=== PATIENT | female | born 1990 | race Caucasian/White ===

== ENCOUNTER 2021-09-22 13:46 | Outpatient (CLI) | payer BC, SELFPAY ==
--- NOTE | 2021-09-22 14:00 | CRLHL7_ITS ---
For Patients: As a result of the Century Cures Act, medical imaging exams and procedure reports are released immediately into your electronic medical record. You may view this report before your referring provider. If you have questions, please contact your health care provider. INDICATION: hx of delivery at 34w COMPARISON: 07/24/2021 TECHNIQUE: Limited transvaginal real time colunga scale imaging of the cervix was performed. FINDINGS: Cervix is closed and measures 3.9 cm. No funneling. heart rate 149 beats per minute. Placenta is posterior. IMPRESSION: Closed cervix measuring 3.9 cm. Dictated by Jose Antonio Wheeler MD @ 09/22/2021 2:57:29 PM (Electronically Signed)
== END 2021-09-22 13:47 | disposition home or self-care (01) ==
LOC: US 13:47
PROVIDERS: Visit Provider Advanced Practice Midwife
DX: O09.219 Supervision of pregnancy with history of pre-term labor, unspecified trimester (principal)
CPT/HCPCS: 76817

== ENCOUNTER 2021-10-23 15:59 | Outpatient (CLI) | payer BC, SELFPAY | END 2021-10-23 16:00 | disposition home or self-care (01) | LOC: NFLDREF 16:00 | PROVIDERS: Visit Provider Advanced Practice Midwife | DX: Z34.92 Encounter for supervision of normal pregnancy, unspecified, second trimester (principal); Z3A.21 21 weeks gestation of pregnancy | CPT/HCPCS: 87086 ==

== ENCOUNTER 2021-12-18 14:29 | Outpatient (CLI) | payer BC, SELFPAY ==
[2021-12-20 20:14] LABS: Rapid Plasma Reagin (RPR) Non Reactive (Non Reactive)
== END 2021-12-18 14:30 | disposition home or self-care (01) ==
PROVIDERS: Visit Provider Advanced Practice Midwife
DX: Z34.93 Encounter for supervision of normal pregnancy, unspecified, third trimester (principal); Z67.21 Type B blood, Rh negative; Z3A.28 28 weeks gestation of pregnancy
CPT/HCPCS: 86592; 86850

== ENCOUNTER 2022-01-08 14:55 | Outpatient (CLI) | payer BC, SELFPAY ==
--- NOTE | 2022-01-08 15:00 | CRLHL7_ITS ---
For Patients: As a result of the Century Cures Act, medical imaging exams and procedure reports are released immediately into your electronic medical record. You may view this report before your referring provider. If you have questions, please contact your health care provider. INDICATION: Third trimester scan, evaluate growth. HX OF LABOR, MEASURING SMALL FOR DATES COMPARISON: 09/22/2021 TECHNIQUE: Real time colunga scale imaging of the fetus was performed. FINDINGS: Sonographic imaging demonstrates a single living intrauterine gestation. Fetus demonstrates a regular cardiac rate of 139 beats per minute. Fetus has a vertex position. The placenta lies posterior. Amniotic fluid volume appears normal and there is a single deepest vertical pocket: 4.6 cm. The estimated weight is 1727gm which lies at the 24th %. BPD 86th percentile. HC 78th percentile. AC 43rd percentile. FL less than 3rd percentile. The HC/AC ratio measures 1.12 range (0.96-1.14). Transvaginal measurement of the cervix measures 3.7 cm. No funneling. IMPRESSION: Closed cervix measuring 3.7 cm. No funneling. Sonographic gestational age 32 weeks 1 day and sonographic due date 03/04/2022. Good correlation with dates. Normal interval growth. Estimated weight 24th percentile. Abdominal circumference 43rd percentile. Femur length less than 3rd percentile. Dictated by Jose Antonio Wheeler MD @ 01/09/2022 8:08:49 AM (Electronically Signed)
== END 2022-01-08 14:56 | disposition home or self-care (01) ==
LOC: US 14:55
PROVIDERS: Visit Provider Advanced Practice Midwife
DX: O36.5930 Maternal care for other known or suspected poor fetal growth, third trimester, not applicable or unspecified (principal); Z3A.32 32 weeks gestation of pregnancy
CPT/HCPCS: 76816; 76817

== ENCOUNTER 2022-01-19 14:58 | Outpatient (CLI) | payer BC, SELFPAY ==
--- OUTSIDE RECORDS SUMMARY | 2022-01-19 15:20 | XMS_ITS | Clinical Summary ---
:1990 Author Organization [facility] Address [address] [place] [id number] Care Team Providers Name Role Phone Unavailable Primary Care Provider Unavailable Allergies No known active allergies Medications No known medications Active Problems Problem Noted Date History of pneumothorax 04/19/2017 Adjustment disorder with anxious mood 09/11/2015 Underweight 12/12/2014 MVP (mitral valve prolapse) 12/12/2010 Resolved Problems Problem Noted Date Resolved Date Chronic left-sided low back pain with left-sided sciatica 04/17/2020 Migraine headache 12/03/2014 12/03/2014 Spontaneous pneumothorax, LEFT 12/19/2010 6 CARDIOVASCULAR SCREENING; LDL GOAL LESS THAN 160 01/12/2010 12/12/2014 Lumbar radiculopathy 03/26/2008 05/23/2008 Irregular menstrual cycle 01/26/2005 02/25/2016 Overview: heavy, frequent cycles, anovulation? Immunizations Name Administration Dates Next Due Mantoux Tuberculin Skin Test 09/19/2003 TD (ADULT, 7+) 12/27/2001 TDAP Vaccine (Boostrix) 10/25/2012 Family History Medical History Relation Comments Family History Negative Father Cancer - colorectal Maternal Grandfather Diabetes Maternal Grandfather Heart Disease Maternal Grandfather Prostate Cancer Maternal Grandfather Hypertension Maternal Grandmother Hypertension Mother Prostate Cancer Paternal Grandfather Breast Cancer Paternal Grandmother Relation Status Comments Father Alive Maternal Grandfather Alive Maternal Grandmother Alive Mother Alive Paternal Grandfather Alive Paternal Grandmother Alive Social History Tobacco Use Types Packs/Day Years Used Date Smoking Tobacco: Never Smokeless Tobacco: Never Tobacco Cessation: Counseling Given: No Alcohol Use Standard Drinks/Week Comments Yes 0 (1 standard drink = 0.6 oz pure alcoho l) Sex Assigned at Date Recorded Female 05/29/2020 7:33 PM CDT Last Filed Vital Signs Vital Sign Reading Time Taken Comments Blood Pressure 108/76 06/04/2020 9:57 AM CDT Pulse 68 06/04/2020 9:57 AM CDT Temperature 36.7 ??C (98 ??F) 06/04/2020 9:57 AM CDT Respiratory Rate 16 06/04/2020 9:57 AM CDT Oxygen Saturation 100% 06/04/2020 9:57 AM CDT Inhaled Oxygen Concentration - - Weight 47.8 kg (105 lb 6.4 oz) 06/04/2020 9:57 AM CDT Height 171.5 cm (5' 7.5) 06/04/2020 9:57 AM CDT Body Mass Index 16.26 06/04/2020 9:57 AM CDT Plan of Treatment Health Maintenance Due Date Last Done Comments ADVANCE CARE PLANNING 1990 ANNUAL REVIEW OF HM ORDERS 1990 HEPATITIS B IMMUNIZATION (1 1990 of 3 - 3-dose series) COVID-19 Vaccine (#1) 06/15/1990 HEPATITIS C SCREENING 12/16/2007 PHQ-2 (once per calendar 03/15/2021 05/27/2016, 09/11/2015, year) 04/27/2015, Additional history exists YEARLY PREVENTIVE VISIT 03/18/2021 03/18/2020, 02/25/2016, 02/25/2015, Additional history exists INFLUENZA VACCINE (#1) 2021 DTAP/TDAP/TD IMMUNIZATION 10/25/2022 10/25/2012, 12/27/2001 (3 - Td or Tdap) HPV TEST 03/18/2023 03/18/2020 PAP 03/18/2023 03/18/2020, 2016, 07/17/2014 MIGRAINE ACTION PLAN Completed 12/12/2014, 10/25/2012 HIV SCREENING Completed 06/05/2019 IPV IMMUNIZATION Aged Out No longer eligi ble based on patient 's age to complete this topic MENINGITIS IMMUNIZATION Aged Out No longe r eligible based on patient 's age to complete this topic Pneumococcal Vaccine: Aged Out No longer eligible Pediatrics (0 to 5 Years) based on patient's age and At-Risk Patients (6 to to co mplete this topic 64 Years) Insurance Payer Benefit Plan / Subscriber ID Effective Dates Phone Addre ss Type Group [place] [id number] 2017-Vera [phone] [address] [address] Indemnity t 0 [place] [address]
--- OUTSIDE RECORDS SUMMARY | 2022-01-19 15:20 | XMS_ITS | Encounter Summary ---
:1990 Author Organization [facility] Address [address] [place] [id number] Care Team Providers Name Role Phone Jayson Lombardo MD Primary Care Provider Unavailable Reason for Visit Reason Comments Heart Problem irregular heart beat Encounter Details Date Type Department Care Team Description 06/04/[address] [facility] Jayson Lombardo ons (Primary Clinic [place] MD [place] Dx) [address] [place] [address] Social History Tobacco Use Types Packs/Day Years Used Date Smoking Tobacco: Never Smokeless Tobacco: Never Alcohol Use Standard Drinks/Week Comments Yes 0 (1 standard drink = 0.6 oz pure alcoho l) Sex Assigned at Date Recorded Female 05/29/2020 7:33 PM CDT COVID-19 Exposure Response Date Recorded In the last month, have you been in contact with No / Unsure 06/04/2020 9:41 AM CDT someone who was 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 documented as of this encounter Last Filed Vital Signs Vital Sign Reading [...] Mass Index 16.26 06/04/2020 9:57 AM CDT documented in this encounter Progress Notes Jayson Lombardo MD - 06/04/2020 10:00 AM CDT Assessment & Plan Palpitations Normal EKG. Symptoms consistent with premature beats. If change in symptoms consider Zio patch monitor for 1 week. Patient agrees with plan. No follow-ups on file. Jayson Lombardo MD [facility] Ingram is a 29 year old who presents for the following health issues HPI Concern - irregular hearbeat Onset: 05/24 Description: feels heart beat changing. Intensity: Progression of Symptoms: Happens occasional, was happening more often the fist week Accompanying Signs & Symptoms: Previous history of similar problem: Precipitating factors: Worsened by: Alleviating factors: Improved by: Therapies tried and outcome: Patient with intermittent feeling of palpitations. Feels like her heart skips a beat. This lasts just for seconds. Does not have any dizziness or lightheadedness. Denies chest pain. No shortness of breath. This was worse after drinking a caffeinated beverage a few weeks ago. Has improved somewhat overthe past few weeks. Does not feel any palpitations with exertion. No exertional symptoms. Review of Systems RESP:NEGATIVE for significant cough or SOB CV: as above Objective BP 108/76 Pulse 68 Temp 98 ??F (36.7 ??C) (Oral) Resp 16 Ht 1.715 m (5' 7.5) Wt 47.8 kg (105 lb 6.4 oz) SpO2 100% BMI 16.26 kg/m?? Body mass index is 16.26 kg/m??. Physical Exam GENERAL: healthy, alert and no distress NECK: Small nontender right anterior cervical lymph node without significant swelling or erythema RESP: lungs clear to auscultation - no rales, rhonchi or wheezes CV: regular rates and rhythm, normal S1 S2, no S3 or S4, no murmur, click or rub and no peripheral edema EKG: Normal Sinus Rhythm, normal axis, normal intervals, no acute ST/T changes c/w ischemia, no LVH by voltage criteria, unchanged from previous tracings documented in this encounter Plan of Treatment Not on filedocumented as of this encounter Procedures Procedure Name Priority Date/Time Associated Diagnosis Comme nts EKG 12-LEAD COMPLETE Routine 06/04/2020 Results for this W/READ - CLINICS procedure a re in the results section . documented in this encounter Results EKG 12-lead complete w/read - Clinics (06/04/2020) Specimen (Source) Anatomical Location Collection Method / Collectio n Time Received Time / Laterality Volume Narrative This result has an attachment that is no t available. Jayson Lombardo MD ECG ORDERABLES documented in this encounter Visit Diagnoses Diagnosis Palpitations - Primary documented in this encounter Additional Health Concerns Assessment Noted Time PHQ-9 Depression Total Score: 9 09/12/2015 7:13 AM CDT documented as of this encounter Care Teams Lace Sewer Relationship Specialty Start Date End Date Jayson Lombardo MD PCP - General Family Practice 03/24/13 documented as of this encounter
--- OUTSIDE RECORDS SUMMARY | 2022-01-19 15:20 | XMS_ITS | Encounter Summary ---
:1990 Author Organization [facility] Address [address] [place] [address]. [place] [address] Care Team Providers Name Role Phone Jayson Lombardo MD Primary Care Provider Unavailable Jayson Lombardo MD Unavailable Unavailable Reason for Visit Rehab Therapy Physical Therapy (Routine) - Closed Specialty Diagnoses / Procedures Referred By Contact Refer red To Contact Physical Therapist / Diagnoses L sciatica/ Self, Irina @ [facility] in [place]/ [facility] Physical Therapy Procedures SPINE FOLLOW UP Sports & Physical Therapy - [facility] [address] [place] [address] Phone: Fax: Referral ID Status Reason Start Date Expiration Date Visits Requ ested Visits Authorized [id number] Closed 04/04/2020 03/14/2021 40 40 Encounter Details Date Type Department Care Team Description 04/17/2020 Therapy Visit [facility] Gurvinder Bauman, PT Chronic left-sided Rehabilitation Services [address] low back pain with [place] [address] left-sided sciatica [address] [place] [id number] Social History Tobacco Use Types Packs/Day Years Used Date Smoking Tobacco: Never Smokeless Tobacco: Never Alcohol Use Standard Drinks/Week Comments Yes 0 (1 standard drink = 0.6 oz pure alcoho l) Sex Assigned at Date Recorded Female 05/29/2020 7:33 PM CDT COVID-19 Exposure Response Date Recorded In the last month, have you been in contact with No / Unsure 04/17/2020 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 documented as of this encounter Progress Notes Gurvinder Bauman, PT - 04/17/2020 12:50 PM CST Subjective: HPI Physical Exam Objective: System Physical Exam General ROS Assessment/Plan: DISCHARGE REPORT Progress reporting period is from 01-31-2020 to 04-17-20. SUBJECTIVE Subjective changes noted by patient: Pt still notes intermittent pain. Some days are better than others. Current pain level is 2/10 . Previous pain level was 7/10 . Changes in function: Pt still notes pain with sitting on the floor and playing with her son. Adverse reaction to treatment or activity: None OBJECTIVE Changes noted in objective findings: Pt demonstrates a posterior rotation of the left inominate which pt can correct with a self MET. Pt remains tight in the hamstrings. Lumbar extension remains limited and painfully. ASSESSMENT/PLAN Updated problem list and treatment plan: Diagnosis 1: Left lumbar pain Pain - hot/cold therapy, US, self management, education, directional preference exercise and home program Decreased ROM/flexibility - manual therapy, therapeutic exercise, therapeutic activity and home program Decreased strength - therapeutic exercise, therapeutic activities and home program STG/LTGs have been met or progress has been made towards goals: Pt has shown limited progress towards goals Assessment of Progress: The patient's condition has potential to improve. Self Management Plans: Patient has been instructed in a home treatment program. I have re-evaluated this patient and find that the nature, scope, duration and intensity of the therapy is appropriate for the medical condition of the patient. Nataly continues to require the following intervention to meet STG and LTG's: PT Recommendations: This patient would benefit from further evaluation. Please refer to the daily flowsheet for treatment today, total treatment time and time spent performing 1:1 timed codes. INSPECTOR documented in this encounter Plan of Treatment Not on filedocumented as of this encounter Procedures Procedure Name Priority Date/Time Associated Diagnosis Comme nts MD THERAPEUTIC Routine 04/17/2020 3:00 PM Chronic left-sided l ow EXERCISES. EA 15 MIN TOOL INSPECTOR back pain with left-sided sciatica MD ULTRASOUND THERAPY, Routine 04/17/2020 3:00 PM Chronic left -sided low EA 15 MIN TOOL INSPECTOR back pain with left-sided sciatica documented in this encounter Visit Diagnoses Diagnosis Chronic left-sided low back pain with le ft-sided sciatica documented in this encounter Additional Health Concerns Assessment Noted Time PHQ-9 Depression Total Score: 9 09/12/2015 7:13 AM CDT documented as of this encounter Care Teams Payroll Administrator Relationship Specialty Start Date End Date Jayson Lombardo MD PCP - General Family Practice 03/24/13 Jayson Lombardo MD Assigned PCP 08/12/14 04/20/20 documented as of this encounter
--- OUTSIDE RECORDS SUMMARY | 2022-01-19 15:20 | XMS_ITS | Clinical Summary ---
:1990 Author Organization [facility] [place] [address] Care Team Providers Name Role Phone Víctor Zapata CN Unavailable Allergies Active Allergy Reactions Severity Noted Date Comments Coffee (Coffea Arabica) GI Upset 08/22/2021 Medications Medication Sig Dispensed Refills Start Date End Date Status 25/iron Take by mouth. 0 Active fum/folic/dha (-1 ORAL) CALCIUM ORAL Take by mouth. 0 Ac tive cholecalciferol, vitamin Take by mouth. 0 Active D3, (VITAMIN D3 ORAL) Lactobac no.41/Bifidobact Take by mouth. 0 Active no.7 (PROBIOTIC-10 ORAL) Active Problems Problem Noted Date History of delivery, currently 2021 History of pneumothorax 08/22/2021 Overview: 2011 Secondary to ruptured bleb/chest tu be and surgery (cleary resection) without post surgery complications [facility] Supervision of high-risk 08/20/2021 Overview: [facility] CONSULTATION ON 08/22/21 CONSULT VISIT ALERT: Create and link episode at day of visit . Document in Dating section LAUREN based on 07/24/21 7w5d Dating (different from SRO - US was not consistent with LMP) REASON FOR CONSULT: Hx PTD TODAY'S APPOINTMENT: MD Consultation PRIMARY DIAGNOSIS: 30 y.o. . Jeannine mated Date of Delivery: 02/22/22. 2019 34w4d NVD (PTL, neg wet prep and UA ) Migraines Depression/anxiety Hx mitral valve prolapse (resolved as sh e got older) Hx blebectomy and left wedge resection d /t multiple pneomothorax LAST GROWTH: 07/24/21 7w5d Dating REFERRING PHYSICIAN/PHONE/LAST UPDATE: Ronny Zapata CNM - [place] Primary MD approves scheduling of recomm ended ultrasounds/testing: Yes SPECIALISTS/CONSULTS: Include: Specialty MD Clinic Name Phone# [place] and ADDED TO PATIENT CARE TEAM Yes CARE COORDINATION: GENETICS: Declined PROCEDURES: PERTINENT LABS: Labs reviewed? Yes Normal? Yes PERTINENT MEDS: Preferred delivery location: MD PLAN OF CARE: Estimated Date of Delivery Comments Yes 03/07/2022 Based on Ultrasound Encounters Date Type Specialty Care Team Description 10/20/2021 Hospital Encounter Fred Lugo y of delivery, currently in first trimester; MD Jeremias History of pret erm delivery, currently from Last 3 Months Social History Tobacco Use Types Packs/Day Years Used Date Never Smoker Smokeless Tobacco: Never Used Alcohol Use Standard Drinks/Week Comments Not Currently 0 (1 standard drink = 0.6 oz pure alcoho l) Estimated Date of Delivery Comments Yes 03/07/2022 Based on Ultrasound Sex Assigned at Date Recorded Not on file Obstetrics History Para Term AB IAB SAB Ectopic Multiple Living Live Births 2 1 1 1 1 Date Outcome GA Total Labor/2nd/3rd Weight Sex Delivery Anes PTL Jessica A 1 A5 Name Clin Labor 04/03 34w 2.24 kg M Vag Y Lou /2019 4d (4 lb ng 15 oz) Delivery Location: [facility] ([place]) Current OB Episode Summary Episode Dates Estimated Date of Pregravid Weight TWG (As of ) Delivery 08/22/2021 - Present 03/07/2022 (01/19/2022) Date GA Fund Present FHR Mvmt BP Weight Edema Alb Glu Ket Dil/Eff/S ta 08/22/2021 11w6d Inpatient data not d isplayed here. See encounter summary. 10/20/2021 20w2d Inpatient data not d isplayed here. See encounter summary. Progress Notes 10/20/2021 - 20w2d - Taylor Aguilar MD [facility] Ultrasound 10/20/21 Your patient had an ultrasound with [facility] on 10/20/21 The report is ready and can be found in the Results review section [facility] the [facility]. The Impression from the report is below. Thank you for the opportunity to partici eileen in the care of this marjorie patient. Taylor Aguilar MD ............. ....... 10/20/2021 2:38 PM Referred By: VÍCTOR ZAPATA [facility] Indications Code 20 weeks gestation of Z3A.20 Declined serum screening Hx PTD @ 34w4d Migraines, depression, anxiety Hx mitral valve prolapse (resolved as pt got older) Hx blebectomy and lt wedge resection d/t multiple pneumothorax L2 + TVUS IMPRESSION: Intrauterine at 20w 2d. presentation is Variable. EFW 306 grams, percentile: 20. Growth parameters and estimated we ight are appropriate for gestational age. No major structural anomalies identified . No markers for aneuploidy identified. Normal Deepest Vertical Pocket of amniot ic fluid: 5.37 cm. Placental location: Posterior, left late ral. There is no evidence of placenta previa. The transvaginal cervical length is 3.3 cm. RECOMMENDATIONS: -Return to primary provider for continue d care. -The options of serum aneuploidy screeni ng and amniocentesis were presented. -No alterations in the delivery plan are necessary. -No medication changes are indicated. Co ntinue vaginal progesterone until 36 weeks. -No BPPs or NSTs suggested. -The option of amniocentesis was present ed. -No further ultrasounds are necessary fo r the present indication. COMMENT: Present findings are reassuring. The pat ient was seen by the Perinatologist today. The previous ultrasound and the records were reviewed. The results of today's ultrasound were communicated to the patient. Further cervical length scr eening may be performed with the primary OB office until 22 weeks. Reviewed recommendation to continue vaginal progesterone due to histroy of . All questions answered. Alternatives available for detecting fet al anomalies, aneuploidy and predicting developmental outcome for this were thoroughly discussed. The risks, benefits and limitations of maternal serum screening, ultrasound, and genetic amnio centesis were thoroughly reviewed with the patient. At the conclusion of our consultation the patient declined any further testing New government regulations related to Cures act require that this note be released to the patient immediately, sometimes before the referring provider has been contacted. A portion of t he information was presented verbally to the patient. The remainder is submitted as background for the referring provider, to be discussed as needed. Medical Decision Making: Low Level 46578 Limited Diagnoses including two or more self-limited problems, and history of Limited Data including review of prior ultrasound and review of prior external notes Minimal risk of mortality to the fetus from amniocentesis which was considered and declined. Services Provided: Procedures Code DETAIL ANATOMY 55752.0 TRANSVAGINAL ULTRASOUND 91902.0 08/22/2021 - 11w6d - Rosanne Boucher, RN TELEHEALTH As the RN for this telehealth service, I attest that I introduced myself to the patient, provided my credentials, disclosed my location, and determined that, based on a review of the patients chart and/ or a discussion with members of the [facility] ent's treatment team, a virtual visit is an appropriate and effective means of providing this service. The patient and I mutually agree that this visit is appropriate. This consult was done virtually with her in her home. No vital signs or heart rates were taken for this visit [facility] Vis it Patient scheduled for consultation due t o h/o of delivery at 34w. Hx depression, anxiety Is currently @ Unknown. She was referred by SARITHA Miranda Assessment Histories reviewed today include: Past M edical History, Past Surgical History, Social History and Family History and Obstetric History. Refer to the corresponding sections of the history section of [facility] chart and the [facility] Naviga tor for details. Comments under Consult in problem list updated after review with patient. Assessment: Patient's perception of movement: Has not felt movement yet. Normal movement discussed. Education Some basic routine education done during assessment. See patient education section for details. Patient states that all her questions were answered. Scheduled to consult with Dr. Parish rodriguez. Detailed verbal report given. After Visit Summary created and discusse d with patient on discharge. Yes Is referring provider within [facility]? no Note sent to Nursing Pool for consult fo rwarding reminder: yes RN time: 20 min Rosanne Boucher RN 08/22/2021 1:06 PM Last Filed Vital Signs Vital Sign Reading Time Taken Comments Blood Pressure - - Pulse - - Temperature - - Respiratory Rate - - Oxygen Saturation - - Inhaled Oxygen Concentration - - Weight 49 kg (108 lb) 08/22/2021 1:05 PM CDT Height 170.2 cm (5' 7) 08/22/2021 1:05 PM CDT Body Mass Index 16.92 08/22/2021 1:05 PM CDT Plan of Treatment Health Maintenance Due Date Last Done Comments COVID-19 vaccine series (#1) 06/15/1990 Tdap 2000 Depression screening for age 12+ 2001 BMI (ht and wt on same day) for age 18+ 12/16/2007 Hepatitis C screening for age 18-79 12/16/2007 Tetanus booster 2009 Influenza for age 9-49 11/13/2021 Pap test for age 21-65 03/18/2023 03/18/2020, 03/18/2020 Procedures Procedure Name Priority Date/Time Associated Diagnosis Comme nts US OB DETAIL Routine 10/20/2021 1:52 PM History of prete rm Results for this ANATOMY SINGLE CDT delivery, currently proced ure are in in first the result s trimester section. from Last 3 Months Results Detailed Anatomy Single (CPT 47164) (10/20/2021 1:52 PM CDT) Anatomical Region Laterality Modality , 2or 3 TRIMESTER Ult rasound Specimen (Source) Anatomical Collection Method Collection Time Re ceived Time Location / / Volume Laterality 10/20/2021 1:52 PM CDT Narrative 10/20/2021 3:02 PM CDT Referred By: VÍCTOR ??JOSÉ MIGUEL ??SARITHA Indications Code 20 weeks gestation of Z3A.20 Declined serum screening Hx PTD @ 34w4d Migraines, depression, anxiety Hx mitral valve prolapse (resolved as pt got older) Hx blebectomy and lt wedge resection d/t multiple pneumothorax L2 + TVUS IMPRESSION: Intrauterine at 20w 2d. presentation is Variable. EFW 306 grams, percentile: 20. ?? Growth parameters and estimated we ight are appropriate for gestational age. ? No major structural anomalies identified . No markers for aneuploidy identified. Normal Deepest Vertical Pocket of amniot ic fluid: 5.37 ??cm. Placental location: Posterior, left late ral. ?? There is no evidence of placenta previa. The transvaginal cervical length is 3.3 cm. ?? RECOMMENDATIONS: -Return to primary provider for continue d care. -The options of serum aneuploidy screeni ng and amniocentesis were presented. -No alterations in the delivery plan are necessary. -No medication changes are indicated. Co ntinue vaginal progesterone until 36 weeks. -No BPPs or NSTs suggested. -The option of amniocentesis was present ed. -No further ultrasounds are necessary fo r the present indication. COMMENT: Present findings are reassuring. The precious ient was seen by the Perinatologist today. ??The previous ultrasound and the rec ords were reviewed. ??The results of today's ultrasound were communicated to the patient. Furthe r cervical length screening may be performed with the primary OB office until 22 weeks. Review ed recommendation to continue vaginal progesterone due to histroy of . All questio ns answered. Alternatives available for detecting fet al anomalies, aneuploidy and predicting developmental outcome for this were thorough ly discussed. ??The risks, benefits and limitations of maternal serum screening, ultrasound, an d genetic amniocentesis were thoroughly reviewed with the patient. ??At the conclusion of our consultation the patient declined any further testing New government regulations related to Cures act require that this note be released to the patient immediately, siobhan etimes before the referring provider has been contacted. ??A portion of the informatio n was presented verbally to the patient. ??The remainder is submitted as background for the refer ring provider, to be discussed as needed. Medical Decision Making: Low Level 94973 ?Limited Diagnoses including two or more self-limited problems, and history of ?Limited Data including review of p rior ultrasound and review of prior external notes ?Minimal risk of mortality to the f etus from amniocentesis which was considered and declined. Services Provided: Procedures Code DETAIL ANATOMY 19922.0 TRANSVAGINAL ULTRASOUND 28881.0 Procedure Note Taylor Aguilar MD - 10/20/2021 Referred By: VÍCTOR ZAPATA [facility] IndicationsCode 20 weeks gestation of kytccwpvcP8G.20 Declined serum screening Hx PTD @ 34w4d Migraines, depression, anxiety Hx mitral valve prolapse (resolved as pt got older) Hx blebectomy and lt wedge resection d/t multiple pneumothorax L2 + TVUS IMPRESSION: Intrauterine at 20w 2d. presentation is Variable. EFW 306 grams, percentile: 20. Growth parameters and estimated we ight are appropriate for gestational age. No major structural anomalies identified . No markers for aneuploidy identified. Normal Deepest Vertical Pocket of amniot ic fluid: 5.37 cm. Placental location: Posterior, left late ral. There is no evidence of placenta previa. The transvaginal cervical length is 3.3 cm. RECOMMENDATIONS: -Return to primary provider for continue d care. -The options of serum aneuploidy screeni ng and amniocentesis were presented. -No alterations in the delivery plan are necessary. -No medication changes are indicated. Co ntinue vaginal progesterone until 36 weeks. -No BPPs or NSTs suggested. -The option of amniocentesis was present ed. -No further ultrasounds are necessary fo r the present indication. COMMENT: Present findings are reassuring. The pat ient was seen by the Perinatologist today. The previous ultrasound and the rec ords were reviewed. The results of today's ultrasound were communicated to the patient. Furthe r cervical length screening may be performed with the primary OB office until 22 weeks. Review ed recommendation to continue vaginal progesterone due to histroy of . All questio ns answered. Alternatives available for detecting fet al anomalies, aneuploidy and predicting developmental outcome for this were thorough ly discussed. The risks, benefits and limitations of maternal serum screening, ultrasound, an d genetic amniocentesis were thoroughly reviewed with the patient. At the conclusion of our co nsultation the patient declined any further testing New government regulations related to Cures act require that this note be released to the patient immediately, siobhan etimes before the referring provider has been contacted. A portion of the information was presented verbally to the patient. The remainder is submitted as background for the refer ring provider, to be discussed as needed. Medical Decision Making: Low Level 82999 Limited Diagnoses including two or more self-limited problems, and history of Limited Data including review of prior ultrasound and review of prior external notes Minimal risk of mortality to the fetus from amniocentesis which was considered and declined. Services Provided: ProceduresCode DETAIL [id number] TRANSVAGINAL [id number] Fred Lugo MD from Last 3 Months Insurance Payer Benefit Plan / Subscriber ID Effective Dates Phone Addre ss Type Group [employer]UE [employer] BL[employer] OF [id number] 2017-Present [address] [place] [address] Care Teams Retirement Village Manager Relationship Specialty Start Date End Date Víctor Zapata CNM Referring Provider Certified Nurse Mission Worker 08/14/21 3 1999 [place] [address]
--- OUTSIDE RECORDS SUMMARY | 2022-01-19 15:20 | XMS_ITS | Encounter Summary ---
:1990 Author Organization [facility] Address [address] [place] [address] Care Team Providers Name Role Phone Jayson Lombardo MD Primary Care Provider Unavailable Jayson Lombardo MD Unavailable Unavailable Encounter Details Date Type Department Care Team Description 03/13/2020 Travel Social History Tobacco Use Types Packs/Day Years Used Date Smoking Tobacco: Never Smokeless Tobacco: Never Alcohol Use Standard Drinks/Week Comments Yes 0 (1 standard drink = 0.6 oz pure alcoho l) Sex Assigned at Date Recorded Female 05/29/2020 7:33 PM CDT COVID-19 Exposure Response Date Recorded In the last month, have you been in contact with No / Unsure 03/13/2020 1:39 PM PERFUSIONIST someone who was 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 documented as of this encounter Plan of Treatment Not on filedocumented as of this encounter Visit Diagnoses Not on filedocumented in this encounter Additional Health Concerns Assessment Noted Time PHQ-9 Depression Total Score: 9 09/12/2015 7:13 AM CDT documented as of this encounter Care Teams Immigration Specialist Relationship Specialty Start Date End Date Jayson Lombardo MD PCP - General Family Practice 03/24/13 Jayson Lombardo MD Assigned PCP 08/12/14 04/20/20 documented as of this encounter
--- OUTSIDE RECORDS SUMMARY | 2022-01-19 15:20 | XMS_ITS | Encounter Summary ---
:1990 Author Organization [facility] Address [address] [place] [address] Care Team Providers Name Role Phone Jayson Lombardo MD Primary Care Provider Unavailable Encounter Details Date Type Department Care Team Description 06/04/2020 Travel Social History Tobacco Use Types Packs/Day [...] documented as of this encounter Care Teams Senior Accounting Specialist Relationship Specialty Start Date End Date Jayson Lombardo MD PCP - General Family Practice 03/24/13 documented as of this encounter
--- OUTSIDE RECORDS SUMMARY | 2022-01-19 15:20 | XMS_ITS | Encounter Summary ---
:1990 Author Organization [facility] Address [address] [place] [address] Care Team Providers Name Role Phone Jayson Lombardo MD Primary Care Provider Unavailable Jayson Lombardo MD Unavailable Unavailable Encounter Details Date Type Department Care Team Description 04/04/2020 Travel Social History Tobacco Use Types Packs/Day Years Used Date Smoking Tobacco: Never Smokeless Tobacco: Never Alcohol Use Standard Drinks/Week Comments Yes 0 (1 standard drink = 0.6 oz pure alcoho l) Sex Assigned at Date Recorded Female 05/29/2020 7:33 PM CDT COVID-19 Exposure Response Date Recorded In the last month, have you been in contact with No / Unsure 04/04/2020 1:32 PM PERSONAL CAREGIVER someone who was 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 documented as of this encounter Plan of Treatment Not on filedocumented as of this encounter Visit Diagnoses Not on filedocumented in this encounter Additional Health Concerns Assessment Noted Time PHQ-9 Depression Total Score: 9 09/12/2015 7:13 AM CDT documented as of this encounter Care Teams Scallop Shucker Relationship Specialty Start Date End Date Jayson Lombardo MD PCP - General Family Practice 03/24/13 Jayson Lombardo MD Assigned PCP 08/12/14 04/20/20 documented as of this encounter
--- OUTSIDE RECORDS SUMMARY | 2022-01-19 15:20 | XMS_ITS | Encounter Summary ---
:1990 Author Organization [facility] Address [address] [place] [address] Care Team Providers Name Role Phone Jayson Lombardo MD Primary Care Provider Unavailable Jayson Lombardo MD Unavailable Unavailable Encounter Details Date Type Department Care Team Description 04/17/2020 Travel Social History Tobacco Use Types Packs/Day Years Used Date Smoking Tobacco: Never Smokeless Tobacco: Never Alcohol Use Standard Drinks/Week Comments Yes 0 (1 standard drink = 0.6 oz pure alcoho l) Sex Assigned at Date Recorded Female 05/29/2020 7:33 PM CDT COVID-19 Exposure Response Date Recorded In the last month, have you been in contact with No / Unsure 04/17/2020 12:41 PM CLOTH DRIER someone who was 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 documented as of this encounter Plan of Treatment Not on filedocumented as of this encounter Visit Diagnoses Not on filedocumented in this encounter Additional Health Concerns Assessment Noted Time PHQ-9 Depression Total Score: 9 09/12/2015 7:13 AM CDT documented as of this encounter Care Teams Rn Family Relationship Specialty Start Date End Date Jayson Lombardo MD PCP - General Family Practice 03/24/13 Jayson Lombardo MD Assigned PCP 08/12/14 04/20/20 documented as of this encounter
--- OUTSIDE RECORDS SUMMARY | 2022-01-19 15:20 | XMS_ITS | Encounter Summary ---
:1990 Author Organization [facility] Address [address] [place] [address]. [place] [address] Care Team Providers Name Role Phone Jayson Lombardo MD Primary Care Provider Unavailable Jayson Lombardo MD Unavailable Unavailable Reason for Visit Rehab Therapy Physical Therapy (Routine) - Closed Specialty Diagnoses / Procedures Referred By Contact Refer red To Contact Physical Therapist / Diagnoses L sciatica/ Self, Irina @ [facility] in [place]/ [facility] Physical Therapy Procedures SPINE FOLLOW UP Sports & Physical Therapy - [facility] [address] [place] [address] Phone: Fax: Referral ID Status Reason Start Date Expiration Date Visits Requ ested Visits Authorized [id number] Closed 04/04/2020 03/14/2021 40 40 Encounter Details Date Type Department Care Team Description 04/04/2020 Therapy Visit [facility] Gurvinder Bauman, PT Chronic left-sided Rehabilitation Services [id number] [address] low back pain with [place] [address] left-sided sciatica [address] [place] [id number] Social History Tobacco Use Types Packs/Day Years Used Date Smoking Tobacco: Never Smokeless Tobacco: Never Alcohol Use Standard Drinks/Week Comments Yes 0 (1 standard drink = 0.6 oz pure alcoho l) Sex Assigned at Date Recorded Female 05/29/2020 7:33 PM CDT COVID-19 Exposure Response Date Recorded In the last month, have you been in contact with No / Unsure 04/04/2020 1:32 PM BUTTON SAWYER someone who was 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 documented as of this encounter Progress Notes Gurvinder Bauman, PT - 04/04/2020 1:30 PM CST Subjective: HPI Physical Exam Objective: System Physical Exam General ROS Assessment/Plan: SUBJECTIVE Subjective changes as noted by pt: Pt notes decrease in intensity and frequency of pain. Pain does not radiate as far down the leg as it did before Current pain level: 03/24 Changes in function: Pt has returned to modified Pilate's class without difficulty. Pt still notes difficulty with lumbar extension and pain increased towards the evening. Adverse reaction to treatment or activity: None OBJECTIVE Changes in objective findings: Trial of positional traction which helped decrease pain. Left posterior inominate noted which was corrected with MET> ASSESSMENT Nataly continues to require intervention to meet STG and LTG's: PT Patient's symptoms are resolving. Response to therapy has shown an improvement in pain level and function Progress made towards STG/LTG? Yes, PLAN Current treatment program is being advanced to more complex exercises. STEAM TANK OPERATOR/ATC plan: N/A Please refer to the daily flowsheet for treatment today, total treatment time and time spent performing 1:1 timed codes. ON SAWYER documented in this encounter Plan of Treatment Not on filedocumented as of this encounter Procedures Procedure Name Priority Date/Time Associated Diagnosis Comme nts ID THERAPEUTIC Routine 04/04/2020 2:30 PM Chronic left-sided l ow EXERCISES. EA 15 MIN BUTTON SAWYER back pain with left-sided sciatica ID ULTRASOUND THERAPY, Routine 04/04/2020 2:30 PM Chronic left -sided low EA 15 MIN BUTTON SAWYER back pain with left-sided sciatica documented in this encounter Visit Diagnoses Diagnosis Chronic left-sided low back pain with le ft-sided sciatica documented in this encounter Additional Health Concerns Assessment Noted Time PHQ-9 Depression Total Score: 9 09/12/2015 7:13 AM CDT documented as of this encounter Care Teams Paint Mixer Machine Relationship Specialty Start Date End Date Jayson Lombardo MD PCP - General Family Practice 03/24/13 Jayson Lombardo MD Assigned PCP 08/12/14 04/20/20 documented as of this encounter
--- OUTSIDE RECORDS SUMMARY | 2022-01-19 15:21 | XMS_ITS | Encounter Summary ---
:1990 Author Organization [facility] Address [address] [place] [address] Care Team Providers Name Role Phone Jayson Lombardo MD Primary Care Provider Unavailable Jayson Lombardo MD Unavailable Unavailable Encounter Details Date Type Department Care Team Description 01/31/2020 Travel Social History Tobacco Use Types Packs/Day Years Used Date Smoking Tobacco: Never Smokeless Tobacco: Never Alcohol Use Standard Drinks/Week Comments Yes 0 (1 standard drink = 0.6 oz pure alcoho l) Sex Assigned at Date Recorded Female 05/29/2020 7:33 PM CDT COVID-19 Exposure Response Date Recorded In the last month, have you been in contact with No / Unsure 01/31/2020 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 documented as of this encounter Plan of Treatment Not on filedocumented as of this encounter Visit Diagnoses Not on filedocumented in this encounter Additional Health Concerns Assessment Noted Time PHQ-9 Depression Total Score: 9 09/12/2015 7:13 AM CDT documented as of this encounter Care Teams Boiler Engineer Relationship Specialty Start Date End Date Jayson Lombardo MD PCP - General Family Practice 03/24/13 Jayson Lombardo MD Assigned PCP 08/12/14 04/20/20 documented as of this encounter
--- OUTSIDE RECORDS SUMMARY | 2022-01-19 15:21 | XMS_ITS | Encounter Summary ---
:1990 Author Organization [facility] Address [address] [place] [address] Care Team Providers Name Role Phone Jayson Lombardo MD Primary Care Provider Unavailable Reason for Visit Reason Onset Date Comments Formulary Issue 08/11/2013 SUMAtriptan 100MG Encounter Details Date Type Department Care Team Description 08/11/2013 Telephone [facility] Jayson Lombardo, Form [facility] Issue Clinic Roque RAMOS (SUMAtriptan 100MG) [address] [place] [address] Social History Tobacco Use Types Packs/Day Years Used Date Smoking Tobacco: Never Smokeless Tobacco: Never Alcohol Use Standard Drinks/Week Comments Yes 0 (1 standard drink = 0.6 oz pure alcoho l) Sex Assigned at Date Recorded Female 05/29/2020 7:33 PM CDT documented as of this encounter Miscellaneous Notes Telephone Encounter - Memo Wang - 08/24/2013 10:01 AM CDT PA approved for 18 tablets for 30 days. Pharmacy notified. Memo Wang XRT Telephone Encounter - Memo Wang - 08/11/2013 8:55 AM CDT PA submitted thru cover my meds for SUMAtriptan 100MG [facility] Memo Wang XRT documented in this encounter Plan of Treatment Not on filedocumented as of this encounter Visit Diagnoses Not on filedocumented in this encounter Care Teams Trouble Shooting Mechanic Relationship Specialty Start Date End Date Jayson Lombardo MD PCP - General Family Practice 03/24/13 documented as of this encounter
--- OUTSIDE RECORDS SUMMARY | 2022-01-19 15:21 | XMS_ITS | Encounter Summary ---
:1990 Author Organization [facility] Address [address] [place] [address] Care Team Providers Name Role Phone Jayson Lombardo MD Primary Care Provider Unavailable Reason for Visit Reason Onset Date Comments Forms 03/09/2014 Biometric screening form Encounter Details Date Type Department Care Team Description 03/09/2014 Telephone [facility] Jayson Lombardo, Form s ([facility] [place] screening form) [address] [place] [address] Social History Tobacco Use Types Packs/Day Years Used Date Smoking Tobacco: Never Smokeless Tobacco: Never Alcohol Use Standard Drinks/Week Comments Yes 0 (1 standard drink = 0.6 oz pure alcoho l) Sex Assigned at Date Recorded Female 05/29/2020 7:33 PM CDT documented as of this encounter Miscellaneous Notes Telephone Encounter - Mel Ruggiero - 03/09/2014 4:06 PM CST Received orders from patient,Dr. Lombardo reviewed the orders and signed them. Orders were faxed to , then orders were sent to abstraction and a copy to [employer] folder at the station. Mel Ruggiero President And Cmo TURBINE MECHANIC documented in this encounter Plan of Treatment Not on filedocumented as of this encounter Visit Diagnoses Not on filedocumented in this encounter Care Teams Jewelry Technician Relationship Specialty Start Date End Date Jayson Lombardo MD PCP - General Family Practice 03/24/13 documented as of this encounter
--- OUTSIDE RECORDS SUMMARY | 2022-01-19 15:21 | XMS_ITS | Encounter Summary ---
:1990 Author Organization [facility] Address [address] [facility] [place] [address] Care Team Providers Name Role Phone Jayson Lombardo MD Primary Care Provider Unavailable Reason for Visit Reason Comments Sick bleeding all the time, david watt cold Encounter Details Date Type Department Care Team Description 06/22/2014 Office Visit [facility], Excess tong or frequent menstruation (Primary Dx); [facility] [place] Chela Contreras PA-C IRREGULAR MENSTRUATION; [id number] [place] [address] Migraine, unspecified, without mention o f intractable migraine without mention of status migrainosus; [place] [id number] [phone] Social History Tobacco Use Types Packs/Day Years Used Date Smoking Tobacco: Never Smokeless Tobacco: Never Alcohol Use Standard Drinks/Week Comments Yes 0 (1 standard drink = 0.6 oz pure alcoho l) Sex Assigned at Date Recorded Female 05/29/2020 7:33 PM CDT documented as of this encounter Last Filed Vital Signs Vital Sign Reading Time Taken Comments Blood Pressure 110/70 06/22/2014 8:37 AM CDT Pulse 62 06/22/2014 8:37 AM CDT Temperature 35.9 ??C (96.6 ??F) 06/22/2014 8:37 AM CDT Respiratory Rate - - Oxygen Saturation 99% 06/22/2014 8:37 AM CDT Inhaled Oxygen Concentration - - Weight 48.2 kg (106 lb 3.2 oz) 06/22/2014 8:37 AM CDT Height 170.2 cm (5' 7) 06/22/2014 8:37 AM CDT Body Mass Index 16.63 06/22/2014 8:37 AM CDT documented in this encounter Progress Notes Chela Servin PA-C - 06/22/2014 8:42 AM CDT SUBJECTIVE: Nataly Simon is a 23 year old female who presents to clinic today for the following health issues: Acute Illness Acute illness concerns?- May 29 Onset: head cold, watt ?? Fever: YES- for a couple of days ?? Chills/Sweats: YES ?? Headache (location?): YES ?? Sinus Pressure:YES ?? Conjunctivitis: no ?? Ear Pain: YES: in the beginning ?? Rhinorrhea: no ?? Congestion: YES ?? Sore Throat: no ?? Cough: no ?? Wheeze: no ?? Decreased Appetite: no ?? Nausea: no ?? Vomiting: no ?? Diarrhea: no ?? Dysuria/Freq.: no ?? Fatigue/Achiness: YES ?? Sick/Strep Exposure: no Therapies Tried and outcome: Has had migraines for years and was on ocp and stopped this last october 2013 and noticed that after a few months after stopping ocp her migraines decreased and had a 75 day stretch with no migraines but recently its picking up again to weekly. The imitrex shortened it length. Tried topamax and this helped but side effects of wanting to kill herself so stopped that. Last migraine was 2 days ago and lasted approximately 6 hours and took imitrex and aleve immediately and helped resolve symptoms. Doesn't want to switch med right now Today is here Because has had BTB or menses for the last 3-4 weeks. Had a few months were menses were fairly normal prior to this. Has felt fatigued and run down lately and questioning whether anemic. Is not sexually active and has not been on ocp since last october Problem list and histories reviewed & adjusted, as indicated. Additional history: as documented BP Readings from Last 3 Encounters: 06/22/14 110/70 03/09/14 104/62 08/10/13 107/70 Wt Readings from Last 3 Encounters: 06/22/14 106 lb 3.2 oz (48.172 kg) 03/09/14 107 lb 14.4 oz (48.943 kg) 08/10/13 108 lb 12.8 oz (49.351 kg) ROS: Constitutional, HEENT, cardiovascular, pulmonary, gi and gu systems are negative, except as otherwise noted. OBJECTIVE: BP 110/70 Pulse 62 Temp(Src) 96.6 ??F (35.9 ??C) (Axillary) Ht 5' 7 (1.702 m) Wt 106 lb 3.2oz (48.172 kg) BMI 16.63 kg/m2 SpO2 99% LMP 06/02/2014 Body mass index is 16.63 kg/(m^2). GENERAL APPEARANCE: healthy, alert and no distress HENT: ear canals and TM's normal and nose and mouth without ulcers or lesions NECK: no adenopathy, no asymmetry, masses, or scars and thyroid normal to palpation RESP: lungs clear to auscultation - no rales, rhonchi or wheezes CV: regular rates and rhythm, normal S1 S2, no S3 or S4 and no murmur, click or rub SKIN: no suspicious lesions or rashes NEURO: Normal strength and tone, mentation intact, speech normal and cranial nerves 2-12 intact PSYCH: mentation appears normal and affect normal/bright ASSESSMENT/PLAN: (626.2) Excessive or frequent menstruation (primary encounter diagnosis) Comment: Plan: TSH with free T4 reflex (626.4) IRREGULAR MENSTRUATION Comment: stopped ocp last summer due to migraines and had fairly normal menses until recently and now had BTB for over a month. Usually really light but has to wear protection constantly. HGB is withinnormal limits. Has appointment set up with assurance engineer in early july Plan: CBC with platelets differential (346.90) Migraine, unspecified, without mention of intractable migraine without mention of status migrainosus Comment: Plan: stable and taking imitrex with aleve. Recommended Neurology consult but would like to wait on this today. (465.9) Viral URI Comment: Plan:The patient is advised to push fluids, rest, gargle warm salt water, use vaporizer or mist needed , use acetaminophen, aleve as needed and Return office visit if symptoms persist or worsen. See Patient Instructions Chela Servin PA-C, [facility] documented in this encounter Nursing Notes Giulia Lazar CMA - 06/22/2014 8:41 AM CDT Chief Complaint Patient presents with ??? Other bleeding all the time, migraines, Initial BP 110/70 Pulse 62 Temp(Src) 96.6 ??F (35.9 ??C) (Axillary) Ht 5' 7 (1.702 m) Wt 106 lb 3.2 oz (48.172 kg) BMI 16.63 kg/m2 SpO2 99% LMP 06/02/2014 Estimated body mass index is 16.63 kg/(m^2) as calculated from the following: Height as of this encounter: 5' 7 (1.702 m). Weight as of this encounter: 106 lb 3.2 oz (48.172 kg). BP completed using cuff size: regular Giulia Lazar CMA Health maintenance Pt. Not sexually active documented in this encounter Plan of Treatment Not on filedocumented as of this encounter Procedures Procedure Name Priority Date/Time Associated Diagnosis Comme nts CBC WITH PLATELETS & Routine 06/22/2014 9:10 AM IRREGULAR R esults for this DIFFERENTIAL CDT MENSTRUATION procedure are i n the results section. TSH WITH FREE T4 Routine 06/22/2014 9:10 AM Excessive Or Resul ts for this REFLEX CDT Frequent procedure are i n Menstruation the results section. documented in this encounter Results TSH with free T4 reflex (06/22/2014 9:10 AM CDT) P athologist Signature TSH 1.42 0.40 - 4.00 [facility] mU/L [facility] Specimen Anatomical Collection Method Collection Time Receive d Time (Source) Location / / Volume Laterality Blood specimen 06/22/2014 9:10 AM 015 9:11 (specimen) CDT AM CDT Chela Servin PA-C LAB - BLOOD ORDERABLES Performing Organization Address City/State/ZIP Code Phon e Number [facility] [address] [place] [address] CBC with platelets differential (06/22/2014 9:10 AM CDT) [facility] gist Method Time Signature WBC 6.5 4.0 - [place] 11.0 [facility] 10e9/L [place] RBC Count 4.65 3.8 - 5.2 [place] 10e12/L [facility] Hemoglobin 14.2 11.7 - [place] 15.7 g/dL [facility] Hematocrit 42.3 35.0 - [place] 47.0 % [facility] MCV 91 78 - 100 [facility] MCH 30.5 26.5 - [place] 33.0 pg [facility] MCHC 33.6 31.5 - [place] 36.5 g/dL [facility] RDW 13.5 10.0 - [place] 15.0 % [facility] Platelet Count 178 150 - 450 [place] 10e9/L [facility] Diff Method Automated [facility] % Neutrophils 56.2 % [facility] % Lymphocytes 31.2 % [facility] % Monocytes 8.9 % [facility] % Eosinophils 3.2 % [facility] % Basophils 0.5 % [facility] Absolute 3.7 1.6 - 8.3 [place] Neutrophil 10e9/L [facility] Absolute 2.0 0.8 - 5.3 [place] Lymphocytes 10e9/L [facility] Absolute 0.6 0.0 - 1.3 [place] Monocytes 10e9/L [facility] Absolute 0.2 0.0 - 0.7 [place] Eosinophils 10e9/L [facility] Absolute 0.0 0.0 - 0.2 [place] Basophils 10e9/L [facility] Specimen Anatomical Collection Method Collection Time Receive d Time (Source) Location / / Volume Laterality Blood specimen 06/22/2014 9:10 AM 015 9:11 (specimen) CDT AM CDT Chela Servin PA-C LAB - BLOOD ORDERABLES Performing Organization Address City/State/ZIP Code Phon e Number [facility] [address] [place] [address] documented in this encounter Visit Diagnoses Diagnosis Excessive or frequent menstruation - Shakira na IRREGULAR MENSTRUATION Irregular menstrual cycle Migraine, unspecified, without mention o f intractable migraine without mention of status migrainosus Viral URI Acute upper respiratory infections of un specified site documented in this encounter Care Teams Creel Selector Relationship Specialty Start Date End Date Jayson Lombardo MD PCP - General Family Practice 03/24/13 documented as of this encounter
--- OUTSIDE RECORDS SUMMARY | 2022-01-19 15:21 | XMS_ITS | Encounter Summary ---
:1990 Author Organization [place] Address [address] [place] [address] Care Team Providers Name Role Phone Jayson Lombardo MD Primary Care Provider Unavailable Jayson Lombardo MD Unavailable Unavailable Encounter Details Date Type Department Care Team Description 02/14/2020 Travel Social History Tobacco Use Types Packs/Day Years Used Date Smoking Tobacco: Never Smokeless Tobacco: Never Alcohol Use Standard Drinks/Week Comments Yes 0 (1 standard drink = 0.6 oz pure alcoho l) Sex Assigned at Date Recorded Female 05/29/2020 7:33 PM CDT COVID-19 Exposure Response Date Recorded In the last month, have you been in contact with No / Unsure 02/14/2020 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 documented as of this encounter Plan of Treatment Not on filedocumented as of this encounter Visit Diagnoses Not on filedocumented in this encounter Additional Health Concerns Assessment Noted Time PHQ-9 Depression Total Score: 9 09/12/2015 7:13 AM CDT documented as of this encounter Care Teams Paper Pattern Inspector Relationship Specialty Start Date End Date Jayson Lombardo MD PCP - General Family Practice 03/24/13 Jayson Lombardo MD Assigned PCP 08/12/14 04/20/20 documented as of this encounter
--- OUTSIDE RECORDS SUMMARY | 2022-01-19 15:21 | XMS_ITS | Encounter Summary ---
:1990 Author Organization [place] Address [address] [facility] [place] [address] Care Team Providers Name Role Phone Jayson Lombardo MD Primary Care Provider Unavailable Reason for Referral Consultation - Closed Specialty Diagnoses / Procedures Referred By Contact Refer red To Contact Diagnoses Headache(784.0) Chela Servin [facility] [address] [place] [address] [place] [address] Phone: Fax: Referral ID Status Reason Start Date Expiration Date Visits Requ ested Visits Authorized [id number] Closed 08/10/2013 02/06/2014 1 1 Reason for Visit Reason Comments Recheck Medication imitrex Encounter Details Date Type Department Care Team Description 08/10/2013 Office Visit [facility] Nakul Servin (Primary Dx); [facility] [place] Chela Contreras PA-C Migraines; [address] [address] [place] [facility] [place] [id number] Social History Tobacco Use Types Packs/Day Years Used Date Smoking Tobacco: Never Smokeless Tobacco: Never Alcohol Use Standard Drinks/Week Comments Yes 0 (1 standard drink = 0.6 oz pure alcoho l) Sex Assigned at Date Recorded Female 05/29/2020 7:33 PM CDT documented as of this encounter Last Filed Vital Signs Vital Sign Reading Time Taken Comments Blood Pressure 107/70 08/10/2013 8:38 AM CDT Pulse 91 08/10/2013 8:38 AM CDT Temperature 36.4 ??C (97.5 ??F) 08/10/2013 8:38 AM CDT Respiratory Rate - - Oxygen Saturation 100% 08/10/2013 8:38 AM CDT Inhaled Oxygen Concentration - - Weight 49.4 kg (108 lb 12.8 oz) 08/10/2013 8:38 AM CDT Height 170.2 cm (5' 7) 08/10/2013 8:38 AM CDT Body Mass Index 17.04 08/10/2013 8:38 AM CDT documented in this encounter Patient Instructions Patient InstructionsAasetacos-Chela Engel PA-C - 08/10/2013 9:04 AM CDT Images from the original note were not included. (797.15) Migraines Comment: Plan: Take 1 tablet (25 mg) at bedtime for 1 week, then 1 tablet twice daily for 1 week, then 1 tablet in AM and 2 in PM for 1 week, then 2 tablets twice daily. Please follow-up in 1-2 months Patient Education ?? Topiramate Oral capsule, sprinkles ?? Topiramate Oral tablet Topiramate Oral tablet What is this medicine? TOPIRAMATE (toe PYRE a mate) is used to treat seizures in adults or children with epilepsy. It is also used for the prevention of migraine headaches. This medicine may be used for other purposes; ask your health care provider or pharmacist if you have questions. What should I tell my health care provider before I take this medicine? They need to know if you have any of these conditions: ?? cirrhosis of the liver or liver disease ?? diarrhea ?? glaucoma ?? kidney stones or kidney disease ?? lung disease like asthma, obstructive pulmonary disease, emphysema ?? metabolic acidosis ?? on a ketogenic diet ?? schedule for surgery or a procedure ?? suicidal thoughts, plans, or attempt; a previous suicide attempt by you or a family member ?? an unusual or allergic reaction to topiramate, other medicines, foods, dyes, or preservatives ?? or trying to get ?? breast-feeding How should I use this medicine? Take this medicine by mouth with a glass of water. Follow the directions on the prescription label. Do not crush or chew. You may take this medicine with meals. Take your medicine at regular intervals.Do not take it more often than directed. Talk to your tile setter supervisor regarding the use of this medicine in children. Special care may be needed. While this drug may be prescribed for children as young as 2 years of age for selected conditions, precautions do apply. Overdosage: If you think you have taken too much of this medicine contact a poison control center [facility] room at once. NOTE: This medicine is only for you. Do not share this medicine with others. What if I miss a dose? If you miss a dose, take it as soon as you can. If it is almost time for your next dose, take only that dose. Do not take double or extra doses. What may interact with this medicine? Do not take this medicine with any of the following medications: ?? probenecid This medicine may also interact with the following medications: ?? acetazolamide ?? amitriptyline ?? dichlorphenamide ?? digoxin ?? hydrochlorothiazide ?? lithium ?? medicines for pain, sleep, or muscle relaxation ?? methazolamide ?? other seizure or epilepsy medicines ?? pioglitazone ?? risperidone This list may not describe all possible interactions. Give your health care provider a list of all the medicines, herbs, non-prescription drugs, or dietary supplements you use. Also tell them if you smoke, drink alcohol, or use illegal drugs. Some items may interact with your medicine. What should I watch for while using this medicine? Visit your doctor or health skin care instructor for regular checks on your progress. Do not stop taking this medicine suddenly. This increases the risk of seizures if you are using this medicine to control epilepsy. Wear a medical identification bracelet or chain to say you have epilepsy or seizures, and carry a card that lists all your medicines. This medicine can decrease sweating and increase your body temperature. Watch for signs of sweating or fever, especially in children. Avoid extreme heat, hot baths, and saunas. Be careful about exercising, especially in hot weather. Contact your health care provider right away if you notice afever or decrease in sweating. You should drink plenty of fluids while taking this medicine. If you have had kidney stones in the past, this will help to reduce your chances of forming kidney stones. If you have stomach pain, with nausea or vomiting and yellowing of your eyes or skin, call your doctor immediately. You may get drowsy, dizzy, or have blurred vision. Do not drive, use machinery, or do anything that needs mental alertness until you know how this medicine affects you. To reduce dizziness, do not sit or stand up quickly, especially if you are an older patient. Alcohol can increase drowsiness and dizziness. Avoid alcoholic drinks. If you notice blurred vision, eye pain, or other eye problems, seek medical attention at once for aneye exam. The use of this medicine may increase the chance of suicidal thoughts or actions. Pay special attention to how you are responding while on this medicine. Any worsening of mood, or thoughts of suicide or dying should be reported to your health skin care instructor right away. This medicine may increase the chance of developing metabolic acidosis. If left untreated, this can cause kidney stones, bone disease, or slowed growth in children. Symptoms include breathing fast, fatigue, loss of appetite, irregular heartbeat, or loss of consciousness. Call your doctor immediately if you experience any of these side effects. Also, tell your doctor about any surgery you plan on having while taking this medicine since this may increase your risk for metabolic acidosis. control pills may not work properly while you are taking this medicine. Talk to your doctor about using an extra method of control. Women who become while using this medicine may enroll in the [place]pileptic Drug Registry by calling . This registry collects information about the safetyof antiepileptic drug use during . What side effects may I notice from receiving this medicine? Side effects that you should report to your doctor or health skin care instructor as soon as possible: ?? allergic reactions like skin rash, itching or hives, swelling of the face, lips, or tongue ?? decreased sweating and/or rise in body temperature ?? depression ?? difficulty breathing, fast or irregular breathing patterns ?? difficulty speaking ?? difficulty walking or controlling muscle movements ?? hearing impairment ?? redness, blistering, peeling or loosening of the skin, including inside the mouth ?? tingling, pain or numbness in the hands or feet ?? unusually weak or tired ?? worsening of mood, thoughts or actions of suicide or dying Side effects that usually do not require medical attention (report to your doctor or health skin care instructor if they continue or are bothersome): ?? altered taste ?? back pain, joint or muscle aches and pains ?? diarrhea, or constipation ?? headache ?? loss of appetite ?? nausea ?? stomach upset, indigestion ?? tremors This list may not describe all possible side effects. Call your doctor for medical advice about sideeffects. You may report side effects to FDA at 3-460-WUG-8470. Where should I keep my medicine? Keep out of the reach of children. Store at room temperature between 15 and 30 degrees C (59 and 86 degrees F) in a tightly closed container. Protect from moisture. Throw away any unused medicine after the expiration date. NOTE:This sheet is a summary. It may not cover all possible information. If you have questions aboutthis medicine, talk to your doctor, pharmacist, or health care provider. Copyright?? 2013 Gold Standard documented in this encounter Progress Notes Chela Servin PA-C - 08/10/2013 8:39 AM CDT Images from the original note were not included. SUBJECTIVE: Nataly Simon is a 22 year old female who presents to clinic today for the following health issues: Medication Followup of imitrex ?? Taking Medication as prescribed: yes ?? Side Effects: None ?? Medication Helping Symptoms: yes Has been using imitrex and seems to work well as it shortens them up. Feels pretty fragile for the first day. Is getting migraines . Problem list and histories reviewed & adjusted, as indicated. Additional history: as documented BP Readings from Last 3 Encounters: 08/10/13 107/70 03/24/13 105/68 03/24/13 104/70 Wt Readings from Last 3 Encounters: 08/10/13 108 lb 12.8 oz (49.351 kg) 03/24/13 105 lb (47.628 kg) 01/05/13 109 lb (49.442 kg) ROS: Constitutional, HEENT, cardiovascular, pulmonary, gi and gu systems are negative, except as otherwise noted. OBJECTIVE: BP 107/70 Pulse 91 Temp(Src) 97.5 ??F (36.4 ??C) (Oral) Ht 5' 7 (1.702 m) Wt 108 lb 12.8 oz(49.351 kg) BMI 17.04 kg/m2 SpO2 100% Body mass index is 17.04 kg/(m^2). GENERAL APPEARANCE: healthy, alert and no distress HENT: ear canals and TM's normal and nose and mouth without ulcers or lesions RESP: lungs clear to auscultation - no rales, rhonchi or wheezes CV: regular rates and rhythm, normal S1 S2, no S3 or S4 and no murmur, click or rub LYMPHATICS: normal ant/post cervical and supraclavicular nodes NEURO: Normal strength and tone, mentation intact, speech normal and cranial nerves 2-12 intact ASSESSMENT/PLAN: (784.0) Headache (primary encounter diagnosis) Comment: Plan: NEUROLOGY ADULT REFERRAL (346.90) Migraines Comment: Plan: SUMAtriptan (IMITREX) 100 MG tablet, topiramate (TOPAMAX) 25 MG tablet (626.4) IRREGULAR MENSTRUATION Comment: refilled x 1 year. Is not sexually active, never been Plan: levonorgestrel-ethinyl estradiol (AVIANE) 0.1-20 MG-MCG per tablet Chela Servin PA-C, [facility] [place] Patient Instructions (346.90) Migraines Comment: Plan: Take 1 tablet (25 mg) at bedtime for 1 week, then 1 tablet twice daily for 1 week, then 1 tablet in AM and 2 in PM for 1 week, then 2 tablets twice daily. Please follow-up in 1-2 months Patient Education ?? Topiramate Oral capsule, sprinkles ?? Topiramate Oral tablet Topiramate Oral tablet What is this medicine? TOPIRAMATE (toe PYRE a mate) is used to treat seizures in adults or children with epilepsy. It is also used for the prevention of migraine headaches. This medicine may be used for other purposes; ask your health care provider or pharmacist if you have questions. What should I tell my health care provider before I take this medicine? They need to know if you have any of these conditions: ?? cirrhosis of the liver or liver disease ?? diarrhea ?? glaucoma ?? kidney stones or kidney disease ?? lung disease like asthma, obstructive pulmonary disease, emphysema ?? metabolic acidosis ?? on a ketogenic diet ?? schedule for surgery or a procedure ?? suicidal thoughts, plans, or attempt; a previous suicide attempt by you or a family member ?? an unusual or allergic reaction to topiramate, other medicines, foods, dyes, or preservatives ?? or trying to get ?? breast-feeding How should I use this medicine? Take this medicine by mouth with a glass of water. Follow the directions on the prescription label. Do not crush or chew. You may take this medicine with meals. Take your medicine at regular intervals.Do not take it more often than directed. Talk to your tile setter supervisor regarding the use of this medicine in children. Special care may be needed. While this drug may be prescribed for children as young as 2 years of age for selected conditions, precautions do apply. Overdosage: If you think you have taken too much of this medicine contact a poison control center [facility] room at once. NOTE: This medicine is only for you. Do not share this medicine with others. What if I miss a dose? If you miss a dose, take it as soon as you can. If it is almost time for your next dose, take only that dose. Do not take double or extra doses. What may interact with this medicine? Do not take this medicine with any of the following medications: ?? probenecid This medicine may also interact with the following medications: ?? acetazolamide ?? amitriptyline ?? dichlorphenamide ?? digoxin ?? hydrochlorothiazide ?? lithium ?? medicines for pain, sleep, or muscle relaxation ?? methazolamide ?? other seizure or epilepsy medicines ?? pioglitazone ?? risperidone This list may not describe all possible interactions. Give your health care provider a list of all the medicines, herbs, non-prescription drugs, or dietary supplements you use. Also tell them if you smoke, drink alcohol, or use illegal drugs. Some items may interact with your medicine. What should I watch for while using this medicine? Visit your doctor or health skin care instructor for regular checks on your progress. Do not stop taking this medicine suddenly. This increases the risk of seizures if you are using this medicine to control epilepsy. Wear a medical identification bracelet or chain to say you have epilepsy or seizures, and carry a card that lists all your medicines. This medicine can decrease sweating and increase your body temperature. Watch for signs of sweating or fever, especially in children. Avoid extreme heat, hot baths, and saunas. Be careful about exercising, especially in hot weather. Contact your health care provider right away if you notice afever or decrease in sweating. You should drink plenty of fluids while taking this medicine. If you have had kidney stones in the past, this will help to reduce your chances of forming kidney stones. If you have stomach pain, with nausea or vomiting and yellowing of your eyes or skin, call your doctor immediately. You may get drowsy, dizzy, or have blurred vision. Do not drive, use machinery, or do anything that needs mental alertness until you know how this medicine affects you. To reduce dizziness, do not sit or stand up quickly, especially if you are an older patient. Alcohol can increase drowsiness and dizziness. Avoid alcoholic drinks. If you notice blurred vision, eye pain, or other eye problems, seek medical attention at once for aneye exam. The use of this medicine may increase the chance of suicidal thoughts or actions. Pay special attention to how you are responding while on this medicine. Any worsening of mood, or thoughts of suicide or dying should be reported to your health skin care instructor right away. This medicine may increase the chance of developing metabolic acidosis. If left untreated, this can cause kidney stones, bone disease, or slowed growth in children. Symptoms include breathing fast, fatigue, loss of appetite, irregular heartbeat, or loss of consciousness. Call your doctor immediately if you experience any of these side effects. Also, tell your doctor about any surgery you plan on having while taking this medicine since this may increase your risk for metabolic acidosis. control pills may not work properly while you are taking this medicine. Talk to your doctor about using an extra method of control. Women who become while using this medicine may enroll in the [place]ptic Drug Registry by calling . This registry collects information about the safetyof antiepileptic drug use during . What side effects may I notice from receiving this medicine? Side effects that you should report to your doctor or health skin care instructor as soon as possible: ?? allergic reactions like skin rash, itching or hives, swelling of the face, lips, or tongue ?? decreased sweating and/or rise in body temperature ?? depression ?? difficulty breathing, fast or irregular breathing patterns ?? difficulty speaking ?? difficulty walking or controlling muscle movements ?? hearing impairment ?? redness, blistering, peeling or loosening of the skin, including inside the mouth ?? tingling, pain or numbness in the hands or feet ?? unusually weak or tired ?? worsening of mood, thoughts or actions of suicide or dying Side effects that usually do not require medical attention (report to your doctor or health skin care instructor if they continue or are bothersome): ?? altered taste ?? back pain, joint or muscle aches and pains ?? diarrhea, or constipation ?? headache ?? loss of appetite ?? nausea ?? stomach upset, indigestion ?? tremors This list may not describe all possible side effects. Call your doctor for medical advice about sideeffects. You may report side effects to FDA at 1-282-TKV-2263. Where should I keep my medicine? Keep out of the reach of children. Store at room temperature between 15 and 30 degrees C (59 and 86 degrees F) in a tightly closed container. Protect from moisture. Throw away any unused medicine after the expiration date. NOTE:This sheet is a summary. It may not cover all possible information. If you have questions aboutthis medicine, talk to your doctor, pharmacist, or health care provider. Copyright?? 2014 Gold Standard documented in this encounter Nursing Giulia Grant CMA - 08/10/2013 8:39 AM CDT Chief Complaint Patient presents with ??? Recheck Medication imitrex Initial BP 107/70 Pulse 91 Temp(Src) 97.5 ??F (36.4 ??C) (Oral) Ht 5' 7 (1.702 m) Wt 108 lb12.8 oz (49.351 kg) BMI 17.04 kg/m2 SpO2 100% Estimated body mass index is 17.04 kg/(m^2) as calculated from the following: Height as of this encounter: 5' 7 (1.702 m). Weight as of this encounter: 108 lb 12.8 oz (49.351 kg). BP completed using cuff size: justin Lazar CMA documented in this encounter Plan of Treatment Scheduled Referrals Name Type Priority Associated Diagnoses Order S gavin NEUROLOGY ADULT REFERRAL Referral Routine Headache Ord ered: 08/10/2013 documented as of this encounter Visit Diagnoses Diagnosis Headache(784.0) - Primary Headache Migraines Migraine, unspecified, without mention o f intractable migraine without mention of status migrainosus IRREGULAR MENSTRUATION Irregular menstrual cycle documented in this encounter Care Teams Extension Service Specialist Relationship Specialty Start Date End Date Jayson Lombardo MD PCP - General Family Practice 03/24/13 documented as of this encounter
--- OUTSIDE RECORDS SUMMARY | 2022-01-19 15:21 | XMS_ITS | Encounter Summary ---
:1990 Author Organization [facility] Address [address] [place] [address]. [place] [address] Care Team Providers Name Role Phone Jayson Lombardo MD Primary Care Provider Unavailable Jayson Lombardo MD Unavailable Unavailable Jayson Lombardo MD Unavailable Unavailable Reason for Visit Reason Comments Diarrhea Encounter Details Date Type Department Care Team Description 04/27/2015 Office Visit [facility] Marilyn Luna's diarrhea [facility] [place] FREDI Blackwood (Primary Dx) [facility] [id number] [facility] [address] [place] [address] SUITE [facility] [phone] [place], [place] (Work) [phone] [phone] Social History Tobacco Use Types Packs/Day Years Used Date Smoking Tobacco: Never Smokeless Tobacco: Never Tobacco Cessation: Counseling Given: No Alcohol Use Standard Drinks/Week Comments Yes 0 (1 standard drink = 0.6 oz pure alcoho l) Sex Assigned at Date Recorded Female 05/29/2020 7:33 PM CDT documented as of this encounter Last Filed Vital Signs Vital Sign Reading Time Taken Comments Blood Pressure 92/64 04/27/2015 10:50 AM EMERGENCY ROOM CLINICIAN Pulse 56 04/27/2015 10:50 AM EMERGENCY ROOM CLINICIAN Temperature 36.5 ??C (97.7 ??F) 04/27/2015 10:50 AM EMERGENCY ROOM CLINICIAN Respiratory Rate 12 04/27/2015 10:50 AM EMERGENCY ROOM CLINICIAN Oxygen Saturation 98% 04/27/2015 10:50 AM EMERGENCY ROOM CLINICIAN Inhaled Oxygen Concentration - - Weight 49 kg (108 lb) 04/27/2015 10:50 AM EMERGENCY ROOM CLINICIAN Height 170.8 cm (5' 7.25) 04/27/2015 10:50 AM EMERGENCY ROOM CLINICIAN Body Mass Index 16.79 04/27/2015 10:50 AM EMERGENCY ROOM CLINICIAN documented in this encounter Patient Instructions Patient InstructionsMarilyn Luna PA-C - 04/27/2015 11:01 AM EMERGENCY ROOM CLINICIAN Images from the original note were not included. Traveler's Diarrhea (Adult) Traveler's diarrhea is an infection in the intestinal tract caused by a bacteria called E coli. Thisbacteria is commonly found in water supplies of less developed countries. The local people of those countries are immune to E coli and don't get sick. Tourists who drink contaminated water or eat foodsthat were washed or prepared with this water may become very ill. The illness begins 1-3 days after exposure and lasts up to five days. Symptoms include fever, vomiting, stomach cramping and watery diarrhea. There may also be blood or mucus in the stool. Mild cases will get better without treatment. Antibiotics are used for more severe cases. Home care 1. If antibiotics were prescribed, the patient should take them until they are finished. 2. You may use acetaminophen (Tylenol) or ibuprofen (Motrin, Advil) to control fever, unless anothermedicine was prescribed. [NOTE: If the patient has chronic liver or kidney disease or has ever had astomach ulcer or GI bleeding, talk with the doctor before using these medicines.] (Aspirin should never be used in anyone under 18 years of age who is ill with a fever. It may cause severe liver damage.) 3. Do not give livy-tod-fecmuvi anti-diarrheal medicines, unless advised by??the doctor. 4. Once vomiting stops, follow these guidelines: DURING THE FIRST 12-24 HOURS follow the diet below: ?? --?? FRUIT JUICES: Strained orange juice or lemonade (no pulp); apple, grape and cranberry juice;clear fruit drinks, electrolyte replacement and sports drinks. ?? --?? BEVERAGES: Sport drinks such as Gatorade, soft drinks without caffeine; mineral water (plainor flavored); decaffeinated tea and coffee. ?? --?? SOUPS: Clear broth, consomm?? and bouillon. ?? --?? DESSERTS: Plain gelatin (Jell-O), popsicles and fruit juice bars; As you feel better, you may add 6-8 oz of yogurt per day. DURING THE NEXT 24 HOURS you may add the following to the above: ?? --?? Hot cereal, plain toast, bread, rolls, crackers ?? --?? Plain noodles, rice, mashed potatoes, chicken noodle or rice soup ?? --?? Unsweetened canned fruit (avoid pineapple), bananas ?? --?? Limit fat intake to less than 15 grams per day by avoiding margarine, butter, oils, mayonnaise, sauces, gravies, fried foods, peanut butter, meat, poultry and fish. ?? --?? Limit fiber; avoid raw or cooked vegetables, fresh fruits (except bananas) and bran cereals. ?? --?? Limit caffeine and chocolate. No spices or seasonings except salt. DURING THE NEXT 24 HOURS?? The patient can gradually resume a normal diet as the symptoms lessen. Follow Up with your doctor as advised. Call if not improving within 24 hours or if diarrhea lasts more than one week on antibiotics. If a stool (diarrhea) sample was taken, you may call in 2 days (or as directed) for the results. Get Prompt Medical Attention if any of the following occur: ?? Severe constant pain in the lower part of abdomen, on the right side ?? Continued vomiting (unable to keep liquids down) ?? Frequent diarrhea (more than 5 times a day); blood (red or black color) or mucus in diarrhea ?? Reduced oral intake ?? Reduced urine output or extreme thirst ?? Weakness, dizziness, fainting ?? Drowsiness, confusion, stiff neck or seizure ?? Fever of 100.4??F (38??C) oral or higher, not better with fever medication ?? [id number] [employer]. [address] [place] [address]. All rights reserved. This information is not intended as a substitute for professional medical care. Always follow your healthcare professional's instructions. GENCY ROOM CLINICIAN documented in this encounter Progress Notes Marilyn Luna PA-C - 04/27/2015 10:52 AM CST There are no preventive care reminders to display for this patient. Health Maintenance reviewed at today's visit patient asked to schedule/complete: None, Health Maintenance up to date. Leighann Underwood CMA SUBJECTIVE: Nataly Simon is a 24 year old female who presents to clinic today for the following health issues: Diarrhea Duration of complaint: 5 days. Patient traveled to [facility] and upon return has had diarrhea. Description: Consistency of stool: watery, runny and very soft Blood in stool: no Number of loose stools past 24 hours: 4-5 daily Fever: no Nausea/vomitting: no Abdominal pain: no Weight loss: no Recent antibiotics: no Recent travel: YES- [facility] Any contacts ill: no Therapies tried and outcome: none Additional complaints: None HPI additional notes: Nataly presents today with Chief Complaint Patient presents with ??? Diarrhea ROS: C: Negative for fever, chills, recent change in weight Skin: Negative for worrisome rashes or lesions ENT: Negative for ear, mouth and throat problems Resp: Negative for significant cough or SOB CV: Negative for chest pain or peripheral edema GI:POSITIVE for diarrhea and NEGATIVE for abdominal pain, heartburn or reflux, hematochezia, melena,nausea, vomiting and weight loss MS: Negative for significant arthralgias or myalgias P: Negative for changes in mood or affect Chart Review: History Smoking status ??? Never Smoker Smokeless tobacco ??? Never Used PHQ-9 SCORE 10/20/2014 12/12/2014 01/25/2015 Total Score 2 - - Total Score - 8 4 VAUGHN-7 SCORE 10/22/2014 12/12/2014 01/25/2015 Total Score 10 - - Total Score - 8 3 Patient Active Problem List Diagnosis ??? IRREGULAR MENSTRUATION ??? MVP (mitral valve prolapse) ??? Underweight Past Surgical History Procedure Laterality Date ??? Hc tooth extraction w/forcep 2008 ??? Thoracoscopic wedge resection lung 12/20/2010 Procedure:THORACOSCOPIC WEDGE RESECTION LUNG; Left Video Assisted Thoracoscopy, Apical Blebectomy ;Surgeon:JUSTA NGUYỄN; Location: OR Problem list, Medication list, Allergies, Medical/Social/Surg hx reviewed in [facility], updated as appropriate. OBJECTIVE: BP 92/64 mmHg Pulse 56 Temp(Src) 97.7 ??F (36.5 ??C) (Tympanic) Resp 12 Ht 5' 7.25 (1.708 m) Wt 108 lb (48.988 kg) BMI 16.79 kg/m2 SpO2 98% LMP 03/30/2015 (Approximate) ? No Body mass index is 16.79 kg/(m^2). GENERAL: healthy, alert, in no acute distress HENT: Mucous mebranes moist. NECK: Non-tender, no adenopathy. RESP: lungs clear to auscultation - no rales, no rhonchi, no wheezes CV: regular rate and rhythm, normal S1 S2. No peripheral edema. ABDOMEN:scaphoid, soft, non-tender to palpation. No hepatosplenomegaly or masses. Normal bowel sounds in all four quadrants. Hutchins's negative, Rovsing's negative. No rebound. SKIN: no suspicious lesions, no rashes PSYCH: Alert and oriented times 3; Able to articulate logical thoughts. Affect is normal. Diagnostic test results: none ASSESSMENT/PLAN: ICD-10-CM 1. Traveler's diarrhea A09 ciprofloxacin (CIPRO) 500 MG tablet If no improvement in 1 week call and will do stool studies. Please see patient instructions for treatment details. Follow up in 7-10 days if not improving as anticipated. Marilyn Luna PA-C [facility] GENCY ROOM CLINICIAN documented in this encounter Nursing Notes Leighann Underwood CMA - 04/27/2015 10:52 AM CST Chief Complaint Patient presents with ??? Diarrhea Initial BP 92/64 mmHg Pulse 56 Temp(Src) 97.7 ??F (36.5 ??C) (Tympanic) Resp 12 Ht 5' 7.25 (1.708 m) Wt 108 lb (48.988 kg) BMI 16.79 kg/m2 SpO2 98% LMP 03/30/2015 (Approximate) ? No Estimated body mass index is 16.79 kg/(m^2) as calculated from the following: Height as of this encounter: 5' 7.25 (1.708 m). Weight as of this encounter: 108 lb (48.988 kg). BP completed using cuff size: regular Leighann Underwood CMA GENCY ROOM CLINICIAN documented in this encounter Plan of Treatment Not on filedocumented as of this encounter Visit Diagnoses Diagnosis Traveler's diarrhea - Primary Infectious diarrhea documented in this encounter Additional Health Concerns Assessment Noted Time PHQ-9 Depression Total Score: 4 01/26/2015 7:25 AM EMERGENCY ROOM CLINICIAN documented as of this encounter Care Teams Lot Associate Relationship Specialty Start Date End Date Jayson Lombardo MD PCP - General Family Practice 03/24/13 Jayson Lombardo MD PCP - Assigned PCP 08/12/14 05/17/18 Jayson Lombardo MD Assigned PCP 08/12/14 04/20/20 documented as of this encounter
--- OUTSIDE RECORDS SUMMARY | 2022-01-19 15:21 | XMS_ITS | Encounter Summary ---
:1990 Author Organization [facility] Address [address] [place] [address]. [place] [address] Care Team Providers Name Role Phone Jayson Lombardo MD Primary Care Provider Unavailable Jayson Lombardo MD Unavailable Unavailable Jayson Lombardo MD Unavailable Unavailable Reason for Referral Consultation - Closed Specialty Diagnoses / Procedures Referred By Contact Refer red To Contact Diagnoses Hypothalamic hypogonadism (H) Irregular menses Jayson Lombardo MD [facility] [id number] [place] [id number] Referral ID Status Reason Start Date Expiration Date Visits Requ ested Visits Authorized [id number] Closed 12/12/2014 12/12/2015 1 1 Reason for Visit Reason Comments Refill Request Encounter Details Date Type Department Care Team Description 12/12/2014 Office Visit [facility] Jayson Lombardo Adjustmen t disorder with anxious mood (Primary Dx); Clinic Roque Echeverria MD Underweight; [id number] [facility] Hypothalamic hypogonadism (H ); [place], [place] Migraine with aura and without status migrainosus, not intractable; [id number] Irregular menses; [phone] Acute reaction to stress Social History Tobacco Use Types Packs/Day Years Used Date Smoking Tobacco: Never Smokeless Tobacco: Never Alcohol Use Standard Drinks/Week Comments Yes 0 (1 standard drink = 0.6 oz pure alcoho l) Sex Assigned at Date Recorded Female 05/29/2020 7:33 PM CDT documented as of this encounter Last Filed Vital Signs Vital Sign Reading Time Taken Comments Blood Pressure 104/70 12/12/2014 8:00 AM CDT Pulse 65 12/12/2014 8:00 AM CDT Temperature 36.5 ??C (97.7 ??F) 12/12/2014 8:00 AM CDT Respiratory Rate - - Oxygen Saturation 98% 12/12/2014 8:00 AM CDT Inhaled Oxygen Concentration - - Weight 47.6 kg (105 lb) 12/12/2014 8:00 AM CDT Height 170.2 cm (5' 7) 12/12/2014 8:00 AM CDT Body Mass Index 16.45 12/12/2014 8:00 AM CDT documented in this encounter Progress Notes Jayson Lombardo MD - 12/12/2014 9:12 AM CDT SUBJECTIVE: Nataly Simon is a 23 year old female who presents to clinic today for the following health issues: Patient presents with: Refill Request Patient here to discuss multiple medical issues. Has had increase in stress at work causing her to have symptoms of anxiety as well as some depressive symptoms over the past 2 months. Denies suicidal ideation. Has had panic type anxiety attacks for which she has been prescribed clonazepam which has helped with her symptoms. She has not had counseling in the past. No previous significant anxiety or depression issues. Mother with history of anxiety and taking Lexapro. Patient with history of migraine headaches with typical migraine with aura. She has visual aura withscotoma as well as nausea, phonophobia photophobia. No weakness or numbness. Previously treated withImitrex for abortive therapy and occasionally will take Aleve with that. This will lessen the headache to only being about 2-4 hours instead of 4-8 hours in duration but does not really stop headaches.Has tried Topamax for daily preventative medication in the past but this gave her adverse effects, she states it made her want to . Has not been on other preventative strategies. When she was on combined oral contraceptive she was having 3-4 headaches per month and after changing to progesterone only pill she is only having one headache every few months. Patient significantly underweight and having atypical cycles with irregular bleeding. This appears to be secondary to hypothalamic hypogonadism and not having ovulatory cycles. Patient has significant withdrawal bleed anytime she misses her progesterone only pill which would support that she is havingenough estrogen and normal ovulatory function but unlikely having ovulatory cycles. Has seen her [employer] HV[employer] R INSTRUCTOR for this issue and they changed her OCP but has not had further workup other than TSH. Patient Active Problem List Diagnosis ??? IRREGULAR MENSTRUATION ??? MVP (mitral valve prolapse) ??? Spontaneous pneumothorax, LEFT ??? Underweight Past Surgical History Procedure Laterality Date ??? Hc tooth extraction w/forcep 2008 ??? Thoracoscopic wedge resection lung 12/20/2010 Procedure:THORACOSCOPIC WEDGE RESECTION LUNG; Left Video Assisted Thoracoscopy, Apical Blebectomy ;Surgeon:JUSTA NGUYỄN; Location:[facility] OR History Substance Use Topics ??? Smoking status: Never Smoker ??? Smokeless tobacco: Never Used ??? Alcohol Use: 0.0 - 0.5 oz/week 0-1 drink(s) per week Family History Problem Relation Age of Onset ??? Hypertension Mother ??? Family History Negative Father ??? Heart Disease Maternal Grandfather ??? Diabetes Maternal Grandfather ??? Cancer - colorectal Maternal Grandfather ??? Prostate Cancer Maternal Grandfather ??? Hypertension Maternal Grandmother ??? Breast Cancer Paternal Grandmother ??? Prostate Cancer Paternal Grandfather ROS: NEURO: NEGATIVE for weakness, dizziness or paresthesias PSYCHIATRIC: As above, denies suicidal ideation OBJECTIVE: BP 104/70 mmHg Pulse 65 Temp(Src) 97.7 ??F (36.5 ??C) (Oral) Ht 5' 7 (1.702 m) Wt 105 lb (47.628 kg) BMI 16.44 kg/m2 SpO2 98% LMP 10/27/2014Body mass index is 16.44 kg/(m^2). GENERAL APPEARANCE: alert, no distress and underweight ASSESSMENT/PLAN: 1. Adjustment disorder with anxious mood Discussed counseling or treatment with SSRI. SSRI medication class can have side effects such as weight gain, sexual dysfunction, insomnia, headache, nausea. These medications are generally effective at alleviating symptoms of anxiety and/or depression. Follow-up in 4 weeks for medication check. Can continue to use clonazepam for panic type symptoms for now but discussed this is not long- term treatment. - escitalopram (LEXAPRO) 10 MG tablet; Take 1 tablet (10 mg) by mouth daily Dispense: 30 tablet; Refill: 1 2. Underweight Discussed calorie supplement, consider pneumatic jack operator. 3. Hypothalamic hypogonadism With irregular cycles I would recommend follow up with endocrinology to look for other cause. - ENDOCRINOLOGY ADULT REFERRAL 4. Migraine with aura and without status migrainosus, not intractable Recommend trial of different abortive therapy strategy as she is not having full resolution of headaches. No preventative therapy needed at this time with change in OCP she is only having headaches once every few months. Consider preventative strategy if abortive therapy is not able to resolve headaches. Migraine action plan reviewed. - rizatriptan (MAXALT) 10 MG tablet; Take 1 tablet (10 mg) by mouth at onset of headache for migraine May repeat dose in 2 hours. Do not exceed 30 mg in 24 hours Dispense: 18 tablet; Refill: 3 - naproxen (NAPROSYN) 500 MG tablet; Take 1 tablet (500 mg) by mouth 2 times daily as needed for moderate pain Dispense: 60 tablet; Refill: 0 5. Irregular menses - ENDOCRINOLOGY ADULT REFERRAL 6. Acute reaction to stress - clonazePAM (KLONOPIN) 0.5 MG tablet; Take 0.5-1 tablets (0.25-0.5 mg) by mouth 2 times daily as needed for anxiety Dispense: 20 tablet; Refill: 0 Jayson Lombardo MD [facility] documented in this encounter Nursing Notes Eduar Jeff CMA - 12/12/2014 8:05 AM CDT Added pap as HX and did a CARINA on 12/12/2014.Eduar Jeff CMA Chief Complaint Patient presents with ??? Refill Request Initial BP 104/70 mmHg Pulse 65 Temp(Src) 97.7 ??F (36.5 ??C) (Oral) Ht 5' 7 (1.702 m) Wt 105 lb (47.628 kg) BMI 16.44 kg/m2 SpO2 98% LMP 10/27/2014 Estimated body mass index is 16.44 kg/(m^2) as calculated from the following: Height as of this encounter: 5' 7 (1.702 m). Weight as of this encounter: 105 lb (47.628 kg). BP completed using cuff size: justin Jeff CMA documented in this encounter Plan of Treatment Scheduled Referrals Name Type Priority Associated Diagnoses Order S chedule ENDOCRINOLOGY ADULT Referral Routine Hypothalamic Ordered: 12/12/2014 REFERRAL hypogonadism (H) Irregular menses documented as of this encounter Procedures Procedure Name Priority Date/Time Associated Diagnosis Comme nts PAP IMAGED THIN LAYER Routine 07/17/2014 Result s for this SCREEN procedure are i n the results section . documented in this encounter Results PAP imaged thin layer screen (07/17/2014) P athologist Signature PAP Date NL EXTERNAL LAB Comment: HX PAP EXTERNAL LAB Specimen (Source) Anatomical Location Collection Method Collection Time Received Time / Laterality / Volume Cytologic material 07/17/2014 (specimen) Narrative This result has an attachment that is no t available. Jayson Lombardo MD LAB - [facility] CLINICAL SPECIM EN Performing Organization Address City/State/ZIP Code Phon e Number EXTERNAL LAB EXTERNAL LAB External Lab documented in this encounter Visit Diagnoses Diagnosis Adjustment disorder with anxious mood - Primary Adjustment disorder with anxiety Underweight Hypothalamic hypogonadism (H) Other anterior pituitary disorders Migraine with aura and without status mi grainosus, not intractable Migraine with aura, without mention of i ntractable migraine without mention of status migrainosus Irregular menses Irregular menstrual cycle Acute reaction to stress documented in this encounter Additional Health Concerns Assessment Noted Time PHQ-9 Depression Total Score: 8 12/13/2014 7:28 AM CDT documented as of this encounter Care Teams Grain Oilseed Or Pasture Farm Worker Relationship Specialty Start Date End Date Jayson Lombardo MD PCP - General Family Practice 03/24/13 Jayson Lombardo MD PCP - Assigned PCP 08/12/14 05/17/18 Jayson Lombardo MD Assigned PCP 08/12/14 04/20/20 documented as of this encounter
--- OUTSIDE RECORDS SUMMARY | 2022-01-19 15:21 | XMS_ITS | Encounter Summary ---
:1990 Author Organization [facility] Address [address] [place] [address] Care Team Providers Name Role Phone Jayson Lombardo MD Primary Care Provider Unavailable Reason for Visit Reason Onset Date Comments Panel Management 06/09/2013 Encounter Details Date Type Department Care Team Description 06/09/2013 Telephone [facility] Jayson Lombardo Ra, MD Panel Management [place] [id number] [place] [phone] Social History Tobacco Use Types Packs/Day Years Used Date Smoking Tobacco: Never Smokeless Tobacco: Never Alcohol Use Standard Drinks/Week Comments Yes 0 (1 standard drink = 0.6 oz pure alcoho l) Sex Assigned at Date Recorded Female 05/29/2020 7:33 PM CDT documented as of this encounter Miscellaneous Notes Telephone Encounter - Mel Ruggiero - 06/16/2013 11:30 AM CDT Called patient and LVM, sent a letter to because she has not read her mychart. Mel Ruggiero Motor And Generator Brush Cutter Telephone Encounter - Kym Sanchez CMA - 06/09/2013 10:57 AM CDT Panel Management Review Date of last visit with a [place] provider: unknown on 03/24/13. Date of next visit with a [place] provider: None. Problem List Patient Active Problem List Diagnosis ??? IRREGULAR MENSTRUATION ??? CARDIOVASCULAR SCREENING; LDL GOAL LESS THAN 160 ??? MVP (mitral valve prolapse) ??? Spontaneous pneumothorax, LEFT Health Maintenance List Health Maintenance Topic Date Due ??? Influenza Vaccine (System Assigned) 12/13/2013 ??? Tetanus Immunization (System Assigned) 10/25/2022 ??? Migraine Action Plan,one Time,no Inbasket Completed For diabetic patients with hyperlipidemia, only choose diabetes. Patient has the following on her problem list: Hyperlipidemia LDL goal on problem list: <160 Last LDL: LDL Cholesterol Calculated Date Value Range Status 08/19/2010 73 0 - 129 mg/dL Final LDL Cholesterol is the primary guide to therapy: LDL-cholesterol goal in high risk patients is <100 mg/dL and in very high risk patients is <70 mg/dL. LDL tested: Passed Tobacco : Passed Composite cancer screening Chart review shows that this patient is due/due soon for the following Pap Smear No results found for this basename: pap Past Surgical History Procedure Date ??? Hc tooth extraction w/forcep 2008 ??? Thoracoscopic wedge resection lung 12/20/2010 Procedure:THORACOSCOPIC WEDGE RESECTION LUNG; Left Video Assisted Thoracoscopy, Apical Blebectomy ;Surgeon:JUSTA NGUYỄN; Location:[facility] OR Is hysterectomy listed in surgical history? No Is mastectomy listed in surgical history? No Tobacco History History Smoking status ??? Never Smoker Smokeless tobacco ??? Never Used Summary: Patient is due/failing the following: PAP Action needed: Patient needs office visit for pap. Type of outreach: Sent [employer] message. Questions for provider review: None Please indicate office visit, lab, MTM, or nurse appt if needed. Indicate fasting or not fasting. Kym Sanchez CMA Chart routed to Care Team . documented in this encounter Plan of Treatment Not on filedocumented as of this encounter Visit Diagnoses Not on filedocumented in this encounter Care Teams Filter Operator Relationship Specialty Start Date End Date Jayson Lombardo MD PCP - General Family Practice 03/24/13 documented as of this encounter
--- OUTSIDE RECORDS SUMMARY | 2022-01-19 15:21 | XMS_ITS | Encounter Summary ---
:1990 Author Organization [facility] Address [address] [place] [address] Care Team Providers Name Role Phone Jayson Lombardo MD Primary Care Provider Unavailable Jayson Lombardo MD Unavailable Unavailable Encounter Details Date Type Department Care Team Description 03/01/2020 Travel Social History Tobacco Use Types Packs/Day Years Used Date Smoking Tobacco: Never Smokeless Tobacco: Never Alcohol Use Standard Drinks/Week Comments Yes 0 (1 standard drink = 0.6 oz pure alcoho l) Sex Assigned at Date Recorded Female 05/29/2020 7:33 PM CDT COVID-19 Exposure Response Date Recorded In the last month, have you been in contact with No / Unsure 03/01/2020 11:02 AM [employer] someone who was 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 documented as of this encounter Plan of Treatment Not on filedocumented as of this encounter Visit Diagnoses Not on filedocumented in this encounter Additional Health Concerns Assessment Noted Time PHQ-9 Depression Total Score: 9 09/12/2015 7:13 AM CDT documented as of this encounter Care Teams Production Cost Estimator Relationship Specialty Start Date End Date Jayson Lombardo MD PCP - General Family Practice 03/24/13 Jayson Lombardo MD Assigned PCP 08/12/14 04/20/20 documented as of this encounter
--- OUTSIDE RECORDS SUMMARY | 2022-01-19 15:21 | XMS_ITS | Encounter Summary ---
:1990 Author Organization [facility] Address [address] [place] [address] Care Team Providers Name Role Phone Jayson Lombardo MD Primary Care Provider Unavailable Jayson Lombardo MD Unavailable Unavailable Jayson Lombardo MD Unavailable Unavailable Reason for Visit Reason Comments URI Encounter Details Date Type Department Care Team Description 04/19/[address] [facility] Jayson Lombardo Viral URI (Primary Dx); Clinic Roque Echeverria MD Traveler's diarrhea [address] [place] [address] Social History Tobacco Use Types Packs/Day Years Used Date Smoking Tobacco: Never Smokeless Tobacco: Never Alcohol Use Standard Drinks/Week Comments Yes 0 (1 standard drink = 0.6 oz pure alcoho l) Sex Assigned at Date Recorded Female 05/29/2020 7:33 PM CDT documented as of this encounter Last Filed Vital Signs Vital Sign Reading Time Taken Comments Blood Pressure 110/78 04/19/2017 9:42 AM SECONDARY SCHOOL PRINCIPAL Pulse 68 04/19/2017 9:42 AM [employer]INCIPAL Temperature 36.4 ??C (97.6 ??F) 04/19/2017 9:42 AM [employer]INCIPAL Respiratory Rate 14 04/19/2017 9:42 AM [employer]INCIPAL Oxygen Saturation 99% 04/19/2017 9:42 AM [employer]INCIPAL Inhaled Oxygen Concentration - - Weight 49.3 kg (108 lb 11.2 oz) 04/19/2017 9:42 AM [employer] PRINCIPAL Height 171.5 cm (5' 7.5) 04/19/2017 9:42 AM [employer]AL Body Mass Index 16.77 04/19/2017 9:42 AM SEC[employer] SCHOOL PRINCIPAL documented in this encounter Progress Notes Jayson Lombardo MD - 04/19/2017 9:40 AM CST SUBJECTIVE: Nataly Jerome is a 26 year old female who presents to clinic today for the following health issues: Patient reports a cough for the past eight days. Her lungs feel heavy and she has a sore throat. Shehas had a fever, fatigue, body aches and sinus congestion. Patient reports improving diarrhea. She currently has two or three loose watery stools per day. She recently traveled to [place]. Denies nausea, blood in stools. Problem list and histories reviewed & adjusted, as indicated. Additional history: as documented Patient Active Problem List Diagnosis ??? MVP (mitral valve prolapse) ??? Underweight ??? Adjustment disorder with anxious mood ??? History of pneumothorax Past Surgical History: Procedure Laterality Date ??? HC TOOTH EXTRACTION W/FORCEP 2008 ??? THORACOSCOPIC WEDGE RESECTION LUNG 12/20/2010 Procedure:THORACOSCOPIC WEDGE RESECTION LUNG; Left Video Assisted Thoracoscopy, Apical Blebectomy ;Surgeon:JUSTA NGUYỄN; Location: OR Social History Substance Use Topics ??? Smoking status: Never Smoker ??? Smokeless tobacco: Never Used ??? Alcohol use 0.0 - 0.5 oz/week 0 - 1 Standard drinks or equivalent per week Family History Problem Relation Age of Onset ??? Hypertension Mother ??? Family History Negative Father ??? HEART DISEASE Maternal Grandfather ??? DIABETES Maternal Grandfather ??? Cancer - colorectal Maternal Grandfather ??? Prostate Cancer Maternal Grandfather ??? Hypertension Maternal Grandmother ??? Breast Cancer Paternal Grandmother ??? Prostate Cancer Paternal Grandfather Reviewed and updated as needed this visit by clinical staff Tobacco Allergies Meds Problems Med Hx Surg Hx Fam Hx Soc Hx Reviewed and updated as needed this visit by Provider Allergies Meds Problems ROS: CONSTITUTIONAL: as above ENT/MOUTH: as above R: as above GI: as above This document serves as a record of the services and decisions personally performed and made by Jayson Lombardo MD. It was created on his behalf by Mer Avitia, a trained medical observer. The creation of this document is based on the provider's statements to the medical observer. Mer Avitia 9:55 AM April 19, 2017 OBJECTIVE: BP 110/78 (BP Location: Right arm, Patient Position: Chair, Cuff Size: Adult Regular) Pulse 68 Temp 97.6 ??F (36.4 ??C) (Oral) Resp 14 Ht 1.715 m (5' 7.5) Wt 49.3 kg (108 lb 11.2 oz) LMP 04/16/2017 (Exact Date) SpO2 99% ? No BMI 16.77 kg/m2 Body mass index is 16.77 kg/(m^2). GENERAL: healthy, alert and no distress EYES: Eyes grossly normal to inspection, PERRL and conjunctivae and sclerae normal HENT: clear post nasal drainage, otherwise ear canals and TM's normal, nose and mouth without ulcersor lesions RESP: lungs clear to auscultation - no rales, rhonchi or wheezes CV: regular rate and rhythm, normal S1 S2, no S3 or S4, no murmur, click or rub, no peripheral edemaand peripheral pulses strong ASSESSMENT/PLAN: 1. Viral URI Symptomatic management for viral upper respiratory illness. Acetaminophen or ibuprofen for pain or fever. Use robitussin DM for cough. Return if worsening. 2. Traveler's diarrhea - ciprofloxacin (CIPRO) 500 MG tablet; Take 1 tablet (500 mg) by mouth 2 times daily Dispense: 6 tablet; Refill: 0 The information in this document, created by the medical observer for me, accurately reflects the services I personally performed and the decisions made by me. I have reviewed and approved this document for accuracy prior to leaving the patient care area. April 19, 2017 10:09 AM Jayson Lombardo MD [facility] [employer] documented in this encounter Nursing Notes Stacey Park - 04/19/2017 9:40 AM CST Chief Complaint Patient presents with ??? URI Initial BP 110/78 (BP Location: Right arm, Patient Position: Chair, Cuff Size: Adult Regular) Pulse 68 Temp 97.6 ??F (36.4 ??C) (Oral) Resp 14 Ht 5' 7.5 (1.715 m) Wt 108 lb 11.2 oz (49.3 kg) LMP 04/16/2017 (Exact Date) SpO2 99% ? No BMI 16.77 kg/m2 Estimated body mass index is 16.77 kg/(m^2) as calculated from the following: Height as of this encounter: 5' 7.5 (1.715 m). Weight as of this encounter: 108 lb 11.2 oz (49.3 kg). Medication Reconciliation: complete Health Maintenance addressed: NONE N/a BULMARO Esteves [employer]IPAL documented in this encounter Plan of Treatment Not on filedocumented as of this encounter Visit Diagnoses Diagnosis Viral URI - Primary Acute upper respiratory infections of un specified site Traveler's diarrhea Infectious diarrhea documented in this encounter Additional Health Concerns Assessment Noted Time PHQ-9 Depression Total Score: 9 09/12/2015 7:13 AM CDT documented as of this encounter Care Teams Real Estate Developer Relationship Specialty Start Date End Date Jayson Lombardo MD PCP - General Family Practice 03/24/13 Jayson Lombardo MD PCP - Assigned PCP 08/12/14 05/17/18 Jayson Lombardo MD Assigned PCP 08/12/14 04/20/20 documented as of this encounter
--- OUTSIDE RECORDS SUMMARY | 2022-01-19 15:21 | XMS_ITS | Encounter Summary ---
:1990 Author Organization [facility] Address [address] [place] [address] Care Team Providers Name Role Phone Jayson Lombardo MD Primary Care Provider Unavailable Jayson Lombardo MD Unavailable Unavailable Jayson Lombardo MD Unavailable Unavailable Reason for Visit Reason Onset Date Comments Forms 02/26/2015 Annual Physical Veri ficiation Encounter Details Date Type Department Care Team Description 02/26/2015 Telephone [facility] Jayson Lombardo, Form s (Annual Physical Clinic [place] Verificiation) [address] [place] [address] Social History Tobacco Use Types Packs/Day Years Used Date Smoking Tobacco: Never Smokeless Tobacco: Never Alcohol Use Standard Drinks/Week Comments Yes 0 (1 standard drink = 0.6 oz pure alcoho l) Sex Assigned at Date Recorded Female 05/29/2020 7:33 PM CDT documented as of this encounter Miscellaneous Notes Telephone Encounter - Bahman Mel - 02/26/2015 1:35 PM CST Received orders from Annual Physical Verification,Dr. Lombardo reviewed the orders and signed them. Orders were placed up at the hotel desk clerk for patient to pickling machine operator LVM stating is it ready to be picked up, then orders were sent to abstraction and a copy to [facility] folder at the station. Mel Ruggiero Office Machines Sales Representative MOLDER documented in this encounter Plan of Treatment Not on filedocumented as of this encounter Visit Diagnoses Not on filedocumented in this encounter Additional Health Concerns Assessment Noted Time PHQ-9 Depression Total Score: 4 01/26/2015 7:25 AM DECK MOLDER documented as of this encounter Care Teams Roller Leveler Operator Relationship Specialty Start Date End Date Jayson Lombardo MD PCP - General Family Practice 03/24/13 Jayson Lombardo MD PCP - Assigned PCP 08/12/14 05/17/18 Jayson Lombardo MD Assigned PCP 08/12/14 04/20/20 documented as of this encounter
--- OUTSIDE RECORDS SUMMARY | 2022-01-19 15:21 | XMS_ITS | Encounter Summary ---
:1990 Author Organization [facility] Address [address] [place] [address] Care Team Providers Name Role Phone Jayson Lombardo MD Primary Care Provider Unavailable Jayson Lombardo MD Unavailable Unavailable Reason for Visit [facility] (Routine) - Closed Specialty Diagnoses / Procedures Referred By Contact Refer red To Contact Physical Therapist / Diagnoses L sciatica/ Irina Ibrahim @ [facility] in [place]/ [facility] Self, Referred, Gurvinder Cross, PT Physical Therapy Procedures [facility] [address] [place], [place] [address] Phone: Fax: Referral ID Status Reason Start Date Expiration Date Visits Requ ested Visits Authorized [id number] Closed 01/31/2020 03/14/2020 40 40 Encounter Details Date Type Department Care Team Description 03/13/2020 Therapy Visit [facility] Gurvinder Gan, PT Chronic left-sided Rehabilitation Services [address] low back pain with [place] [address] left-sided sciatica [address] [place] [phone] Social History Tobacco Use Types Packs/Day Years Used Date Smoking Tobacco: Never Smokeless Tobacco: Never Alcohol Use Standard Drinks/Week Comments Yes 0 (1 standard drink = 0.6 oz pure alcoho l) Sex Assigned at Date Recorded Female 05/29/2020 7:33 PM CDT COVID-19 Exposure Response Date Recorded In the last month, have you been in contact with No / Unsure 03/13/2020 1:39 PM PHOTO MASK INSPECTOR someone who was 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 documented as of this encounter Progress Notes Gurvinder Bauman, PT - 03/13/2020 1:40 PM CST Subjective: The history is provided by the patient. No language instructor was used. Physical Exam Objective: System Physical Exam General ROS Assessment/Plan: SUBJECTIVE Subjective changes as noted by pt: Pt notes decreased pain and paresthesia in lumbar region and leftlower extremity Current pain level: 1/10 Changes in function: Pt still notes difficulty with LENA position. Adverse reaction to treatment or activity: None OBJECTIVE Changes in objective findings: Pt demonstrates improved hamstring flexibility. Abdominal strength improved. Pelvic base even. ASSESSMENT Nataly continues to require intervention to meet STG and LTG's: PT Patient's symptoms are resolving. Response to therapy has shown an improvement in pain level and paresthesia Progress made towards STG/LTG? Yes, PLAN Current treatment program is being advanced to more complex exercises. The following modalities have been added: ultrasound LAYOUT INSPECTOR/ATC plan: N/A Please refer to the daily flowsheet for treatment today, total treatment time and time spent performing 1:1 timed codes. O MASK INSPECTOR documented in this encounter Plan of Treatment Not on filedocumented as of this encounter Procedures Procedure Name Priority Date/Time Associated Diagnosis Comme nts [place] THERAPEUTIC Routine 03/13/2020 4:44 PM Chronic left-sided l ow EXERCISES. EA 15 MIN PHOTO MASK INSPECTOR back pain with left-sided sciatica [place] ULTRASOUND THERAPY, Routine 03/13/2020 4:44 PM Chronic left -sided low EA 15 MIN PHOTO MASK INSPECTOR back pain with left-sided sciatica documented in this encounter Visit Diagnoses Diagnosis Chronic left-sided low back pain with le ft-sided sciatica documented in this encounter Additional Health Concerns Assessment Noted Time PHQ-9 Depression Total Score: 9 09/12/2015 7:13 AM CDT documented as of this encounter Care Teams Events Manager Relationship Specialty Start Date End Date Jayson Lombardo MD PCP - General Family Practice 03/24/13 Jayson Lombardo MD Assigned PCP 08/12/14 04/20/20 documented as of this encounter
--- OUTSIDE RECORDS SUMMARY | 2022-01-19 15:21 | XMS_ITS | Encounter Summary ---
:1990 Author Organization [facility] Address [address] [place] [address] Care Team Providers Name Role Phone Jayson Lombardo MD Primary Care Provider Unavailable Jayson Lombardo MD Unavailable Unavailable Jayson Lombardo MD Unavailable Unavailable Reason for Visit Reason Comments Recheck Medication Encounter Details Date Type Department Care Team Description 09/11/2015 Office Visit [facility] Jayson Lombardo t disorder Clinic Roque Echeverria MD with anxious mood [id number] [facility] (Primary Dx) [place] [address] Social History Tobacco Use Types Packs/Day Years Used Date Smoking Tobacco: Never Smokeless Tobacco: Never Alcohol Use Standard Drinks/Week Comments Yes 0 (1 standard drink = 0.6 oz pure alcoho l) Sex Assigned at Date Recorded Female 05/29/2020 7:33 PM CDT documented as of this encounter Last Filed Vital Signs Vital Sign Reading Time Taken Comments Blood Pressure 104/64 09/11/2015 7:10 AM CDT Pulse 60 09/11/2015 7:10 AM CDT Temperature 37.1 ??C (98.7 ??F) 09/11/2015 7:10 AM CDT Respiratory Rate 16 09/11/2015 7:10 AM CDT Oxygen Saturation 99% 09/11/2015 7:10 AM CDT Inhaled Oxygen Concentration - - Weight 49.6 kg (109 lb 4.8 oz) 09/11/2015 7:10 AM CDT Height 171.5 cm (5' 7.5) 09/11/2015 7:10 AM CDT Body Mass Index 16.87 09/11/2015 7:10 AM CDT documented in this encounter Progress Notes Jayson Lombardo MD - 09/11/2015 7:09 AM CDT SUBJECTIVE: Nataly Simon is a 24 year old female who presents to clinic today for the following health issues: Medication Followup of Lexapro ?? Taking Medication as prescribed: yes ?? Side Effects: None ?? Medication Helping Symptoms: NO Problem list and histories reviewed & adjusted, as indicated. Additional history: Patient with worsening anxiety over the past couple of months. Previously had improvement on [id number] mg. No significant side effects. Has stressors with upcoming wedding and work stressors. Mild change in depressive symptoms without significant depression or suicidal ideation. ROS: PSYCHIATRIC: As noted above OBJECTIVE: BP 104/64 mmHg Pulse 60 Temp(Src) 98.7 ??F (37.1 ??C) (Oral) Resp 16 Ht 5' 7.5 (1.715 m) Wt 109 lb 4.8 oz (49.578 kg) BMI 16.86 kg/m2 SpO2 99% LMP 08/16/2015 ? No Body mass index is 16.86 kg/(m^2). GENERAL APPEARANCE: healthy, alert and no distress PSYCH: mentation appears normal and affect normal/bright ASSESSMENT/PLAN: 1. Adjustment disorder with anxious mood Recommend increase Lexapro to 20 mg daily. Recommend follow up in 1 month or if doing well send docTrackrt message. Recommend continue medications for minimum 3-6 months and then consider decreased back to 10 mg if stable with decreasing stressors. - escitalopram (LEXAPRO) 20 MG tablet; Take 1 tablet (20 mg) by mouth daily Dispense: 30 tablet; Refill: 1 Jayson Lombardo MD [facility] documented in this encounter Nursing Notes Dary Bautista CMA - 09/11/2015 7:11 AM CDT Chief Complaint Patient presents with ??? Recheck Medication Initial BP 104/64 mmHg Pulse 60 Temp(Src) 98.7 ??F (37.1 ??C) (Oral) Resp 16 Ht 5' 7.5 (1.715 m) Wt 109 lb 4.8 oz (49.578 kg) BMI 16.86 kg/m2 SpO2 99% LMP 08/16/2015 ? No Estimated body mass index is 16.86 kg/(m^2) as calculated from the following: Height as of this encounter: 5' 7.5 (1.715 m). Weight as of this encounter: 109 lb 4.8 oz (49.578 kg). Dary Bautista CMA Health Maintenance- Reviewed. documented in this encounter Plan of Treatment Not on filedocumented as of this encounter Visit Diagnoses Diagnosis Adjustment disorder with anxious mood - Primary Adjustment disorder with anxiety documented in this encounter Additional Health Concerns Assessment Noted Time PHQ-9 Depression Total Score: 9 09/12/2015 7:13 AM CDT documented as of this encounter Care Teams Summer Camp Counselor Relationship Specialty Start Date End Date Jayson Lombardo MD PCP - General Family Practice 03/24/13 Jayson Lombardo MD PCP - Assigned PCP 08/12/14 05/17/18 Jayson Lombardo MD Assigned PCP 08/12/14 04/20/20 documented as of this encounter
--- OUTSIDE RECORDS SUMMARY | 2022-01-19 15:21 | XMS_ITS | Encounter Summary ---
:1990 Author Organization [facility] Address [address] [place] [address] Care Team Providers Name Role Phone Jayson Lombardo MD Primary Care Provider Unavailable Jayson Lombardo MD Unavailable Unavailable Reason for Visit [facility] (Routine) - Closed Specialty Diagnoses / Procedures Referred By Contact Refer red To Contact Physical Therapist / Diagnoses L sciatica/ Irina Ibrahim @ [facility] in [place]/ [facility] Self, Referred, Gurvinder Cross, PT Physical Therapy Procedures SPINE INITIAL [id number] [place], [place] [address] Phone: Fax: Referral ID Status Reason Start Date Expiration Date Visits Requ ested Visits Authorized [id number] Closed 01/31/2020 03/14/2020 40 40 Encounter Details Date Type Department Care Team Description 01/31/2020 Therapy Visit [facility] Gurvinder Gan, PT Chronic left-sided Rehabilitation Services [id number] low back pain with [place] [address] left-sided sciatica [address] [place] [phone] Social History Tobacco Use Types Packs/Day Years Used Date Smoking Tobacco: Never Smokeless Tobacco: Never Alcohol Use Standard Drinks/Week Comments Yes 0 (1 standard drink = 0.6 oz pure alcoho l) Sex Assigned at Date Recorded Female 05/29/2020 7:33 PM CDT COVID-19 Exposure Response Date Recorded In the last month, have you been in contact with No / Unsure 01/31/2020 10:59 AM REGISTERED PHARMACY TECHNICIAN someone who was 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 documented as of this encounter Progress Notes MitulGurvinder, PT - 01/31/2020 11:10 AM CST [facility] Initial Evaluation Subjective: Onset of left lumbar pain radiating into left lower extremity. Pt has a son who was born in March 2019 and is doing a lot of lifting and carrying which aggravates the back. Previous treatment has consisted of chiropractic adjustments and over the count anti-inflammatory medication. The history is provided by the patient. No speech language pathologist assistant was used. Therapist Generated HPI Evaluation Type of problem: Lumbar. This is a chronic condition. Condition occurred with: Bending and repetition/overuse. Where condition occurred: at home. Patient reports pain: Lumbar spine left. Pain is described as burning and sharp and is constant. Pain radiates to: Gluteals left, thigh left, knee left, lower leg left and foot left. Pain is worse in the P.M.. Since onset symptoms are gradually worsening. Associated symptoms: Tingling, loss of motion/stiffness and loss of strength. Symptoms are exacerbated by lifting, standing and carrying (changing positions in bed) and relieved by NSAID's, rest and ice. Imaging testing: none. Previous treatment includes chiropractic. There was moderate improvement following previous treatment. 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 Barriers include: None as reported by patient. Objective: Standing Alignment: Lumbar deviations alignment: increased lumbar lordosis. Pelvis deviations alignment: posterior rotation left inominate. Flexibility/Screens: Lower Extremity: Decreased left lower extremity flexibility:Hamstrings Lumbar/SI Evaluation ROM: AROM Lumbar: Flexion: Moderate loss with pain Ext: Maximum loss with pain Side Bend: Left: Minimal loss Right: Minimal loss Rotation: Left: Right: Side Shreve: Left: Right: Strength: weak lower abdominals and pelvic stabilizers Lumbar Myotomes: normal Lumbar DTR's: normal Lumbar Dermtomes: normal Neural Tension/Mobility: Left side: SLR w/DF positive. Left side:SLR negative. Right side: SLR w/DF or SLR negative. Lumbar Palpation: Palpation (lumbar): point tenderness left sacral sulcus. SI joint/Sacrum: Positive Cassie's left side General ROS Assessment/Plan: Patient is a 29 year old female with lumbar complaints. Patient has the following significant findings with corresponding treatment plan. Diagnosis 1: Left lumbar pain radiating into left lower extremity Pain - hot/cold therapy, manual therapy, self management, education and home program Decreased ROM/flexibility - manual therapy, therapeutic exercise, therapeutic activity and home program Decreased strength - therapeutic exercise, therapeutic activities and home program Therapy Evaluation Codes: 1) History comprised of: Personal factors that impact the plan of care: None. Comorbidity factors that impact the plan of care are: Migraines/headaches. Medications impacting care: Anti-inflammatory. 2) Examination of Body Systems comprised of: Body structures and functions that impact the plan of care: Lumbar spine and Sacral illiac joint. Activity limitations that impact the plan of care are: Bending, Dressing, Lifting, Standing and Walking. 3) Clinical presentation characteristics are: Stable/Uncomplicated. 4) Decision-Making Low complexity using standardized patient assessment instrument and/or measureable assessment of functional outcome. Cumulative Therapy Evaluation is: Low complexity. Previous and current functional limitations: (See Goal Flow Sheet for this information) Short term and detention goals: (See Goal Flow Sheet for this information) Communication ability: Patient appears to be able to clearly communicate and understand verbal and written communication and follow directions correctly. Treatment Explanation - The following has been discussed with the patient: RX ordered/plan of care Anticipated outcomes Possible risks and side effects This patient would benefit from PT intervention to resume normal activities. Rehab potential is good. Frequency: 1 X week, once daily Duration: for 6 weeks Discharge Plan: Achieve all LTG. Independent in home treatment program. Reach maximal therapeutic benefit. Please refer to the daily flowsheet for treatment today, total treatment time and time spent performing 1:1 timed codes. STERED PHARMACY TECHNICIAN Lavonne Mcpherson PTA - 01/31/2020 11:10 AM CST [facility] Initial Evaluation Subjective: Patient Health History Pertinent medical history includes: migraines/headaches. Surgeries include: Other (Lung wedge resection (left,zoll)). 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 Objective: System Physical Exam General ROS Assessment/Plan: STERED PHARMACY TECHNICIAN documented in this encounter Plan of Treatment Not on filedocumented as of this encounter Procedures Procedure Name Priority Date/Time Associated Diagnosis Comme nts TX THERAPEUTIC Routine 01/31/2020 12:17 PM Chronic left-sided low EXERCISES. EA 15 MIN REGISTERED PHARMACY TECHNICIAN back pain with left-sided sciatica documented in this encounter Visit Diagnoses Diagnosis Chronic left-sided low back pain with le ft-sided sciatica documented in this encounter Additional Health Concerns Assessment Noted Time PHQ-9 Depression Total Score: 9 09/12/2015 7:13 AM CDT documented as of this encounter Care Teams Button Breaker Relationship Specialty Start Date End Date Jayson Lombardo MD PCP - General Family Practice 03/24/13 Jayson Lombardo MD Assigned PCP 08/12/14 04/20/20 documented as of this encounter
--- OUTSIDE RECORDS SUMMARY | 2022-01-19 15:21 | XMS_ITS | Encounter Summary ---
:1990 Author Organization [facility] Address [address] [place] [id number] Care Team Providers Name Role Phone Jayson Lombardo MD Primary Care Provider Unavailable Jayson Lombardo MD Unavailable Unavailable Jayson Lombardo MD Unavailable Unavailable Reason for Visit Reason Comments Recheck Medication Encounter Details Date Type Department Care Team Description 05/27/2016 Office Visit [facility] Jayson Lombardo t disorder Clinic Roque Echeverria MD with anxious mood [id number] [facility] (Primary Dx) [place] [phone] Social History Tobacco Use Types Packs/Day Years Used Date Smoking Tobacco: Never Smokeless Tobacco: Never Alcohol Use Standard Drinks/Week Comments Yes 0 (1 standard drink = 0.6 oz pure alcoho l) Sex Assigned at Date Recorded Female 05/29/2020 7:33 PM CDT documented as of this encounter Last Filed Vital Signs Vital Sign Reading Time Taken Comments Blood Pressure 100/60 05/27/2016 7:07 AM CDT Pulse 61 05/27/2016 7:07 AM CDT Temperature 36.6 ??C (97.8 ??F) 05/27/2016 7:07 AM CDT Respiratory Rate 12 05/27/2016 7:07 AM CDT Oxygen Saturation 99% 05/27/2016 7:07 AM CDT Inhaled Oxygen Concentration - - Weight 53.3 kg (117 lb 8 oz) 05/27/2016 7:07 AM CDT Height 171.5 cm (5' 7.5) 05/27/2016 7:07 AM CDT Body Mass Index 18.13 05/27/2016 7:07 AM CDT documented in this encounter Progress Notes Jayson Lombardo MD - 05/27/2016 7:00 AM CDT SUBJECTIVE: Nataly Jerome is a 25 year old female who presents to clinic today for the following health issues: Medication Followup of escitalopram ?? Taking Medication as prescribed: yes ?? Side Effects: Sexual concerns and tired ?? Medication Helping Symptoms: yes Problem list and histories reviewed & adjusted, as indicated. Additional history: Improvements in mood. Patient would like to stop Lexapro especially with sexual side effects. Reviewed and updated as needed this visit by clinical staff Allergies ROS: PSYCHIATRIC: NEGATIVE for changes in mood or affect OBJECTIVE: BP 100/60 (BP Location: Right arm, Patient Position: Chair, Cuff Size: Adult Regular) Pulse 61 Temp 97.8 ??F (36.6 ??C) (Oral) Resp 12 Ht 5' 7.5 (1.715 m) Wt 117 lb 8 oz (53.3 kg) LMP 05/25/2016 (Exact Date) SpO2 99% ? No BMI 18.13 kg/m2 Body mass index is 18.13 kg/(m^2). GENERAL APPEARANCE: healthy, alert and no distress PSYCH: mentation appears normal and affect normal/bright ASSESSMENT/PLAN: 1. Adjustment disorder with anxious mood - escitalopram (LEXAPRO) 10 MG tablet; Take 1 tab daily for 2 weeks, then take 1/2 tablet for 2 weeks then stop Dispense: 30 tablet; Refill: 0 Jayson Lombardo MD [facility] documented in this encounter Nursing Notes Stacey Park - 05/27/2016 7:00 AM CDT Chief Complaint Patient presents with ??? Recheck Medication Initial BP 100/60 (BP Location: Right arm, Patient Position: Chair, Cuff Size: Adult Regular) Pulse 61 Temp 97.8 ??F (36.6 ??C) (Oral) Resp 12 Ht 5' 7.5 (1.715 m) Wt 117 lb 8 oz (53.3 kg) LMP 05/25/2016 (Exact Date) SpO2 99% ? No BMI 18.13 kg/m2 Estimated body mass index is 18.13 kg/(m^2) as calculated from the following: Height as of this encounter: 5' 7.5 (1.715 m). Weight as of this encounter: 117 lb 8 oz (53.3 kg). Medication Reconciliation: BULMARO Benavidez documented in this encounter Plan of Treatment Not on filedocumented as of this encounter Visit Diagnoses Diagnosis Adjustment disorder with anxious mood - Primary Adjustment disorder with anxiety documented in this encounter Additional Health Concerns Assessment Noted Time PHQ-9 Depression Total Score: 9 09/12/2015 7:13 AM CDT documented as of this encounter Care Teams Nitro Man Relationship Specialty Start Date End Date Jayson Lombardo MD PCP - General Family Practice 03/24/13 Jayson Lombardo MD PCP - Assigned PCP 08/12/14 05/17/18 Jayson Lombardo MD Assigned PCP 08/12/14 04/20/20 documented as of this encounter
--- OUTSIDE RECORDS SUMMARY | 2022-01-19 15:21 | XMS_ITS | Encounter Summary ---
:1990 Author Organization [facility] Address [address] [place] [address] Care Team Providers Name Role Phone Jayson Lombardo MD Primary Care Provider Unavailable Jayson Lombardo MD Unavailable Unavailable Jayson Lombardo MD Unavailable Unavailable Reason for Visit Reason Comments Physical Encounter Details Date Type Department Care Team Description 02/25/2016 Office Visit [facility] Jayson Lombardo Encounter for routine adult health examination without abnormal findings (Primary Dx); Clinic Roque Echeverria MD Adjustment disorder with anx ious mood [address] [place] [phone] Social History Tobacco Use Types Packs/Day Years Used Date Smoking Tobacco: Never Smokeless Tobacco: Never Alcohol Use Standard Drinks/Week Comments Yes 0 (1 standard drink = 0.6 oz pure alcoho l) Sex Assigned at Date Recorded Female 05/29/2020 7:33 PM CDT documented as of this encounter Last Filed Vital Signs Vital Sign Reading Time Taken Comments Blood Pressure 110/64 02/25/2016 7:09 AM CRYSTAL INSPECTOR Pulse 74 02/25/2016 7:09 AM CRYSTAL INSPECTOR Temperature 36.9 ??C (98.4 ??F) 02/25/2016 7:09 AM CRYSTAL INSPECTOR Respiratory Rate - - Oxygen Saturation - - Inhaled Oxygen Concentration - - Weight 53 kg (116 lb 14.4 oz) 02/25/2016 7:09 AM CRYSTAL INSPECTOR Height 171.5 cm (5' 7.5) 02/25/2016 7:09 AM CRYSTAL INSPECTOR Body Mass Index 18.04 02/25/2016 7:09 AM CRYSTAL INSPECTOR documented in this encounter Patient Instructions Patient InstructionsDary Bautista CMA - 02/25/2016 7:09 AM CST Preventive Health Recommendations Female Ages 26 - 39 Yearly exam: See your health care provider every year in order to ??? Review health changes. ??? Discuss preventive care. ??? Review your medicines if you your doctor has prescribed any. Until age 30: Get a Pap test every three years (more often if you have had an abnormal result). After age 30: Talk to your doctor about whether you should have a Pap test every 3 years or have a Pap test with HPV screening every 5 years. You do not need a Pap test if your uterus was removed (hysterectomy) and you have not had cancer. You should be tested each year for STDs (sexually transmitted diseases), if you're at risk. Talk to your provider about how often to have your cholesterol checked. If you are at risk for diabetes, you should have a diabetes test (fasting glucose). Shots: Get a flu shot each year. Get a tetanus shot every 10 years. Nutrition: ??? Eat at least 5 servings of fruits and vegetables each day. ??? Eat whole-grain bread, whole-wheat pasta and brown rice instead of white grains and rice. ??? Talk to your provider about Calcium and Vitamin D. Lifestyle ??? Exercise at least 150 minutes a week (30 minutes a day, 5 days of the week). This will help you control your weight and prevent disease. ??? Limit alcohol to one drink per day. ??? No smoking. ?? Wear sunscreen to prevent skin cancer. ?? See your dentist every six months for an exam and cleaning. ?? TAL INSPECTOR documented in this encounter Progress Notes Jayson Lombardo MD - 02/25/2016 7:09 AM CST SUBJECTIVE: CC: Nataly Jerome is an 25 year old woman who presents for preventive health visit. Healthy Habits: ?? Do you get at least three servings of calcium containing foods daily (dairy, green leafy vegetables, etc.)? yes ?? Amount of exercise or daily activities, outside of work: 2 day(s) per week ?? Problems taking medications regularly No ?? Medication side effects: No ?? Have you had an eye exam in the past two years? yes ?? Do you see a dentist twice per year? yes Do you have sleep apnea, excessive snoring or daytime drowsiness?no Today's PHQ-2 Score: PHQ-2 (??1999 Pfizer) 04/27/2015 12/12/2014 Q1: Little interest or pleasure in doing things 0 2 Q2: Feeling down, depressed or hopeless 0 2 PHQ-2 Score 0 4 Abuse: Current or Past(Physical, Sexual or Emotional)- No Do you feel safe in your environment - Yes Social History Substance Use Topics ??? Smoking status: Never Smoker ??? Smokeless tobacco: Never Used ??? Alcohol Use: 0.0 - 0.5 oz/week 0-1 Standard drinks or equivalent per week The patient does not drink >3 drinks per day nor >7 drinks per week. Recent Labs Lab Test 02/25/15 0736 03/09/14 0916 08/19/10 0849 CHOL 151 161 148 HDL 69 73 61 LDL 70 74 73 TRIG 58 69 73 CHOLHDLRATIO -- 2.2 2.4 CODL 82 -- -- Reviewed orders with patient. Reviewed health maintenance and updated orders accordingly - Yes History of abnormal Pap smear: NO - age 21-29 PAP every 3 years recommended All Histories reviewed and updated in [facility]. Past Medical History Diagnosis Date ??? Mitral valve prolapse ??? Pneumothorax on left Past Surgical History Procedure Laterality Date ??? Hc tooth extraction w/forcep 2008 ??? Thoracoscopic wedge resection lung 12/20/2010 Procedure:THORACOSCOPIC WEDGE RESECTION LUNG; Left Video Assisted Thoracoscopy, Apical Blebectomy ;Surgeon:JUSTA NGUYỄN; Location:[facility] OR ROS: C: NEGATIVE for fever, chills, change in weight I: NEGATIVE for worrisome rashes, moles or lesions E: NEGATIVE for vision changes or irritation ENT: NEGATIVE for ear, mouth and throat problems R: NEGATIVE for significant cough or SOB B: NEGATIVE for masses, tenderness or discharge CV: NEGATIVE for chest pain, palpitations or peripheral edema GI: NEGATIVE for nausea, abdominal pain, heartburn, or change in bowel habits : NEGATIVE for unusual urinary or vaginal symptoms. Periods are irregular with nexplanon. M: NEGATIVE for significant arthralgias or myalgia N: NEGATIVE for weakness, dizziness or paresthesias P: NEGATIVE for changes in mood or affect Problem list, Medication list, Allergies, and Medical/Social/Surgical histories reviewed in [facility] andupdated as appropriate. OBJECTIVE: BP 110/64 mmHg Pulse 74 Temp(Src) 98.4 ??F (36.9 ??C) (Oral) Ht 5' 7.5 (1.715 m) Wt 116 lb 14.4 oz (53.025 kg) BMI 18.03 kg/m2 LMP 02/02/2016 ? No EXAM: GENERAL: healthy, alert and no distress EYES: Eyes grossly normal to inspection, PERRL and conjunctivae and sclerae normal HENT: ear canals and TM's normal, nose and mouth without ulcers or lesions NECK: no adenopathy, no asymmetry, masses, or scars and thyroid normal to palpation RESP: lungs clear to auscultation - no rales, rhonchi or wheezes CV: regular rate and rhythm, normal S1 S2, no S3 or S4, no murmur, click or rub, no peripheral edemaand peripheral pulses strong ABDOMEN: soft, nontender, no hepatosplenomegaly, no masses and bowel sounds normal MS: no gross musculoskeletal defects noted, no edema SKIN: no suspicious lesions or rashes NEURO: Normal strength and tone, mentation intact and speech normal PSYCH: mentation appears normal, affect normal/bright ASSESSMENT/PLAN: 1. Encounter for routine adult health examination without abnormal findings 2. Adjustment disorder with anxious mood - escitalopram (LEXAPRO) 20 MG tablet; Take 1 tablet (20 mg) by mouth daily Dispense: 30 tablet; Refill: 5 COUNSELING: Reviewed preventive health counseling, as reflected in patient instructions Special attention given to: Regular exercise Healthy diet/nutrition reports that she has never smoked. She has never used smokeless tobacco. Estimated body mass index is 18.03 kg/(m^2) as calculated from the following: Height as of this encounter: 5' 7.5 (1.715 m). Weight as of this encounter: 116 lb 14.4 oz (53.025 kg). Weight management plan noted, stable and monitoring Counseling Resources: ATP IV Guidelines Pooled Cohorts Equation Calculator Breast Cancer Risk Calculator FRAX Risk Assessment ICSI Preventive Guidelines Dietary Guidelines for Americans, 2009 USDA's MyPlate ASA Prophylaxis Lung CA Screening Jayson Lombardo MD [facility] TAL INSPECTOR documented in this encounter Nursing Notes Dary Bautista CMA - 02/25/2016 7:11 AM CST Chief Complaint Patient presents with ??? Physical Initial BP 110/64 mmHg Pulse 74 Temp(Src) 98.4 ??F (36.9 ??C) (Oral) Ht 5' 7.5 (1.715 m) Wt116 lb 14.4 oz (53.025 kg) BMI 18.03 kg/m2 LMP 02/02/2016 ? No Estimated body mass index is 18.03 kg/(m^2) as calculated from the following: Height as of this encounter: 5' 7.5 (1.715 m). Weight as of this encounter: 116 lb 14.4 oz (53.025 kg). Dary Bautista CMA Health Maintenance- Reviewed. TAL INSPECTOR documented in this encounter Plan of Treatment Not on filedocumented as of this encounter Visit Diagnoses Diagnosis Encounter for routine adult health exami nation without abnormal findings - Primary Adjustment disorder with anxious mood Adjustment disorder with anxiety documented in this encounter Additional Health Concerns Assessment Noted Time PHQ-9 Depression Total Score: 9 09/12/2015 7:13 AM CDT documented as of this encounter Care Teams Forwarder Operator Relationship Specialty Start Date End Date Jayson Lmobardo MD PCP - General Family Practice 03/24/13 Jayson Lombardo MD PCP - Assigned PCP 08/12/14 05/17/18 Jayson Lombardo MD Assigned PCP 08/12/14 04/20/20 documented as of this encounter
--- OUTSIDE RECORDS SUMMARY | 2022-01-19 15:21 | XMS_ITS | Encounter Summary ---
:1990 Author Organization [place] Address [address] [facility] [place] [address] Care Team Providers Name Role Phone Jayson Lombardo MD Primary Care Provider Unavailable Jayson Lombardo MD Unavailable Unavailable Jayson Lombardo MD Unavailable Unavailable Reason for Visit Reason Comments Recheck Medication Encounter Details Date Type Department Care Team Description 01/25/2015 Office Visit [facility] Caridad Nunez Adjust ment disorder Clinic Roque Duque MD with anxious mood [address] [facility] [address] [address]DA [address] (Primary Dx) [place], [place] [phone] [phone] Social History Tobacco Use Types Packs/Day Years Used Date Smoking Tobacco: Never Smokeless Tobacco: Never Alcohol Use Standard Drinks/Week Comments Yes 0 (1 standard drink = 0.6 oz pure alcoho l) Sex Assigned at Date Recorded Female 05/29/2020 7:33 PM CDT documented as of this encounter Last Filed Vital Signs Vital Sign Reading Time Taken Comments Blood Pressure 92/60 01/25/2015 7:50 AM SUPERVISOR [employer] Pulse 59 01/25/2015 7:50 AM [employer] Temperature 36.4 ??C (97.6 ??F) 01/25/2015 7:50 AM [employer] Respiratory Rate - - Oxygen Saturation 99% 01/25/2015 7:50 AM [employer] Inhaled Oxygen Concentration - - Weight 48.1 kg (106 lb) 01/25/2015 7:50 AM [employer] Height 170.2 cm (5' 7) 01/25/2015 7:50 AM [employer] Body Mass Index 16.6 01/25/2015 7:50 AM [employer] documented in this encounter Progress Notes Caridad Nunez MD - 01/25/2015 7:51 AM CST SUBJECTIVE: Nataly Simon is a 24 year old female who presents to clinic today for the following health issues: Depression and Anxiety Follow-Up ?? Status since last visit: Improved on 10 mg Lexapro ?? Other associated symptoms: dry mouth, feels it is minor ?? Complicating factors: ?? Significant life event: No ?? Current substance abuse: None Very happy with Lexapro as current dose. Feels outlook on life has improved. Has not needed clonazepam. PHQ9 - 4 GAD7 - 3 PHQ-9 SCORE 10/20/2014 12/12/2014 Total Score 2 - Total Score - 8 VAGUHN-7 SCORE 10/22/2014 12/12/2014 Total Score 10 - Total Score - 8 PHQ-9 Monegasque PHQ-9 Any Language GAD7 ?? Amount of exercise or physical activity: 4-5 days/week for an average of 15- 30 minutes ?? Problems taking medications regularly: No ?? Medication side effects: maybe dry mouth Problem list and histories reviewed & adjusted, as indicated. Additional history: none Patient Active Problem List Diagnosis ??? IRREGULAR MENSTRUATION ??? MVP (mitral valve prolapse) ??? Spontaneous pneumothorax, LEFT ??? Underweight Past Surgical History Procedure Laterality Date ??? Hc tooth extraction w/forcep 2008 ??? Thoracoscopic wedge resection lung 12/20/2010 Procedure:THORACOSCOPIC WEDGE RESECTION LUNG; Left Video Assisted Thoracoscopy, Apical Blebectomy ;Surgeon:JUSTA NGUYỄN; Location: OR History Substance Use Topics ??? Smoking [...] Paternal Grandmother ??? Prostate Cancer Paternal Grandfather Current Outpatient Prescriptions Medication Sig Dispense Refill ??? escitalopram (LEXAPRO) 10 MG tablet Take 1 tablet (10 mg) by mouth daily 90 tablet 3 ??? rizatriptan (MAXALT) 10 MG tablet Take 1 tablet (10 mg) by mouth at onset of headache for migraine May repeat dose in 2 hours. Do not exceed 30 mg in 24 hours 18 tablet 3 ??? naproxen (NAPROSYN) 500 MG tablet Take 1 tablet (500 mg) by mouth 2 times daily as needed for moderate pain 60 tablet 0 ??? clonazePAM (KLONOPIN) 0.5 MG tablet Take 0.5-1 tablets (0.25-0.5 mg) by mouth 2 times daily as needed for anxiety 20 tablet 0 ??? Norethindrone (JOHN PO) OBJECTIVE: BP 92/60 mmHg Pulse 59 Temp(Src) 97.6 ??F (36.4 ??C) (Oral) Ht 5' 7 (1.702 m) Wt 106 lb (48.081 kg) BMI 16.60 kg/m2 SpO2 99% Body mass index is 16.6 kg/(m^2). GENERAL: healthy, alert and no distress PSYCH: mentation appears normal, affect normal/bright Diagnostic Test Results: none ASSESSMENT/PLAN: 1. Adjustment disorder with anxious mood - escitalopram (LEXAPRO) 10 MG tablet; Take 1 tablet (10 mg) by mouth daily Dispense: 90 tablet; Refill: 3 Follow up around 6 months for re-eval Caridad Nunez MD [facility] [employer] documented in this encounter Nursing Notes Giulia Lazar, INBOUND SALES REPRESENTATIVE - 01/25/2015 7:50 AM CST Chief Complaint Patient presents with ??? Recheck Medication Initial BP 92/60 mmHg Pulse 59 Temp(Src) 97.6 ??F (36.4 ??C) (Oral) Ht 5' 7 (1.702 m) Wt 106 lb (48.081 kg) BMI 16.60 kg/m2 SpO2 99% Estimated body mass index is 16.6 kg/(m^2) as calculated from the following: Height as of this encounter: 5' 7 (1.702 m). Weight as of this encounter: 106 lb (48.081 kg). BP completed using cuff size: justin Lzaar CMA [employer] documented in this encounter Plan of Treatment Not on filedocumented as of this encounter Visit Diagnoses Diagnosis Adjustment disorder with anxious mood - Primary Adjustment disorder with anxiety documented in this encounter Additional Health Concerns Assessment Noted Time PHQ-9 Depression Total Score: 4 01/26/2015 7:25 AM [employer] documented as of this encounter Care Teams Condominium Property Manager Relationship Specialty Start Date End Date Jayson Lombardo MD PCP - General Family Practice 03/24/13 Jayson Lombardo MD PCP - Assigned PCP 08/12/14 05/17/18 Jayson Lombardo MD Assigned PCP 08/12/14 04/20/20 documented as of this encounter
--- OUTSIDE RECORDS SUMMARY | 2022-01-19 15:21 | XMS_ITS | Encounter Summary ---
:1990 Author Organization [place] Address [address] [place] [address] Care Team Providers Name Role Phone Jayson Lombardo MD Primary Care Provider Unavailable Jasyon Lombardo MD Unavailable Unavailable Jayson Lombardo MD Unavailable Unavailable Reason for Visit Reason Onset Date Comments Refill Request 02/17/2016 Encounter Details Date Type Department Care Team Description 02/17/2016 Telephone [facility] Jayson Lombardo Ra, MD Refill Request [facility] [address] [place] [phone] Social History Tobacco Use Types Packs/Day Years Used Date Smoking Tobacco: Never Smokeless Tobacco: Never Alcohol Use Standard Drinks/Week Comments Yes 0 (1 standard drink = 0.6 oz pure alcoho l) Sex Assigned at Date Recorded Female 05/29/2020 7:33 PM CDT documented as of this encounter Miscellaneous Notes Telephone Encounter - Kaylynn Spencer RN - 02/17/2016 8:17 AM CST Call to pt as she did not f/u as advised- Pt was given rX for lexapro in August for only # 30 with 1 refill but states she has been getting refills since that time. Upon review [facility] only [facility] of 10 mg. Pt states she has been going back and forth with the 10-20 mg dosing. SometimesI would take 2 of the 10 mg and sometimes take 1.5 mg of the 10 Pt did schedule yearly PX with PCP for 02/24- she will discuss dosing PCP with provider at [facility]. Fact Checker spoke with Pharm and reported error in refilling RX at 10 mg dose. Per PCP ok for refill of 20 mg until pt seen next week. Pt has had name and address change she will bring ID and new insurance info to [facility]. Kaylynn Spencer RN Escitalpram Last Written Prescription Date: 09/11/15 Last Fill Quantity: 30 # refills: 1 Last Office Visit with [facility], P or [facility] prescribing provider: 09/11/15 Next 5 appointments (look out 90 days) Feb 25, 2016 7:00 AM PHYSICAL with Jayson Lombardo MD [facility] [id number] [place] [id number] Last PHQ-9 score on record= PHQ-9 SCORE 09/11/2015 Total Score - Total Score 9 AST 26 03/24/2013 ALT 50 03/24/2013 R BANDER documented in this encounter Plan of Treatment Not on filedocumented as of this encounter Visit Diagnoses Diagnosis Adjustment disorder with anxious mood - Primary Adjustment disorder with anxiety documented in this encounter Additional Health Concerns Assessment Noted Time PHQ-9 Depression Total Score: 9 09/12/2015 7:13 AM CDT documented as of this encounter Care Teams Railroad Brake Operator Relationship Specialty Start Date End Date Jayson Lombardo MD PCP - General Family Practice 03/24/13 Jayson Lombardo MD PCP - Assigned PCP 08/12/14 05/17/18 Jayson Lombardo MD Assigned PCP 08/12/14 04/20/20 documented as of this encounter
--- OUTSIDE RECORDS SUMMARY | 2022-01-19 15:21 | XMS_ITS | Encounter Summary ---
:1990 Author Organization [place] Address [address] [place] [id number] Care Team Providers Name Role Phone Jayson Lombardo MD Primary Care Provider Unavailable Reason for Visit Reason Comments Physical Encounter Details Date Type Department Care Team Description 03/09/2014 Office Visit [facility] Jayson Lombardo Routine g eneral medical examination at a health care facility (Primary Dx); Clinic Roque Echeverria MD Abnormal uterine bleeding; [address] [facility] CARDIOVASCULAR SCREENING; LD L GOAL LESS THAN [address] [place] [phone] Social History Tobacco Use Types Packs/Day Years Used Date Smoking Tobacco: Never Smokeless Tobacco: Never Alcohol Use Standard Drinks/Week Comments Yes 0 (1 standard drink = 0.6 oz pure alcoho l) Sex Assigned at Date Recorded Female 05/29/2020 7:33 PM CDT documented as of this encounter Last Filed Vital Signs Vital Sign Reading Time Taken Comments Blood Pressure 104/62 03/09/2014 8:55 AM ANGLE BENDER Pulse 71 03/09/2014 8:55 AM ANGLE BENDER Temperature 36.6 ??C (97.9 ??F) 03/09/2014 8:55 AM ANGLE BENDER Respiratory Rate - - Oxygen Saturation - - Inhaled Oxygen Concentration - - Weight 48.9 kg (107 lb 14.4 oz) 03/09/2014 8:55 AM ANGLE BENDER Height 170.2 cm (5' 7) 03/09/2014 8:55 AM ANGLE BENDER Body Mass Index 16.9 03/09/2014 8:55 AM ANGLE BENDER documented in this encounter Patient Instructions Patient InstructionsDary Stokes CMA - 03/09/2014 8:56 AM CST Preventive Health Recommendations Female Ages 18 to 25 Yearly exam: ??? See your health care provider every year in order to o Review health changes. o Discuss preventive care. o Review your medicines if your doctor has prescribed any. ??? You should be tested each year for STDs (sexually transmitted diseases). ??? After age 20, talk to your provider about how often you should have cholesterol testing. ??? Starting at age 21, get a Pap test every three years. If you have an abnormal result, your doctor may have you test more often. ??? If you are at risk for diabetes, you should have a diabetes test (fasting glucose). Shots: ??? Get a flu shot each year. ??? Get a tetanus shot every 10 years. ??? Consider getting the shot (vaccine) that prevents cervical cancer (Gardasil). Nutrition: ??? Eat at least 5 servings of fruits and vegetables each day. ??? Eat whole-grain bread, whole-wheat pasta and brown rice instead of white grains and rice. ??? For bone health: Eat calcium-rich foods or take calcium pills (500 to 600 mg) twice a day with food. Also take vitamin D (1000 IUs) each day. Lifestyle ??? Exercise at least 150 minutes a week each week (30 minutes a day, 5 days a week). This will helpyou control your weight and prevent disease. ??? Limit alcohol to one drink per day. ??? No smoking. ??? Wear sunscreen to prevent skin cancer. ??? See your dentist every six months for an exam and cleaning. E BENDER documented in this encounter Progress Notes Jayson Lombardo MD - 03/09/2014 8:56 AM CST SUBJECTIVE: CC: Nataly Simon is an 23 year old woman who presents for preventive health visit. Healthy Habits: ?? Do you get at least three servings of calcium containing foods daily (dairy, green leafy vegetables, etc.)? yes ?? Amount of exercise or daily activities, outside of work: 1 day(s) per week ?? Problems taking medications regularly No ?? Medication side effects: No ?? Have you had an eye exam in the past two years? yes ?? Do you see a dentist twice per year? yes ?? Do you have sleep apnea, excessive snoring or daytime drowsiness?no Other concerns to address: Patient having issues with irregular menses. This has been an issue for her for quite some time in the past and was started on oral contraceptives. Was on control pills for many years. 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 Today's PHQ-2 Score: 0 Abuse: Current or Past(Physical, Sexual or Emotional)- No Do you feel safe in your environment - Yes History Substance Use Topics ??? Smoking status: Never Smoker ??? Smokeless tobacco: Never Used ??? Alcohol Use: 0 - .5 oz/week 0-1 drink(s) per week The patient does not drink >3 drinks per day nor >7 drinks per week. Recent Labs Lab Test 08/19/10 0849 CHOL 148 HDL 61 LDL 73 TRIG 73 CHOLHDLRATIO 2.4 Reviewed orders with patient. Reviewed health maintenance and updated orders accordingly - Yes History of abnormal Pap smear: NO - age 21-29 PAP every 3 years recommended - patient has not been sexual active and declines cervical cancer screening today All Histories reviewed and updated in [facility]. Past Medical History Diagnosis Date ??? Mitral [...] pain, heartburn, or change in bowel habits female: irregular menses with light bleeding and spotting for over 3 weeks in January M: NEGATIVE for significant arthralgias or myalgia N: NEGATIVE for weakness, dizziness or paresthesias P: NEGATIVE for changes in mood or affect Problem list, Medication list, Allergies, and Medical/Social/Surgical histories reviewed in [facility] andupdated as appropriate. OBJECTIVE: BP 104/62 Pulse 71 Temp(Src) 97.9 ??F (36.6 ??C) (Oral) Ht 5' 7 (1.702 m) Wt 107 lb 14.4 oz(48.943 kg) BMI 16.90 kg/m2 ? No GENERAL APPEARANCE: healthy, alert and no distress EYES: Eyes grossly normal to inspection, PERRL and conjunctivae and sclerae normal HENT: ear canals and TM's normal, nose and mouth without ulcers or lesions, oropharynx clear and oral mucous membranes moist NECK: no adenopathy, no asymmetry, masses, or scars and thyroid normal to palpation RESP: lungs clear to auscultation - no rales, rhonchi or wheezes BREAST: declined CV: regular rates and rhythm, normal S1 S2, no S3 or S4, no murmur, click or rub, no peripheral edema and peripheral pulses strong ABDOMEN: soft, nontender, no hepatosplenomegaly, no masses and bowel sounds normal (female): declined per patient MS: no musculoskeletal defects are noted and gait is age appropriate without ataxia SKIN: no suspicious lesions or rashes NEURO: Normal strength and tone, sensory exam grossly normal, mentation intact and speech normal PSYCH: mentation appears normal and affect normal/bright ASSESSMENT/PLAN: 1. Routine general medical examination at a health care facility - Lipid panel reflex to direct LDL - Glucose 2. Abnormal uterine bleeding Discussed consider laboratory workup as well as pelvic exam but patient declines today and would like to do this with NEUROSCIENCE SPECIALIST provider as she prefers female provider for this issue. 3. CARDIOVASCULAR SCREENING; LDL GOAL LESS THAN 160 - Lipid panel reflex to direct LDL regular exercise healthy diet/nutrition reports that she has never smoked. She has never used smokeless tobacco. Estimated body mass index is 16.9 kg/(m^2) as calculated from the following: Height as of this encounter: 5' 7 (1.702 m). Weight as of this encounter: 107 lb 14.4 oz (48.943 kg). Weight management plan noted, stable and monitoring Counseling Resources: ATP IV Guidelines Pooled Cohorts Equation Calculator Breast Cancer Risk Calculator FRAX Risk Assessment ICSI Preventive Guidelines Dietary Guidelines for Americans, 2010 [employer] My[employer] Jayson Lombardo MD [facility] E BENDER documented in this encounter Nursing Notes Dary Stokes CMA - 03/09/2014 8:56 AM CST Chief Complaint Patient presents with ??? Physical Initial Temp(Src) 97.9 ??F (36.6 ??C) (Oral) Ht 5' 7 (1.702 m) Wt 107 lb 14.4 oz (48.943 kg) BMI 16.90 kg/m2 ? No Estimated body mass index is 16.9 kg/(m^2) as calculated from thefollowing: Height as of this encounter: 5' 7 (1.702 m). Weight as of this encounter: 107 lb 14.4 oz (48.943 kg). BP completed using cuff size: regular right arm. Dary Stokes CMA E BENDER documented in this encounter Plan of Treatment Not on filedocumented as of this encounter Procedures Procedure Name Priority Date/Time Associated Diagnosis Comme nts LIPID REFLEX TO Routine 03/09/2014 9:16 AM Routine General Res ults for this DIRECT LDL PANEL ANGLE BENDER Medical Examination proc edure are in [facility] the results Facility section. CARDIOVASCULAR SCREENING; LDL GOAL LESS THAN 160 GLUCOSE Routine 03/09/2014 9:16 AM Routine General Result s for this ANGLE BENDER Medical Examination procedur e are in [facility] the results Facility section. documented in this encounter Results Glucose (03/09/2014 9:16 AM ANGLE BENDER) athologist Signature Glucose 84 70 - 99 [facility] mg/dL LAB Comment: Effective 10/11/2013, the reference range for this assay has changed to reflect new instrumentation/methodology. Specimen Anatomical Collection Method Collection Time Receive d Time (Source) Location / / Volume Laterality Blood specimen 03/09/2014 9:16 AM 014 9:21 (specimen) ANGLE BENDER AM ANGLE BENDER Jayson Lombardo MD LAB - BLOOD ORDERABLES Performing Organization Address [facility] Code Phon e Number [address] [address] [facility] Lipid panel reflex to direct LDL (03/09/2014 9:16 AM ANGLE BENDER) athologist Signature Cholesterol 161 <200 mg/dL [facility] LAB Comment: LDL Cholesterol is the primary guide to therapy. The NCEP recommends further evaluation of: patients with cholesterol greater than 200 mg/dL if additional risk facto rs are present, cholesterol greater than 240 mg/dL, triglycerides greater than 1 50 mg/dL, or HDL less than 40 mg/dL. Triglycerides 69 0 - 150 mg/dL [facility] HDL Cholesterol 73 >50 mg/dL [facility] LDL Cholesterol Calculated 74 0 - 129 mg/dL [facility] Comment: LDL Cholesterol is the primary guide to therapy: LDL-cholesterol goal in high risk patients is <100 mg/dL and in very high risk patients is <70 mg/dL. VLDL-Cholesterol 14 0 - 30 mg/dL [facility] Cholesterol/HDL Ratio 2.2 0.0 - 5.0 [facility] Specimen Anatomical Collection Method Collection Time Receive d Time (Source) Location / / Volume Laterality Blood specimen 03/09/2014 9:16 AM 014 9:21 (specimen) ANGLE BENDER AM ANGLE BENDER Jayson Lombardo MD LAB - BLOOD ORDERABLES Performing Organization Address City/[facility]/ZIP Code Phon e Number [address] [address] [facility] documented in this encounter Visit Diagnoses Diagnosis Routine general medical examination at a health care facility - Primary Abnormal uterine bleeding Unspecified disorder of menstruation and other abnormal bleeding from female genital tract CARDIOVASCULAR SCREENING; LDL GOAL LESS THAN 160 documented in this encounter Care Teams Barn Boss Relationship Specialty Start Date End Date Jayson Lombardo MD PCP - General Family Practice 03/24/13 documented as of this encounter
--- OUTSIDE RECORDS SUMMARY | 2022-01-19 15:21 | XMS_ITS | Encounter Summary ---
:1990 Author Organization [place] [facility] Address [address] [place] [address] Care Team Providers Name Role Phone Jayson Lombardo MD Primary Care Provider Unavailable Jayson Lombardo MD Unavailable Unavailable Jayson Lombardo MD Unavailable Unavailable Reason for Visit Reason Onset Date Comments Forms 06/08/2016 [facility] rega ing Physical Examination Report Encounter Details Date Type Department Care Team Description 06/08/2016 Telephone [facility] Jayson Lombardo, Form s ([facility] [place] [facility] regarding [facility] [address] [facility] [place] [address] Social History Tobacco Use Types Packs/Day Years Used Date Smoking Tobacco: Never Smokeless Tobacco: Never Alcohol Use Standard Drinks/Week Comments Yes 0 (1 standard drink = 0.6 oz pure alcoho l) Sex Assigned at Date Recorded Female 05/29/2020 7:33 PM CDT documented as of this encounter Miscellaneous Notes Telephone Encounter - Mel Ruggiero - 06/08/2016 10:01 AM CDT Received form from patient regarding [employer]- Physical Examination Report. Form completed byDr. Lombardo and signed. Mailed the form to [employer], sent a copy to cece and Aretha stone. Mel Ruggiero Landing Scaler documented in this encounter Plan of Treatment Not on filedocumented as of this encounter Visit Diagnoses Not on filedocumented in this encounter Additional Health Concerns Assessment Noted Time PHQ-9 Depression Total Score: 9 09/12/2015 7:13 AM CDT documented as of this encounter Care Teams Supervisor Drying And Softening Relationship Specialty Start Date End Date Jayson Lombardo MD PCP - General Family Practice 03/24/13 Jayson Lombardo MD PCP - Assigned PCP 08/12/14 05/17/18 Jayson Lombardo MD Assigned PCP 08/12/14 04/20/20 documented as of this encounter
--- OUTSIDE RECORDS SUMMARY | 2022-01-19 15:21 | XMS_ITS | Encounter Summary ---
:1990 Author Organization [place] Address [address] [place] [address] Care Team Providers Name Role Phone Jayson Lombardo MD Primary Care Provider Unavailable Jayson Lombardo MD Unavailable Unavailable Jayson Lombardo MD Unavailable Unavailable Reason for Visit Reason Comments Physical Blood Draw IS fasting Encounter Details Date Type Department Care Team Description 02/25/2015 Office Visit [facility] Jayson Lombardo Encounter for routine adult health examination without abnormal findings (Primary Dx); Clinic Perdue Hill MD [facility], left [address] [place] [address] Social History Tobacco Use Types Packs/Day Years Used Date Smoking Tobacco: Never Smokeless Tobacco: Never Alcohol Use Standard Drinks/Week Comments Yes 0 (1 standard drink = 0.6 oz pure alcoho l) Sex Assigned at Date Recorded Female 05/29/2020 7:33 PM CDT documented as of this encounter Last Filed Vital Signs Vital Sign Reading Time Taken Comments Blood Pressure 94/64 02/25/2015 7:08 AM RIVER TRANSPORTATION WORKER Pulse 68 02/25/2015 7:08 AM RIVER TRANSPORTATION WORKER Temperature 36.9 ??C (98.4 ??F) 02/25/2015 7:08 AM RIVER TRANSPORTATION WORKER Respiratory Rate - - Oxygen Saturation 99% 02/25/2015 7:08 AM RIVER TRANSPORTATION WORKER Inhaled Oxygen Concentration - - Weight 47.2 kg (104 lb) 02/25/2015 7:08 AM RIVER TRANSPORTATION WORKER Height 171.5 cm (5' 7.5) 02/25/2015 7:08 AM RIVER TRANSPORTATION WORKER Body Mass Index 16.05 02/25/2015 7:08 AM RIVER TRANSPORTATION WORKER documented in this encounter Patient Instructions Patient InstructionsEduar Jeff, SHOULDER BONER - 02/25/2015 7:09 AM CST Images from the original note were not included. Preventive Health Recommendations Female Ages 18 to [...] every six months for an exam and cleaning.. Stye What is a stye? A stye is a tiny bump that looks like a pimple at the edge of the eyelid. It is a nuisance and can be painful, but it is rarely a serious problem. How does it occur? A stye happens when bacteria infect one of the tiny glands at the base of the eyelid hairs. The gland then becomes inflamed. What are the symptoms? The symptoms are swelling and redness in the area of the stye. Often a tiny pimple is present. The infection usually is painful only if it is touched. Sometimes the infection drains and the eyelid returns to normal without treatment. Styes do not affect vision unless the swelling blocks vision. How is it diagnosed? Your healthcare provider will examine your eyelid. How is it treated? Put a warm, moist washcloth on your eyes for 5 minutes 3 to 4 times a day for several days and use agentle massage. This helps your body fight the infection and may speed up drainage of the stye. The cloths you use should be clean. Your healthcare provider may also prescribe antibiotic drops or ointment. Sometimes a stye needs to be opened and drained by your healthcare provider for quick healing. Neverattempt to open the stye yourself. Serious infection could spread into areas behind and around your eye. If you have several styes, or if styes come back, your provider may want you to clean your eyelids regularly, following these steps: Moisten a washcloth with warm water and hold it over both eyes for several minutes with a gentle massage. This helps to soften any deposits on the eyelids. Add a few drops of baby shampoo to a cup of water. Moisten a cotton swab with this mixture. Using the swab, clean all the deposits from the edges of your eyelids and eyelashes. Use a new swab for each eye. Do not let the swab touch your eyeball. How long will the symptoms last? Usually a stye clears up within a week. If you have a stye that lasts longer than this, see your healthcare provider. How can I help prevent styes? Keeping your eyelids and eyelashes clean can help. Some people have eyelid glands that are prone to become blocked and infected. If this is the case, it may be a good idea to regularly use warm washcloths on them. Reviewed for medical accuracy by faculty at the [facility]. Web site: [email or web address] R TRANSPORTATION WORKER documented in this encounter Progress Notes Jayson Lombardo MD - 02/25/2015 7:09 AM CST SUBJECTIVE: CC: Nataly Simon is an 24 year old woman who presents for preventive health visit. Healthy Habits: ?? Do you get at least three servings of calcium containing foods daily (dairy, green leafy vegetables, etc.)? yes ?? Amount of exercise or daily activities, outside of work: 4 day(s) per week ?? Problems taking medications regularly No ?? Medication side effects: No ?? Have you had an eye exam in the past two years? yes ?? Do you see a dentist twice per year? yes ?? Do you have sleep apnea, excessive snoring or daytime drowsiness?no Other concerns to address: Left eye issue x 2 weeks, bump Today's PHQ-2 Score: PHQ-2 (??1998 Developed by Drs. Memo Rodriguez, Day Gutierrez, Silas Reyna and colleagues,with an educational srikanth from [employer].) 12/12/2014 03/09/2014 Q1: Little interest or pleasure in doing things 2 0 Q2: Feeling down, depressed or hopeless 2 0 PHQ-2 Total Score Interpretation - Positive if 3 or more points; Administer PHQ- 9 if positive 4 0 Abuse: Current or Past(Physical, Sexual or Emotional)- No Do you feel safe in your environment - Yes History Substance Use Topics ??? Smoking status: Never Smoker ??? Smokeless tobacco: Never Used ??? Alcohol Use: 0.0 - 0.5 oz/week 0-1 Not specified per week The patient does not drink >3 drinks per day nor >7 drinks per week. Recent Labs Lab Test 03/09/14 0916 08/19/10 0849 CHOL 161 148 HDL 73 61 LDL 74 73 TRIG 69 73 CHOLHDLRATIO 2.2 2.4 Reviewed orders with patient. Reviewed health maintenance and updated orders accordingly - Yes Mammo Decision Support: Mammogram not appropriate for this patient based on age. Last Mammo:No results found. History of abnormal Pap smear: NO - age 21-29 PAP every 3 years recommended All Histories reviewed and updated in [facility]. Past Medical History Diagnosis Date [...] lesions E: NEGATIVE for vision changes or irritation, red bump on left lower eyelid ENT: NEGATIVE for ear, mouth and throat problems R: NEGATIVE for significant cough or SOB B: NEGATIVE for masses, tenderness or discharge CV: NEGATIVE for chest pain, palpitations or peripheral edema GI: NEGATIVE for nausea, abdominal pain, heartburn, or change in bowel habits female: No urinary symptoms, periods are regular M: NEGATIVE for significant arthralgias or myalgia N: NEGATIVE for weakness, dizziness or paresthesias P: NEGATIVE for changes in mood or affect Problem list, Medication list, Allergies, and Medical/Social/Surgical histories reviewed in [facility] andupdated as appropriate. OBJECTIVE: Pulse 68 Temp(Src) 98.4 ??F (36.9 ??C) (Oral) Ht 5' 7.5 (1.715 m) Wt 104 lb (47.174 kg) BMI16.04 kg/m2 SpO2 99% EXAM: GENERAL: healthy, alert and no distress EYES: Conjunctiva clear, left eye with lower lid stye HENT: ear canals and TM's normal, nose [...] routine adult health examination without abnormal findings - Lipid panel reflex to direct LDL - Glucose 2. Stye, left regular exercise healthy diet/nutrition reports that she has never smoked. She has never used smokeless tobacco. Estimated body mass index is 16.04 kg/(m^2) as calculated from the following: Height as of this encounter: 5' 7.5 (1.715 m). Weight as of this encounter: 104 lb (47.174 kg). Weight management plan noted, stable and monitoring and continue caloric supplements Counseling Resources: ATP IV Guidelines Pooled Cohorts Equation Calculator Breast Cancer Risk Calculator FRAX Risk Assessment ICSI Preventive Guidelines Dietary Guidelines for Americans, 2010 [email or web address]'s MyPlate Jayson Lombardo MD [facility] R TRANSPORTATION WORKER documented in this encounter Nursing Notes Eduar Jeff CMA - 02/25/2015 7:11 AM CST Chief Complaint Patient presents with ??? Physical ??? Blood Draw IS fasting Initial BP 94/64 mmHg Pulse 68 Temp(Src) 98.4 ??F (36.9 ??C) (Oral) Ht 5' 7.5 (1.715 m) Wt 104 lb (47.174 kg) BMI 16.04 kg/m2 SpO2 99% Estimated body mass index is 16.04 kg/(m^2) as calculated from the following: Height as of this encounter: 5' 7.5 (1.715 m). Weight as of this encounter: 104 lb (47.174 kg). BP completed using cuff size: justin Jeff CMA R TRANSPORTATION WORKER documented in this encounter Plan of Treatment Not on filedocumented as of this encounter Procedures Procedure Name Priority Date/Time Associated Diagnosis Comme nts LIPID REFLEX TO Routine 02/25/2015 7:36 AM Encounter for Resul ts for this DIRECT LDL PANEL RIVER TRANSPORTATION WORKER routine adult health pro cedure are in examination without the resu lts abnormal findings section. GLUCOSE Routine 02/25/2015 7:36 AM Encounter for Results for this RIVER TRANSPORTATION WORKER routine adult health procedu re are in examination without the resu lts abnormal findings section. documented in this encounter Results Glucose (02/25/2015 7:36 AM RIVER TRANSPORTATION WORKER) P athologist Signature Glucose 78 70 - 99 [facility] mg/dL [facility] Specimen Anatomical Collection Method Collection Time Receive d Time (Source) Location / / Volume Laterality Blood specimen 02/25/2015 7:36 AM 015 7:41 (specimen) RIVER TRANSPORTATION WORKER AM RIVER TRANSPORTATION WORKER Jayson Lombardo MD LAB - BLOOD ORDERABLES Performing Organization Address City/[facility] Code Phon e Number [facility] [address] [place] [address] Lipid panel reflex to direct LDL (02/25/2015 7:36 AM RIVER TRANSPORTATION WORKER) [facility] Method Time Signature Cholesterol 151 <200 [place] mg/dL [facility] Triglycerides 58 <150 [place] mg/dL [facility] HDL Cholesterol 69 >49 mg/dL [facility] LDL Cholesterol 70 <100 [place] Calculated mg/dL [facility] Comment: Desirable: <100 mg/dl Non HDL Cholesterol 82 <130 mg/dL [facility] Specimen Anatomical Collection Method Collection Time Receive d Time (Source) Location / / Volume Laterality Blood specimen 02/25/2015 7:36 AM 015 7:41 (specimen) RIVER TRANSPORTATION WORKER AM RIVER TRANSPORTATION WORKER Jayson Lombardo MD LAB - BLOOD ORDERABLES Performing Organization Address City/[facility] Code Phon e Number [facility] [address] [place] [address] documented in this encounter Visit Diagnoses Diagnosis Encounter for routine adult health exami nation without abnormal findings - Primary Stye, left documented in this encounter Additional Health Concerns Assessment Noted Time PHQ-9 Depression Total Score: 4 01/26/2015 7:25 AM RIVER TRANSPORTATION WORKER documented as of this encounter Care Teams Signals Officer Relationship Specialty Start Date End Date Jayson Lombardo MD PCP - General Family Practice 03/24/13 Jayson Lombardo MD PCP - Assigned PCP 08/12/14 05/17/18 Jayson Lombardo MD Assigned PCP 08/12/14 04/20/20 documented as of this encounter
--- OUTSIDE RECORDS SUMMARY | 2022-01-19 15:21 | XMS_ITS | Encounter Summary ---
:1990 Author Organization [place] Address [address] [place] [address] Care Team Providers Name Role Phone Jayson Lombardo MD Primary Care Provider Unavailable Reason for Visit Reason Onset Date Comments Medication Problem 09/07/2013 Topamax Encounter Details Date Type Department Care Team Description 09/07/2013 Telephone [facility] Jayson Lombardo, [facility] Problem Clinic Araceli RAMOS (Topamax) [facility], [address] [place] [address] Social History Tobacco Use Types Packs/Day Years Used Date Smoking Tobacco: Never Smokeless Tobacco: Never Alcohol Use Standard Drinks/Week Comments Yes 0 (1 standard drink = 0.6 oz pure alcoho l) Sex Assigned at Date Recorded Female 05/29/2020 7:33 PM CDT documented as of this encounter Miscellaneous Notes Telephone Encounter - Annabelle Hwang RN - 09/07/2013 2:57 PM CDT Called pt left detailed message on VM advising the following. Annabelle Hwang RN [facility] Work [facility] Telephone Encounter - Chela Servin PA-C - 09/07/2013 1:18 PM CDT Please have her wean off topamax Currently takes 2 tabs bid: Drop down to 1 tab bid x 1 week, then 1tab daily x 1 week then off. Follow-up for migraine management if worsening Telephone Encounter - Annabelle Hwang RN - 09/07/2013 11:29 AM CDT Nataly Simon is a 22 year old female who calls with medication problem. NURSING ASSESSMENT Description: Pt states she's been taking Topamax since 08/19 and since starting medication she's felt the following symptoms; intermittent tingling and warmth in hands and feet. She felt tingling for 11/2 weeks, this has subsided. Pt reports severe depression and stress that has worsened. I'm just over the edge depressed/stressed out. Taking medication(s) as prescribed? Yes Taking over the counter medication(s?) Aleve Medication(s) improving/managing symptoms? Yes, it helped with migraine Last exam/Treatment: 08/10/13 NURSING PLAN: Routed to provider Yes If further questions/concerns or if symptoms do not improve, worsen or new symptoms develop, call your PCP or [facility] as soon as possible. Pt would like to know if she can DC medication. Does she have to taper off or can she just DC? Stateshe doesn't want to be on it anymore. Please advise. Chart needs to be updated. PT: [phone] (Ok to ) Thank you! Annabelle Hwang RN documented in this encounter Plan of Treatment Not on filedocumented as of this encounter Visit Diagnoses Diagnosis Migraines Migraine, unspecified, without mention o f intractable migraine without mention of status migrainosus documented in this encounter Care Teams Scoop Driver Relationship Specialty Start Date End Date Jayson Lombardo MD PCP - General Family Practice 03/24/13 documented as of this encounter
--- OUTSIDE RECORDS SUMMARY | 2022-01-19 15:21 | XMS_ITS | Encounter Summary ---
:1990 Author Organization [place] Address [address] [place] [address] Care Team Providers Name Role Phone Jayson Lombardo MD Primary Care Provider Unavailable Reason for Visit Reason Onset Date Comments Panel Management 01/10/2014 Encounter Details Date Type Department Care Team Description 01/10/2014 Telephone [facility] Jayson Lombardo Ra, MD Panel Management [place] [id number] [place] [phone] Social History Tobacco Use Types Packs/Day Years Used Date Smoking Tobacco: Never Smokeless Tobacco: Never Alcohol Use Standard Drinks/Week Comments Yes 0 (1 standard drink = 0.6 oz pure alcoho l) Sex Assigned at Date Recorded Female 05/29/2020 7:33 PM CDT documented as of this encounter Miscellaneous Notes Telephone Encounter - WeissJed her, FOUNDRY FINISHER - 01/10/2014 2:44 PM CDT Panel Management Review Date of last visit with a [place] provider: Chela Engel on 08-10-13. Date of next visit with a [place] provider: None. Problem List Patient Active Problem List Diagnosis ??? IRREGULAR MENSTRUATION ??? CARDIOVASCULAR SCREENING; LDL GOAL LESS THAN 160 ??? MVP (mitral valve prolapse) ??? Spontaneous pneumothorax, LEFT Health Maintenance List Health Maintenance Topic Date Due ??? INFLUENZA VACCINE (SYSTEM ASSIGNED) 12/13/2013 ??? TETANUS IMMUNIZATION (SYSTEM ASSIGNED) 10/25/2022 ??? MIGRAINE ACTION PLAN,ONE TIME,NO INBASKET Completed For diabetic patients with hyperlipidemia, only [...] this basename: pap Past Surgical History Procedure Laterality Date ??? [...] is due/failing the following: PAP Action needed: Routed to provider for review. Type of outreach: None, routed to provider for review. Questions for provider review: Pap light is off. Should this be Please indicate office visit, lab, MTM, or nurse appt if needed. Indicate fasting or not fasting. Jed Weiss CMA Chart routed to Provider . documented in this encounter Plan of Treatment Not on filedocumented as of this encounter Visit Diagnoses Not on filedocumented in this encounter Care Teams Production Line Technician Relationship Specialty Start Date End Date Jayson Lombardo MD PCP - General Family Practice 03/24/13 documented as of this encounter
--- OUTSIDE RECORDS SUMMARY | 2022-01-19 15:21 | XMS_ITS | Encounter Summary ---
:1990 Author Organization [place] Address [address] [place] [address] Care Team Providers Name Role Phone Jayson Lombardo MD Primary Care Provider Unavailable Jayson Lombardo MD Unavailable Unavailable Reason for Visit [facility] Physical Therapy (Routine) - Closed Specialty Diagnoses / Procedures Referred By Contact Refer red To Contact Physical Therapist / Diagnoses L sciatica/ Irina Ibrahim @ [facility] in [place]/ [facility] Self, Referred, Gurvinder Cross, PT Physical Therapy Procedures [facility] [address] [place], [place] [address] Phone: Fax: Referral ID Status Reason Start Date Expiration Date Visits Requ ested Visits Authorized [id number] Closed 01/31/2020 03/14/2020 40 40 Encounter Details Date Type Department Care Team Description 03/01/2020 Therapy Visit [facility] Gurvinder Gan, PT Chronic left-sided Rehabilitation Services [address] low back pain with [place] [address] left-sided sciatica [address] [place] [phone] Social History Tobacco Use Types Packs/Day Years Used Date Smoking Tobacco: Never Smokeless Tobacco: Never Alcohol Use Standard Drinks/Week Comments Yes 0 (1 standard drink = 0.6 oz pure alcoho l) Sex Assigned at Date Recorded Female 05/29/2020 7:33 PM CDT COVID-19 Exposure Response Date Recorded In the last month, have you been in contact with No / Unsure 03/01/2020 11:02 AM SETTER JUICE PACKAGING MACHINES someone who was 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 documented as of this encounter Progress Notes Gurvinder Bauman, PT - 03/01/2020 11:10 AM CST Subjective: HPI Physical Exam Objective: System Physical Exam General ROS Assessment/Plan: SUBJECTIVE Subjective changes as noted by pt: Pt reports pain is intermittent. Pt had 2 good days last week with minimal pain Current pain level: 2/10 Changes in function: Pt reports difficulty having time to do standing exercises. Pt can do floor exercises while watching her daughter Adverse reaction to treatment or activity: None, OBJECTIVE Changes in objective findings: Pt notes tightness piriformis L>R ASSESSMENT Nataly continues to require intervention to meet STG and LTG's: PT Patient's symptoms are resolving. Response to therapy has shown an improvement in frequency of pain Progress made towards STG/LTG? Yes, PLAN Current treatment program is being advanced to more complex exercises. EMPLOYEE SERVICES MANAGER/ATC plan: N/A Please refer to the daily flowsheet for treatment today, total treatment time and time spent performing 1:1 timed codes. ER JUICE PACKAGING MACHINES documented in this encounter Plan of Treatment Not on filedocumented as of this encounter Procedures Procedure Name Priority Date/Time Associated Diagnosis Comme nts MD NEUROMUSCULAR Routine 03/01/2020 4:15 PM Chronic left-sided REEDUCATION,1+ AREAS, EA SETTER JUICE PACKAGING MACHINES low back pain wi th 15 MIN left-sided sciatica MD THERAPEUTIC EXERCISES. Routine 03/01/2020 4:15 PM Chronic l eft-sided EA 15 MIN SETTER JUICE PACKAGING MACHINES low back pain with left-sided sciatica documented in this encounter Visit Diagnoses Diagnosis Chronic left-sided low back pain with le ft-sided sciatica documented in this encounter Additional Health Concerns Assessment Noted Time PHQ-9 Depression Total Score: 9 09/12/2015 7:13 AM CDT documented as of this encounter Care Teams Call Center Dispatcher Relationship Specialty Start Date End Date Jayson Lombardo MD PCP - General Family Practice 03/24/13 Jayson Lombardo MD Assigned PCP 08/12/14 04/20/20 documented as of this encounter
--- OUTSIDE RECORDS SUMMARY | 2022-01-19 15:21 | XMS_ITS | Encounter Summary ---
:1990 Author Organization [place] Address [address] [place] [address] Care Team Providers Name Role Phone Jayson Lombardo MD Primary Care Provider Unavailable Jayson Lombardo MD Unavailable Unavailable Reason for Visit NELL Physical Therapy (Routine) - Closed Specialty Diagnoses / Procedures Referred By Contact Refer red To Contact Physical Therapist / Diagnoses L sciatica/ Irina Ibrahim @ [facility] in [place]/ [facility] Self, Referred, Gurvinder Cross, PT Physical Therapy Procedures [facility] [address] [place], [place] [address] Phone: Fax: Referral ID Status Reason Start Date Expiration Date Visits Requ ested Visits Authorized [id number] Closed 01/31/2020 03/14/2020 40 40 Encounter Details Date Type Department Care Team Description 02/14/2020 Therapy Visit [facility] Gurvinder Gan, PT Chronic left-sided Rehabilitation Services [address] low back pain with [place] [address] left-sided sciatica [address] [place] [phone] Social History Tobacco Use Types Packs/Day Years Used Date Smoking Tobacco: Never Smokeless Tobacco: Never Alcohol Use Standard Drinks/Week Comments Yes 0 (1 standard drink = 0.6 oz pure alcoho l) Sex Assigned at Date Recorded Female 05/29/2020 7:33 PM CDT COVID-19 Exposure Response Date Recorded In the last month, have you been in contact with No / Unsure 02/14/2020 11:06 AM ENGAGEMENT DIRECTOR someone who was 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 documented as of this encounter Progress Notes Gurvinder Bauman, PT - 02/14/2020 11:10 AM CST Subjective: HPI Physical Exam Objective: System Physical Exam General ROS Assessment/Plan: SUBJECTIVE Subjective changes as noted by pt: Pt notes overall improvement in pain. Current pain level: 0/10 To 4/10 Changes in function: Pt still notes some pain with lifting her son. Pt notes increased ease with rising from a chair and turning in bed. Adverse reaction to treatment or activity: None OBJECTIVE Changes in objective findings: Pt continues to notes pain and limitation with lumbar extension more than flexion. Pt noted relief of symptoms with manual traction ASSESSMENT Nataly continues to require intervention to meet STG and LTG's: PT Patient's symptoms are resolving. Response to therapy has shown an improvement in function Progress made towards STG/LTG? Yes, PLAN Current treatment program is being advanced to more complex exercises. BENCH LAY OUT TECHNICIAN/ATC plan: N/A Please refer to the daily flowsheet for treatment today, total treatment time and time spent performing 1:1 timed codes. GEMENT DIRECTOR documented in this encounter Plan of Treatment Not on filedocumented as of this encounter Procedures Procedure Name Priority Date/Time Associated Diagnosis Comme nts ME NEUROMUSCULAR Routine 02/14/2020 2:01 PM Chronic left-sided REEDUCATION,1+ AREAS, EA ENGAGEMENT DIRECTOR low back pain wi th 15 MIN left-sided sciatica ME THERAPEUTIC EXERCISES. Routine 02/14/2020 2:01 PM Chronic l eft-sided EA 15 MIN ENGAGEMENT DIRECTOR low back pain with left-sided sciatica documented in this encounter Visit Diagnoses Diagnosis Chronic left-sided low back pain with le ft-sided sciatica documented in this encounter Additional Health Concerns Assessment Noted Time PHQ-9 Depression Total Score: 9 09/12/2015 7:13 AM CDT documented as of this encounter Care Teams Bookkeeping Teacher Relationship Specialty Start Date End Date Jayson Lombardo MD PCP - General Family Practice 03/24/13 Jayson Lombardo MD Assigned PCP 08/12/14 04/20/20 documented as of this encounter
--- OUTSIDE RECORDS SUMMARY | 2022-01-19 15:21 | XMS_ITS | Encounter Summary ---
:1990 Author Organization [facility] Address [address] [place] [id number] Care Team Providers Name Role Phone Jayson Lombardo MD Primary Care Provider Unavailable Jayson Lombardo MD Unavailable Unavailable Jayson Lombardo MD Unavailable Unavailable Reason for Visit Reason Onset Date Comments Panel Management 11/30/2014 pap reminder Encounter Details Date Type Department Care Team Description [facility] [place] reminder[facility] [address] [place] [address] Social History Tobacco Use Types Packs/Day Years Used Date Smoking Tobacco: Never Smokeless Tobacco: Never Alcohol Use Standard Drinks/Week Comments Yes 0 (1 standard drink = 0.6 oz pure alcoho l) Sex Assigned at Date Recorded Female 05/29/2020 7:33 PM CDT documented as of this encounter Miscellaneous Notes Telephone Encounter - Eduar Jeff, [facility] - 11/30/2014 1:14 PM CDT Panel Management Review Date of last visit with a [facility] provider: Grupo on 02/17/2015. Date of next visit with a [facility] provider: None. Problem List Patient Active Problem List Diagnosis ??? IRREGULAR MENSTRUATION ??? CARDIOVASCULAR SCREENING; LDL GOAL LESS THAN 160 ??? MVP (mitral valve prolapse) ??? Spontaneous pneumothorax, LEFT Health Maintenance List Health Maintenance Topic Date Due ??? PAP SCREENING Q3 YR (SYSTEM ASSIGNED) 2010 ??? INFLUENZA VACCINE (SYSTEM ASSIGNED) 11/13/2014 ??? TETANUS IMMUNIZATION (SYSTEM ASSIGNED) 10/25/2022 ??? MIGRAINE ACTION PLAN,ONE TIME,NO INBASKET Completed For diabetic patients with hyperlipidemia, only choose diabetes. Patient has the following on her problem list: Composite cancer screening Chart review shows that [...] Action needed: Patient needs office visit for pap is needed. Type of outreach: Sent [facility] message. Questions for provider review: None Please indicate office visit, lab, MTM, or nurse appt if needed. Indicate fasting or not fasting. Eduar Jeff CMA Chart routed to pap needed . documented in this encounter Plan of Treatment Not on filedocumented as of this encounter Visit Diagnoses Not on filedocumented in this encounter Care Teams Brake Repairer Bus Relationship Specialty Start Date End Date Jayson Lombardo MD PCP - General Family Practice 03/24/13 Jayson Lombardo MD PCP - Assigned PCP 08/12/14 05/17/18 Jayson Lombardo MD Assigned PCP 08/12/14 04/20/20 documented as of this encounter
--- OUTSIDE RECORDS SUMMARY | 2022-01-19 15:21 | XMS_ITS | Encounter Summary ---
:1990 Author Organization [place] [facility] Address [address] [place] [address] Care Team Providers Name Role Phone Jayson Lombardo MD Primary Care Provider Unavailable Jayson Lombardo MD Unavailable Unavailable Reason for Visit [facility] Physical Therapy (Routine) - Closed Specialty Diagnoses / Procedures Referred By Contact Refer red To Contact Physical Therapist / Diagnoses L sciatica/ Irina Ibrahim @ [facility] in [place]/ [facility] Self, Referred, Gurvinder Cross, PT Physical Therapy Procedures SPINE INITIAL [address] [place], [place] [address] Phone: Fax: Referral ID Status Reason Start Date Expiration Date Visits Requ ested Visits Authorized [id number] Closed 01/31/2020 03/14/2020 40 40 Encounter Details Date Type Department Care Team Description 02/07/2020 Therapy Visit [facility] Gurvinder Gan, PT Chronic left-sided Rehabilitation Services [address] low back pain with [place] [address] left-sided sciatica [address] [place] [phone] Social History Tobacco Use Types Packs/Day Years Used Date Smoking Tobacco: Never Smokeless Tobacco: Never Alcohol Use Standard Drinks/Week Comments Yes 0 (1 standard drink = 0.6 oz pure alcoho l) Sex Assigned at Date Recorded Female 05/29/2020 7:33 PM CDT COVID-19 Exposure Response Date Recorded In the last month, have you been in contact with No / Unsure 02/07/2020 11:08 AM CATTLE STICKER someone who was 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 documented as of this encounter Plan of Treatment Not on filedocumented as of this encounter Procedures Procedure Name Priority Date/Time Associated Diagnosis Comme nts NV NEUROMUSCULAR Routine 02/07/2020 11:48 AM Chronic left-side d REEDUCATION,1+ AREAS, EA CATTLE STICKER low back pain wi th 15 MIN left-sided sciatica NV THERAPEUTIC EXERCISES. Routine 02/07/2020 11:48 AM Chronic left-sided EA 15 MIN CATTLE STICKER low back pain with left-sided sciatica documented in this encounter Visit Diagnoses Diagnosis Chronic left-sided low back pain with le ft-sided sciatica documented in this encounter Additional Health Concerns Assessment Noted Time PHQ-9 Depression Total Score: 9 09/12/2015 7:13 AM CDT documented as of this encounter Care Teams Hyperbaric Technologist Relationship Specialty Start Date End Date Jayson Lombardo MD PCP - General Family Practice 03/24/13 Jayson Lombardo MD Assigned PCP 08/12/14 04/20/20 documented as of this encounter
--- OUTSIDE RECORDS SUMMARY | 2022-01-19 15:21 | XMS_ITS | Encounter Summary ---
:1990 Author Organization [facility] Address [address] [place] [address]. [place] [address] Care Team Providers Name Role Phone Jayson Lombardo MD Primary Care Provider Unavailable Jayson Lombardo MD Unavailable Unavailable Jayson Lombardo MD Unavailable Unavailable Reason for Visit Reason Comments Anxiety Encounter Details Date Type Department Care Team Description 10/20/2014 Office Visit [facility] Liu Ureña Acute reaction to Clinic [facility] RENÉ Basilio stress (Primary Dx) [address] [phone] Social History Tobacco Use Types Packs/Day Years Used Date Smoking Tobacco: Never Smokeless Tobacco: Never Alcohol Use Standard Drinks/Week Comments Yes 0 (1 standard drink = 0.6 oz pure alcoho l) Sex Assigned at Date Recorded Female 05/29/2020 7:33 PM CDT documented as of this encounter Last Filed Vital Signs Vital Sign Reading Time Taken Comments Blood Pressure 96/72 10/20/2014 9:04 AM CDT Pulse 68 10/20/2014 9:04 AM CDT Temperature 36.5 ??C (97.7 ??F) 10/20/2014 9:04 AM CDT Respiratory Rate 20 10/20/2014 9:04 AM CDT Oxygen Saturation - - Inhaled Oxygen Concentration - - Weight 47.6 kg (105 lb) 10/20/2014 9:04 AM CDT Height 172.1 cm (5' 7.75) 10/20/2014 9:04 AM CDT Body Mass Index 16.08 10/20/2014 9:04 AM CDT documented in this encounter Progress Notes Liu Ureña PA-C - 10/19/2014 3:42 PM CDT HPI SUBJECTIVE: Nataly Simon is a 23 year old female who presents to clinic today for the following health issues: Abnormal Mood Symptoms ?? Onset: 2 weeks ?? Description: Depression: no Anxiety: YES ?? Accompanying Signs & Symptoms: Still participating in activities that you used to enjoy: YES Fatigue: no Irritability: no Difficulty concentrating: YES- sometimes Changes in appetite: no Problems with sleep: no Heart racing/beating fast : YES Thoughts of hurting yourself or others: none ?? History: Recent stress: YES Prior depression hospitalization: None Family history of depression: YES Family history of anxiety: YES ?? Precipitating factors: Alcohol/drug use: no ?? Alleviating factors: Relaxing activities, eating a balanced diet, taking care of self, have a social life ?? Therapies Tried and outcome: None Nataly is experiencing excessive stress with her current job. There have been some changes in the past two weeks that are expected to last for the next 2-3 weeks. She starts to feel anxiety about this upon awakening in the morning. Physical sx- chest tightness, cannot relax. This lasts all day, when she gets home she tries to calm down but it takes a long time. She is sleeping OK however. But then itall starts over again the next day. She is feeling frustrated and like she cannot tolerate this any more. She is wondering if anything can be done about this. She has no past hx of trouble with anxiety, panic or depression. Mom with anxiety and problems with depression. Problem list and histories reviewed & adjusted, as indicated. Additional history: as documented Problem list, Medication list, Allergies, and Medical/Social/Surgical histories reviewed in [facility] andupdated as appropriate. ROS: Constitutional, HEENT, cardiovascular, pulmonary, gi and gu systems are negative, except as otherwise noted. OBJECTIVE: BP 96/72 mmHg Pulse 68 Temp(Src) 97.7 ??F (36.5 ??C) (Oral) Resp 20 Ht 5' 7.75 (1.721 m) Wt 105 lb (47.628 kg) BMI 16.08 kg/m2 ? No Body mass index is 16.08 kg/(m^2). GENERAL: healthy, alert and no distress NECK: no adenopathy, no asymmetry, masses, or scars and thyroid normal to palpation CV: regular rate and rhythm, normal S1 S2, no S3 or S4, no murmur, click or rub, no peripheral edemaand peripheral pulses strong PSYCH: mentation appears normal, affect normal/bright Diagnostic Test Results: none ASSESSMENT/PLAN: Problem List Items Addressed This Visit None Visit Diagnoses Acute reaction to stress - Primary Relevant Medications clonazePAM (klonoPIN) tablet MEDICATIONS: Orders Placed This Encounter Medications ??? Norethindrone (JOHN PO) Sig: ??? clonazePAM (KLONOPIN) 0.5 MG tablet Sig: Take 0.5-1 tablets (0.25-0.5 mg) by mouth 2 times daily as needed for anxiety Dispense: 20 tablet Refill: 0 Refills OK but if sx are lasting past one month I have asked her to follow up and we will consider longer term plan. Liu Ureña PA-C [facility] Physical Exam documented in this encounter Nursing Notes Juliana Suggs MA - 10/20/2014 9:11 AM CDT Chief Complaint Patient presents with ??? Anxiety Initial BP 96/72 mmHg Pulse 68 Temp(Src) 97.7 ??F (36.5 ??C) (Oral) Resp 20 Ht 5' 7.75 (1.721 m) Wt 105 lb (47.628 kg) BMI 16.08 kg/m2 ? No Estimated body mass index is 16.08 kg/(m^2) as calculated from the following: Height as of this encounter: 5' 7.75 (1.721 m). Weight as of this encounter: 105 lb (47.628 kg). BP completed using cuff size: regular Juliana Suggs MA documented in this encounter Miscellaneous Notes Addendum Note - Ratna Richards - 10/22/2014 9:44 AM CDT Addended by: RATNA RICHARDS on: 10/22/2014 09:44 AM Modules accepted: Orders, SmartSet documented in this encounter Plan of Treatment Not on filedocumented as of this encounter Visit Diagnoses Diagnosis Acute reaction to stress - Primary documented in this encounter Care Teams Die Designer Relationship Specialty Start Date End Date Jayson Lombardo MD PCP - General Family Practice 03/24/13 Jayson Lombardo MD PCP - Assigned PCP 08/12/14 05/17/18 Jayson Lombardo MD Assigned PCP 08/12/14 04/20/20 documented as of this encounter
--- OUTSIDE RECORDS SUMMARY | 2022-01-19 15:21 | XMS_ITS | Encounter Summary ---
:1990 Author Organization [facility] Address [facility]ly [facility] [place] [address] Care Team Providers Name Role Phone Jayson Lombardo MD Primary Care Provider Unavailable Reason for Visit Reason Onset Date Comments Refill Request 07/25/2013 SUMAtriptan (IMITREX ) 100 MG tablet Encounter Details Date Type Department Care Team Description 07/25/2013 Shawanda Luu [facility] Malathi, Refill Request Clinic [place] Chela Contreras PA-C (SUMAtriptan (IMITREX) [address] [facility] [id number] [place] [address] [address] ... [place] [address] [phone] Social History Tobacco Use Types Packs/Day Years Used Date Smoking Tobacco: Never Smokeless Tobacco: Never Alcohol Use Standard Drinks/Week Comments Yes 0 (1 standard drink = 0.6 oz pure alcoho l) Sex Assigned at Date Recorded Female 05/29/2020 7:33 PM CDT documented as of this encounter Miscellaneous Notes Telephone Encounter - Kaylynn Cooper RN - 08/01/2013 3:47 PM CDT PT is aware she needs to be seen for this. See mychart Kaylynn Cooper RN Telephone Encounter - Annabelle Hwang RN - 07/27/2013 2:15 PM CDT RF request for Imitrex Maximum dosage/24 hours is 200mg LAURA: 01/05/13 Dx: cough, fatigue Last Refill: 10/25/12 #18 x1 RF BP Readings from Last 1 Encounters: 03/24/13 105/68 Creatinine Date Value Range Status 03/24/2013 0.84 0.52 - 1.04 mg/dL Final OV note from 10/25/12: 346.90 Migraines Comment: gave a migraine folder. Please track how often migraines happened and follow-up in 1-2 months Plan: SUMAtriptan (IMITREX) 100 MG tablet, MIGRAINE ACTION PLAN Annabelle Hwang RN [facility] [employer] Telephone Encounter - Mel Ruggiero - 07/26/2013 8:23 AM CDT Message from Elastra: Original authorizing provider: Chela Servin PA-C, RENÉ Simon would like a refill of the following medications: SUMAtriptan (IMITREX) 100 MG tablet [Chela Servin PA-C, RENÉ] Preferred pharmacy: [id number] [address] [facility] Comment: documented in this encounter Plan of Treatment Not on filedocumented as of this encounter Visit Diagnoses Diagnosis Migraines Migraine, unspecified, without mention o f intractable migraine without mention of status migrainosus documented in this encounter Care Teams Cotton Ginner Relationship Specialty Start Date End Date Jayson Lombardo MD PCP - General Family Practice 03/24/13 documented as of this encounter
--- OUTSIDE RECORDS SUMMARY | 2022-01-19 15:21 | XMS_ITS | Encounter Summary ---
:1990 Author Organization [facility] Address [address] [place] [address] Care Team Providers Name Role Phone Jayson Lombardo MD Primary Care Provider Unavailable Jayson Lombardo MD Unavailable Unavailable Encounter Details Date Type Department Care Team Description 02/07/2020 Travel Social History Tobacco Use Types Packs/Day Years Used Date Smoking Tobacco: Never Smokeless Tobacco: Never Alcohol Use Standard Drinks/Week Comments Yes 0 (1 standard drink = 0.6 oz pure alcoho l) Sex Assigned at Date Recorded Female 05/29/2020 7:33 PM CDT COVID-19 Exposure Response Date Recorded In the last month, have you been in contact with No / Unsure 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 documented as of this encounter Plan of Treatment Not on filedocumented as of this encounter Visit Diagnoses Not on filedocumented in this encounter Additional Health Concerns Assessment Noted Time PHQ-9 Depression Total Score: 9 09/12/2015 7:13 AM CDT documented as of this encounter Care Teams Choir Director Relationship Specialty Start Date End Date Jayson Lombardo MD PCP - General Family Practice 03/24/13 Jayson Lombardo MD Assigned PCP 08/12/14 04/20/20 documented as of this encounter
--- OUTSIDE RECORDS SUMMARY | 2022-01-19 15:22 | XMS_ITS | Encounter Summary ---
:1990 Author Organization [facility] Address [address] [place] [address]. [place] [address] Care Team Providers Name Role Phone Chela Servin PA-C Primary Care Provider Reason for Visit Reason Onset Date Comments Refill Request 08/10/2012 Encounter Details Date Type Department Care Team Description 08/10/2012 Refill [facility] Chela Servin Refill Request [place] RENÉ Contreras [address] [facility] [address] [place] [phone] [place] [address] (Wo rk) Social History Tobacco Use Types Packs/Day Years Used Date Smoking Tobacco: Never Smokeless Tobacco: Never Alcohol Use Standard Drinks/Week Comments No 0 (1 standard drink = 0.6 oz pure alcoho l) Sex Assigned at Date Recorded Female 05/29/2020 7:33 PM CDT documented as of this encounter Miscellaneous Notes Telephone Encounter - Kaylynn Cooper - 08/10/2012 3:24 PM CDT LM for pt to call and sched. Yearly exam RF request for oral contraception Ok per RN protocol x 3 mos. LAURA 09/10/11 related to request Kaylynn Cooper RN BP Readings from Last 1 Encounters: 11/05/11 124/84 Date of last routine physical exam: 09/10/11 -Encounter/OV: every 12 months -Max RF's until annual pap and physical exam: 12 months -May refill 1 month extra if annual exam is scheduled Category: Female Medications/Oral-Patch Contraceptives documented in this encounter Plan of Treatment Not on filedocumented as of this encounter Visit Diagnoses Diagnosis IRREGULAR MENSTRUATION - Primary Irregular menstrual cycle documented in this encounter Care Teams Special Procedures Nurse Relationship Specialty Start Date End Date Chela Servin PA-C PCP - General Family Practice 08/05/10 03/23/13 [id number] [place] [address] documented as of this encounter
--- OUTSIDE RECORDS SUMMARY | 2022-01-19 15:22 | XMS_ITS | Encounter Summary ---
:1990 Author Organization [facility] Address [address] [place] [address]. [place] [address] Care Team Providers Name Role Phone Jayson Lombardo MD Primary Care Provider Unavailable Reason for Visit Reason Comments Abdominal Pain Encounter Details Date Type Department Care Team Description 03/24/[address] [facility] Emerita Bhatti Ab dominal pain [facility] Emergency Dep t (Primary Dx) [address] [place], [place] [address] [address] [facility] [phone] [address] [place] [address] (Wo rk) Social History Tobacco Use Types Packs/Day Years Used Date Smoking Tobacco: Never Smokeless Tobacco: Never Alcohol Use Standard Drinks/Week Comments Yes 0 (1 standard drink = 0.6 oz pure alcoho l) Sex Assigned at Date Recorded Female 05/29/2020 7:33 PM CDT documented as of this encounter Last Filed Vital Signs Vital Sign Reading Time Taken Comments Blood Pressure 105/68 03/24/2013 10:00 PM [facility] Pulse 104 03/24/2013 7:43 PM [facility] Temperature 36.7 ??C (98.1 ??F) 03/24/2013 7:43 PM [facility] Respiratory Rate 16 03/24/2013 7:43 PM [facility] Oxygen Saturation 100% 03/24/2013 10:00 PM [facility] Inhaled Oxygen Concentration - - Weight - - Height - - Body Mass Index - - documented in this encounter Discharge Instructions Discharge InstructionsEmerita Bhatti MD - 03/24/2013 9:47 PM CST Discharge Instructions Abdominal Pain Abdominal pain can be caused by many things. Your evaluation today does not show the exact cause foryour pain. Your doctor today has decided that it is unlikely your pain is due to a life threatening problem, or a problem requiring surgery or hospital admission. Sometimes those problems cannot be found right away, so it is very important that you follow up as directed. Sometimes only the changes which occur over time allow the cause of your pain to be found. Return to the Emergency Department for a recheck in 8-12 hours if your pain continues. If your pain gets worse, changes in location, or feels different, return to the Emergency Department right away. ADULTS: Return to the Emergency Department right away if: You get an oral temperature above 102oF or as directed by your doctor. You have blood in your stools (bright red or black, tarry stools). You keep throwing up or can???t drink liquids. You see blood when you throw up. You can???t have a bowel movement or you can???t pass gas. Your stomach gets bloated or bigger. Your skin or the whites of your eyes look yellow. You faint. You have bloody, frequent or painful urination. You have new symptoms or anything that worries you. CHILDREN: Return to the Emergency Department right away if your child has any of the above-listed symptoms or the following: Pushes your hand away or screams/cries when his/her belly is touched. You notice your child is very fussy or weak. Your child is very tired and is too tired to eat or drink. Your child is dehydrated. Signs of dehydration can be: o Your infant has had no wet diapers in 4-5 hours. o Your older child has not passed urine in 6-8 hours. o Your infant or child starts to have dry mouth and lips, or no saliva or tears. WOMEN: Return to the Emergency Department right away if you have any of the above-listed symptoms or the following: You have bleeding, leaking fluid or passing tissue from the vagina You have worse pain or cramping, or pain in your shoulder or back. You have vomiting that will not stop. You have painful or bloody urination. You have a temperature of 100oF or more. Your baby is not moving as much as usual. You faint. You get a bad headache with or without eye problems and abdominal pain. You have a convulsion or seizure. You have unusual discharge from your vagina and abdominal pain. Abdominal pain is pretty common during . Your pain may or may not be related to your . You should follow-up closely with your OB doctor so they can evaluate you and your baby. Until you follow-up with your regular doctor, do the following: Avoid sex and do not put anything in your vagina. Drink clear fluids. Only take medications approved by your doctor. MORE INFORMATION: Appendicitis: A possible cause of abdominal pain in any person who still has their appendix is acuteappendicitis. Appendicitis is often hard to diagnose. Testing does not always rule out early appendicitis or other causes of abdominal pain. Close follow-up with your doctor and re-evaluations may be needed to figure out the reason for your abdominal pain. Follow-up: It is very important that you make an appointment with your clinic and go to the appointment. If you do not follow-up with your primary doctor, it may result in missing an important development which could result in permanent injury or disability and/or lasting pain. If there is any problemkeeping your appointment, call your doctor or return to the Emergency Department. Medications: Take your medications as directed by your doctor today. Before using [id number] medications, ask your doctor and make sure to take the medications as directed. If you have any questions about medications, ask your doctor. Diet: Resume your normal diet as much as possible, but do not eat fried, fatty or spicy foods while you have pain. Do not drink alcohol or have caffeine. Do not smoke tobacco. Remember that you can always come back to the Emergency Department if you are not able to see your normal doctor in the amount of time listed above, if you get any new symptoms, or if there is anythingthat worries you. Discharge Instructions Gastroenteritis You have been seen today for vomiting and diarrhea, called gastroenteritis or the stomach flu. This is usually caused by a virus, but some bacteria, parasites, medicines or other medical conditions cancause similar symptoms. At this time your doctor does not find that your vomiting and diarrhea is a sign of anything dangerous or life-threatening. However, sometimes the signs of serious illness do not show up right away. If you have new or worse symptoms, you may need to be seen again in the emergency department or by your primary doctor. Remember that serious problems like appendicitis can look like gastroenteritis at first. Return to the Emergency Department if: You keep throwing up and you are not able to keep liquids down. You feel you are getting dehydrated, such as being very thirsty, not urinating at least every 8-12 hours, or feeling faint or lightheaded. You develop a new fever, or your fever continues for more than 2 days. You have belly pain that seems worse than cramps, is in one spot, or is getting worse over time. You have blood in your vomit or in your diarrhea. You feel very weak You are not starting to improve within 24 hours of your visit here What can I do to help myself? The most important thing to do is to drink clear liquids. If you have been vomiting a lot, it is best to have only small, frequent sips of liquids. Drinking too much at once may cause more vomiting. If you are vomiting often, you must replace minerals, sodium and potassium lost with your illness. Pedi alyte?? and sports drinks can help you replace these minerals. You can also drink clear liquids suchas water, weak tea, apple juice, and 7-up. Avoid acid liquids (orange), caffeine (coffee) or alcohol. Do not drink milk until you no longer have diarrhea. After liquids are staying down, you may start eating mild foods. Soda crackers, toast, plain noodles, gelatin, applesauce and bananas are good first choices. Avoid foods that have acid, are spicy, fatty or fibrous (such as meats, coarse grains, vegetables). You may start eating these foods again in about 3 days when you are better. Sometimes treatment includes prescription medicine to prevent nausea and vomiting and to prevent diarrhea. If your doctor prescribes these for you, take them as directed. Nonprescription medicine is available for the treatment of diarrhea and can be very effective. If you use it, make sure you use the dose recommended on the package. Avoid Lomotil. Check with your healthcare provider before you use any medicine for diarrhea. Don???t take ibuprofen, or other nonsteroidal anti-inflammatory medicines without checking with your healthcare provider. Remember that you can always come back to the Emergency Department if you are not able to see your regular doctor in the amount of time listed above, if you get any new symptoms, or if there is anything that worries you. [facility] documented in this encounter Medications at Time of Discharge Medication Sig Dispensed Refills Start Date End Date levonorgestrel-ethinyl Take 1 tablet by 84 tablet 3 013 08/10/2013 estradiol (AVIANE) mouth daily 0.1-20 MG-MCG per tabletIndications: Irregular menstrual cycle SUMAtriptan (IMITREX) Take 1 tablet (100 18 tablet 1 201208/10/2013 100 MG mg) by mouth at onset tabletIndications: of headache for Migraines migraine May repeat in 2 hours if needed: max 2/day; documented as of this encounter ED Notes Maricel Broussard - 03/24/2013 9:00 PM CST Transported pt. To CT via stretcher. [facility] Emerita Bhatti MD - 03/24/2013 7:56 PM CST History Chief Complaint: Abdominal Pain HPI Nataly Simon is a 22 year old female who presents with her mother for evaluation of abdominal pain. The patient states that approximately one week ago she had a 24 hour bug with vomiting. She states that for the last 6 days she has had some mild stomach pain intermittently. She reports that tonight she experienced an hour long episode of more severe cramping, prompting her visit, but her pain is down to 1/10 now. She does also note upper back pain. She notes a few episodes of loose stools but no significant diarrhea. Her last period was 2-3 weeks ago and was normal. She denies fever/chills, nausea/vomiting, urinary symptoms, or any other complications or concerns. Allergies: No known drug allergies Medications: Levonorgestrel-ethinyl estradiol Sumatriptan Past Medical History: Mitral valve prolapse Pneumothorax on left Irregular menstruation Past Surgical History: Tooth extraction Thoracoscopic wedge resection lung Family History: Hypertension-Mother, Maternal grandmother Heart-Maternal grandfather Diabetes-Maternal grandfather Colon CA-Maternal grandfather Breast CA-Paternal grandmother Prostatic CA-Paternal grandfather Family history of ulcerative colitis Social History: The patient was accompanied to the ED by mother. Smoking Status: Never smoker Smokeless Tobacco: Never used Alcohol Use: Yes Review of Systems Constitutional: Negative for fever and chills. Gastrointestinal: Positive for abdominal pain (diffuse abdominal cramping). Negative for nausea, vomiting and diarrhea. + a few episodes of loose stools. Genitourinary: Negative for dysuria, urgency, frequency, hematuria and difficulty urinating. Musculoskeletal: Positive for back pain (upper). All other systems reviewed and are negative. Physical Exam First Vitals: BP: 117/79 mmHg Pulse: 104 Temp: 98.1 ??F (36.7 ??C) Resp: 16 SpO2: 98 % Physical Exam Physical Exam Constitutional: The patient is oriented to person, place, and time. Alert and cooperative. HENT: Right Ear: External ear normal. Left Ear: External ear normal. Nose: Nose normal. Mouth/Throat: Uvula is midline, oropharynx is clear and moist and mucous membranes are normal. No posterior oropharyngeal edema or erythema. Eyes: Conjunctivae, EOM and lids are normal. Pupils are equal, round, and reactive to light. Neck: Trachea normal. Normal range of motion. Neck supple. Cardiovascular: Tachycardia, regular rhythm, normal heart sounds, and intact distal pulses. Pulmonary/Chest: Effort normal and breath sounds equal bilaterally. No crackles or wheezing. Abdominal: Soft. Bowel sounds are normal. Epigastric and suprapubic abdominal pain. No rebound and no guarding. Musculoskeletal: Normal range of motion. No extremity tenderness or edema. No CVA tenderness. Lymphadenopathy: No cervical adenopathy. Neurological: Alert and oriented. Normal strength. No cranial nerve deficit or sensory deficit. Skin: Skin is dry. No rash noted. Psychiatric: Normal mood and affect. Emergency Department Course Imaging: Radiographic findings were communicated with the patient who voiced understanding of the findings. CT abdomen pelvis with contrast: 1. Unremarkable CT abdomen and pelvis with contrast. No evidence of diverticulitis. Appendix not visualized but no inflammation is noted about the cecum to suggest acute appendicitis. No free pelvic fluid or adnexal mass. 2. Fluid-filled loops of distal small bowel without distention could indicate gastroenteritis in thecorrect clinical setting. Per Radiology Laboratory: CBC: WBC 15.8 high, otherwise WNL (HGB 15.0, PLT 206) CMP: All WNL (Creatinine 0.84) HCG qualitative urine: Negative Lipase: 174 Interventions: 2013 Iohexol 25 ml PO 2014 sodium chloride 1,000 ml IV 2014 Zofran 4 mg IV 2014 Toradol 30 mg IV 2106 iopamidol 52 ml IV 2108 Sodium chloride 53 ml IV Emergency Department Course: 8:00 PM: I reviewed patient's past medical records and examined the patient. IV inserted, blood drawn. The patient was sent for a CT abdomen pelvis without contrast while in the emergency department, results above. 9:46 PM: Patient reports feeling better after the above interventions. Findings and plan explained to the Patient. Patient discharged home, status improved, with instructions regarding supportive care, medications, and reasons to return as well as the importance of close follow-up was reviewed. Impression & Plan Medical Decision Making: This is a 22 year old female who had vomiting earlier in the week that was due to stomach flu per the patient. She has had some intermittent abdominal pain for 5 days and then an episode lasting for an hour of more severe cramping. She still has some mild mid abdominal pain on exam. The patient is no longer having any vomiting. Initial evaluation shows bloodwork to be normal other than an elevated white count. Urinalysis is negative. CT shows no evidence of diverticulitis, appendicitis, bowel obstruction, but does have some fluid-filled loops in the distal small bowel without distension that could indicate gastroenteritis. At this point her symptoms have improved. She has a nonsurgical abdomen. This may be related to a viral cause. The patient has had a couple loose stools today. If she continues to have loose stools I recommend stool culture. At this point she should be treated symptomatically and follow up with her clinic on Wednesday. She should return for increasing pain, vomiting or fever. Diagnosis: 1. Abdominal pain Rain, Jose Antonio Aldrich, am serving as a scribe on 03/24/13 at 8:00 PM to personally document services performed by Dr. Bhatti based on my observations and the provider's statements to me. Emerita Bhatti MD 03/24/13 [id number] [facility] Stacey Arellano, RN - 03/24/2013 7:44 PM CST Mid abdominal pain since having the stomach flu last week. Tonight pain sharply increased. States My intestines hurt and that her stool has been wierd today but not diarrhea. ABCs intact. Alert and oriented x 3. [facility]IST documented in this encounter Miscellaneous Notes Initial Assessments - Scan, Non-Provider - 03/28/2013 11:40 AM CST [facility] documented in this encounter Plan of Treatment Not on filedocumented as of this encounter Procedures Procedure Name Priority Date/Time Associated Comments Diagnosis CT ABDOMEN PELVIS W STAT 03/24/2013 9:12 PM Re sults for this CONTRAST [facility] procedure are i n the results section. HCG QUALITATIVE URINE STAT 03/24/2013 8:10 PM Results for this [facility] procedure are i n the results section. ROUTINE UA WITH STAT 03/24/2013 8:10 PM Result s for this MICROSCOPIC [facility] procedure are i n the results section. URINE CULTURE Routine 03/24/2013 8:10 PM Results for this [facility] procedure are i n the results section. CBC WITH PLATELETS & STAT 03/24/2013 8:00 PM R esults for this DIFFERENTIAL [facility] procedure are i n the results section. LIPASE STAT 03/24/2013 8:00 PM Results f or this [facility] procedure are i n the results section. COMPREHENSIVE STAT 03/24/2013 8:00 PM Results for this METABOLIC PANEL [facility] procedure ar e in the results section. documented in this encounter Results CT Abdomen Pelvis w Contrast (03/24/2013 9:12 PM [facility]) Anatomical Region Laterality Modality Abdomen/Pelvis, SUBRAD CT BODY, UMP CT ABDOMEN PELVIS Computed Tomography Specimen (Source) Anatomical Location Collection Method / Collectio n Time Received Time / Laterality Volume Impressions 03/24/2013 10:02 PM [facility] IMPRESSION: 1. ??Unremarkable CT abdomen and pelvis with contrast. ??No evidence of diverticulitis. ??Appendix not visualize d but no inflammation is noted about the cecum to suggest acute appendi citis. ??No free pelvic fluid or adnexal mass. 2. ??Fluid-filled loops of distal small bowel without distention could indicate gastroenteritis in the correct clinical setting. NANY CORDERO MD Narrative 03/24/2013 10:02 [address] [facility] CT ABDOMEN AND PELVIS WITH CONTRAST 03/24/2013 9:12 PM HISTORY: ??Mid abdominal pain. TECHNIQUE: ??Axial images from the lung bases to the symphysis are performed with additional coronal reform atted images. ??52 mL of Isovue 370 are given intravenously. ??Oral cont rast is also given. FINDINGS: ??The lung bases are clear. Abdomen: ??The upper abdominal organs ar e within normal limits. ??No hydronephrosis. ??No enlarged lymph node s. ??The bowel is normal in caliber without obstruction. ??Fecal mattie ris is scattered throughout the colon possibly indicating constipation. ??Several fluid-filled loops of distal small bowel are present, but do n ot appear significantly distended to suggest obstruction. ??Claude roenteritis could appear similar. ??Appendix is not visualized. ? ?No inflammation is noted in the right lower quadrant to suggest appendic itis. Pelvis: ??The bladder, uterus, adnexal r egions and rectum are unremarkable. ??No enlarged pelvic lymph nodes or free fluid. ??Bone window examination is within normal limi ts. Procedure Note Nany Cordero MD - 03/24/2013Form atting of this note might be different from the original. CT ABDOMEN AND PELVIS WITH CONTRAST 03/24 9:12 PM HISTORY: Mid abdominal pain. TECHNIQUE: Axial images from the lung ba ses to the symphysis are performed with additional coronal reform atted images. 52 mL of Isovue 370 are given intravenously. Oral contra st is also given. FINDINGS: The lung bases are clear. Abdomen: The upper abdominal organs are within normal limits. No hydronephrosis. No enlarged lymph nodes. The bowel is normal in caliber without obstruction. Fecal debri s is scattered throughout the colon possibly indicating constipation. Several fluid-filled loops of distal small bowel are present, but do n ot appear significantly distended to suggest obstruction. Gastro enteritis could appear similar. Appendix is not visualized. No inflammation is noted in the right lower quadrant to suggest appendic itis. Pelvis: The bladder, uterus, adnexal reg ions and rectum are unremarkable. No enlarged pelvic lymph n odes or free fluid. Bone window examination is within normal limi ts. IMPRESSION IMPRESSION: 1. Unremarkable CT abdomen and pelvis wi th contrast. No evidence of diverticulitis. Appendix not visualized but no inflammation is noted about the cecum to suggest acute appendi citis. No free pelvic fluid or adnexal mass. 2. Fluid-filled loops of distal small ritu wel without distention could indicate gastroenteritis in the correct clinical setting. NANY CORDERO MD Emerita Bhatti MD IMG CT ORDERABLES Urine culture (03/24/2013 8:10 PM [facility]) Component Value Ref Test Analysis Performed At [facility] Range Method Time Signature Specimen Midstream Urine [facility] LAB Special Specimen [facility] Requests received in MICROBIOLOGY preservative Culture Micro No growth [facility] MICROBIOLOGY Micro Report FINAL [facility] Status 03/26/2013 MICROBIOLOGY Specimen Anatomical Collection Method Collection Time Receive d Time (Source) Location / / Volume Laterality 03/24/2013 8:10 PM 4 [facility] 10:20 PM [facility] Emerita Bhatti MD LAB - MICRO GENERAL ORDERABL ES Performing Organization Address City/State/ZIP Code Phon e Number [phone] [place] [address] LAB [facility] MICROBIOLOGY (ABNORMAL) UA with Microscopic (03/24/2013 8:10 PM [facility] SPECIALIST) [facility] [employer] Method Time Signature Color Urine Yellow [facility] Appearance Urine Cloudy [facility] Glucose Urine Negative NEG mg/dL [facility] Bilirubin Urine Negative NEG [facility] Ketones Urine 40 (A) NEG mg/dL [facility] Specific [place] 1.029 1.003 - [place] Urine 1.035 [facility] Blood Urine Negative NEG [facility] pH Urine 6.0 5.0 - 7.0 [place] pH [facility] Protein Albumin 10 (A) NEG mg/dL [facility] LAB Urobilinogen 2.0 0.0 - 2.0 [place] mg/dL mg/dL [facility] Nitrite Urine Negative NEG [facility] Leukocyte Negative NEG [place] Esterase Urine [facility] Source Midstream [place] Urine [facility] WBC Urine 0 0 - 2 [facility] RBC Urine 0 0 - 2 [facility] Bacteria Urine Many (A) NEG /HPF [facility] Squamous 2 (H) 0 - 1 [place] Epithelial /HPF /HPF [facility] Mucous Urine Present (A) NEG /LPF [facility] Amorphous Many (A) NEG /HPF [place] Crystals [facility] Specimen Anatomical Collection Method Collection Time Receive d Time (Source) Location / / Volume Laterality Urine specimen URINE SPECIMEN 03/24/2013 8:10 PM 03/24 9:51 (specimen) OBTAINED BY CLEAN [facility] PM [facility] CATCH PROCEDURE / Unknown Emerita Bhatti MD LAB - URINE ORDERABLES Performing Organization Address City/[facility] Phon e Number M [facility] [address] [place], [place] [address] [phone] [place] [address] LAB HCG qualitative urine (03/24/2013 8:10 PM [facility] SPECIALIST) P athologist Signature HCG Qual Urine Negative NEG [facility] Specimen Anatomical Collection Method Collection Time Receive d Time (Source) Location / / Volume Laterality Urine specimen URINE SPECIMEN 03/24/2013 8:10 PM 03/24 8:26 (specimen) OBTAINED BY CLEAN [facility]ION SPECIALIST PM [facility]ION SPECIALIST CATCH PROCEDURE / Unknown Emerita Bhatti MD LAB - URINE ORDERABLES Performing Organization Address City/[facility]/ZIP [facility] Phon e Number M [facility] [address] [place], [place] [address] [facility] LAB Lipase (03/24/2013 8:00 PM [facility] SPECIALIST) P athologist Signature Lipase 174 20 - 250 [facility] Specimen Anatomical Collection Method Collection Time Receive d Time (Source) Location / / Volume Laterality Blood specimen 03/24/2013 8:00 PM 014 8:08 (specimen) [facility]IST PM [facility] SPECIALIST Emerita Bhatti MD LAB - BLOOD ORDERABLES Performing Organization Address City/[facility] Phon e Number M [facility] [address] [place], [place] [address] [facility] Comprehensive metabolic panel (03/24/2013 8:00 PM [facility] EXTENSION SPECIALIST) P athologist Signature Sodium 141 133 - 144 [place] mmol/L [facility] Potassium 3.6 3.4 - 5.3 [place] mmol/L [facility] Chloride 101 94 - 109 [place] mmol/L [facility] Carbon Dioxide 29 20 - 32 [place] mmol/L [facility] Anion Gap 12 6 - 17 [place] mmol/L [facility] Glucose 83 60 - 99 [place] mg/dL [facility] Urea Nitrogen 13 5 - 24 [place] mg/dL [facility] Creatinine 0.84 0.52 [facility]04 mg/dL [facility] GFR Estimate 84 >60 [place] mL/min/1.[address] [place] [address] LAB GFR Estimate If >90 >60 [place] Black mL/min/1.[address] [place] [address] LAB Calcium 9.4 8.5 - 10.4 [place] mg/dL [facility] Bilirubin Total 0.6 0.2 - 1.3 [place] mg/dL [facility] Albumin 4.3 3.9 - 5.1 [place] g/dL [facility] Protein Total 8.0 6.8 - 8.8 [place] g/dL [facility] Alkaline 52 40 - 150 [place] Phosphatase U/L [facility] ALT 50 0 - 50 U/L [facility] AST 26 0 - 45 U/L [facility] Specimen Anatomical Collection Method Collection Time Receive d Time (Source) Location / / Volume Laterality Blood specimen 03/24/2013 8:00 PM 014 8:08 (specimen) [facility] EXTENSION SPECIALIST PM [facility] EXTENSION SPECIALIST Emerita Bhatti MD LAB - BLOOD ORDERABLES Performing Organization Address City/State/ZIP Code Phon arnold Cruz [facility] [address], [place] [address] [facility] (ABNORMAL) CBC with platelets differential (03/24/2013 8:00 PM [facility]ERS[facility] EXTENSION SPECIALIST) Patholo gist Method Time Signature WBC 15.8 (H) 4.0 - [place] 11.0 [facility] RBC Count 4.99 3.8 - 5.2 [place] 10e12/L [facility] Hemoglobin 15.0 11.7 - [place] 15.7 g/dL [facility] Hematocrit 42.8 35.0 - [place] 47.0 % [facility] MCV 86 78 - 100 [place] fl [facility] MCH 30.1 26.5 - [place] 33.0 pg [facility] MCHC 35.0 31.5 - [place] 36.5 g/dL [facility] RDW 12.6 10.0 - [place] 15.0 % [facility] Platelet Count 206 150 - [address] LAB Diff Method Automated [facility] LAB % Neutrophils 77.2 % [facility] % Lymphocytes 16.1 % [facility] % Monocytes 6.3 % [facility] % Eosinophils 0.2 % [facility] % Basophils 0.1 % [facility] % Immature 0.1 % [place] Granulocytes [facility] Absolute 12.2 (H) 1.6 - 8.3 [place] Neutrophil [facility] Absolute 2.6 0.8 - 5.3 [place] Lymphocytes [address] [place] [address] LAB Absolute 1.0 0.0 - 1.3 [place] Monocytes [address] [place] [address] LAB Absolute 0.0 0.0 - 0.7 [place] Eosinophils [address] LAB Absolute 0.0 0.0 - 0.2 [place] Basophils [address] [place] [address] LAB Abs Immature 0.0 0 - 0.4 [place] Granulocytes [address] [place] [address] LAB Specimen Anatomical Collection Method Collection Time Receive d Time (Source) Location / / Volume Laterality Blood specimen 03/24/2013 8:00 PM 014 8:08 (specimen) UNIVERSITY EXTENSION SPECIALIST PM [facility]IVERS[facility] EXTENSION SPECIALIST Emerita Bhatti MD LAB - BLOOD ORDERABLES Performing Organization Address City/State/ZIP Code Phon e Number M [facility] [address], [place] [address] [phone] [place] [address] LAB documented in this encounter Visit Diagnoses Diagnosis Abdominal pain - Primary Abdominal pain, unspecified site documented in this encounter Administered Medications Inactive Administered Medications - up to 3 most recent administrations Medication Order MAR Action Action Date Dose Rate Site iohexol (OMNIPAQUE) 140 mg/mL Given 03/24/2013 8:14 PM UNIVERSITY EXTENSION SPECIALIST 25 mL s solution 25 mL 25 mL, Oral, EVERY 30 MIN, First dose on Wed03/24/13 at 2015, For 2 doses, Dilute 50 mL contrast into 600mL of water/juice/soda to make a total of 650mL. Give age appropriate amount, half the total volume now and half in 30 minutes so all fluid is in by CT in 60 minutes. 0-6 mo: 100mL total fluid 6 mo-1 yr: 150 mL total fluid 1-3 yrs: 200 mL total fluid 3-6 yrs: 250 mL total fluid 6-8 yrs: 300 mL total fluid 8-10 yrs: 400 mL total fluid 10-16 yrs: 500 mL total fluid 16 yrs- adult: 650 mL total fluid iopamidol (ISOVUE-370) 76% solution 500 mL Given 03/24/2013 9:07 PM UNIVERSITY EXTENSION SPECIALIST 52 mLs 500 mL, Intravenous, ONCE, On Wed03/24/13 at 2100, For 1 dose ketorolac (TORADOL) injection 30 mg Given 03/24/2013 8:15 PM UNIVERSITY EXTENSION SPECIALIST 30 mg 30 mg, Intravenous, ONCE, On Wed03/24/13 at 2015, For 1 dose, Do not give within 6 hours of Ibuprofen. ondansetron (ZOFRAN) injection 4 mg Given 03/24/2013 8:15 PM UNIVERSITY EXTENSION SPECIALIST 4 mg 4 mg, Intravenous, EVERY 30 MIN PRN, nausea, vomiting, Administer over 2-5 Minutes, Starting on Wed03/24/13 at 2001, For 3 doses, May repeat in 30 minutes as needed, up to 3 doses. sodium chloride 0.9 % BOLUS New Bag 03/24/2013 8:15 PM UNIVERSITY EXTENSION SPECIALIST 1,000 m Ls 1000 mL/hr 1,000 mL Intravenous, 1,000 mL, ONCE, at 1,000 mL/hr, Administer over 1 Hours, On Wed03/24/13 at 2015, For 1 dose sodium chloride 0.9 % BOLUS 1,000 mL New Bag 03/24/2013 9:09 PM UNIVERSITY EXTENSION SPECIALIST 53 mLs Intravenous, 1,000 mL, ONCE, On Wed03/24/13 at 2100, For 1 dose documented in this encounter Active and Recently Administered Medications Times are shown in UNIVERSITY EXTENSION SPECIALIST. Scheduled Medication Order 03/22/2013 03/23/2013 03/24/2013 iohexol (OMNIPAQUE) 140 mg/mL solution 25 mL () 2013 (Given - Provider: Jill Taylor RN)2044 (Due) 25 mL, Oral, EVERY 30 MIN, First dose on Wed03/24/13 at 2014, For 2 doses, Dilute 50 mL contrast into 600mL of water/juice/soda to make a total of 650mL. Give age appropriate amount, half the total volu me now and half in 30 minutes so all flu id is in by CT in 60 minutes. 0-6 mo: 100mL total fluid 6 mo-1 yr: 150 mL total fluid 1-3 yrs: 200 mL total fluid 3-6 yrs: 250 mL total fluid 6-8 yrs: 300 mL tota l fluid 8-10 yrs: 400 mL total fluid 10- 16 yrs: 500 mL total fluid 16 yrs- adult: 650 mL total fluid iopamidol (ISOVUE-370) 76% solution 500 mL (COMPLETED) 2106 (Given - Provider: Teresa Faustin - Comment: bulk) 500 mL, Intravenous, ONCE, On Wed03/24/13 at 2100, For 1 dose ketorolac (TORADOL) injection 30 mg (COMPLETED) 2014 (Given - Provider: Jill Taylor RN) 30 mg, Intravenous, ONCE, On Wed03/24/13 at 2014, For 1 dose, Do not give within 6 hours of Ibuprofen. sodium chloride 0.9 % BOLUS 1,000 mL (COMPLETED) 2014 (New Bag - Provider: Jill Taylor RN)2150 (Stopped - Provider: Jill Taylor RN) Intravenous, 1,000 mL, ONCE, at 1,000 mL /hr, Administer over 1 Hours, On Wed03/24/13 at 2014, For 1 dose sodium chloride 0.9 % BOLUS 1,000 mL (COMPLETED) 2108 (New Bag - Provider: Teresa Faustin - Comment: bulk)2110 (Stopped - Provider: Teresa Faustin) Intravenous, 1,000 mL, ONCE, On Wed03/24/13 at 2100, For 1 dose PRN Medication Order 03/22/2013 03/23/2013 03/24/2013 ondansetron (ZOFRAN) injection 4 mg (CANCELED) 2014 (Given - Provider: Jill Taylor RN) 4 mg, Intravenous, EVERY 30 MIN PRN, mohamud sea, vomiting, for 2 Minutes, Starting 03/24/13 at 2002, For 3 doses, May repeat in 30 minutes as needed, up to 3 doses. documented in this encounter Care Teams Chief Investment Officer Relationship Specialty Start Date End Date Jayson Lombardo MD PCP - General Family Practice 03/24/13 documented as of this encounter
--- OUTSIDE RECORDS SUMMARY | 2022-01-19 15:22 | XMS_ITS | Encounter Summary ---
:1990 Author Organization [facility] Address [address] [place] [address] Care Team Providers Name Role Phone Chela Servin PA-C Primary Care Provider [phone] Reason for Visit (Routine) - Closed Specialty Diagnoses / Procedures Referred By Contact Refer red To Contact Radiology / Radiology. Diagnoses R#N/A,Epic,no creat,sb pt. Rh Ct Scan Procedures CT CHEST W [address] [place] [address] Phone: Fax: Referral ID Status Reason Start Date Expiration Date Visits Requ ested Visits Authorized [id number] Closed 02/07/2013 02/07/2014 1 1 Encounter Details Date Type Department Care Team Description 02/08/2013 Hospital Encounter [facility] Jayson Lombardo Dys pnea; Arleen Echeverria MD Pleuritic chest pain [address] [place] [address] Social History Tobacco Use Types Packs/Day Years Used Date Smoking Tobacco: Never Smokeless Tobacco: Never Alcohol Use Standard Drinks/Week Comments Yes 0 (1 standard drink = 0.6 oz pure alcoho l) Sex Assigned at Date Recorded Female 05/29/2020 7:33 PM CDT documented as of this encounter Medications at Time of Discharge [...] max 2/day; documented as of this encounter Miscellaneous Notes Initial Assessments - Scan, Non-Provider - 02/13/2013 6:52 AM CST [employer] documented in this encounter Plan of Treatment Not on filedocumented as of this encounter Procedures Procedure Name Priority Date/Time Associated Diagnosis Comme nts CT CHEST W CONTRAST Routine 02/08/2013 5:04 PM Dyspnea Results for this [facility] [employer] Pleuritic chest pain procedu re are in the results section. documented in this encounter Results CT Chest w Contrast (02/08/2013 5:04 PM [employer] [employer]OP[employer]) Anatomical Region Laterality Modality Chest, SUBRAD CT BODY, UMP CT CHEST Comp uted Tomography Specimen (Source) Anatomical Location Collection Method / Collectio n Time Received Time / Laterality Volume Impressions 02/08/2013 7:58 PM [employer]OP[employer] IMPRESSION: 1. ??No evidence of pulmonary embolism. ??Thoracic aorta is unremarkable. 2. ??Lungs are clear. ??No enlarged lymp h nodes. NANY CORDERO MD Narrative 02/08/2013 7:58 PM [facility] [employer] CT CHEST WITH CONTRAST 02/08/2013 5:04 PM HISTORY: Chest pain and shortness of noreen ath with history of pneumothorax and prior wedge resection. TECHNIQUE: Thin section axial images are performed from the thoracic inlet to the lung bases utilizing 67 mL of Isovue 370 IV contrast without adverse event. Coronal reformatt ed images are also generated. FINDINGS: Chest: Postsurgical changes are noted in the posterior left upper lung. ??Lungs are otherwise clear. ??No evidence of pneumothorax. ??No infiltrate or lung consolidation. ??No p leural or pericardial fluid. Heart is normal in size. ??The esophagus is unremarkable. ??There are no enlarged lymph nodes. ??There is no evid ence of pulmonary embolism. Thoracic aorta is unremarkable. ??Limite d images upper abdomen are within normal limits. ??Bone window exam ination is unremarkable. Procedure Note Nany Cordero MD - 02/08/2013Form atting of this note might be different from the original. CT CHEST WITH CONTRAST 02/08/2013 5:04 P M HISTORY: Chest pain and shortness of noreen ath with history of pneumothorax and prior wedge resection. TECHNIQUE: Thin section axial images are performed from the thoracic inlet to the lung bases utilizing 67 mL of Isovue 370 IV contrast without adverse event. Coronal reformatt ed images are also generated. FINDINGS: Chest: Postsurgical changes are noted in the posterior left upper lung. Lungs are otherwise clear. No evid ence of pneumothorax. No infiltrate or lung consolidation. No ple ural or pericardial fluid. Heart is normal in size. The esophagus i s unremarkable. There are no enlarged lymph nodes. There is no eviden ce of pulmonary embolism. Thoracic aorta is unremarkable. Limited images upper abdomen are within normal limits. Bone window examin ation is unremarkable. IMPRESSION IMPRESSION: 1. No evidence of pulmonary embolism. Th oracic aorta is unremarkable. 2. Lungs are clear. No enlarged lymph no aj. NANY CORDERO MD Jayson Lombardo MD IMG CT ORDERABLES documented in this encounter Visit Diagnoses Diagnosis Dyspnea Other dyspnea and respiratory abnormalit y Pleuritic chest pain Painful respiration documented in this encounter Administered Medications Inactive Administered Medications - up to 3 most recent administrations Medication Order MAR Action Action Date Dose Rate Site iopamidol (ISOVUE-370) 76% Given 02/08/2013 5:02 PM [facility] [employer] 67 mLs solution 500 mL 500 mL, Intravenous, ONCE, On Wed02/08/13 at 1700, For 1 dose sodium chloride 0.9 % BOLUS 1,000 mL New Bag 02/08/2013 5:02 PM [facility] [employer] 75 mLs Intravenous, 1,000 mL, ONCE, On Wed02/08/13 at 1700, For 1 dose documented in this encounter Care Teams Geospatial Technician Relationship Specialty Start Date End Date Aasebjose-Chela Engel PA-C PCP - General Family Practice 08/05/10 03/23/13 [address] [place] [address] documented as of this encounter
--- OUTSIDE RECORDS SUMMARY | 2022-01-19 15:22 | XMS_ITS | Encounter Summary ---
:1990 Author Organization [facility] Address [address] [place] [address] Care Team Providers Name Role Phone Jayson Lombardo MD Primary Care Provider Unavailable Reason for Visit Reason Comments Triage Extreme lower ABD pain onset today after 1 week of slight ABD discomfort, sent to [facility] per Dr. Colon . Encounter Details Date Type Department Care Team Description 03/24/2013 Office Visit [facility] SIS NOT YET DEFINED Care (Primary Dx) [address] [place] [address] Social History Tobacco Use Types Packs/Day Years Used Date Smoking Tobacco: Never Smokeless Tobacco: Never Alcohol Use Standard Drinks/Week Comments Yes 0 (1 standard drink = 0.6 oz pure alcoho l) Sex Assigned at Date Recorded Female 05/29/2020 7:33 PM CDT documented as of this encounter Last Filed Vital Signs Vital Sign Reading Time Taken Comments Blood Pressure 104/70 03/24/2013 7:16 PM INSIDE ACCOUNT EXECUTIVE Pulse 90 03/24/2013 7:16 PM INSIDE ACCOUNT EXECUTIVE Temperature 36.9 ??C (98.5 ??F) 03/24/2013 7:16 PM INSIDE ACCOUNT EXECUTIVE Respiratory Rate - - Oxygen Saturation 97% 03/24/2013 7:16 PM INSIDE ACCOUNT EXECUTIVE Inhaled Oxygen Concentration - - Weight 47.6 kg (105 lb) 03/24/2013 7:16 PM INSIDE ACCOUNT EXECUTIVE Height - - Body Mass Index 16.45 01/05/2013 8:06 AM CDT documented in this encounter Progress Notes Nidia Diaz MD - 04/28/2013 3:47 PM CST See nurse note DE ACCOUNT EXECUTIVE documented in this encounter Nursing Notes 03/24/2013 7:00 PM CST >> ASTER JEROME WedMar 24, 2013 7:21 PM Last Wednesday night ( 1 week ) ago had emesis at night, since then slight lower ABD pain with the exception of today with sudden extreme lower ABD cramping. Pt rated the pain at an 8 today, while cramping was going on. Pt is not experiencing extreme ABD pain at the moment but is having discomfort,pain rate at a 2. No changes in urine, bowel has been irregular. Per pt needs to go to ER for US, told pt she has the option of the UR for convience purposes. Aster Jerome MA >> SATER JEROME WedMar 24, 2013 7:17 PM Patient presents with: Triage - Extreme lower ABD pain onset today after 1 week of slight ABD discomfort, sent to [facility] per Dr. Colon. Last Wednesday night emeis Initial BP 104/70 Pulse 90 Temp 98.5 ??F (36.9 ??C) (Oral) Wt 105 lb (47.628 kg) SpO2 97% Estimated Body mass index is 16.44 kg/(m^2) as calculated from the following: Height as of 13: 5' 7(1.702 m). Weight as of this encounter: 105 lb(47.628 kg). BP completed using cuff size: regular Aster Jerome MA documented in this encounter Plan of Treatment Not on filedocumented as of this encounter Visit Diagnoses Diagnosis DIAGNOSIS NOT YET DEFINED - Primary documented in this encounter Care Teams Quality Systems Technician Relationship Specialty Start Date End Date Jayson Lombardo MD PCP - General Family Practice 03/24/13 documented as of this encounter
--- OUTSIDE RECORDS SUMMARY | 2022-01-19 15:22 | XMS_ITS | Encounter Summary ---
:1990 Author Organization [facility] Address [address] [place] [address] Care Team Providers Name Role Phone Chela Servin PA-C Primary Care Provider Jayson Lombardo MD Primary Care Provider Unavailable Jayson Lombardo MD Unavailable Unavailable Jayson Lombardo MD Unavailable Unavailable Encounter Details Date Type Department Care Team Description 08/23/2012 Historic Results [facility] Heart Unknown, [address] [address] Social History Tobacco Use Types Packs/Day Years Used Date Smoking Tobacco: Never Smokeless Tobacco: Never Alcohol Use Standard Drinks/Week Comments No 0 (1 standard drink = 0.6 oz pure alcoho l) Sex Assigned at Date Recorded Female 05/29/2020 7:33 PM CDT documented as of this encounter Plan of Treatment Not on filedocumented as of this encounter Procedures Procedure Name Priority Date/Time Associated Diagnosis Comme nts ECHO CARDIAC - HIM SCAN 08/23/2012 12:00 AM CDT - ARCHIVE documented in this encounter Results ECHO CARDIAC - HIM SCAN - ARCHIVE (08/23/2012 12:00 AM CDT) Anatomical Region Laterality Modality Echocardiography Specimen (Source) Anatomical Location Collection Method / Collectio n Time Received Time / Laterality Volume 08/23/2012 Narrative This result has an attachment that is no t available. Provider Scan CV ECHO ORDERABLES documented in this encounter Visit Diagnoses Not on filedocumented in this encounter Care Teams Transport Engineer Relationship Specialty Start Date End Date Chela Servin, PCP - General Family Practice 08/05/10 03/23/13 [address] [place] [address] Jayson Lombardo MD PCP - General Family Practice 03/24/13 Jayson Lombardo MD PCP - Assigned PCP 08/12/14 05/17/18 Jayson Lombardo MD Assigned PCP 08/12/14 04/20/20 documented as of this encounter
--- OUTSIDE RECORDS SUMMARY | 2022-01-19 15:22 | XMS_ITS | Encounter Summary ---
:1990 Author Organization [facility] Address [address] [place] [address]. [place] [address] Care Team Providers Name Role Phone Chela Servin PA-C Primary Care Provider [phone] Reason for Visit Auth/Cert - Closed Specialty Diagnoses / Procedures Referred By Contact Refer red To Contact Surgery Diagnoses Left Pneumothorax Sh Periop Services Procedures THORACOSCOPIC WEDGE RESECTION LUNG [address] [place] [phone] Phone: Referral ID Status Reason Start Date Expiration Date Visits Requ ested Visits Authorized [id number] Closed 12/19/2010 06/17/2011 1 1 Encounter Details Date Type Department Care Team Description 12/20/2010 Surgery [facility] Demetris Raymond Left Vid eo Assisted [place] [facility] MD [place] Thoracoscopy, Apical Services [place] [facility] Blebectomy [address], [address] [place] [phone] [place] [id number] (Wo rk) Surgery Details Date/Time Status Location OR Service Patient Case Class Case Tr auma Class Type Case? 12/20/10 9:00 Posted SH OR OR M 40 General Surgery AM Admit Panel 1 Procedure LRB Anes Op Region Wound Class Commen ts Left Video Assisted Left General Chest I-Clean Left Video Assisted Thoracoscopy, Apical Thor acoscopy, Apical Blebectomy Blebectomy Surgeon Surgeon Role Service Panel Demetris Raymond MD Primary General 1 documented in this encounter Social History Tobacco Use Types Packs/Day Years Used Date Smoking Tobacco: Never Smokeless Tobacco: Never Alcohol Use Standard Drinks/Week Comments No 0 (1 standard drink = 0.6 oz pure alcoho l) Sex Assigned at Date Recorded Female 05/29/2020 7:33 PM CDT documented as of this encounter Last Filed Vital Signs Vital Sign Reading Time Taken Comments Blood Pressure 117/69 12/23/2010 11:54 AM CDT Pulse 62 12/21/2010 12:00 AM CDT Temperature 36.8 ??C (98.2 ??F) 12/23/2010 11:54 AM CDT Respiratory Rate 16 12/23/2010 11:54 AM CDT Oxygen Saturation 98% 12/23/2010 11:54 AM CDT Inhaled Oxygen Concentration - - Weight 49 kg (108 lb 0.4 oz) 12/20/2010 7:56 AM CDT Height - - Body Mass Index 16.67 12/12/2010 3:06 PM CDT documented in this encounter Discharge Summaries Constance Duval PA-C - 12/23/2010 2:25 PM CDT FINAL DIAGNOSIS: Left spontaneous pneumothorax. OPERATIVE PROCEDURE PERFORMED: On 12/20/2010, Dr. Demetris Raymond performed a left video-assisted thoracoscopy with apical blebectomy at [facility]. HOSPITAL COURSE: John George is a 20-year-old woman who was diagnosed with a left spontaneous pneumothorax. A chest tube was placed. Despite adequate reexpansion of her left lung, there was an ongoing air leak. Her chest CT scan showed a bleb in the apex of the left upper lobe lung. Based on these findings, a video-assisted thoracoscopy was indicated for definitive treatment. John underwent the above-named procedures without complication on 12/20/2010. She had a benign postoperative course and was kept in the hospital 3 days with her chest tube to constant wall suction. Her lung remained expanded on her daily chest x-rays. She had no evidence of postoperative bleeding elissa air leak to her chest tube. She had good pain control and remained afebrile with stable vital signs throughout her stay. She was able to have her chest tube discontinued at the bedside on postoperative day #3. She was given full instructions regarding discharge medications, pain control, activity level and followup. She will be seen by Constance Duval PA-C, with a chest x-ray in 1 week's time but was encouraged to call with any concerns or questions in the meanwhile. DEMETRIS RAYMOND MD As dictated by FREDI GUERRIER MT: as Name: JOHN GEORGE Account: [id number] : 1990 Admit Date: [id number] Discharge Date: 12/23/2010 Document: [id number] documented in this encounter Discharge Instructions Discharge InstructionsGlory Arreola RN - 12/23/2010 12:15 PM CDT Refer to discharge written order video assisted thoracoscopy documented in this encounter Medications at Time of Discharge Medication Sig Dispensed Refills Start Date End Date cephALEXin (KEFLEX) 500 Take 1 capsule by 28 capsule 0 12/1812/25/2010 MG capsule mouth 4 times daily for 7 days. hydrocodone-acetaminophe Take 1-2 tablets by 30 tablet 0 09/10/2011 n 5-325 MG per mouth every 6 hours tabletIndications: as needed. Irregular menstrual cycle ibuprofen (ADVIL,MOTRIN) Take 1 tablet by 30 tablet 0 12/2309/10/2011 600 MG mouth every 6 hours tabletIndications: as needed Irregular menstrual (inflammatory pain). cycle levonorgestrel-ethinyl Take 1 tablet by 3 Package 3 2 011 07/18/2011 estradiol (AVIANE) mouth daily. 0.1-20 MG-MCG per tabletIndications: Irregular menstrual cycle documented as of this encounter Progress Notes Demetris Raymond MD - 02/06/2011 2:23 PM BUSINESS BANKING REPRESENTATIVE NESS BANKING REPRESENTATIVE Constance Duval PA-C - 12/23/2010 8:59 AM CDT Thoracic Surgery: BP 110/65 Pulse 62 Temp(Src) 98.1 ??F (36.7 ??C) (Oral) Resp 16 Wt 49 kg (108 lb 0.4 oz) SpO2 99% LMP 12/10/2010 CXR: No PTX S: Pt. Doing well. Full instructed. O: CT: No air leak, CT DCed P: DC home. Constance Duval PA-C Pager Constance Duval PA-C - 12/22/2010 8:15 AM CDT Thoracic Surgery: BP 112/70 Pulse 62 Temp(Src) 98 ??F (36.7 ??C) (Oral) Resp 16 Wt 49 kg (108 lb 0.4 oz) SpO2 98% LMP 12/10/2010 Intake/Output Summary (Last 24 hours) at 12/22/10 0815 Last data filed at 12/22/10 0600 Gross per 24 hour Intake 0 ml Output 400 ml Net -400 ml S: Patient had nausea yesterday-- better now. No SOB or severe pain. No BM. Passing flatus. Discussed CT mgmt. O: CT: No air leak, no bleeding P: Clamp CT tonight. Anticipate DC tomorrow. Constance Duval PA-C Pager CXR: Small L apical PTX-- improving Demetris Raymond MD - 12/21/2010 8:10 AM CDT THORACIC SURGERY Doing well. AVSS no air leak, no bleeding CXR: Small apical ptx Satisfactory DEMETRIS RAYMOND MD [facility] THORACIC SURGERY CELL: OFFICE: documented in this encounter H&P Notes Linda Moreira - 12/19/2010 12:29 PM CDT tHIS NOTE IS FOR THE PURPOSE OF MAKING THE h & p PERFORMED IN CLINIC WITHIN THE LAST 30 DAYS AVAILABLE IN THE HOSPITAL SURGICAL ENCOUNTER Source Note - Demetris Raymond MD - 12/19/2010 12:27 PM CDT Demetris Raymond MD - 12/19/2010 12:27 PM CDT documented in this encounter Nursing Notes Nadira Leigh RN - 12/20/2010 11:42 AM CDT Report to RN and transferred to 329 per cart and NA. Nadira Leigh RN - 12/20/2010 11:30 AM CDT Clothing bag with pt on cart. Bianca Blackburn RN - 12/20/2010 8:12 AM CDT Ancef 1 gram sent to or documented in this encounter OR Notes OR Anesthesia - Demetris Raymond MD - 02/06/2011 2:19 PM BUSINESS BANKING REPRESENTATIVE NESS BANKING REPRESENTATIVE documented in this encounter Miscellaneous Notes Plan of Care - Glory Arreola RN - 12/23/2010 3:36 PM CDT Problem: IP GENERAL POC-ADULT,OB,BEHAVIORAL FVCPM Goal: Individualization/Patient-Specific Goal (Adult,OB,Behavioral RN: 12/20/10 Left video assisted thorascopy with apical blebectomy Outcome: Improving 12/23/[address] dressing dry and intact. Discharge instructions given to pt and mother. Rxs filled . Denies questions . Discharged per w/c Plan of Care - Rosario Klein RN - 12/23/2010 6:47 AM CDT Problem: IP GENERAL POC-ADULT,OB,BEHAVIORAL FVCPM Goal: Individualization/Patient-Specific Goal (Adult,OB,Behavioral RN: 12/20/10 Left video assisted thorascopy with apical blebectomy Outcome: Improving Chest tube clamped at midnight, patient tolerated well. Plan of Care - Glory Arreola RN - 12/22/2010 3:53 PM CDT Problem: IP GENERAL POC-ADULT,OB,BEHAVIORAL FVCPM Goal: Individualization/Patient-Specific Goal (Adult,OB,Behavioral The patient and/or their new accounts representative will achieve their patient-specific goals related to the plan of care. The patient-specific goals include: RN: 12/20/10 Left video assisted thorascopy with apical blebectomy Outcome: Improving Chest tube remains patent, will clamp tonight. Possible CT removal tomorrow and discharge Plan of Care - Marine Burris RN - 12/22/2010 7:58 AM CDT Problem: IP GENERAL POC-ADULT,OB,BEHAVIORAL FVCPM Goal: Individualization/Patient-Specific Goal (Adult,OB,Behavioral The patient and/or their new accounts representative will achieve their patient-specific goals related to the plan of care. The patient-specific goals include: RN: 12/20/10 Left video assisted thorascopy with apical blebectomy Outcome: No Change Pt A&O. VSS. Afebrile. CT dressing clean, dry, and intact. CT set to 20 suction 20cc serosanguinous output. Crepitus audible. CT leak with cough. Pain controlled. No Nausea. Plan of Care - Lizbet Marinelli RN - 12/21/2010 4:15 PM CDT Problem: Lung Surgery (via Thoracotomy) (Adult) Goal: Prevent/Manage Potential Problems Signs and symptoms of listed problems will be absent or manageable. Outcome: No Change Pt reports was started on oxycodone prn for pain and makes her nauseated this medication she states made her sick at home also when on this med Dr. Kuhn called and new order for vicodin prn obtained Plan of Care - Aspen Tom RN - 12/21/2010 6:14 AM CDT Problem: IP GENERAL POC-ADULT,OB,BEHAVIORAL FVCPM Goal: Individualization/Patient-Specific Goal (Adult,OB,Behavioral The patient and/or their new accounts representative will achieve their patient-specific goals related to the plan of care. The patient-specific goals include: RN: 12/20/10 Left video assisted thorascopy with apical blebectomy Outcome: Improving VSS, sats 98-100% on RA. Taking oxycodone for pain. UP with SBA in room. Chest tube with air leak; treatment team aware. Tolerating diet. Passing flatus, no BM. Plan of Care - Sangeetha Martinez RN - 12/20/2010 9:28 PM CDT Problem: IP GENERAL POC-ADULT,OB,BEHAVIORAL FVCPM Goal: Individualization/Patient-Specific Goal (Adult,OB,Behavioral The patient and/or their new accounts representative will achieve their patient-specific goals related to the plan of care. The patient-specific goals include: RN: 12/20/10 Left video assisted thorascopy with apical blebectomy Outcome: Improving Patient tolerated diet, ambulates to bathroom well and sat in chair x2 with S.B.A. Provider Notification - Sangeetha Martinez RN - 12/20/2010 6:[address] Jones notified of new air leak in patient's chest tube. No new orders. Op Note - Demetris Raymond MD - 12/20/2010 9:51 AM CDT PREOPERATIVE DIAGNOSIS: Left spontaneous pneumothorax. POSTOPERATIVE DIAGNOSIS: Left spontaneous pneumothorax. PROCEDURE: Left video-assisted thoracoscopy with apical blebectomy. ANESTHESIA: General with double-lumen endotracheal tube. INDICATIONS: John is a 20-year-old woman who was diagnosed with left spontaneous pneumothorax. A chest tube was placed. Despite adequate re-expansion of the left lung, there was an ongoing air leak. The CT scan shows a bleb the apex of the left upper lobe lung. Based on the findings, a video-assisted thoracoscopy is indicated for definitive treatment. DESCRIPTION OF PROCEDURE: The patient was brought to the operating room and placed in a supine position. Under general anesthesia with double-lumen endotracheal tube, the patient was placed in the right lateral decubitus position. The ventilation of left lung was discontinued. The chest tube was removed. The left chest was prepared and draped in the usual fashion using DuraPrep. Three thoracoscopic incisions were made in the usual fashion. On examination, there is a very small amount of serous fluid. Careful examination of the lung was completely done. At the apex, there was a bleb which was easily identified. This was a partially collapsed and was surrounded by some inflammatory changes. Otherwise, examination was normal. Using multiple applications of [place] 45 mm stapling device, a blebectomywas performed. The staple line was hemostatic. Specimen was sent for permanent section. There was already some inflammatory changes from the chest tube. Thirty cc of Marcaine 0.5% without epinephrine was injected as intercostal blocks. Through a separate stab wound, a 28 straight chest tube was placed with the tip directed toward apex posteriorly and sutured to the skin with #2 silk suture. Three thoracoscopic incisions were closed in the usual fashion. Estimated blood loss minimal. Needle and sponge counts correct. DEMETRIS RAYMOND MD MT: [id number] Name: JOHN GEORGE MRN: [id number] Account: [id number] : 1990 Procedure Date: 12/20/2010 Document: [id number] Brief Op Note - Demetris Raymond MD - 12/20/2010 9:45 AM CDT [facility] Thoracic Surgery Brief Operative Note Pre-operative diagnosis: Left Pneumothorax Post-operative diagnosis SAME Procedure: Procedure(s): LEFT VATS APICAL BLEBECTOMY Surgeon: DEMETRIS RAYMOND MD Assistants(s): NONE Anesthesia: General Estimated blood loss: MINIMAL Drains: Chest tube 28 FR X 1 Specimens: LEFT APICAL BLEBS Implants: NONE Findings: BLEB APEX ANJANA LUNG Complications: None Condition: Stable Comments: See dictated operative report for full details documented in this encounter Plan of Treatment Not on filedocumented as of this encounter Procedures Procedure Name Priority Date/Time Associated Diagnosis Comme nts XR CHEST PORT 1 VIEW Routine 12/23/2010 4:35 Resu lts for this AM CDT procedure are i n the results section. XR CHEST PORT 1 VIEW Routine 12/22/2010 5:15 Resu lts for this AM CDT procedure are i n the results section. XR CHEST PORT 1 VIEW Routine 12/21/2010 5:15 Resu lts for this AM CDT procedure are i n the results section. XR CHEST PORT 1 VIEW STAT 12/20/2010 10:30 Res ults for this AM CDT procedure are i n the results section. SURGICAL PATHOLOGY Routine 12/20/2010 9:27 Result s for this EXAM AM CDT procedure are i n the results section. WEDGE RESECTION, LUNG, 12/20/2010 8:33 Left Pneumothor ax THORACOSCOPIC AM CDT HEMOGLOBIN STAT 12/20/2010 8:12 Results for this AM CDT procedure are i n the results section. documented in this encounter Results X-ray Chest 1 vw port (12/23/2010 4:35 AM CDT) Anatomical Region Laterality Modality Chest Other Specimen (Source) Anatomical Collection Method Collection Time Re ceived Time Location / / Volume Laterality 12/23/2010 4:35 AM CDT Impressions 12/23/2010 8:03 AM CDT CHEST, PORTABLE SITTING ?? Dec 23, 2010 4:35:00 AM ?? HISTORY: ??Left pneumothorax COMPARISON: 12/22/2010 FINDINGS: Left thoracostomy tube unchang ed. Small left apical pneumothorax, unchanged. Heart size is n ormal. Lungs otherwise clear. IMPRESSION: Small left apical pneumothor ax unchanged. Demetris Raymond MD [facility] X-ray Chest 1 vw port (12/22/2010 5:15 AM CDT) Anatomical Region Laterality Modality Chest Other Specimen (Source) Anatomical Collection Method Collection Time Re ceived Time Location / / Volume Laterality 12/22/2010 5:15 AM CDT Impressions 12/22/2010 8:14 AM CDT CHEST 1VIEW PORTABLE Dec 22, 2010 5:15:0 0 AM COMPARISON: Single view chest x-ray 12/21 HISTORY: Post Op, Left Pneumothorax. FINDINGS: Large bore left chest tube aga in noted. There is a tiny left apical pneumothorax ; this represents a decrease in size in the pneumothorax since the co mparison study. Both lungs are clear. The cardiac silhou ette and pulmonary vasculature remain within normal limits. IMPRESSION: 1. Interval decrease in size of the left apical pneumothorax that is now tiny. 2. Clear lungs. Demetris Raymond MD [facility] X-ray Chest 1 vw port (12/21/2010 5:15 AM CDT) Anatomical Region Laterality Modality Chest Other Specimen (Source) Anatomical Collection Method Collection Time Re ceived Time Location / / Volume Laterality 12/21/2010 5:15 AM CDT Impressions 12/21/2010 4:01 PM CDT CHEST 1 VIEW PORTABLE ?? Dec 21, 2010 5:1 5:00 AM HISTORY: Left pneumothorax, postop. COMPARISON: 12/20/2010 at 1035. FINDINGS: No change in position of left- sided chest tube. Moderate subcutaneous emphysema over the left upp er chest wall without change. There is a row of surgical sutures in th e left lung apex. There is a visceral pleural line in the left lung a pex which would usually indicate pneumothorax but there appears to be lung markings beyond this line. This appearance is unchanged since the most recent prior exam but is new since 12/18/2010. A small left pneumothorax is not excluded. If clinically indicated, CT ex am would be more definitive. Remainder of the lungs are clear and the heart size is normal. IMPRESSION: 1. No significant changes since prior ex am. 2. Cannot exclude left apical pneumothor ax. Demetris Raymond MD [facility] BITA X-ray Chest 1 vw port (12/20/2010 10:30 AM CDT) Anatomical Region Laterality Modality Chest Other Specimen (Source) Anatomical Collection Method Collection Time Re ceived Time Location / / Volume Laterality 12/20/2010 10:30 AM CDT Impressions 12/20/2010 3:02 PM CDT CHEST 1 VIEW PORTABLE ??Dec 20, 2010 10:3 0:00 AM HISTORY: ??Postop. COMPARISON: 12/18/2010. FINDINGS: Left chest tube remains in dorothea ce. No pneumothorax. Small amount of gas in the subcutaneous tissue s left axillary region and left chest wall, increased from 12/19/19 11. Right lung expanded and clear. IMPRESSION: Left chest tube in place wit h no pneumothorax but there is some subcutaneous emphysema on the left. Demetris Raymond MD [facility] BITA Surgical pathology exam (12/20/2010 9:27 AM CDT) Component Value Ref Test Analysis Performed At [facility] Range Method Time Signature Copath Report Patient Name: JOHN GEORGE MR#: [id number] Specimen #: [id number] Collected: 12/20/2010 Received: 12/20/2010 Reported: 12/23/2010 14:50 Ordering Phy(s): DEMETRIS RAYMOND SPECIMEN(S): Bleb, Left Apical FINAL DIAGNOSIS: Resected left lung apical bleb, no evidence of malignancy. Electronically signed out by: Buzz Mike M.D. CLINICAL HISTORY: Left pneumothorax. GROSS: The specimen is labeled left apical bleb. ??The specimen c onsists of a 12.3 g pink-purple, lung wedge resection (8.3 x 2.8 x 2.4 cm ) with a stapled surgical resection margin measuring 8.7 cm in length . ??Along the periphery there is a deflated bleb (0.8 x 0.8 x 0.5 cm). ??O n section the remaining lung parenchyma is pink and spongy throughout. ??N o lesions are identified grossly. ??Electric Meter Repairer sections are submitted. ??SI ??TRS/tw Cassettes 1-2. ??Bisected bleb. 3-4. ??Uninvolved lung parenchyma. MICROSCOPIC: A formal microscopic examination is performed. BCT/ls 12/23/2010 TESTING LAB LOCATION: [address] ??[id number] COLLECTION SITE: Client: [facility] Location: [facility] (S) Specimen Anatomical Collection Method Collection Time Receive d Time (Source) Location / / Volume Laterality 12/20/2010 9:27 AM 1 CDT 12:13 PM CDT Demetris Raymond MD LAB - BEAKER AP Performing Organization Address City/[facility] Phon e Number COPATH Hemoglobin (12/20/2010 8:12 AM CDT) P athologist Signature Hemoglobin 12.3 11.7 - 15.7 [place] g/dL [facility] Specimen Anatomical Collection Method Collection Time Receive d Time (Source) Location / / Volume Laterality Blood specimen 12/20/2010 8:12 AM 011 8:15 (specimen) CDT AM CDT Demetris Raymond MD LAB - BLOOD ORDERABLES Performing Organization Address City/[facility]/ZIP Code Phon e Number [place] [address] [place] [address] [facility] documented in this encounter Visit Diagnoses Not on filedocumented in this encounter Administered Medications Inactive Administered Medications - up to 3 most recent administrations Medication Order MAR Action Action Date Dose Rate Site BUPivacaine 0.5% Given 12/20/2010 9:32 AM 30 mLs Operative injection CDT Site/Surgical S ite PRN, Starting on 12/20/10 at 0932, Intra-procedure sodium chloride 0.9% Given 12/20/2010 8:52 AM 1,000 mLs Operative (bottle) irrigation CDT Site/Surgical S ite PRN, Starting on 12/20/10 at 0852, Area to irrigate and instructions: ., Intra-procedure documented in this encounter Active and Recently Administered Medications Times are shown in CDT. Scheduled Medication Order 12/21/2010 12/22/2010 12/23/2010 bacitracin ointment (CANCELED) 0900 (Given - Provider: Lizbet Marinelli RN - Comment: would not scan)1600 (Not Given - Provider: Malu Casillas - Reason: Other - Comment: dressing change not done) 1129 (Given - Provider: Glory Arreola RN - Comment: waited for Ibuprofen to take effect)1600 (Not Given - Provider: Vira Pappas - Reason: Other - Comment: dressing already changed today) 0900 (Not Given - Provider: Glory rodríguez RN - Reason: Other - Comment: ct removed, occlusive dressing in place) Topical, 3 TIMES DAILY, First dose on Sa t 12/20/10 at 1600, At bedside for TID PRN dressing change by , Post-procedure 2199 (Not Given - Provider: Sangeetha Martinez RN - Reason: Other - Comment: dressing change already done for day) 2199 (Not Given - Provider: Sangeetha Martinez RN - Reason: Other - Comment: dressing already chaged) ceFAZolin (ANCEF) 1 g vial to attach to IVPB (COMPLETE D) 0344 (New Bag - Provider: Aspen Tom, RN) 1 g, Intravenous, for 30 Minutes, EVERY 8 HOURS, First dose on 12/20/10 at 1800, For 2 doses ketorolac (TORADOL) injection 30 mg (COMPLETED) 0344 ( Given - Provider: Aspen Tom RN)0912 (Given - Provider: Lizbet Marinelli RN)1707 (Given - Provider: Malu Casillas) 30 mg, Intravenous, EVERY 6 HOURS, First dose on 12/20/10 at 1045, For 6 doses, For patients less than 65 years of age and Crcl Greater than 50 mL/minute. May continue use for up to 5 days MAX if order renewed., Post-procedure levonorgestrel-ethinyl estradiol (AVIANE ,ALESSE,LESSINA) 0.1-20 MG-MCG per tablet 1 tablet (CANCELED) 0900 (Given by Patient/Family - Provider : Lizbet Marinelli RN - Comment: pt takes her own med) 0900 (Given - Provider: Glory Arerola RN - Comment: pt has own supply) 0900 (Given - Provider: Glory Arreola RN - Comment: pt takes own) 1 tablet, Oral, DAILY, First dose on 12/21/10 at 0900, Dispose as HW, Post-procedure senna-docusate (SENOKOT-S;PERICOLACE) 8. 6-50 MG per tablet 1-2 tablet (CANCELED) 0900 (Not Given - Provider: Lizbet glover RN - Reason: Patient/family refused)1842 (Given - Provider: Malu Casillas)2100 (Not Given - Provider: Sangeetha Martinez RN - Reason: Patient/family refused) 0935 (Given - Provider: Glory Arreola RN)2117 (Given - Provider: Sangeetha Martinez RN) 0950 (Given - Provider: Glory Arreola RN) 1-2 tablet, Oral, 2 TIMES DAILY, First d ose on 12/20/10 at 2100, If no bowel movement in 24 hours, increase to 2 tablets PO BID. Hold for loose stools. This is the first step of a three step constipation treatment protocol., Post-procedure sodium chloride 0.9 % flush 3 mL (CANCELED) 0515 (Not Given - Provider: Aspen Tom RN - Reason: IV Infusing)1344 (Given - Provider: Lizbet Marinelli RN)2200 (Given - Provider: Oscar Grimes) 0515 (Canceled Entry)1315 (Given - Provider: Glory Arreola, MALLORY)2115 (Not Given - Provider: Sangeetha Martinez RN - Reason: Loss of IV access) 0515 (Not Given - Provider: Rosario Klien RN - Reason: Loss of IV access) 3 mL, Intravenous, EVERY 8 HOURS, First dose on 12/20/10 at 2115, to lock peripheral IV dormant line. Also Ordered Q1H PRN, Post-procedure Continuous Medication Order 12/21/2010 12/22/2010 12/23/2010 dextrose 5 % in lactated ringers infusion (CANCELED) 0 058 (New Bag - Provider: Aspen Tom, MALLORY)0600 (Rate/Dose Verify - Provider: Aspen Tom RN) 1,000 mL, Intravenous, at 75 mL/hr, CONT INUOUS, Starting 12/20/10 at 1230, Discontinue IV Fluids when PO tolerated., Post-procedure PRN Medication Order 12/21/2010 12/22/2010 12/23/2010 bisacodyl (DULCOLAX) suppository 10 mg (CANCELED) 2116 (Given - Provider: Sangeetha Martinez RN) 0951 (Given - Provider: Glory Arreola RN) 10 mg, Rectal, DAILY PRN, constipation, Starting 12/20/10 at 1221, Hold for loose stools. This is the third step of a three step constipation treatment protocol., Post-procedure hydrocodone-acetaminophen 5-325 MG per tablet 1-2 tabl et 1554 (Given - Provider: Malu Casillas)2159 (Given - Provider: Oscar Grimes) 0655 (Given - Provider: Marine Burris, MALLORY)1333 (Given - Provider: Glory Arreola, MALLORY)2006 (Given - Provider: Vira Pappas) 0207 (Given - Provider: Rosario martines RN)0815 (Given - Provider: Glory Arreola RN) 1-2 tablet, Oral, EVERY 6 HOURS PRN, mod erate to severe pain, Starting 12/21/10 at 1324, autosub for vicodin HYDROmorphone (DILAUDID) injection 0.2-0.4 mg (CANCELE D) 1309 (Given - Provider: Lizbet Marinelli, MALLOYR) 0.2-0.4 mg, Intravenous, EVERY 30 MIN VA N, Starting 12/20/10 at 1221, Until Tu12/23/10 at 1526, severe pain, or if patient unable to take PO, Post- procedure, Hold while on STAFFING RN. ibuprofen (ADVIL,MOTRIN) tablet 600 mg 1842 (Given - Provide r: Malu Casillas) 0125 (Given - Provider: Anna Lane RN)1028 (Given - Provider: Glory Arreola RN)1645 (Given - Provider: Sangeetha Martinez, MALLORY)2253 (Given - Provider: Sangeetha Martinez RN) 0459 (Given - Provider: Rosario martines, MALOLRY) 600 mg, Oral, EVERY 6 HOURS PRN, other, inflammatory pain, Starting 12/20/10 at 1221, Start when Ketorolac is discontinued., Post-procedure ondansetron (ZOFRAN) injection 4 mg (CANCELED) 0835 (G iven - Provider: Lizbet Marinelli RN)1440 (Given - Provider: Lizbet Marinelli RN) 4 mg, Intravenous, EVERY 6 HOURS PRN, na usea, vomiting, for 5 Minutes, Starting 12/20/10 at 1221, This is Step 1 of nausea and vomiting protocol. If nausea not resolved in 15 minutes, go to Step 2 (Prochlorperazine)., Post-procedure oxycodone (ROXICODONE) immediate release tablet 5-10 m g (CANCELED) 0057 (Given - Provider: Aspen Tom, MALLORY)0400 (Given - Provider: Aspen Tom, MALLORY - Comment: Pain increased after pt ambulated to BR)0804 (Given - Provider: Lizbet Marinelli RN) 5-10 mg, Oral, EVERY 3 HOURS PRN, modera te to severe pain, Starting 12/20/10 at 1221, Hold while on STAFFING RN., Post-procedure documented in this encounter Care Teams Creative Services Director Relationship Specialty Start Date End Date Chela Servin PA-C PCP - General Family Practice 08/05/10 03/23/13 [id number] [place] [address] documented as of this encounter
--- OUTSIDE RECORDS SUMMARY | 2022-01-19 15:22 | XMS_ITS | Encounter Summary ---
:1990 Author Organization [facility] Address [address] [place] [id number] Care Team Providers Name Role Phone Chela Servin PA-C Primary Care Provider Reason for Visit Reason Comments Cough Chest Pain Encounter Details Date Type Department Care Team Description 01/05/2013 Office Visit [facility] Jayson Lombardo Coug h (Primary Dx); Clinic [facility] [address] [place] [address] Social History Tobacco Use Types Packs/Day Years Used Date Smoking Tobacco: Never Smokeless Tobacco: Never Alcohol Use Standard Drinks/Week Comments Yes 0 (1 standard drink = 0.6 oz pure alcoho l) Sex Assigned at Date Recorded Female 05/29/2020 7:33 PM CDT documented as of this encounter Last Filed Vital Signs Vital Sign Reading Time Taken Comments Blood Pressure 114/72 01/05/2013 8:06 AM CDT Pulse 88 01/05/2013 8:06 AM CDT Temperature 36.6 ??C (97.8 ??F) 01/05/2013 8:06 AM CDT Respiratory Rate - - Oxygen Saturation 98% 01/05/2013 8:06 AM CDT Inhaled Oxygen Concentration - - Weight 49.4 kg (109 lb) 01/05/2013 8:06 AM CDT Height 170.2 cm (5' 7) 01/05/2013 8:06 AM CDT Body Mass Index 17.07 01/05/2013 8:06 AM CDT documented in this encounter Progress Notes Jayson Lombrado MD - 01/05/2013 8:04 AM CDT SUBJECTIVE: Nataly Simon is a 22 year old female who presents to clinic today for the following health issues: Chest Pain ?? Onset: 2 wks ?? Description (location/character/radiation/duration): chest discomfort across chest but some on left side, occasional SOB, cough ?? Intensity: moderate ?? Accompanying signs and symptoms: Shortness of breath: difficulty taking deep breath Sweating: no Nausea/vomitting: no Palpitations: no Other (fevers/chills/cough/heartburn/lightheadedness): no ?? History (similar episodes/previous evaluation): previously seen but noticed that this is a littledifferent than last time ?? Precipitating or alleviating factors: Worse with exertion: no Worse with breathing: no Related to eating: no Better with burping: no ?? Therapies tried and outcome: None Problem list and histories reviewed & adjusted, as indicated. Additional history: as documented Patient feels like she has a hard time taking a deep breath at times but not short of breath with activity. Feels that her chest feels different but does not describe it as pain. Has had multiple chestx-rays that are normal since the previous pneumothorax in 2010. Denies any fever. No productive cough. No rhinorrhea. ROS: CONSTITUTIONAL: Denies fever RESP: Has some cough more during the day, improved at night OBJECTIVE: BP 114/72 Pulse 88 Temp 97.8 ??F (36.6 ??C) (Oral) Ht 5' 7 (1.702 m) Wt 109 lb (49.442 kg) BMI 17.07 kg/m2 SpO2 98% Body mass index is 17.07 kg/(m^2). GENERAL APPEARANCE: healthy, alert and no distress EYES: Eyes grossly normal to inspection and conjunctivae and sclerae normal HENT: ear canals and TM's normal and nose and mouth without ulcers or lesions NECK: no adenopathy RESP: lungs clear to auscultation - no rales, rhonchi or wheezes CV: regular rates and rhythm and no murmur, click or rub ABDOMEN: soft, nontender, without hepatosplenomegaly or masses MS: no edema ASSESSMENT/PLAN: 786.2 Cough (primary encounter diagnosis) Comment: Plan: Unclear cause of mild cough but no hypoxia, normal exam. Does have history of pneumothorax butclinically does not have pleuritic pain, hypoxia, decreased sounds. Offered x-ray of chest but patient did not want to do that today. Return for x-ray if worsening pain occurs or if cough not resolved in 2 weeks. 780.79 Fatigue Comment: Plan: CBC with platelets, TSH with free T4 reflex, Basic metabolic panel Check above labs with fatigue and symptoms above. Jayson Lombardo MD [facility] documented in this encounter Nursing Notes 01/05/2013 8:00 AM CDT >> HILTON AWAN Yissel Jan 05, 2013 8:08 AM Patient presents with: Cough Chest Pain Initial BP 114/72 Pulse 88 Temp 97.8 ??F (36.6 ??C) (Oral) Ht 5' 7 (1.702 m) Wt 109 lb (49.442 kg) BMI 17.07 kg/m2 SpO2 98% Estimated Body mass index is 17.07 kg/(m^2) as calculated from the following: Height as of this encounter: 5' 7(1.702 m). Weight as of this encounter: 109 lb(49.442 kg). BP completed using cuff size: regular Hilton Awan [employer] documented in this encounter Plan of Treatment Not on filedocumented as of this encounter Procedures Procedure Name Priority Date/Time Associated Diagnosis Comme nts TSH WITH FREE T4 Routine 01/05/2013 8:37 AM Fatigue Resul ts for this REFLEX CDT procedure are i n the results section. BASIC METABOLIC Routine 01/05/2013 8:37 AM Fatigue Result s for this PANEL CDT procedure are i n the results section. CBC WITH PLATELETS Routine 01/05/2013 8:37 AM Fatigue Res ults for this CDT procedure are i n the results section. documented in this encounter Results Basic metabolic panel (01/05/2013 8:37 AM CDT) P athologist Signature Sodium 140 133 - 144 [facility] mmol/L [facility] Potassium 4.1 3.4 - 5.3 [facility] mmol/L [facility] Chloride 104 94 - 109 [facility] mmol/L [facility] Carbon Dioxide 26 20 - 32 [facility] mmol/L [facility] Anion Gap 10 6 - 17 [facility] mmol/L [facility] Glucose 67 60 - 99 [facility] mg/dL [facility] Urea Nitrogen 12 5 - 24 [facility] mg/dL [facility] Creatinine 0.87 0.52 - [facility] 1.04 mg/dL [facility] GFR Estimate 81 >60 [facility] mL/min/1.7 [facility] m2 GFR Estimate If >90 >60 [place] [facility] mL/min/1.7 [facility] m2 Calcium 9.3 8.5 - 10.4 [facility] mg/dL [facility] Specimen Anatomical Collection Method Collection Time Receive d Time (Source) Location / / Volume Laterality Blood specimen 01/05/2013 8:37 AM 013 8:39 (specimen) CDT AM CDT Jayson Lombardo MD LAB - BLOOD ORDERABLES Performing Organization Address City/State/ZIP Code Phon e Number [facility] [address] [place] [address] TSH with free T4 reflex (01/05/2013 8:37 AM CDT) athologist Signature TSH 1.89 0.4 - 5.0 [facility] mU/L [place] Specimen Anatomical Collection Method Collection Time Receive d Time (Source) Location / / Volume Laterality Blood specimen 01/05/2013 8:37 AM 013 8:39 (specimen) CDT AM CDT Jayson Lombardo MD LAB - BLOOD ORDERABLES Performing Organization Address City/State/ZIP Code Phon e Number [facility] [address] [place] [address] [facility] [address] [place], [place] [address] CBC with platelets (01/05/2013 8:37 AM CDT) athologist Signature WBC 5.3 4.0 - 11.0 [place] 10e9/L [facility] RBC Count 4.49 3.8 - 5.2 [place] 10e12/L [facility] Hemoglobin 13.4 11.7 - [place] 15.7 g/dL [facility] Hematocrit 39.4 35.0 - [place] 47.0 % [facility] MCV 88 78 - 100 [place] fl [facility] MCH 29.8 26.5 - [place] 33.0 pg [facility] MCHC 34.0 31.5 - [place] 36.5 g/dL [facility] RDW 12.2 10.0 - [place] 15.0 % [facility] Platelet Count 153 150 - 450 [place] 10e9/L [facility] Specimen Anatomical Collection Method Collection Time Receive d Time (Source) Location / / Volume Laterality Blood specimen 01/05/2013 8:37 AM 013 8:39 (specimen) CDT AM CDT Jayson Lombardo MD LAB - BLOOD ORDERABLES Performing Organization Address City/State/ZIP Code Phon e Number [facility] [address] [place] [address] documented in this encounter Visit Diagnoses Diagnosis Cough - Primary Fatigue Other malaise and fatigue documented in this encounter Care Teams Beader Relationship Specialty Start Date End Date Fidel-Chela Enegl PA-C PCP - General Family Practice 08/05/10 03/23/13 [id number] [place] [address] documented as of this encounter
--- OUTSIDE RECORDS SUMMARY | 2022-01-19 15:22 | XMS_ITS | Encounter Summary ---
:1990 Author Organization [facility] Address [address] [place] [address] Care Team Providers Name Role Phone Chela Servin PA-C Primary Care Provider [phone] Reason for Visit Reason Comments Shortness of Breath pneumothorax x2mos increased SOB cough Encounter Details Date Type Department Care Team Description 12/18/2010 [facility] letty Gardner MD Pneumothorax Emergency Dept [facility] [address] [place] [phone] [place] [address] (Wo rk) Social History Tobacco Use Types Packs/Day Years Used Date Smoking Tobacco: Never Smokeless Tobacco: Never Alcohol Use Standard Drinks/Week Comments No 0 (1 standard drink = 0.6 oz pure alcoho l) Sex Assigned at Date Recorded Female 05/29/2020 7:33 PM CDT documented as of this encounter Last Filed Vital Signs Vital Sign Reading Time Taken Comments Blood Pressure 127/82 12/18/2010 5:36 PM CDT Pulse 82 12/18/2010 5:36 PM CDT Temperature 36.8 ??C (98.2 ??F) 12/18/2010 5:36 PM CDT Respiratory Rate 18 12/18/2010 5:36 PM CDT Oxygen Saturation 100% 12/18/2010 5:36 PM CDT Inhaled Oxygen Concentration - - Weight - - Height - - Body Mass Index - - documented in this encounter Discharge Instructions Discharge InstructionsLeandro Bernard MD - 12/18/2010 5:20 PM CDT Images from the original note were not included. Home Back SP RU CH PNEUMOTHORAX,spontaneous PNEUMOTHORAX means an injury which causes a partial collapse of one lung. This occurs when a bleb or weakened spot on the lung surface ruptures. It may occur in persons with asthma, emphysema or evenin those with no prior lung disease. The air that leaks out of the lung is trapped in the space between the lung and the chest wall (pleural space). This trapped air may compress the lung and prevent it from re-inflating. Your pneumothorax is small and should get better without treatment with a catheter. This can be observed at home. If the amount of trapped air grows larger, it must be removed with a tube placed into the pleural space. HOME CARE: 1) Rest at home. No strenuous activity for one week. 2) You may use acetaminophen (Tylenol) or ibuprofen (Motrin, Advil) to control pain, unless another medicine was prescribed. [ NOTE : If you have chronic liver or kidney disease or ever had a stomach ulcer or GI bleeding, talk with your doctor before using these medicines.] 3) Although your chest might hurt to breathe, during the next three days, it is important to take four slow deep breaths every one to two hours while awake. This sends extra oxygen and blood to the lung and is important to help keep the lung expanded. If an incentive spirometer (breathing exercise device) was given, use it as directed. FOLLOW UP with your doctor or this facility in 24 hours or as advised for a repeat chest X-ray to besure the pneumothorax is not getting larger. [NOTE: Any X-rays taken will be reviewed by a radiologist. You will be notified of any new findings that may affect your care.] GET PROMPT MEDICAL ATTENTION if any of the following occur: -- Breathing becomes more painful or difficult -- Increasing shortness of breath -- Weakness, dizziness or fainting ?? [id number] [facility], [address] [place] [address]. All rights reserved. This information is not intended as a substitute for professional medical care. Always follow your healthcare professional's instructions. documented in this encounter Medications at Time of Discharge Medication Sig Dispensed Refills Start Date End Date cephALEXin (KEFLEX) 500 Take 1 capsule by 28 capsule 0 12/1812/25/2010 MG capsule mouth 4 times daily for 7 days. levonorgestrel-ethinyl Take 1 tablet by 3 Package 3 011 07/18/2011 estradiol (AVIANE) mouth daily. 0.1-20 MG-MCG per tabletIndications: Irregular menstrual cycle oxycodone-acetaminophen Take 1-2 tablets by 30 tablet 0 08/201012/23/2010 (PERCOCET) 5-325 MG per mouth every 4 hours tablet as needed for pain. documented as of this encounter ED Notes Victorino Tay RN - 12/18/2010 6:10 PM CDT Pt D/C with mother at side. Chest tube in place with flutter valve secure to left lateral side. Painand nausea at a tolerable level. Pain education done and pt understands instructions. Victorino Tay RN - 12/18/2010 4:54 PM CDT Pt tolerated procedure well. Insertion site secure,clean and dry at this time. Pt. A&O, answering all questions approp. Moderate amount of pain to insertion site at this time. Will continue to evaluate. Victorino Tay RN - 12/18/2010 4:51 PM CDT Pt to xray for post chest tube insertion xray. Carmen Mccoy - 12/18/2010 2:11 PM CDT Pt taken to radiology via stretcher per tech Victorino Tay RN - 12/18/2010 1:45 PM CDT at bedside assessing PT. Leandro Bernard MD - 12/18/2010 1:44 PM CDT History Chief Complaint: Shortness of Breath HPI Nataly Simon is a 20 year old female who presents to the ED with her mother for shortness of breath. The patient states that six days ago, on December 12, she was diagnosed with moderate left pneumothorax based on Xray and CT scan. It was also found that she has a bleb on the left side. She states that this is her first pneumothorax. She feels worse today with increased shortness of breath andsome chest wall pain with movement, so she reported to the ED. The patient states that her originally felt chest wall pain on October 15. She states she noticed this pain for three weeks after which it mostly subsided. She came to see the doctor at [facility] six days ago for a cold and coughing when her pneumothorax was diagnosed. The patient states that the last food she ate was a piece of pizza at 11:30 today. She states she has not had interventions for her pneumothorax yet but has an appointment to see Dr. Montano in pulmonary medicine tomorrow. Allergies: NKDA Medications: Levonorgestrel-ethinyl estradiol Past Medical History: Mitral valve prolapse, irregular menstruation Past Surgical History: Hc tooth extraction w/forcep Family History: The patient's maternal grandfather had heart disease, colon cancer, and prostatic cancer. The patient's maternal grandmother had hypertension and breast cancer. The patient's paternal grandfather had prostatic cancer. The patient's mother has hypertension. Marital Status: Single Social History: The patient does not smoke or use alcohol. Review of Systems Constitutional: Negative for fever and chills. Respiratory: Positive for chest tightness and shortness of breath. Gastrointestinal: Negative for nausea and vomiting. Skin: Negative for rash. Neurological: Negative for seizures, syncope and weakness. All other systems reviewed and are negative. Physical Exam First Vitals: BP: 128/80 mmHg Heart Rate: 82 Temp: 98.2 ??F (36.8 ??C) Resp: 22 SpO2: 100 % Physical Exam Nursing note and vitals reviewed. Constitutional: No distress. Resting comfortably on the gurney HENT: Right Ear: Tympanic membrane, external ear and ear canal normal. Left Ear: Tympanic membrane, external ear and ear canal normal. Nose: Nose normal. Eyes: Conjunctivae, EOM and lids are normal. Pupils are equal, round, and reactive to light. Right eye exhibits no nystagmus. Left eye exhibits no nystagmus. Neck: Normal range of motion. Neck supple. Cardiovascular: Normal rate, regular rhythm, S1 normal, S2 normal and normal heart sounds. Exam reveals no S3, no S4 and no friction rub. No murmur heard. Pulmonary/Chest: Effort normal. No respiratory distress. She has no wheezes. She has no rales. Decreased aeration on the left. Abdominal: Soft. She exhibits no distension and no mass. There is no hepatosplenomegaly. No tenderness. She has no rebound and no guarding. Musculoskeletal: Normal range of motion. She exhibits no edema and no tenderness. Skin: Skin is warm and dry. No rash noted. She is not diaphoretic. Psychiatric: She has a normal mood and affect. Her behavior is normal. Judgment normal. Emergency Department Course Imaging: Chest PA/Lat X-ray: Moderate to large left pneumothorax, significantly increased since the prior comparison exam. Suspicion for hydropneumothorax. Dr. Rock jordan. Report per radiology. Chest PA/Lat X-ray (Repeat): Lungs reinflated. Tube in proper location. Per my read. Procedures: Narrative: Procedure: Tube Thoracostomy Indication: It is medically necessary to place a chest tube for pneumothorax. Consent: Risks, benefits and alternatives were discussed with patient and consent for procedure wasobtained. Timeout: [place] protocol was followed. TIME OUT conducted just prior to starting procedure confirmed patient identity, site/side, procedure, patient position, and availability of correct equipment and implants.? Yes Medication: BUPivacaine 0.5% - EPInephrine 1:200,000 0.5% injection 15 ccs Procedure Note: Patient was placed in a semirecumbent position with the head of the bed at 30 degrees. The left side was prepped with Betadine. Patient was medicated as above. Incision was made laterally in the midaxilary line. Blunt dissection up and over the rib was preformed until access was obtained to the pleural cavity. A 16 bahraini chest tube was placed and connected to Heimlich valve and wallsuction at 20 cm and air aspirated. Tube was sutured in place with 2-0 silk, and all connections banded. Results: There was minimal drainage, with post procedure X-ray showing complete reexpansion of the lung. Patient Status: Patient tolerated the procedure well. There were no complications. Procedure: Sedation Expected Level: Moderate Sedation Indication: Sedation is required to allow for Chest Tube Consent: Risks, benefits and alternatives were discussed with Patient. Timeout: [place] protocol was followed. TIME OUT conducted prior to Starting procedure confirmed patient identity, site/side, procedure, patient Position, and availability of correct equipment and implants? Yes PO Intake: Full Liquids > 4 hours ASA Class: Class 1 - HEALTHY PATIENT Mallampati: Grade 1: Soft palate, uvula, tonsillar pillars, and posterior pharyngeal wall visible Medication: 150mcg Fentanyl and 120mg Propofol Monitoring: Monitoring consisted of: continuous pulse oximetry and continuous capnometry Patient tolerance: Patient tolerated the procedure well with no immediate complications. Patient Status: Post procedure patient was alert Interventions: 1.0 L Normal Saline IV injection x2 Fentanyl 50mcg IV injection x2 Propofol 120 mg IV injection x2 Dilaudid 0.5 mg IV BUPivacaine 0.5% - EPInephrine 1:200,000 IV injection SQ Emergency Department Course: I performed a thorough exam of the patient. Plan of care discussed. IV inserted and blood drawn. Chest x-ray obtained. Findings discussed with patient. 14:33 Recheck. 14:[address] Demetris Raymond in thoracic surgery regarding the patient's plan of care and follow-up for tomorrow. Tube thoracostomy and sedation performed as per procedure notes above. Second chest x-ray obtained. Findings discussed with patient. Rechecked the patient. Findings and plan explained to the patient. Patient discharged home, status improved, with instructions regarding supportive care, medications, and reasons to return as well as the importance of close follow-up. Impression & Plan Medical Decision Making: This is a [age] year old female who has had a spontaneous pneumothorax on the left secondary eris apical bleb. This has been managed conservatively without chest tube for the last week. She has likely had this pneumothorax for many weeks, possibly on the order of six to eight weeks. The patient's pneumothorax is more severe today. She had a chest tube placed with full expansion of the lung. I placed a Heimlich valve, and the patient will follow-up with Dr. Raymond from thoracic surgery at 9:30tomorrow morning for repeat radiography and consultation. She is to return to the hospital if she has any complications in the interim, such as shortness of breath or worsening chest pain. Diagnosis: 1. Spontaneous pneumothorax in the left, status post chest tube placement Disposition: Follow-up with Dr. Raymond at 9:30 tomorrow morning in the [place] office. Percocet and Keflex as directed. Lino Rodrigez, am serving as a scribe on 12/18/2010 at 2:22 PM to personally document services performed by Dr. Bernard based on my observations and the provider's statements to me. Leandro Bernard MD 12/19/10 0741 documented in this encounter Plan of Treatment Not on filedocumented as of this encounter Procedures Procedure Name Priority Date/Time Associated Diagnosis Comme nts XR CHEST 2 VIEWS STAT 12/18/2010 5:05 PM Resul ts for this CDT procedure are i n the results section. XR CHEST 2 VIEWS STAT 12/18/2010 2:30 PM Resul ts for this CDT procedure are i n the results section. documented in this encounter Results Chest XR, PA & LAT (12/18/2010 5:05 PM CDT) Anatomical Region Laterality Modality Chest Other Specimen (Source) Anatomical Collection Method Collection Time Re ceived Time Location / / Volume Laterality 12/18/2010 5:05 PM CDT Impressions 12/21/2010 4:36 AM CDT CHEST TWO VIEWS Dec 18, 2010 5:05 PM HISTORY: Chest tube placement. COMPARISON: 12/18/2010 at 1424 hours. FINDINGS: Interval placement of a left p leural drain with tip of catheter projecting over the left lung a pex. Interval complete reexpansion of the left lung. No visuali zed residual pneumothorax. Probable small amount of left pleural fl uid. The right lung is clear. Normal size cardiac silhouette. IMPRESSION: 1. Interval placement of a left pleural drain with associated reexpansion of the left lung. 2. No visualized pneumothorax. 3. Probable small left pleural effusion. Leandro Bernard MD [facility] Chest XR, PA & LAT (12/18/2010 2:30 PM CDT) Anatomical Region Laterality Modality Chest Other Specimen (Source) Anatomical Collection Method Collection Time Re ceived Time Location / / Volume Laterality 12/18/2010 2:30 PM CDT Impressions 12/18/2010 3:40 PM CDT CHEST TWO VIEW* ??Dec 18, 2010 2:30:00 PM HISTORY: ??Followup pneumothorax. COMPARISON: ??12/12/2010. FINDINGS: ??Moderate to large left pneum othorax, significantly increased since the prior comparison exa m. Suspicion for hydropneumothorax. Dr. Bernard aware. Leandro Bernard MD [facility] documented in this encounter Visit Diagnoses Diagnosis Pneumothorax Other pneumothorax documented in this encounter Administered Medications Inactive Administered Medications - up to 3 most recent administrations Medication Order MAR Action Action Date Dose Rate Site 0.9 % sodium chloride IV New Bag 12/18/2010 4:20 PM CDT 1,000 mLs 125 mL/hr solution at 125 mL/hr, Intravenous, CONTINUOUS, Administer after the bolus(es)., Starting on Yissel 12/18/10 at 1530, Until Yissel 12/18/10 at 2013 BUPivacaine 0.5 % - Given by Other 12/18/2010 4:15 PM 0 mLs Left Upper Outer EPInephrine 1:200,000 0.5 % CDT Quadrant injection Starting on Yissel 12/18/10 at 1607, For 1 dose, CATHERINE MURPHY: Cabinet Override fentanyl (SUBLIMAZE) injection 50 mcg Given 12/18/2010 4:32 PM CDT 50 mcg 50 mcg, Intravenous, EVERY 10 MIN PRN, moderate to severe pain, Starting on Yissel 12/18/10 at 1514, For 4 doses, May repeat once WITH PHYSICIAN SUPERVISION. Given 12/18/2010 3:58 PM CDT 50 mcg Given 12/18/2010 3:40 PM CDT 50 mcg HYDROmorphone (DILAUDID) 1 MG/ML injecti on Starting on Yissel 12/18/10 at 1719, For 1 dose, MATY TAY S: Cabinet Override HYDROmorphone (DILAUDID) injection 0.5 m g Given 12/18/2010 5:40 PM CDT 0.5 mg 0.5 mg, Intravenous, ONCE, On Yissel 12/18/10 at 1730, For 1 dose ondansetron (ZOFRAN) 2 MG/ML injection Starting on Yissel 12/18/10 at 1750, For 1 dose, MATY TAY S: Cabinet Override ondansetron (ZOFRAN) injection 4 mg Given 12/18/2010 5:58 PM CDT 4 mg 4 mg, Intravenous, ONCE, Administer over 5 Minutes, On Yissel 12/18/10 at 1800, For 1 dose propofol (DIPRIVAN) injection 100 mg New Bag 12/18/2010 4:34 PM CDT 120 mg mL/hr 100 mg, Intravenous, ONCE, On Yissel 12/18/10 at 1530, For 1 dose, GIVE ONLY WITH MD PRESENT. IV push administration rate 10 mg/min. MUST BE INTUBATED. sodium chloride 0.9 % BOLUS New Bag 12/18/2010 3:41 PM CDT 1,000 m Ls 1000 mL/hr 1,000 mL Intravenous, 1,000 mL, ONCE, at 1,000 mL/hr, Administer over 1 Hours, On Yissel 11 at 1530, For 1 dose documented in this encounter Active and Recently Administered Medications Times are shown in CDT. Scheduled Medication Order 12/16/2010 12/17/2010 12/18/2010 HYDROmorphone (DILAUDID) injection 0.5 mg (COMPLETED) 1740 (Given - Provider: Victorino Tay RN) 0.5 mg, Intravenous, ONCE, 1 dose, Yissel 12/18/10 at 1730 ondansetron (ZOFRAN) injection 4 mg (COMPLETED) 1758 (Given - Provider: Victorino Tay RN) 4 mg, Intravenous, ONCE, Administer over 5 Minutes, On Yissel 12/18/10 at 1800, For 1 dose propofol (DIPRIVAN) injection 100 mg (CANCELED) 1634 (New Bag - Provider: Victorino Tay RN - Comment: med given during conscious sedation. see flow sheet for apropriate med dose documentation.med given in 6 20mg doses.) 100 mg, Intravenous, ONCE, Yissel 12/18/10 a t 1530, For 1 dose, GIVE ONLY WITH MD PRESENT. IV push administration rate 10 mg/min. MUST BE INTUBATED. sodium chloride 0.9 % BOLUS 1,000 mL (CANCELED) 1541 (New Bag - Provider: Victorino Tay, RN) Intravenous, 1,000 mL, ONCE, at 1,000 mL /hr, for 1 Hours, Yissel 12/18/10 at 1530, For 1 dose Continuous Medication Order 12/16/2010 12/17/2010 12/18/2010 0.9 % sodium chloride IV solution (CANCELED) 1620 (New Bag - Provider: Victorino Tay, RN - Comment: MD order) 1,000 mL, Intravenous, at 125 mL/hr, CON TINUOUS, Starting Yissel 12/18/10 at 1530, Administer after the bolus(es). PRN Medication Order 12/16/2010 12/17/2010 12/18/2010 fentanyl (SUBLIMAZE) injection 50 mcg (CANCELED) 1540 (Given - Provider: Victorino Tay, RN - Comment: dose given pre procedure.)1558 (Given - Provider: Victorino Tay, RN)1632 (Given - Provider: Victorino Tay, MALLORY - Comment: 2nd dose) 50 mcg, Intravenous, EVERY 10 MIN PRN, m oderate to severe pain, Starting Yissel 12/18/10 at 1514, For 4 doses, May repeat once WITH PHYSICIAN SUPERVISION. No Frequency Medication Order 12/16/2010 12/17/2010 12/18/2010 BUPivacaine 0.5 % - EPInephrine 1:200,000 0.5 % injection (COMPL ETED) 1615 (Given by Other - Provider: Victorino Tay, RN - Comment: used in chest tube procedure) Starting Yissel 12/18/10 at 1607, For 1 dose, CATHERINE MURPHY: Raman et Guille documented in this encounter Care Teams Core Man Relationship Specialty Start Date End Date Fidel-Chela Engel PA-C PCP - General Family Practice 08/05/10 03/23/13 [address] [place] [address] documented as of this encounter
--- OUTSIDE RECORDS SUMMARY | 2022-01-19 15:22 | XMS_ITS | Encounter Summary ---
:1990 Author Organization [facility] Address [address] [place] [address]. [place] [address] Care Team Providers Name Role Phone Chela Servin PA-C Primary Care Provider [phone] Encounter Details Date Type Department Care Team Description 07/18/2011 Telephone [facility] Chela Servin PA-C [id number] [place] [phone] [place] [address] (Wo rk) Social History Tobacco Use Types Packs/Day Years Used Date Smoking Tobacco: Never Smokeless Tobacco: Never Alcohol Use Standard Drinks/Week Comments No 0 (1 standard drink = 0.6 oz pure alcoho l) Sex Assigned at Date Recorded Female 05/29/2020 7:33 PM CDT documented as of this encounter Miscellaneous Notes Telephone Encounter - Dagmar Godfrey - 07/20/2011 9:28 AM CDT Informed of prescription approval. Dagmar Godfrey Network Director Telephone Encounter - Chela Servin PA-C - 07/18/2011 12:04 PM CDT Approved for 2 months and will need to follow-up for pap in August documented in this encounter Plan of Treatment Not on filedocumented as of this encounter Visit Diagnoses Diagnosis IRREGULAR MENSTRUATION - Primary Irregular menstrual cycle documented in this encounter Care Teams Huc Relationship Specialty Start Date End Date Chlea Servin PA-C PCP - General Family Practice 08/05/10 03/23/13 [address] [place] [address] documented as of this encounter
--- OUTSIDE RECORDS SUMMARY | 2022-01-19 15:22 | XMS_ITS | Encounter Summary ---
:1990 Author Organization [facility] Address [address] [place] [address] Care Team Providers Name Role Phone Jayson Lombardo MD Primary Care Provider Unavailable Reason for Visit Reason Onset Date Comments ER F/U 03/27/2013 [facility] Encounter Details Date Type Department Care Team Description 03/27/2013 [facility] Jayson Lombardo Ra, MD ER F/U ([facility]) [place] [address] [place] [phone] Social History Tobacco Use Types Packs/Day Years Used Date Smoking Tobacco: Never Smokeless Tobacco: Never Alcohol Use Standard Drinks/Week Comments Yes 0 (1 standard drink = 0.6 oz pure alcoho l) Sex Assigned at Date Recorded Female 05/29/2020 7:33 PM CDT documented as of this encounter Miscellaneous Notes Telephone Encounter - Kaylynn Cooper RN - 03/29/2013 3:27 PM CST ED/Discharge Protocol Hi, my name is Kaylynn Cooper, a registered nurse, and I am calling on behalf of Dr. Lombardo's office at [facility]. I am calling to follow up and see how things are going for you after your recent visit. I see that you were in the (ER/UC/IP) on 1/14/14 How are you doing now that you are home? Much improved no symptoms since I have been home Is patient experiencing symptoms that may require a hospital visit? No Discharge Instructions Let's review your discharge instructions. What is/are the follow-up recommendations? Pt. Response: F/U with PCP Were you instructed to make a follow-up appointment? Pt. Response: Yes. Has appointment been made? No. Can I help you schedule that appointment? Pt declines appointment, RN suggested f/u do to abnormal labs pt again declines. Advised to f/u in clinic with any return of symptoms. When you see the provider, I would recommend that you bring your discharge instructions with you. Medications How many new medications are you on since your hospitalization/ED visit? 0-1 How many of your current medicines changed (dose, timing, name, etc.) while you were in the hospital/ED visit? 0-1 Do you have questions about your medications? No Were you newly diagnosed with heart failure, COPD, diabetes or did you have a heart attack? No For patients on insulin: Did you start on insulin in the hospital or did you have your insulin dosechanged? No Medication reconciliation completed? Yes Was MTM referral placed (*Make sure to put transitions as reason for referral)? No Call Summary Do you have any questions or concerns about your condition or care plan at the moment? No Triage nurse advice given: Pt advised to be seen this week with PCP, she has declined. Should be seen with any return of symptoms. F/U for HCM. Patient was in ER 1 in the past year (assess appropriateness of ER visits.) If you have questions or things don't continue to improve, we encourage you contact us through the main clinic number, [phone] in if the clinic is not open, triage nurses are available 05/10 to help you. We would like you to know that our clinic has extended hours (provide information). We also have urgent care (provide details on closest location and hours/contact info) Thank you for your time and take care! Kaylynn Cooper, RN HOUSE COUNSEL Telephone Encounter - Kaylynn Cooper RN - 03/29/2013 9:33 AM CST ED / Discharge Outreach Protocol Patient Contact Attempt # 1 Was call answered? No. Left message on voicemail with information to call me back. Kaylynn Cooper, RN HOUSE COUNSEL Telephone Encounter - Dagmar Godfrey - 03/27/2013 12:10 PM CST 03/24/2013 abdominal pain No future appt Dagmar Godfrey Security Assurance Analyst HOUSE COUNSEL documented in this encounter Plan of Treatment Not on filedocumented as of this encounter Visit Diagnoses Not on filedocumented in this encounter Care Teams [employer] Captain Relationship Specialty Start Date End Date Jayson Lombardo MD PCP - General Family Practice 03/24/13 documented as of this encounter
--- OUTSIDE RECORDS SUMMARY | 2022-01-19 15:22 | XMS_ITS | Encounter Summary ---
:1990 Author Organization [facility] Address [address] [place] [id number] Care Team Providers Name Role Phone Chela Servin PA-C Primary Care Provider [phone] Reason for Visit Reason Comments Shortness of Breath and left side discomfort x2 wks Encounter Details Date Type Department Care Team Description 11/05/[address] [facility] Jayson Lombardo SOB ([facility] MD Juwan breath) (Primary Dx) [address] [place] [address] Social History Tobacco Use Types Packs/Day Years Used Date Smoking Tobacco: Never Smokeless Tobacco: Never Alcohol Use Standard Drinks/Week Comments No 0 (1 standard drink = 0.6 oz pure alcoho l) Sex Assigned at Date Recorded Female 05/29/2020 7:33 PM CDT documented as of this encounter Last Filed Vital Signs Vital Sign Reading Time Taken Comments Blood Pressure 124/84 11/05/2011 11:38 AM CDT Pulse 72 11/05/2011 11:38 AM CDT Temperature 36.7 ??C (98.1 ??F) 11/05/2011 11:38 AM CDT Respiratory Rate 16 11/05/2011 11:38 AM CDT Oxygen Saturation 100% 11/05/2011 11:38 AM CDT Inhaled Oxygen Concentration - - Weight 50.8 kg (112 lb) 11/05/2011 11:38 AM CDT Height 171.7 cm (5' 7.6) 11/05/2011 11:38 AM CDT Body Mass Index 17.23 11/05/2011 11:38 AM CDT documented in this encounter Progress Notes Jayson Lombardo MD - 11/05/2011 1:50 PM CDT SUBJECTIVE: Nataly Simon is a 20 year old female presenting for Shortness of Breath Patient with previous left lung bleb and previous spontaneous pneumothorax this past year status post left lung apical wedge resection here with left upper chest pain intermittently over the past few days to week. Denies any dyspnea with exertion, cough, fever. Pain is not severe but she is concerned with her previous history. Denies any lightheadedness, syncope. Some difficulty taking a deep breath. Patient reports that she has never smoked. She has never used smokeless tobacco. Past medical and surgical history reviewed. Patient Active Problem List Diagnoses ??? IRREGULAR MENSTRUATION ??? CARDIOVASCULAR SCREENING; LDL GOAL LESS THAN 160 ??? MVP (mitral valve prolapse) ??? Spontaneous pneumothorax, LEFT Allergies Allergen Reactions ??? No Known Drug Allergies Review of systems: CONSTITUTIONAL:NEGATIVE for fever, chills, change in weight RESP:NEGATIVE for cough, dyspnea on exertion OBJECTIVE: BP 124/84 Pulse 72 Temp(Src) 98.1 ??F (36.7 ??C) (Oral) Resp 16 Ht 5' 7.6 (1.717 m) Wt 112 lb (50.803 kg) BMI 17.23 kg/m2 SpO2 100% GENERAL APPEARANCE: healthy, alert, no distress EYES: Eyes grossly normal to inspection, PERRL HENT: oral mucous membranes moist NECK: no adenopathy RESP: lungs clear to auscultation - no rales, rhonchi or wheezes CV: regular rates and rhythm, no murmur, click or rub X-ray chest ordered and interpreted in the office today. X-ray shows: left apical lung field with linear scarring post-surgical, no PTX noted. Discussed the x-ray with Dr. Maurer in radiology who agrees with reading. ASSESSMENT/PLAN: SOB (shortness of breath) (primary encounter diagnosis) Comment: Plan: X-ray Chest 2 vws* Patient with mild chest symptoms, she was primarily concerned about recurrence of pneumothorax. Sheis relieved with normal x-ray. Discussed pulse negative possibility on x-ray, especially with scarring causing difficulty to read the x- ray. Recommend CT chest if having worsening or continued symptoms. documented in this encounter Nursing Notes 11/05/2011 11:30 AM CDT >> [facility] Nov 05, 2011 11:40 AM Patient presents with: Shortness of Breath - and left side discomfort x2 wks InitialBP 124/84 Pulse 72 Temp(Src) 98.1 ??F (36.7 ??C) (Oral) Resp 16 Ht 5' 7.6 (1.717 m) Wt 112 lb (50.803 kg) BMI 17.23 kg/m2 SpO2 100% Estimated Body mass index is 17.23 kg/(m^2) as calculated from the following: Height as of this encounter: 5' 7.6(1.717 m). Weight as of this encounter: 112 lb(50.803 kg).. BP completed using cuff size (507) Mason Zamora MA documented in this encounter Plan of Treatment Not on filedocumented as of this encounter Procedures Procedure Name Priority Date/Time Associated Diagnosis Comme nts XR CHEST 2 VIEWS Routine 11/05/2011 11:51 AM SOB (shortness of Results for this CDT breath) procedure are i n the results section. documented in this encounter Results X-ray Chest 2 vws* (11/05/2011 11:51 AM CDT) Anatomical Region Laterality Modality Chest Other Specimen (Source) Anatomical Collection Method Collection Time Re ceived Time Location / / Volume Laterality 11/05/2011 11:51 AM CDT Impressions 11/05/2011 12:07 PM CDT CHEST TWO VIEW ?Nov 05, 2011 11:51:0 0 AM HISTORY: Shortness of breath. History of pneumothorax. COMPARISON: 12/23/2010. IMPRESSION: Postoperative changes are no beatriz at the left lung apex. No definite pneumothorax is identified. Pre viously noted left apical chest tube has been removed. The lungs a ppear somewhat hyperinflated bilaterally. No pleural effusions are se en. Heart size and pulmonary vascularity are within normal limits. Jayson Lombardo MD IMG DIAGNOSTIC IMAGING ORDER BITA documented in this encounter Visit Diagnoses Diagnosis SOB (shortness of breath) - Primary Shortness of breath documented in this encounter Care Teams Chief Analytics Officer Relationship Specialty Start Date End Date Aaseby-Chela Engel PA-C PCP - General Family Practice 08/05/10 03/23/13 [address] [place] [address] documented as of this encounter
--- OUTSIDE RECORDS SUMMARY | 2022-01-19 15:22 | XMS_ITS | Encounter Summary ---
:1990 Author Organization [facility] Address [address] [place] [address]. [place] [address] Care Team Providers Name Role Phone Chela Servin PA-C Primary Care Provider Reason for Visit Reason Onset Date Comments Refill Request 07/21/2011 [facility] Encounter Details Date Type Department Care Team Description 07/21/2011 [facility] Refill Request [place] Chela Contreras PA-C ([id number]) [id number] [phone] [place] [address] (Wo rk) Social History Tobacco Use Types Packs/Day Years Used Date Smoking Tobacco: Never Smokeless Tobacco: Never Alcohol Use Standard Drinks/Week Comments No 0 (1 standard drink = 0.6 oz pure alcoho l) Sex Assigned at Date Recorded Female 05/29/2020 7:33 PM CDT documented as of this encounter Miscellaneous Notes Telephone Encounter - Kaylynn Cooper - 07/23/2011 12:23 PM CDT Was refilled on 07/18/11 with 2 refills, pt due for follow up if needing refills. Kaylynn Cooper, RN documented in this encounter Plan of Treatment Not on filedocumented as of this encounter Visit Diagnoses Diagnosis IRREGULAR MENSTRUATION Irregular menstrual cycle documented in this encounter Care Teams Hose Cementer Relationship Specialty Start Date End Date Chela Servin PA-C PCP - General Family Practice 08/05/10 03/23/13 [id number] [place] [address] documented as of this encounter
--- OUTSIDE RECORDS SUMMARY | 2022-01-19 15:22 | XMS_ITS | Encounter Summary ---
:1990 Author Organization [facility] Address [address] [place] [address]. [place] [address] Care Team Providers Name Role Phone Chela Servin PA-C Primary Care Provider [phone] Reason for Visit Reason Comments Recheck Medication Headache Encounter Details Date Type Department Care Team Description 10/25/2012 Office Visit [facility] SELINA Servin MENSTRUATION (Primary Dx); [facility] Chela Contreras PA-C Need for Tdap vaccination; [address] [facility] [address] [facility] [place] [address] [id number] Social History Tobacco Use Types Packs/Day Years Used Date Smoking Tobacco: Never Smokeless Tobacco: Never Alcohol Use Standard Drinks/Week Comments Yes 0 (1 standard drink = 0.6 oz pure alcoho l) Sex Assigned at Date Recorded Female 05/29/2020 7:33 PM CDT documented as of this encounter Last Filed Vital Signs Vital Sign Reading Time Taken Comments Blood Pressure 104/64 10/25/2012 8:01 AM CDT Pulse 90 10/25/2012 8:01 AM CDT Temperature 37.1 ??C (98.7 ??F) 10/25/2012 8:01 AM CDT Respiratory Rate - - Oxygen Saturation 98% 10/25/2012 8:01 AM CDT Inhaled Oxygen Concentration - - Weight 49 kg (108 lb) 10/25/2012 8:01 AM CDT Height 170.2 cm (5' 7) 10/25/2012 8:01 AM CDT Body Mass Index 16.92 10/25/2012 8:01 AM CDT documented in this encounter Patient Instructions Patient InstructionsChela Servin PA-C - 10/25/2012 8:20 AM CDT Images from the original note were not included. 626.4 IRREGULAR MENSTRUATION (primary encounter diagnosis) Comment: refilled x 1 year Plan: levonorgestrel-ethinyl estradiol (AVIANE) 0.1-20 MG-MCG per tablet V06.1 Need for Tdap vaccination Comment: Plan: TDAP ( BOOSTRIX AGES 10-64), VACCINE ADMINISTRATION, INITIAL 346.90 Migraines Comment: gave a migraine folder. Please track how often migraines happened and follow-up in 1-2 months Plan: SUMAtriptan (IMITREX) 100 MG tablet, MIGRAINE ACTION PLAN Home Back SP Patient Education ?? Sumatriptan Nasal spray, solution ?? Sumatriptan Succinate Oral tablet ?? Sumatriptan Succinate Solution for injection Sumatriptan Succinate Oral tablet What is this medicine? SUMATRIPTAN (pito ma TRIP malone) is used to treat migraines with or without aura. An aura is a strange feeling or visual disturbance that warns you of an attack. It is not used to prevent migraines. This medicine may be used for other purposes; ask your health care provider or pharmacist if you have questions. What should I tell my health care provider before I take this medicine? They need to know if you have any of these conditions: ?? bowel disease or colitis ?? diabetes ?? family history of heart disease ?? fast or irregular heart beat ?? heart or blood vessel disease, angina (chest pain), or previous heart attack ?? high blood pressure ?? high cholesterol ?? history of stroke, transient ischemic attacks (TIAs or mini-strokes), or intracranial bleeding ?? kidney or liver disease ?? overweight ?? poor circulation ?? postmenopausal or surgical removal of uterus and ovaries ?? Raynaud's disease ?? seizure disorder ?? an unusual or allergic reaction to sumatriptan, other medicines, foods, dyes, or preservatives ?? or trying to get ?? breast-feeding How should I use this medicine? Take this medicine by mouth with a glass of water. Follow the directions on the prescription label. This medicine is taken at the first symptoms of a migraine. It is not for everyday use. If your migraine headache returns after one dose, you can take another dose as directed. You must leave at least 2hours between doses, and do not take more than 100 mg as a single dose. Do not take more than 200 mgtotal in any 24 hour period. If there is no improvement at all after the first dose, do not take a second dose without talking to your doctor or health daycare provider. Do not take your medicine moreoften than directed. Talk to your honey blender regarding the use of this medicine in children. Special care may be needed. Overdosage: If you think you have taken too much of this medicine contact a poison control center [facility] room at once. NOTE: This medicine is only for you. Do not share this medicine with others. What if I miss a dose? This does not apply; this medicine is not for regular use. What may interact with this medicine? Do not take this medicine with any of the following medicines: ?? amphetamine or cocaine ?? dihydroergotamine, ergotamine, ergoloid mesylates, methysergide, or ergot- type medication - do not take within 24 hours of taking sumatriptan ?? feverfew ?? MAOIs like Carbex, Eldepryl, Marplan, Nardil, and Parnate - do not take sumatriptan within 2 weeks of stopping MAOI therapy ?? other migraine medicines like almotriptan, eletriptan, naratriptan, rizatriptan, zolmitriptan - do not take within 24 hours of taking sumatriptan ?? tryptophan This medicine may also interact with the following medications: ?? lithium ?? medicines for mental depression, anxiety or mood problems ?? medicines for weight loss such as dexfenfluramine, dextroamphetamine, fenfluramine, or sibutramine ?? [place]'s wort This list may not describe all possible interactions. Give your health care provider a list of all the medicines, herbs, non-prescription drugs, or dietary supplements you use. Also tell them if you smoke, drink alcohol, or use illegal drugs. Some items may interact with your medicine. What should I watch for while using this medicine? Only take this medicine for a migraine headache. Take it if you get warning symptoms or at the startof a migraine attack. It is not for regular use to prevent migraine attacks. You may get drowsy or dizzy. Do not drive, use machinery, or do anything that needs mental alertnessuntil you know how this medicine affects you. To reduce dizzy or fainting spells, do not sit or stand up quickly, especially if you are an older patient. Alcohol can increase drowsiness, dizziness and flushing. Avoid alcoholic drinks. Smoking cigarettes may increase the risk of heart-related side effects from using this medicine. What side effects may I notice from receiving this medicine? Side effects that you should report to your doctor or health daycare provider as soon as possible: ?? allergic reactions like skin rash, itching or hives, swelling of the face, lips, or tongue ?? breathing problems ?? changes in vision ?? chest or throat pain, tightness ?? fast, slow, or irregular heart beat ?? hallucinations ?? increased or decreased blood pressure ?? problems with balance, talking, walking ?? seizures ?? severe stomach pain and cramping, bloody diarrhea ?? tingling, pain, or numbness in the face, hands or feet Side effects that usually do not require medical attention (report to your doctor or health daycare provider if they continue or are bothersome): ?? drowsiness ?? feeling warm, flushing, or redness of the face ?? muscle pain or cramps ?? nausea, vomiting, diarrhea or stomach upset ?? weak or tired This list may not describe all possible side effects. Call your doctor for medical advice about sideeffects. You may report side effects to FDA at 3-023-YTP-2877. Where should I keep my medicine? Keep out of the reach of children. Store at room temperature between 2 and 30 degrees C (36 and 86 degrees F). Throw away any unused medicine after the expiration date. NOTE:This sheet is a summary. It may not cover all possible information. If you have questions aboutthis medicine, talk to your doctor, pharmacist, or health care provider. Copyright?? 2011 Gold Standard documented in this encounter Progress Notes Chela Servin PA-C - 10/25/2012 8:02 AM CDT SUBJECTIVE: Nataly Simon is a 21 year old female who presents to clinic today for the following health issues: Headaches ?? Duration: worse in past 2 months ?? Description Location: unilateral in the left temporal area Character: squeezing and pounding Frequency: q4-10 days Duration: 2-3 hours ?? Intensity: severe ?? Accompanying signs and symptoms: ?? Precipitating or Alleviating factors: Nausea/vomiting: always Dizziness: no Weakness or numbness: no Visual changes: flashing lights and blind spots (scotoma) Fever: no Sinus or URI symptoms no ?? History Head trauma: no Family history of migraines: no Previous tests for headaches: no Neurologist evaluations: no Able to do daily activities when headache present: YES Wake with headaches: YES Daily pain medication use: no Any changes in: none known ?? Precipitating or Alleviating factors (light/sound/sleep/caffeine): light? ?? Therapies tried and outcome: Naproxyn (Aleve) and Tylenol Outcome - not effective Frequent/daily pain medication use: no Also needs refill on her control. Works well. Has never been sexually active Does not smoke Problem list and histories reviewed & adjusted, as indicated. Additional history: as documented Patient Active Problem List Diagnosis ??? IRREGULAR MENSTRUATION ??? CARDIOVASCULAR SCREENING; LDL GOAL LESS THAN 160 ??? MVP (mitral valve prolapse) ??? Spontaneous pneumothorax, LEFT Past Surgical History Procedure Date ??? Hc tooth extraction w/forcep 2008 ??? Thoracoscopic wedge resection lung 12/20/2010 Procedure:THORACOSCOPIC WEDGE RESECTION LUNG; Left Video Assisted Thoracoscopy, Apical Blebectomy ;Surgeon:JUSTA NGUYỄN; Location:[facility] OR History Substance Use Topics ??? Smoking status: Never Smoker ??? Smokeless tobacco: Never Used ??? Alcohol Use: Yes Family History Problem Relation Age of Onset ??? Family History Negative No family hx of ??? Hypertension Mother ??? Family History Negative Father ??? Heart Maternal Grandfather ??? Diabetes Maternal Grandfather ??? Colon CA Maternal Grandfather ??? Prostatic CA Maternal Grandfather ??? Hypertension Maternal Grandmother ??? Breast CA Paternal Grandmother ??? Prostatic CA Paternal Grandfather Current Outpatient Prescriptions Medication Sig ??? levonorgestrel-ethinyl estradiol (AVIANE) 0.1-20 MG-MCG per tablet Take 1 tablet by mouth daily ??? SUMAtriptan (IMITREX) 100 MG tablet Take 1 tablet (100 mg) by mouth at onset of headache for migraine May repeat in 2 hours if needed: max 2/day; ROS: Constitutional, HEENT, cardiovascular, pulmonary, gi and gu systems are negative, except as otherwise noted. OBJECTIVE: BP 104/64 Pulse 90 Temp 98.7 ??F (37.1 ??C) (Oral) Ht 5' 7 (1.702 m) Wt 108 lb (48.988 kg) BMI 16.92 kg/m2 SpO2 98% Body mass index is 16.92 kg/(m^2). GENERAL APPEARANCE: healthy, alert and no distress EYES: Eyes grossly normal to inspection, PERRL and conjunctivae and sclerae normal HENT: ear canals and TM's normal and nose and mouth without ulcers or lesions RESP: lungs clear to auscultation - no rales, rhonchi or wheezes CV: regular rates and rhythm, normal S1 S2, no S3 or S4 and no murmur, click or rub NEURO: Normal strength and tone, mentation intact, speech normal and cranial nerves 2-12 intact ASSESSMENT/PLAN: 626.4 IRREGULAR MENSTRUATION (primary encounter diagnosis) Comment: not sexually active Plan: levonorgestrel-ethinyl estradiol (AVIANE) 0.1-20 MG-MCG per tablet V06.1 Need for Tdap vaccination Comment: Plan: TDAP ( BOOSTRIX AGES 10-64), VACCINE ADMINISTRATION, INITIAL 346.90 Migraines Comment: Plan: SUMAtriptan (IMITREX) 100 MG tablet, MIGRAINE ACTION PLAN, MIGRAINE QUESTIONNAIRE See Patient Instructions NATHANIEL MerchantC, [facility] documented in this encounter Nursing Notes 10/25/2012 8:00 AM CDT >> HILTON Vogel Oct 25, 2012 8:06 AM Patient presents with: Recheck Medication Headache Initial BP 104/64 Pulse 90 Temp 98.7 ??F (37.1 ??C) (Oral) Ht 5' 7 (1.702 m) Wt 108 lb (48.988 kg) BMI 16.92 kg/m2 SpO2 98% Estimated Body mass index is 16.92 kg/(m^2) as calculated from the following: Height as of this encounter: 5' 7(1.702 m). Weight as of this encounter: 108 lb(48.988 kg). BP completed using cuff size: regular Hilton Sanchez DISTILLERY MANAGER documented in this encounter Plan of Treatment Not on filedocumented as of this encounter Procedures Procedure Name Priority Date/Time Associated Diagnosis Comme nts MIGRAINE QUESTIONNAIRE Routine 10/25/2012 8:26 AM CDT Migraine s documented in this encounter Visit Diagnoses Diagnosis IRREGULAR MENSTRUATION - Primary Irregular menstrual cycle Need for Tdap vaccination Need for prophylactic vaccination with c ombined cadxoolfdz-cvhqfax-jqxffydrw (DTP) vaccine Migraines Migraine, unspecified, without mention o f intractable migraine without mention of status migrainosus documented in this encounter Care Teams Outdoor Power Equipment Mechanic Relationship Specialty Start Date End Date Chela Servin PA-C PCP - General Family Practice 08/05/10 03/23/13 [id number] [place] [address] documented as of this encounter
--- OUTSIDE RECORDS SUMMARY | 2022-01-19 15:22 | XMS_ITS | Encounter Summary ---
:1990 Author Organization [facility] Address [address] [place] [address] Care Team Providers Name Role Phone Chela Servin PA-C Primary Care Provider [phone] Encounter Details Date Type Department Care Team Description 12/20/2010 Anesthesia Event [facility] Felipe Steve [place] PeriOP Ser vices MD [address] [facility], [address] [place] [id number] [phone] Anesthesia Record Procedure Summary Procedure Name Responsible Anesthesia Start Anesthesia Stop Anesthesiologist Time Time Left Video Assisted 12/20/10 0853 12/20/10 100 5 Thoracoscopy, Apical Blebectomy (Left: Chest) Events Date Time Event Comment 12/20/2010 0839 0853 An Start 1005 An Stop Name Total ceFAZolin (ANCEF) IVPB 1 g 1 g Agents No agents on file. Blood No blood administrations on file. Lines, Drains, and Airways Type Details Placement Removal Chest Tube 12/18/10; 1603; Left 12/18/10 1603 by Lacey, 12/20 0900 by (flutter valve placed on MALLORY Gleason Mary S, RN end of the insertion tube); Midaxillary Peripheral IV 12/20/10; 0805; 18 G; 12/20/10 0805 by 12/22/10 1307 by Left; Lower forearm; Bianca Blackburn Johns on, Diane D, Tolerated well RN RN Chest Tube 12/20/10; 0933; Left; 12/20/10 0933 by 12/23/10 0900 by Other (Comment) (apex); Lynne Claros Diane D, 28 Ash Somers RN RN Incision/Surgical Site 12/20/10; 0934; Left; 12/20/10 0934 by 1145 by Chest; 12/23/10; 1145 Lynne Claros Diane D, Kathleen, RN RN RETIRED ETT Airway Size: 37; Cuffed; 12/20/10 0955 by 1145 by Dual lumen endotracheal Glory Arreola, tube; Blade Type: RN José Miguel; Blade Size: 3; Place by: Ramy Berg; Insertion Attempts: 1; Secured at (cm)to lip: 29 cm; Breath Sounds: Equal, clear and bilateral; End Tidal CO2: Present; Dentition: Intact; Grade View of Cords: 1; Airway Adjuncts: Fiber optic RETIRED ETT 12/20/10 0957 by 12/20/10 0957 Whit Mason APRN CRNA documented in this encounter Social History Tobacco Use Types Packs/Day Years Used Date Smoking Tobacco: Never Smokeless Tobacco: Never Alcohol Use Standard Drinks/Week Comments No 0 (1 standard drink = 0.6 oz pure alcoho l) Sex Assigned at Date Recorded Female 05/29/2020 7:33 PM CDT documented as of this encounter OR Notes Anesthesia Postprocedure Evaluation - Felipe Steve MD - 12/20/2010 11:08 AM CDT Anesthesia Post-Evaluation Note Patient: Nataly Simon Patient location: PACU Procedure(s) Performed: THORACOSCOPIC WEDGE RESECTION LUNG - Left Video Assisted Thoracoscopy, Apical Blebectomy Anesthesia type: General Patient Condition Respiratory Function (RR / SpO2 / Airway Patency): Satisfactory Cardiac Function (HR / Rhythm / BP): Satisfactory Mental Status: Satisfactory Temperature: Satisfactory Pain Control: Satisfactory PONV: None Beta-Esther Therapy: None indicated Last Vitals: Filed Vitals: 12/20/10 1030 12/20/10 1045 12/20/10 1100 BP: 133/80 124/82 119/82 Temp: 98 ??F (36.7 ??C) Resp: 20 14 19 SpO2: 100% 100% 100% Additional Comments: Anesthesia Preprocedure Evaluation - Felipe Steve MD - 12/20/2010 8:37 AM CDT Anesthesia Evaluation history and physical reviewed . Pt has had prior anesthetic. ROS/MED HX Pulmonary: Neurologic: Cardiovascular: (+) . . valvular problems/murmurs type: MVP METS/Exercise Tolerance: Hematologic: Musculoskeletal: GI/Hepatic: Renal: Endo: Psychiatric: Infectious Disease: Other: Physical Exam Normal systems: cardiovascular, pulmonary and dental Airway Mallampati: I TM distance: >3 FB Neck ROM: full Dental Cardiovascular Pulmonary Anesthesia Plan ASA Score 2 . Plan for General and ETT with Intravenous and Propofol induction. Routine analgesia and antiemetics to be used for post-operative care. Anesthetic plan, risks, benefits and alternatives discussed with: patient or telesales representative. . documented in this encounter Miscellaneous Notes Anesthesia Care Transfer Note - Whit Berg APRN CRNA - 12/20/2010 10:05 AM CDT Anesthesia Care Transfer Note Patient: Nataly Simon Transferred to: PACU Patient vital signs: stable Airway: none documented in this encounter Plan of Treatment Not on filedocumented as of this encounter Visit Diagnoses Not on filedocumented in this encounter Administered Medications Inactive Administered Medications - up to 3 most recent administrations Medication Order MAR Action Action Date Dose Rate Site ceFAZolin (ANCEF) IVPB 1 g Given 12/20/2010 8:53 AM CDT 1 g Routine, 1 g, Intravenous, PRE-OP/PRE-PROCEDURE, Starting on 12/20/10 at 0800, For 1 dose, Give first dose within 1 hour PRIOR to incision., Pre-procedure documented in this encounter Care Teams Production Operations Manager Relationship Specialty Start Date End Date Chela Servin PA-C PCP - General Family Practice 08/05/10 03/23/13 [address] [place] [address] documented as of this encounter
--- OUTSIDE RECORDS SUMMARY | 2022-01-19 15:22 | XMS_ITS | Encounter Summary ---
:1990 Author Organization [facility] Address [address] [place] [address]. [place] [address] Care Team Providers Name Role Phone Chela Servin PA-C Primary Care Provider Jayson Lombardo MD Primary Care Provider Unavailable Jayson Lombardo MD Unavailable Unavailable Jayson Lombardo MD Unavailable Unavailable Jayson Lombardo MD Unavailable Unavailable Reason for Visit Reason Onset Date Comments Outreach 02/01/2013 [facility] Encounter Details Date Type Department Care Team Description 02/01/2013 Telephone [facility] Danica Servin ([facility]) [place] Chela Contreras PA-C [address] [facility] [address] [place] [address] [place] [address] (Wo rk) Social History Tobacco Use Types Packs/Day Years Used Date Smoking Tobacco: Never Smokeless Tobacco: Never Alcohol Use Standard Drinks/Week Comments Yes 0 (1 standard drink = 0.6 oz pure alcoho l) Sex Assigned at Date Recorded Female 05/29/2020 7:33 PM CDT documented as of this encounter Miscellaneous Notes Telephone Encounter - Lee Rolon - 02/01/2013 1:52 PM CST 02/01/2013 Call Regarding Preventive Health Screening Cervical/PAP Attempt 1 Message on voicemail Comments: Outreach Welding Equipment Sales Representative MRL CAL BILLING SPECIALIST documented in this encounter Plan of Treatment Not on filedocumented as of this encounter Visit Diagnoses Not on filedocumented in this encounter Care Teams Lead Miner Relationship Specialty Start Date End Date Chela Servin, PCP - General Family Practice 08/05/10 03/23/13 [address] [place] [address] Jayson Lombardo MD PCP - General Family Practice 03/24/13 Jayson Lombardo MD PCP - Assigned PCP 08/12/14 05/17/18 Jayson Lombardo MD Assigned PCP 08/12/14 04/20/20 Jayson Lombardo MD Assigned PCP 06/16/20 2 documented as of this encounter
--- OUTSIDE RECORDS SUMMARY | 2022-01-19 15:22 | XMS_ITS | Encounter Summary ---
:1990 Author Organization [place] Address [address] [place] [address]. [place] [address] Care Team Providers Name Role Phone Chela Servin PA-C Primary Care Provider Reason for Visit Reason Onset Date Comments ER F/U 12/19/2010 [facility] ED on 12/18/10 Encounter Details Date Type Department Care Team Description 12/19/2010 Telephone [facility] DOMONIQUE Servin F/U ([facility] on [facility] [place] Chela Contreras PA-C 12/18/10) [address] [facility] [id number] [place] [id number] Social History Tobacco Use Types Packs/Day Years Used Date Smoking Tobacco: Never Smokeless Tobacco: Never Alcohol Use Standard Drinks/Week Comments No 0 (1 standard drink = 0.6 oz pure alcoho l) Sex Assigned at Date Recorded Female 05/29/2020 7:33 PM CDT documented as of this encounter Miscellaneous Notes Telephone Encounter - Kym Sanchez - 02/13/2011 9:41 AM CST Pt had surgery Kym Sanchez CMA DRIER OPERATOR Telephone Encounter - Alvina Moreira - 12/19/2010 2:05 PM CDT Called home phone, mother states pt went to ER 12-18 with Pneumothorax and is being admitted 12-20-10 to hospital for Blebectomy surgery, schedule to be discharged 12-23-2010. Alvina Moreira RN Telephone Encounter - Kym Sanchez - 12/19/2010 1:51 PM CDT [facility] ED on 12/18/10 for shortness of breath No future appt Kym Sanchez CMA documented in this encounter Plan of Treatment Not on filedocumented as of this encounter Visit Diagnoses Not on filedocumented in this encounter Care Teams Coal Sample Tester Relationship Specialty Start Date End Date Chela Servin PA-C PCP - General Family Practice 08/05/10 03/23/13 [address] [place] [address] documented as of this encounter
--- OUTSIDE RECORDS SUMMARY | 2022-01-19 15:22 | XMS_ITS | Encounter Summary ---
:1990 Author Organization [facility] Address [address] [place] [address]. [place] [address] Care Team Providers Name Role Phone Chela Servin PA-C Primary Care Provider Reason for Visit Auth/Cert - Closed Specialty Diagnoses / Procedures Referred By Contact Refer red To Contact Surgery Diagnoses Left Pneumothorax Sh Periop Services Procedures THORACOSCOPIC WEDGE RESECTION LUNG [address] [place] [phone] Phone: Referral ID Status Reason Start Date Expiration Date Visits Requ ested Visits Authorized [id number] Closed 12/19/2010 06/17/2011 1 1 Encounter Details Date Type Department Care Team Description 12/20/2010 - [facility] Demetris Raymond 12/23/2010 Encounter Chino Rayo MD [facility] [place] [facility] [address] [place] [phone] [address] [place] [address] Social History Tobacco Use Types Packs/Day Years [...] left video-assisted thoracoscopy with apical blebectomy at [facility]. HOSPITAL COURSE: John George is [...] and followup. She will be seen by Constanec Duval PA-C, with a chest x-ray in 1 week's time but was encouraged to call with any concerns or questions in the meanwhile. DEMETRIS RAYMOND MD As dictated by FREDI GUERRIER MT: as Name: JOHN GEORGE MRN: [id number] Account: [id number] : 1990 Admit Date: [id number] Discharge Date: 12/23/2010 Document: [id number] documented in this encounter Discharge Instructions Discharge [...] Demetris Raymond MD - 02/06/2011 2:23 PM MECHANICAL TECH ANICAL TECH Constance Duval PA-C - 12/23/2010 8:59 AM [...] Small apical ptx Satisfactory DEMETRIS RAYMOND MD [facility] ONCOLOGY THORACIC SURGERY CELL: OFFICE: documented [...] Demetris Raymond MD - 02/06/2011 2:19 PM MECHANICAL TECH ANICAL TECH documented in this encounter Miscellaneous Notes Plan [...] Individualization/Patient-Specific Goal (Adult,OB,Behavioral The patient and/or their automotive leasing sales representative will achieve their patient-specific goals related [...] Individualization/Patient-Specific Goal (Adult,OB,Behavioral The patient and/or their automotive leasing sales representative will achieve their patient-specific goals related [...] Individualization/Patient-Specific Goal (Adult,OB,Behavioral The patient and/or their automotive leasing sales representative will achieve their patient-specific goals related [...] Individualization/Patient-Specific Goal (Adult,OB,Behavioral The patient and/or their automotive leasing sales representative will achieve their patient-specific goals related [...] examination was normal. Using multiple applications of [place] 45 mm stapling device, a blebectomywas performed. [...] EM#[id number] Name: JOHN GEORGE MRN: [id number] Account: [id number] : 1990 Procedure Date: 12/20/2010 Document: [id number] Brief Op Note - Demetris Raymond MD - 12/20/2010 9:45 AM CDT [facility] Thoracic Surgery Brief Operative Note [...] apical pneumothor ax unchanged. Demetris Raymond MD [facility]AG[facility] ORDER BITA X-ray Chest 1 [...] tiny. 2. Clear lungs. Demetris Raymond MD [facility] ORDER BITA X-ray Chest 1 [...] left apical pneumothor ax. Demetris Raymond MD [facility] ORDER BITA X-ray Chest 1 [...] emphysema on the left. Demetris Raymond MD [facility] ORDER BITA Surgical pathology exam (12/20/2010 9:27 AM CDT) Component Value Ref Test Analysis Performed At [facility] Range Method Time Signature Copath Report Patient Name: JOHN GEORGE MR#: [id number] Specimen #: [id number] Collected: 12/20/2010 Received: 12/20/2010 Reported: 12/23/2010 14:50 [...] throughout. ??N o lesions are identified grossly. ??Prescription Eyeglass Maker sections are submitted. ??SI ??TRS/tw Cassettes 1-2. ??Bisected bleb. 3-4. ??Uninvolved lung parenchyma. MICROSCOPIC: A formal microscopic examination is performed. BCT/ls 12/23/2010 TESTING LAB LOCATION: [facility] [address] [facility] [place] ??[id number] COLLECTION SITE: Client: [facility] Location: SH33 (S) Specimen Anatomical Collection Method Collection Time Receive d Time (Source) Location / / Volume Laterality 12/20/2010 9:27 AM 1 CDT 12:13 PM CDT Demetris Raymond MD LAB - BEAKER AP Performing Organization Address City/State/ZIP Code Phon e Number [facility] Hemoglobin (12/20/2010 8:12 AM CDT) P athologist Signature Hemoglobin 12.3 11.7 - 15.7 [place] g/dL [facility] LAB Specimen Anatomical Collection Method Collection Time Receive d Time (Source) Location / / Volume Laterality Blood specimen 12/20/2010 8:12 AM 011 8:15 (specimen) CDT AM CDT Demetris Raymond MD LAB - BLOOD ORDERABLES Performing Organization Address City/State/ZIP Code Phon e Number [facility] [address] [place] [address] [facility] documented in this encounter Visit Diagnoses Diagnosis Spontaneous pneumothorax, LEFT - Primary Other pneumothorax IRREGULAR MENSTRUATION Irregular menstrual cycle documented in this encounter Administered Medications Inactive Administered Medications - up to 3 most recent administrations Medication Order MAR Action Action Date Dose Rate Site bacitracin ointment Given 12/22/2010 11:29 AM CDT Topical, 3 TIMES DAILY, First dose on 12/20/10 at 1600, At bedside for TID PRN dressing change by ., Post-procedure Given 12/21/2010 9:00 AM CDT bisacodyl (DULCOLAX) suppository 10 mg Given 12/23/2010 9:51 AM CDT 10 mg 10 mg, Rectal, DAILY PRN, constipation, Starting on 12/20/10 at 1221, Hold for loose stools. This is the third step of a three step constipation treatment protocol., Post-procedure Given 12/22/2010 9:17 PM CDT 10 mg ceFAZolin (ANCEF) 1 g vial to attach to New Bag 12/21/2010 3:4 4 AM CDT 1 g mL/hr IVPB Routine, 1 g, Intravenous, EVERY 8 HOURS, First dose on 12/20/10 at 1800, For 2 doses New Bag 12/20/2010 5:25 PM CDT 1 g mL/hr dextrose 5 % in lactated Rate/Dose Verify 12/21/2010 6:00 AM 1,000 mL s 75 mL/hr ringers infusion CDT at 75 mL/hr, Intravenous, CONTINUOUS, Discontinue IV Fluids when PO tolerated., Post-procedure, Starting on 12/20/10 at 1230, Until 12/21/10 at 0817 New Bag 12/21/2010 12:58 AM CDT 1,000 mLs 75 mL/hr Rate/Dose Verify 12/20/2010 3:47 PM CDT 1,000 mLs 75 mL/hr hydrocodone-acetaminophen 5-325 MG per Given 12/23/2010 8:15 AM CDT 2 tablets tablet 1-2 tablet 1-2 tablet, Oral, EVERY 6 HOURS PRN, moderate to severe pain, Starting on 12/21/10 at 1324, autosub for vicodin Given 12/23/2010 2:07 AM CDT 2 tablets Given 12/22/2010 8:07 PM CDT 2 tablets HYDROmorphone (DILAUDID) 0.4 MG/0.4 ML i njection 1 dose, Starting on 12/20/10 at 1226, Until 12/20/10 at 1228, Sangeetha Martinez: Cabinet Override HYDROmorphone (DILAUDID) injection 0.2-0 .4 mg Given 12/21/2010 1:09 PM CDT 0.4 mg 0.2-0.4 mg, Intravenous, EVERY 30 MIN PRN, severe pain, or if patient unable to take PO, Starting on 12/20/10 at 1221, Hold while on CORPORATE STRATEGY ANALYST., Post-procedure Given 12/20/2010 9:35 PM CDT 0.4 mg Given 12/20/2010 8:50 PM CDT 0.4 mg HYDROmorphone (DILAUDID) injection 0.2-0.4 Given 12/20/2010 10:55 AM CDT 0.2 mg mg 0.2-0.4 mg, Intravenous, EVERY 5 MIN PRN, moderate to severe pain, acute pain. May administer if RR is > 10 , Starting on 12/20/10 at 1002, If fentanyl is also ordered, use HYDROmorphone if pain control insufficient with fentanyl or a longer acting agent is needed. Max cumulative dose = 2 mg , PACU Given 12/20/2010 10:41 AM CDT 0.4 mg ibuprofen (ADVIL,MOTRIN) tablet 600 mg Given 12/23/2010 4:59 AM CDT 600 mg 600 mg, Oral, EVERY 6 HOURS PRN, other, inflammatory pain, Starting on 12/20/10 at 1221, Start when Ketorolac is discontinued., Post-procedure Given 12/22/2010 10:53 PM CDT 600 mg Given 12/22/2010 4:45 PM CDT 600 mg ketorolac (TORADOL) injection 30 mg Given 12/21/2010 5:07 PM CDT 30 mg 30 mg, Intravenous, EVERY 6 HOURS, First dose on 12/20/10 at 1045, For 6 doses, For patients less than 65 years of age and Crcl Greater than 50 mL/minute. May continue use for up to 5 days MAX if order renewed., Post-procedure Given 12/21/2010 9:12 AM CDT 30 mg Given 12/21/2010 3:44 AM CDT 30 mg levonorgestrel-ethinyl estradiol Given 12/23/2010 9:00 AM CDT 1 tablet (AVIANE,ALESSE,LESSINA) 0.1-20 MG-MCG per tablet 1 tablet 1 tablet, Oral, DAILY, First dose on 12/21/10 at 0900, Dispose as HW, Post-procedure Given 12/22/2010 9:00 AM CDT 1 tablet Given by Patient/Family 12/21/2010 9:00 AM CDT 1 tablet ondansetron (ZOFRAN) injection 4 mg Given 12/21/2010 2:40 PM CDT 4 mg 4 mg, Intravenous, EVERY 6 HOURS PRN, nausea, vomiting, Administer over 5 Minutes, Starting on 12/20/10 at 1221, This is Step 1 of nausea and vomiting protocol. If nausea not resolved in 15 minutes, go to Step 2 (Prochlorperazine)., Post-procedure Given 12/21/2010 8:35 AM CDT 4 mg oxycodone (ROXICODONE) immediate release Given 12/21/2010 8:04 A M CDT 10 mg tablet 5-10 mg 5-10 mg, Oral, EVERY 3 HOURS PRN, moderate to severe pain, Starting on 12/20/10 at 1221, Hold while on CORPORATE STRATEGY ANALYST., Post-procedure Given 12/21/2010 4:00 AM CDT 10 mg Given 12/21/2010 12:57 AM CDT 10 mg senna-docusate (SENOKOT-S;PERICOLACE) Given 12/23/2010 9:50 AM C DT 2 tablets 8.6-50 MG per tablet 1-2 tablet 1-2 tablet, Oral, 2 TIMES DAILY, First dose on 12/20/10 at 2100, If no bowel movement in 24 hours, increase to 2 tablets PO BID. Hold for loose stools. This is the first step of a three step constipation treatment protocol., Post-procedure Given 12/22/2010 9:17 PM CDT 2 tablets Given 12/22/2010 9:35 AM CDT 2 tablets sodium chloride 0.9 % flush 3 mL Given 12/22/2010 1:15 PM CDT 3 mLs 3 mL, Intravenous, EVERY 8 HOURS, First dose on 12/20/10 at 2115, to lock peripheral IV dormant line. Also Ordered Q1H PRN, Post-procedure Given 12/21/2010 10:00 PM CDT 3 mLs Given 12/21/2010 1:44 PM CDT 3 mLs documented in this encounter Active and Recently [...] bedside for TID PRN dressing change by MD., Post-procedure 2200 (Not Given - Provider: Sangeetha Martinez RN - Reason: Other - Comment: dressing change already done for day) 2200 (Not Given - Provider: Sangeetha Martinez RN - Reason: Other - Comment: dressing already chaged) ceFAZolin (ANCEF) 1 g vial to attach to IVPB (COMPLETE D) 0344 (New Bag - Provider: Aspen Tom, MALLORY) 1 g, Intravenous, for 30 Minutes, EVERY 8 HOURS, First dose on 12/20/10 at 1800, For 2 doses ketorolac (TORADOL) injection 30 mg (COMPLETED) 0344 ( Given - Provider: Aspen Tom, MALLORY)0912 (Given - Provider: iLzbet Marinelli, MALLORY)1707 (Given - Provider: Malu Casillas) 30 mg, [...] own med) 0900 (Given - Provider: Glory Arreola RN - Comment: pt has own supply) [...] Patient/family refused) 0935 (Given - Provider: Glory Arreloa RN)2117 (Given - Provider: Sangeetha Martinez RN) [...] 0515 (Canceled Entry)1315 (Given - Provider: Glory Arreola RN)2115 (Not Given - Provider: Sangeetha Martinez RN - Reason: Loss of IV access) 0515 (Not Given - Provider: Rosario Klein RN - Reason: Loss of IV access) 3 mL, Intravenous, EVERY 8 HOURS, First dose on 12/20/10 at 2115, to lock peripheral IV dormant line. Also Ordered Q1H PRN, Post-procedure Continuous Medication Order 12/21/2010 12/22/2010 12/23/2010 dextrose 5 % in lactated ringers infusion (CANCELED) 0 058 (New Bag - Provider: Aspen Tom RN)0600 (Rate/Dose Verify - Provider: Aspen Tom RN) 1,000 mL, Intravenous, at 75 mL/hr, CONT INUOUS, Starting 12/20/10 at 1230, Discontinue IV Fluids when PO tolerated., Post-procedure PRN Medication Order 12/21/2010 12/22/2010 12/23/2010 bisacodyl (DULCOLAX) suppository 10 mg (CANCELED) 2116 (Given - Provider: Sangeetha Martinez, MALLORY) 0951 (Given - Provider: Glory Arreola, MALLORY) 10 mg, Rectal, DAILY PRN, constipation, Starting 12/20/10 at 1221, Hold for loose stools. This is the third step of a three step constipation treatment protocol., Post-procedure hydrocodone-acetaminophen 5-325 MG per tablet 1-2 tabl et 1554 (Given - Provider: Malu Casillas)2159 (Given - Provider: Oscar Grimes) 0655 (Given - Provider: Marine Burris, MALLORY)1333 (Given - Provider: Glory Arreola RN)2006 (Given - Provider: Vira Pappas) 0207 (Given - Provider: Rosario martines, MALLORY)0815 (Given - Provider: Glory Arreola RN) 1-2 tablet, Oral, EVERY 6 HOURS PRN, mod erate to severe pain, Starting 12/21/10 at 1324, autosub for vicodin HYDROmorphone (DILAUDID) injection 0.2-0.4 mg (CANCELE D) 1309 (Given - Provider: Lizbet Marinelli RN) 0.2-0.4 mg, Intravenous, EVERY 30 MIN CA N, Starting 12/20/10 at 1221, Until Tu12/23/10 at 1526, severe pain, or if patient unable to take PO, Post- procedure, Hold while on CORPORATE STRATEGY ANALYST. ibuprofen (ADVIL,MOTRIN) tablet 600 mg 1842 (Given - Provide r: Malu Casillas) 0125 (Given - Provider: Anna Lane RN)1028 (Given - Provider: Glory Arreola RN)1645 (Given - Provider: Sangeetha Martinez, MALLORY)2253 (Given - Provider: Sangeetha Martinez, MALLORY) 0459 (Given - Provider: Rosario martines, MALLORY) 600 mg, Oral, EVERY 6 HOURS PRN, other, inflammatory pain, Starting 12/20/10 at 1221, Start when Ketorolac is discontinued., Post-procedure ondansetron (ZOFRAN) injection 4 mg (CANCELED) 0835 (G iven - Provider: Lizbet Marinelli, MALLORY)1440 (Given - Provider: Lizbet Marinelli, MALLORY) 4 mg, Intravenous, EVERY 6 HOURS PRN, na usea, vomiting, for 5 Minutes, Starting 12/20/10 at 1221, This is Step 1 of nausea and vomiting protocol. If nausea not resolved in 15 minutes, go to Step 2 (Prochlorperazine)., Post-procedure oxycodone (ROXICODONE) immediate release tablet 5-10 m g (CANCELED) 0057 (Given - Provider: Aspen Tom, MALLORY)0400 (Given - Provider: Aspen Tom RN - Comment: Pain increased after pt ambulated to BR)0804 (Given - Provider: Lizbet Marinelli RN) 5-10 mg, Oral, EVERY 3 HOURS PRN, modera te to severe pain, Starting 12/20/10 at 1221, Hold while on CORPORATE STRATEGY ANALYST., Post-procedure documented in this encounter Care Teams Spanish Lecturer Relationship Specialty Start Date End Date Chela Servin PA-C PCP - General Family Practice 08/05/10 03/23/13 [address] [place] [address] documented as of this encounter
--- OUTSIDE RECORDS SUMMARY | 2022-01-19 15:22 | XMS_ITS | Encounter Summary ---
:1990 Author Organization [place] [facility] Address [address] [place] [address] Care Team Providers Name Role Phone Chela Servin PA-C Primary Care Provider [phone] Reason for Visit (Routine) - Closed Specialty Diagnoses / Procedures Referred By Contact Refer red To Contact Cardiology Diagnoses ECHO COMPLETE ADULT W/O CONTRAST Procedure Notes: HEART PALPITATIONS/MITRAL VALVE PROLAPSE Zz Rh Echocar diography Procedures RADIOLOGY [address], [place] [address] Phone: Referral ID Status Reason Start Date Expiration Date Visits Requ ested Visits Authorized [id number] Closed 08/22/2012 08/22/2013 1 1 Encounter Details Date Type Department Care Team Description 08/23/2012 Hospital Encounter [place] [facility] Jayson Correa, Cardiopulmonary [address] [place] [address] Social History Tobacco Use Types [...] levonorgestrel-ethinyl Take 1 tablet by 84 tablet 0 013 10/25/2012 estradiol (AVIANE) 0.1-20 mouth daily. MG-MCG per tabletIndications: Irregular menstrual cycle documented as of this encounter Plan of Treatment Not on filedocumented as of this encounter Procedures Procedure Name Priority Date/Time Associated Diagnosis Comme nts ECHO COMPLETE Routine 08/23/2012 10:00 AM Results for this CDT procedure are i n the results section . documented in this encounter Results Echocardiogram (08/23/2012 10:00 AM CDT) [facility] Method Time Signature [facility] RADIOLOGY Interpretation Summary RESULTS Left ventricular systolic function is normal. Th e visual ejection fraction is estimated at 60-65%. The left ventricle is normal in size. T he right ventricle is normal in structure, function and size. ? ?This is a normal TTE. PatientHeight: 68 in PatientWeight: 110 lbs SystolicPressure: 121 mmHg DiastolicPressure: 79 mmHg BSA 1.6 m^2 Left Ventricle The left ventricle is normal in size. There is normal left ventricular wall thickness. Left ventricular systolic function is normal. The visual ejection fraction is estimated at 60-65%. No regional wall motion abnormalities noted. There is no thrombus seen in the left ventricle. Right Ventricle The right ventricle is normal in structure, function and siz e. There is no mass or thrombus in the right ventricle. Atria Normal left atrial size. Right atrial size is normal. There is no atrial shunt seen. Mitral Valve The mitral valve leaflets appear normal. There is no evidenc e of stenosis, fluttering, or prolapse. There is no mitral regurgitation noted. There is no mitral valve stenosis. Tricuspid Valve Normal tricuspid valve. The right ventricular systolic pressure is approximated at 20 mmHg plus the right atrial pressure. There is mild (1+) tricuspid regurgitation. Right ventricle systolic pressure estimate normal. There is no tricuspid stenosis. Aortic Valve The aortic valve is trileaflet. No aortic regurgitation is present. No aortic stenosis is present. Pulmonic Valve Normal pulmonic valve. There is trace pulmonic valvular regurgitation. There is no pulmonic valvular stenosis. Vessels The aortic root is normal size. Normal ascending aorta. The IVC is normal in size and reactivity with respirat ion, suggesting normal central venous pressure. The pulmonary artery is normal size. Pericardium The pericardium appears normal. There is no pleural effusion. Rhythm The rhythm was normal sinus. Procedure Complete Echo Adult. MMode 2D Measurements & Calculations IVSd: 0.92 cm LVIDd: 4.3 cm LVIDs: 2.7 cm LVPWd: 0.97 cm FS: 39 % LV mass(C)d: 132 grams Ao root diam: 2.8 cm LA dimension: 3.0 cm asc Aorta: 2.6 cm LA/Ao: 1.1 Doppler Measurements & Calculations MV E point: 101 cm/sec MV A point: 52 cm/sec MV E/A: 1.9 MV dec time: 0.22 sec TR Max joel: 226 cm/sec TR Max P mmHg Interpreting Physician: ??Leandro Anne, ??electronically signed on 08-23-2012 12:07:07 Anatomical Region Laterality Modality Echocardiography Specimen (Source) Anatomical Collection Method Collection Time Re ceived Time Location / / Volume Laterality 08/23/2012 10:00 AM CDT Jayson Lombardo MD CV ECHO ORDERABLES documented in this encounter Visit Diagnoses Not on filedocumented in this encounter Care Teams Rn Practitioner Relationship Specialty Start Date End Date Fidel-Chela Engel PA-C PCP - General Family Practice 08/05/10 03/23/13 [address] [place] [address] documented as of this encounter
--- OUTSIDE RECORDS SUMMARY | 2022-01-19 15:22 | XMS_ITS | Encounter Summary ---
:1990 Author Organization [place] Address [address] [place] [address]. [place] [address] Care Team Providers Name Role Phone Chela Servin PA-C Primary Care Provider Reason for Visit Reason Comments Refill Request BC Encounter Details Date Type Department Care Team Description 09/10/2011 Office Visit [facility] SELINA Servin [facility] [place] Chela Contreras PA-C (Primary Dx) [address] [facility] [id number] [place] [phone] Social History Tobacco Use Types Packs/Day Years Used Date Smoking Tobacco: Never Smokeless Tobacco: Never Alcohol Use Standard Drinks/Week Comments No 0 (1 standard drink = 0.6 oz pure alcoho l) Sex Assigned at Date Recorded Female 05/29/2020 7:33 PM CDT documented as of this encounter Last Filed Vital Signs Vital Sign Reading Time Taken Comments Blood Pressure 110/78 09/10/2011 9:51 AM CDT Pulse 81 09/10/2011 9:51 AM CDT Temperature 36.8 ??C (98.2 ??F) 09/10/2011 9:51 AM CDT Respiratory Rate - - Oxygen Saturation 99% 09/10/2011 9:51 AM CDT Inhaled Oxygen Concentration - - Weight 51 kg (112 lb 6.4 oz) 09/10/2011 9:51 AM CDT Height 171.7 cm (5' 7.6) 09/10/2011 9:51 AM CDT Body Mass Index 17.29 09/10/2011 9:51 AM CDT documented in this encounter Patient Instructions Patient InstructionsChela Servin PA-C - 09/10/2011 10:10 AM CDT Refilled Aviane oral contraceptive pills. documented in this encounter Progress Notes Chela Servin PA-C - 09/10/2011 10:07 AM CDT Chief Complaint Patient presents with ??? Refill Request BC SUBJECTIVE: Nataly Simon is a 20 year old female who present to clinic today with a chief complaint of: Here for refill on Aviane ocp that she has been on due to irregular menses. Works well with no side effects per patient. Has never been sexually active. Is not a smoker Medications updated and reviewed. Past, family and surgical history is updated and reviewed in the record. Past Medical History Diagnosis Date ??? Mitral valve prolapse ??? Pneumothorax on left Past Surgical History Procedure Date ??? Hc tooth extraction w/forcep 2008 ??? Thoracoscopic wedge resection lung 12/20/2010 Procedure:THORACOSCOPIC WEDGE RESECTION LUNG; Left Video Assisted Thoracoscopy, Apical Blebectomy ;Surgeon:JUSTA NGUYỄN; Location:[facility] OR Current Outpatient Prescriptions Medication Sig ??? levonorgestrel-ethinyl estradiol (AVIANE) 0.1-20 MG-MCG per tablet Take 1 tablet by mouth daily. ROS: Review of systems is negative for constitutional, skin, ENT, cardiorespiratory, GI, , and neuro except as stated above. Exam: GENERAL APPEARANCE: healthy, alert and no distress RESP: lungs clear to auscultation - no rales, rhonchi or wheezes CV: regular rates and rhythm, normal S1 S2, no S3 or S4 and no murmur, click or rub - ABDOMEN: soft, nontender, no HSM or masses and bowel sounds normal GU_female: deferred SKIN: no suspicious lesions or rashes ASSESSMENT: IRREGULAR MENSTRUATION (primary encounter diagnosis) Comment: Plan: levonorgestrel-ethinyl estradiol (AVIANE) 0.1-20 MG-MCG per tablet Chela Engel PA-C Patient Instructions Refilled Aviane oral contraceptive pills x 1 year. documented in this encounter Nursing Notes 09/10/2011 9:45 AM CDT >> SANDRA BONILLA [facility] Sep 10, 2011 9:57 AM Patient presents with: Refill Request - BC Initial BP 110/78 Pulse 81 Temp(Src) 98.2 ??F (36.8 ??C) (Oral) Ht 5' 7.6 (1.717 m) Wt 112 lb 6.4 oz (50.984 kg) BMI 17.29 kg/m2 SpO2 99% Estimated Body mass index is 17.29 kg/(m^2) as calculated from the following: Height as of this encounter: 5' 7.6(1.717 m). Weight as of this encounter: 112 lb 6.4 oz(50.984 kg).. BP completed using cuff size: regular Sandra CURIEL documented in this encounter Plan of Treatment Not on filedocumented as of this encounter Visit Diagnoses Diagnosis IRREGULAR MENSTRUATION - Primary Irregular menstrual cycle documented in this encounter Care Teams Bisque Brusher Relationship Specialty Start Date End Date Chela Servin PA-C PCP - General Family Practice 08/05/10 03/23/13 [address] [place] [address] documented as of this encounter
--- OUTSIDE RECORDS SUMMARY | 2022-01-19 15:22 | XMS_ITS | Encounter Summary ---
:1990 Author Organization [place] Address [address] [place] [address] Care Team Providers Name Role Phone Chela Servin PA-C Primary Care Provider Reason for Visit Reason Comments Chest Pain Encounter Details Date Type Department Care Team Description 08/22/2012 Office Visit [facility] Jayson Lombardo Chest tahmina n (Primary Dx); Clinic [place] MD Juwan Heart palpitations; [address] [facility] MVP (mitral valve prolapse) [place] [address] Social History Tobacco Use Types Packs/Day Years Used Date Smoking Tobacco: Never Smokeless Tobacco: Never Alcohol Use Standard Drinks/Week Comments No 0 (1 standard drink = 0.6 oz pure alcoho l) Sex Assigned at Date Recorded Female 05/29/2020 7:33 PM CDT documented as of this encounter Last Filed Vital Signs Vital Sign Reading Time Taken Comments Blood Pressure 121/79 08/22/2012 10:36 AM CDT Pulse 86 08/22/2012 10:36 AM CDT Temperature 36.7 ??C (98 ??F) 08/22/2012 10:36 AM CDT Respiratory Rate - - Oxygen Saturation 97% 08/22/2012 10:36 AM CDT Inhaled Oxygen Concentration - - Weight 49.8 kg (109 lb 11.2 oz) 08/22/2012 10:36 AM CDT Height 170.2 cm (5' 7) 08/22/2012 10:36 AM CDT Body Mass Index 17.18 08/22/2012 10:36 AM CDT documented in this encounter Progress Notes Jayson Lombardo MD - 08/22/2012 10:39 AM CDT SUBJECTIVE: Nataly Simon is a 21 year old female who presents to clinic today for the following health issues: Chest Pain ?? Onset: Started 4 weeks ago ?? Description (location/character/radiation/duration): All on the left of chest, abdomen, and back heart feels likes it is vibrating ?? Intensity: moderate ?? Accompanying signs and symptoms: Shortness of breath: YES Sweating: no Nausea/vomitting: no Palpitations: YES- in the past Other (fevers/chills/cough/heartburn/lightheadedness): no ?? History (similar episodes/previous evaluation): None ?? Precipitating or alleviating factors: Worse with exertion: no Worse with breathing: no Related to eating: no Better with burping: no ?? Therapies tried and outcome: None Patient with a history of previous left normal thorax status post thorascopic wedge resection with spontaneous rupture of blebs. Denies having shortness of breath or dyspnea to that level. States history of mitral valve prolapse diagnosed on echo many years ago. No family history of Chandana-Danlos or Ma rfan's, family members tall and thin as well. Problem list and histories reviewed & adjusted, as indicated. Additional history: as documented ROS: CONSTITUTIONAL:NEGATIVE for fever, chills, change in weight RESP: As above CV: As above OBJECTIVE: BP 121/79 Pulse 86 Temp 98 ??F (36.7 ??C) (Oral) Ht 5' 7 (1.702 m) Wt 109 lb 11.2 oz (49.76kg) BMI 17.18 kg/m2 SpO2 97% Body mass index is 17.18 kg/(m^2). GENERAL APPEARANCE: healthy, thin, alert and no distress HENT: mouth without ulcers or lesions NECK: no adenopathy RESP: lungs clear to auscultation - no rales, rhonchi or wheezes CV: regular rates and rhythm and no murmur, click or rub X-ray chest ordered and interpreted in the office today. X-ray shows: clear chest. Radiology read pending. EKG: Normal Sinus Rhythm, normal axis, normal intervals, no acute ST/T changes c/w ischemia, no LVH by voltage criteria ASSESSMENT/PLAN: 786.50 Chest pain (primary encounter diagnosis) Comment: Plan: XR Chest 2 Views, EKG 12-lead complete w/read - Clinics Atypical chest pain with normal chest x-ray and EKG. May be having pleurisy at times especially with previous surgery vs chest wall pain vs other. Does not appear to be cardiac. Follow-up if not improving. Recommend echocardiogram with symptoms and history of mitral valve issue historically without follow-up imaging done. 785.1 Heart palpitations Comment: Plan: Echocardiogram 424.0 MVP (mitral valve prolapse) Comment: Plan: Echocardiogram documented in this encounter Nursing Notes 08/22/2012 10:30 AM CDT >> LATOYA MARTINEZ Mon Aug 22, 2012 10:43 AM Patient presents with: Chest Pain Initial BP 121/79 Pulse 86 Temp 98 ??F (36.7 ??C) (Oral) Ht 5' 7 (1.702 m) Wt 109 lb 11.2 oz (49.76 kg) BMI 17.18 kg/m2 SpO2 97% Estimated Body mass index is 17.18 kg/(m^2) as calculated from the following: Height as of this encounter: 5' 7(1.702 m). Weight as of this encounter: 109 lb 11.2 oz(49.76 kg). BP completed using cuff size: regular Latoya Martinez SMA documented in this encounter Plan of Treatment Not on filedocumented as of this encounter Procedures Procedure Name Priority Date/Time Associated Diagnosis Comme nts XR CHEST 2 VIEWS Routine 08/22/2012 11:06 AM Chest Pain Resu lts for this CDT procedure are i n the results section. EKG 12-LEAD Routine 08/22/2012 Chest Pain Results for thi s COMPLETE W/READ - procedure are in CLINICS the results section. documented in this encounter Results XR Chest 2 Views (08/22/2012 11:06 AM CDT) Anatomical Region Laterality Modality Chest Other Specimen (Source) Anatomical Collection Method Collection Time Re ceived Time Location / / Volume Laterality 08/22/2012 11:06 AM CDT Impressions 08/22/2012 11:15 AM CDT IMPRESSION: Negative. ARNEL SANCHES MD Narrative 08/22/2012 11:15 AM CDT CHEST 2 VIEW* 08/22/2012 11:06 AM HISTORY: ??Chest pain, unspecified, Procedure Note Arnel Sanches MD - 08/22/2012Formatt ing of this note might be different from the original. CHEST 2 VIEW* 08/22/2012 11:06 AM HISTORY: Chest pain, unspecified, IMPRESSION IMPRESSION: Negative. ARNEL SANCHES MD Jayson Lombardo MD IMG DIAGNOSTIC IMAGING ORDER BITA EKG 12-lead complete w/read - Clinics (08/22/2012) Narrative This result has an attachment that is no t available. Jayson Lombardo MD ECG ORDERABLES documented in this encounter Visit Diagnoses Diagnosis Chest pain - Primary Chest pain, unspecified Heart palpitations Palpitations MVP (mitral valve prolapse) Mitral valve disorders documented in this encounter Care Teams Firmware Architect Relationship Specialty Start Date End Date Fidel-Chela Engel PA-C PCP - General Family Practice 08/05/10 03/23/13 [address] [place] [address] documented as of this encounter
--- OUTSIDE RECORDS SUMMARY | 2022-01-19 15:23 | XMS_ITS | Encounter Summary ---
:1990 Author Organization [facility] Address [address] [place] [address]. [place] [address] Care Team Providers Name Role Phone Chela Servin PA-C Primary Care Provider Reason for Referral Office Workup No CT/MRI - Closed Specialty Diagnoses / Procedures Referred By Contact Refer red To Contact Diagnoses Spontaneous pneumothorax Jayson Lombardo MD [facility] [address] [phone] [place] [address] Phone: Fax: Referral ID Status Reason Start Date Expiration Date Visits Requ ested Visits Authorized [id number] Closed 12/12/2010 06/10/2011 1 1 Reason for Visit Reason Comments RECHECK finished antibiotic about 10 days ago and still coughing Encounter Details Date Type Department Care Team Description [facility] Sp[facility]o us [facility] (Primary Dx); Clinic [facility] Echeverria MD Cough [address] [place] [address] Social History Tobacco Use Types Packs/Day Years Used Date Smoking Tobacco: Never Smokeless Tobacco: Never Alcohol Use Standard Drinks/Week Comments No 0 (1 standard drink = 0.6 oz pure alcoho l) Sex Assigned at Date Recorded Female 05/29/2020 7:33 PM CDT documented as of this encounter Last Filed Vital Signs Vital Sign Reading Time Taken Comments Blood Pressure 110/78 12/12/2010 3:06 PM CDT Pulse 81 12/12/2010 3:06 PM CDT Temperature 36.9 ??C (98.4 ??F) 12/12/2010 3:06 PM CDT Respiratory Rate - - Oxygen Saturation 97% 12/12/2010 3:06 PM CDT Inhaled Oxygen Concentration - - Weight 50.8 kg (112 lb) 12/12/2010 3:06 PM CDT Height 171.5 cm (5' 7.5) 12/12/2010 3:06 PM CDT Body Mass Index 17.28 12/12/2010 3:06 PM CDT documented in this encounter Progress Notes Jayson Lombardo MD - 12/12/2010 3:25 PM CDT SUBJECTIVE: Nataly Simon is a 19 year old female presenting for cough. Starting on October 15 started to have chest pains after lying on couch oddly - would have sharp pains with movement and deep breath. Then started having squeezing feeling that it felt like it was hard to take deep breath. Had odd sensations on left chest with bending over. Started to have cold on 11/25 with rhinorrhea then had cough. Was seen at [facility] - did not have x-ray and trial of Z-oj on 11/27. Now continues to cough when lying on left side and felt like she couldn't take a deep breath when lying down. No fever. No productive cough. Has history of mitral valve prolapse. No pleuritic pain now. No sick contacts. Feels like a bubble on the left chest that moves up and down when she moves positions. Patient reports that she has never smoked. She has never used smokeless tobacco. Problem list and past medical and surgical history reviewed. Review of systems: As above otherwise negative OBJECTIVE: BP 110/78 Pulse 81 Temp(Src) 98.4 ??F (36.9 ??C) (Oral) Ht 5' 7.5 (1.715 m) Wt 112 lb (50.803 kg) BMI 17.28 kg/m2 SpO2 97% LMP 12/10/2010 GENERAL APPEARANCE: healthy, alert, no distress RESP: decreased breath sounds left upper chest CV: regular rates and rhythm, normal S1 S2, no S3 or S4, no murmur, click or rub, no irregular beats X-ray chest ordered and interpreted in the office today. X-ray shows: left side moderate 20-25% pneumothorax. Discussed with radiology. ASSESSMENT/PLAN: 512.89D Spontaneous pneumothorax (primary encounter diagnosis) Comment: Plan: CT Chest w/o contrast, PULMONARY MEDICINE REFERRAL, CT Chest w contrast* Will set up for CT chest to further evaluate for blebs with spontaneous pneumothorax. Discussed with pulmonology and they duy that with patient with pneumothorax that is stable since starting to havesymptoms several weeks ago can be followed outpatient in pulmonology clinic. She will go to ER if worsening SOB or chest pain. Can take NSAIDs for pain. 786.2 Cough Comment: Plan: X-ray Chest 2 vws* documented in this encounter Nursing Notes 12/12/2010 3:00 PM CDT >> HILTON AWAN WedDec 12, 2010 3:08 PM Patient presents with: RECHECK - finished antibiotic about 10days ago and still coughing Initial BP 110/78 Pulse 81 Temp(Src) 98.4 ??F (36.9 ??C) (Oral) Ht 5' 7.5 (1.715 m) Wt 112 lb (50.803 kg) BMI 17.28 kg/m2 SpO2 97% LMP 12/10/2010 Estimated Body mass index is 17.28 kg/(m^2) as calculated from the following: Height as of this encounter: 5' 7.5(1.715 m). Weight as of this encounter: 112 lb(50.803 kg).. BP completed using cuff size: regular Hilton Awan FABRIC WORKER FOREMAN documented in this encounter Plan of Treatment Scheduled Referrals Name Type Priority Associated Diagnoses Order S chedule PULMONARY MEDICINE Referral Routine Spontaneous pneumothor ax Ordered: 12/12/2010 REFERRAL documented as of this encounter Procedures Procedure Name Priority Date/Time Associated Diagnosis Comme nts CT CHEST W CONTRAST Routine 12/12/2010 5:34 PM Spontaneous Re sults for this CDT pneumothorax procedure are i n the results section. XR CHEST 2 VIEWS Routine 12/12/2010 3:36 PM Cough Resul ts for this CDT procedure are i n the results section. documented in this encounter Results CT Chest w contrast* (12/12/2010 5:34 PM CDT) Anatomical Region Laterality Modality Chest, SUBRAD CT BODY, UMP CT CHEST Comp uted Tomography Specimen (Source) Anatomical Collection Method Collection Time Re ceived Time Location / / Volume Laterality 12/12/2010 5:34 PM CDT Impressions 12/12/2010 7:[address] CHEST WITH CONTRAST ?? Dec 12, 2010 5 :34:00 PM ?? HISTORY: Spontaneous left pneumothorax. Cough. Dyspnea. Rule out blebs. TECHNIQUE: CT chest with ??intravenous c ontrast. 80 mL Optiray 350. COMPARISON: None. FINDINGS: There is a moderate size left pneumothorax. There is a single bleb in the left lung apex measur ing approximately 1.3 cm. The lungs are clear. There is no mediastinal , hilar or axillary lymph node enlargement. There is a small left pleur al effusion. The heart size is normal. Images through the upper abdomen show no acute abnormality. IMPRESSION: 1. Moderate size left pneumothorax. 2. Small left pleural effusion. 3. Solitary small bleb at the left lung apex. Jayson JACKSON CT ORDERABLES X-ray Chest 2 vws* (12/12/2010 3:36 PM CDT) Anatomical Region Laterality Modality Chest Other Specimen (Source) Anatomical Collection Method Collection Time Re ceived Time Location / / Volume Laterality 12/12/2010 3:36 PM CDT Impressions 12/12/2010 4:00 PM CDT CHEST TWO VIEW* ??Dec 12, 2010 3:36:00 P M HISTORY: ??Cough. FINDINGS: Moderate to large left apical pneumothorax. Chest otherwise negative. Jayson JACKSON DIAGNOSTIC IMAGING ORDER BITA documented in this encounter Visit Diagnoses Diagnosis Spontaneous pneumothorax - Primary Other pneumothorax Cough documented in this encounter Care Teams Grain Oilseed Or Pasture Grower Relationship Specialty Start Date End Date Fidel-Chela Engel PA-C PCP - General Family Practice 08/05/10 03/23/13 [address] [place] [address] documented as of this encounter
--- OUTSIDE RECORDS SUMMARY | 2022-01-19 15:23 | XMS_ITS | Encounter Summary ---
:1990 Author Organization [facility] Address [address] [place] [address] Care Team Providers Name Role Phone Olivia Moreno MD Primary Care Provider Encounter Details Date Type Department Care Team Description 03/26/2008 Therapy Visit [facility] Andrew Modi Lumbar Radiculopathy [id number] [address] PT (Primary Dx) [place] [address] [place] [phone] [place] [address] Social History Tobacco Use Types Packs/Day Years Used Date Smoking Tobacco: Never Alcohol Use Standard Drinks/Week Comments No 0 (1 standard drink = 0.6 oz pure alcoho l) Sex Assigned at Date Recorded Female 05/29/2020 7:33 PM CDT documented as of this encounter Progress Notes Andrew Modi - 03/26/2008 4:44 PM CST Initial evaluation was completed. Please refer to the daily flowsheet for treatment today and total treatment time. Does this patient have Medicare or Medicaid as primary or secondary insurance? NO OL PHOTOGRAPH EDITOR documented in this encounter Plan of Treatment Not on filedocumented as of this encounter Procedures Procedure Name Priority Date/Time Associated Diagnosis Comme nts [facility] MANUAL THER Routine 03/26/2008 4:44 PM SCHOOL PHOTOGRAPH EDITOR Lumbar Radiculo mercedes TECH,1+REGIONS,EA 15 MIN ZZC THERAPEUTIC Routine 03/26/2008 4:44 PM SCHOOL PHOTOGRAPH EDITOR Lumbar Radiculo mercedes EXERCISES documented in this encounter Visit Diagnoses Diagnosis Lumbar radiculopathy - Primary Thoracic or lumbosacral neuritis or radi culitis, unspecified documented in this encounter Care Teams Excellence Leader Relationship Specialty Start Date End Date Olivia Moreno MD PCP - General 09/19/03 08/04/[address] [address] documented as of this encounter
--- OUTSIDE RECORDS SUMMARY | 2022-01-19 15:23 | XMS_ITS | Encounter Summary ---
:1990 Author Organization [facility] Address [address] [place] [address]. [place] [address] Care Team Providers Name Role Phone Chela Servin PA-C Primary Care Provider Reason for Visit Reason Comments Refill Request control medication Encounter Details Date Type Department Care Team Description 08/19/2010 Office Visit [facility], Screen ing for unspecified disorder of blood and blood-forming organs; [facility] Chela Contreras PA-C Lipid screening; [address] Screening for diabetes mellitus; [place], [place] IRREGULAR MEN STRUATION; [id number] Routine general medical examination at a health care facility; [phone] Screening for t hyroid disorder; (Work) Vaginitis Social History Tobacco Use Types Packs/Day Years Used Date Smoking Tobacco: Never Smokeless Tobacco: Never Alcohol Use Standard Drinks/Week Comments No 0 (1 standard drink = 0.6 oz pure alcoho l) Sex Assigned at Date Recorded Female 05/29/2020 7:33 PM CDT documented as of this encounter Last Filed Vital Signs Vital Sign Reading Time Taken Comments Blood Pressure 108/80 08/19/2010 8:12 AM CDT Pulse 79 08/19/2010 8:12 AM CDT Temperature 37 ??C (98.6 ??F) 08/19/2010 8:12 AM CDT Respiratory Rate - - Oxygen Saturation 100% 08/19/2010 8:12 AM CDT Inhaled Oxygen Concentration - - Weight 48.5 kg (107 lb) 08/19/2010 8:12 AM CDT Height 172.1 cm (5' 7.75) 08/19/2010 8:12 AM CDT shoes off Body Mass Index 16.39 08/19/2010 8:12 AM CDT documented in this encounter Patient Instructions Patient InstructionsAaChela Lennon - 08/19/2010 1:28 PM CDT Routine [facility] Routine checkups can find treatable problems early. For many medical problems, early treatment can help prevent more serious complications. The value of checkups and how often you have them depend mainly on your age. Your personal and family medical histories are also important. What needs to be checked and how often? The tests listed below are recommended for routine healthcare by the US Preventive Services Task Force (USPSTF) or the [place] [employer] (AAFP). They are the minimum checkup recommendations. Be sure to discuss with your healthcare provider how often you should have physical exams andhow often you need these or other tests. ?? Blood pressure measurement: every 2 years. ?? BMI: Body mass index to screen for overweight and obesity every year. ?? Cholesterol test: if you are age 45 or older. You may start having this test at an earlier age ifyou have a family history of high cholesterol. ?? Fasting blood sugar for type 2 diabetes: every 3 years if you are 45 years old or if your blood pressure, cholesterol, or weight are high or you have a family history of type 2 diabetes. ?? Pap test: Yearly if you have ever had sex and have not had your uterus removed until 3 consecutive normal pap tests, then at least every 3 years. Your provider may recommend more frequent screening if you have had any abnormal test results in the past or if you have an increased risk for cervical cancer. ?? Chlamydia test: if you are sexually active and 25 years old or younger or if you have a high riskof sexually transmitted disease (STD). ?? Mammogram: When you should start having these exams and how often depends on your risk for breastcancer. All women age 50 to 74 years old, who are in good health, should be screened for breast cancer with mammography every 1 to 2 years after counseling by their healthcare provider about the possible risks and benefits of the procedure. It is unclear if mammogram is advisable between 40 and 50 years old and should be discussed with your provider. If you are 75 or older, ask your provider how often you should have a mammogram. ?? Colorectal cancer test: if you are 50 or older. Recommended tests include: ?? sigmoidoscopy every 5 years with a test for blood in the stool, called the fecal occult blood test (FOBT) or fecal immunochemical test (FIT) every three years. ?? Annual fecal occult blood test (FOBT) or fecal immunochemical test (FIT). ?? Colonoscopy every 10 years. You may need to start colorectal cancer screening earlier if someone in your immediate family has had colon cancer, especially if their cancer occurred before they were 50 years old. ?? Bone density test (DEXA): for osteoporosis (thinning of bones): at age 65 years or earlier if youhave increased risk (smoking, lack of exercise, steroid use, previous fractures, family history, etc.). ?? Hearing test: if you are 65 or older. ?? Vision test: if you are 65 or older. Remember, these are the minimum recommendations for routine tests. You and your healthcare provider must discuss what is right for you based on your symptoms and your personal and family medical history. Many other tests are often done at routine checkups, but there is no current evidence that they are helpful as routine screening tests for healthy women. Examples of such tests are a CBC (complete blood count), thyroid tests, and urine tests. When you have no symptoms of illness, you should discuss the pros and cons of these and other tests with your healthcare provider. Each test involves some expense. What shots do I need? ?? Tetanus (Td) booster shot at least every 10 years. If you are under age 65, you should get the new Tdap booster to protect you better against whooping cough (pertussis) as well as tetanus. If you are 65 or older, this new vaccine has not yet been approved for your age. Because babies are most susceptible to complications from whooping cough, Tdap is especially recommended for adults caring for children, even if it has been less than 10 years since your last booster shot. ?? Flu shot every fall if you are 50 or older, you have a high risk for complications from the flu, you might spread the flu to others who are at high risk, or you just want to decrease your risk of getting the flu. Women who will be during flu season should have a flu shot. ?? Measles, mumps, and rubella shot (MMR) if you were born after 1957 unless you have already had the shot or the diseases. Depending on when you received your measles shot, you may need a second one. Ask your healthcare provider. ?? Hepatitis A shot if you are at risk, for example, through travel or your job (including service) or if you have liver disease, use illegal drugs, or have HIV. ?? Hepatitis B shot for all teens and young adults, age 12 to 24 years, who have not had hepatitis or a hepatitis shot and for all adults who are at risk of infection. This includes, for example, womenwho have liver disease, women who have more than 1 sex partner or whose partner has more than 1 partner, or who have a sexually transmitted infection, abuse IV drugs, or plan to travel where hepatitis B is common. ?? Pneumococcal pneumonia shot if you are age 65 or older. You may need the shot at a younger age ifyou have a high-risk medical condition, such as diabetes or lung, kidney, heart disease, or if you are a smoker. You may need a second pneumonia shot if you got your first shot when you were younger than 65 and it was more than 5 years ago. ?? Varicella (chickenpox) if you have never had chickenpox. ?? Zoster (shingles) vaccine: if you are 60 or older, even if you have already had shingles. The vaccine does not always prevent shingles, but, if you have had the shot and then get shingles, it can reduce the pain caused by the infection. What other things I can do to stay healthy? ?? Breast self-exams: Check your breasts every month. ?? Substance use: Don't use tobacco or illegal drugs. Keep alcohol use to 2 drinks daily or less. ?? Diet and exercise: Try to keep your weight at a comfortable, healthy level. Limit the fat and cholesterol in your diet. Eat a lot of whole grains, fruits, and vegetables. Get regular physical activity or exercise. Diet/supplements with at least 0.8mg folic acid for women of reproductive age to prevent neural tube defects in children ?? Injury prevention: Use seatbelts when in a car. Use a helmet when you ride a motorcycle, ATV, or bicycle. Use life jackets when boating. Handle firearms safely and lock in cabinet when not in use. Install smoke detectors in your home and change batteries annually. ?? Dental health: Visit your dentist regularly. [place] your teeth with fluoride toothpaste daily. Also floss your teeth daily. ?? Sexual behavior: Prevent sexually transmitted infections by avoiding high- risk sexual behavior. Use latex or polyurethane condoms every time you have sexual contact if you are not in a long-term relationship with just one partner who has no other partners. ? documented in this encounter Progress Notes Jed Weiss - 08/19/2010 8:35 AM CDT CC: Nataly Simon is an 19 year old woman who presents for preventive health visit. Besides routine health maintenance, she would like to discuss vaginal itching. Is not sexuall;y active. Occasionally has vaginal itching but no discharge. Goes away . Healthy Habits: Do you get at least three servings of calcium containing foods daily (dairy, green leafy vegetables,etc.)? yes Outside of work or daily activities, how many days per week do you exercise for 30 minutes or longer? none Estimated Body mass index is 16.39 kg/(m^2) as calculated from the following: Height as of this encounter: 5' 7.75[shoes off[(1.721 m). Weight as of this encounter: 107 lb(48.535 kg). Have you had an eye exam in the past two years? no Do you see a dentist twice per year? yes Staff Signature raa PHQ-2 Over the last two weeks- Have you been bothered by little interest or pleasure in doing things? No Over the last two weeks- Have you been feeling down, depressed, or hopeless? No Abuse: Current or Past(Physical, Sexual or Emotional)- no Do you feel safe in your environment - Yes History Substance Use Topics ??? Smoking status: Never Smoker ??? Smokeless tobacco: Never Used ??? Alcohol Use: No The patient does not drink >3 drinks per day nor >7 drinks per week. Reviewed orders with patient. Reviewed health maintenance and updated orders accordingly - Yes Staff Signature raa History of abnormal Pap smear: No All Histories reviewed and updated in [facility]. ROS: C: NEGATIVE for fever, chills, change [...] unusual urinary or vaginal symptoms. Periods are regular. M: NEGATIVE for significant arthralgias or myalgia N: NEGATIVE for weakness, dizziness or paresthesias P: NEGATIVE for changes in mood or affect OBJECTIVE: BP 108/80 Pulse 79 Temp(Src) 98.6 ??F (37 ??C) (Oral) Ht 5' 7.75 (1.721 m) Wt 107 lb (48.535 kg) BMI 16.39 kg/m2 SpO2 100% LMP 07/19/2010 GENERAL APPEARANCE: healthy, alert and no distress [...] - no rales, rhonchi or wheezes BREAST: normal without masses, tenderness or nipple discharge and no palpable axillary masses or adenopathy CV: regular rates and rhythm, normal S1 S2, no S3 or S4, no murmur, click or rub, no peripheral edema and peripheral pulses strong ABDOMEN: soft, nontender, no hepatosplenomegaly, no masses and bowel sounds normal (female):deferred MS: no musculoskeletal defects are noted and gait is age appropriate without ataxia SKIN: no suspicious lesions or rashes NEURO: Normal strength and tone, sensory exam grossly normal, mentation intact and speech normal PSYCH: mentation appears normal and affect normal/bright COUNSELING: regular exercise weight management healthy diet/nutrition vision screening hearing screening contraception family planning safe sex practices/STD prevention self breast exam ATP III Guidelines ICSI Preventive Guidelines ASSESSMENT/PLAN: V78.9 Screening for unspecified disorder of blood and blood-forming organs Comment: Plan: CBC with platelets V77.91D Lipid screening Comment: Plan: Lipid panel reflex to direct LDL V77.1 Screening for diabetes mellitus Comment: Plan: Glucose 626.4 IRREGULAR MENSTRUATION Comment: Plan: levonorgestrel-ethinyl estradiol (AVIANE) 0.1-20 MG-MCG per tablet V70.0 Routine general medical examination at a health care facility Comment: Plan: V77.0 Screening for thyroid disorder Comment: Plan: TSH, T4 FREE 616.10Y Vaginitis Comment: Plan: Wet prep D/c any products with perfume or dye. Use mild soap such as ivory or dove sensitive skin. documented in this encounter Nursing Notes 08/19/2010 8:00 AM CDT >> JED Vogel Aug 19, 2010 8:15 AM Patient presents with: Refill Request - control medication Initial BP 108/80 Pulse 79 Temp(Src) 98.6 ??F (37 ??C) (Oral) Ht 5' 7.75 (1.721 m) Wt 107 lb (48.535 kg) BMI 16.39 kg/m2 SpO2 100% LMP 07/19/2010 Estimated Body mass index is 16.39 kg/(m^2) as calculated from the following: Height as of this encounter: 5' 7.75[shoes off[(1.721 m). Weight as of this encounter: 107 lb(48.535 kg).. BP completed using cuff size: regular Health maintenance- up to date Jed Weiss CMA documented in this encounter Plan of Treatment Not on filedocumented as of this encounter Procedures Procedure Name Priority Date/Time Associated Diagnosis Comme nts TSH Routine 08/19/2010 8:49 AM Screening for Results for this CDT thyroid disorder procedure a re in the results section. T4 FREE Routine 08/19/2010 8:49 AM Screening for Results for this CDT thyroid disorder procedure a re in the results section. LIPID REFLEX TO Routine 08/19/2010 8:49 AM Lipid screening Res ults for this DIRECT LDL PANEL CDT procedure a re in the results section. GLUCOSE Routine 08/19/2010 8:49 AM Screening for Results for this CDT diabetes mellitus procedure are in the results section. CBC WITH PLATELETS Routine 08/19/2010 8:49 AM Screening for Re sults for this CDT unspecified disorder procedu re are in of blood and the results blood-forming organs section . WET PREPARATION Routine 08/19/2010 8:43 AM Vaginitis Result s for this CDT procedure are i n the results section. documented in this encounter Results T4 FREE (08/19/2010 8:49 AM CDT) athologist Signature T4 Free 1.00 0.70 - 1.85 [place] [facility] ng/dL CLINIC LAB Specimen Anatomical Collection Method Collection Time Receive d Time (Source) Location / / Volume Laterality Blood specimen 08/19/2010 8:49 AM 011 8:50 (specimen) CDT AM CDT Chela Servin PA-C LAB - BLOOD ORDERABLES Performing Organization Address City/[facility]/ZIP Code Phon e Number [facility] [address] [place] [phone] [facility] LAB TSH (08/19/2010 8:49 AM CDT) athologist Signature TSH 1.40 0.4 - 5.0 [place] [facility] LAB Specimen Anatomical Collection Method Collection Time Receive d Time (Source) Location / / Volume Laterality Blood specimen 08/19/2010 8:49 AM 011 8:50 (specimen) CDT AM CDT Chela Servin PA-C LAB - BLOOD ORDERABLES Performing Organization Address City/[facility]/ZIP Code Phon e Number [facility] [address] [place] [id number] [facility] LAB Glucose (08/19/2010 8:49 AM CDT) athologist Signature Glucose 83 60 - 99 [facility] mg/dL CLINIC LAB Specimen Anatomical Collection Method Collection Time Receive d Time (Source) Location / / Volume Laterality Blood specimen 08/19/2010 8:49 AM 011 8:50 (specimen) CDT AM CDT Chela Servin PA-C LAB - BLOOD ORDERABLES Performing Organization Address City/[facility]/ZIP Code Phon e Number [address] [address] [phone] [facility] Lipid panel reflex to direct LDL (08/19/2010 8:49 AM CDT) athologist Signature Cholesterol 148 0 - 200 [facility] mg/dL CLINIC LAB Comment: LDL Cholesterol is the primary guide to therapy. The NCEP recommends further evaluation of: patients with cholesterol greater than 200 mg/dL if additional risk facto rs are present, cholesterol greater than 240 mg/dL, triglycerides greater than 1 50 mg/dL, or HDL less than 40 mg/dL. Triglycerides 73 0 - 150 mg/dL [facility] HDL Cholesterol 61 50 - 110 mg/dL [facility] LDL Cholesterol Calculated 73 0 - 129 mg/dL [facility] Comment: LDL Cholesterol is the primary guide to therapy: LDL-cholesterol goal in high risk patients is <100 mg/dL and in very high risk patients is <70 mg/dL. VLDL-Cholesterol 15 0 - 30 mg/dL [facility] Cholesterol/HDL Ratio 2.4 0.0 - 5.0 [facility] Specimen Anatomical Collection Method Collection Time Receive d Time (Source) Location / / Volume Laterality Blood specimen 08/19/2010 8:49 AM 011 8:50 (specimen) CDT AM CDT Chela Servin PA-C LAB - BLOOD ORDERABLES Performing Organization Address City/[facility]/ZIP Code Phon e Number [facility] [address] [place] [phone] [facility] CBC with platelets (08/19/2010 8:49 AM CDT) P athologist Signature WBC 4.9 4.0 - 11.0 [place] 10e9/L [facility] RBC Count 4.70 3.8 - 5.2 [place] 10e12/L [facility] Hemoglobin 14.0 11.7 - [place] 15.7 g/dL [facility] Hematocrit 41.1 35.0 - [place] 47.0 % [facility] MCV 87 78 - 100 [place] fl [facility] MCH 29.8 26.5 - [place] 33.0 pg [facility] MCHC 34.1 31.5 - [place] 36.5 g/dL [facility] RDW 13.2 10.0 - [place] 15.0 % [facility] Platelet Count 150 150 - 450 [place] 10e9/L [facility] Specimen Anatomical Collection Method Collection Time Receive d Time (Source) Location / / Volume Laterality Blood specimen 08/19/2010 8:49 AM 011 8:50 (specimen) CDT AM CDT Chela Servin PA-C LAB - BLOOD ORDERABLES Performing Organization Address City/[facility]/ZIP Code Phon e Number [address] [phone] [facility] LAB Wet prep (08/19/2010 8:43 AM CDT) Patholo gist Method Time Signature Specimen Vagina [facility] Description [facility] Wet Prep No Trichomonas seen CORRECTE D ON 08/19 AT 0910: PREVIOUSLY REPORTED Clue cells [facility] seen [place] No clue cells seen CORRECTED ON 08/19 AT 0910: PREVIOUSLY REPORTED Yeast seen CLINIC LAB No yeast seen Micro Report [facility]AL [place] Status 08/19/2010 [facility] Specimen Anatomical Collection Method Collection Time Receive d Time (Source) Location / / Volume Laterality 08/19/2010 8:43 AM 1 8:44 CDT AM CDT Chela Servin PA-C LAB - MICRO GENERAL OR DERABLES Performing Organization Address City/State/ZIP Code Phon e Number [facility] [address] [place] [address] [facility] documented in this encounter Visit Diagnoses Diagnosis Screening for unspecified disorder of bl ood and blood-forming organs Lipid screening Screening for lipoid disorders Screening for diabetes mellitus IRREGULAR MENSTRUATION Irregular menstrual cycle Routine general medical examination at a health care facility Screening for thyroid disorder Vaginitis Vaginitis and vulvovaginitis, unspecifie d documented in this encounter Care Teams Diabetes Educator Relationship Specialty Start Date End Date Chela Servin PA-C PCP - General Family Practice 08/05/10 03/23/13 [id number] [place] [address] documented as of this encounter
--- OUTSIDE RECORDS SUMMARY | 2022-01-19 15:23 | XMS_ITS | Encounter Summary ---
:1990 Author Organization [facility] Address [address] [place] [id number] Care Team Providers Name Role Phone Olivia Moreno MD Primary Care Provider Reason for Visit Reason Onset Date Comments Medication Request 08/31/2008 Tamiflu Encounter Details Date Type Department Care Team Description 08/31/2008 [facility] Olivia Moreno MD Medication Request Clinic [facility] (Tamiflu) [address] [id number] [place] [address] (Wo rk) Social History Tobacco Use Types Packs/Day Years Used Date Smoking Tobacco: Never Alcohol Use Standard Drinks/Week Comments No 0 (1 standard drink = 0.6 oz pure alcoho l) Sex Assigned at Date Recorded Female 05/29/2020 7:33 PM CDT documented as of this encounter Miscellaneous Notes Telephone Encounter - Lily Hernandez - 08/31/2008 4:54 PM CDT Mom notified. Lily Hernandez RN Telephone Encounter - Olivia Moreno - 08/31/2008 3:51 PM CDT Please let pt know, not needed treatment for asymptomatic pt according to MD- unless pt is symptomatic Olivia Moreno MD Telephone Encounter - Lily Hernandez - 08/31/2008 12:15 PM CDT Mom states that patient was at a sleep over with a friend who tested positive for (flu)swine. Patient is leaving for a mission trip and will be gone for two weeks. Doctor that is going on mission trip recommended that the kids bring along the Tamiflu. Can she have an Rx? Lily Hernandez RN documented in this encounter Plan of Treatment Not on filedocumented as of this encounter Visit Diagnoses Not on filedocumented in this encounter Care Teams Diesel Engine Inspector Relationship Specialty Start Date End Date Olivia Moreno MD PCP - General 09/19/03 08/04/[address] [address] documented as of this encounter
--- OUTSIDE RECORDS SUMMARY | 2022-01-19 15:23 | XMS_ITS | Encounter Summary ---
:1990 Author Organization [facility] Address [address] 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 Exam last pap was 02/19, last pap was normal Blood Draw pt IS fasting Encounter Details Date Type Department Care Team Description 03/11/2009 Office Visit [facility] Micheal Servin Physical Examination (Primary Dx); [facility] [place] Chela Contreras PA-C Irregular Menstrual Cycle; [address] Screening for Unspecified Disorder of Bl ood and Blood-Forming Organs; [place], [place] Screening for Thyroid Disorder; [id number] Screening for Diabetes Mellitus; [phone] Routine General Medical Examination at a Health Care Facility; (Work) Chronic Low Back Pain Social History Tobacco Use Types Packs/Day Years Used Date Smoking Tobacco: Never Alcohol Use Standard Drinks/Week Comments No 0 (1 standard drink = 0.6 oz pure alcoho l) Sex Assigned at Date Recorded Female 05/29/2020 7:33 PM CDT documented as of this encounter Last Filed Vital Signs Vital Sign Reading Time Taken Comments Blood Pressure 106/66 03/11/2009 9:05 AM REAMING MACHINE OPERATOR Pulse 62 03/11/2009 9:05 AM REAMING MACHINE OPERATOR Temperature 36.4 ??C (97.6 ??F) 03/11/2009 9:05 AM REAMING MACHINE OPERATOR Respiratory Rate - - Oxygen Saturation 98% 03/11/2009 9:05 AM REAMING MACHINE OPERATOR Inhaled Oxygen Concentration - - Weight 47.6 kg (105 lb) 03/11/2009 9:05 AM REAMING MACHINE OPERATOR Height 171.5 cm (5' 7.5) 03/11/2009 9:05 AM REAMING MACHINE OPERATOR Body Mass Index 16.2 03/11/2009 9:05 AM REAMING MACHINE OPERATOR documented in this encounter Progress Notes Chela Servin - 03/11/2009 9:36 AM CST SUBJECTIVE: CC: Nataly Simon is a 18 year old female who presents for routine health maintenance Patient is not sexually active, never been. Does not want pap if she doesn't have to have it. HPI: 1) Hurt her back on Dec 2006, moving weights. [place] like she pulled herself in left lower back. [place] back spasm. This has been a recurring problem. Last year did some PT and helped but stilla problem. Has felt a lump in back since she originally got this. Pain radiates down left leg and has some toes numbness especially little toe and pad of foot. HISTORIES: Patient Active Problem List Diagnoses Code ??? IRREGULAR MENSTRUATION 626.4 Past Medical History Diagnosis Date ??? Mitral Valve Prolapse Past Surgical History Procedure Date ??? Dental surgery procedure 2008 Current outpatient prescriptions Medication Sig ??? ORTHO TRI-CYCLEN LO 0.025 MG OR TABS 1 TABLET DAILY Allergies Allergen Reactions ??? No Known Drug Allergies History Social History ??? Marital Status: Single Spouse Name: N/A Number of Children: N/A ??? Years of Education: N/A Occupational History ??? Not on file. Social History Main Topics ??? Tobacco Use: Never ??? Alcohol Use: No ??? Drug Use: Not on file ??? Sexually Active: No Other Topics Concern ??? 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 Lives with parents Family History Problem Relation ??? Family History Negative No family hx of ??? Hypertension Mother ??? Family History Negative Father ??? Heart Maternal Grandfather ??? Diabetes Maternal Grandfather ??? Colon CA Maternal Grandfather ??? Prostatic CA Maternal Grandfather ??? Hypertension Maternal Grandmother ??? Breast CA Paternal Grandmother ??? Prostatic CA Paternal Grandfather HEALTH MAINTENANCE: Health Maintenance Topic Date Due ??? Pap q 1 yr diagnostic [employer] message 2002 ??? Tetanus immunization ( [facility] assigned) 12/28/2011 REVIEW OF OUTSIDE RECORDS: NO ROS: CONSTITUTIONAL:NEGATIVE for fever, chills, change in weight INTEGUMENTARY/SKIN: NEGATIVE for worrisome rashes, moles or lesions EYES: NEGATIVE for vision changes or irritation ENT/MOUTH: NEGATIVE for ear, mouth and throat problems RESP:NEGATIVE for significant cough or SOB BREAST: NEGATIVE for masses, tenderness or discharge CV: NEGATIVE for chest pain, palpitations or peripheral edema GI: NEGATIVE for nausea, abdominal pain, heartburn, or change in bowel habits : normal menstrual cycles MUSCULOSKELETAL: POSITIVE for back pain worse on left NEURO: NEGATIVE for weakness, dizziness or paresthesias ENDOCRINE: NEGATIVE for temperature intolerance, skin/hair changes HEME/ALLERGY/IMMUNE: NEGATIVE for bleeding problems PSYCHIATRIC: NEGATIVE for changes in mood or affect BP 106/66 Pulse 62 Temp (Src) 97.6 ??F (36.4 ??C) (Oral) Ht 5' 7.5 (1.715 m) Wt 105 lb (47.628 kg) SpO2 98% LMP 02/25/2009 EXAM: GENERAL APPEARANCE: healthy, alert and no distress [...] LYMPHATICS: normal ant/post cervical and supraclavicular nodes ABDOMEN: soft, nontender, without hepatosplenomegaly or masses and bowel sounds normal (female): normal cervix, adnexae, and uterus without masses or discharge and rectal exam normal without masses-guaiac negative stool MS: extremities normal- no gross deformities noted and Back exam antalgic and limited rom flexion due to pain. SKIN: no suspicious lesions or rashes NEURO: Normal strength and tone, mentation intact and speech normal PSYCH: mentation appears normal and affect normal/bright ASSESSMENT/PLAN V70.0F Routine Physical Examination (primary encounter diagnosis) 626.4 Irregular Menstrual Cycle Comment: heavy, frequent cycles, anovulation? Plan: ORTHO TRI-CYCLEN LO 0.025 MG OR TABS V78.9 Screening for Unspecified Disorder of Blood and Blood-Forming Organs Comment: Plan: CBC WITH PLATELETS V77.0 Screening for Thyroid Disorder Comment: Plan: TSH W/FREE T4 REFLEX V77.1 Screening for Diabetes Mellitus Comment: Plan: GLUCOSE PLAN: Recommend yearly physical with no paps needed until sexually active. Contraception methods discussed Discussed calcium intake Exercise encouraged minimum 30 minutes daily Fasting lipid profile obtained Annual flu shot recommended Monitor size and characteristics of moles, f/u with any changes Refills given for all meds for 1 year Routine breast self-exam encouraged monthly Seat belt use encouraged STI/STD prevention discussed Sunscreen recommended TSH obtained I have discussed with patient the risks, benefits, medications, treatment options and modalities. I have instructed the patient to call or schedule a follow-up appointment if any problems or failureto improve. 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 BP completed using cuff size: regular Eduar Jeff INSURANCE COORDINATOR documented in this encounter Plan of Treatment Pending Results Name Type Priority Associated Diagnoses Date/Ti me CONSULT [facility] MUSTANGER Referral Routine Chronic Low Ba ck Pain 03/14/2009 documented as of this encounter Procedures Procedure Name Priority Date/Time Associated Diagnosis Comme nts ORTHOPEDIC MUSTANGER Routine 03/14/2009 Chronic Low Back REFERRAL Pain CL AFF CBC WITH Routine 03/11/2009 9:53 AM Screening for Resul ts for this PLATELETS REAMING MACHINE OPERATOR Unspecified Disorder procedu re are in of Blood and the results Blood-Forming Organs section . HCL TSH W/FREE T4 Routine 03/11/2009 9:53 AM Screening for Res ults for this REFLEX REAMING MACHINE OPERATOR Thyroid Disorder procedure a re in the results section. HCL GLUCOSE Routine 03/11/2009 9:53 AM Screening for Results for this REAMING MACHINE OPERATOR Diabetes Mellitus procedure are in the results section. documented in this encounter Results GLUCOSE (03/11/2009 9:53 AM REAMING MACHINE OPERATOR) athologist Signature Glucose 86 60 - 99 [facility] mg/dL CLINIC LAB Specimen Anatomical Collection Method Collection Time Receive d Time (Source) Location / / Volume Laterality 03/11/2009 9:53 AM 9 9:54 REAMING MACHINE OPERATOR AM REAMING MACHINE OPERATOR Chela Servin PA-C LABORATORY Performing Organization Address City/State/ZIP Code Phon e Number [facility] [address] [place] [address] [facility] LAB TSH W/FREE T4 REFLEX (03/11/2009 9:53 AM REAMING MACHINE OPERATOR) athologist Signature TSH 2.48 0.4 - 5.0 [place] mU/L CLINIC LAB Specimen Anatomical Collection Method Collection Time Receive d Time (Source) Location / / Volume Laterality 03/11/2009 9:53 AM 9 9:54 REAMING MACHINE OPERATOR AM REAMING MACHINE OPERATOR Chela Servin PA-C LABORATORY Performing Organization Address City/State/ZIP Code Phon e Number [facility] [address] [place] [address] [facility] LAB CBC WITH PLATELETS (03/11/2009 9:53 AM REAMING MACHINE OPERATOR) P athologist Signature WBC 5.5 4.0 - 11.0 [place] 10e9/L [facility] LAB RBC Count 4.97 3.8 - 5.2 [place] 10e12/L [facility] Hemoglobin 14.9 11.7 - [facility] 15.7 g/dL [facility] Hematocrit 42.5 35.0 - [facility] 47.0 % [facility] MCV 86 78 - 100 [facility] LAB MCH 30.0 26.5 - [facility] 33.0 pg [facility] LAB MCHC 35.1 31.5 - [facility] 36.5 g/dL [facility] LAB RDW 14.3 10.0 - [facility] 15.0 % [facility] Platelet Count 183 150 - 450 [place] 10e9/L [facility] LAB Specimen Anatomical Collection Method Collection Time Receive d Time (Source) Location / / Volume Laterality 03/11/2009 9:53 AM 9 9:54 REAMING MACHINE OPERATOR AM REAMING MACHINE OPERATOR Chela Servin PA-C LABORATORY Performing Organization Address City/State/ZIP Code Phon e Number [facility] [address] [place] [address] [facility] documented in this encounter Visit Diagnoses Diagnosis Routine physical examination - Primary Routine general medical examination at a health care facility Irregular menstrual cycle Screening for unspecified disorder of bl ood and blood-forming organs Screening for thyroid disorder Screening for diabetes mellitus Routine general medical examination at a health care facility Chronic low back pain Lumbago documented in this encounter Care Teams Buyer Tobacco Head Relationship Specialty Start Date End Date Olivia Moreno MD PCP - General 09/19/03 08/04/[address] [address] documented as of this encounter
--- OUTSIDE RECORDS SUMMARY | 2022-01-19 15:23 | XMS_ITS | Encounter Summary ---
:1990 Author Organization [facility] Address [address] [place] [address] Care Team Providers Name Role Phone Olivia Moreno MD Primary Care Provider Encounter Details Date Type Department Care Team Description 04/16/2008 Therapy Visit NE[facility] WAUCONDALavonne Hodges, LEROY Lumbar Radiculopathy [address] [address] (Primary Dx) [place] [address] [address] [phone] [place] [address] Social History Tobacco Use Types Packs/Day Years Used Date Smoking Tobacco: Never Alcohol Use Standard Drinks/Week Comments No 0 (1 standard drink = 0.6 oz pure alcoho l) Sex Assigned at Date Recorded Female 05/29/2020 7:33 PM CDT documented as of this encounter Progress Notes Nikolay Lagos - 05/23/2008 2:00 PM CDT Discharge due to patient not returning for PT appointments. Lavonne Mcpherson - 04/16/2008 1:09 PM CST Please refer to the daily flowsheet for treatment today and total treatment time. Does this patient have Medicare or Medicaid as primary or secondary insurance? NO PUNCHER documented in this encounter Plan of Treatment Not on filedocumented as of this encounter Procedures Procedure Name Priority Date/Time Associated Diagnosis Comme nts ZZC MANUAL THER Routine 04/16/2008 1:10 PM TIP PUNCHER Lumbar Radiculo mercedes TECH,1+REGIONS,EA 15 MIN documented in this encounter Visit Diagnoses Diagnosis Lumbar radiculopathy - Primary Thoracic or lumbosacral neuritis or radi culitis, unspecified documented in this encounter Care Teams Bioinformatics Programmer Relationship Specialty Start Date End Date Olivia Moreno MD PCP - General 09/19/03 08/04/10 [place] [address] documented as of this encounter
--- OUTSIDE RECORDS SUMMARY | 2022-01-19 15:23 | XMS_ITS | Encounter Summary ---
:1990 Author Organization [facility] Address [address] [place] [address] Care Team Providers Name Role Phone Olivia Moreno MD Primary Care Provider Reason for Referral NE[facility] Physical Therapy - Closed Specialty Diagnoses / Procedures Referred By Contact Refer red To Contact Diagnoses Back pain Sciatica Chon Tinoco [facility] MD Froilan [address] [place], [place] [address] Referral ID Status Reason Start Date Expiration Date Visits Requ ested Visits Authorized [id number] Closed 03/14/2008 03/14/2011 12 12 SKINNER Reason for Visit Reason Comments Back Pain lower left back pain x ongoi ng since Dec 2006, pt is taking Alleve for the pain Encounter Details Date Type Department Care Team Description 03/14/[address] [facility] Chon Tinoco Back Pain; Roque Mcgovern MD Sciatica [address] [place] [address] [address] [place] [address] [facility] [place] N [address] (Wo rk) Social History Tobacco Use Types Packs/Day Years Used Date Smoking Tobacco: Never Alcohol Use Standard Drinks/Week Comments No 0 (1 standard drink = 0.6 oz pure alcoho l) Sex Assigned at Date Recorded Female 05/29/2020 7:33 PM CDT documented as of this encounter Last Filed Vital Signs Vital Sign Reading Time Taken Comments Blood Pressure 108/64 03/14/2008 11:30 AM CALF SKINNER Pulse 76 03/14/2008 11:30 AM CALF SKINNER Temperature 36.7 ??C (98.1 ??F) 03/14/2008 11:30 AM CALF SKINNER Respiratory Rate - - Oxygen Saturation 100% 03/14/2008 11:30 AM CALF SKINNER Inhaled Oxygen Concentration - - Weight 47.2 kg (104 lb) 03/14/2008 11:30 AM CALF SKINNER Height 171.5 cm (5' 7.5) 03/14/2008 11:30 AM CALF SKINNER Body Mass Index 16.05 03/14/2008 11:30 AM CALF SKINNER Body Mass Index Percentile 0.31 % 03/14/2008 11:[address] Growth Chart: CDC (Girls, 2-20 Years) documented in this encounter Progress Notes Chon Tinoco - 03/14/2008 11:53 AM CST Nataly Simon is a 17 year old female who presents for evaluation of: 1. low back pain x 14 months. originally hurt with improper lift. Hurt for 1 month, then improved. Now will occasional pain with bending or lifting. Does get radiating pain down thigh, past knee, not foot or toes. No weakness or tingling. occasionally has felt numbness in the thigh. family history of disc herniation in father and grandfather. Problems list, allergies, social and family history, and past medical history, are all reviewed and updated in [facility]. Current outpatient prescriptions prior to encounter: ORTHO TRI-CYCLEN LO 0.025 MG OR TABS 1 TABLET DAILY OBJECTIVE: BP 108/64 Pulse 76 Temp (Src) 98.1 ??F (36.7 ??C) (Oral) Ht 5' 7.5 (1.715 m) Wt 104 lb (47.174 kg) SpO2 100% Lumbosacral spine area reveals mild local tenderness in the left paraspinal musculature. No mass. Painful and reduced LS ROM noted. Straight leg raise is positive at 60 degrees on left. DTR's, motor strength and sensation normal, including heel and toe gait. Peripheral pulses are palpable. Hips and knees have full range of motion without pain. No abdominal tenderness, mass or organomegaly. Assessment/Plan: 724.5E Back Pain Comment: Plan: CONSULT NELL (PT & CHIRO) 724.3 Sciatica Comment: Plan: CONSULT NELL (PT & CHIRO) likely both a musculoskeletal and disc herniation related back pain. Explained natural history of disc herniation. Recommended conservative therapy initially, consisting of NSAIDs and/or acetaminophenfor pain relief, and enrollment in formal Physical Therapy program. If there is no improvement after4-6 weeks of Physical Therapy, or if she develops any alarm symptoms or progressive neurologic deficit, will proceed with MRI and referral to surgery. SKINNER documented in this encounter Nursing Notes 03/14/2008 11:30 AM CST >> SLY JEFF Wed Mar 14, 2008 11:39 AM Patient presents with: Back Pain - lower left back pain x ongoing since Dec 2006, pt is taking Alleve for the pain Nataly Simon presents for as above. Initial BP 108/64 Pulse 76 Temp (Src) 98.1 ??F (36.7 ??C) (Oral) Ht 5' 7.5 (1.715 m) Wt 104lb (47.174 kg) SpO2 100% Body mass index is 16.05 kg/(m^2).. BP completed using cuff size: regular Sly Jeff FOOD INSPECTOR documented in this encounter Plan of Treatment Not on filedocumented as of this encounter Visit Diagnoses Diagnosis Back pain Backache, unspecified Sciatica documented in this encounter Care Teams Head Waiter Relationship Specialty Start Date End Date Olivia Moreno MD PCP - General 09/19/03 08/04/[address] [address] documented as of this encounter
--- OUTSIDE RECORDS SUMMARY | 2022-01-19 15:23 | XMS_ITS | Encounter Summary ---
:1990 Author Organization [facility] Address [address] [place] [address]. [place] [address] Care Team Providers Name Role Phone Chela Servin PA-C Primary Care Provider Reason for Visit Reason Onset Date Comments Other 12/10/2010 sick/ dx with pneumo waqar at school Encounter Details Date Type Department Care Team Description 12/10/2010 Telephone [facility] Any Servin (sick/ dx with [facility] Chela Contreras PA-C pneumonia at school) [address] [facility] [id number] [place] [id number] Social History Tobacco Use Types Packs/Day Years Used Date Smoking Tobacco: Never Smokeless Tobacco: Never Alcohol Use Standard Drinks/Week Comments No 0 (1 standard drink = 0.6 oz pure alcoho l) Sex Assigned at Date Recorded Female 05/29/2020 7:33 PM CDT documented as of this encounter Miscellaneous Notes Telephone Encounter - Kaylynn Cooper - 12/10/2010 4:13 PM CDT Call from mom pt was DX with pneumonia at school on 11/20/10, she has had chest symptoms for over 1 month. Pt feels like she has barky cough denies SOB and wheezing. Did get treated with Zpak finished on 11/26/10 symptoms of cold are better but cough continues worse when lays down. Pt never received X-ray. Does have some slight chest pain ? If from cough. Pt goes have mitral valve prolapse as well. [place] in [place] at will be home Wednesday, appt made for Wednesday with Dr. Lombardo. Advised to see ED if develops fever, sob or chest pain. Mom states sister also at college there and has car to take here if needed. Kaylynn Cooper RN documented in this encounter Plan of Treatment Not on filedocumented as of this encounter Visit Diagnoses Not on filedocumented in this encounter Care Teams Front Desk Representative Relationship Specialty Start Date End Date Chela Servin PA-C PCP - General Family Practice 08/05/10 03/23/13 [address] [place] [address] documented as of this encounter
--- OUTSIDE RECORDS SUMMARY | 2022-01-19 15:23 | XMS_ITS | Encounter Summary ---
:1990 Author Organization [facility] Address [address] [place] [address] Care Team Providers Name Role Phone Olivia Moreno MD Primary Care Provider Reason for Visit Reason Onset Date Comments Medication Request 09/09/2009 Encounter Details Date Type Department Care Team Description 09/09/2009 Telephone [facility] Noah Moreno MD Medication Request [address] [phone] [place] [address] [phone] (Wo rk) Social History Tobacco Use Types Packs/Day Years Used Date Smoking Tobacco: Never Alcohol Use Standard Drinks/Week Comments No 0 (1 standard drink = 0.6 oz pure alcoho l) Sex Assigned at Date Recorded Female 05/29/2020 7:33 PM CDT documented as of this encounter Miscellaneous Notes Telephone Encounter - Chela Servin - 09/09/2009 9:21 AM CDT prescription approved, please let patient know this medication has been refilled. Telephone Encounter - Flavio Masters - 09/09/2009 8:58 AM CDT Patient requesting a change in BCP. Request a change to Av[facility]. Last Px was 03/11/09. Can you change? Flavio Masters RN Telephone Encounter - Flavio Masters - 09/09/2009 8:56 AM CDT Message copied by FLAVIO MASTERS on WedSep 09, 2009 8:56 AM ------ Message from: LEATHA MARK Created: [facility] Sep 07, 2009 9:45 AM Regarding: Rx change/Chela Contact: Nataly crawley her control changed to Nate. She was on ortho tri-cyclen years ago. Please sendto [employer] in [place]. Nataly can be reached at [phone]. DL 6-26@9:48am documented in this encounter Plan of Treatment Not on filedocumented as of this encounter Visit Diagnoses Diagnosis OCP (oral contraceptive pills) initiatio n - Primary General counseling for prescription of o ral contraceptives documented in this encounter Care Teams Hydropulper Relationship Specialty Start Date End Date Olivia Moreno MD PCP - General 09/19/03 08/04/[address] [address] documented as of this encounter
--- OUTSIDE RECORDS SUMMARY | 2022-01-19 15:23 | XMS_ITS | Encounter Summary ---
:1990 Author Organization [facility] Address [address] [place] [address] Care Team Providers Name Role Phone Olivia Moreno MD Primary Care Provider Reason for Referral - Closed Specialty Diagnoses / Procedures Referred By Contact Refer red To Contact Diagnoses Temporomandibular joint disorders, unspecified Mira Steel MD XXX NO INFO FOUND XX X XXX [facility] [place] [address] Referral ID Status Reason Start Date Expiration Date Visits Requ ested Visits Authorized [id number] Closed 12/10/2003 03/14/2011 1 1 Reason for Visit Reason Comments Pain left side jaw pain Encounter Details Date Type Department Care Team Description 12/10/2003 Office Visit [facility] Mira Steel M D TM JOINT DISORDER, [facility] [place] XXX NO INFO FOUND UNSPEC (Primary Dx) [address] [facility] [place] [address] [place] [address] Social History Tobacco Use Types Packs/Day Years Used Date Smoking Tobacco: Never Assessed Sex Assigned at Date Recorded Female 05/29/2020 7:33 PM CDT documented as of this encounter Last Filed Vital Signs Vital Sign Reading Time Taken Comments Blood Pressure 112/64 12/10/2003 1:40 PM CDT Pulse - - Temperature 35.9 ??C (96.7 ??F) 12/10/2003 1:40 PM CDT Respiratory Rate - - Oxygen Saturation - - Inhaled Oxygen Concentration - - Weight 40.8 kg (90 lb) 12/10/2003 1:40 PM CDT Height - - Body Mass Index - - documented in this encounter Progress Notes 12/10/2003 1:30 PM CDT SUBJECTIVE: mixer pigment gave her info on TMJ syndrome OBJECTIVE: L jaw pops ASSESSMENT/PLAN: Per encounter diagnoses and orders. see TMJ info documented in this encounter Nursing Notes 12/10/2003 1:30 PM CDT >> MARIAH VEE 12/10/03 1:41 pm Nataly Simon presents for left side jaw pain.Has had this pain for approx. 1 month, worse today. Hurts to open jaw wide. Initial BP 112/64 Temp (Src) 96.7 (Oral) Wt 90 lbs (40.8kg). BP completed using cuff size: regular. Mariah Vee RN documented in this encounter Plan of Treatment Not on filedocumented as of this encounter Visit Diagnoses Diagnosis Temporomandibular joint disorders, unspe cified - Primary documented in this encounter Care Teams Log Sawyer Relationship Specialty Start Date End Date Olivia Moreno MD PCP - General 09/19/03 08/04/[address] [address] documented as of this encounter
--- OUTSIDE RECORDS SUMMARY | 2022-01-19 15:23 | XMS_ITS | Encounter Summary ---
:1990 Author Organization [facility] Address [address] [place] [address] Care Team Providers Name Role Phone Chela Servin PA-C Primary Care Provider Reason for Visit Reason Onset Date Comments Refill Request 08/05/2010 mattie Encounter Details Date Type Department Care Team Description 08/05/2010 Refill M [facility] Olivia Moreno MD Refill Request (mattie) [address] [address] [place] [address] [phone] (Wo rk) Social History Tobacco Use Types Packs/Day Years Used Date Smoking Tobacco: Never Alcohol Use Standard Drinks/Week Comments No 0 (1 standard drink = 0.6 oz pure alcoho l) Sex Assigned at Date Recorded Female 05/29/2020 7:33 PM CDT documented as of this encounter Miscellaneous Notes Telephone Encounter - Kaylynn Herron - 08/05/2010 11:32 AM CDT Left message with pt to call back, pt needs appt prior to further refills, she was asked to schedulean appt 04-22-11. Kaylynn Herron RN documented in this encounter Plan of Treatment Not on filedocumented as of this encounter Visit Diagnoses Not on filedocumented in this encounter Care Teams Branch Administrator Relationship Specialty Start Date End Date Chela Servin PA-C PCP - General Family Practice 08/05/10 03/23/13 [address] [place] [address] documented as of this encounter
--- OUTSIDE RECORDS SUMMARY | 2022-01-19 15:23 | XMS_ITS | Encounter Summary ---
:1990 Author Organization [facility] Address [address] [place] [address] Care Team Providers Name Role Phone Olivia Moreno MD Primary Care Provider Reason for Visit Reason Comments Abnormal Bleeding Problem irregular periods Encounter Details Date Type Department Care Team Description [facility] [place] XXX NO INFO (Primary Dx) [address] [facility] [place], [place] [address] [place] [address] Social History Tobacco Use Types Packs/Day Years Used Date Smoking Tobacco: Never Alcohol Use Standard Drinks/Week Comments No 0 (1 standard drink = 0.6 oz pure alcoho l) Sex Assigned at Date Recorded Female 05/29/2020 7:33 PM CDT documented as of this encounter Last Filed Vital Signs Vital Sign Reading Time Taken Comments Blood Pressure 96/60 01/26/2005 2:15 PM END FINDER TWISTING DEPARTMENT Pulse - - Temperature 35.7 ??C (96.2 ??F) 01/26/2005 2:15 PM END FINDER TWISTING DEPARTMENT Respiratory Rate - - Oxygen Saturation - - Inhaled Oxygen Concentration - - Weight 44.7 kg (98 lb 8 oz) 01/26/2005 2:15 PM END FINDER TWISTING DEPARTMENT Height - - Body Mass Index - - documented in this encounter Progress Notes Mira Steel - 01/26/2005 2:39 PM CST SUBJECTIVE: Nataly's mom saw Dr. Cordova recently and discussed Nataly's cycles with her. Usual cause is anovulation. May be starting today. Not sexually active. Does use tampons. Will be seeing a Derm tomorrow, [facility], for her skin. OBJECTIVE: BP 96/60 Temp (Src) 96.2 (Tympanic) Wt 98 lbs 8.0 oz (44.7kg) LMP 01/14/2005 acne no pelvis exam today no distress ASSESSMENT/PLAN: 626.4 IRREGULAR MENSTRUATION (primary encounter diagnosis) Note: heavy, frequent cycles, anovulation? Plan: ORTHO TRI-CYCLEN LO 0.025 MG OR TABS consider 6 month trial of OCPs and then discontinue, see if your own cycles will regulate FINDER TWISTING DEPARTMENT documented in this encounter Nursing Notes 01/26/2005 2:15 PM CST >> SHIREEN AKINS 01/26/2005 2:20 pm Nataly Simon presents for irregular periods. LMP was 1.5 weeks ago and now spotting. had long period last month. Initial BP 96/60 Temp (Src) 96.2 (Tympanic) Wt 98 lbs 8.0 oz (44.7kg) LMP 01/14/2005 There is no height information to calculate BMI.. BP completed using cuff size: regular Shireen Akins MA documented in this encounter Plan of Treatment Not on filedocumented as of this encounter Visit Diagnoses Diagnosis Irregular menstrual cycle - Primary documented in this encounter Care Teams Drywall Stripper Helper Relationship Specialty Start Date End Date Olivia Moreno MD PCP - General 09/19/03 08/04/[address] [address] documented as of this encounter
--- OUTSIDE RECORDS SUMMARY | 2022-01-19 15:23 | XMS_ITS | Encounter Summary ---
:1990 Author Organization [facility] Address [address] [place] [address] Care Team Providers Name Role Phone Olivia Moreno MD Primary Care Provider Reason for Visit Reason Onset Date Comments Medication Request 07/04/2010 AVIANE 0.1-20 MG-MCG PO TABS Encounter Details Date Type Department Care Team Description 07/04/2010 Telephone [facility] Olivia Moreno MD Medication Request Clinic [facility] (AVIANE 0.1-20 MG-MCG [address] [facility] PO TABS) [address] [address] [place] [address] (Wo rk) Social History Tobacco Use Types Packs/Day Years Used Date Smoking Tobacco: Never Alcohol Use Standard Drinks/Week Comments No 0 (1 standard drink = 0.6 oz pure alcoho l) Sex Assigned at Date Recorded Female 05/29/2020 7:33 PM CDT documented as of this encounter Miscellaneous Notes Telephone Encounter - Kyara Rod - 07/04/2010 1:53 PM CDT Pt notified script filled for one month supply. Pt was notified that she will need to make an appt for future medication refills. Pt verbalized understanding. Kyara Rod RN. Telephone Encounter - Olivia Moreno MD - 07/04/2010 1:01 PM CDT Refill done for pt As requested Thanks Olivia Moreno MD Telephone Encounter - Kyara Rod - 07/04/2010 11:49 AM CDT Does not meet standard requirement for RN refill protocol. Last OV:03/11/2009 Last refill: AVIANE 0.1-20 MG-MCG PO TABS 3 Package prn 09/09/2009 Sig: ONE TABLET DAILY Class: Fax Pt states she will make an appt when she returns home in July. Ok to refill 1 month? [facility] in [place]. Please route back to me if script was approved so I can notify pt and schedule an appt for her. Thanks! Kyara Rod RN. Telephone Encounter - Dagmar Godfrey - 07/04/2010 11:30 AM CDT Patient requesting refill of: AVIANE 0.1-20 MG-MCG PO TABS but said she is using the generic form bythe name of Raul. Patient will schedule a appointment when she returns home from [facility] in july. She uses the [facility] pharmacy. Patient can be reached at [phone]. Last office visit:03/11/2009 Last refill:09/09/2009. Dagmar Godfrey Oil And Gas Drafter documented in this encounter Plan of Treatment Not on filedocumented as of this encounter Visit Diagnoses Diagnosis IRREGULAR MENSTRUATION - Primary Irregular menstrual cycle documented in this encounter Care Teams Asbestos Abatement Worker Relationship Specialty Start Date End Date Olivia Moreno MD PCP - General 09/19/03 08/04/[address] [address] documented as of this encounter
--- OUTSIDE RECORDS SUMMARY | 2022-01-19 15:23 | XMS_ITS | Encounter Summary ---
:1990 Author Organization [facility] Address [address] [place] [address] Care Team Providers Name Role Phone Olivia Moreno MD Primary Care Provider Reason for Visit Reason Comments Mantoux Results Reading mantoux negative Encounter Details Date Type Department Care Team Description 09/21/2003 Allied Health/Nurse [place] [facility] Man toux Results Reading Visit Clinic [place] (mantoux negative) [id number] [place] [address] Social History Tobacco Use Types Packs/Day Years Used Date Smoking Tobacco: Never Assessed Sex Assigned at Date Recorded Female 05/29/2020 7:33 PM CDT documented as of this encounter Plan of Treatment Not on filedocumented as of this encounter Visit Diagnoses Diagnosis Screening examination for pulmonary tube rculosis - Primary documented in this encounter Care Teams County Judge Relationship Specialty Start Date End Date Olivia Moreno MD PCP - General 09/19/03 08/04/[address] [address] documented as of this encounter
--- OUTSIDE RECORDS SUMMARY | 2022-01-19 15:23 | XMS_ITS | Encounter Summary ---
:1990 Author Organization [facility] Address [address] [place] [address]. [place] [address] Care Team Providers Name Role Phone Olivia Moreno MD Primary Care Provider Encounter Details Date Type Department Care Team Description 03/30/2008 Therapy Visit [facility] CARMEL Sapna, Lumbar Radiculopathy [address] [address], PT (Primary Dx) [place] [address] [address] [facility] [phone] [place] [address] Social History Tobacco Use Types Packs/Day Years Used Date Smoking Tobacco: Never Alcohol Use Standard Drinks/Week Comments No 0 (1 standard drink = 0.6 oz pure alcoho l) Sex Assigned at Date Recorded Female 05/29/2020 7:33 PM CDT documented as of this encounter Progress Notes Gerard Alejo - 03/30/2008 5:40 PM CST Please refer to the daily flowsheet for treatment today and total treatment time. Does this patient have Medicare or Medicaid as primary or secondary insurance? NO WARE CONTROLS ENGINEER documented in this encounter Plan of Treatment Not on filedocumented as of this encounter Procedures Procedure Name Priority Date/Time Associated Diagnosis Comme nts [facility] MANUAL THER Routine 03/30/2008 5:40 PM SOFTWARE CONTROLS ENGINEER Lumbar Radiculo mercedes TECH,1+REGIONS,EA 15 MIN ZZC THERAPEUTIC Routine 03/30/2008 5:40 PM SOFTWARE CONTROLS ENGINEER Lumbar Radiculo mercedes EXERCISES documented in this encounter Visit Diagnoses Diagnosis Lumbar radiculopathy - Primary Thoracic or lumbosacral neuritis or radi culitis, unspecified documented in this encounter Care Teams Greeting Card Maker Relationship Specialty Start Date End Date Olivia Moreno MD PCP - General 09/19/03 08/04/[address] [address] documented as of this encounter
--- OUTSIDE RECORDS SUMMARY | 2022-01-19 15:23 | XMS_ITS | Encounter Summary ---
:1990 Author Organization [facility] Address [address] [place] [address]. [place] [address] Care Team Providers Name Role Phone Olivia Moreno MD Primary Care Provider Encounter Details Date Type Department Care Team Description 04/20/2008 Therapy Visit [facility] for Lavonne Mcpherson PTA Lumbar Radiculopathy Athletic Medicine - [address] (Prima ry Dx) [facility] [place] [address] [facility] [phone], [place] (Work) [address] Social History Tobacco Use Types Packs/Day Years Used Date Smoking Tobacco: Never Alcohol Use Standard Drinks/Week Comments No 0 (1 standard drink = 0.6 oz pure alcoho l) Sex Assigned at Date Recorded Female 05/29/2020 7:33 PM CDT documented as of this encounter Progress Notes Lavonne Mcpherson - 04/20/2008 11:51 AM CST Please refer to the daily flowsheet for treatment today and total treatment time. Does this patient have Medicare or Medicaid as primary or secondary insurance? NO RETE PRODUCTS DISPATCHER documented in this encounter Plan of Treatment Not on filedocumented as of this encounter Procedures Procedure Name Priority Date/Time Associated Diagnosis Comme nts ZZC MANUAL THER Routine 04/20/2008 11:51 AM CONCRETE PRODUCTS DISPATCHER Lumbar Radicul opathy TECH,1+REGIONS,EA 15 MIN documented in this encounter Visit Diagnoses Diagnosis Lumbar radiculopathy - Primary Thoracic or lumbosacral neuritis or radi culitis, unspecified documented in this encounter Care Teams Electric Meter Tester Relationship Specialty Start Date End Date Olivia Moreno MD PCP - General 09/19/03 08/04/[address] [address] documented as of this encounter
--- OUTSIDE RECORDS SUMMARY | 2022-01-19 15:23 | XMS_ITS | Encounter Summary ---
:1990 Author Organization [facility] Address [address] [place] [address] Care Team Providers Name Role Phone Olivia Moreno MD Primary Care Provider Reason for Visit Reason Comments Imm/Inj mantoux Encounter Details Date Type Department Care Team Description 09/19/2003 Allied Health/Nurse [facility] Imm/Inj (mantoux) Visit [address] [address] Social History Tobacco Use Types Packs/Day Years Used Date Smoking Tobacco: Never Assessed Sex Assigned at Date Recorded Female 05/29/2020 7:33 PM CDT documented as of this encounter Nursing Notes 09/19/2003 4:00 PM CDT >> KAYLA GODFREY 09/19/2003 4:28 pm see imm flow sheet. Savita Godfrey LPN documented in this encounter Plan of Treatment Not on filedocumented as of this encounter Visit Diagnoses Diagnosis Screening examination for pulmonary tube rculosis - Primary documented in this encounter Care Teams Painter Supervisor Relationship Specialty Start Date End Date Olivia Moreno MD PCP - General 09/19/03 08/04/[address] [address] documented as of this encounter
--- OUTSIDE RECORDS SUMMARY | 2022-01-19 15:23 | XMS_ITS | Encounter Summary ---
:1990 Author Organization [facility] Address [address] [place] [address] Care Team Providers Name Role Phone Olivia Moreno MD Primary Care Provider Encounter Details Date Type Department Care Team Description 04/11/2008 Therapy Visit [facility] Lavonne Cochran, LEROY Lumbar Radiculopathy [address] [address] (Primary Dx) [place] [address] [address] [phone] [place] [address] Social History Tobacco Use Types Packs/Day Years Used Date Smoking Tobacco: Never Alcohol Use Standard Drinks/Week Comments No 0 (1 standard drink = 0.6 oz pure alcoho l) Sex Assigned at Date Recorded Female 05/29/2020 7:33 PM CDT documented as of this encounter Progress Notes Alex Stokes - 04/16/2008 1:16 PM CLOTH BLEACHING RANGE BACK TENDER Addended by: ALEX STOKES on: 04/16/2008 1:16:43 PM Modules accepted: Orders H BLEACHING RANGE BACK TENDER Lavonne Mcpherson - 04/11/2008 6:07 PM CST Please refer to the daily flowsheet for treatment today and total treatment time. Does this patient have Medicare or Medicaid as primary or secondary insurance? NO H BLEACHING RANGE BACK TENDER documented in this encounter Plan of Treatment Not on filedocumented as of this encounter Procedures Procedure Name Priority Date/Time Associated Diagnosis Comme nts ZC THERAPEUTIC Routine 04/16/2008 1:16 PM CLOTH BLEACHING RANGE BACK TENDER Lumbar Radiculo mercedes EXERCISES [facility] MANUAL THER Routine 04/11/2008 6:08 PM CLOTH BLEACHING RANGE BACK TENDER Lumbar Radiculo mercedes TECH,1+REGIONS,EA 15 MIN documented in this encounter Visit Diagnoses Diagnosis Lumbar radiculopathy - Primary Thoracic or lumbosacral neuritis or radi culitis, unspecified documented in this encounter Care Teams Senior Project Architect Relationship Specialty Start Date End Date Olivia Moreno MD PCP - General 09/19/03 08/04/[address] [address] documented as of this encounter
--- OUTSIDE RECORDS SUMMARY | 2022-01-19 15:23 | XMS_ITS | Encounter Summary ---
:1990 Author Organization [facility] Address [address] [place] [address]. [place] [address] Care Team Providers Name Role Phone Olivia Moreno MD Primary Care Provider Encounter Details Date Type Department Care Team Description 04/13/2008 Therapy Visit [place] for Lavonne Mcpherson PTA Lumbar Radiculopathy Athletic Medicine - [address] (Prima ry Dx) [facility] [place] [address] [facility] [phone] [place], [place] (Work) [address] Social History Tobacco Use Types Packs/Day Years Used Date Smoking Tobacco: Never Alcohol Use Standard Drinks/Week Comments No 0 (1 standard drink = 0.6 oz pure alcoho l) Sex Assigned at Date Recorded Female 05/29/2020 7:33 PM CDT documented as of this encounter Progress Notes Lavonne Mcpherson - 04/13/2008 11:53 AM CST Please refer to the daily flowsheet for treatment today and total treatment time. Does this patient have Medicare or Medicaid as primary or secondary insurance? NO TH SERVICE COORDINATOR documented in this encounter Plan of Treatment Not on filedocumented as of this encounter Procedures Procedure Name Priority Date/Time Associated Diagnosis Comme nts [facility] MANUAL THER Routine 04/13/2008 11:53 AM Lumbar Radiculopat hy TECH,1+REGIONS,EA 15 MIN HEALTH SERVICE COORDINATOR ZZC THERAPEUTIC Routine 04/13/2008 11:53 AM Lumbar Radiculopat hy EXERCISES HEALTH SERVICE COORDINATOR documented in this encounter Visit Diagnoses Diagnosis Lumbar radiculopathy - Primary Thoracic or lumbosacral neuritis or radi culitis, unspecified documented in this encounter Care Teams Farmworkers Relationship Specialty Start Date End Date Olivia Moreno MD PCP - General 09/19/03 08/04/[address] [address] documented as of this encounter
[2022-01-20 14:23] LABS: Strep B DNA Probe NEGATIVE (Negative)
[2022-01-20 15:37] LABS: Strep B Pen/Amox Allergy No
== END 2022-01-19 14:59 | disposition home or self-care (01) ==
PROVIDERS: Visit Provider Advanced Practice Midwife
DX: Z34.93 Encounter for supervision of normal pregnancy, unspecified, third trimester (principal); Z87.51 Personal history of pre-term labor; Z3A.33 33 weeks gestation of pregnancy
CPT/HCPCS: 87081; 87653

== ENCOUNTER 2022-02-16 12:59 | Outpatient (CLI) | payer BC, SELFPAY ==
--- NOTE | 2022-02-16 13:00 | CRLHL7_ITS ---
For Patients: As a result of the Century Cures Act, medical imaging exams and procedure reports are released immediately into your electronic medical record. You may view this report before your referring provider. If you have questions, please contact your health care provider. INDICATION: Growth follow up, measuring small for dates COMPARISON: 01/08/2022 TECHNIQUE: Real time colunga scale imaging of the fetus was performed. FINDINGS: Sonographic imaging demonstrates a single living intrauterine gestation. Fetus demonstrates a regular cardiac rate of 126 beats per minute. Fetus has a vertex position. The placenta lies posterior. Amniotic fluid volume appears normal and there is a single deepest vertical pocket: 6.6 cm. The estimated weight is 2678gm which lies at the 15th %. On the prior OB ultrasound exam dated 01/08/2022 the estimated weight was at the 24th%. BPD 64th percentile. HC 28th percentile. AC 13th percentile. FL 4th percentile. The HC/AC ratio measures 1.05 range (0.92-1.08). IMPRESSION: Sonographic gestational age 36 weeks 1 day and sonographic due date of 03/15/2022. Sonographic age 8 days behind the clinical age. Estimated weight 15th percentile. Abdominal circumference 13th percentile. Dictated by Jose Antonio Wheeler MD @ 02/17/2022 10:29:27 AM (Electronically Signed)
--- OUTSIDE RECORDS SUMMARY | 2022-02-16 13:01 | XMS_ITS | Clinical Summary ---
:1989 Author Organization [facility] [place] [address] Care Team Providers Name Role Phone Víctor [...] surgery (cleary resection) without post surgery complications [facility] Supervision of high-risk 08/20/2021 Overview: [facility] CONSULTATION ON 08/22/21 CONSULT VISIT ALERT: [...] REFERRING PHYSICIAN/PHONE/LAST UPDATE: Ronny Zapata CNM - [place] Primary MD approves scheduling of recomm ended ultrasounds/testing: Yes SPECIALISTS/CONSULTS: Include: Specialty MD Clinic Name Phone# [facility] [place] and ADDED TO PATIENT CARE TEAM Yes CARE COORDINATION: GENETICS: Declined PROCEDURES: PERTINENT LABS: Labs reviewed? Yes Normal? Yes PERTINENT MEDS: Preferred delivery location: MD PLAN OF CARE: Estimated Date of Delivery Comments Yes 03/07/2022 Based on Ultrasound Social History Tobacco Use Types Packs/Day Years [...] (4 lb ng 15 oz) Delivery Location: Hospital ([place]) Current OB Episode Summary Episode Dates Estimated Date of Pregravid Weight TWG (As of ) Delivery 08/22/2021 - Present 03/07/2022 (02/16/2022) Date GA Fund Present FHR Mvmt BP [...] in the Results review [facility] the [facility]. The Impression from the report is below. Thank you for the opportunity to partici eileen in the care of this marjorie patient. Taylor Aguilar MD ............. ....... 10/20/2021 2:38 PM Referred By: VÍCTOR ZAPATA [facility] Indications Code 20 weeks gestation of [...] as needed. Medical Decision Making: Low Level [address] Limited Diagnoses including two or more self-limited problems, and history of Limited Data including review of prior ultrasound and review of prior external notes Minimal risk of mortality to the fetus from amniocentesis which was considered and declined. Services Provided: Procedures Code DETAIL ANATOMY 79991.0 TRANSVAGINAL ULTRASOUND 94868.0 08/22/2021 - 11w6d - Rosanne Boucher, RN TELEHEALTH As the RN for this telehealth service, I attest that I introduced myself to the patient, provided my credentials, disclosed my location, and determined that, based on a review of the patients chart and/ or a discussion with members of the [facility] ent's treatment team, a virtual visit is [...] section of Exce ian chart and the [facility] Naviga tor for details. Comments under Consult [...] 2000 Depression screening for age 12+ 2001 HIV for age 15-65 2004 BMI (ht and wt on same day) for age 18+ 12/16/2007 Hepatitis C screening for age 18-79 12/16/2007 Tetanus booster 2009 Influenza for age 9-49 11/13/2021 Pap test for age 21-65 03/18/2023 03/18/2020, 03/18/2020 Results Not on filefrom Last 3 Months Insurance Payer Benefit Plan / Subscriber ID Effective Dates Phone Addre ss Type Group BLUE CROSS BLUE [employer]OSS OF [id number] 2017-Present [address] [place] [address] Care Teams Senior Care Manager Relationship Specialty Start Date End Date Víctor Zapata CNM Referring Provider Certified Nurse Centrifugal Chiller Technician 08/14/21 3 1999 [place] [address]
--- OUTSIDE RECORDS SUMMARY | 2022-02-16 13:02 | XMS_ITS | Encounter Summary ---
:1990 Author Organization [facility] Address [address] [place] [address] Care Team Providers Name Role Phone Jayson Lombardo MD Primary Care Provider Unavailable Reason for Visit Reason Comments Heart Problem irregular heart beat Encounter Details Date Type Department Care Team Description 06/04/2020 Office Visit [facility] Jayson Lombardo ons (Primary Clinic [place] MD Juwan Dx) [address] [place] [address] Social History Tobacco Use Types [...] No follow-ups on file. Jayson Lombardo MD [facility] [place] is a 29 year old who [...] as of this encounter Care Teams Rn Clinical Coordinator Relationship Specialty Start Date End Date Jayson Lombardo MD PCP - General Family Practice 03/24/13 documented as of this encounter
--- OUTSIDE RECORDS SUMMARY | 2022-02-16 13:02 | XMS_ITS | Encounter Summary ---
:1990 Author Organization [facility] Address [address] [place] [address] Care Team Providers Name Role Phone Jayson [...] with No / Unsure 04/04/2020 1:32 PM SLAB PULLER someone who was 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 documented as of this encounter Plan of Treatment Not on filedocumented as of this encounter Visit Diagnoses Not on filedocumented in this encounter Additional Health Concerns Assessment Noted Time PHQ-9 Depression Total Score: 9 09/12/2015 7:13 AM CDT documented as of this encounter Care Teams Appliance Fixer Relationship Specialty Start Date End Date Jayson Lombardo MD PCP - General Family Practice 03/24/13 Jayson Lombardo MD Assigned PCP 08/12/14 04/20/20 documented as of this encounter
--- OUTSIDE RECORDS SUMMARY | 2022-02-16 13:02 | XMS_ITS | Encounter Summary ---
:1990 Author Organization [place] Address [address] [facility] [place] [address] Care Team Providers Name Role Phone Jayson Lombardo MD Primary Care Provider Unavailable Jayson Lombardo MD Unavailable Unavailable Jayson Lombardo MD Unavailable Unavailable Reason for Visit Reason Comments Recheck Medication Encounter Details Date Type Department Care Team Description 01/25/2015 Office Visit [facility] Caridad Nunez Adjust ment disorder Clinic Roque Duque MD with anxious mood [address] [facility] [address] [address] (Primary Dx) [place], [place] [address] [phone] Social History Tobacco Use Types Packs/Day Years Used Date Smoking Tobacco: Never Smokeless Tobacco: Never Alcohol Use Standard Drinks/Week Comments Yes 0 (1 standard drink = 0.6 oz pure alcoho l) Sex Assigned at Date Recorded Female 05/29/2020 7:33 PM CDT documented as of this encounter Last Filed Vital Signs Vital Sign Reading Time Taken Comments Blood Pressure 92/60 01/25/2015 7:50 AM PROPOSAL REP Pulse 59 01/25/2015 7:50 AM PROPOSAL REP Temperature 36.4 ??C (97.6 ??F) 01/25/2015 7:50 AM PROPOSAL REP Respiratory Rate - - Oxygen Saturation 99% 01/25/2015 7:50 AM PROPOSAL REP Inhaled Oxygen Concentration - - Weight 48.1 kg (106 lb) 01/25/2015 7:50 AM PROPOSAL REP Height 170.2 cm (5' 7) 01/25/2015 7:50 AM PROPOSAL REP Body Mass Index 16.6 01/25/2015 7:50 AM PROPOSAL REP documented in this encounter Progress Notes Caridad [...] Score 2 - Total Score - 8 VAUGHN-7 SCORE 10/22/2014 12/12/2014 Total Score 10 - Total Score - 8 PHQ-9 Eritrean PHQ-9 Any Language GAD7 ?? Amount of [...] 6 months for re-eval Caridad Nunez MD [facility] OSAL REP documented in this encounter Nursing Notes Giulia Lazar, IDENTIFICATION CLERK - 01/25/2015 7:50 AM CST Chief Complaint [...] completed using cuff size: justin Lazar CMA OSAL REP documented in this encounter Plan of Treatment Not on filedocumented as of this encounter Visit Diagnoses Diagnosis Adjustment disorder with anxious mood - Primary Adjustment disorder with anxiety documented in this encounter Additional Health Concerns Assessment Noted Time PHQ-9 Depression Total Score: 4 01/26/2015 7:25 AM PROPOSAL REP documented as of this encounter Care Teams Spd Manager Relationship Specialty Start Date End Date Jayson Lombardo MD PCP - General Family Practice 03/24/13 Jayson Lombardo MD PCP - Assigned PCP 08/12/14 05/17/18 Jayson Lombardo MD Assigned PCP 08/12/14 04/20/20 documented as of this encounter
--- OUTSIDE RECORDS SUMMARY | 2022-02-16 13:02 | XMS_ITS | Encounter Summary ---
:1990 Author Organization [place] Address [address] [place] [address] Care Team Providers Name Role Phone Jayson Lombardo MD Primary Care Provider Unavailable Jayson Lombardo MD Unavailable Unavailable Jayson Lombardo MD Unavailable Unavailable Reason for Visit Reason Comments Recheck Medication Encounter Details Date Type Department Care Team Description 05/27/2016 Office Visit [facility] Jayson Lombardo t disorder Clinic Roque Echeverria MD with anxious mood [address] [facility] (Primary Dx) [place] [address] Social History Tobacco Use Types [...] 30 tablet; Refill: 0 Jayson Lombardo MD [facility] documented in this encounter Nursing Notes [...] documented as of this encounter Care Teams Truck Trailer Mechanic Relationship Specialty Start Date End Date Jayson Lombardo MD PCP - General Family Practice 03/24/13 Jayson Lombardo MD PCP - Assigned PCP 08/12/14 05/17/18 Jayson Lombardo MD Assigned PCP 08/12/14 04/20/20 documented as of this encounter
--- OUTSIDE RECORDS SUMMARY | 2022-02-16 13:02 | XMS_ITS | Encounter Summary ---
:1990 Author Organization [place] Address [address] [place] [address] Care Team Providers Name Role Phone Jayson Lombardo MD Primary Care Provider Unavailable Jayson Lombardo MD Unavailable Unavailable Jayson Lombardo MD Unavailable Unavailable Reason for Visit Reason Onset Date Comments Refill Request 02/17/2016 Encounter Details Date Type Department Care Team Description 02/17/2016 Telephone [facility] Jayson Lombardo Ra, MD Refill Request [place] [address] [place] [address] Social History Tobacco Use [...] discuss dosing PCP with provider at [facility]. Air Traffic Systems Technician spoke with Pharm and reported error in [...] Last Office Visit with [facility], P or [facility] prescribing provider: 09/11/15 Next 5 appointments (look out 90 days) Feb 25, 2016 7:00 AM PHYSICAL with Jayson Lombardo MD [facility] ([facility] [id number] [place] [phone] Last PHQ-9 score on record= PHQ-9 SCORE 09/11/2015 Total Score - Total Score 9 AST 26 03/24/2013 ALT 50 03/24/2013 CTOR TESTER documented in this encounter Plan of Treatment Not on filedocumented as of this encounter Visit Diagnoses Diagnosis Adjustment disorder with anxious mood - Primary Adjustment disorder with anxiety documented in this encounter Additional Health Concerns Assessment Noted Time PHQ-9 Depression Total Score: 9 09/12/2015 7:13 AM CDT documented as of this encounter Care Teams Helix Coil Winder Relationship Specialty Start Date End Date Jayson Lombardo MD PCP - General Family Practice 03/24/13 Jayson Lombardo MD PCP - Assigned PCP 08/12/14 05/17/18 Jayson Lombardo MD Assigned PCP 08/12/14 04/20/20 documented as of this encounter
--- OUTSIDE RECORDS SUMMARY | 2022-02-16 13:02 | XMS_ITS | Clinical Summary ---
:1990 Author Organization [place] Address [address] [place] [address] Care Team Providers Name Role Phone Unavailable [...] Addre ss Type Group BCBS [place] [id number] 2017-Vera [phone] [address] [address] Indemnity t 0 [place] [address]
--- OUTSIDE RECORDS SUMMARY | 2022-02-16 13:02 | XMS_ITS | Encounter Summary ---
:1990 Author Organization [place] Address [address] [place] [address] Care Team Providers Name Role Phone Jayson [...] with No / Unsure 02/14/2020 11:06 AM SUPERVISOR CRACK OFF someone who was 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 documented as of this encounter Plan of Treatment Not on filedocumented as of this encounter Visit Diagnoses Not on filedocumented in this encounter Additional Health Concerns Assessment Noted Time PHQ-9 Depression Total Score: 9 09/12/2015 7:13 AM CDT documented as of this encounter Care Teams Psychological Anthropologist Relationship Specialty Start Date End Date Jayson Lombardo MD PCP - General Family Practice 03/24/13 Jayson Lombardo MD Assigned PCP 08/12/14 04/20/20 documented as of this encounter
--- OUTSIDE RECORDS SUMMARY | 2022-02-16 13:02 | XMS_ITS | Encounter Summary ---
:1990 Author Organization [place] Address [address] [place] [address] Care Team Providers Name Role Phone Jayson Lombardo MD Primary Care Provider Unavailable Jayson Lombardo MD Unavailable Unavailable Jayson Lombardo MD Unavailable Unavailable Reason for Visit Reason Onset Date Comments Forms 02/26/2015 Annual Physical Veri ficiation Encounter Details Date Type Department Care Team Description 02/26/2015 Telephone [facility] Jayson Lombardo, Form s (Annual Physical Clinic [place] Verificiation) [address] [place] [address] Social History Tobacco Use Types [...] them. Orders were placed up at the front office representative for patient to bead picker LVM stating is it ready to be picked up, then orders were sent to abstraction and a copy to [facility] folder at the station. Mel Ruggiero Automatic Outsole Cutter FACTURING CONTROLS ENGINEER documented in this encounter Plan of Treatment Not on filedocumented as of this encounter Visit Diagnoses Not on filedocumented in this encounter Additional Health Concerns Assessment Noted Time PHQ-9 Depression Total Score: 4 01/26/2015 7:25 AM MANUFACTURING CONTROLS ENGINEER documented as of this encounter Care Teams Railroad Worker Relationship Specialty Start Date End Date Jayson Lombardo MD PCP - General Family Practice 03/24/13 Jayson Lombardo MD PCP - Assigned PCP 08/12/14 05/17/18 Jayson Lombardo MD Assigned PCP 08/12/14 04/20/20 documented as of this encounter
--- OUTSIDE RECORDS SUMMARY | 2022-02-16 13:02 | XMS_ITS | Encounter Summary ---
:1990 Author Organization [place] Address [address] [place] [address] Care Team Providers Name Role Phone Jayson Lombardo MD Primary Care Provider Unavailable Jayson Lombardo MD Unavailable Unavailable Reason for Visit [facility] Physical Therapy (Routine) - Closed Specialty Diagnoses / Procedures Referred By Contact Refer red To Contact Physical Therapist / Diagnoses L sciatica/ Irina Ibrahim @ [facility] in [place]/ [facility] Self, Referred, Gurvinder Cross, PT Physical Therapy Procedures SPINE INITIAL [address] [place], [place] [address] Phone: Fax: Referral ID Status Reason Start Date Expiration Date Visits Requ ested Visits Authorized [id number] Closed 01/31/2020 03/14/2020 40 40 Encounter Details Date Type Department Care Team Description 02/07/2020 Therapy Visit [facility] Gurvinder Gan, PT Chronic left-sided Rehabilitation Services [address] low back pain with [place] [address] left-sided sciatica [address] [place] [phone] Social History Tobacco Use Types Packs/Day Years Used Date Smoking Tobacco: Never Smokeless Tobacco: Never Alcohol Use Standard Drinks/Week Comments Yes 0 (1 standard drink = 0.6 oz pure alcoho l) Sex Assigned at Date Recorded Female 05/29/2020 7:33 PM CDT COVID-19 Exposure Response Date Recorded In the last month, have you been in contact with No / Unsure 02/07/2020 11:08 AM TUBE SKIVER someone who was 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 documented as of this encounter Plan of Treatment Not on filedocumented as of this encounter Procedures Procedure Name Priority Date/Time Associated Diagnosis Comme nts [place] NEUROMUSCULAR Routine 02/07/2020 11:48 AM Chronic left-side d REEDUCATION,1+ AREAS, EA TUBE SKIVER low back pain wi th 15 MIN left-sided sciatica WI THERAPEUTIC EXERCISES. Routine 02/07/2020 11:48 AM Chronic left-sided EA 15 MIN TUBE SKIVER low back pain with left-sided sciatica documented in this encounter Visit Diagnoses Diagnosis Chronic left-sided low back pain with le ft-sided sciatica documented in this encounter Additional Health Concerns Assessment Noted Time PHQ-9 Depression Total Score: 9 09/12/2015 7:13 AM CDT documented as of this encounter Care Teams Reception Agent Relationship Specialty Start Date End Date Jayson Lombardo MD PCP - General Family Practice 03/24/13 Jayson Lombardo MD Assigned PCP 08/12/14 04/20/20 documented as of this encounter
--- OUTSIDE RECORDS SUMMARY | 2022-02-16 13:02 | XMS_ITS | Encounter Summary ---
:1990 Author Organization [place] Address [address] [place] [address]. [place] [address] Care Team Providers Name Role Phone Jayson Lombardo MD Primary Care Provider Unavailable Jayson Lombardo MD Unavailable Unavailable Jayson Lombardo MD Unavailable Unavailable Reason for Visit Reason Comments Anxiety Encounter Details Date Type Department Care Team Description 10/20/2014 Office Visit [facility] Liu Ureña Acute reaction to Clinic [place] RENÉ Basilio stress (Primary Dx) [address] [phone] Social History Tobacco Use Types Packs/Day Years [...] list, Allergies, and Medical/Social/Surgical histories reviewed in [facility] andupdated as appropriate. ROS: Constitutional, HEENT, cardiovascular, [...] consider longer term plan. Liu Ureña PA-C [facility] Physical Exam documented in this encounter Nursing [...] Primary documented in this encounter Care Teams Chinese Language Professor Relationship Specialty Start Date End Date Jayson Lombardo MD PCP - General Family Practice 03/24/13 Jayson Lombardo MD PCP - Assigned PCP 08/12/14 05/17/18 Jayson Lombardo MD Assigned PCP 08/12/14 04/20/20 documented as of this encounter
--- OUTSIDE RECORDS SUMMARY | 2022-02-16 13:02 | XMS_ITS | Encounter Summary ---
:1990 Author Organization [place] Address [address] [place] [address] Care Team Providers Name Role Phone Jayson [...] with No / Unsure 02/07/2020 11:08 AM SALESPERSON FLOWERS someone who was 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 documented as of this encounter Plan of Treatment Not on filedocumented as of this encounter Visit Diagnoses Not on filedocumented in this encounter Additional Health Concerns Assessment Noted Time PHQ-9 Depression Total Score: 9 09/12/2015 7:13 AM CDT documented as of this encounter Care Teams Principal Ios Developer Relationship Specialty Start Date End Date Jayson Lombardo MD PCP - General Family Practice 03/24/13 Jayson Lombardo MD Assigned PCP 08/12/14 04/20/20 documented as of this encounter
--- OUTSIDE RECORDS SUMMARY | 2022-02-16 13:02 | XMS_ITS | Encounter Summary ---
:1990 Author Organization [place] Address [address] [place] [address] Care Team Providers Name Role Phone Jayson Lombardo MD Primary Care Provider Unavailable Jayson Lombardo MD Unavailable Unavailable Jayson Lombardo MD Unavailable Unavailable Reason for Visit Reason Onset Date Comments Forms 06/08/2016 [facility] rega ing Physical Examination Report Encounter Details Date Type Department Care Team Description 06/08/2016 Telephone [facility] Jayson Lombardo, Form s ([facility] Clinic Jaffrey [facility] [address] [facility] [place] [address] Social History Tobacco Use Types [...] Lombardo and signed. Mailed the form to wripl, sent a copy to cece and Aretha stone. Mel Ruggiero Lever Miller documented in this encounter Plan of Treatment Not on filedocumented as of this encounter Visit Diagnoses Not on filedocumented in this encounter Additional Health Concerns Assessment Noted Time PHQ-9 Depression Total Score: 9 09/12/2015 7:13 AM CDT documented as of this encounter Care Teams Watch Repair Person Relationship Specialty Start Date End Date Jayson Lombardo MD PCP - General Family Practice 03/24/13 Jayson Lombardo MD PCP - Assigned PCP 08/12/14 05/17/18 Jayson Lombardo MD Assigned PCP 08/12/14 04/20/20 documented as of this encounter
--- OUTSIDE RECORDS SUMMARY | 2022-02-16 13:02 | XMS_ITS | Encounter Summary ---
:1990 Author Organization [place] Address [address] [place] [address] Care Team Providers Name Role Phone Jayson Lombardo MD Primary Care Provider Unavailable Jayson Lombardo MD Unavailable Unavailable Jayson Lombardo MD Unavailable Unavailable Reason for Visit Reason Onset Date Comments Panel Management 11/30/2014 pap reminder Encounter Details Date Type Department Care Team Description [facility] [place] [facility] [address] [place] [address] Social History Tobacco Use Types Packs/Day Years Used Date Smoking Tobacco: Never Smokeless Tobacco: Never Alcohol Use Standard Drinks/Week Comments Yes 0 (1 standard drink = 0.6 oz pure alcoho l) Sex Assigned at Date Recorded Female 05/29/2020 7:33 PM CDT documented as of this encounter Miscellaneous Notes Telephone Encounter - Eduar Jeff, [facility] - 11/30/2014 1:14 PM CDT Panel Management Review Date of last visit with a [facility] provider: Grupo on 02/17/2015. Date of next visit with a [place] provider: None. Problem List Patient Active Problem [...] pap is needed. Type of outreach: Sent Pivotshare message. Questions for provider review: None Please indicate office visit, lab, MTM, or nurse appt if needed. Indicate fasting or not fasting. Eduar Jeff CMA Chart routed to pap needed . documented in this encounter Plan of Treatment Not on filedocumented as of this encounter Visit Diagnoses Not on filedocumented in this encounter Care Teams Heel Washer Stringing Machine Operator Relationship Specialty Start Date End Date Jayson Lombardo MD PCP - General Family Practice 03/24/13 Jayson Lombardo MD PCP - Assigned PCP 08/12/14 05/17/18 Jayson Lombardo MD Assigned PCP 08/12/14 04/20/20 documented as of this encounter
--- OUTSIDE RECORDS SUMMARY | 2022-02-16 13:02 | XMS_ITS | Encounter Summary ---
:1990 Author Organization [place] Address [address] [place] [address] Care Team Providers Name Role Phone Jayson Lombardo MD Primary Care Provider Unavailable Jayson Lombardo MD Unavailable Unavailable Jayson Lombardo MD Unavailable Unavailable Reason for Visit Reason Comments Physical Encounter Details Date Type Department Care Team Description 02/25/2016 Office Visit [facility] Jayson Lombardo Encounter for routine adult health examination without abnormal findings (Primary Dx); Clinic Roque Echeverria MD Adjustment disorder with anx ious mood [address] [place] [address] Social History Tobacco Use Types [...] Comments Blood Pressure 110/64 02/25/2016 7:09 AM RELATIONS SPECIALIST Pulse 74 02/25/2016 7:09 AM RELATIONS SPECIALIST Temperature 36.9 ??C (98.4 ??F) 02/25/2016 7:09 AM RELATIONS SPECIALIST Respiratory Rate - - Oxygen Saturation - - Inhaled Oxygen Concentration - - Weight 53 kg (116 lb 14.4 oz) 02/25/2016 7:09 AM RELATIONS SPECIALIST Height 171.5 cm (5' 7.5) 02/25/2016 7:09 AM RELATIONS SPECIALIST Body Mass Index 18.04 02/25/2016 7:09 AM RELATIONS SPECIALIST documented in this encounter Patient Instructions Patient [...] months for an exam and cleaning. ?? TIONS SPECIALIST documented in this encounter Progress Notes Jayson [...] 58 [phone] 73 CHOLHDLRATIO -- 2.2 2.4 MADL 82 -- -- Reviewed orders with patient. Reviewed health maintenance and updated orders accordingly - Yes History of abnormal Pap smear: NO - age 21-29 PAP every 3 years recommended All Histories reviewed and updated in [facility]. Past Medical History Diagnosis Date [...] list, Allergies, and Medical/Social/Surgical histories reviewed in [facility] andupdated as appropriate. OBJECTIVE: BP 110/64 [...] Prophylaxis Lung CA Screening Jayson Lombardo MD [facility] TIONS SPECIALIST documented in this encounter Nursing Notes Dary [...] kg). Dary Bautista CMA Health Maintenance- Reviewed. TIONS SPECIALIST documented in this encounter Plan of [...] documented as of this encounter Care Teams Green Building Architect Relationship Specialty Start Date End Date Jayson Lombardo MD PCP - General Family Practice 03/24/13 Jayson Lombardo MD PCP - Assigned PCP 08/12/14 05/17/18 Jayson Lombardo MD Assigned PCP 08/12/14 04/20/20 documented as of this encounter
--- OUTSIDE RECORDS SUMMARY | 2022-02-16 13:02 | XMS_ITS | Encounter Summary ---
:1990 Author Organization [place] Address [address] [place] [address] Care Team Providers Name Role Phone Jayson Lombardo MD Primary Care Provider Unavailable Jayson Lombardo MD Unavailable Unavailable Reason for Visit [facility] Physical Therapy (Routine) - Closed Specialty Diagnoses / Procedures Referred By Contact Refer red To Contact Physical Therapist / Diagnoses L sciatica/ Irina Ibrahim @ [facility] in [place]/ [facility] Self, Referred, Gurvinder Cross, PT Physical Therapy Procedures SPINE INITIAL [address] [address] [place], [place] [address] Phone: Fax: Referral ID Status Reason Start Date Expiration Date Visits Requ ested Visits Authorized [id number] Closed 01/31/2020 03/14/2020 40 40 Encounter Details Date Type Department Care Team Description 03/01/2020 Therapy Visit [facility] Gurvinder Gan, PT Chronic left-sided Rehabilitation Services [address] low back pain with [place] [address] left-sided sciatica [address] [place] [phone] Social History Tobacco Use Types Packs/Day Years Used Date Smoking Tobacco: Never Smokeless Tobacco: Never Alcohol Use Standard Drinks/Week Comments Yes 0 (1 standard drink = 0.6 oz pure alcoho l) Sex Assigned at Date Recorded Female 05/29/2020 7:33 PM CDT COVID-19 Exposure Response Date Recorded In the last month, have you been in contact with No / Unsure 03/01/2020 11:02 AM MERCHANDISE PLANNING MANAGER someone who was confirmed or suspected to [...] is being advanced to more complex exercises. SUPERVISOR MAPLE PRODUCTS/ATC plan: N/A Please refer to the daily flowsheet for treatment today, total treatment time and time spent performing 1:1 timed codes. HANDISE PLANNING MANAGER documented in this encounter Plan of Treatment Not on filedocumented as of this encounter Procedures Procedure Name Priority Date/Time Associated Diagnosis Comme nts [place] NEUROMUSCULAR Routine 03/01/2020 4:15 PM Chronic left-sided REEDUCATION,1+ AREAS, EA MERCHANDISE PLANNING MANAGER low back pain wi th 15 MIN left-sided sciatica [place] THERAPEUTIC EXERCISES. Routine 03/01/2020 4:15 PM Chronic l eft-sided EA 15 MIN MERCHANDISE PLANNING MANAGER low back pain with left-sided sciatica documented in this encounter Visit Diagnoses Diagnosis Chronic left-sided low back pain with le ft-sided sciatica documented in this encounter Additional Health Concerns Assessment Noted Time PHQ-9 Depression Total Score: 9 09/12/2015 7:13 AM CDT documented as of this encounter Care Teams Agricultural Research Technician Relationship Specialty Start Date End Date Jayson Lombardo MD PCP - General Family Practice 03/24/13 Jayson Lombardo MD Assigned PCP 08/12/14 04/20/20 documented as of this encounter
--- OUTSIDE RECORDS SUMMARY | 2022-02-16 13:02 | XMS_ITS | Encounter Summary ---
:1990 Author Organization [place] Address [address] [place] [address] Care Team Providers Name Role Phone Jayson Lombardo MD Primary Care Provider Unavailable Jayson Lombardo MD Unavailable Unavailable Reason for Visit [facility] Physical Therapy (Routine) - Closed Specialty Diagnoses / Procedures Referred By Contact Refer red To Contact Physical Therapist / Diagnoses L sciatica/ Irina Ibrahim @ [facility] in [place]/ [facility] Self, Referred, Gurvinder Cross, PT Physical Therapy Procedures SPINE INITIAL [address] [place], [place] [address] Phone: Fax: Referral ID Status Reason Start Date Expiration Date Visits Requ ested Visits Authorized [id number] Closed 01/31/2020 03/14/2020 40 40 Encounter Details Date Type Department Care Team Description 03/13/2020 Therapy Visit [facility] Gurvinder Gan, PT Chronic left-sided Rehabilitation Services [address] low back pain with [place] [address] left-sided sciatica [address] [place] [phone] Social History Tobacco Use Types Packs/Day Years Used Date Smoking Tobacco: Never Smokeless Tobacco: Never Alcohol Use Standard Drinks/Week Comments Yes 0 (1 standard drink = 0.6 oz pure alcoho l) Sex Assigned at Date Recorded Female 05/29/2020 7:33 PM CDT COVID-19 Exposure Response Date Recorded In the last month, have you been in contact with No / Unsure 03/13/2020 1:39 PM MARGIN TRIMMER someone who was 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 documented as of this encounter Progress Notes Gurvinder Bauman, PT - 03/13/2020 1:40 PM CST Subjective: The history is provided by the patient. No auditing clerk was used. Physical Exam Objective: System Physical [...] The following modalities have been added: ultrasound MIXER AND SCALER/ATC plan: N/A Please refer to the daily flowsheet for treatment today, total treatment time and time spent performing 1:1 timed codes. IN TRIMMER documented in this encounter Plan of Treatment Not on filedocumented as of this encounter Procedures Procedure Name Priority Date/Time Associated Diagnosis Comme nts [place] THERAPEUTIC Routine 03/13/2020 4:44 PM Chronic left-sided l ow EXERCISES. EA 15 MIN MARGIN TRIMMER back pain with left-sided sciatica AR ULTRASOUND THERAPY, Routine 03/13/2020 4:44 PM Chronic left -sided low EA 15 MIN MARGIN TRIMMER back pain with left-sided sciatica documented in this encounter Visit Diagnoses Diagnosis Chronic left-sided low back pain with le ft-sided sciatica documented in this encounter Additional Health Concerns Assessment Noted Time PHQ-9 Depression Total Score: 9 09/12/2015 7:13 AM CDT documented as of this encounter Care Teams Window And Door Installer Relationship Specialty Start Date End Date Jayson Lombardo MD PCP - General Family Practice 03/24/13 Jayson Lombardo MD Assigned PCP 08/12/14 04/20/20 documented as of this encounter
--- OUTSIDE RECORDS SUMMARY | 2022-02-16 13:02 | XMS_ITS | Encounter Summary ---
:1990 Author Organization [place] Address [address] [place] [address] Care Team Providers Name Role Phone Jayson Lombardo MD Primary Care Provider Unavailable Jayson Lombardo MD Unavailable Unavailable Jayson Lombardo MD Unavailable Unavailable Reason for Visit Reason Comments URI Encounter Details Date Type Department Care Team Description 04/19/2017 Office Visit [facility] Jayson Lombardo Viral URI (Primary Dx); Clinic Roque Echeverria MD Traveler's diarrhea [address] [place] [address] Social History Tobacco Use Types [...] Comments Blood Pressure 110/78 04/19/2017 9:42 AM TREE PULLER Pulse 68 04/19/2017 9:42 AM TREE PULLER Temperature 36.4 ??C (97.6 ??F) 04/19/2017 9:42 AM TREE PULLER Respiratory Rate 14 04/19/2017 9:42 AM TREE PULLER Oxygen Saturation 99% 04/19/2017 9:42 AM TREE PULLER Inhaled Oxygen Concentration - - Weight 49.3 kg (108 lb 11.2 oz) 04/19/2017 9:42 AM TREE PULLER Height 171.5 cm (5' 7.5) 04/19/2017 9:42 AM TREE PULLER Body Mass Index 16.77 04/19/2017 9:42 AM TREE PULLER documented in this encounter Progress Notes Jayson [...] stools per day. She recently traveled to [place]. Denies nausea, blood in stools. Problem list [...] behalf by Mer Avitia, a trained medical staff services coordinator. The creation of this document is based on the provider's statements to the medical staff services coordinator. Mer Avitia 9:55 AM April 19, 2017 [...] in this document, created by the medical staff services coordinator for me, accurately reflects the services I personally performed and the decisions made by me. I have reviewed and approved this document for accuracy prior to leaving the patient care area. April 19, 2017 10:09 AM Jayson Lombardo MD [facility] PULLER documented in this encounter Nursing Notes Stacey [...] Health Maintenance addressed: NONE N/a BULMARO Esteves PULLER documented in this encounter Plan of Treatment Not on filedocumented as of this encounter Visit Diagnoses Diagnosis Viral URI - Primary Acute upper respiratory infections of un specified site Traveler's diarrhea Infectious diarrhea documented in this encounter Additional Health Concerns Assessment Noted Time PHQ-9 Depression Total Score: 9 09/12/2015 7:13 AM CDT documented as of this encounter Care Teams Multi Site Leasing Consultant Relationship Specialty Start Date End Date Jayson Lombardo MD PCP - General Family Practice 03/24/13 Jayson Lombardo MD PCP - Assigned PCP 08/12/14 05/17/18 Jayson Lombardo MD Assigned PCP 08/12/14 04/20/20 documented as of this encounter
--- OUTSIDE RECORDS SUMMARY | 2022-02-16 13:02 | XMS_ITS | Encounter Summary ---
:1990 Author Organization [place] Address [address] [place] [address] Care Team Providers Name Role Phone Jayson Lombardo MD Primary Care Provider Unavailable Jaysno Lombardo MD Unavailable Unavailable Jayson Lombardo MD Unavailable Unavailable Reason for Visit Reason Comments Physical Blood Draw IS fasting Encounter Details Date Type Department Care Team Description 02/25/2015 Office Visit [facility] Jayson Lombardo Encounter for routine adult health examination without abnormal findings (Primary Dx); Clinic [place] MD [facility], left [address] [place] [address] Social History Tobacco Use Types [...] Comments Blood Pressure 94/64 02/25/2015 7:08 AM STORE TEAM MEMBER Pulse 68 02/25/2015 7:08 AM STORE TEAM MEMBER Temperature 36.9 ??C (98.4 ??F) 02/25/2015 7:08 AM STORE TEAM MEMBER Respiratory Rate - - Oxygen Saturation 99% 02/25/2015 7:08 AM STORE TEAM MEMBER Inhaled Oxygen Concentration - - Weight 47.2 kg (104 lb) 02/25/2015 7:08 AM STORE TEAM MEMBER Height 171.5 cm (5' 7.5) 02/25/2015 7:08 AM STORE TEAM MEMBER Body Mass Index 16.05 02/25/2015 7:08 AM STORE TEAM MEMBER documented in this encounter Patient Instructions Patient InstructionsEduar Jeff, APPLICATION INTEGRATOR - 02/25/2015 7:09 AM CST Images from [...] accuracy by faculty at the [facility]. Web site: [email or web address] E TEAM MEMBER documented in this encounter Progress Notes Jayson [...] Reyna and colleagues,with an educational srikanth from [employer].) 12/12/2014 03/09/2014 Q1: Little interest or pleasure [...] recommended All Histories reviewed and updated in [facility]. Past Medical History Diagnosis Date ??? [...] list, Allergies, and Medical/Social/Surgical histories reviewed in [facility] andupdated as appropriate. OBJECTIVE: Pulse 68 Temp(Src) [...] Preventive Guidelines Dietary Guidelines for Americans, 2010 [employer] Jayson Lombardo MD [facility] E TEAM MEMBER documented in this encounter Nursing Notes Eduar [...] completed using cuff size: justin Jeff CMA E TEAM MEMBER documented in this encounter Plan of Treatment Not on filedocumented as of this encounter Procedures Procedure Name Priority Date/Time Associated Diagnosis Comme nts LIPID REFLEX TO Routine 02/25/2015 7:36 AM Encounter for Resul ts for this DIRECT LDL PANEL STORE TEAM MEMBER routine adult health pro cedure are in examination without the resu lts abnormal findings section. GLUCOSE Routine 02/25/2015 7:36 AM Encounter for Results for this STORE TEAM MEMBER routine adult health procedu re are in examination without the resu lts abnormal findings section. documented in this encounter Results Glucose (02/25/2015 7:36 AM STORE TEAM MEMBER) P athologist Signature Glucose 78 70 - 99 [facility] mg/dL [facility] Specimen Anatomical Collection Method Collection Time Receive d Time (Source) Location / / Volume Laterality Blood specimen 02/25/2015 7:36 AM 015 7:41 (specimen) STORE TEAM MEMBER AM STORE TEAM MEMBER Jayson Lombardo MD LAB - BLOOD ORDERABLES Performing Organization Address City/[facility] Code Phon e Number [facility] [address] [place] [address] Lipid panel reflex to direct LDL (02/25/2015 7:36 AM STORE TEAM MEMBER) [facility] Method Time Signature Cholesterol 151 <200 [place] mg/dL [facility] Triglycerides 58 <150 [place] mg/dL [facility] HDL Cholesterol 69 >49 mg/dL [facility] LDL Cholesterol 70 <100 [place] Calculated mg/dL [facility] Comment: Desirable: <100 mg/dl Non HDL Cholesterol 82 <130 mg/dL [facility] Specimen Anatomical Collection Method Collection Time Receive d Time (Source) Location / / Volume Laterality Blood specimen 02/25/2015 7:36 AM 015 7:41 (specimen) STORE TEAM MEMBER AM STORE TEAM MEMBER Jayson Lombardo MD LAB - BLOOD ORDERABLES Performing Organization Address City/[facility] Code Phon e Number [facility] [address] [place] [address] documented in this encounter Visit Diagnoses Diagnosis Encounter for routine adult health exami nation without abnormal findings - Primary Stye, left documented in this encounter Additional Health Concerns Assessment Noted Time PHQ-9 Depression Total Score: 4 01/26/2015 7:25 AM STORE TEAM MEMBER documented as of this encounter Care Teams Waste Management Specialist Relationship Specialty Start Date End Date Jayson Lombardo MD PCP - General Family Practice 03/24/13 Jayson Lombardo MD PCP - Assigned PCP 08/12/14 05/17/18 Jayson Lombardo MD Assigned PCP 08/12/14 04/20/20 documented as of this encounter
--- OUTSIDE RECORDS SUMMARY | 2022-02-16 13:02 | XMS_ITS | Encounter Summary ---
:1990 Author Organization [place] Address [address] [place] [address] Care Team Providers Name Role Phone Jayson [...] with No / Unsure 03/13/2020 1:39 PM FIRE CHIEF DEPUTY someone who was 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 documented as of this encounter Plan of Treatment Not on filedocumented as of this encounter Visit Diagnoses Not on filedocumented in this encounter Additional Health Concerns Assessment Noted Time PHQ-9 Depression Total Score: 9 09/12/2015 7:13 AM CDT documented as of this encounter Care Teams Radiology Rn Relationship Specialty Start Date End Date Jayson Lombardo MD PCP - General Family Practice 03/24/13 Jayson Lombardo MD Assigned PCP 08/12/14 04/20/20 documented as of this encounter
--- OUTSIDE RECORDS SUMMARY | 2022-02-16 13:02 | XMS_ITS | Encounter Summary ---
:1990 Author Organization [place] Address [address] [place] [address] Care Team Providers Name Role Phone Jayson [...] with No / Unsure 03/01/2020 11:02 AM RAILWAY ENGINEER someone who was 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 documented as of this encounter Plan of Treatment Not on filedocumented as of this encounter Visit Diagnoses Not on filedocumented in this encounter Additional Health Concerns Assessment Noted Time PHQ-9 Depression Total Score: 9 09/12/2015 7:13 AM CDT documented as of this encounter Care Teams Commercial Sales Representative Relationship Specialty Start Date End Date Jayson Lombardo MD PCP - General Family Practice 03/24/13 Jayson Lombardo MD Assigned PCP 08/12/14 04/20/20 documented as of this encounter
--- OUTSIDE RECORDS SUMMARY | 2022-02-16 13:02 | XMS_ITS | Encounter Summary ---
:1990 Author Organization [place] Address [address] [facility] [place] [address] Care Team Providers Name Role Phone Jayson Lombardo MD Primary Care Provider Unavailable Reason for Visit Reason Comments Sick bleeding all the time, david watt cold Encounter Details Date Type Department Care Team Description 06/22/2014 Office Visit [facility] [place], Excess tong or frequent menstruation (Primary Dx); Clinic [place] Chela Contreras PA-C IRREGULAR MENSTRUATION; [id number] [place] [address] Migraine, unspecified, without mention o f intractable migraine without mention of status migrainosus; [place] [id number] [phone] Social History Tobacco Use Types Packs/Day Years [...] withinnormal limits. Has appointment set up with ticket sales supervisor in early july Plan: CBC with platelets [...] See Patient Instructions Chela Servin PA-C, [facility] documented in this encounter Nursing Notes [...] athologist Signature TSH 1.42 0.40 - 4.00 [facility] mU/L [facility] Specimen Anatomical Collection Method Collection Time Receive d Time (Source) Location / / Volume Laterality Blood specimen 06/22/2014 9:10 AM 015 9:11 (specimen) CDT AM CDT Chela Servin PA-C LAB - BLOOD ORDERABLES Performing Organization Address City/State/ZIP Code Phon e Number [facility] [address] [place] [address] CBC with platelets differential (06/22/2014 9:10 AM CDT) [facility] gist Method Time Signature WBC 6.5 4.0 - [place] 11.0 [facility] 10e9/L [facility] RBC Count 4.65 3.8 - 5.2 [place] 10e12/L [facility] Hemoglobin 14.2 11.7 - [place] 15.7 g/dL [facility] Hematocrit 42.3 35.0 - [place] 47.0 % [facility] MCV 91 78 - 100 [facility] MCH 30.5 26.5 - [place] 33.0 pg [facility] MCHC 33.6 31.5 - [place] 36.5 g/dL [facility] RDW 13.5 10.0 - [place] 15.0 % [facility] Platelet Count 178 150 - 450 [place] 10e9/L [facility] Diff Method Automated [facility] % Neutrophils 56.2 % [facility] % Lymphocytes 31.2 % [facility] % Monocytes 8.9 % [facility] % Eosinophils 3.2 % [facility] % Basophils 0.5 % [facility] Absolute 3.7 1.6 - 8.3 [place] Neutrophil 10e9/L [facility] Absolute 2.0 0.8 - 5.3 [place] Lymphocytes 10e9/L [facility] Absolute 0.6 0.0 - 1.3 [place] Monocytes 10e9/L [facility] Absolute 0.2 0.0 - 0.7 [place] Eosinophils 10e9/L [facility] Absolute 0.0 0.0 - 0.2 [place] Basophils 10e9/L [facility] Specimen Anatomical Collection Method Collection Time Receive d Time (Source) Location / / Volume Laterality Blood specimen 06/22/2014 9:10 AM 015 9:11 (specimen) CDT AM CDT Chela Servin PA-C LAB - BLOOD ORDERABLES Performing Organization Address City/State/ZIP Code Phon e Number [facility] [address] [place] [address] documented in this encounter Visit Diagnoses Diagnosis Excessive or frequent menstruation - Shakira na IRREGULAR MENSTRUATION Irregular menstrual cycle Migraine, unspecified, without mention o f intractable migraine without mention of status migrainosus Viral URI Acute upper respiratory infections of un specified site documented in this encounter Care Teams General Scrap Worker Relationship Specialty Start Date End Date Jayson Lombardo MD PCP - General Family Practice 03/24/13 documented as of this encounter
--- OUTSIDE RECORDS SUMMARY | 2022-02-16 13:02 | XMS_ITS | Encounter Summary ---
:1990 Author Organization [place] Address [address] [place] [address]. [place] [address] Care Team Providers Name Role Phone Jayson Lombardo MD Primary Care Provider Unavailable Jayson Lombardo MD Unavailable Unavailable Reason for Visit Rehab Therapy Physical Therapy (Routine) - Closed Specialty Diagnoses / Procedures Referred By Contact Refer red To Contact Physical Therapist / Diagnoses L sciatica/ Self, Irina @ [facility] in [place]/ [facility] Physical Therapy Procedures SPINE FOLLOW UP Sports & Physical Therapy - [facility] [address] [place] [address] Phone: Fax: Referral ID Status Reason Start Date Expiration Date Visits Requ ested Visits Authorized [id number] Closed 04/04/2020 03/14/2021 40 40 Encounter Details Date Type Department Care Team Description 04/17/[address] [facility] Gurvinder Bauman, PT Chronic left-sided Rehabilitation Services [address] low back pain with [place] [address] left-sided sciatica [address] [place] [address] Social History Tobacco Use Types Packs/Day Years Used Date Smoking Tobacco: Never Smokeless Tobacco: Never Alcohol Use Standard Drinks/Week Comments Yes 0 (1 standard drink = 0.6 oz pure alcoho l) Sex Assigned at Date Recorded Female 05/29/2020 7:33 PM CDT COVID-19 Exposure Response Date Recorded In the last month, have you been in contact with No / Unsure 04/17/2020 12:41 PM VOCATIONAL ED INSTRUCTOR someone who was confirmed or suspected to [...] and time spent performing 1:1 timed codes. TIONAL ED INSTRUCTOR documented in this encounter Plan of Treatment Not on filedocumented as of this encounter Procedures Procedure Name Priority Date/Time Associated Diagnosis Comme nts [place] THERAPEUTIC Routine 04/17/2020 3:00 PM Chronic left-sided l ow EXERCISES. EA 15 MIN VOCATIONAL ED INSTRUCTOR back pain with left-sided sciatica [place] ULTRASOUND THERAPY, Routine 04/17/2020 3:00 PM Chronic left -sided low EA 15 MIN VOCATIONAL ED INSTRUCTOR back pain with left-sided sciatica documented in this encounter Visit Diagnoses Diagnosis Chronic left-sided low back pain with le ft-sided sciatica documented in this encounter Additional Health Concerns Assessment Noted Time PHQ-9 Depression Total Score: 9 09/12/2015 7:13 AM CDT documented as of this encounter Care Teams Lab Aid Relationship Specialty Start Date End Date Jayson Lombardo MD PCP - General Family Practice 03/24/13 Jayson Lombardo MD Assigned PCP 08/12/14 04/20/20 documented as of this encounter
--- OUTSIDE RECORDS SUMMARY | 2022-02-16 13:02 | XMS_ITS | Encounter Summary ---
:1990 Author Organization [place] Address [address] [place] [address] Care Team Providers Name Role Phone Jayson [...] with No / Unsure 01/31/2020 10:59 AM POST FRAMER someone who was 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 documented as of this encounter Plan of Treatment Not on filedocumented as of this encounter Visit Diagnoses Not on filedocumented in this encounter Additional Health Concerns Assessment Noted Time PHQ-9 Depression Total Score: 9 09/12/2015 7:13 AM CDT documented as of this encounter Care Teams Recruiting Coordinator Relationship Specialty Start Date End Date Jayson Lombardo MD PCP - General Family Practice 03/24/13 Jayson Lombardo MD Assigned PCP 08/12/14 04/20/20 documented as of this encounter
--- OUTSIDE RECORDS SUMMARY | 2022-02-16 13:02 | XMS_ITS | Encounter Summary ---
:1990 Author Organization [place] Address [address] [place] [address] Care Team Providers Name Role Phone Jayson [...] with No / Unsure 04/17/2020 12:41 PM DOUBLE ENDING MACHINE OPERATOR someone who was 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 documented as of this encounter Plan of Treatment Not on filedocumented as of this encounter Visit Diagnoses Not on filedocumented in this encounter Additional Health Concerns Assessment Noted Time PHQ-9 Depression Total Score: 9 09/12/2015 7:13 AM CDT documented as of this encounter Care Teams Intern Architect Relationship Specialty Start Date End Date Jayson Lombardo MD PCP - General Family Practice 03/24/13 Jayson Lombardo MD Assigned PCP 08/12/14 04/20/20 documented as of this encounter
--- OUTSIDE RECORDS SUMMARY | 2022-02-16 13:02 | XMS_ITS | Encounter Summary ---
:1990 Author Organization [place] Address [address] [place] [address] Care Team Providers Name Role Phone Jayson Lombardo MD Primary Care Provider Unavailable Jayson Lombardo MD Unavailable Unavailable Jayson Lombardo MD Unavailable Unavailable Reason for Visit Reason Comments Recheck Medication Encounter Details Date Type Department Care Team Description 09/11/2015 Office Visit [facility] Jayson Lombardo t disorder Clinic Roque Echeverria MD with anxious mood [address] [facility] (Primary Dx) [place] [address] Social History Tobacco Use Types [...] couple of months. Previously had improvement on Caotxzb23 mg. No significant side effects. Has stressors [...] 1 month or if doing well send [employer] message. Recommend continue medications for minimum 3-6 months and then consider decreased back to 10 mg if stable with decreasing stressors. - escitalopram (LEXAPRO) 20 MG tablet; Take 1 tablet (20 mg) by mouth daily Dispense: 30 tablet; Refill: 1 Jayson Lombardo MD [facility] documented in this encounter Nursing Notes Dary [...] documented as of this encounter Care Teams Bus Driver Supervisor Relationship Specialty Start Date End Date Jayson Lombardo MD PCP - General Family Practice 03/24/13 Jayson Lombardo MD PCP - Assigned PCP 08/12/14 05/17/18 Jayson Lombardo MD Assigned PCP 08/12/14 04/20/20 documented as of this encounter
--- OUTSIDE RECORDS SUMMARY | 2022-02-16 13:02 | XMS_ITS | Encounter Summary ---
:1990 Author Organization [place] Address [address] [place] [id number] Care Team Providers Name Role Phone Jayson Lombardo MD Primary Care Provider Unavailable Jayson Lombardo MD Unavailable Unavailable Reason for Visit NELL Physical Therapy (Routine) - Closed Specialty Diagnoses / Procedures Referred By Contact Refer red To Contact Physical Therapist / Diagnoses L sciatica/ Irina Ibrahim @ [facility] in [place]/ [facility] Self, Referred, Gurvinder Cross, PT Physical Therapy Procedures SPINE INITIAL [address] [place], [place] [address] Phone: Fax: Referral ID Status Reason Start Date Expiration Date Visits Requ ested Visits Authorized [id number] Closed 01/31/2020 03/14/2020 40 40 Encounter Details Date Type Department Care Team Description 02/14/2020 Therapy [address] [facility] Gurvinder Gan, PT Chronic left-sided Rehabilitation Services [address] low back pain with [place] [address] left-sided sciatica [address] [place] [phone] Social History Tobacco Use Types Packs/Day Years Used Date Smoking Tobacco: Never Smokeless Tobacco: Never Alcohol Use Standard Drinks/Week Comments Yes 0 (1 standard drink = 0.6 oz pure alcoho l) Sex Assigned at Date Recorded Female 05/29/2020 7:33 PM CDT COVID-19 Exposure Response Date Recorded In the last month, have you been in contact with No / Unsure 02/14/2020 11:06 AM EDUCATIONAL AIDE someone who was confirmed or suspected to [...] is being advanced to more complex exercises. PRINCIPAL EMBEDDED SOFTWARE ENGINEER/ATC plan: N/A Please refer to the daily flowsheet for treatment today, total treatment time and time spent performing 1:1 timed codes. ATIONAL AIDE documented in this encounter Plan of Treatment Not on filedocumented as of this encounter Procedures Procedure Name Priority Date/Time Associated Diagnosis Comme nts NE NEUROMUSCULAR Routine 02/14/2020 2:01 PM Chronic left-sided REEDUCATION,1+ AREAS, EA EDUCATIONAL AIDE low back pain wi th 15 MIN left-sided sciatica NE THERAPEUTIC EXERCISES. Routine 02/14/2020 2:01 PM Chronic l eft-sided EA 15 MIN EDUCATIONAL AIDE low back pain with left-sided sciatica documented in this encounter Visit Diagnoses Diagnosis Chronic left-sided low back pain with le ft-sided sciatica documented in this encounter Additional Health Concerns Assessment Noted Time PHQ-9 Depression Total Score: 9 09/12/2015 7:13 AM CDT documented as of this encounter Care Teams Sales Stock Associate Relationship Specialty Start Date End Date Jayson Lombardo MD PCP - General Family Practice 03/24/13 Jayson Lombardo MD Assigned PCP 08/12/14 04/20/20 documented as of this encounter
--- OUTSIDE RECORDS SUMMARY | 2022-02-16 13:02 | XMS_ITS | Encounter Summary ---
:1990 Author Organization [place] Address [address] [place] [address]. [place] [address] Care Team Providers Name Role Phone Jayson Lombardo MD Primary Care Provider Unavailable Jayson Lombardo MD Unavailable Unavailable Jayson Lombardo MD Unavailable Unavailable Reason for Referral Consultation - Closed Specialty Diagnoses / Procedures Referred By Contact Refer red To Contact Diagnoses Hypothalamic hypogonadism (H) Irregular menses Jayson Lombardo MD [facility] [id number] [place] [id number] Referral ID Status Reason Start Date Expiration Date Visits Requ ested Visits Authorized [id number] Closed 12/12/2014 12/12/2015 1 1 Reason for Visit Reason Comments Refill Request Encounter Details Date Type Department Care Team Description 12/12/2014 Office Visit [facility] Jayson Lombardo Adjustmen t disorder with anxious mood (Primary Dx); Clinic Roque Echeverria MD Underweight; [address] [facility] Hypothalamic hypogonadism (H ); [place], [place] Migraine with aura and without status migrainosus, not intractable; [address] Irregular menses; [phone] Acute reaction to stress Social History Tobacco [...] unlikely having ovulatory cycles. Has seen her [facility]AT[employer] PICKER for this issue and they changed her [...] 1 2. Underweight Discussed calorie supplement, consider laundry or dry cleaners counter clerk. 3. Hypothalamic hypogonadism With irregular cycles I [...] 20 tablet; Refill: 0 Jayson Lombardo MD [employer] documented in this encounter Nursing Notes Eduar [...] documented as of this encounter Care Teams Tour Consultant Relationship Specialty Start Date End Date Jayson Lombardo MD PCP - General Family Practice 03/24/13 Jayson Lombardo MD PCP - Assigned PCP 08/12/14 05/17/18 Jayson Lombardo MD Assigned PCP 08/12/14 04/20/20 documented as of this encounter
--- OUTSIDE RECORDS SUMMARY | 2022-02-16 13:02 | XMS_ITS | Encounter Summary ---
:1990 Author Organization [place] Address [address] [place] [address]. [place] [address] Care Team Providers Name Role Phone Jayson Lombardo MD Primary Care Provider Unavailable Jayson Lombardo MD Unavailable Unavailable Jayson Lombardo MD Unavailable Unavailable Reason for Visit Reason Comments Diarrhea Encounter Details Date Type Department Care Team Description 04/27/2015 Office Visit [facility] Mariyln Luna's diarrhea Clinic [place] FREDI [place] (Primary Dx) [facility] [address] [facility] [address] [place] [address] SUITE [facility] [phone] [place], [place] (Work) [address] [phone] Social History Tobacco Use Types Packs/Day Years [...] Comments Blood Pressure 92/64 04/27/2015 10:50 AM FASHION STYLING INTERN Pulse 56 04/27/2015 10:50 AM FASHION STYLING INTERN Temperature 36.5 ??C (97.7 ??F) 04/27/2015 10:50 AM FASHION STYLING INTERN Respiratory Rate 12 04/27/2015 10:50 AM FASHION STYLING INTERN Oxygen Saturation 98% 04/27/2015 10:50 AM FASHION STYLING INTERN Inhaled Oxygen Concentration - - Weight 49 kg (108 lb) 04/27/2015 10:50 AM FASHION STYLING INTERN Height 170.8 cm (5' 7.25) 04/27/2015 10:50 AM FASHION STYLING INTERN Body Mass Index 16.79 04/27/2015 10:50 AM FASHION STYLING INTERN documented in this encounter Patient Instructions Patient InstructionsMarilyn Luna PA-C - 04/27/2015 11:01 AM FASHION STYLING INTERN Images from the original note were not [...] severe liver damage.) 3. Do not give [id number] anti-diarrheal medicines, unless advised by??the doctor. 4. [...] higher, not better with fever medication ?? [id number] [employer]. [address] [place] [address]. All rights reserved. This information is not intended as a substitute for professional medical care. Always follow your healthcare professional's instructions. ION STYLING INTERN documented in this encounter Progress Notes Marilyn [...] of complaint: 5 days. Patient traveled to [facility] and upon return has had diarrhea. Description: Consistency of stool: watery, runny and very soft Blood in stool: no Number of loose stools past 24 hours: 4-5 daily Fever: no Nausea/vomitting: no Abdominal pain: no Weight loss: no Recent antibiotics: no Recent travel: YES- [facility] Any contacts ill: no Therapies tried [...] Medication list, Allergies, Medical/Social/Surg hx reviewed in [facility], updated as appropriate. OBJECTIVE: BP 92/64 mmHg [...] not improving as anticipated. Marilyn Luna PA-C [facility] ION STYLING INTERN documented in this encounter Nursing Notes Leighann [...] using cuff size: regular Leighann Underwood CMA ION STYLING INTERN documented in this encounter Plan of Treatment Not on filedocumented as of this encounter Visit Diagnoses Diagnosis Traveler's diarrhea - Primary Infectious diarrhea documented in this encounter Additional Health Concerns Assessment Noted Time PHQ-9 Depression Total Score: 4 01/26/2015 7:25 AM FASHION STYLING INTERN documented as of this encounter Care Teams Solar Sales Manager Relationship Specialty Start Date End Date Jayson Lombardo MD PCP - General Family Practice 03/24/13 Jayson Lombardo MD PCP - Assigned PCP 08/12/14 05/17/18 Jayson Lombardo MD Assigned PCP 08/12/14 04/20/20 documented as of this encounter
--- OUTSIDE RECORDS SUMMARY | 2022-02-16 13:02 | XMS_ITS | Encounter Summary ---
:1990 Author Organization [place] Address [address] [place] [address] Care Team Providers Name Role Phone Jayson [...] documented as of this encounter Care Teams Shared Services Representative Relationship Specialty Start Date End Date Jayson Lombardo MD PCP - General Family Practice 03/24/13 documented as of this encounter
--- OUTSIDE RECORDS SUMMARY | 2022-02-16 13:02 | XMS_ITS | Encounter Summary ---
:1990 Author Organization [facility] Address [address] [place] [address]. [place] [address] Care Team Providers Name Role Phone Jayson Lombardo MD Primary Care Provider Unavailable Jayson Lombardo MD Unavailable Unavailable Reason for Visit Rehab Therapy Physical Therapy (Routine) - Closed Specialty Diagnoses / Procedures Referred By Contact Refer red To Contact Physical Therapist / Diagnoses L sciatica/ Self, Irina @ [facility] in [place]/ [facility] Physical Therapy Procedures SPINE FOLLOW UP Sports & Physical Therapy - [facility] [address] [place] [phone] Phone: Fax: Referral ID Status Reason Start Date Expiration Date Visits Requ ested Visits Authorized [id number] Closed 04/04/2020 03/14/2021 40 40 Encounter Details Date Type Department Care Team Description 04/04/2020 Therapy Visit [facility] Gurvinder Bauman, PT Chronic left-sided Rehabilitation Services [address] low back pain with [place] [address] left-sided sciatica [address] [place] [phone] Social History Tobacco Use Types Packs/Day Years Used Date Smoking Tobacco: Never Smokeless Tobacco: Never Alcohol Use Standard Drinks/Week Comments Yes 0 (1 standard drink = 0.6 oz pure alcoho l) Sex Assigned at Date Recorded Female 05/29/2020 7:33 PM CDT COVID-19 Exposure Response Date Recorded In the last month, have you been in contact with No / Unsure 04/04/2020 1:32 PM MAIL MESSENGER someone who was confirmed or suspected to [...] is being advanced to more complex exercises. RESPIRATORY EQUIPMENT ASSISTANT/ATC plan: N/A Please refer to the daily flowsheet for treatment today, total treatment time and time spent performing 1:1 timed codes. MESSENGER documented in this encounter Plan of Treatment Not on filedocumented as of this encounter Procedures Procedure Name Priority Date/Time Associated Diagnosis Comme nts MT THERAPEUTIC Routine 04/04/2020 2:30 PM Chronic left-sided l ow EXERCISES. EA 15 MIN MAIL MESSENGER back pain with left-sided sciatica MT ULTRASOUND THERAPY, Routine 04/04/2020 2:30 PM Chronic left -sided low EA 15 MIN MAIL MESSENGER back pain with left-sided sciatica documented in this encounter Visit Diagnoses Diagnosis Chronic left-sided low back pain with le ft-sided sciatica documented in this encounter Additional Health Concerns Assessment Noted Time PHQ-9 Depression Total Score: 9 09/12/2015 7:13 AM CDT documented as of this encounter Care Teams Manager Club Relationship Specialty Start Date End Date Jayson Lombardo MD PCP - General Family Practice 03/24/13 Jayson Lombardo MD Assigned PCP 08/12/14 04/20/20 documented as of this encounter
--- OUTSIDE RECORDS SUMMARY | 2022-02-16 13:02 | XMS_ITS | Encounter Summary ---
:1990 Author Organization [place] Address [address] [place] [address] Care Team Providers Name Role Phone Jayson Lombardo MD Primary Care Provider Unavailable Jayson Lombardo MD Unavailable Unavailable Reason for Visit NELL Physical Therapy (Routine) - Closed Specialty Diagnoses / Procedures Referred By Contact Refer red To Contact Physical Therapist / Diagnoses L sciatica/ Irina Ibrahim @ [facility] in [place]/ [facility] Self, Referred, Gurvinder Cross, PT Physical Therapy Procedures SPINE INITIAL [address] [place], [place] [address] Phone: Fax: Referral ID Status Reason Start Date Expiration Date Visits Requ ested Visits Authorized [id number] Closed 01/31/2020 03/14/2020 40 40 Encounter Details Date Type Department Care Team Description 01/31/2020 Therapy Visit [facility] Gurvinder Gan, PT Chronic left-sided Rehabilitation Services [address] low back pain with [place] [address] left-sided sciatica [address] [place] [phone] Social History Tobacco Use Types Packs/Day Years Used Date Smoking Tobacco: Never Smokeless Tobacco: Never Alcohol Use Standard Drinks/Week Comments Yes 0 (1 standard drink = 0.6 oz pure alcoho l) Sex Assigned at Date Recorded Female 05/29/2020 7:33 PM CDT COVID-19 Exposure Response Date Recorded In the last month, have you been in contact with No / Unsure 01/31/2020 10:59 AM MORTGAGE CLOSING CLERK someone who was 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 documented as of this encounter Progress Notes MitulGurvinder, PT - 01/31/2020 11:10 AM CST [facility] Initial Evaluation Subjective: Onset of left lumbar pain radiating into left lower extremity. Pt has a son who was born in March 2019 and is doing a lot of lifting and carrying which aggravates the back. Previous treatment has consisted of chiropractic adjustments and over the count anti-inflammatory medication. The history is provided by the patient. No sign language instructor was used. Therapist Generated HPI Evaluation Type [...] Right: Minimal loss Rotation: Left: Right: Side Chemult: Left: Right: Strength: weak lower abdominals and [...] Sheet for this information) Short term and penitentiary goals: (See Goal Flow Sheet for this [...] and time spent performing 1:1 timed codes. GAGE CLOSING CLERK Lavonne Mcpherson PTA - 01/31/2020 11:10 AM CST [facility] Initial Evaluation Subjective: Patient Health History Pertinent medical history includes: migraines/headaches. Surgeries include: Other (Lung wedge resection (left,zoll)). 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 Objective: System Physical Exam General ROS Assessment/Plan: GAGE CLOSING CLERK documented in this encounter Plan of Treatment Not on filedocumented as of this encounter Procedures Procedure Name Priority Date/Time Associated Diagnosis Comme nts AK THERAPEUTIC Routine 01/31/2020 12:17 PM Chronic left-sided low EXERCISES. EA 15 MIN MORTGAGE CLOSING CLERK back pain with left-sided sciatica documented in this encounter Visit Diagnoses Diagnosis Chronic left-sided low back pain with le ft-sided sciatica documented in this encounter Additional Health Concerns Assessment Noted Time PHQ-9 Depression Total Score: 9 09/12/2015 7:13 AM CDT documented as of this encounter Care Teams Market Development Analyst Relationship Specialty Start Date End Date Jayson Lombardo MD PCP - General Family Practice 03/24/13 Jayson Lombardo MD Assigned PCP 08/12/14 04/20/20 documented as of this encounter
--- OUTSIDE RECORDS SUMMARY | 2022-02-16 13:03 | XMS_ITS | Encounter Summary ---
:1990 Author Organization [place] Address [address] [place] [address] Care Team Providers Name Role Phone Jayson Lombardo MD Primary Care Provider Unavailable Reason for Visit Reason Comments Physical Encounter Details Date Type Department Care Team Description 03/09/2014 Office Visit [facility] Jayson Lombardo Routine g eneral medical examination at a health care facility (Primary Dx); Clinic Roque Echeverria MD Abnormal uterine bleeding; [address] [facility] CARDIOVASCULAR SCREENING; LD L GOAL LESS THAN 160 [place] [phone] Social History Tobacco Use Types [...] Comments Blood Pressure 104/62 03/09/2014 8:55 AM SEXUAL ASSAULT COUNSELLOR Pulse 71 03/09/2014 8:55 AM SEXUAL ASSAULT COUNSELLOR Temperature 36.6 ??C (97.9 ??F) 03/09/2014 8:55 AM SEXUAL ASSAULT COUNSELLOR Respiratory Rate - - Oxygen Saturation - - Inhaled Oxygen Concentration - - Weight 48.9 kg (107 lb 14.4 oz) 03/09/2014 8:55 AM SEXUAL ASSAULT COUNSELLOR Height 170.2 cm (5' 7) 03/09/2014 8:55 AM SEXUAL ASSAULT COUNSELLOR Body Mass Index 16.9 03/09/2014 8:55 AM SEXUAL ASSAULT COUNSELLOR documented in this encounter Patient Instructions Patient [...] six months for an exam and cleaning. [place] ASSAULT COUNSELLOR documented in this encounter Progress Notes Jayson [...] today All Histories reviewed and updated in [facility]. Past Medical History Diagnosis Date ??? [...] list, Allergies, and Medical/Social/Surgical histories reviewed in [facility] andupdated as appropriate. OBJECTIVE: BP 104/62 [...] and would like to do this with GROWTH MEDIA MIXER MUSHROOM provider as she prefers female provider for [...] Preventive Guidelines Dietary Guidelines for Americans, 2010 [employer] Jayson Lombardo MD [facility] [place] ASSAULT COUNSELLOR documented in this encounter Nursing Notes Dary [...] size: regular right arm. Dary Stokes CMA [place] ASSAULT COUNSELLOR documented in this encounter Plan of Treatment Not on filedocumented as of this encounter Procedures Procedure Name Priority Date/Time Associated Diagnosis Comme nts LIPID REFLEX TO Routine 03/09/2014 9:16 AM Routine General Res ults for this DIRECT LDL PANEL SEXUAL ASSAULT COUNSELLOR Medical Examination proc edure are in [facility] the results Facility section. CARDIOVASCULAR SCREENING; LDL GOAL LESS THAN 160 GLUCOSE Routine 03/09/2014 9:16 AM Routine General Result s for this SEXUAL ASSAULT COUNSELLOR Medical Examination procedur e are in [facility] the results Facility section. documented in this encounter Results Glucose (03/09/2014 9:16 AM SEXUAL ASSAULT COUNSELLOR) athologist Signature Glucose 84 70 - 99 [facility] mg/dL LAB Comment: Effective 10/11/2013, the reference range for this assay has changed to reflect new instrumentation/methodology. Specimen Anatomical Collection Method Collection Time Receive d Time (Source) Location / / Volume Laterality Blood specimen 03/09/2014 9:16 AM 014 9:21 (specimen) SEXUAL ASSAULT COUNSELLOR AM SEXUAL ASSAULT COUNSELLOR Jayson Lombardo MD LAB - BLOOD ORDERABLES Performing Organization Address [facility] Code Phon e Number [address] [address] [facility] LAB Lipid panel reflex to direct LDL (03/09/2014 9:16 AM SEXUAL ASSAULT COUNSELLOR) athologist Signature Cholesterol 161 <200 mg/dL [facility] LAB Comment: LDL Cholesterol is the primary guide to therapy. The NCEP recommends further evaluation of: patients with cholesterol greater than 200 mg/dL if additional risk facto rs are present, cholesterol greater than 240 mg/dL, triglycerides greater than 1 50 mg/dL, or HDL less than 40 mg/dL. Triglycerides 69 0 - 150 mg/dL [facility] HDL Cholesterol 73 >50 mg/dL [facility] LAB LDL Cholesterol Calculated 74 0 - 129 mg/dL [facility] LAB Comment: LDL Cholesterol is the primary guide to therapy: LDL-cholesterol goal in high risk patients is <100 mg/dL and in very high risk patients is <70 mg/dL. VLDL-Cholesterol 14 0 - 30 mg/dL [facility] LAB Cholesterol/HDL Ratio 2.2 0.0 - 5.0 [facility] LAB Specimen Anatomical Collection Method Collection Time Receive d Time (Source) Location / / Volume Laterality Blood specimen 03/09/2014 9:16 AM 014 9:21 (specimen) SEXUAL ASSAULT COUNSELLOR AM SEXUAL ASSAULT COUNSELLOR Jayson Lombardo MD LAB - BLOOD ORDERABLES Performing Organization Address City/[facility]/ZIP Code Phon e Number [address] [address] [facility] documented in this encounter Visit Diagnoses Diagnosis Routine general medical examination at a health care facility - Primary Abnormal uterine bleeding Unspecified disorder of menstruation and other abnormal bleeding from female genital tract CARDIOVASCULAR SCREENING; LDL GOAL LESS THAN 160 documented in this encounter Care Teams Fresh Foods Technician Relationship Specialty Start Date End Date Jayson Lombardo MD PCP - General Family Practice 03/24/13 documented as of this encounter
--- OUTSIDE RECORDS SUMMARY | 2022-02-16 13:03 | XMS_ITS | Encounter Summary ---
:1990 Author Organization [place] Address [address] [place] [address] Care Team Providers Name Role Phone Chela Servin PA-C Primary Care Provider Reason for Visit Reason Comments Cough Chest Pain Encounter Details Date Type Department Care Team Description 01/05/2013 Office Visit [facility] Jayson Lombardo Coug h (Primary Dx); Clinic [facility] [address] [place] [address] Social History Tobacco Use Types [...] encounter Progress Notes Jayson Lombardo MD - 01/05/2013 8:04 AM CDT SUBJECTIVE: [...] fatigue and symptoms above. Jayson Lombardo MD [facility] documented in this encounter Nursing Notes 01/05/2013 [...] completed using cuff size: regular Hilton Awan THERAPEUTIC STRATEGY LEAD documented in this encounter Plan of Treatment [...] Sodium 140 133 - 144 [facility] mmol/L [facility] Potassium 4.1 3.4 - 5.3 [facility] mmol/L [facility] Chloride 104 94 - 109 [facility] mmol/L [facility] Carbon Dioxide 26 20 - 32 [facility] mmol/L [facility] Anion Gap 10 6 - 17 [facility] mmol/L [facility] Glucose 67 60 - 99 [facility] mg/dL [facility] Urea Nitrogen 12 5 - 24 [facility] mg/dL [facility] Creatinine 0.87 0.52 - [facility] 1.04 mg/dL [facility] GFR Estimate 81 >60 [facility] mL/min/1.7 [facility] m2 GFR Estimate If >90 >60 [place] Black mL/min/1.7 [facility] m2 Calcium 9.3 8.5 - 10.4 [facility] mg/dL [facility] Specimen Anatomical Collection Method Collection Time Receive d Time (Source) Location / / Volume Laterality Blood specimen 01/05/2013 8:37 AM 013 8:39 (specimen) CDT AM CDT Jayson Lombardo MD LAB - BLOOD ORDERABLES Performing Organization Address City/State/ZIP Code Phon e Number [facility] [address] [place] [address] TSH with free T4 reflex (01/05/2013 8:37 AM CDT) athologist Signature TSH 1.89 0.4 - 5.0 [facility] mU/L [place] Specimen Anatomical Collection Method Collection Time Receive d Time (Source) Location / / Volume Laterality Blood specimen 01/05/2013 8:37 AM 013 8:39 (specimen) CDT AM CDT Jayson Lombardo MD LAB - BLOOD ORDERABLES Performing Organization Address City/State/ZIP Code Phon e Number [facility] [address] [place] [address] [facility] [address] [place], [place] [address] CBC with platelets (01/05/2013 8:37 AM CDT) athologist Signature WBC 5.3 4.0 - 11.0 [place] 10e9/L [facility] RBC Count 4.49 3.8 - 5.2 [place] 10e12/L [facility] Hemoglobin 13.4 11.7 - [place] 15.7 g/dL [facility] Hematocrit 39.4 35.0 - [place] 47.0 % [facility] MCV 88 78 - 100 [place] fl [facility] MCH 29.8 26.5 - [place] 33.0 pg [facility] MCHC 34.0 31.5 - [place] 36.5 g/dL [facility] RDW 12.2 10.0 - [place] 15.0 % [facility] Platelet Count 153 150 - 450 [place] 10e9/L [facility] Specimen Anatomical Collection Method Collection Time Receive d Time (Source) Location / / Volume Laterality Blood specimen 01/05/2013 8:37 AM 013 8:39 (specimen) CDT AM CDT Jayson Lombardo MD LAB - BLOOD ORDERABLES Performing Organization Address City/State/ZIP Code Phon e Number [facility] [address] [place] [address] documented in this encounter Visit Diagnoses Diagnosis Cough - Primary Fatigue Other malaise and fatigue documented in this encounter Care Teams Warehouse Checker Relationship Specialty Start Date End Date Fidel-Chela Engel PA-C PCP - General Family Practice 08/05/10 03/23/13 [address] [place] [address] documented as of this encounter
--- OUTSIDE RECORDS SUMMARY | 2022-02-16 13:03 | XMS_ITS | Encounter Summary ---
:1990 Author Organization [place] Address [address] [place] [address] Care Team Providers Name Role Phone Jayson Lombardo MD Primary Care Provider Unavailable Reason for Visit Reason Onset Date Comments Medication Problem 09/07/2013 Topamax Encounter Details Date Type Department Care Team Description 09/07/2013 Telephone [facility] Jayson Lombardo, [facility] Problem Clinic Araceli RAMOS (Topamax) [facility] [address] [place] [address] Social History Tobacco Use Types [...] VM advising the following. Annabelle Hwang RN [facility] Work Force Telephone Encounter - Chela [...] new symptoms develop, call your PCP or [facility] as soon as possible. Pt would like to know if she can DC medication. Does she have to taper off or can she just DC? Stateshe doesn't want to be on it anymore. Please advise. Chart needs to be updated. PT: [phone] (Ok to ) Thank you! Annabelle Hwang RN documented in this encounter Plan of Treatment Not on filedocumented as of this encounter Visit Diagnoses Diagnosis Migraines Migraine, unspecified, without mention o f intractable migraine without mention of status migrainosus documented in this encounter Care Teams Dehydrogenation Operator Head Relationship Specialty Start Date End Date Jayson Lombardo MD PCP - General Family Practice 03/24/13 documented as of this encounter
--- OUTSIDE RECORDS SUMMARY | 2022-02-16 13:03 | XMS_ITS | Encounter Summary ---
:1990 Author Organization [place] Address [address] [facility] [place] [address] Care Team Providers Name Role Phone Jayson Lombardo MD Primary Care Provider Unavailable Reason for Referral Consultation - Closed Specialty Diagnoses / Procedures Referred By Contact Refer red To Contact Diagnoses Headache(784.0) Chela Servin [facility] [address] [place] [address] [place] [address] Phone: Fax: Referral ID Status Reason Start Date Expiration Date Visits Requ ested Visits Authorized [id number] Closed 08/10/2013 02/06/2014 1 1 Reason for Visit Reason Comments Recheck Medication imitrex Encounter Details Date Type Department Care Team Description 08/10/[address] [facility] Nakul Servin (Primary Dx); Clinic [place] Chela Contreras PA-C Migraines; [address] [address] [place] [facility] [employer] [place] [id number] [phone] Social History Tobacco Use Types Packs/Day Years [...] from the original note were not included. (371.56) Migraines Comment: Plan: Take 1 tablet (25 [...] more often than directed. Talk to your commissioner public works regarding the use of this medicine in children. Special care may be needed. While this drug may be prescribed for children as young as 2 years of age for selected conditions, precautions do apply. Overdosage: If you think you have taken too much of this medicine contact a poison control center [facility] at once. NOTE: This medicine [...] Visit your doctor or health skin care specialist for regular checks on your progress. Do [...] be reported to your health skin care specialist right away. This medicine may increase the [...] this medicine may enroll in the [place] Antiepileptic Drug Registry by calling . This registry collects information about the safetyof antiepileptic drug use during . What side effects may I notice from receiving this medicine? Side effects that you should report to your doctor or health skin care specialist as soon as possible: ?? allergic reactions [...] to your doctor or health skin care specialist if they continue or are bothersome): ?? altered taste ?? back pain, joint or muscle aches and pains ?? diarrhea, or constipation ?? headache ?? loss of appetite ?? nausea ?? stomach upset, indigestion ?? tremors This list may not describe all possible side effects. Call your doctor for medical advice about sideeffects. You may report side effects to FDA at 0-201-LQP-6301. Where should I keep my medicine? Keep [...] MG-MCG per tablet Chela Servin PA-C, [facility] Patient Instructions (346.90) Migraines Comment: Plan: Take [...] more often than directed. Talk to your commissioner public works regarding the use of this medicine in children. Special care may be needed. While this drug may be prescribed for children as young as 2 years of age for selected conditions, precautions do apply. Overdosage: If you think you have taken too much of this medicine contact a poison control center [facility] at once. NOTE: This medicine [...] Visit your doctor or health skin care specialist for regular checks on your progress. Do [...] be reported to your health skin care specialist right away. This medicine may increase the [...] this medicine may enroll in the [place] Antiepileptic Drug Registry by calling . This registry collects information about the safetyof antiepileptic drug use during . What side effects may I notice from receiving this medicine? Side effects that you should report to your doctor or health skin care specialist as soon as possible: ?? allergic reactions [...] to your doctor or health skin care specialist if they continue or are bothersome): ?? altered taste ?? back pain, joint or muscle aches and pains ?? diarrhea, or constipation ?? headache ?? loss of appetite ?? nausea ?? stomach upset, indigestion ?? tremors This list may not describe all possible side effects. Call your doctor for medical advice about sideeffects. You may report side effects to FDA at 6-006-GVK-7739. Where should I keep my medicine? Keep [...] cycle documented in this encounter Care Teams Inhalation Therapy Teacher Relationship Specialty Start Date End Date Jayson Lombardo MD PCP - General Family Practice 03/24/13 documented as of this encounter
--- OUTSIDE RECORDS SUMMARY | 2022-02-16 13:03 | XMS_ITS | Encounter Summary ---
:1990 Author Organization [place] Address [facility] [place] [address] Care Team Providers Name Role Phone Jayson Lombardo MD Primary Care Provider Unavailable Reason for Visit Reason Onset Date Comments Refill Request 07/25/2013 SUMAtriptan (IMITREX ) 100 MG tablet Encounter Details Date Type Department Care Team Description 07/25/2013 Shawanda Luu [facility] Mal[place], Refill Request Clinic [place] Chela Contreras PA-C (SUMAtriptan (IMITREX) [address] [facility] [id number] [place] [address] [address] ... [place] [address] [phone] Social History Tobacco Use Types Packs/Day Years [...] tablet, MIGRAINE ACTION PLAN Annabelle Hwang RN [place] [employer] [employer] Telephone Encounter - Mel Ruggiero - 07/26/2013 8:23 AM CDT Message from [employer]: Original authorizing provider: Chela Servin PA-C, [facility] Simon would like a refill of the following medications: SUMAtriptan (IMITREX) 100 MG tablet [Chela Servin PA-C, R[facility]] Preferred pharmacy: [id number] [address] [facility] Comment: documented in this encounter Plan of Treatment Not on filedocumented as of this encounter Visit Diagnoses Diagnosis Migraines Migraine, unspecified, without mention o f intractable migraine without mention of status migrainosus documented in this encounter Care Teams Paediatric Thoracic Physician Relationship Specialty Start Date End Date Jayson Lombardo MD PCP - General Family Practice 03/24/13 documented as of this encounter
--- OUTSIDE RECORDS SUMMARY | 2022-02-16 13:03 | XMS_ITS | Encounter Summary ---
:1990 Author Organization [place] Address [address] [place] [address] Care Team Providers Name Role Phone Chela Servin PA-C Primary Care Provider Reason for Visit Reason Comments Chest Pain Encounter Details Date Type Department Care Team Description 08/22/2012 Office Visit [facility] Jayson Lombardo Chest tahmina n (Primary Dx); Clinic [place] MD Juwan Heart palpitations; [address] [facility] MVP (mitral valve prolapse) [place] [address] Social History Tobacco Use Types [...] disorders documented in this encounter Care Teams Needle Control Cheniller Relationship Specialty Start Date End Date Fidel-Chela Engel PA-C PCP - General Family Practice 08/05/10 03/23/13 [address] [place] [address] documented as of this encounter
--- OUTSIDE RECORDS SUMMARY | 2022-02-16 13:03 | XMS_ITS | Encounter Summary ---
:1990 Author Organization [place] Address [address] [place] [address] Care Team Providers Name Role Phone Jayson Lombardo MD Primary Care Provider Unavailable Reason for Visit Reason Comments Triage Extreme lower ABD pain onset today after 1 week of slight ABD discomfort, sent to Urgency Room per Dr. Colon . Encounter Details Date Type Department Care Team Description 03/24/2013 Office Visit [facility] Urgent DIAGNO SIS NOT YET DEFINED Care (Primary Dx) [address] [place] [address] Social History Tobacco Use Types [...] Comments Blood Pressure 104/70 03/24/2013 7:16 PM INSURANCE INVESTIGATOR Pulse 90 03/24/2013 7:16 PM INSURANCE INVESTIGATOR Temperature 36.9 ??C (98.5 ??F) 03/24/2013 7:16 PM INSURANCE INVESTIGATOR Respiratory Rate - - Oxygen Saturation 97% 03/24/2013 7:16 PM INSURANCE INVESTIGATOR Inhaled Oxygen Concentration - - Weight 47.6 kg (105 lb) 03/24/2013 7:16 PM INSURANCE INVESTIGATOR Height - - Body Mass Index 16.45 01/05/2013 8:06 AM CDT documented in this encounter Progress Notes Nidia Diaz MD - 04/28/2013 3:47 PM CST See nurse note RANCE INVESTIGATOR documented in this encounter Nursing Notes 03/24/2013 [...] for convience purposes. Aster Jerome MA >> ASTER JEROME WedMar 24, 2013 7:17 PM Patient [...] Primary documented in this encounter Care Teams Client Renewal Specialist Relationship Specialty Start Date End Date Jayson Lombardo MD PCP - General Family Practice 03/24/13 documented as of this encounter
--- OUTSIDE RECORDS SUMMARY | 2022-02-16 13:03 | XMS_ITS | Encounter Summary ---
:1990 Author Organization [place] Address [address] [place] [address] Care Team Providers Name Role Phone Jayson Lombardo MD Primary Care Provider Unavailable Reason for Visit Reason Onset Date Comments ER F/U 03/27/2013 [facility] Encounter Details Date Type Department Care Team Description 03/27/2013 [facility] Jayson Lombardo Ra, MD ER F/U ([facility]) [place] [address] [place] [address] Social History Tobacco Use [...] on behalf of Dr. Lombardo's office at [place]. I am calling to follow up and [...] contact us through the main clinic number, [phone] in if the clinic is not open, triage nurses are available 05/10 to help you. We would like you to know that our clinic has extended hours (provide information). We also have urgent care (provide details on closest location and hours/contact info) Thank you for your time and take care! Kaylynn Cooper, RN [facility] HEALTH NURSE Telephone Encounter - Kaylynn Cooper RN - 03/29/2013 9:33 AM CST ED / Discharge Outreach Protocol Patient Contact Attempt # 1 Was call answered? No. Left message on voicemail with information to call me back. Kaylynn Cooper, RN IC HEALTH NURSE Telephone Encounter - Dagmar Godfrey - 03/27/2013 12:10 PM CST 03/24/2013 abdominal pain No future appt Dagmar Godfrey Environmental Remediation Engineer IC HEALTH NURSE documented in this encounter Plan of Treatment Not on filedocumented as of this encounter Visit Diagnoses Not on filedocumented in this encounter Care Teams Improvement Auditor Relationship Specialty Start Date End Date Jayson Lombardo MD PCP - General Family Practice 03/24/13 documented as of this encounter
--- OUTSIDE RECORDS SUMMARY | 2022-02-16 13:03 | XMS_ITS | Encounter Summary ---
:1990 Author Organization [place] Address [address] [place] [address]. [place] [address] Care Team Providers Name Role Phone Chela Servin PA-C Primary Care Provider [phone] Jayson Lombardo MD Primary Care Provider Unavailable Jayson Lombardo MD Unavailable Unavailable Jayson Lombardo MD Unavailable Unavailable Jayson Lombardo MD Unavailable Unavailable Reason for Visit Reason Onset Date Comments Outreach 02/01/2013 [facility] Encounter Details Date Type Department Care Team Description 02/01/2013 Telephone [facility] Danica Servin ([facility]) [place] Chela Contreras PA-C [address] [facility] [address] [place] [address] [place] [address] (Wo rk) Social History Tobacco [...] Attempt 1 Message on voicemail Comments: Outreach [employer] documented in this encounter Plan of Treatment Not on filedocumented as of this encounter Visit Diagnoses Not on filedocumented in this encounter Care Teams Wind Science And Planning Relationship Specialty Start Date End Date Chela Servin, PCP - General Family Practice 08/05/10 03/23/13 [place] [address] [place] [address] Jayson Lombardo MD PCP - General Family Practice 03/24/13 Jayson Lombadro MD PCP - Assigned PCP 08/12/14 05/17/18 Jayson Lombardo MD Assigned PCP 08/12/14 04/20/20 Jayson Lombardo MD Assigned PCP 06/16/20 2 documented as of this encounter
--- OUTSIDE RECORDS SUMMARY | 2022-02-16 13:03 | XMS_ITS | Encounter Summary ---
:1990 Author Organization [place] Address [address] [place] [address] Care Team Providers Name Role Phone Chela Servin PA-C Primary Care Provider Jayson Lombardo MD Primary Care Provider Unavailable Jayson Lombardo MD Unavailable Unavailable Jayson Lombardo MD Unavailable Unavailable Encounter Details Date Type Department Care Team Description 08/23/2012 Historic Results [facility] Heart Unknown, [address] [address] Social History Tobacco Use Types [...] on filedocumented in this encounter Care Teams Compensation And Benefits Advisor Relationship Specialty Start Date End Date Chela Servin, PCP - General Family Practice 08/05/10 03/23/13 [place] [address] [place] [address] Jayson Lombardo MD PCP - General Family Practice 03/24/13 Jayson Lombardo MD PCP - Assigned PCP 08/12/14 05/17/18 Jayson Lombardo MD Assigned PCP 08/12/14 04/20/20 documented as of this encounter
--- OUTSIDE RECORDS SUMMARY | 2022-02-16 13:03 | XMS_ITS | Encounter Summary ---
:1990 Author Organization [place] Address [address] [place] [address] Care Team Providers Name Role Phone Jayson Lombardo MD Primary Care Provider Unavailable Reason for Visit Reason Onset Date Comments Formulary Issue 08/11/2013 SUMAtriptan 100MG Encounter Details Date Type Department Care Team Description 08/11/2013 Telephone [facility] Jayson Lombardo, Form [facility] Issue Clinic Roque RAMOS (SUMAtriptan 100MG) [address] [place] [address] Social History Tobacco Use Types [...] on filedocumented in this encounter Care Teams Transition Lead Relationship Specialty Start Date End Date Jayson Lombardo MD PCP - General Family Practice 03/24/13 documented as of this encounter
--- OUTSIDE RECORDS SUMMARY | 2022-02-16 13:03 | XMS_ITS | Encounter Summary ---
:1990 Author Organization [place] Address [address] [place] [address] Care Team Providers Name Role Phone Chela Servin PA-C Primary Care Provider [phone] Reason for Visit (Routine) - Closed Specialty Diagnoses / Procedures Referred By Contact Refer red To Contact Radiology / Radiology. Diagnoses R#N/A,Epic,no creat,sb pt. Rh Ct Scan Procedures CT CHEST [address] [place] [address] Phone: Fax: Referral ID Status Reason Start Date Expiration Date Visits Requ ested Visits Authorized [id number] Closed 02/07/2013 02/07/2014 1 1 Encounter Details Date Type Department Care Team Description 02/08/2013 Hospital Encounter [facility] Jayson Lombardo Dys pnea; Arleen Echeverria MD Pleuritic chest pain [address] [place] [address] Social History Tobacco Use Types [...] Scan, Non-Provider - 02/13/2013 6:52 AM CST NCIAL ADVISER documented in this encounter Plan of Treatment Not on filedocumented as of this encounter Procedures Procedure Name Priority Date/Time Associated Diagnosis Comme nts CT CHEST W CONTRAST Routine 02/08/2013 5:04 PM Dyspnea Results for this FINANCIAL ADVISER Pleuritic chest pain procedu re are in the results section. documented in this encounter Results CT Chest w Contrast (02/08/2013 5:04 PM FINANCIAL ADVISER) Anatomical Region Laterality Modality Chest, SUBRAD CT BODY, UMP CT CHEST Comp uted Tomography Specimen (Source) Anatomical Location Collection Method / Collectio n Time Received Time / Laterality Volume Impressions 02/08/2013 7:58 PM FINANCIAL ADVISER IMPRESSION: 1. ??No evidence of pulmonary embolism. ??Thoracic aorta is unremarkable. 2. ??Lungs are clear. ??No enlarged lymp h nodes. NANY CORDERO MD Narrative 02/08/2013 7:[address] CHEST WITH CONTRAST 02/08/2013 5:04 PM [...] iopamidol (ISOVUE-370) 76% Given 02/08/2013 5:02 PM FINANCIAL ADVISER 67 mLs solution 500 mL 500 mL, Intravenous, ONCE, On Wed02/08/13 at 1700, For 1 dose sodium chloride 0.9 % BOLUS 1,000 mL New Bag 02/08/2013 5:02 PM FINANCIAL ADVISER 75 mLs Intravenous, 1,000 mL, ONCE, On Wed02/08/13 at 1700, For 1 dose documented in this encounter Care Teams Bookkeeper Assistant Relationship Specialty Start Date End Date Aasebjose-Chela Engel PA-C PCP - General Family Practice 08/05/10 03/23/13 [address] [place] [address] documented as of this encounter
--- OUTSIDE RECORDS SUMMARY | 2022-02-16 13:03 | XMS_ITS | Encounter Summary ---
:1990 Author Organization [place] Address [address] [place] [address] Care Team Providers Name Role Phone Jayson Lombardo MD Primary Care Provider Unavailable Reason for Visit Reason Onset Date Comments Panel Management 06/09/2013 Encounter Details Date Type Department Care Team Description 06/09/2013 Telephone [facility] Jayson Lombardo Ra, MD Panel Management [place] [id number] [place] [address] Social History Tobacco Use Types [...] has not read her mychart. Mel Ruggiero Cement Sprayer Helper Telephone Encounter - Kym Sanchez CMA - 06/09/2013 10:57 AM CDT Panel Management Review Date of last visit with a [place] provider: unknown on 03/24/13. Date of next visit with a [place] provider: None. Problem List Patient Active Problem [...] visit for pap. Type of outreach: Sent [facility] message. Questions for provider review: None Please indicate office visit, lab, MTM, or nurse appt if needed. Indicate fasting or not fasting. Kym Sanchez CMA Chart routed to Care Team . documented in this encounter Plan of Treatment Not on filedocumented as of this encounter Visit Diagnoses Not on filedocumented in this encounter Care Teams Music Manager Relationship Specialty Start Date End Date Jayson Lombardo MD PCP - General Family Practice 03/24/13 documented as of this encounter
--- OUTSIDE RECORDS SUMMARY | 2022-02-16 13:03 | XMS_ITS | Encounter Summary ---
:1990 Author Organization [place] Address [address] [place] [address]. [place] [address] Care Team Providers Name Role Phone Chela Servin PA-C Primary Care Provider Reason for Visit Reason Comments Recheck Medication Headache Encounter Details Date Type Department Care Team Description 10/25/2012 Office Visit [facility] SELINA Servin MENSTRUATION (Primary Dx); [facility] [place] Chela Contreras PA-C Need for Tdap vaccination; [address] [facility] [address] [facility] [place] [address] [id number] Social History Tobacco Use Types Packs/Day Years [...] without talking to your doctor or health critical care specialist. Do not take your medicine moreoften than directed. Talk to your laser set up operator regarding the use of this medicine in children. Special care may be needed. Overdosage: If you think you have taken too much of this medicine contact a poison control center [facility] room at once. NOTE: This medicine is [...] as dexfenfluramine, dextroamphetamine, fenfluramine, or sibutramine ?? Tsaile's wort This list may not describe all [...] should report to your doctor or health critical care specialist as soon as possible: ?? [...] attention (report to your doctor or health critical care specialist if they continue or are bothersome): ?? drowsiness ?? feeling warm, flushing, or redness of the face ?? muscle pain or cramps ?? nausea, vomiting, diarrhea or stomach upset ?? weak or tired This list may not describe all possible side effects. Call your doctor for medical advice about sideeffects. You may report side effects to FDA at 1-053-NVT-8705. Where should I keep my medicine? Keep [...] QUESTIONNAIRE See Patient Instructions NATHANIEL MerchantC, [facility] documented in this encounter Nursing Notes 10/25/2012 [...] completed using cuff size: regular Hilton Sanchez SAP MOBILITY ARCHITECT documented in this encounter Plan of Treatment Not on filedocumented as of this encounter Procedures Procedure Name Priority Date/Time Associated Diagnosis Comme nts MIGRAINE QUESTIONNAIRE Routine 10/25/2012 8:26 AM CDT Migraine s documented in this encounter Visit Diagnoses Diagnosis IRREGULAR MENSTRUATION - Primary Irregular menstrual cycle Need for Tdap vaccination Need for prophylactic vaccination with c ombined ekiqyqasty-nkqawlq-cxxngvnxz (DTP) vaccine Migraines Migraine, unspecified, without mention o f intractable migraine without mention of status migrainosus documented in this encounter Care Teams Ornamental Painter Relationship Specialty Start Date End Date Chela Servin PA-C PCP - General Family Practice 08/05/10 03/23/13 [address] [place] [address] documented as of this encounter
--- OUTSIDE RECORDS SUMMARY | 2022-02-16 13:03 | XMS_ITS | Encounter Summary ---
:1990 Author Organization [place] Address [address] [place] [address]. [place] [address] Care Team Providers Name Role Phone Jayson Lombardo MD Primary Care Provider Unavailable Reason for Visit Reason Comments Abdominal Pain Encounter Details Date Type Department Care Team Description 03/24/2013 Emergency [facility] Emerita Bhatti Ab dominal pain [facility] Emergency Dep t (Primary Dx) [address] [employer] [place], [place] [address] [address] [facility] [phone] [address] [place] [address] (Wo rk) Social History Tobacco Use Types [...] Comments Blood Pressure 105/68 03/24/2013 10:00 PM HANDS PARTER Pulse 104 03/24/2013 7:43 PM HANDS PARTER Temperature 36.7 ??C (98.1 ??F) 03/24/2013 7:43 PM HANDS PARTER Respiratory Rate 16 03/24/2013 7:43 PM HANDS PARTER Oxygen Saturation 100% 03/24/2013 10:00 PM HANDS PARTER Inhaled Oxygen Concentration - - Weight - [...] directed by your doctor today. Before using vaff-sqc-jerpysm medications, ask your doctor and make sure [...] if there is anything that worries you. S PARTER documented in this encounter Medications at Time [...] CST Transported pt. To CT via stretcher. S PARTER Emerita Bhatti MD - 03/24/2013 7:56 PM [...] statements to me. Emerita Bhatti MD 03/24/13 0934 S PARTER Stacey Arellano, RN - 03/24/2013 7:44 PM CST Mid abdominal pain since having the stomach flu last week. Tonight pain sharply increased. States My intestines hurt and that her stool has been wierd today but not diarrhea. ABCs intact. Alert and oriented x 3. S PARTER documented in this encounter Miscellaneous Notes Initial Assessments - Scan, Non-Provider - 03/28/2013 11:40 AM CST S PARTER documented in this encounter Plan of Treatment Not on filedocumented as of this encounter Procedures Procedure Name Priority Date/Time Associated Comments Diagnosis CT ABDOMEN PELVIS W STAT 03/24/2013 9:12 PM Re sults for this CONTRAST HANDS PARTER procedure are i n the results section. HCG QUALITATIVE URINE STAT 03/24/2013 8:10 PM Results for this HANDS PARTER procedure are i n the results section. ROUTINE UA WITH STAT 03/24/2013 8:10 PM Result s for this MICROSCOPIC HANDS PARTER procedure are i n the results section. URINE CULTURE Routine 03/24/2013 8:10 PM Results for this HANDS PARTER procedure are i n the results section. CBC WITH PLATELETS & STAT 03/24/2013 8:00 PM R esults for this DIFFERENTIAL HANDS PARTER procedure are i n the results section. LIPASE STAT 03/24/2013 8:00 PM Results f or this HANDS PARTER procedure are i n the results section. COMPREHENSIVE STAT 03/24/2013 8:00 PM Results for this METABOLIC PANEL HANDS PARTER procedure ar e in the results section. documented in this encounter Results CT Abdomen Pelvis w Contrast (03/24/2013 9:12 PM HANDS PARTER) Anatomical Region Laterality Modality Abdomen/Pelvis, SUBRAD CT BODY, UMP CT ABDOMEN PELVIS Computed Tomography Specimen (Source) Anatomical Location Collection Method / Collectio n Time Received Time / Laterality Volume Impressions 03/24/2013 10:02 PM HANDS PARTER IMPRESSION: 1. ??Unremarkable CT abdomen and pelvis with contrast. ??No evidence of diverticulitis. ??Appendix not visualize d but no inflammation is noted about the cecum to suggest acute appendi citis. ??No free pelvic fluid or adnexal mass. 2. ??Fluid-filled loops of distal small bowel without distention could indicate gastroenteritis in the correct clinical setting. NANY CORDERO MD Narrative 03/24/2013 10:[address] ABDOMEN AND PELVIS WITH CONTRAST 03/24/2013 [...] CT ORDERABLES Urine culture (03/24/2013 8:10 PM HANDS PARTER) Component Value Ref Test Analysis Performed At [facility] Range Method Time Signature Specimen Midstream Urine [facility] LAB Special Specimen [facility] Requests received in MICROBIOLOGY preservative Culture Micro No growth [facility] MICROBIOLOGY Micro Report FINAL [facility] Status 03/26/2013 MICROBIOLOGY Specimen Anatomical Collection Method Collection Time Receive d Time (Source) Location / / Volume Laterality 03/24/2013 8:10 PM 4 HANDS PARTER 10:20 PM HANDS PARTER Emerita Bhatti MD LAB - MICRO GENERAL ORDERABL ES Performing Organization Address City/State/ZIP Code Phon e Number [phone] [place] [address] LAB [facility] MICROBIOLOGY (ABNORMAL) UA with Microscopic (03/24/2013 8:10 PM HANDS PARTER) [facility] [place] Method Time Signature Color Urine Yellow [facility] LAB Appearance Urine Cloudy [facility] Glucose Urine Negative NEG mg/dL [facility] Bilirubin Urine Negative NEG [facility] LAB Ketones Urine 40 (A) NEG mg/dL [facility] Specific [place] 1.029 1.003 - [place] Urine 1.035 [facility] Blood Urine Negative NEG [facility] LAB pH Urine 6.0 5.0 - 7.0 [place] pH [facility] Protein Albumin 10 (A) NEG mg/dL [facility] LAB Urobilinogen 2.0 0.0 - 2.0 [place] mg/dL mg/dL [facility] Nitrite Urine Negative NEG [facility] Leukocyte Negative NEG [place] Esterase Urine [facility] Source Midstream [place] Urine [facility] WBC Urine 0 0 - 2 [facility] RBC Urine 0 0 - [address] [facility] Bacteria Urine Many (A) NEG /HPF [facility] Squamous 2 (H) 0 - 1 [place] Epithelial /HPF /HPF [facility] LAB Mucous Urine Present (A) NEG /LPF [facility] Amorphous Many (A) NEG /HPF [place] Crystals [facility] Specimen Anatomical Collection Method Collection Time Receive d Time (Source) Location / / Volume Laterality Urine specimen URINE SPECIMEN 03/24/2013 8:10 PM 03/24 9:51 (specimen) OBTAINED BY CLEAN HANDS PARTER PM HANDS PARTER CATCH PROCEDURE / Unknown Emerita Bhatti MD LAB - URINE ORDERABLES Performing Organization Address City/[facility] Phon e Number M [facility] [address], [place] [address] [phone] [place] [address] LAB HCG qualitative urine (03/24/2013 8:10 PM HANDS PARTER) P athologist Signature HCG Qual Urine Negative NEG [facility] LAB Specimen Anatomical Collection Method Collection Time Receive d Time (Source) Location / / Volume Laterality Urine specimen URINE SPECIMEN 03/24/2013 8:10 PM 03/24 8:26 (specimen) OBTAINED BY CLEAN HANDS PARTER PM [facility]S [facility] CATCH PROCEDURE / Unknown Emerita Bhatti MD LAB - URINE ORDERABLES Performing Organization Address City/[facility]/ZIP [facility] Phon e Number M [facility] [address], [place] [address] [facility] LAB Lipase (03/24/2013 8:00 PM HANDS PARTER) P athologist Signature Lipase 174 20 - 250 [facility] U/L [facility] LAB Specimen Anatomical Collection Method Collection Time Receive d Time (Source) Location / / Volume Laterality Blood specimen 03/24/2013 8:00 PM 014 8:08 (specimen) HANDS PARTER PM [facility]S PARTER Emerita Bhatti MD LAB - BLOOD ORDERABLES Performing Organization Address City/[facility] Phon e Number M [facility] [address], [place] [address] [facility] LAB Comprehensive metabolic panel (03/24/2013 8:00 PM HANDS PARTER) P athologist Signature Sodium 141 133 - 144 [place] mmol/L [facility] Potassium 3.6 3.4 - 5.3 [place] mmol/L [facility] Chloride 101 94 - 109 [place] mmol/L [facility] Carbon Dioxide 29 20 - 32 [place] mmol/L [facility] Anion Gap 12 6 - 17 [place] mmol/L [facility] Glucose 83 60 - 99 [place] mg/dL [facility] Urea Nitrogen 13 5 - 24 [place] mg/dL [facility] Creatinine 0.84 0.52 - [facility] 1.[facility] mg/dL [facility] LAB GFR Estimate 84 >60 [place] mL/min/[address] [place] [address] LAB GFR Estimate If >90 >60 [place] Black mL/min/1.[address] [place] [address] LAB Calcium 9.4 8.5 - 10.4 [place] mg/dL [facility] LAB Bilirubin Total 0.6 0.2 - 1.3 [place] mg/dL [facility] Albumin 4.3 3.9 - 5.1 [place] g/dL [facility] Protein Total 8.0 6.8 - 8.8 [place] g/dL [facility] LAB Alkaline 52 40 - 150 [place] Phosphatase U/L [facility] LAB ALT 50 0 - 50 U/L [facility] AST 26 0 - 45 U/L [facility] LAB Specimen Anatomical Collection Method Collection Time Receive d Time (Source) Location / / Volume Laterality Blood specimen 03/24/2013 8:00 PM 014 8:08 (specimen) HANDS PARTER PM [facility]S PARTER Emerita Bhatti MD LAB - BLOOD ORDERABLES Performing Organization Address City/State/ZIP Code Phon arnold Cruz [facility] [address], [place] [address] [facility] LAB (ABNORMAL) CBC with platelets differential (03/24/2013 8:00 PM HANDS PARTER) Patholo gist Method Time Signature WBC 15.8 (H) 4.0 - [place] 11.0 [facility] LAB RBC Count 4.99 3.8 - 5.2 [place] 10e12/L [facility] Hemoglobin 15.0 11.7 - [place] 15.7 g/dL [facility] LAB Hematocrit 42.8 35.0 - [place] 47.0 % [facility] MCV 86 78 - 100 [place] fl [facility] LAB MCH 30.1 26.5 - [place] 33.0 pg [facility] MCHC 35.0 31.5 - [place] 36.5 g/dL [facility] LAB RDW 12.6 10.0 - [place] 15.0 % [facility] LAB Platelet Count 206 150 - [address] LAB Diff Method Automated [facility] LAB % Neutrophils 77.2 % [facility] LAB % Lymphocytes 16.1 % [facility] % Monocytes 6.3 % [facility] % Eosinophils 0.2 % [facility] % Basophils 0.1 % [facility] LAB % Immature 0.1 % [place] Granulocytes [facility] LAB Absolute 12.2 (H) 1.6 - 8.3 [place] Neutrophil [facility] LAB Absolute 2.6 0.8 - 5.3 [place] Lymphocytes [address] [place] [address] LAB Absolute 1.0 0.0 - 1.3 [place] Monocytes [address] [place] [address] LAB Absolute 0.0 0.0 - 0.7 [place] Eosinophils [address] LAB Absolute 0.0 0.0 - 0.2 [place] Basophils [address] [place] [address] LAB Abs Immature 0.0 0 - 0.4 [place] Granulocytes [address] [place] [address] LAB Specimen Anatomical Collection Method Collection Time Receive d Time (Source) Location / / Volume Laterality Blood specimen 03/24/2013 8:00 PM 014 8:08 (specimen) HANDS PARTER PM HANDS PARTER Emerita Bhatti MD LAB - BLOOD ORDERABLES Performing Organization Address City/State/ZIP Code Phon e Number M [facility] [address], [place] [address] [phone] [place] [address] LAB documented in this encounter Visit Diagnoses Diagnosis Abdominal pain - Primary Abdominal pain, unspecified site documented in this encounter Administered Medications Inactive Administered Medications - up to 3 most recent administrations Medication Order MAR Action Action Date Dose Rate Site iohexol (OMNIPAQUE) 140 mg/mL Given 03/24/2013 8:14 PM HANDS PARTER 25 mL s solution 25 mL 25 [...] solution 500 mL Given 03/24/2013 9:07 PM HANDS PARTER 52 mLs 500 mL, Intravenous, ONCE, On Wed03/24/13 at 2100, For 1 dose ketorolac (TORADOL) injection 30 mg Given 03/24/2013 8:15 PM HANDS PARTER 30 mg 30 mg, Intravenous, ONCE, On Wed03/24/13 at 2015, For 1 dose, Do not give within 6 hours of Ibuprofen. ondansetron (ZOFRAN) injection 4 mg Given 03/24/2013 8:15 PM HANDS PARTER 4 mg 4 mg, Intravenous, EVERY 30 MIN PRN, nausea, vomiting, Administer over 2-5 Minutes, Starting on Wed03/24/13 at 2001, For 3 doses, May repeat in 30 minutes as needed, up to 3 doses. sodium chloride 0.9 % BOLUS New Bag 03/24/2013 8:15 PM HANDS PARTER 1,000 m Ls 1000 mL/hr 1,000 mL Intravenous, 1,000 mL, ONCE, at 1,000 mL/hr, Administer over 1 Hours, On Wed03/24/13 at 2015, For 1 dose sodium chloride 0.9 % BOLUS 1,000 mL New Bag 03/24/2013 9:09 PM HANDS PARTER 53 mLs Intravenous, 1,000 mL, ONCE, On Wed03/24/13 at 2100, For 1 dose documented in this encounter Active and Recently Administered Medications Times are shown in HANDS PARTER. Scheduled Medication Order 03/22/2013 03/23/2013 03/24/2013 iohexol [...] doses. documented in this encounter Care Teams Commission Clerk Relationship Specialty Start Date End Date Jayson Lombardo MD PCP - General Family Practice 03/24/13 documented as of this encounter
--- OUTSIDE RECORDS SUMMARY | 2022-02-16 13:03 | XMS_ITS | Encounter Summary ---
:1990 Author Organization [place] Address [address] [place] [address] Care Team Providers Name Role Phone Jayson Lombardo MD Primary Care Provider Unavailable Reason for Visit Reason Onset Date Comments Panel Management 01/10/2014 Encounter Details Date Type Department Care Team Description 01/10/2014 Telephone [facility] Jayson Lombardo Ra, MD Panel Management [id number] [place] [phone] Social History Tobacco Use Types Packs/Day Years Used Date Smoking Tobacco: Never Smokeless Tobacco: Never Alcohol Use Standard Drinks/Week Comments Yes 0 (1 standard drink = 0.6 oz pure alcoho l) Sex Assigned at Date Recorded Female 05/29/2020 7:33 PM CDT documented as of this encounter Miscellaneous Notes Telephone Encounter - WeissJed her, YARD PILOT - 01/10/2014 2:44 PM CDT Panel Management Review Date of last visit with a [facility] provider: Chela Engel on 08-10-13. Date of next visit with a [facility] provider: None. Problem List Patient Active Problem [...] on filedocumented in this encounter Care Teams Facility Maintenance Mechanic Relationship Specialty Start Date End Date Jayson Lombardo MD PCP - General Family Practice 03/24/13 documented as of this encounter
--- OUTSIDE RECORDS SUMMARY | 2022-02-16 13:03 | XMS_ITS | Encounter Summary ---
:1990 Author Organization [place] Address [address] [place] [address] Care Team Providers Name Role Phone Jayson Lombardo MD Primary Care Provider Unavailable Reason for Visit Reason Onset Date Comments Forms 03/09/2014 Biometric screening form Encounter Details Date Type Department Care Team Description 03/09/2014 Telephone [facility] Jayson Lombardo, Form s ([facility] [place] screening form) [address] [place] [address] Social History Tobacco Use Types [...] sent to abstraction and a copy to [employer] folder at the station. Mel Ruggiero Linotype Machinist Apprentice LOP BINDER documented in this encounter Plan of Treatment Not on filedocumented as of this encounter Visit Diagnoses Not on filedocumented in this encounter Care Teams Functional Skills Tutor Relationship Specialty Start Date End Date Jayson Lombardo MD PCP - General Family Practice 03/24/13 documented as of this encounter
--- OUTSIDE RECORDS SUMMARY | 2022-02-16 13:03 | XMS_ITS | Encounter Summary ---
:1990 Author Organization [place] Address [address] [place] [address] Care Team Providers Name Role Phone Chela Servin PA-C Primary Care Provider [phone] Reason for Visit (Routine) - Closed Specialty Diagnoses / Procedures Referred By Contact Refer red To Contact Cardiology Diagnoses ECHO COMPLETE ADULT W/O CONTRAST Procedure Notes: HEART PALPITATIONS/MITRAL VALVE PROLAPSE Zz Rh Echocar diography Procedures RADIOLOGY [address] [place], [place] [address] Phone: Referral ID Status Reason Start Date Expiration Date Visits Requ ested Visits Authorized [id number] Closed 08/22/2012 08/22/2013 1 1 Encounter Details Date Type Department Care Team Description 08/23/2012 Hospital Encounter [place] Jayson Correa, Cardiopulmonary [address] [place] [address] Social History Tobacco Use Types [...] encounter Results Echocardiogram (08/23/2012 10:00 AM CDT) [facility] Method Time Signature [facility] RADI[facility] Interpretation Summary [...] on filedocumented in this encounter Care Teams Disc Inspector Relationship Specialty Start Date End Date Fidel-Chela Engel PA-C PCP - General Family Practice 08/05/10 03/23/13 [address] [place] [address] documented as of this encounter
--- OUTSIDE RECORDS SUMMARY | 2022-02-16 13:04 | XMS_ITS | Encounter Summary ---
:1990 Author Organization [place] Address [address] [place] [address]. [place] [address] Care Team Providers Name Role Phone Chela Servin PA-C Primary Care Provider [phone] Reason for Visit Auth/Cert - Closed Specialty Diagnoses / Procedures Referred By Contact Refer red To Contact Surgery Diagnoses Left Pneumothorax Sh Periop Services Procedures THORACOSCOPIC WEDGE RESECTION LUNG [address] [place] [address] Phone: Referral ID Status Reason Start Date Expiration Date Visits Requ ested Visits Authorized [id number] Closed 12/19/2010 06/17/2011 1 1 Encounter Details Date Type Department Care Team Description 12/20/2010 - [facility] Demetris Raymond 12/23/2010 Encounter Chino Rayo MD [facility] [place] [facility] [address] [place] [address] [address] [place] [address] Social [...] left video-assisted thoracoscopy with apical blebectomy at [facility]. HOSPITAL COURSE: John George is a 20-year-old [...] as Name: JOHN GEORGE MRN: [id number] Account: [id number] : 1990 Admit Date: [id number] Discharge Date: 12/23/2010 Document: [id number] documented in this encounter Discharge Instructions Discharge [...] Demetris Raymond MD - 02/06/2011 2:23 PM CUSTOMER SERVICE AGENT OMER SERVICE AGENT Constance Duval PA-C - 12/23/2010 8:59 AM [...] Small apical ptx Satisfactory DEMETRIS RAYMOND MD [facility] ONCOLOGY THORACIC SURGERY CELL: OFFICE: documented in [...] Demetris Raymond MD - 02/06/2011 2:19 PM CUSTOMER SERVICE AGENT OMER SERVICE AGENT documented in this encounter Miscellaneous Notes Plan [...] Individualization/Patient-Specific Goal (Adult,OB,Behavioral The patient and/or their transportation services representative will achieve their patient-specific goals related [...] Individualization/Patient-Specific Goal (Adult,OB,Behavioral The patient and/or their transportation services representative will achieve their patient-specific goals related [...] Individualization/Patient-Specific Goal (Adult,OB,Behavioral The patient and/or their transportation services representative will achieve their patient-specific goals related [...] Individualization/Patient-Specific Goal (Adult,OB,Behavioral The patient and/or their transportation services representative will achieve their patient-specific goals related [...] examination was normal. Using multiple applications of [place] 45 mm stapling device, a blebectomywas performed. [...] EM#[id number] Name: JOHN GEORGE MRN: [id number] Account: [id number] : 1990 Procedure Date: 12/20/2010 Document: [id number] Brief Op Note - Demetris Raymond MD - 12/20/2010 9:45 AM CDT [facility] Thoracic Surgery Brief Operative Note Pre-operative diagnosis: [...] apical pneumothor ax unchanged. Demetris Raymond MD [facility] IMAGING ORDER BITA X-ray Chest 1 [...] tiny. 2. Clear lungs. Demetris Raymond MD [facility] ORDER BITA X-ray Chest 1 [...] left apical pneumothor ax. Demetris Raymond MD [facility] ORDER BITA X-ray Chest 1 [...] emphysema on the left. Demetris Raymond MD [facility]AG[facility] ORDER BITA Surgical pathology exam (12/20/2010 9:27 AM CDT) Component Value Ref Test Analysis Performed At [facility] Range Method Time Signature Copath Report Patient Name: JOHN GEORGE MR#: [id number] Specimen #: [id number] Collected: 12/20/2010 Received: 12/20/2010 Reported: 12/23/2010 14:50 [...] throughout. ??N o lesions are identified grossly. ??Special Procedure Technologist sections are submitted. ??SI ??TRS/tw Cassettes 1-2. ??Bisected bleb. 3-4. ??Uninvolved lung parenchyma. MICROSCOPIC: A formal microscopic examination is performed. BCT/ls 12/23/2010 TESTING LAB LOCATION: [facility] [address] [facility] [place] ??[id number] COLLECTION SITE: Client: [facility] Location: SH33 (S) Specimen Anatomical Collection Method Collection Time Receive d Time (Source) Location / / Volume Laterality 12/20/2010 9:27 AM 1 CDT 12:13 PM CDT Demetris Raymond MD LAB - BEAKER AP Performing Organization Address City/State/ZIP Code Phon e Number [place] Hemoglobin (12/20/2010 8:12 AM CDT) P athologist Signature Hemoglobin 12.3 11.7 - 15.7 [place] g/dL [facility] LAB Specimen Anatomical Collection Method Collection Time Receive d Time (Source) Location / / Volume Laterality Blood specimen 12/20/2010 8:12 AM 011 8:15 (specimen) CDT AM CDT Demetris Raymond MD LAB - BLOOD ORDERABLES Performing Organization Address City/State/ZIP Code Phon e Number [facility] [address] [place] [address] [phone] [facility] documented in this encounter Visit [...] mg, Intravenous, EVERY 30 MIN PRN, severe pain (7-10), or if patient unable to take PO, Starting on 12/20/10 at 1221, Hold while on INSURANCE CLAIMS ANALYST., Post-procedure Given 12/20/2010 9:35 PM CDT [...] on 12/20/10 at 1221, Hold while on INSURANCE CLAIMS ANALYST., Post-procedure Given 12/21/2010 4:00 AM CDT [...] TID PRN dressing change by MD., Post-procedure 220 (Not Given - Provider: Sangeetha Martinez RN [...] 0344 ( Given - Provider: Aspen Tom, RN)0912 (Given - Provider: Lizbet Marinelli, MALLORY)1707 (Given - Provider: Malu Casillas) [...] Intravenous, at 75 mL/hr, CONT INUOUS, Starting 10/8/11 at 1230, Discontinue IV Fluids when PO tolerated., Post-procedure PRN Medication Order 12/21/2010 12/22/2010 12/23/2010 bisacodyl (DULCOLAX) suppository 10 mg (CANCELED) 2116 (Given - Provider: Sangeetha Martinez, MALLORY) 0951 (Given - Provider: Glory Arreola RN) [...] Rosario martines, MALLORY)0815 (Given - Provider: Glory Arreola, MALLORY) 1-2 tablet, Oral, EVERY 6 HOURS PRN, mod erate to severe pain, Starting 12/21/10 at 1324, autosub for vicodin HYDROmorphone (DILAUDID) injection 0.2-0.4 mg (CANCELE D) 1309 (Given - Provider: Lizbet Marinelli RN) 0.2-0.4 mg, Intravenous, EVERY 30 MIN TX N, Starting 12/20/10 at 1221, Until Tu12/23/10 at 1526, severe pain, or if patient unable to take PO, Post- procedure, Hold while on INSURANCE CLAIMS ANALYST. ibuprofen (ADVIL,MOTRIN) tablet 600 mg 1842 (Given - Provide r: Malu Casillas) 0125 (Given - Provider: Anna Lane RN)1028 (Given - Provider: Glory Arreola, MALLORY)1645 (Given - Provider: Sangeetha Martinez, MALLORY)2253 (Given - Provider: Sangeetha Martinez RN) 0459 (Given - Provider: Rosario martinesMALLORY) 600 mg, Oral, EVERY 6 HOURS PRN, [...] g (CANCELED) 0057 (Given - Provider: Aspen Tom RN)0400 (Given - Provider: Aspen Tom RN - Comment: Pain increased after pt ambulated to BR)0804 (Given - Provider: Lizbet Marinelli RN) 5-10 mg, Oral, EVERY 3 HOURS PRN, modera te to severe pain, Starting 12/20/10 at 1221, Hold while on INSURANCE CLAIMS ANALYST., Post-procedure documented in this encounter Care Teams Continuous Improvement Engineer Relationship Specialty Start Date End Date Chela Servin PA-C PCP - General Family Practice 08/05/10 03/23/13 [address] [place] [address] documented as of this encounter
--- OUTSIDE RECORDS SUMMARY | 2022-02-16 13:04 | XMS_ITS | Encounter Summary ---
:1990 Author Organization [place] Address [address] [place] [address] Care Team Providers Name Role Phone Olivia Moreno MD Primary Care Provider Reason for Visit Reason Onset Date Comments Medication Request 07/04/2010 AVIANE 0.1-20 MG-MCG PO TABS Encounter Details Date Type Department Care Team Description 07/04/2010 Telephone [facility] Olivia Moreno MD Medication Request Clinic [facility] (AVIANE 0.1-20 MG-MCG [address] [facility] PO TABS) [address] [address] [place] [address] (Wo rk) Social History Tobacco [...] Thanks Olivia Moreno MD Telephone Encounter - yKara Rod - 07/04/2010 11:49 AM CDT Does not meet standard requirement for RN refill protocol. Last OV:03/11/2009 Last refill: AVIANE 0.1-20 MG-MCG PO TABS 3 Package prn 09/09/2009 Sig: ONE TABLET DAILY Class: Fax Pt states she will make an appt when she returns home in July. Ok to refill 1 month? [facility] in [place]. Please route back to me if script [...] a appointment when she returns home from [facility] in july. She uses the [facility] pharmacy. Patient can be reached at [phone]. Last office visit:03/11/2009 Last refill:09/09/2009. Dagmar Godfrey Farmworker Field Crop documented in this encounter Plan of Treatment Not on filedocumented as of this encounter Visit Diagnoses Diagnosis IRREGULAR MENSTRUATION - Primary Irregular menstrual cycle documented in this encounter Care Teams Wine Sales Representative Relationship Specialty Start Date End Date Olivia Moreno MD PCP - General 09/19/03 08/04/[address] [address] documented as of this encounter
--- OUTSIDE RECORDS SUMMARY | 2022-02-16 13:04 | XMS_ITS | Encounter Summary ---
:1990 Author Organization [place] Address [address] [place] [address]. [place] [address] Care Team Providers Name Role Phone Chela Servin PA-C Primary Care Provider Encounter Details Date Type Department Care Team Description 07/18/2011 Telephone [facility] Chela Servin PA-C [address] [place] [phone] [place] [address] (Wo rk) Social History Tobacco [...] CDT Informed of prescription approval. Dagmar Godfrey Risk Control Director Telephone Encounter - Chela Servin PA-C - 07/18/2011 12:04 PM CDT Approved for 2 months and will need to follow-up for pap in August documented in this encounter Plan of Treatment Not on filedocumented as of this encounter Visit Diagnoses Diagnosis IRREGULAR MENSTRUATION - Primary Irregular menstrual cycle documented in this encounter Care Teams Auto Rental Clerk Relationship Specialty Start Date End Date Chela Servin PA-C PCP - General Family Practice 08/05/10 03/23/13 [address] [place] [place] [address] documented as of this encounter
--- OUTSIDE RECORDS SUMMARY | 2022-02-16 13:04 | XMS_ITS | Encounter Summary ---
:1990 Author Organization [place] Address [address] [place] [address] Care Team Providers Name Role Phone Chela Servin PA-C Primary Care Provider Reason for Visit Reason Comments Shortness of Breath pneumothorax x2mos increased SOB cough Encounter Details Date Type Department Care Team Description 12/18/2010 [facility] letty Gardner MD Pneumothorax Emergency Dept [facility] [address] [place] [address] [place] [address] (Wo rk) Social History Tobacco Use Types [...] breath -- Weakness, dizziness or fainting ?? [phone] [facility], [address] [place] [address]. All rights reserved. This information is not [...] History Chief Complaint: Shortness of Breath HPI Natayl Simon is a 20 year old female [...] She came to see the doctor at [facility] six days ago for a cold and [...] patient and consent for procedure wasobtained. Timeout: [facility] protocol was followed. TIME OUT conducted just [...] obtained to the pleural cavity. A 16 zambian chest tube was placed and connected to [...] and alternatives were discussed with Patient. Timeout: [facility] protocol was followed. TIME OUT conducted prior [...] small left pleural effusion. Leandro Bernard MD [facility] DIAGNOSTIC IMAGING ORDER BITA Chest XR, PA [...] hydropneumothorax. Dr. Bernard aware. Leandro Bernard MD [facility] DIAGNOSTIC IMAGING ORDER BITA documented in this [...] 12/18/10 at 1607, For 1 dose, CATHERINE UMRPHY: Raman et Guille documented in this encounter Care Teams Sheet Turner Relationship Specialty Start Date End Date Fidel-Chela Engel PA-C PCP - General Family Practice 08/05/10 03/23/13 [address] [place] [address] documented as of this encounter
--- OUTSIDE RECORDS SUMMARY | 2022-02-16 13:04 | XMS_ITS | Encounter Summary ---
:1990 Author Organization [place] Address [address] [place] [address] Care Team Providers Name Role Phone Olivia Moreno MD Primary Care Provider Reason for Visit Reason Onset Date Comments Medication Request 08/31/2008 Tamiflu Encounter Details Date Type Department Care Team Description 08/31/2008 [facility] Olivia Moreno MD Medication Request Clinic [facility] (Tamiflu) [address] [address] [place] [address] (Wo rk) Social History Tobacco [...] on filedocumented in this encounter Care Teams Lab Rep Relationship Specialty Start Date End Date Olivia Moreno MD PCP - General 09/19/03 08/04/[address] [address] documented as of this encounter
--- OUTSIDE RECORDS SUMMARY | 2022-02-16 13:04 | XMS_ITS | Encounter Summary ---
:1990 Author Organization [place] Address [address] [place] [address] Care Team Providers Name Role Phone Olivia Moreno MD Primary Care Provider Reason for Visit Reason Onset Date Comments Medication Request 09/09/2009 Encounter Details Date Type Department Care Team Description 09/09/[address] [facility] Noah Moreno MD Medication Request [address] [address] [place] [address] [phone] (Wo rk) Social History Tobacco Use Types [...] AM ------ Message from: LEATHA MARK Created: [facility] Sep 07, 2009 9:45 AM Regarding: Rx change/Chela Contact: Nataly crawley her control changed to Nate. She was on ortho tri-cyclen years ago. Please sendto [employer] in [place]. Nataly can be reached at [phone]. DL 6-26@9:48am documented in this encounter Plan of Treatment Not on filedocumented as of this encounter Visit Diagnoses Diagnosis OCP (oral contraceptive pills) initiatio n - Primary General counseling for prescription of o ral contraceptives documented in this encounter Care Teams Therapeutic Case Manager Relationship Specialty Start Date End Date Olivia Moreno MD PCP - General 09/19/03 08/04/[address] [address] documented as of this encounter
--- OUTSIDE RECORDS SUMMARY | 2022-02-16 13:04 | XMS_ITS | Encounter Summary ---
:1990 Author Organization [place] Address [address] [place] [address]. [place] [address] Care Team Providers Name Role Phone Chela Servin PA-C Primary Care Provider Reason for Visit Reason Comments Refill Request control medication Encounter Details Date Type Department Care Team Description 08/19/2010 Office Visit [facility] Malathi, Screen ing for unspecified disorder of blood and blood-forming organs; Clinic [place] Chela Contreras PA-C Lipid screening; [address] Screening for diabetes mellitus; [place], [place] IRREGULAR MEN STRUATION; [phone] Routine general medical examination at a health care facility; [phone] Screening for t hyroid disorder; (Work) Vaginitis [...] Preventive Services Task Force (USPSTF) or the [place] [employer] (AAFP). They are [...] ?? Dental health: Visit your dentist regularly. [place] your teeth with fluoride toothpaste daily. Also [...] No All Histories reviewed and updated in [facility]. ROS: C: NEGATIVE for fever, chills, change [...] Signature T4 Free 1.00 0.70 - 1.85 [facility] CL[facility] LAB Specimen Anatomical Collection Method Collection Time Receive d Time (Source) Location / / Volume Laterality Blood specimen 08/19/2010 8:49 AM 011 8:50 (specimen) CDT AM CDT Chela Servin PA-C LAB - BLOOD ORDERABLES Performing Organization Address City/[facility]/ZIP Code Phon e Number [facility] [address] [place] [address] [facility] CL[facility] LAB TSH (08/19/2010 8:49 AM CDT) athologist Signature TSH 1.40 0.4 - 5.0 [place] [facility] m[facility]/L CLIN[facility] LAB Specimen Anatomical Collection Method Collection Time Receive d Time (Source) Location / / Volume Laterality Blood specimen 08/19/2010 8:49 AM 011 8:50 (specimen) CDT AM CDT Chela Servin PA-C LAB - BLOOD ORDERABLES Performing Organization Address City/[facility]/ZIP Code Phon e Number [facility] [address] [place] [address] [facility] LAB Glucose (08/19/2010 8:49 AM CDT) athologist Signature Glucose 83 60 - 99 [facility] mg/dL CLINIC LAB Specimen Anatomical Collection Method Collection Time Receive d Time (Source) Location / / Volume Laterality Blood specimen 08/19/2010 8:49 AM 011 8:50 (specimen) CDT AM CDT Chela Servin PA-C LAB - BLOOD ORDERABLES Performing Organization Address City/[facility]/ZIP Code Phon e Number [address] [address] [phone] [facility] LAB Lipid panel reflex to direct LDL (08/19/2010 8:49 AM CDT) athologist Signature Cholesterol 148 0 - 200 [facility] mg/dL CLINIC LAB Comment: LDL Cholesterol is the primary guide to therapy. The NCEP recommends further evaluation of: patients with cholesterol greater than 200 mg/dL if additional risk facto rs are present, cholesterol greater than 240 mg/dL, triglycerides greater than 1 50 mg/dL, or HDL less than 40 mg/dL. Triglycerides 73 0 - 150 mg/dL [facility] LAB HDL Cholesterol 61 50 - 110 mg/dL [facility] LAB LDL Cholesterol Calculated 73 0 - 129 mg/dL [facility] LAB Comment: LDL Cholesterol is the primary guide to therapy: LDL-cholesterol goal in high risk patients is <100 mg/dL and in very high risk patients is <70 mg/dL. VLDL-Cholesterol 15 0 - 30 mg/dL [facility] LAB Cholesterol/HDL Ratio 2.4 0.0 - 5.0 [facility] LAB Specimen Anatomical Collection Method Collection Time Receive d Time (Source) Location / / Volume Laterality Blood specimen 08/19/2010 8:49 AM 011 8:50 (specimen) CDT AM CDT Chela Servin PA-C LAB - BLOOD ORDERABLES Performing Organization Address City/[facility]/ZIP Code Phon e Number [facility] [address] [place] [phone] [facility] LAB CBC with platelets (08/19/2010 8:49 AM CDT) P athologist Signature WBC 4.9 4.0 - 11.0 [place] 10e9/L [facility] LAB RBC Count 4.70 3.8 - 5.2 [place] 10e12/L [facility] LAB Hemoglobin 14.0 11.7 - [place] 15.7 g/dL [facility] LAB Hematocrit 41.1 35.0 - [place] 47.0 % [facility] LAB MCV 87 78 - 100 [place] fl [facility] LAB MCH 29.8 26.5 - [place] 33.0 pg [facility] LAB MCHC 34.1 31.5 - [place] 36.5 g/dL [facility] RDW 13.2 10.0 - [place] 15.0 % [facility] LAB Platelet Count 150 150 - 450 [place] 10e9/L [facility] LAB Specimen Anatomical Collection Method Collection Time Receive d Time (Source) Location / / Volume Laterality Blood specimen 08/19/2010 8:49 AM 011 8:50 (specimen) CDT AM CDT Chela Servin PA-C LAB - BLOOD ORDERABLES Performing Organization Address City/[facility]/ZIP Code Phon e Number [address] [address] [facility] LAB Wet prep (08/19/2010 8:43 AM CDT) Patholo gist Method Time Signature Specimen Vagina [facility] Description [facility] LAB Wet Prep No Trichomonas seen CORRECTE D ON 08/19 AT 0910: PREVIOUSLY REPORTED Clue cells [facility] seen [place] No clue cells seen CORRECTED ON 08/19 AT 0910: PREVIOUSLY REPORTED Yeast seen CLINIC LAB No yeast seen Micro Report FINAL [place] Status 08/19/2010 [facility] LAB Specimen Anatomical Collection Method Collection Time Receive d Time (Source) Location / / Volume Laterality 08/19/2010 8:43 AM 1 8:44 CDT AM CDT Chela Servin PA-C LAB - MICRO GENERAL OR DERABLES Performing Organization Address City/State/ZIP Code Phon e Number [facility] [address] [place] [address] [facility] CL[facility] LAB documented in this encounter Visit Diagnoses Diagnosis Screening for unspecified disorder of bl ood and blood-forming organs Lipid screening Screening for lipoid disorders Screening for diabetes mellitus IRREGULAR MENSTRUATION Irregular menstrual cycle Routine general medical examination at a health care facility Screening for thyroid disorder Vaginitis Vaginitis and vulvovaginitis, unspecifie d documented in this encounter Care Teams [place] Hand Relationship Specialty Start Date End Date Chela Servin PA-C PCP - General Family Practice 08/05/10 03/23/13 [address] [place] [address] documented as of this encounter
--- OUTSIDE RECORDS SUMMARY | 2022-02-16 13:04 | XMS_ITS | Encounter Summary ---
:1990 Author Organization [place] Address [address] [place] [address] Care Team Providers Name Role Phone Chela Servin PA-C Primary Care Provider Reason for Visit Reason Onset Date Comments Refill Request 08/05/2010 mattie Encounter Details Date Type Department Care Team Description 08/05/2010 Refill [facility] Olivia Moreno MD Refill Request (mattie) [address] [address] [place] [address] [phone] (Wo rk) Social History Tobacco Use Types [...] on filedocumented in this encounter Care Teams Shake Feeder Relationship Specialty Start Date End Date Chela Servin PA-C PCP - General Family Practice 08/05/10 03/23/13 [address] [place] [address] documented as of this encounter
--- OUTSIDE RECORDS SUMMARY | 2022-02-16 13:04 | XMS_ITS | Encounter Summary ---
:1990 Author Organization [place] Address [address] [place] [address]. [place] [address] Care Team Providers Name Role Phone Chela Servin PA-C Primary Care Provider [phone] Reason for Visit Reason Onset Date Comments Refill Request 07/21/2011 [facility] Encounter Details Date Type Department Care Team Description 07/21/2011 Refjohn [facility] Malathi Refill Request [place] Chela Contreras PA-C (LESSINA-28) [address] [phone] [place] [address] (Wo rk) Social History Tobacco [...] cycle documented in this encounter Care Teams Plastic Tile Setter Relationship Specialty Start Date End Date Chela Servin PA-C PCP - General Family Practice 08/05/10 03/23/13 [address] [place] [address] documented as of this encounter
--- OUTSIDE RECORDS SUMMARY | 2022-02-16 13:04 | XMS_ITS | Encounter Summary ---
:1990 Author Organization [place] Address [address] [place] [address]. [place] [address] Care Team Providers Name Role Phone Chela Servin PA-C Primary Care Provider Reason for Visit Reason Onset Date Comments ER F/U 12/19/2010 [facility] ED on 12/18/10 Encounter Details Date Type Department Care Team Description 12/19/2010 Telephone [facility] DOMONIQUE Servin F/U ([facility] ED on Clinic [place] Chela Contreras PA-C 12/18/10) [address] [facility] [address] [place] [address] Social History Tobacco Use Types [...] CST Pt had surgery Kym Sanchez CMA OR MARKETING ENGINEER Telephone Encounter - Alvina Moreira - 12/19/2010 [...] on filedocumented in this encounter Care Teams Neon Light Installer Relationship Specialty Start Date End Date Chela Servin PA-C PCP - General Family Practice 08/05/10 03/23/13 [address] [place] [address] documented as of this encounter
--- OUTSIDE RECORDS SUMMARY | 2022-02-16 13:04 | XMS_ITS | Encounter Summary ---
:1990 Author Organization [place] Address [address] [place] [address] Care Team Providers Name Role Phone Chela Servin PA-C Primary Care Provider [phone] Encounter Details Date Type Department Care Team Description 12/20/2010 Anesthesia Event [facility] Steve [place] PeriOP Ser vices MD [address] [facility], [address] [place] [address] [phone] Anesthesia Record Procedure Summary Procedure Name Responsible [...] benefits and alternatives discussed with: patient or medical detail representative. . documented in this encounter Miscellaneous [...] Pre-procedure documented in this encounter Care Teams Data Security Consultant Relationship Specialty Start Date End Date Chela Servin PA-C PCP - General Family Practice 08/05/10 03/23/13 [address] [place] [address] documented as of this encounter
--- OUTSIDE RECORDS SUMMARY | 2022-02-16 13:04 | XMS_ITS | Encounter Summary ---
:1990 Author Organization [place] Address [address] [place] [address]. [place] [address] Care Team Providers Name Role Phone Chela Servin PA-C Primary Care Provider Reason for Visit Auth/Cert - Closed Specialty Diagnoses / Procedures Referred By Contact Refer red To Contact Surgery Diagnoses Left Pneumothorax Sh Periop Services Procedures THORACOSCOPIC WEDGE RESECTION LUNG [address] [place] [phone] Phone: Referral ID Status Reason Start Date Expiration Date Visits Requ ested Visits Authorized [id number] Closed 12/19/2010 06/17/2011 1 1 Encounter Details Date Type Department Care Team Description 12/20/2010 Surgery [facility] Demetris Raymond Left Vid eo Assisted [place] PeriOP MD [place] Thoracoscopy, Apical Services [place] [facility] Blebectomy [address], [address] [place] [address] [place] [id number] (Wo rk) Surgery Details Date/Time Status Location [...] Blebectomy Surgeon Surgeon Role Service Panel Demetris Ryamond MD Primary General 1 documented in this [...] left video-assisted thoracoscopy with apical blebectomy at [facility]. HOSPITAL COURSE: John George is a [...] GUERRIER MT: as Name: JOHN GEORGE Account: [id number] : 1990 Admit Date: [id number] Discharge Date: 12/23/2010 Document: [id number] documented in this encounter Discharge Instructions Discharge [...] Demetris Raymond MD - 02/06/2011 2:23 PM ACCOUNT SERVICES MANAGER UNT SERVICES MANAGER Constance Duval PA-C - 12/23/2010 8:59 AM [...] Small apical ptx Satisfactory DEMETRIS RAYMOND MD [facility] ONCOLOGY THORACIC SURGERY CELL: OFFICE: documented [...] Demetris Raymond MD - 02/06/2011 2:19 PM ACCOUNT SERVICES MANAGER UNT SERVICES MANAGER documented in this encounter Miscellaneous Notes Plan [...] Individualization/Patient-Specific Goal (Adult,OB,Behavioral The patient and/or their retail wireless sales representative will achieve their patient-specific goals [...] Individualization/Patient-Specific Goal (Adult,OB,Behavioral The patient and/or their retail wireless sales representative will achieve their patient-specific goals [...] Individualization/Patient-Specific Goal (Adult,OB,Behavioral The patient and/or their retail wireless sales representative will achieve their patient-specific goals [...] Individualization/Patient-Specific Goal (Adult,OB,Behavioral The patient and/or their retail wireless sales representative will achieve their patient-specific goals related to the plan of care. The patient-specific goals include: RN: 12/20/10 Left video assisted thorascopy with apical blebectomy Outcome: Improving Patient tolerated diet, ambulates to bathroom well and sat in chair x2 with S.B.A. Provider Notification - aSngeetha Martinez RN - 12/20/2010 6:12 PM CDT [...] examination was normal. Using multiple applications of Sligo 45 mm stapling device, a blebectomywas performed. [...] EM#[id number] Name: JOHN GEORGE MRN: [id number] Account: [id number] : 1990 Procedure Date: 12/20/2010 Document: [id number] Brief Op Note - Demetris Raymond MD - 12/20/2010 9:45 AM CDT [facility] Thoracic Surgery Brief Operative Note Pre-operative [...] apical pneumothor ax unchanged. Demetris Raymond MD [facility] DIAGNOSTIC IMAGING ORDER BITA X-ray Chest 1 [...] tiny. 2. Clear lungs. Demetris Raymond MD [facility] DIAGNOSTIC IMAGING ORDER BITA X-ray Chest 1 [...] left apical pneumothor ax. Demetris Raymond MD [facility] DIAGNOSTIC IMAGING ORDER BITA X-ray Chest 1 [...] emphysema on the left. Demetris Raymond MD [facility] DIAGNOSTIC IMAGING ORDER BITA Surgical pathology exam (12/20/2010 9:27 AM CDT) Component Value Ref Test Analysis Performed At [facility] Range Method Time Signature Copath Report Patient Name: JOHN GEORGE MR#: [id number] Specimen #: [id number] Collected: 12/20/2010 Received: 12/20/2010 Reported: 12/23/2010 14:50 [...] throughout. ??N o lesions are identified grossly. ??Cartridge Loader sections are submitted. ??SI ??TRS/tw Cassettes 1-2. ??Bisected bleb. 3-4. ??Uninvolved lung parenchyma. MICROSCOPIC: A formal microscopic examination is performed. BCT/ls 12/23/2010 TESTING LAB LOCATION: [address] ??[address] COLLECTION SITE: Client: [facility] Location: [facility]3 (S) Specimen Anatomical Collection Method Collection Time Receive d Time (Source) Location / / Volume Laterality 12/20/2010 9:27 AM 1 CDT 12:13 PM CDT Demetris Raymond MD LAB - BEAKER AP Performing Organization Address City/[facility] Phon e Number COPATH Hemoglobin (12/20/2010 8:12 AM CDT) P athologist Signature Hemoglobin 12.3 11.7 - 15.7 [place] g/dL [facility] Specimen Anatomical Collection Method Collection Time Receive d Time (Source) Location / / Volume Laterality Blood specimen 12/20/2010 8:12 AM 011 8:15 (specimen) CDT AM CDT Demetris Raymond MD LAB - BLOOD ORDERABLES Performing Organization Address City/[facility]/ZIP Code Phon e Number [place] [address] [place] [address] [facility] documented in this encounter Visit Diagnoses [...] - Reason: Patient/family refused)1842 (Given - Provider: Mlau Casillas)2100 (Not Given - Provider: Sangeetha Martinez [...] Glory Arreola, MALLORY)2115 (Not Given - Provider: aSngeetha Martinez RN - Reason: Loss of IV [...] D) 1309 (Given - Provider: Lizbet Marinelli, MALLORY) 0.2-0.4 mg, Intravenous, EVERY 30 MIN WY N, Starting 12/20/10 at 1221, Until Tu12/23/10 at 1526, severe pain, or if patient unable to take PO, Post- procedure, Hold while on REMITTANCE CLERK. ibuprofen (ADVIL,MOTRIN) tablet 600 mg 1842 (Given - Provide r: Malu Casillas) 0125 (Given - Provider: Anna Lane RN)1028 (Given - Provider: Glory Arreola RN)1645 (Given - Provider: Sangeetha Martinez, MALLORY)2253 (Given - Provider: Sangeetha Martinez RN) 0459 (Given - Provider: Rosario martines, MALLORY) [...] Starting 12/20/10 at 1221, Hold while on REMITTANCE CLERK., Post-procedure documented in this encounter Care Teams Instructor Creeler Relationship Specialty Start Date End Date Chela Servin PA-C PCP - General Family Practice 08/05/10 03/23/13 [address] [place] [address] documented as of this encounter
--- OUTSIDE RECORDS SUMMARY | 2022-02-16 13:04 | XMS_ITS | Encounter Summary ---
:1990 Author Organization [place] Address [address] [place] [address]. [place] [address] Care Team Providers Name Role Phone Olivia Moreno MD Primary Care Provider Encounter Details Date Type Department Care Team Description 04/20/2008 Therapy Visit [place] for Lavonne Mcpherson PTA Lumbar Radiculopathy Athletic Medicine - [address] (Prima ry Dx) [facility] [place] [address] [facility] [phone] [place], [place] (Work) [address] Social History Tobacco Use [...] Medicaid as primary or secondary insurance? NO URE WAXER documented in this encounter Plan of Treatment Not on filedocumented as of this encounter Procedures Procedure Name Priority Date/Time Associated Diagnosis Comme nts ZZC MANUAL THER Routine 04/20/2008 11:51 AM DENTURE WAXER Lumbar Radicul opathy TECH,1+REGIONS,EA 15 MIN documented in this encounter Visit Diagnoses Diagnosis Lumbar radiculopathy - Primary Thoracic or lumbosacral neuritis or radi culitis, unspecified documented in this encounter Care Teams Plastics Seasoner Operator Relationship Specialty Start Date End Date Olivia Moreno MD PCP - General 09/19/03 08/04/[address] [address] documented as of this encounter
--- OUTSIDE RECORDS SUMMARY | 2022-02-16 13:04 | XMS_ITS | Encounter Summary ---
:1990 Author Organization [place] Address [address] [place] [address] Care Team Providers Name Role Phone Chela Servin PA-C Primary Care Provider Reason for Visit Reason Comments Shortness of Breath and left side discomfort x2 wks Encounter Details Date Type Department Care Team Description 11/05/2011 Office Visit [facility] Jayson Lombardo SOB ([facility] MD Juwan breath) (Primary Dx) [address] [place] [address] Social History Tobacco Use Types [...] 11/05/2011 11:30 AM CDT >> MASON CHANCE [facility] Nov 05, 2011 11:40 AM Patient presents [...] breath documented in this encounter Care Teams Equity Analyst Relationship Specialty Start Date End Date Aaseby-Chela Engel PA-C PCP - General Family Practice 08/05/10 03/23/13 [address] [place] [address] documented as of this encounter
--- OUTSIDE RECORDS SUMMARY | 2022-02-16 13:04 | XMS_ITS | Encounter Summary ---
:1990 Author Organization [place] Address [address] [place] [address]. [place] [address] Care Team Providers Name Role Phone Chela Servin PA-C Primary Care Provider [phone] Reason for Visit Reason Comments Refill Request BC Encounter Details Date Type Department Care Team Description 09/10/2011 Office Visit [facility] SELINA Servin [facility] [place] Chela Contreras PA-C (Primary Dx) [address] [facility] [address] [place] [address] [phone] Social History Tobacco Use Types Packs/Day Years [...] 09/10/2011 9:45 AM CDT >> SANDRA BONILLA [facility] Sep 10, 2011 9:57 AM Patient presents [...] cycle documented in this encounter Care Teams Transmission Worker Relationship Specialty Start Date End Date Chela Servin PA-C PCP - General Family Practice 08/05/10 03/23/13 [address] [place] [address] documented as of this encounter
--- OUTSIDE RECORDS SUMMARY | 2022-02-16 13:04 | XMS_ITS | Encounter Summary ---
:1990 Author Organization [place] Address [address] [place] [address]. [place] [address] Care Team Providers Name Role Phone Chela Servin PA-C Primary Care Provider Reason for Referral Office Workup No CT/MRI - Closed Specialty Diagnoses / Procedures Referred By Contact Refer red To Contact Diagnoses Spontaneous pneumothorax Jayson Lombardo MD [facility] [address] [address] [address] [place] [address] Phone: Fax: Referral ID Status Reason Start Date Expiration Date Visits Requ ested Visits Authorized [id number] Closed 12/12/2010 06/10/2011 1 1 Reason for Visit Reason Comments RECHECK finished antibiotic about 10 days ago and still coughing Encounter Details Date Type Department Care Team Description [facility]o [facility] (Primary Dx); Clinic Roque Echeverria MD Cough [address] [place] [address] Social History Tobacco Use Types [...] rhinorrhea then had cough. Was seen at [facility] - did not have [...] completed using cuff size: regular Hilton Awan CERTIFIED RESPIRATORY THERAPIST documented in this encounter Plan of Treatment [...] Cough documented in this encounter Care Teams Bushing Press Operator Relationship Specialty Start Date End Date Fidel-Chela Engel PA-C PCP - General Family Practice 08/05/10 03/23/13 [address] [place] [address] documented as of this encounter
--- OUTSIDE RECORDS SUMMARY | 2022-02-16 13:04 | XMS_ITS | Encounter Summary ---
:1990 Author Organization [place] Address [address] [place] [address]. [place] [address] Care Team Providers Name Role Phone Chela Servin PA-C Primary Care Provider [phone] Reason for Visit Reason Onset Date Comments Refill Request 08/10/2012 Encounter Details Date Type Department Care Team Description 08/10/2012 Refill [facility] Chela Servin Refill Request [place] RENÉ Contreras [address] [facility] [address] [place] [phone] [place] [address] (Wo rk) Social History Tobacco [...] cycle documented in this encounter Care Teams Foreign Student Adviser Teacher Relationship Specialty Start Date End Date Chela Servin PA-C PCP - General Family Practice 08/05/10 03/23/13 [address] [place] [address] documented as of this encounter
--- OUTSIDE RECORDS SUMMARY | 2022-02-16 13:04 | XMS_ITS | Encounter Summary ---
:1990 Author Organization [place] Address [address] [facility] 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 Exam last pap was 02/19, last pap was normal Blood Draw pt IS fasting Encounter Details Date Type Department Care Team Description 03/11/2009 Office Visit [facility] Micheal Servin Physical Examination (Primary Dx); [facility] [place] Chela Contreras PA-C Irregular Menstrual Cycle; [address] Screening for Unspecified Disorder of Bl ood and Blood-Forming Organs; [place], [place] Screening for Thyroid Disorder; [phone] Screening for Diabetes Mellitus; [phone] Routine General Medical Examination at a Health [...] Comments Blood Pressure 106/66 03/11/2009 9:05 AM BUTTING SAW OPERATOR Pulse 62 03/11/2009 9:05 AM BUTTING SAW OPERATOR Temperature 36.4 ??C (97.6 ??F) 03/11/2009 9:05 AM BUTTING SAW OPERATOR Respiratory Rate - - Oxygen Saturation 98% 03/11/2009 9:05 AM BUTTING SAW OPERATOR Inhaled Oxygen Concentration - - Weight 47.6 kg (105 lb) 03/11/2009 9:05 AM BUTTING SAW OPERATOR Height 171.5 cm (5' 7.5) 03/11/2009 9:05 AM BUTTING SAW OPERATOR Body Mass Index 16.2 03/11/2009 9:05 AM BUTTING SAW OPERATOR documented in this encounter Progress Notes Chela Servin - 03/11/2009 9:36 AM CST SUBJECTIVE: CC: Nataly Simon is a 18 year old female who presents for routine health maintenance Patient is not sexually active, never been. Does not want pap if she doesn't have to have it. HPI: 1) Hurt her back on Dec 2006, moving weights. Vado like she pulled herself in left lower back. Vado back spasm. This has been a recurring [...] ??? 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 Lives with parents Family History Problem [...] Due ??? Pap q 1 yr diagnostic [place] [employer] message 2002 ??? Tetanus immunization ( [facility] [...] if any problems or failureto improve. 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 BP completed using cuff size: regular Eduar Jeff COMMERCIAL CRABBER documented in this encounter Plan of Treatment Pending Results Name Type Priority Associated Diagnoses Date/Ti me CONSULT [facility] ORTHO SCREEN PRINTING PRESS OPERATOR Referral Routine Chronic Low Ba ck Pain 03/14/2009 documented as of this encounter Procedures Procedure Name Priority Date/Time Associated Diagnosis Comme nts ORTHOPEDIC SCREEN PRINTING PRESS OPERATOR Routine 03/14/2009 Chronic Low Back REFERRAL Pain CL AFF CBC WITH Routine 03/11/2009 9:53 AM Screening for Resul ts for this PLATELETS BUTTING SAW OPERATOR Unspecified Disorder procedu re are in of Blood and the results Blood-Forming Organs section . HCL TSH W/FREE T4 Routine 03/11/2009 9:53 AM Screening for Res ults for this REFLEX BUTTING SAW OPERATOR Thyroid Disorder procedure a re in the results section. HCL GLUCOSE Routine 03/11/2009 9:53 AM Screening for Results for this BUTTING SAW OPERATOR Diabetes Mellitus procedure are in the results section. documented in this encounter Results GLUCOSE (03/11/2009 9:53 AM BUTTING SAW OPERATOR) athologist Signature Glucose 86 60 - 99 [facility] mg/dL CLINIC LAB Specimen Anatomical Collection Method Collection Time Receive d Time (Source) Location / / Volume Laterality 03/11/2009 9:53 AM 9 9:54 BUTTING SAW OPERATOR AM BUTTING SAW OPERATOR Chela Servin PA-C LABORATORY Performing Organization Address City/State/ZIP Code Phon e Number [facility] [address] [place] [address] [facility] TSH W/FREE T4 REFLEX (03/11/2009 9:53 AM BUTTING SAW OPERATOR) athologist Signature TSH 2.48 0.4 - 5.0 [place] mU/L CLINIC LAB Specimen Anatomical Collection Method Collection Time Receive d Time (Source) Location / / Volume Laterality 03/11/2009 9:53 AM 9 9:54 BUTTING SAW OPERATOR AM BUTTING SAW OPERATOR Chela Servin PA-C LABORATORY Performing Organization Address City/State/ZIP Code Phon e Number [facility] [address] [place] [address] [facility] LAB CBC WITH PLATELETS (03/11/2009 9:53 AM BUTTING SAW OPERATOR) P athologist Signature WBC 5.5 4.0 - 11.0 [place] 10e9/L [facility] RBC Count 4.97 3.8 - 5.2 [place] 10e12/L [facility] Hemoglobin 14.9 11.7 - [facility] 15.7 g/dL [facility] Hematocrit 42.5 35.0 - [facility] 47.0 % [facility] MCV 86 78 - 100 [facility] MCH 30.0 26.5 - [place] 33.0 pg [facility] MCHC 35.1 31.5 - [facility] 36.5 g/dL [facility] RDW 14.3 10.0 - [facility] 15.0 % [facility] Platelet Count 183 150 - 450 [place] 10e9/L [facility] LAB Specimen Anatomical Collection Method Collection Time Receive d Time (Source) Location / / Volume Laterality 03/11/2009 9:53 AM 9 9:54 BUTTING SAW OPERATOR AM BUTTING SAW OPERATOR Chela Servin PA-C LABORATORY Performing Organization Address City/State/ZIP Code Phon e Number [facility] [address] [place] [address] [facility] documented in this encounter Visit Diagnoses Diagnosis Routine physical examination - Primary Routine general medical examination at a health care facility Irregular menstrual cycle Screening for unspecified disorder of bl ood and blood-forming organs Screening for thyroid disorder Screening for diabetes mellitus Routine general medical examination at a health care facility Chronic low back pain Lumbago documented in this encounter Care Teams Insulation Engineman Relationship Specialty Start Date End Date Olivia Moreno MD PCP - General 09/19/03 08/04/[address] [address] documented as of this encounter
--- OUTSIDE RECORDS SUMMARY | 2022-02-16 13:04 | XMS_ITS | Encounter Summary ---
:1990 Author Organization [place] Address [address] [place] [address]. [place] [address] Care Team Providers Name Role Phone Chela Servin PA-C Primary Care Provider [phone] Reason for Visit Reason Onset Date Comments Other 12/10/2010 sick/ dx with pneumo waqar at school Encounter Details Date Type Department Care Team Description 12/10/2010 Telephone [facility] Any Servin (sick/ dx with [facility] [place] Chela Contreras PA-C pneumonia at school) [address] [facility] [address] [place] [address] Social History Tobacco Use Types [...] on filedocumented in this encounter Care Teams Security Services Manager Relationship Specialty Start Date End Date Chela Servin PA-C PCP - General Family Practice 08/05/10 03/23/13 [address] [place] [address] documented as of this encounter
--- OUTSIDE RECORDS SUMMARY | 2022-02-16 13:05 | XMS_ITS | Encounter Summary ---
:1990 Author Organization [place] Address [address] [place] [address] Care Team Providers Name Role Phone Olivia Moreno MD Primary Care Provider Encounter Details Date Type Department Care Team Description 03/26/2008 Therapy Visit [facility] Andrew Modi Lumbar Radiculopathy [address] [address] PT (Primary Dx) [place] [address] [place] [phone] [place] [address] Social History Tobacco Use Types [...] Medicaid as primary or secondary insurance? NO NMAN documented in this encounter Plan of Treatment Not on filedocumented as of this encounter Procedures Procedure Name Priority Date/Time Associated Diagnosis Comme nts [facility] MANUAL THER Routine 03/26/2008 4:44 PM CHAINMAN Lumbar Radiculo mercedes TECH,1+REGIONS,EA 15 MIN ZZC THERAPEUTIC Routine 03/26/2008 4:44 PM CHAINMAN Lumbar Radiculo mercedes EXERCISES documented in this encounter Visit Diagnoses Diagnosis Lumbar radiculopathy - Primary Thoracic or lumbosacral neuritis or radi culitis, unspecified documented in this encounter Care Teams Software Integration Developer Relationship Specialty Start Date End Date Olivia Moreno MD PCP - General 09/19/03 08/04/[address] [address] documented as of this encounter
--- OUTSIDE RECORDS SUMMARY | 2022-02-16 13:05 | XMS_ITS | Encounter Summary ---
:1990 Author Organization [place] Address [address] [place] [address]. [place] [address] Care Team Providers Name Role Phone Olivia Moreno MD Primary Care Provider Encounter Details Date Type Department Care Team Description 04/13/2008 Therapy Visit [place] for Lavonne Mcpherson PTA Lumbar Radiculopathy Athletic Medicine - [address] (Prima ry Dx) [facility] [place] [address] [facility] [phone] [place], [place] (Work) [address] Social History Tobacco Use [...] Medicaid as primary or secondary insurance? NO D ARTILLERY OFFICER documented in this encounter Plan of Treatment Not on filedocumented as of this encounter Procedures Procedure Name Priority Date/Time Associated Diagnosis Comme nts [facility] MANUAL THER Routine 04/13/2008 11:53 AM Lumbar Radiculopat hy TECH,1+REGIONS,EA 15 MIN FIELD ARTILLERY OFFICER ZZC THERAPEUTIC Routine 04/13/2008 11:53 AM Lumbar Radiculopat hy EXERCISES FIELD ARTILLERY OFFICER documented in this encounter Visit Diagnoses Diagnosis Lumbar radiculopathy - Primary Thoracic or lumbosacral neuritis or radi culitis, unspecified documented in this encounter Care Teams Primary Mill Roller Relationship Specialty Start Date End Date Olivia Moreno MD PCP - General 09/19/03 08/04/[address] [address] documented as of this encounter
--- OUTSIDE RECORDS SUMMARY | 2022-02-16 13:05 | XMS_ITS | Encounter Summary ---
:1990 Author Organization [place] Address [address] [place] [address] Care Team Providers Name Role Phone Olivia Moreno MD Primary Care Provider Reason for Visit Reason Comments Mantoux Results Reading mantoux negative Encounter Details Date Type Department Care Team Description 09/21/2003 Allied Health/Nurse [facility] Man toux Results Reading Visit Clinic [place] (mantoux negative) [id number] [place] [phone] Social History Tobacco Use Types Packs/Day Years Used Date Smoking Tobacco: Never Assessed Sex Assigned at Date Recorded Female 05/29/2020 7:33 PM CDT documented as of this encounter Plan of Treatment Not on filedocumented as of this encounter Visit Diagnoses Diagnosis Screening examination for pulmonary tube rculosis - Primary documented in this encounter Care Teams Hand Violin Maker Relationship Specialty Start Date End Date Olivia Moreno MD PCP - General 09/19/03 08/04/[address] [address] documented as of this encounter
--- OUTSIDE RECORDS SUMMARY | 2022-02-16 13:05 | XMS_ITS | Encounter Summary ---
:1989 Author Organization [place] Address [address] [place] [address] Care Team Providers Name Role Phone Olivia Moreno MD Primary Care Provider Encounter Details Date Type Department Care Team Description 04/04/2008 Therapy Visit [facility] Lavonne Mcpherson, LEROY Lumbar Radiculopathy [address] DAYSIP[address]IS DIEGO (Primary Dx) [place] [address] [address] [phone] [place] [address] Social History Tobacco Use Types Packs/Day Years Used Date Smoking Tobacco: Never Alcohol Use Standard Drinks/Week Comments No 0 (1 standard drink = 0.6 oz pure alcoho l) Sex Assigned at Date Recorded Female 05/29/2020 7:33 PM CDT documented as of this encounter Progress Notes Lavonne Mcpherson - 04/04/2008 5:23 PM CST Please refer to the daily flowsheet for treatment today and total treatment time. Does this patient have Medicare or Medicaid as primary or secondary insurance? NO KER OILER documented in this encounter Plan of Treatment Not on filedocumented as of this encounter Procedures Procedure Name Priority Date/Time Associated Diagnosis Comme nts [facility] MANUAL THER Routine 04/04/2008 5:23 PM BREAKER OILER Lumbar Radiculo mercedes TECH,1+REGIONS,EA 15 MIN ZZC THERAPEUTIC Routine 04/04/2008 5:23 PM BREAKER OILER Lumbar Radiculo mercedes EXERCISES documented in this encounter Visit Diagnoses Diagnosis Lumbar radiculopathy - Primary Thoracic or lumbosacral neuritis or radi culitis, unspecified documented in this encounter Care Teams Esthetician Spa Relationship Specialty Start Date End Date Olivia Moreno MD PCP - General 09/19/03 08/04/[address] [address] documented as of this encounter
--- OUTSIDE RECORDS SUMMARY | 2022-02-16 13:05 | XMS_ITS | Encounter Summary ---
:1989 Author Organization [place] Address [address] [place] [address] Care Team Providers Name Role Phone Olivia Moreno MD Primary Care Provider Reason for Visit Reason Comments Abnormal Bleeding Problem irregular periods Encounter Details Date Type Department Care Team Description [facility] [place] XXX NO INFO (Primary Dx) [address] [facility] [place], [place] [phone] [place] [address] Social History Tobacco Use Types Packs/Day Years Used Date Smoking Tobacco: Never Alcohol Use Standard Drinks/Week Comments No 0 (1 standard drink = 0.6 oz pure alcoho l) Sex Assigned at Date Recorded Female 05/29/2020 7:33 PM CDT documented as of this encounter Last Filed Vital Signs Vital Sign Reading Time Taken Comments Blood Pressure 96/60 01/26/2005 2:15 PM CHIEF OF VITAL STATISTICS Pulse - - Temperature 35.7 ??C (96.2 ??F) 01/26/2005 2:15 PM CHIEF OF VITAL STATISTICS Respiratory Rate - - Oxygen Saturation - - Inhaled Oxygen Concentration - - Weight 44.7 kg (98 lb 8 oz) 01/26/2005 2:15 PM CHIEF OF VITAL STATISTICS Height - - Body Mass Index - [...] see if your own cycles will regulate F OF VITAL STATISTICS documented in this encounter Nursing Notes 01/26/2005 [...] BP completed using cuff size: regular Shireen kAins MA documented in this encounter Plan of Treatment Not on filedocumented as of this encounter Visit Diagnoses Diagnosis Irregular menstrual cycle - Primary documented in this encounter Care Teams Matrix Supervisor Relationship Specialty Start Date End Date Olivia Moreno MD PCP - General 09/19/03 08/04/[address] [address] documented as of this encounter
--- OUTSIDE RECORDS SUMMARY | 2022-02-16 13:05 | XMS_ITS | Encounter Summary ---
:1989 Author Organization [place] Address [address] [place] [address] Care Team Providers Name Role Phone Olivia Moreno MD Primary Care Provider Reason for Visit Reason Comments Imm/Inj mantoux Encounter Details Date Type Department Care Team Description 09/19/2003 Allied Health/Nurse [facility] Imm/Inj (mantoux) Visit [address] [address] Social History Tobacco Use Types [...] Primary documented in this encounter Care Teams Centerless Grinder Set Up Operator Relationship Specialty Start Date End Date Olivia Moreno MD PCP - General 09/19/03 08/04/[address] [address] documented as of this encounter
--- OUTSIDE RECORDS SUMMARY | 2022-02-16 13:05 | XMS_ITS | Encounter Summary ---
:1990 Author Organization [place] Address [address] [place] [address] Care Team Providers Name Role Phone Olivia Moreno MD Primary Care Provider Reason for Referral - Closed Specialty Diagnoses / Procedures Referred By Contact Refer red To Contact Diagnoses Temporomandibular joint disorders, unspecified Mira Steel MD XXX NO INFO FOUND XX [place] [address] Referral ID Status Reason Start Date Expiration Date Visits Requ ested Visits Authorized [id number] Closed 12/10/2003 03/14/2011 1 1 Reason for Visit Reason Comments Pain left side jaw pain Encounter Details Date Type Department Care Team Description 12/10/2003 Office Visit [facility] Mira Steel M D TM JOINT DISORDER, Clinic [place] XXX NO INFO FOUND UNSPEC (Primary Dx) [address] [facility] [place] [address] [place] [address] Social History Tobacco Use Types Packs/Day Years [...] Progress Notes 12/10/2003 1:30 PM CDT SUBJECTIVE: transit manager gave her info on TMJ syndrome OBJECTIVE: [...] Primary documented in this encounter Care Teams Insurance Agency Owner Relationship Specialty Start Date End Date Olivia Moreno MD PCP - General 09/19/03 08/04/[address] [address] documented as of this encounter
--- OUTSIDE RECORDS SUMMARY | 2022-02-16 13:05 | XMS_ITS | Encounter Summary ---
:1990 Author Organization [place] Address [address] [place] [address] Care Team Providers Name Role Phone Olivia Moreno MD Primary Care Provider Encounter Details Date Type Department Care Team Description 04/16/2008 Therapy Visit NE[facility] CRUGERLavonne Hodges, LEROY Lumbar Radiculopathy [address] DAYSIPLDENNIS DIEGO (Primary Dx) [place] [address] [address] [phone] [place] [address] Social History Tobacco Use Types [...] Medicaid as primary or secondary insurance? NO INGOT MOLDER documented in this encounter Plan of Treatment Not on filedocumented as of this encounter Procedures Procedure Name Priority Date/Time Associated Diagnosis Comme nts ZZC MANUAL THER Routine 04/16/2008 1:10 PM LEAD INGOT MOLDER Lumbar Radiculo mercedes TECH,1+REGIONS,EA 15 MIN documented in this encounter Visit Diagnoses Diagnosis Lumbar radiculopathy - Primary Thoracic or lumbosacral neuritis or radi culitis, unspecified documented in this encounter Care Teams Ladder Operator Relationship Specialty Start Date End Date Olivia Moreno MD PCP - General 09/19/03 08/04/10 [place] [address] documented as of this encounter
--- OUTSIDE RECORDS SUMMARY | 2022-02-16 13:05 | XMS_ITS | Encounter Summary ---
:1989 Author Organization [place] Address [address] [place] [address] Care Team Providers Name Role Phone Olivia Moreno MD Primary Care Provider Encounter Details Date Type Department Care Team Description 04/11/2008 Therapy Visit [facility] Lavonne Cochran, LEROY Lumbar Radiculopathy [address] JOPLD[address] DIEGO (Primary Dx) [place] [address] [address] [phone] [place] [address] Social History Tobacco Use Types Packs/Day Years Used Date Smoking Tobacco: Never Alcohol Use Standard Drinks/Week Comments No 0 (1 standard drink = 0.6 oz pure alcoho l) Sex Assigned at Date Recorded Female 05/29/2020 7:33 PM CDT documented as of this encounter Progress Notes Alex Stokes - 04/16/2008 1:16 PM IN FLIGHT TECHNICIAN Addended by: ALEX STOEKS on: 04/16/2008 1:16:43 PM Modules accepted: Orders FLIGHT TECHNICIAN Lavonne Mcpherson - 04/11/2008 6:07 PM CST Please refer to the daily flowsheet for treatment today and total treatment time. Does this patient have Medicare or Medicaid as primary or secondary insurance? NO FLIGHT TECHNICIAN documented in this encounter Plan of Treatment Not on filedocumented as of this encounter Procedures Procedure Name Priority Date/Time Associated Diagnosis Comme nts ZC THERAPEUTIC Routine 04/16/2008 1:16 PM IN FLIGHT TECHNICIAN Lumbar Radiculo mercedes [facility] MANUAL THER Routine 04/11/2008 6:08 PM IN FLIGHT TECHNICIAN Lumbar Radiculo mercedes TECH,1+REGIONS,EA 15 MIN documented in this encounter Visit Diagnoses Diagnosis Lumbar radiculopathy - Primary Thoracic or lumbosacral neuritis or radi culitis, unspecified documented in this encounter Care Teams Health Safety Instructor Relationship Specialty Start Date End Date Olivia Moreno MD PCP - General 09/19/03 08/04/[address] [address] documented as of this encounter
--- OUTSIDE RECORDS SUMMARY | 2022-02-16 13:05 | XMS_ITS | Encounter Summary ---
:1989 Author Organization [place] Address [address] [place] [address] Care Team Providers Name Role Phone Olivia Moreno MD Primary Care Provider Reason for Referral NELL Physical Therapy - Closed Specialty Diagnoses / Procedures Referred By Contact Refer red To Contact Diagnoses Back pain Sciatica Chon Tinoco [facility] MD Froilan [address] [place], [place] [address] Referral ID Status Reason Start Date Expiration Date Visits Requ ested Visits Authorized [id number] Closed 03/14/2008 03/14/2011 12 12 R BOILER Reason for Visit Reason Comments Back Pain lower left back pain x ongoi ng since Dec 2006, pt is taking Alleve for the pain Encounter Details Date Type Department Care Team Description 03/14/2008 Office Visit [facility] Cohn Tinoco Back Pain; Roque Mcgovern MD Sciatica [address] [place] [phone] [place] [address] [facility] Nancy [place] N [address] (Wo rk) Social History Tobacco Use Types Packs/Day Years Used Date Smoking Tobacco: Never Alcohol Use Standard Drinks/Week Comments No 0 (1 standard drink = 0.6 oz pure alcoho l) Sex Assigned at Date Recorded Female 05/29/2020 7:33 PM CDT documented as of this encounter Last Filed Vital Signs Vital Sign Reading Time Taken Comments Blood Pressure 108/64 03/14/2008 11:30 AM SUGAR BOILER Pulse 76 03/14/2008 11:30 AM SUGAR BOILER Temperature 36.7 ??C (98.1 ??F) 03/14/2008 11:30 AM SUGAR BOILER Respiratory Rate - - Oxygen Saturation 100% 03/14/2008 11:30 AM SUGAR BOILER Inhaled Oxygen Concentration - - Weight 47.2 kg (104 lb) 03/14/2008 11:30 AM SUGAR BOILER Height 171.5 cm (5' 7.5) 03/14/2008 11:30 AM SUGAR BOILER Body Mass Index 16.05 03/14/2008 11:30 AM SUGAR BOILER Body Mass Index Percentile 0.31 % 03/14/2008 [...] history, are all reviewed and updated in [facility]. Current outpatient prescriptions prior to encounter: ORTHO [...] proceed with MRI and referral to surgery. R BOILER documented in this encounter Nursing Notes 03/14/2008 [...] completed using cuff size: regular Sly Jeff OTR REFRIGERATED CDL TRUCK DRIVER documented in this encounter Plan of Treatment Not on filedocumented as of this encounter Visit Diagnoses Diagnosis Back pain Backache, unspecified Sciatica documented in this encounter Care Teams Dress Operator Relationship Specialty Start Date End Date Olivia Moreno MD PCP - General 09/19/03 08/04/[address] [address] documented as of this encounter
--- OUTSIDE RECORDS SUMMARY | 2022-02-16 13:05 | XMS_ITS | Encounter Summary ---
:1989 Author Organization [facility] Address [address] [place] [address]. [place] [address] Care Team Providers Name Role Phone Olivia Moreno MD Primary Care Provider Encounter Details Date Type Department Care Team Description 03/30/2008 Therapy Visit [facility] RILEY Sapna, Lumbar Radiculopathy [address] CINDA Gee, PT (Primary Dx) [place] [address] [address] [facility] [address] [phone] [place] [address] Social History Tobacco Use Types [...] Medicaid as primary or secondary insurance? NO ATTENDANT documented in this encounter Plan of Treatment Not on filedocumented as of this encounter Procedures Procedure Name Priority Date/Time Associated Diagnosis Comme nts [facility] MANUAL THER Routine 03/30/2008 5:40 PM OVEN ATTENDANT Lumbar Radiculo mercedes TECH,1+REGIONS,EA 15 MIN ZZC THERAPEUTIC Routine 03/30/2008 5:40 PM OVEN ATTENDANT Lumbar Radiculo mercedes EXERCISES documented in this encounter Visit Diagnoses Diagnosis Lumbar radiculopathy - Primary Thoracic or lumbosacral neuritis or radi culitis, unspecified documented in this encounter Care Teams Handle Finisher Relationship Specialty Start Date End Date Olivia Moreno MD PCP - General 09/19/03 08/04/[address] [address] documented as of this encounter
== END 2022-02-16 13:00 | disposition home or self-care (01) ==
LOC: US 13:00
PROVIDERS: Visit Provider Advanced Practice Midwife
DX: O36.5930 Maternal care for other known or suspected poor fetal growth, third trimester, not applicable or unspecified (principal); Z3A.36 36 weeks gestation of pregnancy
CPT/HCPCS: 76816

== ENCOUNTER 2022-02-17 17:38 | Inpatient (IN) | payer BC, SELFPAY ==
[2022-02-17] VITALS (14 sets, daily range): BP systolic 109–130; BP diastolic 60–72; PULSE 65–92; TEMP 36.5–37.1; O2SAT 97; BMI 22.7
--- OUTSIDE RECORDS SUMMARY | 2022-02-17 17:42 | XMS_ITS | Clinical Summary ---
:1989 Author Organization [place] Address [address] [place] [address] Care Team Providers Name Role Phone Unavailable [...] Addre ss Type Group BCBS [place] [id number] 2017-Vera [phone] [address] [address] Indemnity t 0 [place] [address]
--- OUTSIDE RECORDS SUMMARY | 2022-02-17 17:42 | XMS_ITS | Encounter Summary ---
:1989 Author Organization [place] Address [address] [place] [address] Care Team Providers Name Role Phone Jayson [...] with No / Unsure 04/17/2020 12:41 PM PHOTOENGRAVING ETCHER someone who was 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 documented as of this encounter Plan of Treatment Not on filedocumented as of this encounter Visit Diagnoses Not on filedocumented in this encounter Additional Health Concerns Assessment Noted Time PHQ-9 Depression Total Score: 9 09/12/2015 7:13 AM CDT documented as of this encounter Care Teams Clinical Pharmacy Specialist Relationship Specialty Start Date End Date Jayson Lombardo MD PCP - General Family Practice 03/24/13 Jayson Lombardo MD Assigned PCP 08/12/14 04/20/20 documented as of this encounter
--- OUTSIDE RECORDS SUMMARY | 2022-02-17 17:42 | XMS_ITS | Clinical Summary ---
:1989 Author Organization [facility] [place] [address] Care Team Providers Name Role Phone Víctor [...] surgery (cleary resection) without post surgery complications [facility] Supervision of high-risk 08/20/2021 Overview: [facility] CONSULTATION ON 08/22/21 CONSULT VISIT ALERT: Create [...] REFERRING PHYSICIAN/PHONE/LAST UPDATE: Ronny Zapata CNM - [facility] Primary MD approves scheduling of recomm ended [...] lb ng 15 oz) Delivery Location: Hospital ([facility]) Current OB Episode Summary Episode Dates Estimated Date of Pregravid Weight TWG (As of ) Delivery 08/22/2021 - Present 03/07/2022 (02/17/2022) Date GA Fund Present FHR Mvmt BP [...] [facility] the [facility]. The Impression from the report is below. Thank you for the opportunity to partici eileen in the care of this marjorie patient. Taylor Aguilar MD ............. ....... 10/20/2021 2:38 PM Referred By: VÍCTOR ZAPATA [facility] Indications Code 20 weeks gestation of [...] as needed. Medical Decision Making: Low Level [address] Limited Diagnoses including two or more self-limited problems, and history of Limited Data including review of prior ultrasound and review of prior external notes Minimal risk of mortality to the fetus from amniocentesis which was considered and declined. Services Provided: Procedures Code DETAIL ANATOMY 33600.0 TRANSVAGINAL ULTRASOUND 32157.0 08/22/2021 - 11w6d - Rosanne Boucher, RN TELEHEALTH As the RN for this telehealth service, I attest that I introduced myself to the patient, provided my credentials, disclosed my location, and determined that, based on a review of the patients chart and/ or a discussion with members of the [facility] ent's treatment team, a virtual visit [...] ian chart and the [facility] Naviga tor for details. Comments under Consult [...] Type Group BLUE CROSS BLUE CROSS OF [id number] 2017-Present [address] [place] [address] Care Teams Geriatric Aide Relationship Specialty Start Date End Date Víctor Zapata CNM Referring Provider Certified Nurse Wellness Guide 08/14/21 3 [address] [place] [address]
--- OUTSIDE RECORDS SUMMARY | 2022-02-17 17:42 | XMS_ITS | Encounter Summary ---
:1989 Author Organization [place] Address [address] [place] [address]. [place] [address] Care Team Providers Name Role Phone Jayson Lombardo MD Primary Care Provider Unavailable Jayson Lombardo MD Unavailable Unavailable Reason for Visit Rehab Therapy Physical Therapy (Routine) - Closed Specialty Diagnoses / Procedures Referred By Contact Refer red To Contact Physical Therapist / Diagnoses L sciatica/ Self, Irina @ [facility] Chiropractic in [place]/ [facility] Physical Therapy Procedures SPINE FOLLOW UP Sports & Physical Therapy - [facility] [address] [place] [address] Phone: Fax: Referral ID Status Reason Start Date Expiration Date Visits Requ ested Visits Authorized [id number] Closed 04/04/2020 03/14/2021 40 40 Encounter Details Date Type Department Care Team Description 04/17/2020 Therapy Visit [facility] Gurvinder Bauman, PT Chronic left-sided Rehabilitation Services [address] [address] low back pain with [place] [address] left-sided sciatica [address] [place] [address] Social History Tobacco Use Types Packs/Day Years Used Date Smoking Tobacco: Never Smokeless Tobacco: Never Alcohol Use Standard Drinks/Week Comments Yes 0 (1 standard drink = 0.6 oz pure alcoho l) Sex Assigned at Date Recorded Female 05/29/2020 7:33 PM CDT COVID-19 Exposure Response Date Recorded In the last month, have you been in contact with No / Unsure 04/17/2020 12:41 PM INSPECTION AND TESTING SUPERVISOR someone who was confirmed or suspected to [...] and time spent performing 1:1 timed codes. ECTION AND TESTING SUPERVISOR documented in this encounter Plan of Treatment Not on filedocumented as of this encounter Procedures Procedure Name Priority Date/Time Associated Diagnosis Comme nts [place] THERAPEUTIC Routine 04/17/2020 3:00 PM Chronic left-sided l ow EXERCISES. EA 15 MIN INSPECTION AND TESTING SUPERVISOR back pain with left-sided sciatica [place] ULTRASOUND THERAPY, Routine 04/17/2020 3:00 PM Chronic left -sided low EA 15 MIN INSPECTION AND TESTING SUPERVISOR back pain with left-sided sciatica documented in this encounter Visit Diagnoses Diagnosis Chronic left-sided low back pain with le ft-sided sciatica documented in this encounter Additional Health Concerns Assessment Noted Time PHQ-9 Depression Total Score: 9 09/12/2015 7:13 AM CDT documented as of this encounter Care Teams Sports Psychologist Relationship Specialty Start Date End Date Jayson Lombardo MD PCP - General Family Practice 03/24/13 Jayson Lombardo MD Assigned PCP 08/12/14 04/20/20 documented as of this encounter
--- OUTSIDE RECORDS SUMMARY | 2022-02-17 17:42 | XMS_ITS | Encounter Summary ---
:1990 Author Organization [place] Address [address] [place] [address] Care Team Providers Name Role Phone Jayson [...] documented as of this encounter Care Teams Health Insurance Adjuster Relationship Specialty Start Date End Date Jayson Lombardo MD PCP - General Family Practice 03/24/13 documented as of this encounter
--- OUTSIDE RECORDS SUMMARY | 2022-02-17 17:42 | XMS_ITS | Encounter Summary ---
:1989 Author Organization [place] Address [address] [place] [address] Care Team Providers Name Role Phone Jayson Lombardo MD Primary Care Provider Unavailable Reason for Visit Reason Comments Heart Problem irregular heart beat Encounter Details Date Type Department Care Team Description 06/04/2020 Office Visit [facility] Jayson Lombardo ons (Primary Clinic [place] MD Juwan Dx) [address] [place] [address] Social History Tobacco Use Types [...] No follow-ups on file. Jayson Lombardo MD [facility] Ingram is a 29 year old who [...] documented as of this encounter Care Teams Generation Technician Relationship Specialty Start Date End Date Jayson Lombardo MD PCP - General Family Practice 03/24/13 documented as of this encounter
--- OUTSIDE RECORDS SUMMARY | 2022-02-17 17:42 | XMS_ITS | Encounter Summary ---
:1989 Author Organization [place] Address [address] [place] [address]. [place] [address] Care Team Providers Name Role Phone Jayson Lombardo MD Primary Care Provider Unavailable Jayson Lombardo MD Unavailable Unavailable Reason for Visit Rehab Therapy Physical Therapy (Routine) - Closed Specialty Diagnoses / Procedures Referred By Contact Refer red To Contact Physical Therapist / Diagnoses L sciatica/ Self, Irina @ [facility] Chiropractic in [place]/ [facility] Physical Therapy Procedures SPINE FOLLOW UP Sports & Physical Therapy - [facility] [address] [place] [address] Phone: Fax: Referral ID Status Reason Start Date Expiration Date Visits Requ ested Visits Authorized [id number] Closed 04/04/2020 03/14/2021 40 40 Encounter Details Date Type Department Care Team Description 04/04/2020 Therapy Visit [facility] Gurvinder Bauman, PT Chronic left-sided Rehabilitation Services [address] [address] low back pain with [place] [address] left-sided sciatica [address] [place] [address] Social History Tobacco Use Types Packs/Day Years Used Date Smoking Tobacco: Never Smokeless Tobacco: Never Alcohol Use Standard Drinks/Week Comments Yes 0 (1 standard drink = 0.6 oz pure alcoho l) Sex Assigned at Date Recorded Female 05/29/2020 7:33 PM CDT COVID-19 Exposure Response Date Recorded In the last month, have you been in contact with No / Unsure 04/04/2020 1:32 PM PERFORATOR someone who was confirmed or suspected to [...] is being advanced to more complex exercises. TITLE LAWYER/ATC plan: N/A Please refer to the daily flowsheet for treatment today, total treatment time and time spent performing 1:1 timed codes. ORATOR documented in this encounter Plan of Treatment Not on filedocumented as of this encounter Procedures Procedure Name Priority Date/Time Associated Diagnosis Comme nts [place] THERAPEUTIC Routine 04/04/2020 2:30 PM Chronic left-sided l ow EXERCISES. EA 15 MIN PERFORATOR back pain with left-sided sciatica [place] ULTRASOUND THERAPY, Routine 04/04/2020 2:30 PM Chronic left -sided low EA 15 MIN PERFORATOR back pain with left-sided sciatica documented in this encounter Visit Diagnoses Diagnosis Chronic left-sided low back pain with le ft-sided sciatica documented in this encounter Additional Health Concerns Assessment Noted Time PHQ-9 Depression Total Score: 9 09/12/2015 7:13 AM CDT documented as of this encounter Care Teams Encyclopedia Research Worker Relationship Specialty Start Date End Date Jayson Lombardo MD PCP - General Family Practice 03/24/13 Jayson Lombardo MD Assigned PCP 08/12/14 04/20/20 documented as of this encounter
--- OUTSIDE RECORDS SUMMARY | 2022-02-17 17:42 | XMS_ITS | Encounter Summary ---
:1990 Author Organization [facility] Address [address] [place] [address] Care Team Providers Name Role Phone Jayson [...] with No / Unsure 04/04/2020 1:32 PM EVENT SECURITY OFFICER someone who was 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 documented as of this encounter Plan of Treatment Not on filedocumented as of this encounter Visit Diagnoses Not on filedocumented in this encounter Additional Health Concerns Assessment Noted Time PHQ-9 Depression Total Score: 9 09/12/2015 7:13 AM CDT documented as of this encounter Care Teams Cad Design Engineer Relationship Specialty Start Date End Date Jayson Lombardo MD PCP - General Family Practice 03/24/13 Jayson Lombardo MD Assigned PCP 08/12/14 04/20/20 documented as of this encounter
--- OUTSIDE RECORDS SUMMARY | 2022-02-17 17:43 | XMS_ITS | Encounter Summary ---
:1990 Author Organization [facility] Address [address] [place] [address] Care Team Providers Name Role Phone Jayson [...] with No / Unsure 02/14/2020 11:06 AM IBM WEBSPHERE COMMERCE DEVELOPER someone who was 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 documented as of this encounter Plan of Treatment Not on filedocumented as of this encounter Visit Diagnoses Not on filedocumented in this encounter Additional Health Concerns Assessment Noted Time PHQ-9 Depression Total Score: 9 09/12/2015 7:13 AM CDT documented as of this encounter Care Teams Sample Book Maker Relationship Specialty Start Date End Date Jayson Lombardo MD PCP - General Family Practice 03/24/13 Jayson Lombardo MD Assigned PCP 08/12/14 04/20/20 documented as of this encounter
--- OUTSIDE RECORDS SUMMARY | 2022-02-17 17:43 | XMS_ITS | Encounter Summary ---
:1990 Author Organization [facility] Address [address] [place] [address]. [place] [address] Care Team Providers Name Role Phone Jayson Lombardo MD Primary Care Provider Unavailable Jayson Lombardo MD Unavailable Unavailable Jayson Lombardo MD Unavailable Unavailable Reason for Referral Consultation - Closed Specialty Diagnoses / Procedures Referred By Contact Refer red To Contact Diagnoses Hypothalamic hypogonadism (H) Irregular menses Jayson Lombardo MD [facility] [id number] [place] [address] Referral ID Status Reason Start Date Expiration Date Visits Requ ested Visits Authorized [id number] Closed 12/12/2014 12/12/2015 1 1 Reason for Visit Reason Comments Refill Request Encounter Details Date Type Department Care Team Description 12/12/2014 Office Visit [facility] Jayson Lombardo Adjustmen t disorder with anxious mood (Primary Dx); Clinic Roque Echeverria MD Underweight; [address] [facility] Hypothalamic hypogonadism (H ); [place], [place] Migraine with aura and without status migrainosus, not intractable; [id number] Irregular menses; [phone] Acute reaction to stress Social History Tobacco [...] unlikely having ovulatory cycles. Has seen her SPECIAL DELIVERY CARRIER for this issue and they changed her [...] 1 2. Underweight Discussed calorie supplement, consider control systems engineer. 3. Hypothalamic hypogonadism With irregular cycles I [...] 20 tablet; Refill: 0 Jayson Lombardo MD [facility] documented in this encounter Nursing Notes Eduar [...] as of this encounter Care Teams Market Developer Relationship Specialty Start Date End Date Jayson Lombardo MD PCP - General Family Practice 03/24/13 Jayson Lombardo MD PCP - Assigned PCP 08/12/14 05/17/18 Jayson Lombardo MD Assigned PCP 08/12/14 04/20/20 documented as of this encounter
--- OUTSIDE RECORDS SUMMARY | 2022-02-17 17:43 | XMS_ITS | Encounter Summary ---
:1990 Author Organization [facility] Address [address] [place] [address] Care Team Providers Name Role Phone Jayson Lombardo MD Primary Care Provider Unavailable Reason for Visit Reason Onset Date Comments Formulary Issue 08/11/2013 SUMAtriptan 100MG Encounter Details Date Type Department Care Team Description 08/11/2013 Telephone [facility] Jayson Lombardo, [facility] Issue Clinic Roque RAMOS (SUMAtriptan 100MG) [address] [place] [address] Social History Tobacco Use Types [...] on filedocumented in this encounter Care Teams Collection Support Specialist Relationship Specialty Start Date End Date Jayson Lombardo MD PCP - General Family Practice 03/24/13 documented as of this encounter
--- OUTSIDE RECORDS SUMMARY | 2022-02-17 17:43 | XMS_ITS | Encounter Summary ---
:1990 Author Organization [facility] Address [address] [place] [address] Care Team Providers Name Role Phone Jayson Lombardo MD Primary Care Provider Unavailable Reason for Visit Reason Onset Date Comments Medication Problem 09/07/2013 Topamax Encounter Details Date Type Department Care Team Description 09/07/2013 Telephone [facility] Jayson Lombardo, [facility] Problem Clinic Araceli RAMOS (Topamax) [facility], [address] [place] [address] Social History Tobacco Use Types [...] VM advising the following. Annabelle Hwang RN [facility] Work Force Telephone Encounter - Chela [...] new symptoms develop, call your PCP or [facility] as soon as possible. Pt would like to know if she can DC medication. Does she have to taper off or can she just DC? Stateshe doesn't want to be on it anymore. Please advise. Chart needs to be updated. PT: [phone] (Ok to ) Thank you! Annabelle Hwang RN documented in this encounter Plan of Treatment Not on filedocumented as of this encounter Visit Diagnoses Diagnosis Migraines Migraine, unspecified, without mention o f intractable migraine without mention of status migrainosus documented in this encounter Care Teams Weatherization Field Technician Relationship Specialty Start Date End Date Jayson Lombardo MD PCP - General Family Practice 03/24/13 documented as of this encounter
--- OUTSIDE RECORDS SUMMARY | 2022-02-17 17:43 | XMS_ITS | Encounter Summary ---
:1990 Author Organization [facility] Address [address] [place] [address] Care Team Providers Name Role Phone Jayson Lombardo MD Primary Care Provider Unavailable Jayson Lombardo MD Unavailable Unavailable Reason for Visit [facility] Physical Therapy (Routine) - Closed Specialty Diagnoses / Procedures Referred By Contact Refer red To Contact Physical Therapist / Diagnoses L sciatica/ Irina Ibrahim @ [facility] in [place]/ [facility] Self, Referred, Gurvinder Cross, PT Physical Therapy Procedures SPINE INITIAL [address] [place], [place] [address] Phone: Fax: Referral ID Status Reason Start Date Expiration Date Visits Requ ested Visits Authorized [id number] Closed 01/31/2020 03/14/2020 40 40 Encounter Details Date Type Department Care Team Description 03/13/2020 Therapy Visit [facility] Gurvinder Gan, PT Chronic left-sided Rehabilitation Services [address] low back pain with [address] left-sided sciatica [address] [place] [phone] Social History Tobacco Use Types Packs/Day Years Used Date Smoking Tobacco: Never Smokeless Tobacco: Never Alcohol Use Standard Drinks/Week Comments Yes 0 (1 standard drink = 0.6 oz pure alcoho l) Sex Assigned at Date Recorded Female 05/29/2020 7:33 PM CDT COVID-19 Exposure Response Date Recorded In the last month, have you been in contact with No / Unsure 03/13/2020 1:39 PM YARN WINDER someone who was 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 documented as of this encounter Progress Notes Gurvinder Bauman, PT - 03/13/2020 1:40 PM CST Subjective: The history is provided by the patient. No tanyard worker was used. Physical Exam Objective: System Physical [...] The following modalities have been added: ultrasound SENIOR INTERACTION DESIGNER/ATC plan: N/A Please refer to the daily flowsheet for treatment today, total treatment time and time spent performing 1:1 timed codes. WINDER documented in this encounter Plan of Treatment Not on filedocumented as of this encounter Procedures Procedure Name Priority Date/Time Associated Diagnosis Comme nts [facility] THERAPEUTIC Routine 03/13/2020 4:44 PM Chronic left-sided l ow EXERCISES. EA 15 MIN YARN WINDER back pain with left-sided sciatica [facility] ULTRASOUND THERAPY, Routine 03/13/2020 4:44 PM Chronic left -sided low EA 15 MIN YARN WINDER back pain with left-sided sciatica documented in this encounter Visit Diagnoses Diagnosis Chronic left-sided low back pain with le ft-sided sciatica documented in this encounter Additional Health Concerns Assessment Noted Time PHQ-9 Depression Total Score: 9 09/12/2015 7:13 AM CDT documented as of this encounter Care Teams Director Intelligence Analysis Programs Relationship Specialty Start Date End Date Jayson Lombardo MD PCP - General Family Practice 03/24/13 Jayson Lombardo MD Assigned PCP 08/12/14 04/20/20 documented as of this encounter
--- OUTSIDE RECORDS SUMMARY | 2022-02-17 17:43 | XMS_ITS | Encounter Summary ---
:1990 Author Organization [facility] Address [address] [place] [address] Care Team Providers Name Role Phone Jayson Lombardo MD Primary Care Provider Unavailable Jayson Lombardo MD Unavailable Unavailable Jayson Lombardo MD Unavailable Unavailable Reason for Visit Reason Comments Recheck Medication Encounter Details Date Type Department Care Team Description 05/27/2016 Office Visit [facility] Jayson Lombardo t disorder Clinic Roque Echeverria MD with anxious mood [address] [facility] (Primary Dx) [place] [address] Social History Tobacco Use [...] 30 tablet; Refill: 0 Jayson Lombardo MD [facility] documented in this encounter Nursing Notes Stacey [...] documented as of this encounter Care Teams Construction Plumber Relationship Specialty Start Date End Date Jayson Lombardo MD PCP - General Family Practice 03/24/13 Jayson Lombardo MD PCP - Assigned PCP 08/12/14 05/17/18 Jayson Lombardo MD Assigned PCP 08/12/14 04/20/20 documented as of this encounter
--- OUTSIDE RECORDS SUMMARY | 2022-02-17 17:43 | XMS_ITS | Encounter Summary ---
:1990 Author Organization [facility] Address [address] [place] [address] Care Team Providers Name Role Phone Jayson [...] with No / Unsure 02/07/2020 11:08 AM CONTRACT ADMINISTRATIVE ASSISTANT someone who was 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 documented as of this encounter Plan of Treatment Not on filedocumented as of this encounter Visit Diagnoses Not on filedocumented in this encounter Additional Health Concerns Assessment Noted Time PHQ-9 Depression Total Score: 9 09/12/2015 7:13 AM CDT documented as of this encounter Care Teams Vice President Consulting Services Relationship Specialty Start Date End Date Jayson Lombardo MD PCP - General Family Practice 03/24/13 Jayson Lombardo MD Assigned PCP 08/12/14 04/20/20 documented as of this encounter
--- OUTSIDE RECORDS SUMMARY | 2022-02-17 17:43 | XMS_ITS | Encounter Summary ---
:1990 Author Organization [facility] Address [address] [facility] [place] [address] Care Team Providers Name Role Phone Jayson Lombardo MD Primary Care Provider Unavailable Jayson Lombardo MD Unavailable Unavailable Jayson Lombardo MD Unavailable Unavailable Reason for Visit Reason Comments Recheck Medication Encounter Details Date Type Department Care Team Description 01/25/2015 Office Visit [facility] Caridad Nunez Adjust ment disorder Clinic Roque Duque MD with anxious mood [address] [facility] [address] [address] (Primary Dx) [place], [place] [address] [phone] Social History Tobacco Use Types Packs/Day Years Used Date Smoking Tobacco: Never Smokeless Tobacco: Never Alcohol Use Standard Drinks/Week Comments Yes 0 (1 standard drink = 0.6 oz pure alcoho l) Sex Assigned at Date Recorded Female 05/29/2020 7:33 PM CDT documented as of this encounter Last Filed Vital Signs Vital Sign Reading Time Taken Comments Blood Pressure 92/60 01/25/2015 7:50 AM CRYPTOLOGIC SUPPORT SPECIALIST Pulse 59 01/25/2015 7:50 AM CRYPTOLOGIC SUPPORT SPECIALIST Temperature 36.4 ??C (97.6 ??F) 01/25/2015 7:50 AM CRYPTOLOGIC SUPPORT SPECIALIST Respiratory Rate - - Oxygen Saturation 99% 01/25/2015 7:50 AM CRYPTOLOGIC SUPPORT SPECIALIST Inhaled Oxygen Concentration - - Weight 48.1 kg (106 lb) 01/25/2015 7:50 AM CRYPTOLOGIC SUPPORT SPECIALIST Height 170.2 cm (5' 7) 01/25/2015 7:50 AM CRYPTOLOGIC SUPPORT SPECIALIST Body Mass Index 16.6 01/25/2015 7:50 AM CRYPTOLOGIC SUPPORT SPECIALIST documented in this encounter Progress Notes Cairdad Nunez MD - 01/25/2015 7:51 AM CST [...] 10 - Total Score - 8 PHQ-9 Marshallese PHQ-9 Any Language GAD7 ?? Amount of [...] 6 months for re-eval Caridad Nunez MD [facility] TOLOGIC SUPPORT SPECIALIST documented in this encounter Nursing Notes Giulia Lazar, RELIGION INSTRUCTOR - 01/25/2015 7:50 AM CST Chief Complaint [...] completed using cuff size: justin Lazar CMA TOLOGIC SUPPORT SPECIALIST documented in this encounter Plan of Treatment Not on filedocumented as of this encounter Visit Diagnoses Diagnosis Adjustment disorder with anxious mood - Primary Adjustment disorder with anxiety documented in this encounter Additional Health Concerns Assessment Noted Time PHQ-9 Depression Total Score: 4 01/26/2015 7:25 AM CRYPTOLOGIC SUPPORT SPECIALIST documented as of this encounter Care Teams Culinary Chef Relationship Specialty Start Date End Date Jayson Lombardo MD PCP - General Family Practice 03/24/13 Jayson Lombardo MD PCP - Assigned PCP 08/12/14 05/17/18 Jayson Lombardo MD Assigned PCP 08/12/14 04/20/20 documented as of this encounter
--- OUTSIDE RECORDS SUMMARY | 2022-02-17 17:43 | XMS_ITS | Encounter Summary ---
:1990 Author Organization [facility] Address [address] [place] [address] Care Team Providers Name Role Phone aJyson Lombardo MD Primary Care Provider Unavailable Jayson [...] with No / Unsure 03/13/2020 1:39 PM TEACHING MUSIC LESSONS someone who was 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 documented as of this encounter Plan of Treatment Not on filedocumented as of this encounter Visit Diagnoses Not on filedocumented in this encounter Additional Health Concerns Assessment Noted Time PHQ-9 Depression Total Score: 9 09/12/2015 7:13 AM CDT documented as of this encounter Care Teams Digital Forensic Examiner Relationship Specialty Start Date End Date Jayson Lombardo MD PCP - General Family Practice 03/24/13 Jayson Lombardo MD Assigned PCP 08/12/14 04/20/20 documented as of this encounter
--- OUTSIDE RECORDS SUMMARY | 2022-02-17 17:43 | XMS_ITS | Encounter Summary ---
:1990 Author Organization [facility] Address [address] [place] [address] Care Team Providers Name Role Phone Jayson Lombardo MD Primary Care Provider Unavailable Reason for Visit Reason Onset Date Comments Panel Management 01/10/2014 Encounter Details Date Type Department Care Team Description 01/10/2014 Telephone [facility] Jayson Lombardo Ra, MD Panel Management [facility] [id number] [place] [phone] Social History Tobacco Use Types Packs/Day Years Used Date Smoking Tobacco: Never Smokeless Tobacco: Never Alcohol Use Standard Drinks/Week Comments Yes 0 (1 standard drink = 0.6 oz pure alcoho l) Sex Assigned at Date Recorded Female 05/29/2020 7:33 PM CDT documented as of this encounter Miscellaneous Notes Telephone Encounter - WeissJed her, CRANIOLOGIST - 01/10/2014 2:44 PM CDT Panel Management Review Date of last visit with a [facility] provider: Chela Engel on 08-10-13. Date of next visit with a [facility] provider: None. Problem List Patient Active Problem [...] on filedocumented in this encounter Care Teams Telecommunications Clerk Relationship Specialty Start Date End Date Jayson Lombardo MD PCP - General Family Practice 03/24/13 documented as of this encounter
--- OUTSIDE RECORDS SUMMARY | 2022-02-17 17:43 | XMS_ITS | Encounter Summary ---
:1990 Author Organization [facility] Address [address] [facility] [place] [address] Care Team Providers Name Role Phone Jayson Lombardo MD Primary Care Provider Unavailable Reason for Referral Consultation - Closed Specialty Diagnoses / Procedures Referred By Contact Refer red To Contact Diagnoses Headache(784.0) Chela Servin [facility] [address] [address] [place] [address] [place] [address] Phone: Fax: Referral ID Status Reason Start Date Expiration Date Visits Requ ested Visits Authorized [id number] Closed 08/10/2013 02/06/2014 1 1 Reason for Visit Reason Comments Recheck Medication imitrex Encounter Details Date Type Department Care Team Description 08/10/2013 Office Visit [facility] Nakul Servin (Primary Dx); Clinic [place] Chela Contreras PA-C Migraines; [address] [address] [place] [facility] [employer] [place] [id number] [phone] Social History Tobacco Use Types Packs/Day Years [...] from the original note were not included. (847.58) Migraines Comment: Plan: Take 1 tablet (25 [...] more often than directed. Talk to your seat joiner chainstitch regarding the use of this medicine in children. Special care may be needed. While this drug may be prescribed for children as young as 2 years of age for selected conditions, precautions do apply. Overdosage: If you think you have taken too much of this medicine contact a poison control center [facility] room at once. NOTE: This medicine [...] this medicine? Visit your doctor or health healthcare sales representative for regular checks on your progress. Do [...] dying should be reported to your health healthcare sales representative right away. This medicine may increase the [...] this medicine may enroll in the [place]iepile[place] Drug Registry by calling . This registry collects information about the safetyof antiepileptic drug use during . What side effects may I notice from receiving this medicine? Side effects that you should report to your doctor or health healthcare sales representative as soon as possible: ?? allergic reactions [...] attention (report to your doctor or health healthcare sales representative if they continue or are bothersome): ?? altered taste ?? back pain, joint or muscle aches and pains ?? diarrhea, or constipation ?? headache ?? loss of appetite ?? nausea ?? stomach upset, indigestion ?? tremors This list may not describe all possible side effects. Call your doctor for medical advice about sideeffects. You may report side effects to FDA at 3-553-TUY-7586. Where should I keep my medicine? Keep [...] MG-MCG per tablet Chela Servin PA-C, [facility] Patient Instructions (346.90) Migraines Comment: Plan: Take [...] more often than directed. Talk to your seat joiner chainstitch regarding the use of this medicine in children. Special care may be needed. While this drug may be prescribed for children as young as 2 years of age for selected conditions, precautions do apply. Overdosage: If you think you have taken too much of this medicine contact a poison control center [facility] room at once. NOTE: This medicine [...] this medicine? Visit your doctor or health healthcare sales representative for regular checks on your progress. Do [...] dying should be reported to your health healthcare sales representative right away. This medicine may increase the [...] this medicine may enroll in the [place]iepile[place] Drug Registry by calling . This registry collects information about the safetyof antiepileptic drug use during . What side effects may I notice from receiving this medicine? Side effects that you should report to your doctor or health healthcare sales representative as soon as possible: ?? allergic reactions [...] attention (report to your doctor or health healthcare sales representative if they continue or are bothersome): ?? altered taste ?? back pain, joint or muscle aches and pains ?? diarrhea, or constipation ?? headache ?? loss of appetite ?? nausea ?? stomach upset, indigestion ?? tremors This list may not describe all possible side effects. Call your doctor for medical advice about sideeffects. You may report side effects to FDA at 0-644-SDC-2151. Where should I keep my medicine? Keep [...] cycle documented in this encounter Care Teams Computational Linguist Relationship Specialty Start Date End Date Jayson Lombardo MD PCP - General Family Practice 03/24/13 documented as of this encounter
--- OUTSIDE RECORDS SUMMARY | 2022-02-17 17:43 | XMS_ITS | Encounter Summary ---
:1990 Author Organization [facility] Address [facility] [facility] [place] [address] Care Team Providers Name Role Phone Jayson Lombardo MD Primary Care Provider Unavailable Reason for Visit Reason Onset Date Comments Refill Request 07/25/2013 SUMAtriptan (IMITREX ) 100 MG tablet Encounter Details Date Type Department Care Team Description 07/25/2013 Shawanda Luu [facility] Malathi, Refill Request Clinic [place] Chela Contreras PA-C (SUMAtriptan (IMITREX) [address] [facility] [id number] [place] [address] [address] ... [place] [address] [phone] Social History Tobacco Use Types Packs/Day Years [...] tablet, MIGRAINE ACTION PLAN Annabelle Hwang RN [facility] [employer] Telephone Encounter - Mel Ruggiero - 07/26/2013 8:23 AM CDT Message from [employer]: Original authorizing provider: Chela Servin PA-C, [facility] would like a refill of the following medications: SUMAtriptan (IMITREX) 100 MG tablet [Chela Servin PA-C, [facility]] Preferred pharmacy: [id number] [address] [facility] Comment: documented in this encounter Plan of Treatment Not on filedocumented as of this encounter Visit Diagnoses Diagnosis Migraines Migraine, unspecified, without mention o f intractable migraine without mention of status migrainosus documented in this encounter Care Teams Electrical Mechanic Relationship Specialty Start Date End Date Jayson Lombardo MD PCP - General Family Practice 03/24/13 documented as of this encounter
--- OUTSIDE RECORDS SUMMARY | 2022-02-17 17:43 | XMS_ITS | Encounter Summary ---
:1990 Author Organization [facility] Address [address] [place] [address]. [place] [address] Care Team Providers Name Role Phone Jayson Lombardo MD Primary Care Provider Unavailable Jayson Lombardo MD Unavailable Unavailable Jayson Lombardo MD Unavailable Unavailable Reason for Visit Reason Comments Anxiety Encounter Details Date Type Department Care Team Description 10/20/2014 Office Visit [facility] Liu Ureña Acute reaction to [facility] [place] [facility] Basilio stress (Primary Dx) [address] [address] [phone] Social History Tobacco Use Types Packs/Day Years [...] list, Allergies, and Medical/Social/Surgical histories reviewed in [facility] andupdated as appropriate. ROS: Constitutional, HEENT, [...] consider longer term plan. Liu Ureña PA-C [facility] Physical Exam documented in this [...] Primary documented in this encounter Care Teams Campground Caretaker Relationship Specialty Start Date End Date Jayson Lombardo MD PCP - General Family Practice 03/24/13 Jayson Lombardo MD PCP - Assigned PCP 08/12/14 05/17/18 Jayson Lombardo MD Assigned PCP 08/12/14 04/20/20 documented as of this encounter
--- OUTSIDE RECORDS SUMMARY | 2022-02-17 17:43 | XMS_ITS | Encounter Summary ---
:1990 Author Organization [place] Address [address] [place] [address] Care Team Providers Name Role Phone Jayson Lombardo MD Primary Care Provider Unavailable Reason for Visit Reason Onset Date Comments Forms 03/09/2014 Biometric screening form Encounter Details Date Type Department Care Team Description 03/09/2014 Telephone [facility] Jayson Lombardo, Form s ([facility] [place] screening form) [address] [place] [address] Social History Tobacco Use Types [...] sent to abstraction and a copy to [employer] folder at the station. Mel Ruggiero Network Engineer MANAGER documented in this encounter Plan of Treatment Not on filedocumented as of this encounter Visit Diagnoses Not on filedocumented in this encounter Care Teams Equipment Superintendent Relationship Specialty Start Date End Date Jayson Lombardo MD PCP - General Family Practice 03/24/13 documented as of this encounter
--- OUTSIDE RECORDS SUMMARY | 2022-02-17 17:43 | XMS_ITS | Encounter Summary ---
:1990 Author Organization [facility] Address [address] [place] [address] Care Team Providers Name Role Phone Jayson Lombardo MD Primary Care Provider Unavailable Reason for Visit Reason Onset Date Comments ER F/U 03/27/2013 [facility] Encounter Details Date Type Department Care Team Description 03/27/2013 [facility] Jayson Lombardo Ra, MD ER F/U ([facility]VRER) [place] [address] [place] [address] Social History Tobacco Use [...] on behalf of Dr. Lombardo's office at [facility]. I am calling to follow up and [...] contact us through the main clinic number, [phone] in if the clinic is not open, triage nurses are available 05/10 to help you. We would like you to know that our clinic has extended hours (provide information). We also have urgent care (provide details on closest location and hours/contact info) Thank you for your time and take care! Kaylynn Cooper, RN ERCIAL LINES ACCOUNT EXECUTIVE Telephone Encounter - Kaylynn Cooper RN - 03/29/2013 9:33 AM CST ED / Discharge Outreach Protocol Patient Contact Attempt # 1 Was call answered? No. Left message on voicemail with information to call me back. Kaylynn Cooper, RN ERCIAL LINES ACCOUNT EXECUTIVE Telephone Encounter - Dagmar Godfrey - 03/27/2013 12:10 PM CST 03/24/2013 abdominal pain No future appt Dagmar Godfrey Set And Exhibit Designer ERCIAL LINES ACCOUNT EXECUTIVE documented in this encounter Plan of Treatment Not on filedocumented as of this encounter Visit Diagnoses Not on filedocumented in this encounter Care Teams Pediatric Care Coordinator Relationship Specialty Start Date End Date Jayson Lombardo MD PCP - General Family Practice 03/24/13 documented as of this encounter
--- OUTSIDE RECORDS SUMMARY | 2022-02-17 17:43 | XMS_ITS | Encounter Summary ---
:1990 Author Organization [place] Address [address] [place] [address] Care Team Providers Name Role Phone Jayson Lombardo MD Primary Care Provider Unavailable Jayson Lombardo MD Unavailable Unavailable Reason for Visit NELL Physical Therapy (Routine) - Closed Specialty Diagnoses / Procedures Referred By Contact Refer red To Contact Physical Therapist / Diagnoses L sciatica/ Irina Ibrahim @ [facility] in [place]/ [facility] Self, Referred, Gurvinder Cross, PT Physical Therapy Procedures SPINE INITIAL [address] [place], [place] [address] Phone: Fax: Referral ID Status Reason Start Date Expiration Date Visits Requ ested Visits Authorized [id number] Closed 01/31/2020 03/14/2020 40 40 Encounter Details Date Type Department Care Team Description 02/14/2020 Therapy Visit [facility] Gurvinder Gan, PT Chronic left-sided Rehabilitation Services [address] low back pain with [place] [address] left-sided sciatica [address] [place] [phone] Social History Tobacco Use Types Packs/Day Years Used Date Smoking Tobacco: Never Smokeless Tobacco: Never Alcohol Use Standard Drinks/Week Comments Yes 0 (1 standard drink = 0.6 oz pure alcoho l) Sex Assigned at Date Recorded Female 05/29/2020 7:33 PM CDT COVID-19 Exposure Response Date Recorded In the last month, have you been in contact with No / Unsure 02/14/2020 11:06 AM TRAINING AND DEVELOPMENT REP someone who was confirmed or suspected to [...] is being advanced to more complex exercises. INTEGRATED CIRCUIT IC LAYOUT DESIGNER/ATC plan: N/A Please refer to the daily flowsheet for treatment today, total treatment time and time spent performing 1:1 timed codes. NING AND DEVELOPMENT REP documented in this encounter Plan of Treatment Not on filedocumented as of this encounter Procedures Procedure Name Priority Date/Time Associated Diagnosis Comme nts PA NEUROMUSCULAR Routine 02/14/2020 2:01 PM Chronic left-sided REEDUCATION,1+ AREAS, EA TRAINING AND DEVELOPMENT REP low back pain wi th 15 MIN left-sided sciatica PA THERAPEUTIC EXERCISES. 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
--- OUTSIDE RECORDS SUMMARY | 2022-02-17 17:43 | XMS_ITS | Encounter Summary ---
:1990 Author Organization [place] Address [address] [place] [address]. [place] [address] Care Team Providers Name Role Phone Jayson Lombardo MD Primary Care Provider Unavailable Jayson Lombardo MD Unavailable Unavailable Jayson Lombardo MD Unavailable Unavailable Reason for Visit Reason Comments Diarrhea Encounter Details Date Type Department Care Team Description 04/27/2015 Office Visit [facility] Marilyn Luna's diarrhea [facility] FREDI [place] (Primary Dx) [facility] [address] [facility] [address] [place] [address] SUITE [facility] [phone] [place], [place] (Work) [address] [phone] Social History Tobacco Use Types Packs/Day Years [...] Comments Blood Pressure 92/64 04/27/2015 10:50 AM BARIATRIC PROGRAM COORDINATOR Pulse 56 04/27/2015 10:50 AM BARIATRIC PROGRAM COORDINATOR Temperature 36.5 ??C (97.7 ??F) 04/27/2015 10:50 AM BARIATRIC PROGRAM COORDINATOR Respiratory Rate 12 04/27/2015 10:50 AM BARIATRIC PROGRAM COORDINATOR Oxygen Saturation 98% 04/27/2015 10:50 AM BARIATRIC PROGRAM COORDINATOR Inhaled Oxygen Concentration - - Weight 49 kg (108 lb) 04/27/2015 10:50 AM BARIATRIC PROGRAM COORDINATOR Height 170.8 cm (5' 7.25) 04/27/2015 10:50 AM BARIATRIC PROGRAM COORDINATOR Body Mass Index 16.79 04/27/2015 10:50 AM BARIATRIC PROGRAM COORDINATOR documented in this encounter Patient Instructions Patient InstructionsMarilyn Luna PA-C - 04/27/2015 11:01 AM BARIATRIC PROGRAM COORDINATOR Images from the original note were not [...] severe liver damage.) 3. Do not give [id number]-ibldlda anti-diarrheal medicines, unless advised by??the doctor. 4. [...] higher, not better with fever medication ?? [id number] [employer]. [address] [place] [address]. All rights reserved. This information is not intended as a substitute for professional medical care. Always follow your healthcare professional's instructions. ATRIC PROGRAM COORDINATOR documented in this encounter Progress Notes Marilyn Luna PA-C - 04/27/2015 10:52 AM CST There are no preventive care reminders to display for this patient. Health Maintenance reviewed at today's visit patient asked to schedule/complete: None, Health Maintenance up to date. Leighann Underwood CMA SUBJECTIVE: Naatly Simon is a 24 year old female who presents to clinic today for the following health issues: Diarrhea Duration of complaint: 5 days. Patient traveled to [facility] and upon return has had diarrhea. Description: Consistency of stool: watery, runny and very soft Blood in stool: no Number of loose stools past 24 hours: 4-5 daily Fever: no Nausea/vomitting: no Abdominal pain: no Weight loss: no Recent antibiotics: no Recent travel: YES- [facility] Any contacts ill: no Therapies tried and [...] Medication list, Allergies, Medical/Social/Surg hx reviewed in [facility], updated as appropriate. OBJECTIVE: BP [...] not improving as anticipated. Marilyn Luna PA-C [facility] ATRIC PROGRAM COORDINATOR documented in this encounter Nursing Notes Leighann [...] using cuff size: regular Leighann Underwood CMA ATRIC PROGRAM COORDINATOR documented in this encounter Plan of Treatment Not on filedocumented as of this encounter Visit Diagnoses Diagnosis Traveler's diarrhea - Primary Infectious diarrhea documented in this encounter Additional Health Concerns Assessment Noted Time PHQ-9 Depression Total Score: 4 01/26/2015 7:25 AM BARIATRIC PROGRAM COORDINATOR documented as of this encounter Care Teams Cashier Wrapper Relationship Specialty Start Date End Date Jayson Lombardo MD PCP - General Family Practice 03/24/13 Jayson Lombardo MD PCP - Assigned PCP 08/12/14 05/17/18 Jayson Lombardo MD Assigned PCP 08/12/14 04/20/20 documented as of this encounter
--- OUTSIDE RECORDS SUMMARY | 2022-02-17 17:43 | XMS_ITS | Encounter Summary ---
:1989 Author Organization [place] Address [address] [facility] [place] [address] Care Team Providers Name Role Phone Jayson Lombardo MD Primary Care Provider Unavailable Reason for Visit Reason Comments Sick bleeding all the time, david watt cold Encounter Details Date Type Department Care Team Description 06/22/2014 Office Visit [facility] [place], Excess tong or frequent menstruation (Primary Dx); [facility] [place] Chela Contreras PA-C IRREGULAR MENSTRUATION; [phone] [place] [address] Migraine, unspecified, without mention o f intractable migraine without mention of status migrainosus; [place] [phone] [phone] Social History Tobacco Use Types Packs/Day Years [...] withinnormal limits. Has appointment set up with [employer] administrator in early july Plan: CBC with platelets [...] See Patient Instructions Chela Servin PA-C, [facility] documented in this encounter Nursing [...] athologist Signature TSH 1.42 0.40 - 4.00 [facility] mU/L [facility] Specimen Anatomical Collection Method Collection Time Receive d Time (Source) Location / / Volume Laterality Blood specimen 06/22/2014 9:10 AM 015 9:11 (specimen) CDT AM CDT Chela Servin PA-C LAB - BLOOD ORDERABLES Performing Organization Address City/State/ZIP Code Phon e Number [facility] [address] [place] [address] CBC with platelets differential (06/22/2014 9:10 AM CDT) [facility] g[facility] Method Time Signature WBC 6.5 4.0 - [place] 11.0 [facility] 10e9/L [place] RBC Count 4.65 3.8 - 5.2 [place] 10e12/L [facility] Hemoglobin 14.2 11.7 - [place] 15.7 g/dL [facility] Hematocrit 42.3 35.0 - [place] 47.0 % [facility] MCV 91 78 - 100 [employer] MCH 30.5 26.5 - [place] 33.0 pg [facility] MCHC 33.6 31.5 - [place] 36.5 g/dL [facility] RDW 13.5 10.0 - [place] 15.0 % [facility] Platelet Count 178 150 - 450 [place] 10e9/L [facility] Diff Method Automated [facility] % Neutrophils 56.2 % [facility] % Lymphocytes 31.2 % [facility] % Monocytes 8.9 % [facility] % Eosinophils 3.2 % [facility] % Basophils 0.5 % [facility] Absolute 3.7 1.6 - 8.3 [place] Neutrophil 10e9/L [facility] Absolute 2.0 0.8 - 5.3 [place] Lymphocytes 10e9/L [facility] Absolute 0.6 0.0 - 1.3 [place] Monocytes 10e9/L [facility] Absolute 0.2 0.0 - 0.7 [place] Eosinophils 10e9/L [facility] Absolute 0.0 0.0 - 0.2 [place] Basophils 10e9/L [facility] Specimen Anatomical Collection Method Collection Time Receive d Time (Source) Location / / Volume Laterality Blood specimen 06/22/2014 9:10 AM 015 9:11 (specimen) CDT AM CDT Chela Servin PA-C LAB - BLOOD ORDERABLES Performing Organization Address City/State/ZIP Code Phon e Number [facility] [address] [place] [address] documented in this encounter Visit Diagnoses Diagnosis Excessive or frequent menstruation - Shakira na IRREGULAR MENSTRUATION Irregular menstrual cycle Migraine, unspecified, without mention o f intractable migraine without mention of status migrainosus Viral URI Acute upper respiratory infections of un specified site documented in this encounter Care Teams Nuclear Waste Process Operator Relationship Specialty Start Date End Date Jayson Lombardo MD PCP - General Family Practice 03/24/13 documented as of this encounter
--- OUTSIDE RECORDS SUMMARY | 2022-02-17 17:43 | XMS_ITS | Encounter Summary ---
:1990 Author Organization [place] Address [address] [place] [address] Care Team Providers Name Role Phone Jayson Lombardo MD Primary Care Provider Unavailable Jayson Lombardo MD Unavailable Unavailable Reason for Visit NELL Physical Therapy (Routine) - Closed Specialty Diagnoses / Procedures Referred By Contact Refer red To Contact Physical Therapist / Diagnoses L sciatica/ Irina Ibrahim @ [facility] in [place]/ [facility] Self, Referred, Gurvinder Cross, PT Physical Therapy Procedures SPINE INITIAL [address] [place], [place] [address] Phone: Fax: Referral ID Status Reason Start Date Expiration Date Visits Requ ested Visits Authorized [id number] Closed 01/31/2020 03/14/2020 40 40 Encounter Details Date Type Department Care Team Description 03/01/2020 Therapy Visit [facility] Gurvinder Gan, PT Chronic left-sided Rehabilitation Services [address] low back pain with [place] [address] left-sided sciatica [address] [place] [phone] Social History Tobacco Use Types Packs/Day Years Used Date Smoking Tobacco: Never Smokeless Tobacco: Never Alcohol Use Standard Drinks/Week Comments Yes 0 (1 standard drink = 0.6 oz pure alcoho l) Sex Assigned at Date Recorded Female 05/29/2020 7:33 PM CDT COVID-19 Exposure Response Date Recorded In the last month, have you been in contact with No / Unsure 03/01/2020 11:02 AM FOUNDRY WORKER APPRENTICE someone who was confirmed or suspected [...] is being advanced to more complex exercises. WEB MERCHANDISER/ATC plan: N/A Please refer to the daily flowsheet for treatment today, total treatment time and time spent performing 1:1 timed codes. DRY WORKER APPRENTICE documented in this encounter Plan of Treatment Not on filedocumented as of this encounter Procedures Procedure Name Priority Date/Time Associated Diagnosis Comme nts UT NEUROMUSCULAR Routine 03/01/2020 4:15 PM Chronic left-sided REEDUCATION,1+ AREAS, EA FOUNDRY WORKER APPRENTICE low back pain wi th 15 MIN left-sided sciatica UT THERAPEUTIC EXERCISES. Routine 03/01/2020 4:15 PM Chronic l eft-sided EA 15 MIN FOUNDRY WORKER APPRENTICE low back pain with left-sided sciatica documented in this encounter Visit Diagnoses Diagnosis Chronic left-sided low back pain with le ft-sided sciatica documented in this encounter Additional Health Concerns Assessment Noted Time PHQ-9 Depression Total Score: 9 09/12/2015 7:13 AM CDT documented as of this encounter Care Teams Teamcenter Consultant Relationship Specialty Start Date End Date Jayson Lombardo MD PCP - General Family Practice 03/24/13 Jayson Lombardo MD Assigned PCP 08/12/14 04/20/20 documented as of this encounter
--- OUTSIDE RECORDS SUMMARY | 2022-02-17 17:43 | XMS_ITS | Encounter Summary ---
:1990 Author Organization [place] Address [address] [place] [address] Care Team Providers Name Role Phone Jayson Lombardo MD Primary Care Provider Unavailable Jayson Lombardo MD Unavailable Unavailable Jayson Lombardo MD Unavailable Unavailable Reason for Visit Reason Comments Physical Blood Draw IS fasting Encounter Details Date Type Department Care Team Description 02/25/2015 Office Visit [facility] Jayson Lombardo Encounter for routine adult health examination without abnormal findings (Primary Dx); [facility] [place] [facility], left [address] [place] [phone] Social History Tobacco Use Types [...] Comments Blood Pressure 94/64 02/25/2015 7:08 AM KITCHEN BATH DESIGNER Pulse 68 02/25/2015 7:08 AM KITCHEN BATH DESIGNER Temperature 36.9 ??C (98.4 ??F) 02/25/2015 7:08 AM KITCHEN BATH DESIGNER Respiratory Rate - - Oxygen Saturation 99% 02/25/2015 7:08 AM KITCHEN BATH DESIGNER Inhaled Oxygen Concentration - - Weight 47.2 kg (104 lb) 02/25/2015 7:08 AM KITCHEN BATH DESIGNER Height 171.5 cm (5' 7.5) 02/25/2015 7:08 AM KITCHEN BATH DESIGNER Body Mass Index 16.05 02/25/2015 7:08 AM KITCHEN BATH DESIGNER documented in this encounter Patient Instructions Patient InstructionsEduar Jeff, BELT LACER - 02/25/2015 7:09 AM CST Images from [...] accuracy by faculty at the [facility] at [facility]. Web site: [email or web address] HEN BATH DESIGNER documented in this encounter Progress Notes Jayson [...] Reyna and colleagues,with an educational srikanth from [employer].) 12/12/2014 03/09/2014 Q1: Little interest or pleasure [...] recommended All Histories reviewed and updated in [facility]. Past Medical History Diagnosis Date ??? [...] list, Allergies, and Medical/Social/Surgical histories reviewed in [facility] andupdated as appropriate. OBJECTIVE: Pulse 68 [...] Preventive Guidelines Dietary Guidelines for Americans, 2010 [employer] Jayson Lombardo MD [facility] HEN BATH DESIGNER documented in this encounter Nursing Notes Eduar [...] completed using cuff size: justin Jeff CMA HEN BATH DESIGNER documented in this encounter Plan of Treatment Not on filedocumented as of this encounter Procedures Procedure Name Priority Date/Time Associated Diagnosis Comme nts LIPID REFLEX TO Routine 02/25/2015 7:36 AM Encounter for Resul ts for this DIRECT LDL PANEL KITCHEN BATH DESIGNER routine adult health pro cedure are in examination without the resu lts abnormal findings section. GLUCOSE Routine 02/25/2015 7:36 AM Encounter for Results for this KITCHEN BATH DESIGNER routine adult health procedu re are in examination without the resu lts abnormal findings section. documented in this encounter Results Glucose (02/25/2015 7:36 AM KITCHEN BATH DESIGNER) P athologist Signature Glucose 78 70 - 99 [facility] mg/dL [facility] Specimen Anatomical Collection Method Collection Time Receive d Time (Source) Location / / Volume Laterality Blood specimen 02/25/2015 7:36 AM 015 7:41 (specimen) KITCHEN BATH DESIGNER AM KITCHEN BATH DESIGNER Jayson Lombardo MD LAB - BLOOD ORDERABLES Performing Organization Address City/[facility] Code Phon e Number [facility] [address] [place] [address] Lipid panel reflex to direct LDL (02/25/2015 7:36 AM KITCHEN BATH DESIGNER) [facility] Method Time Signature Cholesterol 151 <200 [place] mg/dL [facility] Triglycerides 58 <150 [place] mg/dL [facility] HDL Cholesterol 69 >49 mg/dL [facility] LDL Cholesterol 70 <100 [place] Calculated mg/dL [facility] Comment: Desirable: <100 mg/dl Non HDL Cholesterol 82 <130 mg/dL [facility] Specimen Anatomical Collection Method Collection Time Receive d Time (Source) Location / / Volume Laterality Blood specimen 02/25/2015 7:36 AM 015 7:41 (specimen) KITCHEN BATH DESIGNER AM KITCHEN BATH DESIGNER Jayson Lombardo MD LAB - BLOOD ORDERABLES Performing Organization Address City/[facility] Code Phon e Number [facility] [address] [place] [address] documented in this encounter Visit Diagnoses Diagnosis Encounter for routine adult health exami nation without abnormal findings - Primary Stye, left documented in this encounter Additional Health Concerns Assessment Noted Time PHQ-9 Depression Total Score: 4 01/26/2015 7:25 AM KITCHEN BATH DESIGNER documented as of this encounter Care Teams Recep Relationship Specialty Start Date End Date Jayson Lombardo MD PCP - General Family Practice 03/24/13 Jayson Lombardo MD PCP - Assigned PCP 08/12/14 05/17/18 Jayson Lombardo MD Assigned PCP 08/12/14 04/20/20 documented as of this encounter
--- OUTSIDE RECORDS SUMMARY | 2022-02-17 17:43 | XMS_ITS | Encounter Summary ---
:1990 Author Organization [facility] Address [address] [place] [address] Care Team Providers Name Role Phone Jayson Lombardo MD Primary Care Provider Unavailable Jayson Lombardo MD Unavailable Unavailable Jayson Lombardo MD Unavailable Unavailable Reason for Visit Reason Onset Date Comments Forms 02/26/2015 Annual Physical Veri ficiation Encounter Details Date Type Department Care Team Description 02/26/2015 Telephone [facility] Jayson Lombardo, Form s (Annual Physical Clinic [place] Verificiation) [address] [place] [phone] Social History Tobacco Use Types [...] them. Orders were placed up at the desk lieutenant for patient to machine pecan picker LVM stating is it ready to be picked up, then orders were sent to abstraction and a copy to [employer] folder at the station. Mel Ruggiero Purchasing Associate NING COORDINATOR documented in this encounter Plan of Treatment Not on filedocumented as of this encounter Visit Diagnoses Not on filedocumented in this encounter Additional Health Concerns Assessment Noted Time PHQ-9 Depression Total Score: 4 01/26/2015 7:25 AM PLANNING COORDINATOR documented as of this encounter Care Teams Antique Finisher Relationship Specialty Start Date End Date Jayson Lombardo MD PCP - General Family Practice 03/24/13 Jayson Lombardo MD PCP - Assigned PCP 08/12/14 05/17/18 Jayson Lombardo MD Assigned PCP 08/12/14 04/20/20 documented as of this encounter
--- OUTSIDE RECORDS SUMMARY | 2022-02-17 17:43 | XMS_ITS | Encounter Summary ---
:1990 Author Organization [facility] Address [address] [place] [address] Care Team Providers Name Role Phone Jayson Lombardo MD Primary Care Provider Unavailable Jayson Lombardo MD Unavailable Unavailable Jayosn Lombardo MD Unavailable Unavailable Reason for Visit Reason Onset Date Comments Forms 06/08/2016 [facility] rega ing Physical Examination Report Encounter Details Date Type Department Care Team Description 06/08/2016 Telephone [facility] Jayson Lombardo, Form s ([facility] [place] MD regarding [facility] [id number] [facility] [place] [address] Social History Tobacco Use Types [...] Lombardo and signed. Mailed the form to [employer], sent a copy to cece and Aretha stone. Mel Ruggiero Underground Repairer documented in this encounter Plan of Treatment Not on filedocumented as of this encounter Visit Diagnoses Not on filedocumented in this encounter Additional Health Concerns Assessment Noted Time PHQ-9 Depression Total Score: 9 09/12/2015 7:13 AM CDT documented as of this encounter Care Teams Government Services Professional Relationship Specialty Start Date End Date Jayson Lombardo MD PCP - General Family Practice 03/24/13 Jayson Lombardo MD PCP - Assigned PCP 08/12/14 05/17/18 Jayson Lombardo MD Assigned PCP 08/12/14 04/20/20 documented as of this encounter
--- OUTSIDE RECORDS SUMMARY | 2022-02-17 17:43 | XMS_ITS | Encounter Summary ---
:1990 Author Organization [facility] Address [address] [place] [address] Care Team Providers Name Role Phone Jayson Lombardo MD Primary Care Provider Unavailable Reason for Visit Reason Comments Physical Encounter Details Date Type Department Care Team Description 03/09/2014 Office Visit [facility] Jayson Lombardo Routine g eneral medical examination at a health care facility (Primary Dx); Clinic Roque Echeverria MD Abnormal uterine bleeding; [id number] [employer] CARDIOVASCULAR SCREENING; LD L GOAL LESS THAN [address] [place] [address] Social History Tobacco Use Types [...] Comments Blood Pressure 104/62 03/09/2014 8:55 AM FRAME WIRER Pulse 71 03/09/2014 8:55 AM FRAME WIRER Temperature 36.6 ??C (97.9 ??F) 03/09/2014 8:55 AM FRAME WIRER Respiratory Rate - - Oxygen Saturation - - Inhaled Oxygen Concentration - - Weight 48.9 kg (107 lb 14.4 oz) 03/09/2014 8:55 AM FRAME WIRER Height 170.2 cm (5' 7) 03/09/2014 8:55 AM FRAME WIRER Body Mass Index 16.9 03/09/2014 8:55 AM FRAME WIRER documented in this encounter Patient Instructions Patient [...] months for an exam and cleaning. E WIRER documented in this encounter Progress Notes Jayson [...] today All Histories reviewed and updated in [facility]. Past Medical History Diagnosis Date ??? [...] list, Allergies, and Medical/Social/Surgical histories reviewed in [facility] andupdated as appropriate. OBJECTIVE: BP 104/62 [...] and would like to do this with BOWLING ALLEY OPERATOR provider as she prefers female provider for [...] Preventive Guidelines Dietary Guidelines for Americans, 2010 [employer] Jayson Lombardo MD [facility] E WIRER documented in this encounter Nursing Notes Dary [...] regular right arm. Dary Stokes CMA E WIRER documented in this encounter Plan of Treatment Not on filedocumented as of this encounter Procedures Procedure Name Priority Date/Time Associated Diagnosis Comme nts LIPID REFLEX TO Routine 03/09/2014 9:16 AM Routine General Res ults for this DIRECT LDL PANEL FRAME WIRER Medical Examination proc edure are in [facility] the results Facility section. CARDIOVASCULAR SCREENING; LDL GOAL LESS THAN 160 GLUCOSE Routine 03/09/2014 9:16 AM Routine General Result s for this FRAME WIRER Medical Examination procedur e are in [facility] the results Facility section. documented in this encounter Results Glucose (03/09/2014 9:16 AM FRAME WIRER) athologist Signature Glucose 84 70 - 99 [facility] mg/dL LAB Comment: Effective 10/11/2013, the reference range for this assay has changed to reflect new instrumentation/methodology. Specimen Anatomical Collection Method Collection Time Receive d Time (Source) Location / / Volume Laterality Blood specimen 03/09/2014 9:16 AM 014 9:21 (specimen) FRAME WIRER AM FRAME WIRER Jayson Lombardo MD LAB - BLOOD ORDERABLES Performing Organization Address [facility] Code Phon e Number [address] [id number] [facility] Lipid panel reflex to direct LDL (03/09/2014 9:16 AM FRAME WIRER) athologist Signature Cholesterol 161 <200 mg/dL [facility] LAB Comment: LDL Cholesterol is the primary guide to therapy. The NCEP recommends further evaluation of: patients with cholesterol greater than 200 mg/dL if additional risk facto rs are present, cholesterol greater than 240 mg/dL, triglycerides greater than 1 50 mg/dL, or HDL less than 40 mg/dL. Triglycerides 69 0 - 150 mg/dL [facility] HDL Cholesterol 73 >50 mg/dL [facility] LDL Cholesterol Calculated 74 0 - 129 mg/dL [facility] LAB Comment: LDL Cholesterol is the primary guide to therapy: LDL-cholesterol goal in high risk patients is <100 mg/dL and in very high risk patients is <70 mg/dL. VLDL-Cholesterol 14 0 - 30 mg/dL [facility] Cholesterol/HDL Ratio 2.2 0.0 - 5.0 [facility] Specimen Anatomical Collection Method Collection Time Receive d Time (Source) Location / / Volume Laterality Blood specimen 03/09/2014 9:16 AM 014 9:21 (specimen) FRAME WIRER AM FRAME WIRER Jayson Lombardo MD LAB - BLOOD ORDERABLES Performing Organization Address City/[facility]/ZIP Code Phon e Number [address] [id number] [facility] documented in this encounter Visit Diagnoses Diagnosis Routine general medical examination at a health care facility - Primary Abnormal uterine bleeding Unspecified disorder of menstruation and other abnormal bleeding from female genital tract CARDIOVASCULAR SCREENING; LDL GOAL LESS THAN 160 documented in this encounter Care Teams Charter Representative Relationship Specialty Start Date End Date Jayson Lombardo MD PCP - General Family Practice 03/24/13 documented as of this encounter
--- OUTSIDE RECORDS SUMMARY | 2022-02-17 17:43 | XMS_ITS | Encounter Summary ---
:1990 Author Organization [facility] Address [address] [place] [address] Care Team Providers Name Role Phone Jayson Lombardo MD Primary Care Provider Unavailable Jayson Lombardo MD Unavailable Unavailable Reason for Visit NE[facility] Physical Therapy (Routine) - Closed Specialty Diagnoses / Procedures Referred By Contact Refer red To Contact Physical Therapist / Diagnoses L sciatica/ Irina Ibrahim @ [facility] in [place]/ [facility] Self, Referred, Gurvinder Cross, PT Physical Therapy Procedures SPINE INITIAL [address] [place], [place] [address] Phone: Fax: Referral ID Status Reason Start Date Expiration Date Visits Requ ested Visits Authorized [id number] Closed 01/31/2020 03/14/2020 40 40 Encounter Details Date Type Department Care Team Description 02/07/2020 Therapy Visit [facility] Gurvinder Gan, PT Chronic left-sided Rehabilitation Services [address] low back pain with [place] [address] left-sided sciatica [address] [place] [phone] Social History Tobacco Use Types Packs/Day Years Used Date Smoking Tobacco: Never Smokeless Tobacco: Never Alcohol Use Standard Drinks/Week Comments Yes 0 (1 standard drink = 0.6 oz pure alcoho l) Sex Assigned at Date Recorded Female 05/29/2020 7:33 PM CDT COVID-19 Exposure Response Date Recorded In the last month, have you been in contact with No / Unsure 02/07/2020 11:08 AM CHILD DEVELOPMENT SPECIALIST someone who was 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 documented as of this encounter Plan of Treatment Not on filedocumented as of this encounter Procedures Procedure Name Priority Date/Time Associated Diagnosis Comme nts RI NEUROMUSCULAR Routine 02/07/2020 11:48 AM Chronic left-side d REEDUCATION,1+ AREAS, EA CHILD DEVELOPMENT SPECIALIST low back pain wi th 15 MIN left-sided sciatica RI THERAPEUTIC EXERCISES. Routine 02/07/2020 11:48 AM Chronic left-sided EA 15 MIN CHILD DEVELOPMENT SPECIALIST low back pain with left-sided sciatica documented in this encounter Visit Diagnoses Diagnosis Chronic left-sided low back pain with le ft-sided sciatica documented in this encounter Additional Health Concerns Assessment Noted Time PHQ-9 Depression Total Score: 9 09/12/2015 7:13 AM CDT documented as of this encounter Care Teams Roof Bolting Coal Miner Relationship Specialty Start Date End Date Jayson Lombardo MD PCP - General Family Practice 03/24/13 Jayson Lombardo MD Assigned PCP 08/12/14 04/20/20 documented as of this encounter
--- OUTSIDE RECORDS SUMMARY | 2022-02-17 17:43 | XMS_ITS | Encounter Summary ---
:1990 Author Organization [facility] Address [address] [place] [address] Care Team Providers Name Role Phone Jayson Lombardo MD Primary Care Provider Unavailable Jayson Lombardo MD Unavailable Unavailable Jayson Lombardo MD Unavailable Unavailable Reason for Visit Reason Comments URI Encounter Details Date Type Department Care Team Description 04/19/2017 Office Visit [facility] Jayson Lombardo Viral URI (Primary Dx); Clinic Roque Echeverria MD Traveler's diarrhea [address] [place] [address] Social History Tobacco Use Types [...] Comments Blood Pressure 110/78 04/19/2017 9:42 AM LABORATORY EQUIPMENT INSTALLER Pulse 68 04/19/2017 9:42 AM LABORATORY EQUIPMENT INSTALLER Temperature 36.4 ??C (97.6 ??F) 04/19/2017 9:42 AM LABORATORY EQUIPMENT INSTALLER Respiratory Rate 14 04/19/2017 9:42 AM LABORATORY EQUIPMENT INSTALLER Oxygen Saturation 99% 04/19/2017 9:42 AM LABORATORY EQUIPMENT INSTALLER Inhaled Oxygen Concentration - - Weight 49.3 kg (108 lb 11.2 oz) 04/19/2017 9:42 AM LABORATORY EQUIPMENT INSTALLER Height 171.5 cm (5' 7.5) 04/19/2017 9:42 AM LABORATORY EQUIPMENT INSTALLER Body Mass Index 16.77 04/19/2017 9:42 AM LABORATORY EQUIPMENT INSTALLER documented in this encounter Progress Notes Jayson [...] stools per day. She recently traveled to [place]. Denies nausea, blood in stools. Problem list [...] behalf by Mer Avitia, a trained medical reception specialist. The creation of this document is based on the provider's statements to the medical reception specialist. Mer Avitia 9:55 AM April 19, 2017 [...] in this document, created by the medical reception specialist for me, accurately reflects the services I personally performed and the decisions made by me. I have reviewed and approved this document for accuracy prior to leaving the patient care area. April 19, 2017 10:09 AM Jayson Lombardo MD [facility] RATORY EQUIPMENT INSTALLER documented in this encounter Nursing Notes Stacey [...] Health Maintenance addressed: NONE N/a BULMARO Esteves RATORY EQUIPMENT INSTALLER documented in this encounter Plan of Treatment Not on filedocumented as of this encounter Visit Diagnoses Diagnosis Viral URI - Primary Acute upper respiratory infections of un specified site Traveler's diarrhea Infectious diarrhea documented in this encounter Additional Health Concerns Assessment Noted Time PHQ-9 Depression Total Score: 9 09/12/2015 7:13 AM CDT documented as of this encounter Care Teams Billet Header Relationship Specialty Start Date End Date Jayson Lombardo MD PCP - General Family Practice 03/24/13 Jayson Lombardo MD PCP - Assigned PCP 08/12/14 05/17/18 Jayson Lombardo MD Assigned PCP 08/12/14 04/20/20 documented as of this encounter
--- OUTSIDE RECORDS SUMMARY | 2022-02-17 17:43 | XMS_ITS | Encounter Summary ---
:1990 Author Organization [facility] Address [address] [place] [address] Care Team Providers Name Role Phone Jayson [...] with No / Unsure 01/31/2020 10:59 AM JET AIRCRAFT SERVICER someone who was 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 documented as of this encounter Plan of Treatment Not on filedocumented as of this encounter Visit Diagnoses Not on filedocumented in this encounter Additional Health Concerns Assessment Noted Time PHQ-9 Depression Total Score: 9 09/12/2015 7:13 AM CDT documented as of this encounter Care Teams Atm Servicer Relationship Specialty Start Date End Date Jayson Lombardo MD PCP - General Family Practice 03/24/13 Jayson Lombardo MD Assigned PCP 08/12/14 04/20/20 documented as of this encounter
--- OUTSIDE RECORDS SUMMARY | 2022-02-17 17:43 | XMS_ITS | Encounter Summary ---
:1990 Author Organization [facility] Address [address] [place] [address] Care Team Providers Name Role Phone Jayson Lombardo MD Primary Care Provider Unavailable Jayson Lombardo MD Unavailable Unavailable Jayson Lombardo MD Unavailable Unavailable Reason for Visit Reason Onset Date Comments Refill Request 02/17/2016 Encounter Details Date Type Department Care Team Description 02/17/2016 Telephone [facility] Jayson Lombardo Ra, MD Refill Request [place] [address] [place] [address] Social History Tobacco Use [...] discuss dosing PCP with provider at [facility]. Youth Pastor spoke with Pharm and reported error in [...] Last Office Visit with [facility], P or [facility] prescribing provider: 09/11/15 Next 5 appointments (look out 90 days) Feb 25, 2016 7:00 AM PHYSICAL with Jayson Lombardo MD [facility] [id number] [place] [phone] Last PHQ-9 score on record= PHQ-9 SCORE 09/11/2015 Total Score - Total Score 9 AST 26 03/24/2013 ALT 50 03/24/2013 ING WHEEL INSPECTOR documented in this encounter Plan of Treatment Not on filedocumented as of this encounter Visit Diagnoses Diagnosis Adjustment disorder with anxious mood - Primary Adjustment disorder with anxiety documented in this encounter Additional Health Concerns Assessment Noted Time PHQ-9 Depression Total Score: 9 09/12/2015 7:13 AM CDT documented as of this encounter Care Teams Tester/Lift Trucker Relationship Specialty Start Date End Date Jayson Lombardo MD PCP - General Family Practice 03/24/13 Jayson Lombardo MD PCP - Assigned PCP 08/12/14 05/17/18 Jayson Lombardo MD Assigned PCP 08/12/14 04/20/20 documented as of this encounter
--- OUTSIDE RECORDS SUMMARY | 2022-02-17 17:43 | XMS_ITS | Encounter Summary ---
:1990 Author Organization [facility] Address [address] [place] [address] Care Team Providers Name Role Phone Jayson Lombardo MD Primary Care Provider Unavailable Reason for Visit Reason Onset Date Comments Panel Management 06/09/2013 Encounter Details Date Type Department Care Team Description 06/09/2013 Telephone [facility] Jayson Lombardo Ra, MD Panel Management [place] [id number] [place] [phone] Social History Tobacco Use Types [...] has not read her mychart. Mel Ruggiero Svp Research & Ebusiness Operations Telephone Encounter - Kym Sanchez CMA - 06/09/2013 10:57 AM CDT Panel Management Review Date of last visit with a [facility] provider: unknown on 03/24/13. Date of next visit with a [facility] provider: None. Problem List Patient Active Problem [...] visit for pap. Type of outreach: Sent [employer] message. Questions for provider review: None Please indicate office visit, lab, MTM, or nurse appt if needed. Indicate fasting or not fasting. Kym Sanchez CMA Chart routed to Care Team . documented in this encounter Plan of Treatment Not on filedocumented as of this encounter Visit Diagnoses Not on filedocumented in this encounter Care Teams Arts And Crafts Instructor Relationship Specialty Start Date End Date Jayson Lombardo MD PCP - General Family Practice 03/24/13 documented as of this encounter
--- OUTSIDE RECORDS SUMMARY | 2022-02-17 17:43 | XMS_ITS | Encounter Summary ---
:1990 Author Organization [facility] Address [address] [place] [address] Care Team Providers Name Role Phone Jayson Lombardo MD Primary Care Provider Unavailable Jayson Lombardo MD Unavailable Unavailable Jayson Lombardo MD Unavailable Unavailable Reason for Visit Reason Onset Date Comments Panel Management 11/30/2014 pap reminder Encounter Details Date Type Department Care Team Description [facility] [place] reminder) [address] [place] [address] Social History Tobacco Use Types Packs/Day Years Used Date Smoking Tobacco: Never Smokeless Tobacco: Never Alcohol Use Standard Drinks/Week Comments Yes 0 (1 standard drink = 0.6 oz pure alcoho l) Sex Assigned at Date Recorded Female 05/29/2020 7:33 PM CDT documented as of this encounter Miscellaneous Notes Telephone Encounter - Eduar Jeff, [facility] - 11/30/2014 1:14 PM CDT Panel Management Review Date of last visit with a [facility] provider: Grupo on 02/17/2015. Date of next visit with a [facility] provider: None. Problem List Patient Active Problem [...] pap is needed. Type of outreach: Sent [employer] message. Questions for provider review: None Please indicate office visit, lab, MTM, or nurse appt if needed. Indicate fasting or not fasting. Eduar Jeff CMA Chart routed to pap needed . documented in this encounter Plan of Treatment Not on filedocumented as of this encounter Visit Diagnoses Not on filedocumented in this encounter Care Teams Aquatic Habitat Biologist Relationship Specialty Start Date End Date Jayson Lombardo MD PCP - General Family Practice 03/24/13 Jayson Lombardo MD PCP - Assigned PCP 08/12/14 05/17/18 Jayson Lombardo MD Assigned PCP 08/12/14 04/20/20 documented as of this encounter
--- OUTSIDE RECORDS SUMMARY | 2022-02-17 17:43 | XMS_ITS | Encounter Summary ---
:1990 Author Organization [facility] Address [address] [place] [address] Care Team Providers Name Role Phone Jayson [...] with No / Unsure 03/01/2020 11:02 AM CROSSBAR FRAME WIRER someone who was 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 documented as of this encounter Plan of Treatment Not on filedocumented as of this encounter Visit Diagnoses Not on filedocumented in this encounter Additional Health Concerns Assessment Noted Time PHQ-9 Depression Total Score: 9 09/12/2015 7:13 AM CDT documented as of this encounter Care Teams Reheater Relationship Specialty Start Date End Date Jayson Lombardo MD PCP - General Family Practice 03/24/13 Jayson Lombardo MD Assigned PCP 08/12/14 04/20/20 documented as of this encounter
--- OUTSIDE RECORDS SUMMARY | 2022-02-17 17:43 | XMS_ITS | Encounter Summary ---
:1990 Author Organization [facility] Address [address] [place] [address] Care Team Providers Name Role Phone Jayson Lombardo MD Primary Care Provider Unavailable Jayson Lombardo MD Unavailable Unavailable Reason for Visit NE[facility] Physical Therapy (Routine) - Closed Specialty Diagnoses / Procedures Referred By Contact Refer red To Contact Physical Therapist / Diagnoses L sciatica/ Irina Ibrahim @ [facility] in [place]/ [facility] Self, Referred, Gurvinder Cross, PT Physical Therapy Procedures SPINE INITIAL [address] [place], [place] [address] Phone: Fax: Referral ID Status Reason Start Date Expiration Date Visits Requ ested Visits Authorized [id number] Closed 01/31/2020 03/14/2020 40 40 Encounter Details Date Type Department Care Team Description 01/31/[address] Therapy [address] [facility] Gurvinder Gan, PT Chronic left-sided Rehabilitation Services [address] low back pain with [place] [address] left-sided sciatica [address] [place] [phone] Social History Tobacco Use Types Packs/Day Years Used Date Smoking Tobacco: Never Smokeless Tobacco: Never Alcohol Use Standard Drinks/Week Comments Yes 0 (1 standard drink = 0.6 oz pure alcoho l) Sex Assigned at Date Recorded Female 05/29/2020 7:33 PM CDT COVID-19 Exposure Response Date Recorded In the last month, have you been in contact with No / Unsure 01/31/2020 10:59 AM BRANCH OPERATIONS COORDINATOR someone who was 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 documented as of this encounter Progress Notes MitulGurvinder, PT - 01/31/2020 11:10 AM CST [facility] Initial Evaluation Subjective: Onset of left lumbar pain radiating into left lower extremity. Pt has a son who was born in March 2019 and is doing a lot of lifting and carrying which aggravates the back. Previous treatment has consisted of chiropractic adjustments and over the count anti-inflammatory medication. The history is provided by the patient. No coding and reimbursement specialist was used. Therapist Generated HPI Evaluation Type [...] Right: Minimal loss Rotation: Left: Right: Side [place]: Left: Right: Strength: weak lower abdominals and [...] Sheet for this information) Short term and USP goals: (See Goal Flow Sheet for this [...] and time spent performing 1:1 timed codes. CH OPERATIONS COORDINATOR Lavonne Mcpherson PTA - 01/31/2020 11:10 AM CST [facility] Initial Evaluation Subjective: Patient Health History Pertinent medical history includes: migraines/headaches. Surgeries include: Other (Lung wedge resection (left,zoll)). 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 Objective: System Physical Exam General ROS Assessment/Plan: CH OPERATIONS COORDINATOR documented in this encounter Plan of Treatment Not on filedocumented as of this encounter Procedures Procedure Name Priority Date/Time Associated Diagnosis Comme nts [place] THERAPEUTIC Routine 01/31/2020 12:17 PM Chronic left-sided low EXERCISES. 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
--- OUTSIDE RECORDS SUMMARY | 2022-02-17 17:43 | XMS_ITS | Encounter Summary ---
:1990 Author Organization [place] Address [address] [place] [address] Care Team Providers Name Role Phone Jayson Lombardo MD Primary Care Provider Unavailable Jayson Lombardo MD Unavailable Unavailable Jayson Lombardo MD Unavailable Unavailable Reason for Visit Reason Comments Physical Encounter Details Date Type Department Care Team Description 02/25/2016 Office Visit [facility] Jayson Lombardo Encounter for routine adult health examination without abnormal findings (Primary Dx); Clinic Roque Echeverria MD Adjustment disorder with anx ious mood [address] [place] [address] Social History Tobacco Use Types [...] Comments Blood Pressure 110/64 02/25/2016 7:09 AM FEED GRINDER Pulse 74 02/25/2016 7:09 AM FEED GRINDER Temperature 36.9 ??C (98.4 ??F) 02/25/2016 7:09 AM FEED GRINDER Respiratory Rate - - Oxygen Saturation - - Inhaled Oxygen Concentration - - Weight 53 kg (116 lb 14.4 oz) 02/25/2016 7:09 AM FEED GRINDER Height 171.5 cm (5' 7.5) 02/25/2016 7:09 AM FEED GRINDER Body Mass Index 18.04 02/25/2016 7:09 AM FEED GRINDER documented in this encounter Patient Instructions Patient [...] months for an exam and cleaning. ?? GRINDER documented in this encounter Progress Notes Jayson [...] 58 [phone] 73 CHOLHDLRATIO -- 2.2 2.4 INDL 82 -- -- Reviewed orders with patient. Reviewed health maintenance and updated orders accordingly - Yes History of abnormal Pap smear: NO - age 21-29 PAP every 3 years recommended All Histories reviewed and updated in Psychiatric. Past Medical History Diagnosis Date ??? Mitral [...] list, Allergies, and Medical/Social/Surgical histories reviewed in [facility] andupdated as appropriate. OBJECTIVE: BP 110/64 [...] Prophylaxis Lung CA Screening Jayson Lombardo MD [facility] GRINDER documented in this encounter Nursing Notes Dary [...] kg). Dary Bautista CMA Health Maintenance- Reviewed. GRINDER documented in this encounter Plan of Treatment [...] documented as of this encounter Care Teams Complex Director Relationship Specialty Start Date End Date Jayson Lombardo MD PCP - General Family Practice 03/24/13 Jayson Lombardo MD PCP - Assigned PCP 08/12/14 05/17/18 Jayson Lombardo MD Assigned PCP 08/12/14 04/20/20 documented as of this encounter
--- OUTSIDE RECORDS SUMMARY | 2022-02-17 17:43 | XMS_ITS | Encounter Summary ---
:1990 Author Organization [place] Address [address] [place] [address] Care Team Providers Name Role Phone Jayson Lombardo MD Primary Care Provider Unavailable Jayson Lombardo MD Unavailable Unavailable Jayson Lombardo MD Unavailable Unavailable Reason for Visit Reason Comments Recheck Medication Encounter Details Date Type Department Care Team Description 09/11/2015 Office Visit [facility] Jayson Lombardo t disorder Clinic Roque Echeverria MD with anxious mood [address] [facility] (Primary Dx) [place] [address] Social History Tobacco Use Types [...] couple of months. Previously had improvement on Unbosdw05 mg. No significant side effects. Has stressors [...] 1 month or if doing well send [email or web address] message. Recommend continue medications for minimum 3-6 months and then consider decreased back to 10 mg if stable with decreasing stressors. - escitalopram (LEXAPRO) 20 MG tablet; Take 1 tablet (20 mg) by mouth daily Dispense: 30 tablet; Refill: 1 Jayson Lombardo MD [facility] documented in this encounter Nursing Notes Dary [...] documented as of this encounter Care Teams Tube Machine Operator Helper Relationship Specialty Start Date End Date Jayson Lombardo MD PCP - General Family Practice 03/24/13 Jayson Lombardo MD PCP - Assigned PCP 08/12/14 05/17/18 Jayson Lombardo MD Assigned PCP 08/12/14 04/20/20 documented as of this encounter
--- OUTSIDE RECORDS SUMMARY | 2022-02-17 17:44 | XMS_ITS | Encounter Summary ---
:1990 Author Organization [place] Address [address] [place] [address] Care Team Providers Name Role Phone Jayson Lombardo MD Primary Care Provider Unavailable Reason for Visit Reason Comments Triage Extreme lower ABD pain onset today after 1 week of slight ABD discomfort, sent to Urgency Room per Dr. Colon . Encounter Details Date Type Department Care Team Description 03/24/2013 Office Visit [facility] Urgent DIAGNO SIS NOT YET DEFINED Care (Primary Dx) [address] [place] [address] Social History Tobacco Use Types [...] Comments Blood Pressure 104/70 03/24/2013 7:16 PM PE ELECTRICAL ENGINEER Pulse 90 03/24/2013 7:16 PM PE ELECTRICAL ENGINEER Temperature 36.9 ??C (98.5 ??F) 03/24/2013 7:16 PM PE ELECTRICAL ENGINEER Respiratory Rate - - Oxygen Saturation 97% 03/24/2013 7:16 PM PE ELECTRICAL ENGINEER Inhaled Oxygen Concentration - - Weight 47.6 kg (105 lb) 03/24/2013 7:16 PM PE ELECTRICAL ENGINEER Height - - Body Mass Index 16.45 01/05/2013 8:06 AM CDT documented in this encounter Progress Notes Nidia Diaz MD - 04/28/2013 3:47 PM CST See nurse note ELECTRICAL ENGINEER documented in this encounter Nursing Notes 03/24/2013 [...] Primary documented in this encounter Care Teams Commodity Buyer Relationship Specialty Start Date End Date Jayson Lmobardo MD PCP - General Family Practice 03/24/13 documented as of this encounter
--- OUTSIDE RECORDS SUMMARY | 2022-02-17 17:44 | XMS_ITS | Encounter Summary ---
:1990 Author Organization [place] Address [address] [place] [address] Care Team Providers Name Role Phone Chela Servin PA-C Primary Care Provider Reason for Visit Reason Comments Shortness of Breath and left side discomfort x2 wks Encounter Details Date Type Department Care Team Description 11/05/[address] [facility] Jayson Lombardo SOB ([facility] MD Juwan breath) (Primary Dx) [address] [place] [address] Social History Tobacco Use Types [...] 11/05/2011 11:30 AM CDT >> [facility] Nov 05, 2011 11:40 AM Patient [...] breath documented in this encounter Care Teams Toll Service Observer Relationship Specialty Start Date End Date Aaseby-Chela Engel PA-C PCP - General Family Practice 08/05/10 03/23/13 [address] [place] [address] documented as of this encounter
--- OUTSIDE RECORDS SUMMARY | 2022-02-17 17:44 | XMS_ITS | Encounter Summary ---
:1990 Author Organization [place] Address [address] [place] [address] Care Team Providers Name Role Phone Chela Servin PA-C Primary Care Provider Reason for Visit Reason Comments Chest Pain Encounter Details Date Type Department Care Team Description 08/22/2012 Office Visit [facility] Jayson Lombardo Chest tahmina n (Primary Dx); Clinic [place] MD Juwan Heart palpitations; [address] [facility] MVP (mitral valve prolapse) [place] [address] Social History Tobacco Use Types [...] disorders documented in this encounter Care Teams Accountant Helper Relationship Specialty Start Date End Date Fidel-Chela Engel PA-C PCP - General Family Practice 08/05/10 03/23/13 [address] [place] [address] documented as of this encounter
--- OUTSIDE RECORDS SUMMARY | 2022-02-17 17:44 | XMS_ITS | Encounter Summary ---
:1989 Author Organization [place] Address [address] [place] [address]. [place] [address] Care Team Providers Name Role Phone Chela Servin PA-C Primary Care Provider Reason for Visit Reason Onset Date Comments ER F/U 12/19/2010 [facility] ED on 12/18/10 Encounter Details Date Type Department Care Team Description 12/19/2010 Telephone [facility] DOMONIQUE Servin F/U ([facility] ED on Clinic [place] Chela Contreras PA-C 12/18/10) [address] [facility] [address] [place] [address] Social History Tobacco Use Types [...] CST Pt had surgery Kym Sanchez CMA CLEANER STRE[address] LIGHT Telephone Encounter - Alvina Moreira - 12/19/2010 [...] on filedocumented in this encounter Care Teams Flexboard Operator Relationship Specialty Start Date End Date Chela Servin PA-C PCP - General Family Practice 08/05/10 03/23/13 [address] [place] [address] documented as of this encounter
--- OUTSIDE RECORDS SUMMARY | 2022-02-17 17:44 | XMS_ITS | Encounter Summary ---
:1990 Author Organization [place] Address [address] [place] [address]. [place] [address] Care Team Providers Name Role Phone Chela Servin PA-C Primary Care Provider [phone] Encounter Details Date Type Department Care Team Description 07/18/[address] [facility] Chela Servin PA-C [id number] [place] [phone] [place] [address] (Wo rk) Social History Tobacco [...] CDT Informed of prescription approval. Dagmar Godfrey Slasher Tender Telephone Encounter - Chela Servin PA-C - 07/18/2011 12:04 PM CDT Approved for 2 months and will need to follow-up for pap in August documented in this encounter Plan of Treatment Not on filedocumented as of this encounter Visit Diagnoses Diagnosis IRREGULAR MENSTRUATION - Primary Irregular menstrual cycle documented in this encounter Care Teams Cattle Killer Relationship Specialty Start Date End Date Chela Servin PA-C PCP - General Family Practice 08/05/10 03/23/13 [address] [place] [address] documented as of this encounter
--- OUTSIDE RECORDS SUMMARY | 2022-02-17 17:44 | XMS_ITS | Encounter Summary ---
:1990 Author Organization [place] Address [address] [place] [address]. [place] [address] Care Team Providers Name Role Phone Chela Servin PA-C Primary Care Provider Reason for Referral Office Workup No CT/MRI - Closed Specialty Diagnoses / Procedures Referred By Contact Refer red To Contact Diagnoses Spontaneous pneumothorax Jayson Lombardo MD [facility] [address] [address] [address] [place] [address] Phone: Fax: Referral ID Status Reason Start Date Expiration Date Visits Requ ested Visits Authorized [id number] Closed 12/12/2010 06/10/2011 1 1 Reason for Visit Reason Comments RECHECK finished antibiotic about 10 days ago and still coughing Encounter Details Date Type Department Care Team Description [facility]aneo [facility]orax (Primary Dx); Clinic Roque Echeverria MD Cough [address] [place] [address] Social History Tobacco Use Types [...] rhinorrhea then had cough. Was seen at [facility] - did not have x-ray and trial [...] completed using cuff size: regular Hilton Awan AZURE PRINCIPAL SOLUTION SPECIALIST documented in this encounter Plan of [...] Cough documented in this encounter Care Teams Coin Rolling Machine Operator Relationship Specialty Start Date End Date Fidel-Chela Engel PA-C PCP - General Family Practice 08/05/10 03/23/13 [address] [place] [address] documented as of this encounter
--- OUTSIDE RECORDS SUMMARY | 2022-02-17 17:44 | XMS_ITS | Encounter Summary ---
:1990 Author Organization [place] Address [address] [place] [address]. [place] [address] Care Team Providers Name Role Phone Chela Servin PA-C Primary Care Provider Reason for Visit Reason Comments Recheck Medication Headache Encounter Details Date Type Department Care Team Description 10/25/[address] [facility] SELINA Servin MENSTRUATION (Primary Dx); [facility] [place] Chela Contreras PA-C Need for Tdap vaccination; [address] [facility] [address] [facility] [place] [address] [id number] Social History Tobacco Use Types Packs/Day Years [...] without talking to your doctor or health home care associate. Do not take your medicine moreoften than directed. Talk to your manager lighting regarding the use of this medicine in children. Special care may be needed. Overdosage: If you think you have taken too much of this medicine contact a poison control center [facility] room at once. NOTE: This medicine [...] as dexfenfluramine, dextroamphetamine, fenfluramine, or sibutramine ?? [place]'s wort This list may not describe all [...] should report to your doctor or health home care associate as soon as possible: ?? allergic reactions [...] attention (report to your doctor or health home care associate if they continue or are bothersome): ?? drowsiness ?? feeling warm, flushing, or redness of the face ?? muscle pain or cramps ?? nausea, vomiting, diarrhea or stomach upset ?? weak or tired This list may not describe all possible side effects. Call your doctor for medical advice about sideeffects. You may report side effects to FDA at 2-868-QXA-8715. Where should I keep my medicine? Keep [...] QUESTIONNAIRE See Patient Instructions NATHANIEL MerchantC, [facility] documented in this encounter Nursing Notes [...] completed using cuff size: regular Hilton Sanchez PHOTOGRAPH PRINTER documented in this encounter Plan of Treatment Not on filedocumented as of this encounter Procedures Procedure Name Priority Date/Time Associated Diagnosis Comme nts MIGRAINE QUESTIONNAIRE Routine 10/25/2012 8:26 AM CDT Migraine s documented in this encounter Visit Diagnoses Diagnosis IRREGULAR MENSTRUATION - Primary Irregular menstrual cycle Need for Tdap vaccination Need for prophylactic vaccination with c ombined hoplrprbmk-dbecglj-ldwjxcivt (DTP) vaccine Migraines Migraine, unspecified, without mention o f intractable migraine without mention of status migrainosus documented in this encounter Care Teams Heart Doctor Relationship Specialty Start Date End Date Chela Servin PA-C PCP - General Family Practice 08/05/10 03/23/13 [address] [place] [address] documented as of this encounter
--- OUTSIDE RECORDS SUMMARY | 2022-02-17 17:44 | XMS_ITS | Encounter Summary ---
:1990 Author Organization [place] Address [address] [place] [address]. [place] [address] Care Team Providers Name Role Phone Chela Servin PA-C Primary Care Provider Reason for Visit Reason Onset Date Comments Refill Request 08/10/2012 Encounter Details Date Type Department Care Team Description 08/10/2012 Refill [facility] Chela Servin Refill Request [place] RENÉ Contreras [address] [facility] [address] [place] [phone] [place] [address] (Wo rk) Social History Tobacco [...] cycle documented in this encounter Care Teams Looping Machine Operator Relationship Specialty Start Date End Date Chela Servin PA-C PCP - General Family Practice 08/05/10 03/23/13 [address] [place] [address] documented as of this encounter
--- OUTSIDE RECORDS SUMMARY | 2022-02-17 17:44 | XMS_ITS | Encounter Summary ---
:1989 Author Organization [place] Address [address] [place] [address] Care Team Providers Name Role Phone Olivia Moreno MD Primary Care Provider Reason for Visit Reason Onset Date Comments Medication Request 07/04/2010 AVIANE 0.1-20 MG-MCG PO TABS Encounter Details Date Type Department Care Team Description 07/04/2010 Telephone [facility] Olivia Moreno MD Medication Request Clinic On license of [facility] (AVIANE 0.1-20 MG-MCG [address] [facility] PO TABS) [address] [phone] [place] [address] (Wo rk) Social History Tobacco [...] in July. Ok to refill 1 month? [facility] in [place]. Please route back to me if script [...] a appointment when she returns home from [facility] in july. She uses the [facility] pharmacy. Patient can be reached at [phone]. Last office visit:03/11/2009 Last refill:09/09/2009. Dagmar Godfrey Broach Trouble Shooter documented in this encounter Plan of Treatment Not on filedocumented as of this encounter Visit Diagnoses Diagnosis IRREGULAR MENSTRUATION - Primary Irregular menstrual cycle documented in this encounter Care Teams Assisted Living Coordinator Relationship Specialty Start Date End Date Olivia Moreno MD PCP - General 09/19/03 08/04/[address] [address] documented as of this encounter
--- OUTSIDE RECORDS SUMMARY | 2022-02-17 17:44 | XMS_ITS | Encounter Summary ---
:1990 Author Organization [place] Address [address] [place] [address] Care Team Providers Name Role Phone Chela Servin PA-C Primary Care Provider Jayson Lombardo MD Primary Care Provider Unavailable Jayson Lombardo MD Unavailable Unavailable Jayson Lombardo MD Unavailable Unavailable Encounter Details Date Type Department Care Team Description 08/23/2012 Historic Results [facility] Heart Unknown, [address] [address] Social History Tobacco Use Types [...] on filedocumented in this encounter Care Teams Dental Coordinator Relationship Specialty Start Date End Date Chela Servin, PCP - General Family Practice 08/05/10 03/23/13 REN[address] [place] [address] Jayson Lombardo MD PCP - General Family Practice 03/24/13 Jayson Lombardo MD PCP - Assigned PCP 08/12/14 05/17/18 Jayson Lombardo MD Assigned PCP 08/12/14 04/20/20 documented as of this encounter
--- OUTSIDE RECORDS SUMMARY | 2022-02-17 17:44 | XMS_ITS | Encounter Summary ---
:1990 Author Organization [place] Address [address] [place] [address] Care Team Providers Name Role Phone Chela Servin PA-C Primary Care Provider [phone] Reason for Visit (Routine) - Closed Specialty Diagnoses / Procedures Referred By Contact Refer red To Contact Radiology / Radiology. Diagnoses R#N/A,Epic,no creat,sb pt. Rh Ct Scan Procedures CT CHEST W [address] [place] [address] Phone: Fax: Referral ID Status Reason Start Date Expiration Date Visits Requ ested Visits Authorized [id number] Closed 02/07/2013 02/07/2014 1 1 Encounter Details Date Type Department Care Team Description 02/08/2013 Hospital Encounter [facility] Jayson Lombardo Dys pnea; Arleen Echeverria MD Pleuritic chest pain [address] [place] [address] Social History Tobacco Use Types [...] Scan, Non-Provider - 02/13/2013 6:52 AM CST MOTIVE ENGINEERING TECHNICIAN documented in this encounter Plan of Treatment Not on filedocumented as of this encounter Procedures Procedure Name Priority Date/Time Associated Diagnosis Comme nts CT CHEST W CONTRAST Routine 02/08/2013 5:04 PM Dyspnea Results for this AUTOMOTIVE ENGINEERING TECHNICIAN Pleuritic chest pain procedu re are in the results section. documented in this encounter Results CT Chest w Contrast (02/08/2013 5:04 PM AUTOMOTIVE ENGINEERING TECHNICIAN) Anatomical Region Laterality Modality Chest, SUBRAD CT BODY, UMP CT CHEST Comp uted Tomography Specimen (Source) Anatomical Location Collection Method / Collectio n Time Received Time / Laterality Volume Impressions 02/08/2013 7:58 PM AUTOMOTIVE ENGINEERING TECHNICIAN IMPRESSION: 1. ??No evidence of pulmonary embolism. ??Thoracic aorta is unremarkable. 2. ??Lungs are clear. ??No enlarged lymp h nodes. NANY CORDERO MD Narrative 02/08/2013 7:58 PM AUTOMOTIVE ENGINEERING TECHNICIAN CT CHEST WITH CONTRAST 02/08/2013 5:04 PM [...] iopamidol (ISOVUE-370) 76% Given 02/08/2013 5:02 PM AUTOMOTIVE ENGINEERING TECHNICIAN 67 mLs solution 500 mL 500 mL, Intravenous, ONCE, On Wed02/08/13 at 1700, For 1 dose sodium chloride 0.9 % BOLUS 1,000 mL New Bag 02/08/2013 5:02 PM AUTOMOTIVE ENGINEERING TECHNICIAN 75 mLs Intravenous, 1,000 mL, ONCE, On Wed02/08/13 at 1700, For 1 dose documented in this encounter Care Teams Ball Warper Tender Relationship Specialty Start Date End Date Aasebjose-Chela Engel PA-C PCP - General Family Practice 08/05/10 03/23/13 [address] [place] [address] documented as of this encounter
--- OUTSIDE RECORDS SUMMARY | 2022-02-17 17:44 | XMS_ITS | Encounter Summary ---
:1990 Author Organization [place] Address [address] [place] [address]. [place] [address] Care Team Providers Name Role Phone Chela Servin PA-C Primary Care Provider [phone] Reason for Visit Auth/Cert - Closed Specialty Diagnoses / Procedures Referred By Contact Refer red To Contact Surgery Diagnoses Left Pneumothorax Sh Periop Services Procedures THORACOSCOPIC WEDGE RESECTION LUNG [address] [place] [address] Phone: Referral ID Status Reason Start Date Expiration Date Visits Requ ested Visits Authorized [id number] Closed 12/19/2010 06/17/2011 1 1 Encounter Details Date Type Department Care Team Description 12/20/2010 - [facility] Demetris Raymond 12/23/2010 Encounter Chino Rayo MD [facility] [place] [facility] [address] [place] [address] [address] [place] [address] Social [...] left video-assisted thoracoscopy with apical blebectomy at [facility]. HOSPITAL COURSE: John George is a [...] as Name: JOHN GEORGE MRN: [id number] Account: [id number] : 1990 Admit Date: [id number] Discharge Date: 12/23/2010 Document: [id number] documented in this encounter Discharge Instructions Discharge [...] Demetris Raymond MD - 02/06/2011 2:23 PM DIE TESTER TESTER Constance Duval PA-C - 12/23/2010 8:59 AM [...] Small apical ptx Satisfactory DEMETRIS RAYMOND MD [facility] ONCOLOGY THORACIC SURGERY CELL: OFFICE: documented [...] Demetris Raymond MD - 02/06/2011 2:19 PM DIE TESTER TESTER documented in this encounter Miscellaneous Notes Plan [...] Individualization/Patient-Specific Goal (Adult,OB,Behavioral The patient and/or their apprenticeship representative will achieve their patient-specific goals related [...] Individualization/Patient-Specific Goal (Adult,OB,Behavioral The patient and/or their apprenticeship representative will achieve their patient-specific goals related [...] Individualization/Patient-Specific Goal (Adult,OB,Behavioral The patient and/or their apprenticeship representative will achieve their patient-specific goals related [...] Individualization/Patient-Specific Goal (Adult,OB,Behavioral The patient and/or their apprenticeship representative will achieve their patient-specific goals related to the plan of care. The patient-specific goals include: RN: 12/20/10 Left video assisted thorascopy with apical blebectomy Outcome: Improving Patient tolerated diet, ambulates to bathroom well and sat in chair x2 with S.B.A. Provider Notification - Sangeetha Maritnez RN - 12/20/2010 6:[address] [...] examination was normal. Using multiple applications of [place] 45 mm stapling device, a blebectomywas performed. [...] EM#[id number] Name: JOHN GEORGE MRN: [id number] Account: [id number] : 1990 Procedure Date: 12/20/2010 Document: [id number] Brief Op Note - Demetris Raymond MD - 12/20/2010 9:45 AM CDT [facility] Thoracic Surgery Brief Operative Note Pre-operative [...] apical pneumothor ax unchanged. Demetris Raymond MD [facility] X-ray Chest 1 [...] tiny. 2. Clear lungs. Demetris Raymond MD [facility] X-ray Chest 1 [...] left apical pneumothor ax. Demetris Raymond MD [facility] X-ray Chest 1 [...] emphysema on the left. Demetris Raymond MD [facility] Surgical pathology exam (12/20/2010 9:27 AM CDT) Component Value Ref Test Analysis Performed At [facility] Range Method Time Signature Copath Report Patient Name: JOHN GEORGE MR#: [id number] Specimen #: [id number] Collected: 12/20/2010 Received: 12/20/2010 Reported: 12/23/2010 14:50 [...] throughout. ??N o lesions are identified grossly. ??Private Branch Exchange Operator sections are submitted. ??SI ??TRS/tw Cassettes 1-2. ??Bisected bleb. 3-4. ??Uninvolved lung parenchyma. MICROSCOPIC: A formal microscopic examination is performed. BCT/ls 12/23/2010 TESTING LAB LOCATION: [facility] [address] [facility] [place] ??[id number] COLLECTION SITE: Client: [facility] Location: SH33 (S) Specimen Anatomical Collection Method Collection Time Receive d Time (Source) Location / / Volume Laterality 12/20/2010 9:27 AM 1 CDT 12:13 PM CDT Demetris Raymond MD LAB - BEAKER AP Performing Organization Address City/State/ZIP Code Phon e Number [facility] Hemoglobin (12/20/2010 8:12 AM CDT) P athologist Signature Hemoglobin 12.3 11.7 - 15.7 [place] g/dL [facility] Specimen Anatomical Collection Method Collection Time Receive d Time (Source) Location / / Volume Laterality Blood specimen 12/20/2010 8:12 AM 011 8:15 (specimen) CDT AM CDT Demetris Raymond MD LAB - BLOOD ORDERABLES Performing Organization Address City/State/ZIP Code Phon e Number [facility] [address] [place] [address] [phone] [facility] documented in this encounter Visit [...] on 12/20/10 at 1221, Hold while on MANAGER SECURITY., Post-procedure Given 12/20/2010 9:35 PM CDT 0.4 [...] on 12/20/10 at 1221, Hold while on MANAGER SECURITY., Post-procedure Given 12/21/2010 4:00 AM CDT 10 [...] Marinelli RN - Comment: would not scan)1600 (z Missed (do not use) - Provider: Malu Casillas - Reason: Other - Comment: dressing change not done) 1129 (Given - Provider: Glory Arreola RN - Comment: waited for Ibuprofen to take effect)1600 (z Missed (do not use) - Provider: Vira Pappas - Reason: Other - Comment: dressing already changed today) 0900 (z Missed (do not use) - Provider: Glory Arreola RN - Reason: Other - Comment: ct removed, occlusive dressing in place) Topical, 3 TIMES DAILY, First dose on Sa t 12/20/10 at 1600, At bedside for TID PRN dressing change by MD., Post-procedure 2200 (z Missed (do not use) - Provider: Sangeetha Martinez RN - Reason: Other - Comment: dressing change already done for day) 2200 (z Missed (do not use) - Provider: Sangeetha Martinez RN - Reason: Other - Comment: dressing already chaged) ceFAZolin (ANCEF) 1 g vial to attach to IVPB (COMPLETE D) 0344 (New Bag - Provider: Aspen Tom, MALLORY) 1 g, Intravenous, for 30 Minutes, EVERY 8 HOURS, First dose on 12/20/10 at 1800, For 2 doses ketorolac (TORADOL) injection 30 mg (COMPLETED) 0344 ( Given - Provider: Aspen oTm, RN)0912 (Given - Provider: Lizbet Marinelli RN)1707 [...] MG per tablet 1-2 tablet (CANCELED) 0900 (z Missed (do not use) - Provider: Lizbet Marinelli RN - Reason: Patient/family refused)1842 (Given - Provider: Malu Casillas)2100 (z Missed (do not use) - Provider: Sangeetha Martinez RN - Reason: [...] 0.9 % flush 3 mL (CANCELED) 0515 (z Mi ssed (do not use) - Provider: Aspen Tom RN - Reason: IV Infusing)1344 (Given - Provider: Lizbet Marinelli RN)2200 (Given - Provider: Oscar Grimes) 0515 (Canceled Entry)1315 (Given - Provider: Glory Arreola RN)2115 (z Missed (do not use) - Provider: Sangeetha Martinez RN - Reason: Loss of IV access) 0515 (z Missed (do not use) - Provider: Rosario Klein RN - Reason: [...] MALLORY) 0951 (Given - Provider: Glory Arreola, RN) 10 mg, Rectal, DAILY PRN, constipation, Starting 12/20/10 at 1221, Hold for loose stools. This is the third step of a three step constipation treatment protocol., Post-procedure hydrocodone-acetaminophen 5-325 MG per tablet 1-2 tabl et 1554 (Given - Provider: Malu Casillas)2159 (Given - Provider: Oscar Grimes) 0655 (Given - Provider: Marine Burris, MALLORY)1333 (Given - Provider: Glory Arreola, MALLORY)2007 (Given - Provider: Vira Pappas) 0207 (Given - Provider: Rosario martines, MALLORY)0815 (Given - Provider: Glory Arreola, MALLORY) 1-2 tablet, Oral, EVERY 6 HOURS PRN, mod erate to severe pain, Starting 12/21/10 at 1324, autosub for vicodin HYDROmorphone (DILAUDID) injection 0.2-0.4 mg (CANCELE D) 1309 (Given - Provider: Lizbet Marinelli, MALLORY) 0.2-0.4 mg, Intravenous, EVERY 30 MIN WI N, Starting 12/20/10 at 1221, Until Tu12/23/10 at 1526, severe pain, or if patient unable to take PO, Post- procedure, Hold while on MANAGER SECURITY. ibuprofen (ADVIL,MOTRIN) tablet 600 mg 1842 (Given - Provide r: Malu Casillas) 0125 (Given - Provider: Anna Lane RN)1028 (Given - Provider: Glory Arreola RN)1645 (Given - Provider: Sangeetha Martinez, MALLORY)2253 (Given - Provider: Sangeetha Martinez, MALLORY) 0459 (Given - Provider: Rosario martines RN) 600 mg, Oral, EVERY 6 HOURS PRN, [...] Starting 12/20/10 at 1221, Hold while on MANAGER SECURITY., Post-procedure documented in this encounter Care Teams Mainframe Systems Programmer Relationship Specialty Start Date End Date Chela Servin PA-C PCP - General Family Practice 08/05/10 03/23/13 [address] [place] [address] documented as of this encounter
--- OUTSIDE RECORDS SUMMARY | 2022-02-17 17:44 | XMS_ITS | Encounter Summary ---
:1990 Author Organization [place] Address [address] [place] [address] Care Team Providers Name Role Phone Chela Servin PA-C Primary Care Provider [phone] Encounter Details Date Type Department Care Team Description 12/20/2010 Anesthesia Event [facility] Felipe Steve [place] PeriOP Ser vices MD [address] [facility], [address] [place] [phone] [phone] Anesthesia Record Procedure Summary Procedure Name Responsible [...] (Comment) (apex); Lynne Claros Diane D, 28 sAh Somers RN RN Incision/Surgical Site 12/20/10; 0934; [...] benefits and alternatives discussed with: patient or small business sales representative. . documented in this encounter Miscellaneous [...] Pre-procedure documented in this encounter Care Teams Computer Help Desk Specialist Relationship Specialty Start Date End Date Chela Servin PA-C PCP - General Family Practice 08/05/10 03/23/13 [address] [place] [address] documented as of this encounter
--- OUTSIDE RECORDS SUMMARY | 2022-02-17 17:44 | XMS_ITS | Encounter Summary ---
:1990 Author Organization [place] Address [address] [place] [address] Care Team Providers Name Role Phone Chela Servin PA-C Primary Care Provider [phone] Reason for Visit Reason Comments Cough Chest Pain Encounter Details Date Type Department Care Team Description 01/05/2013 Office Visit [facility] Jayson Lombardo Coug h (Primary Dx); Clinic [facility] [address] [place] [address] Social History Tobacco Use Types [...] fatigue and symptoms above. Jayson Lombardo MD [facility] documented in this encounter Nursing Notes [...] completed using cuff size: regular Hilton Awan LABOR ECONOMICS PROFESSOR documented in this encounter Plan of Treatment [...] Sodium 140 133 - 144 [facility] mmol/L [facility] Potassium 4.1 3.4 - 5.3 [facility] mmol/L [facility] Chloride 104 94 - 109 [facility] mmol/L [facility] Carbon Dioxide 26 20 - 32 [facility] mmol/L [facility] Anion Gap 10 6 - 17 [facility] mmol/L [facility] Glucose 67 60 - 99 [facility] mg/dL [facility] Urea Nitrogen 12 5 - 24 [facility] mg/dL [facility] Creatinine 0.87 0.52 - [facility] 1.04 mg/dL [facility] GFR Estimate 81 >60 [facility] mL/min/1.7 [facility] m2 GFR Estimate If >90 >60 [facility] Black mL/min/1.7 [facility] m2 Calcium 9.3 8.5 - 10.4 [facility] mg/dL [facility] Specimen Anatomical Collection Method Collection Time Receive d Time (Source) Location / / Volume Laterality Blood specimen 01/05/2013 8:37 AM 013 8:39 (specimen) CDT AM CDT Jayson Lombardo MD LAB - BLOOD ORDERABLES Performing Organization Address City/State/ZIP Code Phon e Number [facility] [address] [place] [address] TSH with free T4 reflex (01/05/2013 8:37 AM CDT) athologist Signature TSH 1.89 0.4 - 5.0 [facility] mU/L [place] Specimen Anatomical Collection Method Collection Time Receive d Time (Source) Location / / Volume Laterality Blood specimen 01/05/2013 8:37 AM 013 8:39 (specimen) CDT AM CDT Jayson Lombardo MD LAB - BLOOD ORDERABLES Performing Organization Address City/State/ZIP Code Phon e Number [facility] [address] [place] [address] [facility] [address] [place], [place] [address] CBC with platelets (01/05/2013 8:37 AM CDT) athologist Signature WBC 5.3 4.0 - 11.0 [facility] 10e9/L [facility] RBC Count 4.49 3.8 - 5.2 [facility] 10e12/L [facility] Hemoglobin 13.4 11.7 - [facility] 15.7 g/dL [facility] Hematocrit 39.4 35.0 - [facility] 47.0 % [facility] MCV 88 78 - 100 [facility] fl [facility] MCH 29.8 26.5 - [facility] 33.0 pg [facility] MCHC 34.0 31.5 - [facility] 36.5 g/dL [facility] RDW 12.2 10.0 - [facility] 15.0 % [facility] Platelet Count 153 150 - 450 [facility] 10e9/L [facility] Specimen Anatomical Collection Method Collection Time Receive d Time (Source) Location / / Volume Laterality Blood specimen 01/05/2013 8:37 AM 013 8:39 (specimen) CDT AM CDT Jayson Lombardo MD LAB - BLOOD ORDERABLES Performing Organization Address City/State/ZIP Code Phon e Number [facility] [address] [place] [address] documented in this encounter Visit Diagnoses Diagnosis Cough - Primary Fatigue Other malaise and fatigue documented in this encounter Care Teams Foundation Engineer Relationship Specialty Start Date End Date Fidel-Chela Engel PA-C PCP - General Family Practice 08/05/10 03/23/13 [address] [place] [address] documented as of this encounter
--- OUTSIDE RECORDS SUMMARY | 2022-02-17 17:44 | XMS_ITS | Encounter Summary ---
:1990 Author Organization [place] Address [address] [place] [address]. [place] [address] Care Team Providers Name Role Phone Chela Servin PA-C Primary Care Provider [phone] Reason for Visit Reason Onset Date Comments Other 12/10/2010 sick/ dx with pneumo waqar at school Encounter Details Date Type Department Care Team Description 12/10/[address] [facility] Any Servin (sick/ dx with Clinic [place] Chela Contreras PA-C pneumonia at school) [address] [facility] [address] [place] [address] Social History Tobacco Use Types [...] on filedocumented in this encounter Care Teams Home Weatherizing Worker Relationship Specialty Start Date End Date Chela Servin PA-C PCP - General Family Practice 08/05/10 03/23/13 [address] [place] [address] documented as of this encounter
--- OUTSIDE RECORDS SUMMARY | 2022-02-17 17:44 | XMS_ITS | Encounter Summary ---
:1990 Author Organization [place] Address [address] [place] [address]. [place] [address] Care Team Providers Name Role Phone Chela Servin PA-C Primary Care Provider Jayson Lombardo MD Primary Care Provider Unavailable Jayson Lombardo MD Unavailable Unavailable Jayson Lombardo MD Unavailable Unavailable Jayson Lombardo MD Unavailable Unavailable Reason for Visit Reason Onset Date Comments Outreach 02/01/2013 [facility] Encounter Details Date Type Department Care Team Description 02/01/2013 Telephone [facility] Danica Servin ([facility]) [place] Chela Contreras PA-C [address] [facility] [address] [place] [address] [place] [address] (Wo rk) Social History Tobacco [...] Attempt 1 Message on voicemail Comments: Outreach Manager Supply Chain MRL OHISTORIAN documented in this encounter Plan of Treatment Not on filedocumented as of this encounter Visit Diagnoses Not on filedocumented in this encounter Care Teams Smasher Hand Relationship Specialty Start Date End Date Chela Servin, PCP - General Family Practice 08/05/10 03/23/13 [place] [address] [place] [address] Jayson Lombardo MD PCP - General Family Practice 03/24/13 Jayson Lombardo MD PCP - Assigned PCP 08/12/14 05/17/18 Jayson Lombardo MD Assigned PCP 08/12/14 04/20/20 Jayson Lombardo MD Assigned PCP 06/16/20 2 documented as of this encounter
--- OUTSIDE RECORDS SUMMARY | 2022-02-17 17:44 | XMS_ITS | Encounter Summary ---
:1990 Author Organization [place] Address [address] [place] [address]. [place] [address] Care Team Providers Name Role Phone Chela Servin PA-C Primary Care Provider Reason for Visit Reason Comments Refill Request BC Encounter Details Date Type Department Care Team Description 09/10/[address] [facility] SELINA Servin MENSTRUATION [facility] [place] Chela Contreras PA-C (Primary Dx) [address] [facility] [id number] [place] [phone] [phone] Social History Tobacco Use Types Packs/Day Years [...] 09/10/2011 9:45 AM CDT >> SANDRA BONILLA [facility] Sep 10, 2011 9:57 AM Patient [...] cycle documented in this encounter Care Teams Cross Country Coach Relationship Specialty Start Date End Date Chela Servin PA-C PCP - General Family Practice 08/05/10 03/23/13 [address] [place] [address] documented as of this encounter
--- OUTSIDE RECORDS SUMMARY | 2022-02-17 17:44 | XMS_ITS | Encounter Summary ---
:1990 Author Organization [place] Address [address] [place] [address] Care Team Providers Name Role Phone Chela Servin PA-C Primary Care Provider Reason for Visit Reason Onset Date Comments Refill Request 08/05/2010 mattie Encounter Details Date Type Department Care Team Description 08/05/2010 Refill [facility] Olivia Moreno MD Refill Request (mattie) [address] [address] [place] [address] [phone] (Wo rk) Social History Tobacco Use Types Packs/Day Years Used Date Smoking Tobacco: Never Alcohol Use Standard Drinks/Week Comments No 0 (1 standard drink = 0.6 oz pure alcoho l) Sex Assigned at Date Recorded Female 05/29/2020 7:33 PM CDT documented as of this encounter Miscellaneous Notes Telephone Encounter - Kyalynn Herron - 08/05/2010 11:32 AM CDT Left message with pt to call back, pt needs appt prior to further refills, she was asked to schedulean appt 04-22-11. Kaylynn Herron RN documented in this encounter Plan of Treatment Not on filedocumented as of this encounter Visit Diagnoses Not on filedocumented in this encounter Care Teams Natural Gas Plant Technician Relationship Specialty Start Date End Date Chela Servin PA-C PCP - General Family Practice 08/05/10 03/23/13 [address] [place] [address] documented as of this encounter
--- OUTSIDE RECORDS SUMMARY | 2022-02-17 17:44 | XMS_ITS | Encounter Summary ---
:1990 Author Organization [place] Address [address] [place] [address]. [place] [address] Care Team Providers Name Role Phone Chela Servin PA-C Primary Care Provider [phone] Reason for Visit Reason Onset Date Comments Refill Request 07/21/2011 [facility] Encounter Details Date Type Department Care Team Description 07/21/2011 [facility] Malathi Refill Request [place] Chela Contreras PA-C (LESSINA-28) [address] [phone] [place] [address] (Wo rk) Social History Tobacco [...] cycle documented in this encounter Care Teams Hot Top Liner Helper Relationship Specialty Start Date End Date Chela Servin PA-C PCP - General Family Practice 08/05/10 03/23/13 [address] [place] [address] documented as of this encounter
--- OUTSIDE RECORDS SUMMARY | 2022-02-17 17:44 | XMS_ITS | Encounter Summary ---
:1990 Author Organization [facility] Address [address] [place] [address]. [place] [address] Care Team Providers Name Role Phone Chela Servin PA-C Primary Care Provider Reason for Visit Auth/Cert - Closed Specialty Diagnoses / Procedures Referred By Contact Refer red To Contact Surgery Diagnoses Left Pneumothorax Sh Periop Services Procedures THORACOSCOPIC WEDGE RESECTION LUNG [address] [place] [phone] Phone: Referral ID Status Reason Start Date Expiration Date Visits Requ ested Visits Authorized [id number] Closed 12/19/2010 06/17/2011 1 1 Encounter Details Date Type Department Care Team Description 12/20/2010 Surgery [facility] Demetris Raymond Left Vid eo Assisted [place] PeriOP MD [place] Thoracoscopy, Apical Services [place] [facility] Blebectomy [address], [address] [place] [phone] [place] [id number] (Wo rk) Surgery Details Date/Time Status Location [...] left video-assisted thoracoscopy with apical blebectomy at [facility]. HOSPITAL COURSE: John George is [...] GUERRIER MT: as Name: JOHN GEORGE Account: [id number] : 1990 Admit Date: [id number] Discharge Date: 12/23/2010 Document: [id number] documented in this encounter Discharge Instructions Discharge [...] Demetris Raymond MD - 02/06/2011 2:23 PM DIRECTOR PEDIATRIC CTOR PEDIATRIC Constance Duval PA-C - 12/23/2010 8:59 AM [...] Small apical ptx Satisfactory DEMETRIS RAYMOND MD [facility] ONCOLOGY THORACIC SURGERY CELL: OFFICE: documented in [...] Demetris Raymond MD - 02/06/2011 2:19 PM DIRECTOR PEDIATRIC CTOR PEDIATRIC documented in this encounter Miscellaneous Notes Plan [...] Individualization/Patient-Specific Goal (Adult,OB,Behavioral The patient and/or their unit support representative will achieve their patient-specific goals related [...] Individualization/Patient-Specific Goal (Adult,OB,Behavioral The patient and/or their unit support representative will achieve their patient-specific goals related [...] Individualization/Patient-Specific Goal (Adult,OB,Behavioral The patient and/or their unit support representative will achieve their patient-specific goals related [...] Individualization/Patient-Specific Goal (Adult,OB,Behavioral The patient and/or their unit support representative will achieve their patient-specific goals related [...] examination was normal. Using multiple applications of Henriette 45 mm stapling device, a blebectomywas performed. [...] EM#[id number] Name: JOHN GEORGE MRN: [id number] Account: [id number] : 1990 Procedure Date: 12/20/2010 Document: [id number] Brief Op Note - Demetris Raymond MD - 12/20/2010 9:45 AM CDT [facility] Thoracic Surgery Brief Operative Note [...] apical pneumothor ax unchanged. Demetris Raymond MD [facility] DIAGNOSTIC IMAGING ORDER BITA X-ray Chest [...] tiny. 2. Clear lungs. Demetris Raymond MD [facility] DIAGNOSTIC IMAGING ORDER BITA X-ray Chest [...] left apical pneumothor ax. Demetris Raymond MD [facility] DIAGNOSTIC IMAGING ORDER BITA X-ray Chest [...] emphysema on the left. Demetris Raymond MD [facility] DIAGNOSTIC IMAGING ORDER BITA Surgical pathology exam (12/20/2010 9:27 AM CDT) Component Value Ref Test Analysis Performed At [facility] Range Method Time Signature Copath Report Patient Name: JOHN GEORGE MR#: [id number] Specimen #: [id number] Collected: 12/20/2010 Received: 12/20/2010 Reported: 12/23/2010 14:50 [...] throughout. ??N o lesions are identified grossly. ??Rn Digestive sections are submitted. ??SI ??TRS/tw Cassettes 1-2. ??Bisected bleb. 3-4. ??Uninvolved lung parenchyma. MICROSCOPIC: A formal microscopic examination is performed. BCT/ls 12/23/2010 TESTING LAB LOCATION: [address] ??[id number] COLLECTION SITE: Client: [facility] Location: [facility] (S) Specimen Anatomical Collection Method Collection Time Receive d Time (Source) Location / / Volume Laterality 12/20/2010 9:27 AM 1 CDT 12:13 PM CDT Demetris Raymond MD LAB - BEAKER AP Performing Organization Address City/[facility] Phon e Number COPATH Hemoglobin (12/20/2010 8:12 AM CDT) P athologist Signature Hemoglobin 12.3 11.7 - 15.7 [place] g/dL [facility] LAB Specimen Anatomical Collection Method Collection Time Receive d Time (Source) Location / / Volume Laterality Blood specimen 12/20/2010 8:12 AM 011 8:15 (specimen) CDT AM CDT Demetris Raymond MD LAB - BLOOD ORDERABLES Performing Organization Address City/[facility]/ZIP Code Phon e Number [place] [address] [place] [address] [facility] documented in this encounter Visit [...] TID PRN dressing change by , Post-procedure 2200 (z Missed (do not use) - Provider: Sangeetha Martinez RN - Reason: Other - Comment: dressing change already done for day) 2200 (z Missed (do not use) - Provider: Sangeetha Martinez RN - Reason: Other - Comment: dressing already chaged) ceFAZolin (ANCEF) 1 g vial to attach to IVPB (COMPLETE D) 0344 (New Bag - Provider: Aspen Tom RN) 1 g, Intravenous, for 30 Minutes, EVERY 8 HOURS, First dose on 10/8/11 at 1800, For 2 doses ketorolac (TORADOL) [...] Glory Arreola RN)2117 (Given - Provider: Sangeetha Martinez, MALLORY) 0950 (Given - Provider: Glory Arreola RN) [...] Entry)1315 (Given - Provider: Glory Arreola, MALLORY)2115 (z Missed (do not use) - Provider: [...] MALLORY) 0.2-0.4 mg, Intravenous, EVERY 30 MIN OR N, Starting 12/20/10 at 1221, Until Tu12/23/10 at 1526, severe pain, or if patient unable to take PO, Post- procedure, Hold while on TEST DRIVER. ibuprofen (ADVIL,MOTRIN) tablet 600 mg 1842 (Given - Provide r: Malu Casillas) 0125 (Given - Provider: Anna Lane RN)1028 (Given - Provider: Glory Arreola RN)1645 (Given - Provider: Sangeetha Martinez RN)2253 (Given - Provider: Sangeetha Martinez RN) 0459 (Given - Provider: Rosario martines RN) [...] Starting 12/20/10 at 1221, Hold while on TEST DRIVER., Post-procedure documented in this encounter Care Teams Assisted Living Coordinator Relationship Specialty Start Date End Date Chela Servin PA-C PCP - General Family Practice 08/05/10 03/23/13 [address] [place] [address] documented as of this encounter
--- OUTSIDE RECORDS SUMMARY | 2022-02-17 17:44 | XMS_ITS | Encounter Summary ---
:1990 Author Organization [facility] Address [address] [place] [address] Care Team Providers Name Role Phone Chela Servin PA-C Primary Care Provider Reason for Visit Reason Comments Shortness of Breath pneumothorax x2mos increased SOB cough Encounter Details Date Type Department Care Team Description 12/18/2010 [facility] letty Gardner MD Pneumothorax Emergency Dept [facility] [address] [place] [address] [place] [address] (Wo rk) Social History Tobacco Use Types [...] breath -- Weakness, dizziness or fainting ?? [phone] [facility], [address] [place] [address]. All rights reserved. This information is not [...] at this time. Will continue to evaluate. Victroino Tay RN - 12/18/2010 4:51 PM CDT [...] She came to see the doctor at [facility] six days ago for a cold [...] patient and consent for procedure wasobtained. Timeout: [place] protocol was followed. TIME OUT conducted just [...] obtained to the pleural cavity. A 16 faroese chest tube was placed and connected to [...] and alternatives were discussed with Patient. Timeout: [place] protocol was followed. TIME OUT conducted prior [...] small left pleural effusion. Leandro Bernard MD [facility] IMAGING ORDER BITA Chest XR, PA [...] hydropneumothorax. Dr. Bernard aware. Leandro Bernard MD [facility] ORDER BITA documented in this [...] Guille documented in this encounter Care Teams Engine Generator Assembler Relationship Specialty Start Date End Date Fidel-Chela Engel PA-C PCP - General Family Practice 08/05/10 03/23/13 [address] [place] [address] documented as of this encounter
--- OUTSIDE RECORDS SUMMARY | 2022-02-17 17:44 | XMS_ITS | Encounter Summary ---
:1990 Author Organization [facility] Address [address] [place] [address] Care Team Providers Name Role Phone Chela Servin PA-C Primary Care Provider [phone] Reason for Visit (Routine) - Closed Specialty Diagnoses / Procedures Referred By Contact Refer red To Contact Cardiology Diagnoses ECHO COMPLETE ADULT W/O CONTRAST Procedure Notes: HEART PALPITATIONS/MITRAL VALVE PROLAPSE Zz Rh Echocar diography Procedures RADIOLOGY [address] [place], [place] [address] Phone: Referral ID Status Reason Start Date Expiration Date Visits Requ ested Visits Authorized [id number] Closed 08/22/2012 08/22/2013 1 1 Encounter Details Date Type Department Care Team Description 08/23/2012 Hospital Encounter [facility] Jayson Correa, Cardiopulmonary [address] [place] [address] Social History Tobacco Use Types [...] encounter Results Echocardiogram (08/23/2012 10:00 AM CDT) [facility] Method Time Signature [facility] RADIOLOGY Interpretation Summary [...] on filedocumented in this encounter Care Teams Car Shifter Relationship Specialty Start Date End Date Fidel-Chela Engel PA-C PCP - General Family Practice 08/05/10 03/23/13 [address] [place] [address] documented as of this encounter
--- OUTSIDE RECORDS SUMMARY | 2022-02-17 17:44 | XMS_ITS | Encounter Summary ---
:1990 Author Organization [facility] Address [address] [place] [address]. [place] [address] Care Team Providers Name Role Phone Jayson Lombardo MD Primary Care Provider Unavailable Reason for Visit Reason Comments Abdominal Pain Encounter Details Date Type Department Care Team Description 03/24/2013 Emergency [facility] Emerita Bhatti Ab dominal pain [facility] Emergency Dep t (Primary Dx) [address] [place], [place] [address] [address] [facility] [phone] [address] [place] [address] (Wo rk) Social History Tobacco Use Types [...] Comments Blood Pressure 105/68 03/24/2013 10:00 PM BARREL MAKER Pulse 104 03/24/2013 7:43 PM BARREL MAKER Temperature 36.7 ??C (98.1 ??F) 03/24/2013 7:43 PM BARREL MAKER Respiratory Rate 16 03/24/2013 7:43 PM BARREL MAKER Oxygen Saturation 100% 03/24/2013 10:00 PM BARREL MAKER Inhaled Oxygen Concentration - - Weight - [...] directed by your doctor today. Before using [id number] medications, ask your doctor and make sure [...] if there is anything that worries you. EL MAKER documented in this encounter Medications at Time [...] CST Transported pt. To CT via stretcher. EL MAKER Emerita Bhatti MD - 03/24/2013 7:56 PM [...] statements to me. Emerita Bhatti MD 03/24/13 9158 EL MAKER Stacey Arellano, RN - 03/24/2013 7:44 PM CST Mid abdominal pain since having the stomach flu last week. Tonight pain sharply increased. States My intestines hurt and that her stool has been wierd today but not diarrhea. ABCs intact. Alert and oriented x 3. EL MAKER documented in this encounter Miscellaneous Notes Initial Assessments - Scan, Non-Provider - 03/28/2013 11:40 AM CST EL MAKER documented in this encounter Plan of Treatment Not on filedocumented as of this encounter Procedures Procedure Name Priority Date/Time Associated Comments Diagnosis CT ABDOMEN PELVIS W STAT 03/24/2013 9:12 PM Re sults for this CONTRAST BARREL MAKER procedure are i n the results section. HCG QUALITATIVE URINE STAT 03/24/2013 8:10 PM Results for this BARREL MAKER procedure are i n the results section. ROUTINE UA WITH STAT 03/24/2013 8:10 PM Result s for this MICROSCOPIC BARREL MAKER procedure are i n the results section. URINE CULTURE Routine 03/24/2013 8:10 PM Results for this BARREL MAKER procedure are i n the results section. CBC WITH PLATELETS & STAT 03/24/2013 8:00 PM R esults for this DIFFERENTIAL BARREL MAKER procedure are i n the results section. LIPASE STAT 03/24/2013 8:00 PM Results f or this BARREL MAKER procedure are i n the results section. COMPREHENSIVE STAT 03/24/2013 8:00 PM Results for this METABOLIC PANEL BARREL MAKER procedure ar e in the results section. documented in this encounter Results CT Abdomen Pelvis w Contrast (03/24/2013 9:12 PM BARREL MAKER) Anatomical Region Laterality Modality Abdomen/Pelvis, SUBRAD CT BODY, UMP CT ABDOMEN PELVIS Computed Tomography Specimen (Source) Anatomical Location Collection Method / Collectio n Time Received Time / Laterality Volume Impressions 03/24/2013 10:02 PM BARREL MAKER IMPRESSION: 1. ??Unremarkable CT abdomen and pelvis with contrast. ??No evidence of diverticulitis. ??Appendix not visualize d but no inflammation is noted about the cecum to suggest acute appendi citis. ??No free pelvic fluid or adnexal mass. 2. ??Fluid-filled loops of distal small bowel without distention could indicate gastroenteritis in the correct clinical setting. NANY CORDERO MD Narrative 03/24/2013 10:[address] ABDOMEN AND PELVIS WITH CONTRAST 03/24/2013 [...] CT ORDERABLES Urine culture (03/24/2013 8:10 PM BARREL MAKER) Component Value Ref Test Analysis Performed At [facility] Range Method Time Signature Specimen Midstream Urine [facility] LAB Special Specimen [facility] Requests received in MICROBIOLOGY preservative Culture Micro No growth [facility] MICROBIOLOGY Micro Report FINAL [facility] Status 03/26/2013 MICROBIOLOGY Specimen Anatomical Collection Method Collection Time Receive d Time (Source) Location / / Volume Laterality 03/24/2013 8:10 PM 4 BARREL MAKER 10:20 PM BARREL MAKER Emerita Bhatti MD LAB - MICRO GENERAL ORDERABL ES Performing Organization Address City/State/ZIP Code Phon e Number [phone] [place] [address] LAB [facility] MICROBIOLOGY (ABNORMAL) UA with Microscopic (03/24/2013 8:10 PM BARREL MAKER) [facility] Sitesimon Method Time Signature Color Urine Yellow [facility] LAB Appearance Urine Cloudy [facility] Glucose Urine Negative NEG mg/dL [facility] LAB Bilirubin Urine Negative NEG [facility] Ketones Urine 40 (A) NEG mg/dL [facility] LAB Specific Bernie 1.029 1.003 - [place] Urine 1.035 [facility] Blood Urine Negative NEG [facility] LAB pH Urine 6.0 5.0 - 7.0 [place] pH [facility] Protein Albumin 10 (A) NEG mg/dL [facility] LAB Urobilinogen 2.0 0.0 - 2.0 [place] mg/dL mg/dL [facility] Nitrite Urine Negative NEG [facility] Leukocyte Negative NEG [place] Esterase Urine [facility] Source Midstream [place] Urine [facility] WBC Urine 0 0 - 2 [facility] RBC Urine 0 0 - 2 [facility] Bacteria Urine Many (A) NEG /HPF [facility] Squamous 2 (H) 0 - 1 [place] Epithelial /HPF /HPF [facility] LAB Mucous Urine Present (A) NEG /LPF [facility] Amorphous Many (A) NEG /HPF [place] Crystals [facility] Specimen Anatomical Collection Method Collection Time Receive d Time (Source) Location / / Volume Laterality Urine specimen URINE SPECIMEN 03/24/2013 8:10 PM 03/24 9:51 (specimen) OBTAINED BY CLEAN BARREL MAKER PM BARREL MAKER CATCH PROCEDURE / Unknown Emerita Bhatti MD LAB - URINE ORDERABLES Performing Organization Address City/[facility] Phon e Number M [facility] [address] [place], [place] [phone] [place] [address] LAB HCG qualitative urine (03/24/2013 8:10 PM BARREL MAKER) P athologist Signature HCG Qual Urine Negative NEG [facility] LAB Specimen Anatomical Collection Method Collection Time Receive d Time (Source) Location / / Volume Laterality Urine specimen URINE SPECIMEN 03/24/2013 8:10 PM 03/24 8:26 (specimen) OBTAINED BY CLEAN BARREL MAKER PM BARREL MAKER CATCH PROCEDURE / Unknown Emerita Bhatti MD LAB - URINE ORDERABLES Performing Organization Address City/[facility]/ZIP [facility] Phon e Number M [facility] [address] [place], [place] [address] [facility] LAB Lipase (03/24/2013 8:00 PM BARREL MAKER) P athologist Signature Lipase 174 20 - 250 [facility] U/L [facility] LAB Specimen Anatomical Collection Method Collection Time Receive d Time (Source) Location / / Volume Laterality Blood specimen 03/24/2013 8:00 PM 014 8:08 (specimen) BARREL MAKER PM BARREL MAKER Emerita Bhatti MD LAB - BLOOD ORDERABLES Performing Organization Address City/[facility] Phon e Number M [facility] [address] [place], [place] [address] [facility] LAB Comprehensive metabolic panel (03/24/2013 8:00 PM BARREL MAKER) P athologist Signature Sodium 141 133 - 144 [place] mmol/L [facility] Potassium 3.6 3.4 - 5.3 [place] mmol/L [facility] Chloride 101 94 - 109 [place] mmol/L [facility] Carbon Dioxide 29 20 - 32 [place] mmol/L [facility] Anion Gap 12 6 - 17 [place] mmol/L [facility] Glucose 83 60 - 99 [place] mg/dL [facility] Urea Nitrogen 13 5 - 24 [place] mg/dL [facility] Creatinine 0.84 0.52 [facility] 1.[facility] mg/dL [facility] GFR Estimate 84 >60 [place] mL/min/[address] [place] [address] LAB GFR Estimate If >90 >60 [place] Black mL/min/1.[address] [place] [address] LAB Calcium 9.4 8.5 - 10.4 [place] mg/dL [facility] LAB Bilirubin Total 0.6 0.2 - 1.3 [place] mg/dL [facility] LAB Albumin 4.3 3.9 - 5.1 [place] g/dL [facility] Protein Total 8.0 6.8 - 8.8 [place] g/dL [facility] Alkaline 52 40 - 150 [place] Phosphatase U/L [facility] ALT 50 0 - 50 U/L [facility] AST 26 0 - 45 U/L [facility] LAB Specimen Anatomical Collection Method Collection Time Receive d Time (Source) Location / / Volume Laterality Blood specimen 03/24/2013 8:00 PM 014 8:08 (specimen) BARREL MAKER PM BARREL MAKER Emerita Bhatti MD LAB - BLOOD ORDERABLES Performing Organization Address City/State/ZIP Code Phon arnold Cruz [facility] [address] [place], [place] [address] [facility] LAB (ABNORMAL) CBC with platelets differential (03/24/2013 8:00 PM BARREL MAKER) Patholo gist Method Time Signature WBC 15.8 (H) 4.0 - [place] 11.0 [facility] LAB RBC Count 4.99 3.8 - 5.2 [place] 10e12/L [facility] LAB Hemoglobin 15.0 11.7 - [place] 15.7 g/dL [facility] LAB Hematocrit 42.8 35.0 - [place] 47.0 % [facility] MCV 86 78 - 100 [place] fl [facility] MCH 30.1 26.5 - [place] 33.0 pg [facility] MCHC 35.0 31.5 - [place] 36.5 g/dL [facility] RDW 12.6 10.0 - [place] 15.0 % [facility] Platelet Count 206 150 - [address] LAB Diff Method Automated [facility] LAB % Neutrophils 77.2 % [facility] LAB % Lymphocytes 16.1 % [facility] % Monocytes 6.3 % [facility] % Eosinophils 0.2 % [facility] LAB % Basophils 0.1 % [facility] LAB % Immature 0.1 % [place] Granulocytes [facility] Absolute 12.2 (H) 1.6 - 8.3 [place] Neutrophil [facility] LAB Absolute 2.6 0.8 - 5.3 [place] Lymphocytes [address] [place] [address] LAB Absolute 1.0 0.0 - 1.3 [place] Monocytes [address] [place] [address] LAB Absolute 0.0 0.0 - 0.7 [place] Eosinophils [address] LAB Absolute 0.0 0.0 - 0.2 [place] Basophils [address] [place] [address] LAB Abs Immature 0.0 0 - 0.4 [place] Granulocytes [address] [place] [address] LAB Specimen Anatomical Collection Method Collection Time Receive d Time (Source) Location / / Volume Laterality Blood specimen 03/24/2013 8:00 PM 014 8:08 (specimen) BARREL MAKER PM BARREL MAKER Emerita Bhatti MD LAB - BLOOD ORDERABLES Performing Organization Address City/State/ZIP Code Phon e Number M [facility] [address] [place], [place] [address] [phone] [place] [address] LAB documented in this encounter Visit Diagnoses Diagnosis Abdominal pain - Primary Abdominal pain, unspecified site documented in this encounter Administered Medications Inactive Administered Medications - up to 3 most recent administrations Medication Order MAR Action Action Date Dose Rate Site iohexol (OMNIPAQUE) 140 mg/mL Given 03/24/2013 8:14 PM BARREL MAKER 25 mL s solution 25 mL 25 [...] solution 500 mL Given 03/24/2013 9:07 PM BARREL MAKER 52 mLs 500 mL, Intravenous, ONCE, On Wed03/24/13 at 2100, For 1 dose ketorolac (TORADOL) injection 30 mg Given 03/24/2013 8:15 PM BARREL MAKER 30 mg 30 mg, Intravenous, ONCE, On Wed03/24/13 at 2015, For 1 dose, Do not give within 6 hours of Ibuprofen. ondansetron (ZOFRAN) injection 4 mg Given 03/24/2013 8:15 PM BARREL MAKER 4 mg 4 mg, Intravenous, EVERY 30 MIN PRN, nausea, vomiting, Administer over 2-5 Minutes, Starting on Wed03/24/13 at 2001, For 3 doses, May repeat in 30 minutes as needed, up to 3 doses. sodium chloride 0.9 % BOLUS New Bag 03/24/2013 8:15 PM BARREL MAKER 1,000 m Ls 1000 mL/hr 1,000 mL Intravenous, 1,000 mL, ONCE, at 1,000 mL/hr, Administer over 1 Hours, On Wed03/24/13 at 2015, For 1 dose sodium chloride 0.9 % BOLUS 1,000 mL New Bag 03/24/2013 9:09 PM BARREL MAKER 53 mLs Intravenous, 1,000 mL, ONCE, On Wed03/24/13 at 2100, For 1 dose documented in this encounter Active and Recently Administered Medications Times are shown in BARREL MAKER. Scheduled Medication Order 03/22/2013 03/23/2013 03/24/2013 iohexol [...] doses. documented in this encounter Care Teams Chick Sexer Relationship Specialty Start Date End Date Jayson Lombardo MD PCP - General Family Practice 03/24/13 documented as of this encounter
--- OUTSIDE RECORDS SUMMARY | 2022-02-17 17:44 | XMS_ITS | Encounter Summary ---
:1990 Author Organization [place] Address [address] [place] [address]. [place] [address] Care Team Providers Name Role Phone Chela Servin PA-C Primary Care Provider [phone] Reason for Visit Reason Comments Refill Request control medication Encounter Details Date Type Department Care Team Description 08/19/2010 Office Visit [facility], Screen ing for unspecified disorder of blood and blood-forming organs; [facility] [place] Chela Contreras PA-C Lipid screening; [address] Screening for diabetes mellitus; [place], [place] IRREGULAR MEN STRUATION; [id number] Routine general medical examination at a health care facility; [phone] Screening for t hyroid disorder; (Work) Vaginitis [...] Preventive Services Task Force (USPSTF) or the [place] (AAFP). They are [...] ?? Dental health: Visit your dentist regularly. Rupert your teeth with fluoride toothpaste daily. Also [...] No All Histories reviewed and updated in [facility]. ROS: C: NEGATIVE for fever, [...] Signature T4 Free 1.00 0.70 - 1.85 [place] [facility] ng/dL CLINIC LAB Specimen Anatomical Collection Method Collection Time Receive d Time (Source) Location / / Volume Laterality Blood specimen 08/19/2010 8:49 AM 011 8:50 (specimen) CDT AM CDT Chela Servin PA-C LAB - BLOOD ORDERABLES Performing Organization Address City/Va Hospital/ZIP Code Phon e Number [facility] [address] [place] [address] [facility] CL[facility] LAB TSH (08/19/2010 8:49 AM CDT) athologist Signature TSH 1.40 0.4 - 5.0 ST[facility] CL[facility] LAB Specimen Anatomical Collection Method Collection Time Receive d Time (Source) Location / / Volume Laterality Blood specimen 08/19/2010 8:49 AM 011 8:50 (specimen) CDT AM CDT Chela Servin PA-C LAB - BLOOD ORDERABLES Performing Organization Address City/Va Hospital/ZIP Code Phon e Number [facility] [address] [place] [address] [facility] LAB Glucose (08/19/2010 8:49 AM CDT) athologist Signature Glucose 83 60 - 99 [facility] mg/dL CLINIC LAB Specimen Anatomical Collection Method Collection Time Receive d Time (Source) Location / / Volume Laterality Blood specimen 08/19/2010 8:49 AM 011 8:50 (specimen) CDT AM CDT Chela Servin PA-C LAB - BLOOD ORDERABLES Performing Organization Address City/Va Hospital/ZIP Code Phon e Number [address] [address] [phone] [facility] Lipid panel reflex to direct LDL (08/19/2010 8:49 AM CDT) athologist Signature Cholesterol 148 0 - 200 [facility] mg/dL CLINIC LAB Comment: LDL Cholesterol is the primary guide to therapy. The NCEP recommends further evaluation of: patients with cholesterol greater than 200 mg/dL if additional risk facto rs are present, cholesterol greater than 240 mg/dL, triglycerides greater than 1 50 mg/dL, or HDL less than 40 mg/dL. Triglycerides 73 0 - 150 mg/dL [facility] LAB HDL Cholesterol 61 50 - 110 mg/dL [facility] LDL Cholesterol Calculated 73 0 - 129 mg/dL [facility] Comment: LDL Cholesterol is the primary guide to therapy: LDL-cholesterol goal in high risk patients is <100 mg/dL and in very high risk patients is <70 mg/dL. VLDL-Cholesterol 15 0 - 30 mg/dL [facility] LAB Cholesterol/HDL Ratio 2.4 0.0 - 5.0 [facility] LAB Specimen Anatomical Collection Method Collection Time Receive d Time (Source) Location / / Volume Laterality Blood specimen 08/19/2010 8:49 AM 011 8:50 (specimen) CDT AM CDT Chela Servin PA-C LAB - BLOOD ORDERABLES Performing Organization Address City/Va Hospital/ZIP Code Phon e Number [facility] [address] [place] [phone] [facility] CBC with platelets (08/19/2010 8:49 AM CDT) P athologist Signature WBC 4.9 4.0 - 11.0 [place] 10e9/L [facility] LAB RBC Count 4.70 3.8 - 5.2 [place] 10e12/L [facility] LAB Hemoglobin 14.0 11.7 - STAPLES 15.7 g/dL [facility] LAB Hematocrit 41.1 35.0 - [place] 47.0 % [facility] LAB MCV 87 78 - 100 [place] fl [facility] LAB MCH 29.8 26.5 - [place] 33.0 pg [facility] LAB MCHC 34.1 31.5 - [place] 36.5 g/dL [facility] LAB RDW 13.2 10.0 - [place] 15.0 % [facility] LAB Platelet Count 150 150 - 450 [place] 10e9/L [facility] LAB Specimen Anatomical Collection Method Collection Time Receive d Time (Source) Location / / Volume Laterality Blood specimen 08/19/2010 8:49 AM 011 8:50 (specimen) CDT AM CDT Chela Servin PA-C LAB - BLOOD ORDERABLES Performing Organization Address City/Va Hospital/ZIP Code Phon e Number [address] [address] [facility] LAB Wet prep (08/19/2010 8:43 AM CDT) Patholo gist Method Time Signature Specimen Vagina [facility] Description [facility] LAB Wet Prep No Trichomonas seen CORRECTE D ON 08/19 AT 0910: PREVIOUSLY REPORTED Clue cells [facility] seen [place] No clue cells seen CORRECTED ON 08/19 AT 0910: PREVIOUSLY REPORTED Yeast seen CLINIC LAB No yeast seen Micro Report FINAL STAPLES Status 08/19/2010 [facility] LAB Specimen Anatomical Collection Method Collection Time Receive d Time (Source) Location / / Volume Laterality 08/19/2010 8:43 AM 1 8:44 CDT AM CDT Chela Servin PA-C LAB - MICRO GENERAL OR DERABLES Performing Organization Address City/State/ZIP Code Phon e Number [facility] [address] [place] [address] [facility] CLIN[facility] LAB documented in this encounter Visit Diagnoses Diagnosis Screening for unspecified disorder of bl ood and blood-forming organs Lipid screening Screening for lipoid disorders Screening for diabetes mellitus IRREGULAR MENSTRUATION Irregular menstrual cycle Routine general medical examination at a health care facility Screening for thyroid disorder Vaginitis Vaginitis and vulvovaginitis, unspecifie d documented in this encounter Care Teams Director And Professor Relationship Specialty Start Date End Date Chela Servin PA-C PCP - General Family Practice 08/05/10 03/23/13 [address] [place] [address] documented as of this encounter
--- OUTSIDE RECORDS SUMMARY | 2022-02-17 17:45 | XMS_ITS | Encounter Summary ---
:1989 Author Organization [place] Address [address] [place] [address] Care Team Providers Name Role Phone Olivia Moreno MD Primary Care Provider Reason for Visit Reason Comments Mantoux Results Reading mantoux negative Encounter Details Date Type Department Care Team Description 09/21/2003 Allied Health/Nurse [facility] Man toux Results Reading Visit [facility] [place] (mantoux negative) [id number] [place] [phone] Social History Tobacco Use Types Packs/Day Years Used Date Smoking Tobacco: Never Assessed Sex Assigned at Date Recorded Female 05/29/2020 7:33 PM CDT documented as of this encounter Plan of Treatment Not on filedocumented as of this encounter Visit Diagnoses Diagnosis Screening examination for pulmonary tube rculosis - Primary documented in this encounter Care Teams Brass Cleaner Relationship Specialty Start Date End Date Olivia Moreno MD PCP - General 09/19/03 08/04/[address] [address] documented as of this encounter
--- OUTSIDE RECORDS SUMMARY | 2022-02-17 17:45 | XMS_ITS | Encounter Summary ---
:1990 Author Organization [place] Address [address] [place] [address] Care Team Providers Name Role Phone Olivia Moreno MD Primary Care Provider Reason for Referral [facility] - Closed Specialty Diagnoses / Procedures Referred By Contact Refer red To Contact Diagnoses Back pain Sciatica Chon Tinoco [facility] MD Froilan [address] [place], [place] [address] Referral ID Status Reason Start Date Expiration Date Visits Requ ested Visits Authorized [id number] Closed 03/14/2008 03/14/2011 12 12 ING INSPECTOR Reason for Visit Reason Comments Back Pain lower left back pain x ongoi ng since Dec 2006, pt is taking Alleve for the pain Encounter Details Date Type Department Care Team Description 03/14/2008 Office Visit [facility] Chon Tinoco Back Pain; Roque Mcgovern MD Sciatica [address] [place] [address] [address] [place] [address] [facility] Nancy [place] [address] (Wo rk) Social History Tobacco Use Types Packs/Day Years Used Date Smoking Tobacco: Never Alcohol Use Standard Drinks/Week Comments No 0 (1 standard drink = 0.6 oz pure alcoho l) Sex Assigned at Date Recorded Female 05/29/2020 7:33 PM CDT documented as of this encounter Last Filed Vital Signs Vital Sign Reading Time Taken Comments Blood Pressure 108/64 03/14/2008 11:30 AM WEAVING INSPECTOR Pulse 76 03/14/2008 11:30 AM WEAVING INSPECTOR Temperature 36.7 ??C (98.1 ??F) 03/14/2008 11:30 AM WEAVING INSPECTOR Respiratory Rate - - Oxygen Saturation 100% 03/14/2008 11:30 AM WEAVING INSPECTOR Inhaled Oxygen Concentration - - Weight 47.2 kg (104 lb) 03/14/2008 11:30 AM WEAVING INSPECTOR Height 171.5 cm (5' 7.5) 03/14/2008 11:30 AM WEAVING INSPECTOR Body Mass Index 16.05 03/14/2008 11:30 AM WEAVING INSPECTOR Body Mass Index Percentile 0.31 % 03/14/2008 [...] history, are all reviewed and updated in [facility]. Current outpatient prescriptions prior to encounter: [...] proceed with MRI and referral to surgery. ING INSPECTOR documented in this encounter Nursing Notes 03/14/2008 [...] completed using cuff size: regular Sly Jeff AIRLINE TICKET AGENT documented in this encounter Plan of Treatment Not on filedocumented as of this encounter Visit Diagnoses Diagnosis Back pain Backache, unspecified Sciatica documented in this encounter Care Teams Color Dipper Relationship Specialty Start Date End Date Olivia Moreno MD PCP - General 09/19/03 08/04/[address] [address] documented as of this encounter
--- OUTSIDE RECORDS SUMMARY | 2022-02-17 17:45 | XMS_ITS | Encounter Summary ---
:1989 Author Organization [place] Address [address] [place] [address] Care Team Providers Name Role Phone Olivia Moreno MD Primary Care Provider Encounter Details Date Type Department Care Team Description 03/26/2008 Therapy Visit [facility] Andrew Modi Lumbar Radiculopathy [address] [address] PT (Primary Dx) [place] [address] [phone] [place] [address] Social History Tobacco Use Types [...] Medicaid as primary or secondary insurance? NO INE MILKER documented in this encounter Plan of Treatment Not on filedocumented as of this encounter Procedures Procedure Name Priority Date/Time Associated Diagnosis Comme nts [facility] MANUAL THER Routine 03/26/2008 4:44 PM MACHINE MILKER Lumbar Radiculo mercedes TECH,1+REGIONS,EA 15 MIN ZZC THERAPEUTIC Routine 03/26/2008 4:44 PM MACHINE MILKER Lumbar Radiculo mercedes EXERCISES documented in this encounter Visit Diagnoses Diagnosis Lumbar radiculopathy - Primary Thoracic or lumbosacral neuritis or radi culitis, unspecified documented in this encounter Care Teams Material Control Analyst Relationship Specialty Start Date End Date Olivia Moreno MD PCP - General 09/19/03 08/04/[address] [address] documented as of this encounter
--- OUTSIDE RECORDS SUMMARY | 2022-02-17 17:45 | XMS_ITS | Encounter Summary ---
:1990 Author Organization [place] Address [address] [facility] 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 Exam last pap was 02/19, last pap was normal Blood Draw pt IS fasting Encounter Details Date Type Department Care Team Description 03/11/2009 Office Visit [facility] Micheal Servin Physical Examination (Primary Dx); [facility] [place] Chela Contreras PA-C Irregular Menstrual Cycle; [address] Screening for Unspecified Disorder of Bl ood and Blood-Forming Organs; [place], [place] Screening for Thyroid Disorder; [id number] Screening for Diabetes Mellitus; [phone] Routine General Medical Examination at a Health [...] Comments Blood Pressure 106/66 03/11/2009 9:05 AM HAIR AND MAKEUP DESIGNER Pulse 62 03/11/2009 9:05 AM HAIR AND MAKEUP DESIGNER Temperature 36.4 ??C (97.6 ??F) 03/11/2009 9:05 AM HAIR AND MAKEUP DESIGNER Respiratory Rate - - Oxygen Saturation 98% 03/11/2009 9:05 AM HAIR AND MAKEUP DESIGNER Inhaled Oxygen Concentration - - Weight 47.6 kg (105 lb) 03/11/2009 9:05 AM HAIR AND MAKEUP DESIGNER Height 171.5 cm (5' 7.5) 03/11/2009 9:05 AM HAIR AND MAKEUP DESIGNER Body Mass Index 16.2 03/11/2009 9:05 AM HAIR AND MAKEUP DESIGNER documented in this encounter Progress Notes Chela Servin - 03/11/2009 9:36 AM CST SUBJECTIVE: CC: Nataly Simon is a 18 year old female who presents for routine health maintenance Patient is not sexually active, never been. Does not want pap if she doesn't have to have it. HPI: 1) Hurt her back on Dec 2006, moving weights. [place] like she pulled herself in left lower back. [place] back spasm. This has been a recurring [...] ??? 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 Lives with parents Family History Problem [...] Due ??? Pap q 1 yr diagnostic Zenbox message 2002 ??? Tetanus immunization ( [facility] [...] appointment if any problems or failureto improve. AND MAKEUP DESIGNER documented in this encounter Nursing Notes 03/11/2009 9:00 AM CST >> EDUAR Alvarado Mar 11, 2009 9:07 AM Patient presents with: Physical - last px 03/23 Golf Course Laborer Exam - last pap was 02/19, last pap was normal Blood Draw - pt IS fasting Initial BP 106/66 Pulse 62 Temp (Src) 97.6 ??F (36.4 ??C) (Oral) Ht 5' 7.5 (1.715 m) Wt 105lb (47.628 kg) SpO2 98% LMP 02/25/2009 Body mass index is 16.20 kg/(m^2).. BP completed using cuff size: regular Eduar Jeff MOTION STUDY TECHNICIAN documented in this encounter Plan of Treatment Pending Results Name Type Priority Associated Diagnoses Date/Ti me CONSULT [facility] ORTHO WASH OIL PUMP OPERATOR HELPER Referral Routine Chronic Low Ba ck Pain 03/14/2009 documented as of this encounter Procedures Procedure Name Priority Date/Time Associated Diagnosis Comme nts ORTHOPEDIC WASH OIL PUMP OPERATOR HELPER Routine 03/14/2009 Chronic Low Back REFERRAL Pain CL AFF CBC WITH Routine 03/11/2009 9:53 AM Screening for Resul ts for this PLATELETS HAIR AND MAKEUP DESIGNER Unspecified Disorder procedu re are in of Blood and the results Blood-Forming Organs section . HCL TSH W/FREE T4 Routine 03/11/2009 9:53 AM Screening for Res ults for this REFLEX HAIR AND MAKEUP DESIGNER Thyroid Disorder procedure a re in the results section. HCL GLUCOSE Routine 03/11/2009 9:53 AM Screening for Results for this HAIR AND MAKEUP DESIGNER Diabetes Mellitus procedure are in the results section. documented in this encounter Results GLUCOSE (03/11/2009 9:53 AM HAIR AND MAKEUP DESIGNER) athologist Signature Glucose 86 60 - 99 [facility] mg/dL CLINIC LAB Specimen Anatomical Collection Method Collection Time Receive d Time (Source) Location / / Volume Laterality 03/11/2009 9:53 AM 9 9:54 HAIR AND MAKEUP DESIGNER AM HAIR AND MAKEUP DESIGNER Chela Servin PA-C LABORATORY Performing Organization Address City/State/ZIP Code Phon e Number [facility] [address] [place] [address] [facility] LAB TSH W/FREE T4 REFLEX (03/11/2009 9:53 AM HAIR AND MAKEUP DESIGNER) athologist Signature TSH 2.48 0.4 - 5.0 [place] mU/L CLINIC LAB Specimen Anatomical Collection Method Collection Time Receive d Time (Source) Location / / Volume Laterality 03/11/2009 9:53 AM 9 9:54 HAIR AND MAKEUP DESIGNER AM HAIR AND MAKEUP DESIGNER Chela Servin PA-C LABORATORY Performing Organization Address City/State/ZIP Code Phon e Number [facility] [address] [place] [address] [facility] LAB CBC WITH PLATELETS (03/11/2009 9:53 AM HAIR AND MAKEUP DESIGNER) P athologist Signature WBC 5.5 4.0 - 11.0 [place] 10e9/L [facility] LAB RBC Count 4.97 3.8 - 5.2 [place] 10e12/L [facility] LAB Hemoglobin 14.9 11.7 - [facility] 15.7 g/dL [facility] Hematocrit 42.5 35.0 - [facility] 47.0 % [facility] MCV 86 78 - 100 [facility] LAB MCH 30.0 26.5 - [facility] 33.0 pg [facility] MCHC 35.1 31.5 - [facility] 36.5 g/dL [facility] RDW 14.3 10.0 - [facility] 15.0 % [facility] LAB Platelet Count 183 150 - 450 [place] 10e9/L [facility] LAB Specimen Anatomical Collection Method Collection Time Receive d Time (Source) Location / / Volume Laterality 03/11/2009 9:53 AM 9 9:54 HAIR AND MAKEUP DESIGNER AM HAIR AND MAKEUP DESIGNER Chela Servin PA-C LABORATORY Performing Organization Address City/State/ZIP Code Phon e Number [facility] [address] [place] [address] [facility] LAB documented in this encounter Visit [...] Lumbago documented in this encounter Care Teams Translation Director Relationship Specialty Start Date End Date Olivia Moreno MD PCP - General 09/19/03 08/04/[address] [address] documented as of this encounter
--- OUTSIDE RECORDS SUMMARY | 2022-02-17 17:45 | XMS_ITS | Encounter Summary ---
:1989 Author Organization [place] Address [address] [place] [address] Care Team Providers Name Role Phone Olivia Moreno MD Primary Care Provider Reason for Visit Reason Comments Imm/Inj mantoux Encounter Details Date Type Department Care Team Description 09/19/2003 Allied Health/Nurse [facility] Imm/Inj (mantoux) Visit [address] [address] Social History Tobacco Use Types [...] Primary documented in this encounter Care Teams Furnace Caretaker Relationship Specialty Start Date End Date Olivia Moreno MD PCP - General 09/19/03 08/04/[address] [address] documented as of this encounter
--- OUTSIDE RECORDS SUMMARY | 2022-02-17 17:45 | XMS_ITS | Encounter Summary ---
:1989 Author Organization [place] Address [address] [place] [address]. [place] [address] Care Team Providers Name Role Phone Olivia Moreno MD Primary Care Provider Encounter Details Date Type Department Care Team Description 04/13/2008 Therapy Visit [facility] for Lavonne Mcpherson PTA Lumbar Radiculopathy Athletic Medicine - [address] (Prima ry Dx) [facility] [place] [address] [facility] [phone] [place], [place] (Work) [address] Social History Tobacco Use [...] Medicaid as primary or secondary insurance? NO LIANCE VICE PRESIDENT documented in this encounter Plan of Treatment Not on filedocumented as of this encounter Procedures Procedure Name Priority Date/Time Associated Diagnosis Comme nts [facility] MANUAL THER Routine 04/13/2008 11:53 AM Lumbar Radiculopat hy TECH,1+REGIONS,EA 15 MIN COMPLIANCE VICE PRESIDENT ZZC THERAPEUTIC Routine 04/13/2008 11:53 AM Lumbar Radiculopat hy EXERCISES COMPLIANCE VICE PRESIDENT documented in this encounter Visit Diagnoses Diagnosis Lumbar radiculopathy - Primary Thoracic or lumbosacral neuritis or radi culitis, unspecified documented in this encounter Care Teams Senior Stock Plan Administrator Relationship Specialty Start Date End Date Olivia Moreno MD PCP - General 09/19/03 08/04/[address] [address] documented as of this encounter
--- OUTSIDE RECORDS SUMMARY | 2022-02-17 17:45 | XMS_ITS | Encounter Summary ---
:1989 Author Organization [place] Address [address] [place] [address] Care Team Providers Name Role Phone Olivia Moreno MD Primary Care Provider Reason for Visit Reason Onset Date Comments Medication Request 09/09/2009 Encounter Details Date Type Department Care Team Description 09/09/2009 Telephone [facility] Noah Moreno MD Medication Request [address] [address] [place] [address] [phone] (Wo rk) Social History Tobacco Use Types [...] AM ------ Message from: LEATHA MARK Created: [facility] Sep 07, 2009 9:45 AM Regarding: Rx change/Chela Contact: Nataly crawley her control changed to Nate. She was on ortho tri-cyclen years ago. Please sendto [employer] in [place]. Nataly can be reached at [phone]. DL 6-26@9:48am documented in this encounter Plan of Treatment Not on filedocumented as of this encounter Visit Diagnoses Diagnosis OCP (oral contraceptive pills) initiatio n - Primary General counseling for prescription of o ral contraceptives documented in this encounter Care Teams Facing End Trimmer Relationship Specialty Start Date End Date Olivia Moreno MD PCP - General 09/19/03 08/04/[address] [address] documented as of this encounter
--- OUTSIDE RECORDS SUMMARY | 2022-02-17 17:45 | XMS_ITS | Encounter Summary ---
:1990 Author Organization [place] Address [address] [place] [address]. [place] [address] Care Team Providers Name Role Phone Olivia Moreno MD Primary Care Provider Encounter Details Date Type Department Care Team Description 03/30/2008 Therapy Visit [facility] [place], Lumbar Radiculopathy [address] CIN[address] Gee, PT (Primary Dx) [place] [address] [address] [facility] N [phone] [place] [address] Social History Tobacco Use Types [...] Medicaid as primary or secondary insurance? NO LOGY TECHNICIAN documented in this encounter Plan of Treatment Not on filedocumented as of this encounter Procedures Procedure Name Priority Date/Time Associated Diagnosis Comme nts [facility] MANUAL THER Routine 03/30/2008 5:40 PM SEROLOGY TECHNICIAN Lumbar Radiculo mercedes TECH,1+REGIONS,EA 15 MIN ZZC THERAPEUTIC Routine 03/30/2008 5:40 PM SEROLOGY TECHNICIAN Lumbar Radiculo mercedes EXERCISES documented in this encounter Visit Diagnoses Diagnosis Lumbar radiculopathy - Primary Thoracic or lumbosacral neuritis or radi culitis, unspecified documented in this encounter Care Teams Senior Premium Auditor Relationship Specialty Start Date End Date Olivia Moreno MD PCP - General 09/19/03 08/04/[address] [address] documented as of this encounter
--- OUTSIDE RECORDS SUMMARY | 2022-02-17 17:45 | XMS_ITS | Encounter Summary ---
:1990 Author Organization [facility] Address [address] [place] [address] Care Team Providers Name Role Phone Olivia Moreno MD Primary Care Provider Reason for Visit Reason Comments Abnormal Bleeding Problem irregular periods Encounter Details Date Type Department Care Team Description [facility] [place] NO INFO (Primary Dx) [address] [facility] [place], [place] [phone] [place] [address] Social History Tobacco Use Types Packs/Day Years Used Date Smoking Tobacco: Never Alcohol Use Standard Drinks/Week Comments No 0 (1 standard drink = 0.6 oz pure alcoho l) Sex Assigned at Date Recorded Female 05/29/2020 7:33 PM CDT documented as of this encounter Last Filed Vital Signs Vital Sign Reading Time Taken Comments Blood Pressure 96/60 01/26/2005 2:15 PM HEALTHCARE ADMINISTRATOR Pulse - - Temperature 35.7 ??C (96.2 ??F) 01/26/2005 2:15 PM HEALTHCARE ADMINISTRATOR Respiratory Rate - - Oxygen Saturation - - Inhaled Oxygen Concentration - - Weight 44.7 kg (98 lb 8 oz) 01/26/2005 2:15 PM HEALTHCARE ADMINISTRATOR Height - - Body Mass Index - [...] see if your own cycles will regulate THCARE ADMINISTRATOR documented in this encounter Nursing Notes 01/26/2005 [...] Primary documented in this encounter Care Teams Slicer Machine Operator Relationship Specialty Start Date End Date Olivia Moreno MD PCP - General 09/19/03 08/04/[address] [address] documented as of this encounter
--- OUTSIDE RECORDS SUMMARY | 2022-02-17 17:45 | XMS_ITS | Encounter Summary ---
:1990 Author Organization [facility] Address [address] [place] [address] Care Team Providers Name Role Phone Olivia Moreno MD Primary Care Provider Reason for Referral - Closed Specialty Diagnoses / Procedures Referred By Contact Refer red To Contact Diagnoses Temporomandibular joint disorders, unspecified Miar Steel MD XXX NO INFO FOUND XX X XXX [facility] [place] [address] Referral ID Status Reason Start Date Expiration Date Visits Requ ested Visits Authorized [id number] Closed 12/10/2003 03/14/2011 1 1 Reason for Visit Reason Comments Pain left side jaw pain Encounter Details Date Type Department Care Team Description 12/10/2003 Office Visit [facility] Mira Steel M D TM JOINT DISORDER, [facility] [place] XXX NO INFO FOUND UNSPEC (Primary Dx) [address] [facility] [place], [place] [phone] [place] [address] Social History Tobacco Use Types Packs/Day Years [...] Progress Notes 12/10/2003 1:30 PM CDT SUBJECTIVE: activated sludge operator gave her info on TMJ syndrome OBJECTIVE: [...] Primary documented in this encounter Care Teams Union Contract Representative Relationship Specialty Start Date End Date Olivia Moreno MD PCP - General 09/19/03 08/04/[address] [address] documented as of this encounter
--- OUTSIDE RECORDS SUMMARY | 2022-02-17 17:45 | XMS_ITS | Encounter Summary ---
:1990 Author Organization [facility] Address [address] [place] [address]. [place] [address] Care Team Providers Name Role Phone Olivia Moreno MD Primary Care Provider Encounter Details Date Type Department Care Team Description 04/20/2008 Therapy Visit [facility] for Lavonne Mcpherson PTA Lumbar Radiculopathy Athletic Medicine - [address] (Prima ry Dx) [facility] [place] [address] [facility] [phone], [place] (Work) [address] Social History Tobacco Use [...] Medicaid as primary or secondary insurance? NO ENT RECORDS COORDINATOR documented in this encounter Plan of Treatment Not on filedocumented as of this encounter Procedures Procedure Name Priority Date/Time Associated Diagnosis Comme nts ZZC MANUAL THER Routine 04/20/2008 11:51 AM STUDENT RECORDS COORDINATOR Lumbar Radicul opathy TECH,1+REGIONS,EA 15 MIN documented in this encounter Visit Diagnoses Diagnosis Lumbar radiculopathy - Primary Thoracic or lumbosacral neuritis or radi culitis, unspecified documented in this encounter Care Teams Car Wash Attendant Relationship Specialty Start Date End Date Olivia Moreno MD PCP - General 09/19/03 08/04/[address] [address] documented as of this encounter
--- OUTSIDE RECORDS SUMMARY | 2022-02-17 17:45 | XMS_ITS | Encounter Summary ---
:1990 Author Organization [facility] Address [address] [place] [address] Care Team Providers Name Role Phone Olivia Moreno MD Primary Care Provider Reason for Visit Reason Onset Date Comments Medication Request 08/31/2008 Tamiflu Encounter Details Date Type Department Care Team Description 08/31/2008 [facility] Olivia Moreno MD Medication Request Clinic [facility] (Tamiflu) [address] [phone] [place] [address] (Wo rk) Social History Tobacco [...] on filedocumented in this encounter Care Teams Bulk Delivery Driver Relationship Specialty Start Date End Date Olivia Moreno MD PCP - General 09/19/03 08/04/[address] [address] documented as of this encounter
--- OUTSIDE RECORDS SUMMARY | 2022-02-17 17:45 | XMS_ITS | Encounter Summary ---
:1990 Author Organization [facility] Address [address] [place] [address] Care Team Providers Name Role Phone Olivia Moreno MD Primary Care Provider Encounter Details Date Type Department Care Team Description 04/04/2008 Therapy Visit [facility] Lavonne Mcpherson, LEROY Lumbar Radiculopathy [address] (Primary Dx) [place] [address] [address] [phone] [place] [address] Social History Tobacco Use Types [...] Medicaid as primary or secondary insurance? NO RVISOR PROPERTIES documented in this encounter Plan of Treatment Not on filedocumented as of this encounter Procedures Procedure Name Priority Date/Time Associated Diagnosis Comme nts [facility] MANUAL THER Routine 04/04/2008 5:23 PM SUPERVISOR PROPERTIES Lumbar Radiculo mercedes TECH,1+REGIONS,EA 15 MIN ZZC THERAPEUTIC Routine 04/04/2008 5:23 PM SUPERVISOR PROPERTIES Lumbar Radiculo mercedes EXERCISES documented in this encounter Visit Diagnoses Diagnosis Lumbar radiculopathy - Primary Thoracic or lumbosacral neuritis or radi culitis, unspecified documented in this encounter Care Teams Sheriff Relationship Specialty Start Date End Date Olivia Moreno MD PCP - General 09/19/03 08/04/[address] [address] documented as of this encounter
--- OUTSIDE RECORDS SUMMARY | 2022-02-17 17:45 | XMS_ITS | Encounter Summary ---
:1990 Author Organization [facility] Address [address] [place] [address] Care Team Providers Name Role Phone Olivia Moreno MD Primary Care Provider Encounter Details Date Type Department Care Team Description 04/11/2008 Therapy Visit [facility] Lavonne Cochran, LEROY Lumbar Radiculopathy [address] [address] (Primary Dx) [place] [address] [address] [phone] [place] [address] Social History Tobacco Use Types Packs/Day Years Used Date Smoking Tobacco: Never Alcohol Use Standard Drinks/Week Comments No 0 (1 standard drink = 0.6 oz pure alcoho l) Sex Assigned at Date Recorded Female 05/29/2020 7:33 PM CDT documented as of this encounter Progress Notes Alex Stokes - 04/16/2008 1:16 PM MACHINIST 2ND SHIFT Addended by: ALEX STOKES on: 04/16/2008 1:16:43 PM Modules accepted: Orders INIST 2ND SHIFT Lavonne Mcpherson - 04/11/2008 6:07 PM CST Please refer to the daily flowsheet for treatment today and total treatment time. Does this patient have Medicare or Medicaid as primary or secondary insurance? NO INIST 2ND SHIFT documented in this encounter Plan of Treatment Not on filedocumented as of this encounter Procedures Procedure Name Priority Date/Time Associated Diagnosis Comme nts ZC THERAPEUTIC Routine 04/16/2008 1:16 PM MACHINIST 2ND SHIFT Lumbar Radiculo mercedes EXERCISES [facility] MANUAL THER Routine 04/11/2008 6:08 PM MACHINIST 2ND SHIFT Lumbar Radiculo mercedes TECH,1+REGIONS,EA 15 MIN documented in this encounter Visit Diagnoses Diagnosis Lumbar radiculopathy - Primary Thoracic or lumbosacral neuritis or radi culitis, unspecified documented in this encounter Care Teams Medical Care Administrator Relationship Specialty Start Date End Date Olivia Moreno MD PCP - General 09/19/03 08/04/[address] [address] documented as of this encounter
[2022-02-17 18:29] LABS: SARS PCR* Negative SARS-CoV-2 (Negative)
--- NOTE | 2022-02-17 19:05 | P.LDBA_ITS ---
Subjective History of Present Illness Narrative: Patient is being admitted to Labor and Delivery for SROM, clear fluid @ 1510. Ctx started shortly after at 1600. She is a 31 year old at 37.3 weeks gestation. Her full history and physical was dictated by Heriberto Zapata on 02/16/22. Please see this for details. Her partner Omer and mom are at bedside for support. Spouse: Omer 1. Hx of delivery at 34.4 weeks. GBS swab done at 33 wks, repeat at 38 wks Pt has information on progesterone, plans to do Offered consult with perinatology, completed Recommended Cervical Length every 2 weeks w/ close monitoring starting @16 weeks until 23 weeks Consider cerclage if shortened cervix <23 weeks Urine culture every trimester w/ aggressive tx if needed At 20 weeks: Negative 200 mcg prometrium vaginally qhs starting at 16wks - 36 weeks Level II: WNL, no abnormalities, posterior placenta, SDP 5.3, EFW 20%. No further u/s or BPPs/NSTs needed 2. Hx of depression and anxiety. Previously done therapy & medication, stable at this time 3. Varicella non-immune in previous , did not get vaccine PP. NEEDS: vaccine PP 4. Small MEHREEN, not noted at 16 wk US 5. Low Pre- BMI 6. Blood Type B Negative NEEDS Rhogam at 28 weeks, given 12/18/2021 NEEDS Rhogam pp 7. Thrombocytopenia, Plt 133 at 16 weeks NEEDS FULL CBC w/ 28 week labs, 155 Recheck at 36 weeks or in labor, patient can decide; planning unmedicated 8. N/V, continues at 28 weeks. Normal weight gain Uses unisom and vitamin B6 for nausea 9. Yeast infection 12/18, going to try OTC topical and homeopathic remedies; symptoms resolved at next visit. 10. Measuring small for dates at 31.2 wks Growth us ordered: 24%ile on 01/09, normal interval growth (femur length <3%), normal cervical length Repeat ordered at 36 weeks: 15% OB - H&P: Exam Physical Exam: Vital signs: Temp Pulse BP Pulse Ox 98.7 F 88 109/61 97 02/17/22 17:50 02/17/22 17:52 02/17/22 17:52 02/17/22 17:48 Constitutional: Constitutional: no acute distress (Breathing through ctx in good control) and cooperative Routine HEENT Exam: Head: Present atraumatic and normocephalic Routine Neck Exam: Neck: Present full ROM Routine Respiratory Exam: Respiratory: Present CTA bilaterally Routine Cardiovascular Exam: Cardiovascular: RRR Routine Abdominal Exam: Abdominal: Absent tenderness Comments: Gravid Detailed Labor and Delivery Exam: Patient Gravid: yes Dilation (cm): 6 (per RN) Effacement (%): 70 (per rn) Contraction frequency (min): 3 (q 2-5 min) Contraction intensity: Moderate Fetus (Single): Station: -1 Amniotic Membrane Status: SROM Amniotic Membrane Fluid Description: Clear (SROM @ 1510) Heart Rate Baseline: 135 Monitor Accelerations: Present Monitor Decelerations: Variable (Occ noted on admit, resolved) [employer] Of [employer] Variability: Moderate (6-25) Routine Extremities Exam: Extremities: Present full ROM; Absent pedal edema Routine Back/Spine/Pelvis Exam: Back/Spine: full ROM Routine Skin Exam: Present intact Routine Neurological Exam: Present alert and oriented X3 Routine Psychiatric Exam: Present normal affect and normal thought process OB - Problem Based A/P Additional Plan (1) SROM (spontaneous rupture of membranes): Status: Acute (2) Active labor: Status: Acute Plan at 37.3 weeks GBS neg complicated by: -gestational thrombocytopenia -Measuring small for dates - growth u/s 02/16/22 EFW 15% SROM, clear fluid X4.5 hours Active labor Admit to L & D Pt candidate for analgesia of choice. Planning unmedicated . Candidate for waterbirth - is undecided if she desires this. Consent signed and Hep C neg. Mildly low platelets in . Agrees to AMTSL with pitocin after delivery, and TXA just prior to delivery. IV placed. Repeat labs sent. Intermittent monitoring per protocol. Can consider continuous EFM if repeat variables are noted again. Expectant management at this time. Anticipate progress to NVD Delivery/Labor/Induction Plan Plan: expectant management
[2022-02-17 19:58] LABS: Basophils Percent Auto 0.1 % (0.0-3.0); Eosinophils Percent Auto 0.3 % (0.0-7.0); Hematocrit 37.7 % (33.0-51.0); Hemoglobin* 12.9 gm/dL (12.0-16.0); Immature Granulocytes Pct Auto 0.1 %; Lymphocytes Percent Auto 19.6 % (20-44); Mean Corpuscular HGB Conc 34 gm/dL (32-36); Mean Corpuscular Hemoglobin 30 pg (26-34); Mean Corpuscular Volume 88 fL (80-100); Monocytes Percent Auto 6.7 % (0.0-11.0); Neutrophils Percent Auto 73.2 % (42.0-72.0); Platelet Count* 157 K/uL (140-440); RDW Coefficient of Variation % 12.9 % (11.5-15.5); White Blood Count* 13.53 K/uL (4.50-11.00)
[2022-02-17 20:03] LABS: Slide Review Reflex No
[2022-02-17] MEDS: TRANEXAMIC ACID 100 MG/ML INJ 1000 MG IV (22:12)
[2022-02-17] MEDS: OXYTOCIN 10 UNIT/ML INJ IM (22:18)
--- NOTE | 2022-02-17 22:38 | PM.OBPRCVD ---
Procedure Delivery date: 02/17/22 Procedure Done: Global Procedure Details: Patient is a 31 year-old G2 now ?P1102 admitted on 02/17/22 at 37.3 Weeks gestation for SROM/active labor.. ?Cervical exam on admission was 6 cm/70 % effaced/-1 station with membranes ruptured in vertex presentation.? SROM? occurred at 1510 with clear fluid. Labor Analgesia:? none Pitocin:? ? No, PP only for AMTSL Labor onset:? 1818 Complete: unknown Pushing:? 2209 heart tones during second stage were: WNL Nataly labored in various positions - on the stool, hands and knees on the maher bag chair, side lying with the peanut ball. Labor continued to progress, but no strong urge to push. Decision made to proceed with sidelying release. Turned to right side, and during the 3rd contraction, she announced the baby was coming. Small crown noted at that time. Turned to her back, and continued to push in great control with the next few contractions, easing baby out slowly. Nuchal arm noted just as the head finished delivery,, likely right arm. TXA was started as the infant was noted to be At 2215 a viable?male delivered in vertex OA presentation over intact perineum via spontaneous vaginal?delivery. ?Infant was placed on maternal abdomen. ?Cord was clamped and cut after it stopped pulsing.? Nose and mouth were bulb suctioned.? weight pending. ? 9 at 1 minute and 9 at 5 minutes. ?Shoulder dystocia: no. ?Nuchal cord: no. Placenta delivered spontaneously and complete at with a 3 vessel cord. Pitocin given IM for AMTSL. Mother and infant were stable after?delivery. Lacerations:? 1st degree, not bleeding, not repaired Blood loss: 25 mL. Blood loss measurement type: QBL? Sponge and needles counts are correct. Intrapartal Events: None Delivery monitor: external FHT (doppler) Route of delivery: Laceration description: Perineal - 1st Degree (not repaired) Estimated blood loss (mL): 25 Anesthesia type: None Disposition: floor Gender: Male presentation: vertex Placental Delivery Description: Spontaneous Cord Description: 3 Vessels OB Vag Delivery Procedures Additional Procedures ECV: No Cook Catheter Insertion: No NST: No D&C: No Laceration Repair: No Tubal Ligation : No Other: No
[2022-02-18] VITALS (9 sets, daily range): BP systolic 102–121; BP diastolic 62–76; PULSE 73–88; RESP 16–18; TEMP 36.3–37.2; O2SAT 96–98
[2022-02-18] MEDS: IBUPROFEN 600 MG TABLET PO ×2 (04:29→19:00)
--- NOTE | 2022-02-18 08:20 | PM.OBPNVD1 ---
Documented by User: Stacey Zapata CNM 02/18/22 08:21 OB - PN:Subj Subjective Interval history: [] is a [] y.o. who was admitted to L & D for []. She had an [uncomplicated] NVD. Patient comments OB post-: no complaints, pain well controlled, tolerating diet and flatus present Overton status: doing well Narrative: The patient feels well. The pain is well controlled with current medications. She has no new complaints. She is [breast feeding] and reports things are [] going well.? the patient has done well.? Vitals have been stable.? She has remained afebrile.? Has a good appetite, is tolerating a general diet. She is voiding without difficulty.? She is passing gas and has [not] had a bowel movement.? She is ambulating and denies any dizziness.? Has [Small] amount of rubra lochia. OB - PN: Obj Exam Physical Exam: Vital signs: Temp Pulse Resp BP Pulse Ox O2 Del Method 98 F 73 16 110/66 97 02/18/22 04:48 02/18/22 04:48 02/18/22 04:48 02/18/22 04:48 02/18/22 04:48 02/18/22 04:48 Narrative: GENERAL APPEARANCE: normal affect, alert, no distress MOOD: appropriate HEENT: normocephalic, neck supple, full ROM CHEST: Symmetrical chest wall movement. Normal respiratory effort. Clear to auscultation HEART: regular rate and rhythm ABDOMEN: soft, non-tender. Uterine fundus is firm, [] Umbilicus, Midline and is appropriate for the stage of recovery. Bowel sounds present. PERINEUM: [mild] edema of the perineum, there is a [] degree laceration that is healing well. EXTREMITIES: normal and [no] edema OB - PN: Obj Data Labs Labs: Laboratory Results - last 24 hr 02/17/22 02/17/22 02/17/22 17:42 19:51 19:51 WBC 13.53 H RBC 4.30 Hgb 12.9 Hct 37.7 MCV 88 MCH 30 MCHC 34 RDW Coeff of Jeff 12.9 Plt Count 157 Neut % (Auto) 73.2 H Lymph % (Auto) 19.6 L [place] % (Auto) 6.7 Eos % (Auto) 0.3 Baso % (Auto) 0.1 Neut # (Auto) 9.90 H Lymph # (Auto) 2.70 [place] # (Auto) 0.90 Eos # (Auto) 0.00 Baso # (Auto) 0.00 Abs Immat Gran (auto) 0.00 Imm/Tot Granulo (auto) 0.1 SARS-CoV-2 (PCR) Negative SARS-CoV-2 Blood Type B Negative Antibody Screen POSITIVE OB - PN: A/P Vaginal Delivery Assessment and Plan (1) state: Status: Acute (2) Lactating mother: Status: Acute Plan Plan: routine care Comments: G [] P [] status post [uncomplicated] NVD 1. Continue route PP cares 2. . May see if desired 3. Acute anemia. Iron supplement ordered 4. Anticipate discharge home tomorrow Documented by User: Addis Zhao CNM 02/18/22 08:32 OB - PN:Subj Subjective Time Seen by Provider: 08:25 Date Seen: 02/18/22 Interval history: Nataly is a 31 y.o. who was admitted to L & D for SROM & Labor. She had an uncomplicated NVD. Overton feeding status: exclusively Narrative: The patient feels well. The pain is well controlled with current medications. She has no new complaints. She is breast feeding and reports things are going well.? the patient has done well.? Vitals have been stable.? She has remained afebrile.? Has a good appetite, is tolerating a general diet. She is voiding without difficulty.? She is passing gas.? She is ambulating and denies any dizziness.? Has Small amount of rubra lochia. OB - PN: Obj Exam Physical Exam: Narrative: GENERAL APPEARANCE: normal affect, alert, no distress MOOD: appropriate HEENT: normocephalic, neck supple, full ROM CHEST: Symmetrical chest wall movement. Normal respiratory effort. Clear to auscultation HEART: regular rate and rhythm ABDOMEN: soft, non-tender. Uterine fundus is firm, 2 below Umbilicus, Midline and is appropriate for the stage of recovery. Bowel sounds present. PERINEUM: No edema of the perineum, there is a 1st degree laceration that is healing well. EXTREMITIES: normal and no edema OB - PN: A/P Vaginal Delivery Assessment and Plan (1) state: Status: Acute (2) Lactating mother: Status: Acute Plan day: 1 Comments: G 2 P 2 status post uncomplicated NVD Gestational Thrombocytopenia, Platelets with in normal prior to delivery 1. Continue route PP cares 2. . May see if desired 3. Anticipate discharge home tomorrow
[2022-02-18] MEDS: DOCUSATE SODIUM 100 MG CAPSULE PO (10:51)
[2022-02-19 01:15] VITALS: BP 109/71; PULSE 80; RESP 16; TEMP 36.7; O2SAT 96
[2022-02-19] MEDS: ACETAMINOPHEN 500 MG TABLET 1000 MG PO (01:27)
--- NOTE | 2022-02-19 07:45 | PM.OBDSVD1 ---
DS: Providers Provider Date Seen: 02/19/22 Date of admission: 02/17/22 17:38 Primary care physician: Not a Local Provider Admitting Clinician: Stacey Zapata CNM Attending Physician on discharge: Stacey Zapata CNM Date of Discharge: 02/19/22 DS: Diagnosis Discharge Diagnosis (1) Lactating mother: Status: Acute (2) state: Status: Acute (3) Type B blood, Rh negative: Status: Acute Exam Narrative: Exam Narrative: Discharge Examination? GENERAL APPEARANCE:? normal affect, alert, no distress? MOOD:? appropriate? CHEST:? clear to auscultation and percussion? HEART:? regular rate and rhythm? ABDOMEN:? soft, non-tender the uterine fundus is 2 cm Below Umbilicus, Midline and is appropriate for the stage of recovery.? PERINEUM:? mild edema of the perineum, there is a 1st degree that is healing well.? EXTREMITIES:? normal and no edema? Patient has no complaints? No active bleeding?? Doing well? She is requesting discharge home.? Const: Vital Signs, click to edit/add: Vital Signs - 24 hr 02/18/22 08:28 02/18/22 13:20 02/18/22 16:58 Temperature 98.3 F 97.4 F L 98.1 F Pulse Rate [Pulse Oximeter] 88 80 80 Respiratory Rate 16 18 18 Blood Pressure [Le ft Arm] 110/76 102/67 106/70 Pulse Oximetry 98 Oxygen Delivery Me thod Room Air 02/18/22 21:00 02/19/22 01:15 Temperature 98.4 F 98.1 F Pulse Rate [Pulse Oximeter] 80 80 Respiratory Rate 16 16 Blood Pressure [Le ft Arm] 117/76 109/71 Pulse Oximetry 96 96 Oxygen Delivery Me thod Room Air Room Air OB - DS: Summary Hospital Course Hospital Course: Patient is a [31year old, G 2 now P 2? admitted on 02/18/22 at 37 Weeks, 4 Days gestation for active labor.? She had an uncomplicated vaginal delivery.? She delivered a viable male .? She is breast feeding and reports things are well.? the patient has done well.? Her pain is well controlled with current medications.? She has no new complaints.? Vitals have been stable. She has remained afebrile. She is voiding without difficulty. She is passing gas and has had a bowel movement. She is ambulating and denies any dizziness. She is planning condoms for control.??? Peripartum Data delivery method: Vaginal Laceration description: Perineal - 1st Degree (without repair) Episiotomy description: None complications: none Infant Gender: Male Infant Discharge Plan: Home Status at Discharge Functional status at discharge: independent ambulation Overall status at discharge: patient is progressing back to baseline Time Spent with Patient Time attestation: Total time spent providing and/or coordinating discharge services: Discharge Plan Discharge Disposition: Home, Self-Care Date of Admission: 02/17/22 17:38 Attending Provider on Discharge: Ayana Sarmiento Primary Care Provider: Provider,Not a Local Condition: Stable Anticipated Discharge Date/Time: 02/19/22 10:00 Discharge Medications: New docusate sodium 100 mg Capsule 100 mg PO DAILY Qty: 90 0RF Rx Instructions: Take 1-2 tables daily as needed for constipation. ibuprofen 600 mg Tablet 600 mg PO Q6H PRNQty: 30 0RF Continued cholecalciferol (vitamin D3) 50 mcg (2,000 unit) tablet 2,000 unit PO DAILY doxylamine succinate 25 mg tablet 12.5 mg PO .Bedtime Probiotic 3 billion cell capsule 3,000 mmu cells PO QDAY Rx Instructions: administer with a meal One Daily Multi-Vit w-Mineral 4.5 mg iron tablet 1 tab PO QDAY calcium carbonate [Calcium 500] 500 mg calcium (1,250 mg) tablet,chewable 500 mg PO QDAY vitamin B complex [B Complex-Vitamin B12] Tablet 1 tab PO QDAY alfalfa Tablet PO QDAY Discharge Orders: Discharge Order (Routine); Ordered 02/19/22 Ordered By: Norma Steel Patient Education: OB Vaginal/Breast Feeding Activity Level: No Restrictions and Activity as Tolerated Discharge Diet: Regular Follow Up Appointments: Provider,Not a Local [Primary Care Provider] - Forms: [employer] Info Instructions
[2022-02-19 08:07] VITALS: BP 110/67; PULSE 80; RESP 16; TEMP 36.6; O2SAT 97
[2022-02-19] MEDS: DOCUSATE SODIUM 100 MG CAPSULE PO (08:13)
== END 2022-02-19 11:00 | disposition home or self-care (01) | DRG 560 ==
LOC: OB OUT 17:39 → OB 02-19 07:46
PROVIDERS: Admitting Provider Advanced Practice Midwife; Visit Provider Advanced Practice Midwife
DX: O99.12 Other diseases of the blood and blood-forming organs and certain disorders involving the immune mechanism complicating childbirth (principal); D69.6 Thrombocytopenia, unspecified; O70.0 First degree perineal laceration during delivery; Z3A.37 37 weeks gestation of pregnancy; Z37.0 Single live birth
CPT/HCPCS: 36415; 85025; 86850; 86870; 86880; 86900; 86901; 87635; 99213; A9270; J2590

== ENCOUNTER 2024-03-16 07:59 | Outpatient (CLI) | payer BC, SELFPAY ==
--- NOTE | 2024-03-16 08:15 | CRLHL7_ITS ---
For Patients: As a result of the Cures Act, medical imaging exams and procedure reports are released immediately into your electronic medical record. You may view this report before your referring provider. If you have questions, please contact your health care provider. INDICATION: First trimester scan, establish dates. COMPARISON: None. TECHNIQUE: Real-time colunga-scale imaging of the pelvis was performed. FINDINGS: Sonographic imaging demonstrates a single living intrauterine gestation. The embryo demonstrates a regular cardiac rate measuring 161 beats per minute. The embryo`s crown-rump length measurement of 3.5 cm corresponds to a gestational age of 10 weeks 3 days with a sonographic due date of 10/09/2024. There is a normal-appearing yolk sac. There are no gross abnormalities noted within the embryo at this early state of development. The gestational sac has a normal appearance. There is no evidence of a perigestational hemorrhage. The amount of fluid within the sac appears appropriate for gestational age. The cervix is closed. The myometrium appears normal. The ovaries are of normal size. Corpus luteal cyst right ovary. There are no suspicious fluid collections noted in the cul-de-sac. IMPRESSION: Normal first trimester OB ultrasound exam. Gestational age calculated at 10 weeks 3 days with a sonographic due date of 10/09/2024. Dictated by Jose Antonio Wheeler MD @ 03/16/2024 10:47:16 AM (Electronically Signed)
== END 2024-03-16 08:00 | disposition home or self-care (01) ==
PROVIDERS: Visit Provider Advanced Practice Midwife
DX: Z34.91 Encounter for supervision of normal pregnancy, unspecified, first trimester (principal); Z3A.10 10 weeks gestation of pregnancy
CPT/HCPCS: 76801; 83021; 86592; 86703; 86704; 86706; 86762; 86787; 86803; 86850; 86900; 86901; 87086; 87340

== ENCOUNTER 2024-03-16 09:06 | Outpatient (CLI) | payer BC, SELFPAY | END 2024-03-16 09:07 | disposition home or self-care (01) | PROVIDERS: Visit Provider Advanced Practice Midwife | DX: Z34.91 Encounter for supervision of normal pregnancy, unspecified, first trimester (principal); Z3A.09 9 weeks gestation of pregnancy | CPT/HCPCS: 83020; 83021; 85660; 86592; 86703; 86704; 86706; 86762; 86787; 86803; 86850; 86900; 86901; 87086; 87340; 87491; 87591 ==

== ENCOUNTER 2024-04-27 12:59 | Outpatient (CLI) | payer BC, SELFPAY | END 2024-04-27 13:00 | disposition home or self-care (01) | LOC: US 13:00 | PROVIDERS: Visit Provider Advanced Practice Midwife | DX: O09.899 Supervision of other high risk pregnancies, unspecified trimester (principal) | CPT/HCPCS: 76815; 76817 ==

== ENCOUNTER 2024-06-05 14:55 | Outpatient (CLI) | payer BC, SELFPAY | END 2024-06-05 14:56 | disposition home or self-care (01) | LOC: RAD 14:56 | PROVIDERS: Visit Provider Advanced Practice Midwife | DX: Z87.09 Personal history of other diseases of the respiratory system (principal); I34.1 Nonrheumatic mitral (valve) prolapse; I34.0 Nonrheumatic mitral (valve) insufficiency | CPT/HCPCS: 93306 ==

== ENCOUNTER 2024-06-22 09:17 | Outpatient (CLI) | payer BC, SELFPAY ==
--- NOTE | 2024-06-22 09:15 | CRLHL7_ITS ---
For Patients: As a result of the Cures Act, medical imaging exams and procedure reports are released immediately into your electronic medical record. You may view this report before your referring provider. If you have questions, please contact your health care provider. OB ULTRASOUND FOLLOWUP LIMITED, 06/22/2024 CLINICAL HISTORY: History of . COMPARISON: 06/01/2024 (MFM), 05/11/2024 (MFM), 04/27/2024. TECHNIQUE: Real time colunga scale imaging of the fetus was performed transabdominally and transvaginally. FINDINGS: LAUREN by LMP: 10/12/2024. GA: 24 weeks 0 days. CERVIX: Visualized. TV Measurement: 3.4 cm. POSITIONING: Breech. AMNIOTIC FLUID: 4.0 cm SDP. PLACENTA: Technique: TA. Placenta Position: Anterior. DOPPLERS: Heart Rate: 135 bpm. IMPRESSION: With transvaginal technique, the cervix is closed and measures 3.4 cm. No funneling or endocervical fluid. Jose Antonio Wheeler M.D. Diagnostic Radiologist [email or web address] Transcribed: 12:56 pm DW/Dictated by: Jose Antonio Wheeler MD @ 06/22/2024 12:27:00 PM (Electronically Signed)
== END 2024-06-22 09:18 | disposition home or self-care (01) ==
LOC: US 09:17
PROVIDERS: Visit Provider Advanced Practice Midwife
DX: O09.212 Supervision of pregnancy with history of pre-term labor, second trimester (principal); Z3A.24 24 weeks gestation of pregnancy
CPT/HCPCS: 76816; 76817; 87086

== ENCOUNTER 2024-07-24 12:14 | Outpatient (CLI) | payer BC, SELFPAY ==
--- NOTE | 2024-07-24 12:15 | CRLHL7_ITS ---
For Patients: As a result of the Century Cures Act, medical imaging exams and procedure reports are released immediately into your electronic medical record. You may view this report before your referring provider. If you have questions, please contact your health care provider. OBSTETRICAL ULTRASOUND LMP: 01/06/2024. LAUREN by LMP: 10/12/2024. Single. Comparison: 05/11/2024 MFM, 06/01/2024 MFM. INDICATION: Circumvallate placenta. TECHNIQUE: Real time colunga scale imaging of the fetus was performed. Transabdominal images. CERVIX: Not visualized. POSITIONING: Vertex. 6.0 cm. SDP (N: greater than 2 x 1 cm) PLACENTA: Technique: Transabdominal. PLACENTA POSITION: Anterior. DOPPLER: heart rate: 142 bpm. BIOMETRY: BPD: 6.9 cm. 27 w, 5 d, 14 percent. HC: 26.1 cm. 28 w, 2 d, 14 percent. AC: 24.0 cm. 28 w, 2 d, 34 percent. FL: 5.1 cm. 27 w, 3 d, 11 percent. FL/AC ratio: 21.43 percent. HC/AC ratio: 1.09. EFW: 1156 g. Weight: 2 lbs, 9 oz. age by this US: 28 w, 0 d. LAUREN by this US: 10/16/2024. Percentile by LAUREN: 18 percent. IMPRESSION: 1. Sonographic gestational age 28 weeks 0 days and sonographic due date 10/16/2024. Sonographic age 4 days behind the clinical age. 2. Estimated weight 18th percentile. Abdominal circumference 34th percentile. Jose Antonio Wheeler M.D. Diagnostic Radiologist [email or web address] PERLITA/sabi JR/Dictated by: Jose Antonio Wheeler MD @ 07/24/2024 1:05:00 PM (Electronically Signed)
== END 2024-07-24 12:15 | disposition home or self-care (01) ==
LOC: US 12:15
PROVIDERS: Visit Provider Advanced Practice Midwife
DX: O43.113 Circumvallate placenta, third trimester (principal); Z3A.28 28 weeks gestation of pregnancy
CPT/HCPCS: 76816

== ENCOUNTER 2024-07-24 13:31 | Outpatient (CLI) | payer BC, SELFPAY | END 2024-07-24 13:32 | disposition home or self-care (01) | LOC: NFLDREF 13:32 | PROVIDERS: Visit Provider Advanced Practice Midwife | DX: Z34.83 Encounter for supervision of other normal pregnancy, third trimester (principal); Z67.21 Type B blood, Rh negative | CPT/HCPCS: 86592; 86850; J2791 ==

== ENCOUNTER 2024-08-17 12:03 | Outpatient (CLI) | payer BC, SELFPAY | END 2024-08-17 12:04 | disposition home or self-care (01) | LOC: NFLDREF 12:04 | PROVIDERS: Visit Provider Physician Assistant | DX: Z34.93 Encounter for supervision of normal pregnancy, unspecified, third trimester (principal); Z3A.32 32 weeks gestation of pregnancy | CPT/HCPCS: 87086 ==

== ENCOUNTER 2024-09-07 13:33 | Outpatient (CLI) | payer BC, SELFPAY ==
--- NOTE | 2024-09-07 13:45 | CRLHL7_ITS ---
For Patients: As a result of the Century Cures Act, medical imaging exams and procedure reports are released immediately into your electronic medical record. You may view this report before your referring provider. If you have questions, please contact your health care provider. OB ULTRASOUND FOLLOW-UP GROWTH Clinical History: LMP: 01/06/2024. LAUREN by LMP: 10/12/2024. GA: 35 w, 0 d. Single. Comparison: 07/24/2024, 06/01/2024, 05/11/2024. INDICATION: Circumvallate placenta. TECHNIQUE: Real time colunga scale imaging of the fetus was performed. Transabdominal imaging performed. CERVIX: Not visualized. POSITIONING: Vertex. AMNIOTIC FLUID: 3.1 cm SDP (N: greater than 2 x 1 cm) PLACENTA: Technique: Transabdominal. PLACENTA POSITION: Anterior, left wall. DOPPLER: heart rate: 165 bpm. BIOMETRY: BPD: 8.5 cm. 34 w, 2 d, 30 percent. HC: 30.9 cm. 34 w, 3 d, 9 percent. AC: 29.2 cm. 33 w, 2 d, 12 percent. FL: 6.5 cm. 33 w, 5 d, 14 percent. FL/AC ratio: 22.37 percent. HC/AC ratio: 1.06. EFW: 2230 g. Weight: 4 lbs, 15 oz. age by this US: 34 w, 0 d. LAUREN by this US: 10/19/2024. Percentile by LAUREN: 13 percent. IMPRESSION: 1. Sonographic gestational age 34 weeks 0 days and sonographic due date 10/19/2024. Sonographic age 1 week behind the clinical age. 2. Estimated weight 13th percentile. Abdominal circumference 12th percentile. Jose Antonio Wheeler M.D. Diagnostic Radiologist [email or web address] SP/Dictated by: Jose Antonio Wheeler MD @ 09/07/2024 4:21:00 PM (Electronically Signed)
--- OUTSIDE RECORDS SUMMARY | 2024-09-08 01:10 | XMS_ITS | Continuity of Care Document ---
Author Organization [place] [facility] Address [address] [place] [address] Assessment Encounter Date Assessment Date Assessment LastModified by Organization Details LastModified Time 08/22/2024 08/22/2024 ASSESSMENT: Patient is a good candidate for conservative care and the prognosis is for a favorable outcome that achieves the patients' goals. We discussed etiology, activity modifications, home care, and other treatment options. Initially, it is recommended that the patient receive in-office treatment 1 times per week for 8 weeks at which time a re-evaluation will be performed to determine an appropriate change in plan. Initially, treatment will focus on joint manipulation to restore range of motion and reduce pain. We will slowly progress to therapeutic exercises and activities to improve function, strength, and stability may also be used as warranted. If the patient is not responding as expected, more invasive procedures will be discussed along with a referral. All considerations above were discussed with the patient and questions answered to satisfaction. If the patient should have any additional questions, or should the condition evolve or worsen, the patient should not hesitate to contact our office. [email or web address] Not available 08/23/2024 11:19:30 Plan of Treatment Reminders Order Date Submit Date Provider Last Modified By Organization Details Last Modified Time Details Appointments None record ed. Lab None record ed. Referral None record ed. Procedures None record ed. Surgeries None record ed. Imaging None record ed. Medication Orders None record ed. Patient TargetsNo targets recorded. Patient InstructionsNo instructions recorded. Reason for Referral None Reported. Problems Name Problem SNOMED Code Status Onset Date Resolution Date Notes Provider Name and Address Organization Details Recorded Time Thoracic segmental dysfunction 043160871 Active 2024 Dre Arevalo DC [address], [place], [address], [place] [facility] 21:21:39 Low back pain 726953540 Active 2024 Dre Arevalo DC [address], [place], [address], [place] [facility] 21:21:39 Lumbar segmental dysfunction 462100718 Active 2024 Dre Arevalo KELLI [address], [place], [address], [place] [facility] 21:21:39 Somatic dysfunction of sacral spine 199139432 Active 2024 Dre Arevalo KELLI [address], [place], [address], [place] [facility] 21:21:39 Neck pain 58970710 Active 2024 Dre Arevalo KELLI [address], [place], [address], [place] [facility] 21:21:42 Cervical segmental dysfunction 492226296 Active 2024 Dre Arevalo KELLI [address], [place], [address], [place] [facility] 21:21:42 Problem Notes None recorded. Procedures Surgical History Date Name Laterality Status Provider Name and Address Organization Details Recorded Time 5 21528: Spinal manipulation , 3 to 4 regions completed Naren Lyle DC [address], [place], [address], [place] [facility] 08/31/2024 11:03:50 5 40271: Spinal manipulation , 3 to 4 regions completed Naren Lyle DC [address], [place], [address], [place] [facility] 08/23/2024 11:19:35 5 48954: Spinal manipulation , 3 to 4 regions completed Naren Lyle DC [address], [place], [address], [facility] [place] [facility] 08/09/2024 19:14:48 5 35045: Spinal manipulation , 3 to 4 regions completed Naren Bishop KELLI Lyle [address], [place], [address], [facility] 07/05/2024 10:49:31 5 06714: Spinal manipulation , 3 to 4 regions completed Luis Fernando Edwards [place] [address], [place], [address], [facility] [place] [facility] 05/27/2024 21:52:19 5 58165: Spinal manipulation , 3 to 4 regions completed Dre Arevalo [place] [address], [place], [address], [facility] [place] [facility] 05/15/2024 21:23:04 Imaging Results None recorded. Procedure Notes None recorded. Medical Equipment None Reported. Medications Name Sig Start Date Stop Date Status Note LastModified by Organization Details LastModified Time ondansetron HCl 4 mg tablet TAKE ONE TABLET BY MOUTH EVERY SIX HOURS NEEDED FOR NAUSEA AND VOMITING * active Not Available Not Available No t Available Vitals None Recorded Social History None recorded. Functional Status None recorded. Mental Status None recorded. Family History Nothing Reported. Medical History No medical history recorded. Gynecological HistoryNo gynecological history recorded. Obstetrics History GPAL:G 0 P 0 0 0 0 Past Encounters Encounter ID Performer Location Encounter Start Date Encounter Closed Date Diagnosis/Indication Diagnosis SNOMED-CT Code Diagnosis ICD10 Code Diagnosis Note [id number] Naren Lyle DC [facility] [address] [place] [address] [place] [address] 08/09/2024 16:53:56 08/10/2024 19:03:24 Lumbar segmental dysfunction 855859248 M99.03 Low back pain 476610635 M54.50 Somatic dy sfunction of sacral spine 121314619 M99.04 Thoracic s egmental dysfunction 608664095 M99.02 [id number] Naren Lyle DC [facility] [address] [place] [address] [place] [address] 08/22/2024 17:42:42 08/29/2024 17:31:32 Lumbar segmental dysfunction 968856111 M99.03 Low back pain 330102612 M54.50 Somatic dy sfunction of sacral spine 035942338 M99.04 Thoracic s egmental dysfunction 111441424 M99.02 Health Concerns Section Related Observation LastModified by Organization Detai ls LastModified Time None Recorded Concern Status LastModified by Organization Details LastModified Time None Recorded Payers Encounter Date Sequence Insurance Name Policy Number Policy Leong Covered Member ID Leong Member ID Guarantor Name 08/22/2024 1 [facility] Omer Jerome [id number] Nataly Jerome Notes Date Note Type Note Provider Name and Address Organization Details Recorded Time 08/22/2024 text/html HPI - Lumbar SpineReported bypatient.Location: left Quality:aching Severity:moderate Timing:morning Aggravating Factors:walking; lifting; carrying; twisting Alleviating Factors:rest Naren Lyle DC [address], [place], [address], [facility] [place] [facility] 08/23/2024 11:20:06 OBGyn Episode No OBEpisode recorded.
--- OUTSIDE RECORDS SUMMARY | 2024-09-08 01:10 | XMS_ITS | Continuity of Care Document ---
Author Organization [place] [facility] Address [address] [place] [address] Assessment Encounter Date Assessment Date Assessment LastModified by Organization Details LastModified Time 08/30/2024 08/30/2024 ASSESSMENT: Patient is a good candidate for [...] to contact our office. [email or web address] Not available 08/31/2024 11:03:50 Plan of Treatment Reminders Order Date Submit [...] Organization Details Recorded Time Thoracic segmental dysfunction 992222192 Active 2024 Dre Arevalo DC [address], [place], [address], [place] [facility] 21:21:39 Low back pain 054875973 Active 2024 Dre Arevalo DC [address], [place], [address], [place] [facility] 21:21:39 Lumbar segmental dysfunction 395847707 Active 2024 Dre Arevalo KELLI [address], [place], [address], [place] [facility] 21:21:39 Somatic dysfunction of sacral spine 448794876 Active 2024 Dre Arevalo KELLI [address], [place], [address], [place] [facility] 21:21:39 Neck pain 79262966 Active 2024 Dre Arevalo KELLI [address], [place], [address], [place] [facility] 21:21:42 Cervical segmental dysfunction 681166979 Active 2024 Dre Arevalo KELLI [address], [place], [address], [place] [facility] 21:21:42 Problem Notes None recorded. Procedures Surgical History Date Name Laterality Status Provider Name and Address Organization Details Recorded Time 5 90330: Spinal manipulation , 3 to 4 regions completed Naren Lyle DC [address], [place], [address], [place] [facility] 08/31/2024 11:03:50 5 16838: Spinal manipulation , 3 to 4 regions completed Naren Lyle DC [address], [place], [address], [place] [facility] 08/23/2024 11:19:35 5 14030: Spinal manipulation , 3 to 4 regions completed Naren Lyle DC [address], [place], [address], [facility] [place] [facility] 08/09/2024 19:14:48 5 52119: Spinal manipulation , 3 to 4 regions completed Naren Bishop KELLI Lyle [address], [place], [address], [facility] 07/05/2024 10:49:31 5 63894: Spinal manipulation , 3 to 4 regions completed Luis Fernando Edwards [place] [address], [place], [address], [facility] 05/27/2024 21:52:19 5 44596: Spinal manipulation , 3 to 4 regions completed Dre Arevalo [place] [address], [place], [address], [facility] 05/15/2024 21:23:04 Imaging Results None recorded. Procedure [...] SNOMED-CT Code Diagnosis ICD10 Code Diagnosis Note [id number] Naren Lyle DC [facility] [address] [place] [address] [place] [address] 08/09/2024 16:53:56 08/10/2024 19:03:24 Lumbar segmental dysfunction 942122031 M99.03 Low back pain 089948275 M54.50 Somatic dy sfunction of sacral spine 803809793 M99.04 Thoracic s egmental dysfunction 756318954 M99.02 [id number] Naren Lyle DC [facility] [address] [place] [address] [place] [address] 08/22/2024 17:42:42 08/29/2024 17:31:32 Lumbar segmental dysfunction 889442498 M99.03 Low back pain 676995250 M54.50 Somatic dy sfunction of sacral spine 151073110 M99.04 Thoracic s egmental dysfunction 786173619 M99.02 [id number] Naren Lyle DC [facility] [address] [place] [address] 08/30/2024 10:02:33 09/01/2024 12:27:08 Lumbar segmental dysfunction 984145075 M99.03 Low back pain 196639252 M54.50 Somatic dy sfunction of sacral spine 998701066 M99.04 Thoracic s egmental dysfunction 524108567 M99.02 Health Concerns Section Related Observation LastModified by Organization Detai ls LastModified Time None Recorded Concern Status LastModified by Organization Details LastModified Time None Recorded Payers Encounter Date Sequence Insurance Name Policy Number Policy Leong Covered Member ID Leong Member ID Guarantor Name 08/30/2024 1 [facility] Omer Jerome [id number] Nataly Jerome Notes Date Note Type Note Provider Name and Address Organization Details Recorded Time 08/30/2024 text/html HPI - Lumbar SpineReported bypatient.Location: left Quality:aching Severity:moderate Timing:morning Aggravating Factors:walking; lifting; carrying; twisting Alleviating Factors:rest Naren Lyle DC [address], [place], [address], [facility] 08/31/2024 11:04:32 OBGyn Episode No OBEpisode recorded.
--- OUTSIDE RECORDS SUMMARY | 2024-09-08 01:10 | XMS_ITS | Data Portability ---
Author Organization [place] - [facility], [employer] - [employer] [facility] Address [address] [facility] [address] [place] [address] Assessment Encounter Date Assessment Date Assessment LastModified by Organization Details LastModified Time 07/05/2024 07/05/2024 ASSESSMENT: Patient is a good candidate for [...] should not hesitate to contact our office. Not available 07/05/2024 10:48:30 08/09/2024 08/09/2024 ASSESSMENT: Patient is a good candidate for [...] should not hesitate to contact our office. Not available 08/09/2024 19:14:48 08/22/2024 08/22/2024 ASSESSMENT: Patient is a good [...] should not hesitate to contact our office. Not available 08/23/2024 11:19:30 08/30/2024 08/30/2024 ASSESSMENT: Patient is a good [...] should not hesitate to contact our office. Not available 08/31/2024 11:03:50 Plan of Treatment [...] Organization Details Recorded Time Thoracic segmental dysfunction 523646693 Active 2024 Dre Arevalo, KELLI [address] [facility] [address], [facility] [place], [address], [place] [facility] 21:21:39 Low back pain 951364715 Active 2024 Dre Arevalo, [place] [address], [facility] [place], [address], [place] [facility] 21:21:39 Lumbar segmental dysfunction 909204098 Active 2024 Dre Arevalo, KELLI [address] [facility], [facility] [place], [address], [place] [facility] 21:21:39 Somatic dysfunction of sacral spine 821934844 Active 2024 Dre Arevalo, [place] [address] [facility] [address], [facility] [place], [address], [place] [facility] 21:21:39 Neck pain 74049014 Active 2024 Dre Arevalo, KELLI [address] [facility] [address], [facility] [place], [address], [place] [facility] 21:21:42 Cervical segmental dysfunction 238067868 Active 2024 Dre Arevalo, ID [address] [facility], [facility] [place], [address], [facility] - [facility] 21:21:42 Problem Notes None recorded. Procedures Surgical History Date Name Laterality Status Provider Name and Address Organization Details Recorded Time 5 74793: Spinal manipulation , 3 to 4 regions completed Scot Dario [facility], [place] [address], [place], [address], On license of [facility] 08/31/2024 11:03:50 5 23368: Spinal manipulation , 3 to 4 regions completed Naren [facility], [place] [address], [place], [address], On license of [facility] 08/23/2024 11:19:35 5 52722: Spinal manipulation , 3 to 4 regions completed [facility] Dario Ayalahill [facility], [place] [address], [place], [address], On license of [facility] 08/09/2024 19:14:48 5 17831: Spinal manipulation , 3 to 4 regions completed [facility] [place] [address], [place], [address], On license of [facility] 07/05/2024 10:49:31 5 09734: Spinal manipulation , 3 to 4 regions completed Luis Fernando Edwards, ID [address], [place], [address], On license of [facility] 05/27/2024 21:52:19 5 37624: Spinal manipulation , 3 to 4 regions completed Dre Arevalo, ID [address], [place], [address], On license of [facility] 05/15/2024 21:23:04 Imaging Results None [...] SNOMED-CT Code Diagnosis ICD10 Code Diagnosis Note [id number] Dre Arevalo DC [facility] [address] [place] [address] 05/15/2024 16:47:13 05/16/2024 09:55:31 Lumbar segmental dysfunction 801371457 M99.03 Low back pain 105259033 M54.50 Somatic dy sfunction of sacral spine 909170779 M99.04 Thoracic s egmental dysfunction 591027440 M99.02 Cervical s egmental dysfunction 078232532 M99.01 Neck pain 03027232 M54.2 [id number] Luis Fernando Edwards DC [facility] [address] [place] [address] 05/25/2024 11:51:29 05/29/2024 10:38:13 Cervical segmental dysfunction 034139964 M99.01 Thoracic s egmental dysfunction 336747346 M99.02 Neck pain 54481990 M54.2 Low back pain 739301898 M54.[id number] [facility] [address] [place] [address] 07/05/2024 10:11:46 07/05/2024 15:20:46 Lumbar segmental dysfunction 698234885 M99.03 Low back pain 065700866 M54.50 Somatic dy sfunction of sacral spine 008888667 M99.04 Thoracic s egmental dysfunction 296121199 M99.[id number] [facility] [address] [place] [address] 08/09/2024 16:53:56 08/10/2024 19:03:24 Lumbar segmental dysfunction 031306177 M99.03 Low back pain 296398054 M54.50 Somatic dy sfunction of sacral spine 917925211 M99.04 Thoracic s egmental dysfunction 401826379 M99.[id number] [facility] [address] [place] [address] 08/22/2024 17:42:42 08/29/2024 17:31:32 Lumbar segmental dysfunction 138956708 M99.03 Low back pain 913142644 M54.50 Somatic dy sfunction of sacral spine 209858710 M99.04 Thoracic s egmental dysfunction 187928256 M99.02 [id number] Naren Lyle DC [facility] [address] [place] [address] [facility] [place] [address] 08/30/2024 10:02:33 09/01/2024 12:27:08 Lumbar segmental dysfunction 123040813 M99.03 Low back pain 215878031 M54.50 Somatic dy sfunction of sacral spine 160897677 M99.04 Thoracic s egmental dysfunction 833952192 M99.02 Health Concerns Section Related Observation LastModified by Organization Detai ls LastModified Time None Recorded Concern Status LastModified by Organization Details LastModified Time None Recorded Advance Directives Directive None Recorded Payers Insurance Date Sequence Insurance Name Policy Number Policy Leong Covered Member ID Leong Member ID Guarantor Name 08/29/2024 1 [facility] Omereva Jerome [id number] Nataly Jerome Notes Date Note Type Note Provider Name and Address Organization Details Recorded Time 05/25/2024 text/html HPI - Cervical SpineReported bypatient.Location: left Quality:aching Severity:moderate Duration:2 weeks Timing:gradual Alleviating Factors:ice Aggravating Factors:sitting Associated Symptoms:no numbness/tingling Luis Fernando Edwards DC [address], [place], [address], On license of [facility] 05/27/2024 21:53:02 07/05/2024 text/html HPI - Lumbar SpineReported bypatient.Location: left Quality:aching Severity:moderate Timing:morning Aggravating Factors:walking; lifting; carrying; twisting Alleviating Factors:rest Naren Lyle DC [address], [place], [address], On license of [facility] 07/05/2024 10:49:43 08/09/2024 text/html HPI - Lumbar SpineReported bypatient.Location: left Quality:aching Severity:moderate Timing:morning Aggravating Factors:walking; lifting; carrying; twisting Alleviating Factors:rest Naren Lyle DC [address], [place], [address], On license of [facility] 08/09/2024 19:15:31 08/22/2024 text/html HPI - Lumbar SpineReported bypatient.Location: left Quality:aching Severity:moderate Timing:morning Aggravating Factors:walking; lifting; carrying; twisting Alleviating Factors:rest Naren Lyle DC [address], [place], [address], On license of [facility] 08/23/2024 11:20:06 08/30/2024 text/html HPI - Lumbar SpineReported bypatient.Location: left Quality:aching Severity:moderate Timing:morning Aggravating Factors:walking; lifting; carrying; twisting Alleviating Factors:rest Naren Lyle DC [address], [place], [address], On license of [facility] 08/31/2024 11:04:32 OBGyn Episode No OBEpisode recorded.
--- OUTSIDE RECORDS SUMMARY | 2024-09-08 01:10 | XMS_ITS | Clinical Summary ---
Author Organization [facility] Address [address] [place] [address] Care Team Providers Care Avionics Technician Name Role Phone Unavailable Primary Care Provider Unavailabl e Allergies Active Allergy Reactions Criticality Noted Date Comments Coffee (Coffea Arabica) GI Upset 08/22/2021 Medications 25/iron fum/folic/dha (-1 ORAL) Take by mouth. Active CALCIUM ORAL Take by mouth. Active cholecalciferol, vitamin D3, (VITAMIN D3 ORAL) Take by mouth. Active Lactobac no.41/Bifidobact no.7 (PROBIOTIC-10 ORAL) Take by mouth. Active Active Problems Problem Noted Date Diagnosed Date History of delivery, currently 08/22/2021 History of pneumothorax 08/22/2021 Overview (08/22/2021): 2011 Secondary to ruptured bleb/chest tube and surgery (cleary resection) without post surgery complications [facility] Supervision of high-risk Overview (08/22/2021): [facility] CONSULTATION ON 08/22/21 CONSULT VISIT ALERT: Create and link episode at day of visit . Document in Dating section LAUREN based on 07/24/21 7w5d Dating (different from SRO - US was not consistent with LMP) REASON FOR CONSULT: Hx PTD TODAY'S APPOINTMENT: MD Consultation PRIMARY DIAGNOSIS: 30 y.o. . Estimated Date of Delivery: 02/22/222019 34w4d NVD (PTL, neg wet prep and UA) Migraines Depression/anxiety Hx mitral valve prolapse (resolved as she got older) Hx blebectomy and left wedge resection d/t multiple pneomothorax LAST GROWTH: 07/24/21 7w5d Dating REFERRING PHYSICIAN/PHONE/LAST UPDATE: Stacey Zapata CNM - [place] Primary MD approves scheduling of recommended ultrasounds/testing: Yes SPECIALISTS/CONSULTS: Include: Specialty MD Clinic Name Phone# [place] and ADDED TO PATIENT CARE TEAM Yes CARE COORDINATION: GENETICS: Declined PROCEDURES: PERTINENT LABS: Labs reviewed? Yes Normal? Yes PERTINENT MEDS: Preferred delivery location: MD PLAN OF CARE: Encounters Date Type Department Care Team Description 06/29/2024 9:00 AM CDT Office Visit 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 Gender Identity Not on file Sexual Orientation Not on file Obstetrics History Para Term AB IAB SAB Ectopic Multiple Livin g Live Births 2 1 1 1 1 Date Outcome GA Total Labor Labor/2nd/3rd Weight Sex Type Anes PTL Jessica A1 A5 Name Clin 020 34w 4d 2.24 kg (4 lb 15 oz) M Vag Y Living Delivery Location:Hospital ( [place]) Last Filed Vital Signs Vital Sign Reading Time Taken Comments Blood Pressure 102/62 06/29/2024 9:29 AM CDT Pulse 81 06/29/2024 9:29 AM CDT Temperature - - Respiratory Rate - - Oxygen Saturation 100% 06/29/2024 9:29 AM CDT Inhaled Oxygen Concentration - - Weight 57.1 kg (125 lb 12.8 oz) 06/29/2024 9:29 AM CDT Height 171.5 cm (5' 7.5) 06/29/2024 9:29 AM CDT Body Mass Index 19.41 06/29/2024 9:29 AM CDT Plan of Treatment Health Maintenance Due Date Last Done Comments Tdap 2000 Depression screening for age 12+ 2001 HIV for age 15-65 2004 Hepatitis C screening for age 18-79 12/16/2007 Hepatitis B series for 19+ ( 1 of 3 - 19+ 3-dose series) 2008 Pneumococcal series for age 6-49 (1 of 2 - PCV) 2008 Tetanus booster 2009 Pap test for age 21-65 03/18/2023 03/18/2020, 2020 COVID-19 vaccine series ( season) 2023 Influenza Vaccine (Season Ended) 2024 BMI (ht and wt on same day) for age 18+ 06/29/2025 0 06/29/2024 Procedures Procedure Name Priority Date/Time Associated Diagnosis Comments QUALITY CONTROL AUDITOR THIN PREP PAP SCREEN IMAGED Routine 03/18/2020 12:00 PM BUSINESS [employer]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[employer] FACULTY MEMBER from Last 3 Months or Most Recently Relevant to Health Maintenance Results * QUALITY CONTROL AUDITOR THIN PREP PAP SCREEN IMAGED (03/18/2020 12:00 PM BUSINESS ANALYTICS FACULTY MEMBER) Case Report Gynecologic Cytology Report Case: [id number] Authorizing Provider: Stacey Zapata CNM Collected: 03/18/2020 1200 Ordering Location: [facility] Received: 03/19/2020 1723 First Screen: Ratna Owens Specimen: QUALITY CONTROL AUDITOR ThinPrep Vial Screening, Cervical/Vaginal 03/26/2020 6:58 PM BUSINESS ANALYTICS FACULTY MEMBER [facility]AL [facility]AT[facility] INTERPRETATION /RESULT NEGATIVE FOR INTRAEPITHELIAL LESION OR MALIGNANCY (NIL) (none) 03/26/2020 6:58 PM BUSINESS ANALYTICS FACULTY MEMBER [email or web address] ENTRAL [facility]ORAT[facility] at 1858 BUSINESS ANALYTICS FACULTY MEMBER SPECIMEN ADEQUACY Satisfactory for evaluation No endocervical component seen Scant cellularity 03/26/2020 6:58 PM BUSINESS ANALYTICS FACULTY MEMBER [email or web address] HPV REQUEST HPV and PAP 03/26/2020 6:58 PM BUSINESS ANALYTICS FACULTY MEMBER [facility] Additional Information 03/26/2020 6:58 PM BUSINESS ANALYTICS FACULTY MEMBER [facility] Comment: Interpreted at [facility] - [address], [place] [address] Automated Review Failed 03/26/2020 6:58 PM BUSINESS ANALYTICS FACULTY MEMBER [facility] Comment:Processing failed, m anual screening required. ThinPrep Imaging System, [employer] ANCILLARY TESTING QUALITY CONTROL AUDITOR HPV Ordered, Please see separate report 03/26/2020 6:58 PM BUSINESS ANALYTICS FACULTY MEMBER [facility] Note The pap test is a screening technique, not a diagnostic procedure. It is used primarily to screen for squamous cancers and precursor lesions. Published studies have shown that it is subject to both false negative and false positive results. The pap test should not be used as the sole means to diagnose or exclude pre-malignant and malignant lesions. 03/26/2020 6:58 PM BUSINESS ANALYTICS FACULTY MEMBER [facility] Other (Cervical/Vagina l) 03/18/2020 12:00 PM BUSINESS ANALYTICS FACULTY MEMBER 03/19/2020 5:23 PM BUSINESS ANALYTICS FACULTY MEMBER Stacey PETER PATHOLOGY/CYTOLOGY Final Re sult [facility] [address] [place] [address], [place] from Last 3 Months or Most Recently Relevant to Health Maintenance Insurance [facility]
--- OUTSIDE RECORDS SUMMARY | 2024-09-08 01:10 | XMS_ITS | Continuity of Care Document ---
Author Organization [place] - [employer] Address [address] [place] [address] Assessment Encounter Date Assessment Date Assessment LastModified by Organization Details LastModified Time 08/09/2024 08/09/2024 ASSESSMENT: Patient is a good [...] to contact our office. [email or web address] Not available 08/09/2024 19:14:48 Plan of Treatment Reminders Order Date Submit [...] Organization Details Recorded Time Thoracic segmental dysfunction 851849298 Active 2024 Dre Arevalo DC [address], [place], [address], [place] - [facility] 21:21:39 Low back pain 623159528 Active 2024 Dre Arevalo DC [address], [place], [address], [place] [facility] 21:21:39 Lumbar segmental dysfunction 225699831 Active 2024 Dre Arevalo KELLI [address], [place], [address], [place] [facility] 21:21:39 Somatic dysfunction of sacral spine 363741832 Active 2024 Dre Arevalo KELLI [address], [place], [address], [place] [facility] 21:21:39 Neck pain 89597890 Active 2024 Dre Arevalo KELLI [address], [place], [address], [place] [facility] 21:21:42 Cervical segmental dysfunction 554774204 Active 2024 Dre Arevalo KELLI [address], [place], [address], [place] [facility] 21:21:42 Problem Notes None recorded. Procedures Surgical History Date Name Laterality Status Provider Name and Address Organization Details Recorded Time 5 11003: Spinal manipulation , 3 to 4 regions completed Naren Lyle DC [address], [place], [address], [place] [facility] 08/31/2024 11:03:50 5 54047: Spinal manipulation , 3 to 4 regions completed Naren Lyle DC [address], [place], [address], [place] [facility] 08/23/2024 11:19:35 5 59546: Spinal manipulation , 3 to 4 regions completed Naren Lyle [place] [address], [place], [address], [facility] 08/09/2024 19:14:48 5 26221: Spinal manipulation , 3 to 4 regions completed Naren Lyle [place] [address], [place], [address], [facility] - [facility] 07/05/2024 10:49:31 5 99121: Spinal manipulation , 3 to 4 regions completed Luis Fernando Edwards [place] [address], [place], [address], [place] [facility] 05/27/2024 21:52:19 5 28490: Spinal manipulation , 3 to 4 regions completed Dre Arevalo [place] [address], [place], [address], [facility] - [facility] 05/15/2024 21:23:04 Imaging Results None recorded. Procedure [...] SNOMED-CT Code Diagnosis ICD10 Code Diagnosis Note [id number] [facility] [address] [place] [address] 08/09/2024 16:53:56 08/10/2024 19:03:24 Lumbar segmental dysfunction 506535206 M99.03 Low back pain 680139910 M54.50 Somatic dy sfunction of sacral spine 815876147 M99.04 Thoracic s egmental dysfunction 132791144 M99.02 Health Concerns Section Related Observation LastModified by Organization Detai ls LastModified Time None Recorded Concern Status LastModified by Organization Details LastModified Time None Recorded Payers Encounter Date Sequence Insurance Name Policy Number Policy Leong Covered Member ID Leong Member ID Guarantor Name 08/09/2024 1 [facility] Omer Jerome [id number] Nataly Jerome Notes Date Note Type Note Provider Name and Address Organization Details Recorded Time 08/09/2024 text/html HPI - Lumbar SpineReported bypatient.Location: left Quality:aching Severity:moderate Timing:morning Aggravating Factors:walking; lifting; carrying; twisting Alleviating Factors:rest Naren Lyle DC [address], [place], [address], [facility] - [facility] 08/09/2024 19:15:31 OBGyn Episode No OBEpisode recorded.
== END 2024-09-07 13:34 | disposition home or self-care (01) ==
LOC: US 13:33
PROVIDERS: Visit Provider Advanced Practice Midwife
DX: O43.113 Circumvallate placenta, third trimester (principal); O36.5930 Maternal care for other known or suspected poor fetal growth, third trimester, not applicable or unspecified; Z3A.35 35 weeks gestation of pregnancy
CPT/HCPCS: 76816; 87081; 87653

== ENCOUNTER 2024-09-22 00:30 | Inpatient (IN) | payer BC, SELFPAY ==
[2024-09-22] VITALS (13 sets, daily range): BP systolic 103–127; BP diastolic 61–81; PULSE 68–93; RESP 16–18; TEMP 36.7–37.2; O2SAT 95–96
--- NOTE | 2024-09-22 01:34 | P.LDBA_ITS ---
Subjective History of Present Illness Narrative: Nataly is a at 37 1/7 weeks being admitted to Labor and Delivery for spontaneous onset of labor. She reports her labor started yesterday morning but was very irregular throughout the day. She was able to get some naps between episodes of contractions. They were about 1-5 every hour until evening. She then tried to lay down to sleep and contractions became increasingly intense and regular at about 2030 pm. Her water broke in the car when they entered the [employer] lot to the hospital. She is supported in labor by her , Omer. Her full history and physical was dictated by SARITHA Hernandez on 09/14/2024. Please see this for details. Specific Issues/Plans Spouse: Omer GBS done at 35 weeks due to hx H&P:Completed 09/14/24 by Carolyn MELARA # Hx of delivery at 34.4 weeks. Offered MFM consultation: Completed 04/11/2024: Nuchal translucency WNL, declined serum aneuploidy. Cervical length assessment every 2 weeks from 16-24 weeks: all normal. Clinical evaluation of labor symptoms Consider steroids if high risk for imminent delivery Level II with MFM: normal 20 week urine culture: negative 28 week urine culture: 20 wk was not done until 24 wks, could consider repeating at 32 wks: [] # Hx of spontaneous pneumothorax Discussed with MFM at consult 04/11/2024: Recommended pulmonology consult (declined), met with genetic counselor for possible genetic etiologies, repeat maternal echo, REPEAT consultation with MFM to review work-up and make ongoing specific recommendations regarding management/delivery. Not evaluated with previous pregnancies. Extensive genetic counseling done 04/11 by Baylee, see note for further details. Please confirm these have been completed: Maternal echo: completed with MVP with trace regurgitation Repeat MFM consultation: Discussed at Level II # Hx of mitral valve prolapse, Echo in 2012 had no evidence of this 06/05:Echo: Leaflet mitral vavle prolapse with mild regurgitation present, no concerns 06/07: Increased heart palpitations: ZIO patch-normal with minor occasional PVC Cardiology referral: appointment 06/29: no concerns identified, will follow-up as needed and recommend repeat Echo in 3 years # Hx of depression and anxiety. Previously done therapy & medication, stable at this time # Varicella non-immune in previous , did not get vaccine PP. Recommend: vaccine PP # Low Pre- BMI # Blood Type B Negative NEEDS Rhogam at 28 weeks: given 07/24 NEEDS Rhogam pp # Circumvallate placenta Per MFM, growth at 28: EFW 18%ile 34 weeks: EFW 13%, AC 12% Ultrasound: 04/11/2024: Nuchal Translucency. SIUP at 13.5 weeks, nuchal translucency measurement WNL, nasal bone visualized. Recommended every 2 week cervical length assessment from 16-24 weeks with Level II at 18 weeks with [facility]. Additional recommendations not included on US report. See above for consultation recommendations. 04/27/2024: IMPRESSION: Viable intrauterine . No abnormalities seen. Cervix is closed measuring 3.8 cm in length. 05/11/2024 Level II with [facility]: SIUP, No anomalies however missing views of spine and kidney's, EFW 63%ile, Cervix is normal and closed, placenta is anterior and circumvallate. Recommend Maternal echo for hx of pneumothorax, anatomy follow-up in 3 weeks, and growth at 28 and 34 weeks. 06/01/2024: SIUP. Unremarkable anatomy, cervical length WNL, EFW 45%; follow-up cervical length every 2 weeks at [facility] 06/22/2024: IMPRESSION: With transvaginal technique, the cervix is closed and measures 3.4 cm. No funneling or endocervical fluid. 07/24/2024: IMPRESSION: 1.Sonographic gestational age 28 weeks 0 days and sonographic due date 10/16/2024. Sonographic age 4 days behind the clinical age. 2.Estimated weight 18th percentile. Abdominal circumference 34th percentile. 09/07/2024: IMPRESSION: 1. Sonographic gestational age 34 weeks 0 days and sonographic due date 10/19/2024. Sonographic age 1 week behind the clinical age. 2. Estimated weight 13th percentile. Abdominal circumference 12th percentile. OB - Problem Based A/P Additional Plan (1) Pain during labor: Status: Acute (2) Spontaneous onset of labor: Status: Acute (3) 37 weeks gestation of : Status: Acute (4) Circumvallate placenta: Status: Acute (5) History of pneumothorax: Status: Acute (6) History of premature delivery, currently : Status: Acute (7) Type B blood, Rh negative: Status: Acute Plan ASSESSMENT:? 34 at 37.1 weeks gestation? complicated by: hx of delivery with 1st , hx of spontaneous pneumothorax, hx of mitral valve prolapse, hx of depression and anxiety, varicella non-immune, low pre- BMI, Rh negative, circumvallate placenta? Labor type: Spontaneous, Active labor? Category 2 FHR pattern.?? Labor complicated by: none? GBS negative Rh negative? ? PLAN:? 1. Routine intrapartum cares as ordered. Continue with expectant management? 2. Monitoring per policy, continuous for NST, delivery imminent 3. Planning unmedicated . Desires water . Consent signed. Hep C negative. Candidate for analgesia of choice.?? 4. Patient encouraged to reposition and ambulate to promote physiologic labor and .? 5. Anticipate ? Delivery/Labor/Induction Plan Plan: expectant management OB Result Labs Blood Type: B (-) negative OB Exam Physical Exam Vital signs: Pulse BP 71 127/74 09/22/24 01:24 09/22/24 01:24 Narrative: Vitals Reviewed Constitutional:? Alert and oriented x3 HEENT:? Normocephalic, atraumatic Neck:? Supple Lungs:? Clear to auscultation bilaterally Heart:? Regular rate and rhythm, no murmur, rub or gallop Abdomen:? Soft, nontender, and gravid. Vertex by Jaden's, confirmed with cervical exam. Extremities:? No edema or erythema Cervix: 8 cm/90%/0 station/vertex NST: 145 bpm/moderate variability/15x15 accelerations/early decelerations/contractions Detailed Labor and Delivery Exam Patient Gravid: yes
--- NOTE | 2024-09-22 01:49 | W.PM.OBVAGDE ---
OB Procedure Vag Delivery Mother Details Mother Details: The patient is a 33 year-old, 3, now Para 3, admitted on 09/22/24 at 37.1 weeks gestation. : 3 Para: 3 Weeks Gestation: 37.1 Admission Date: 09/22/24 Additional Details Amniotic Membrane Status: SROM Amniotic Membrane Rupture Date: 09/22/24 Amniotic Membrane Rupture Time: 00:20 Amniotic Membrane Fluid Description: Clear Analgesia/Anesthesia Type: None Waterbirth: No Pitcoin: No (expectant management) Intrapartal Events: Precipitous Labor <3 Hrs Labor Onset: 22:30 Complete: 00:58 Pushin:06 Heart: heart tones during second stage were reassuring throughout. Delivery Details Delivery Date: 09/22/24 Delivery Time: 01:06 Route of delivery: Gender: Female Viability: Alive; Heart Rate Present Position at Delivery: OA Delivery Details: Patient was admitted for spontaneous onset of labor and progressed precipitously to pushing shortly after arrival. SROM of clear fluid at 0020 with arrival to the hospital in the car. Patient was assumed complete with pushing at 0058. of a viable female at 0106 in semi-high fowlers on the bed per patient preference. Vertex delivered OA. Nuchal cord wrapped around body reduced after delivery. No shoulder. Body delivered easily and without incident. passed to mothers abdomen with a vigorous cry. Cord was clamped and cut at > 5 minutes. APGARS were 8 at one minute and 9 at five minutes respectively. Mouth was bulb suctioned. Intact placenta with a 3 vessel cord delivered spontaneously at 0123. Upon inspection, circumvallate placenta was confirmed. Fundus firm. Intact perineum identified. QBL 50 cc. Mother and baby stable; mother plans to breastfeed. weight pending. 1 Minute Interval Total Score: 8 5 Minute Interval Total Score: 9 Additional Details Shoulder Dystocia: No Placenta Delivery Time: 01:23 Placental Delivery Description: Spontaneous Delivery repair: Vicryl Procedure Done: Global Blood Loss: 50 Laceration: None Blood Loss Measurement Type: QBL Bakri Used: No Cord Vessel Description: 3 Vessels, Nuchal Cord, Reduced and Around Body Event Summary Status: Mother and infant were stable after delivery. Disposition: floor
[2024-09-22] MEDS: IBUPROFEN 600 MG TABLET PO ×2 (08:01→19:25)
[2024-09-23 01:00] VITALS: BP 107/68; PULSE 90; RESP 18; O2SAT 96
--- NOTE | 2024-09-23 07:59 | P.DS_ITS ---
DS: Providers Provider Date Seen: 09/23/24 Date of admission: 09/22/24 00:30 Primary care physician: Not a Local Provider Admitting Clinician: Anna Perez CNM Attending Physician on discharge: Anna Perez CNM Date of Discharge: 09/23/24 DS: Diagnosis Discharge Diagnosis (1) care following vaginal delivery: Status: Acute (2) Type B blood, Rh negative: Status: Acute (3) Susceptible to varicella (non-immune), currently : Status: Acute (4) Adjustment disorder with anxious mood: Status: Acute Exam Narrative: Exam Narrative: GENERAL APPEARANCE:? normal affect, alert, no distress? MOOD:? appropriate? CHEST:? clear to auscultation and percussion? HEART:? regular rate and rhythm? BREASTS: soft, nontender, no erythema, nipples intact? ABDOMEN:? soft, non-tender the uterine fundus is U/2 and is appropriate for the stage of recovery.? PERINEUM:? no edema of the perineum, there is a intact perineum that is healing well.? EXTREMITIES:? normal and no edema? Const: Vital Signs, click to edit/add: Vital Signs - 24 hr 09/22/24 08:00 09/22/24 13:45 09/22/24 20:15 Temperature 98.8 F 98.0 F 98.9 F Pulse Rate [Pulse Oximeter] 73 87 93 Respiratory Rate 18 16 18 Blood Pressure [Le ft Arm] 104/65 109/69 103/66 Pulse Oximetry 95 96 96 Oxygen Delivery Me thod Room Air Room Air Room Air 09/23/24 01:00 Temperature Pulse Rate [Pulse Oximeter] 90 Respiratory Rate 18 Blood Pressure [Le ft Arm] 107/68 Pulse Oximetry 96 Oxygen Delivery Me thod Room Air Documenting provider has reviewed patient's vital signs: yes OB - DS: Summary Hospital Course Hospital Course: Nataly is a 33 y.o. G 3 now P 3 who was admitted to L & D for spontaneous labor. ?She had a NVD that was complicated by 37.1 weeks gestation and precipitous labor and delivery. The patient feels well. ?The pain is well controlled with current medications. ?She has no new complaints. ?She is breast feeding and reports things are going well although has some concerns for tongue tie as her other children have had it. the patient has done well.? Vitals have been stable.? She has remained afebrile.? Has a good appetite, is tolerating a general diet. ?She is voiding without difficulty.? She is passing gas and has not had a bowel movement.? She is ambulating and denies any dizziness.? Has small amount of rubra lochia. She is planning partner vasectomy and Caya for prevention. Problems: none Peripartum Data Infant delivery method: Vaginal Laceration description: None Episiotomy description: None complications: none [place] Infant Gender: Female Infant Discharge Plan: Home Status at Discharge Functional status at discharge: independent ambulation Overall status at discharge: patient is progressing back to baseline Time Spent with Patient Time attestation: Total time spent providing and/or coordinating discharge services: Discharge Plan Discharge Disposition: Home, Self-Care Date of Admission: 09/22/24 00:30 Attending Provider on Discharge: Norma Steel Primary Care Provider: Provider,Not a Local Condition: Stable Anticipated Discharge Date/Time: 09/23/24 10:00 Discharge Medications: New docusate sodium 100 mg Capsule 100 mg PO DAILY Qty: 90 0RF Rx Instructions: Take 1-2 tablets daily as needed for constipation. ibuprofen 600 mg Tablet 600 mg PO Q6H PRNQty: 60 0RF Continued cholecalciferol (vitamin D3) 50 mcg (2,000 unit) tablet 2,000 unit PO DAILY Multi-DHA(with vit K) 27 mg iron-800 mcg-260 mg capsule PO ondansetron HCl 4 mg tablet 4 mg PO Q6H PRN (Reason: nausea and vomiting) Qty: 30 0RF (DME) Caya Contoured 65-80 mm diaphragm See Rx Instructions .ROUTE .MEDSUPPLY Qty: 1 0RF Rx Instructions: As directed Discharge Orders: Discharge Order (Routine); Ordered 09/23/24 Ordered By: Norma Steel Patient Education: OB Vaginal/Breast Feeding Additional Instructions: Discharge instructions were reviewed with the patient including signs and symptoms of infection and home going medications Nothing vaginally for 6 weeks: no tampons or intercourse Do not drive while taking narcotic pain medication(s) Off Work or School for 8 weeks Symptoms to report to doctor: * Bleeding that saturates more than one pad per hour * Passing clots larger than the size of a golf ball * Pain not relieved by prescribed medication * Fever above 100.4 degrees Fahrenheit * A foul vaginal odor * Difficulty in emotions, mood, and functions * Thoughts of hurting yourself and/or * Painful, reddened area in your breast * Any drainage, redness, or tenderness in your IV/epidural site * Severe headache that doesn't improve after taking medications * Changes in vision, including temporary loss of vision, blurred vision, and/or light sensitivity * Upper abdominal pain (usually under ribs on the right side) * Decrease in urination or painful, frequent urinating * Chest pain * Shortness of breath * Tenderness or pain with redness and/swelling in the calf(s) of your leg 2-week visit: discuss infant feeding concerns, review control options and screen for anxiety/depression. 6-week visit for an annual exam. consultation services are available to all mothers and babies for the first year after delivery.? To make an appointment, please call [phone]. Activity Level: Activity as Tolerated Discharge Diet: Regular Follow Up Appointments: [facility] [Provider Group] Provider,Not a Local [Primary Care Provider, Family Practice] Forms: [employer] Info Instructions
[2024-09-23 08:20] VITALS: BP 101/65; PULSE 76; RESP 16; TEMP 36.6; O2SAT 98
[2024-09-23] MEDS: DOCUSATE SODIUM 100 MG CAPSULE PO (08:21)
[2024-09-23] MEDS: IBUPROFEN 600 MG TABLET PO (08:21)
== END 2024-09-23 10:56 | disposition home or self-care (01) | DRG 560 ==
LOC: OB OUT 00:31 → OB 00:31
PROVIDERS: Absent Provider Advanced Practice Midwife; Admitting Provider Advanced Practice Midwife; Visit Provider Advanced Practice Midwife
DX: O26.893 Other specified pregnancy related conditions, third trimester (principal); Z67.21 Type B blood, Rh negative; O62.3 Precipitate labor; O43.113 Circumvallate placenta, third trimester; O99.344 Other mental disorders complicating childbirth; F43.22 Adjustment disorder with anxiety; Z28.39 Other underimmunization status; Z3A.37 37 weeks gestation of pregnancy; Z37.0 Single live birth
CPT/HCPCS: 85461; 86592; G0463; A9270

== ENCOUNTER 2024-09-26 11:00 | Outpatient (CLI) | payer BC, SELFPAY ==
--- NOTE | 2024-09-26 13:23 | W.PM.LAC.MC ---
Consult Note - Mom Date of Visit Date of visit: 09/26/24 Reason for consultation: Assistance Needed, Breast/Nipple Issue and Low Milk Supply (history) Visit Code: Visit Patient's Information Phone number: [phone] : 3 Para: 3 Allergies coffee (Coffea arabica) Allergy (Unknown, Verified 09/20/24 10:20) Nausea Mother's Medical History: Medical History (Updated 09/23/24 @ 08:01 by Norma Steel CNM) Premature delivery ?O60.10X0 - labor with delivery, unspecified trimester, not applicable or unspecified (ICD-10) History of labor ?Z87.51 - Personal history of pre-term labor (ICD-10) History of pneumothorax ?Z87.09 - Personal history of other diseases of the respiratory system (ICD-10) MVP (mitral valve prolapse) (12/12/10) ?I34.1 - Nonrheumatic mitral (valve) prolapse (ICD-10) Uterine size date discrepancy ?O26.849 - Uterine size-date discrepancy, unspecified trimester (ICD-10) History of depression ?Z86.59 - Personal history of other mental and behavioral disorders (ICD-10) Appendicitis ?K37 - Unspecified appendicitis (ICD-10) ?Z34.90 - Encounter for supervision of normal , unspecified, unspecified trimester (ICD-10) Work Plans: home with kids Delivery Information Delivery type: Vaginal Gestational Age: 37+1 Gestational Weight For Age: AGA Weight: 2.615 kg Baby's Information Baby's Age at Visit: 4 days Baby's Provider or Clinic: [facility] Jaundice: Yes Past Experience Past Experience: Yes Current Frequency of Day Feedings: every 3 hrs day and night, needs waking for feedings Both Breasts: Yes Suck: strong for about 5-7 min, then gets sleepy Latch: slightly shallow Length of Time: 10-15 min ea sided Goals: a few years Pumping Pumping: Yes Quantity Pumped: pumped 1 time, got 7 ml after a feeding Supplementing EBM Supplement: No Formula Supplement: No Baby Elimination Number of Wet Diapers a Day: ea feeding Number of BM a Day: 3 or 4 a day, light brown, soft Breast/Nipple Condition Breast Information: Breasts are symmetrical with rounded lower quadrants, intramammary distance is less than 1.5 inches. No erythema. Nipples are supple, everted prior to feeding. Breast Shape: Round Engorgement: No Maternal Nipple Condition - Left: Common Nipple Maternal Nipple Condition - Right: Common Nipple Sore Nipples: Yes Interventions for Sore Nipples: Soothies/Hydrogel Pads and Other (silverettes) Baby Assessment Skin: Yellow (to belly button, legs pink) Tongue/frenulum: Normal/elastic Palate: Average Lips: Relaxed and Tight labial frenulum (cannot roll upper lip over nostrils, frenulum blanches with pressure) Jaw Alignment: Symmetrical Mucosa: [place], moist Onsite Observation Pre-Feed weight: 2.488 kg (4.9% down from birthweight) Post-Feed weight: 2.522 kg Milk Transferred (mL): 34 Position: Cross cradle Attachment/latch-on achieved: Easily Suck pattern: Suck burst and normal rest Swallow: Audible, consistent Behavior following feed: Relaxed, sleepy Pre-Nursing Left Nipple: Within Normal Limits Pre-Nursing Right Nipple: Within Normal Limits Post-Nursing Left Nipple: Creased/Beveled (slight) Post-Nursing Right Nipple: Creased/Beveled (slight) Assessments/Interventions Assessments/Interventions: Ashley latched to mom's RIGHT breast, latched well but slightly shallow; worked with mom to relatch with a deeper latch and reported increased comfort. Baby stayed nursing for 11 minutes. Transferred 22 ml of milk Ashley then latched to mom's LEFT breast, latched more deeply with original latch and nursed for another 15 minutes. Transferred 12 ml of milk. Ashley needed some support to stay latched; mom utilized breast compression near end of feeding to encourage baby to stay engaged in feeding with noticable swallows. Education provided: Early feeding cues to maximize timing of latching, Asymmetric latch technique for wide/deep latch to increase milk, Transfer for baby and increase comfort for mom (Discussed deeper latch will help decrease chompy latch), Supply/demand nature of milk supply, Need for frequent stimulation/milk removal, Sore nipple treatment options (silverettes and/or hydrogels good; no nipple cream under either of these), Alternative feeding methods (SNS, cup, finger feeding, bottling) (paced bottle feeding if need to supplement) and Pumping for milk management (discussed pumping after feedings 2x/day to increase supply given history of low milk supply) Feeding Plan: Breastfeed for 15 min max on each breast, listening for active swallowing Pump both breasts for: 10-15 minutes after feeding 1-2 times/day to try and stimulate a greater supply with this baby Feed baby 10-15 ml of EBM if baby acts hungry after or if not meeting expected output for poops and pees Use a syringe/feeding tube, cup, or bottle for feedings based on preference Rest, and repeat every 2-3 hours, watch for early feeding cues; some cluster feeding is expected Try skin to skin to increase milk production Follow-Up Suggested follow up: Appointment as needed Recommend baby be seen by provider for:: Pollo Bryson in 2 days for weight check; mom to call if has questions after that appointment re: weight gain and milk supply Also has appt with [facility] in [place] to evaluate tongue/lip/buccal ties Time Spent Time spent with patient (min): 90 Meds Home Medications and Allergies Home Medications ?Medication ?Instructions ?Recorded ?Confirmed ?Type cholecalciferol (vitamin D3) 50 2,000 unit PO DAILY 09/22/21 09/22/24 History mcg (2,000 unit) tablet diaphragms, contoured 65 mm-80 mm #1 ea 12/09/22 09/20/24 Rx vaginal (Caya Contoured) PNV no.151-iron 27 mg-folic 800 cap PO 03/16/24 09/20/24 History mcg-omega3 260 yx-sew-upb-fish capsule ( Multi-DHA (with vitamin K)) ondansetron HCl 4 mg tablet 4 mg PO Q6H PRN nausea and 03/16/24 09/22/24 Rx vomiting #30 tabs docusate sodium 100 mg capsule 100 mg PO DAILY #90 caps 09/23/24 Rx ibuprofen 600 mg tablet 600 mg PO Q6H PRN #60 tabs 09/23/24 Rx Allergies Allergy/AdvReac Type Severity Reaction Status Date / Time coffee (Coffea arabica) Allergy Unknown Nausea Verified 09/20/24 10:20
== END 2024-09-26 11:01 | disposition home or self-care (01) ==
LOC: OB LAC 11:00
PROVIDERS: Visit Provider Obstetrics & Gynecology
DX: Z39.1 Encounter for care and examination of lactating mother (principal)
CPT/HCPCS: G0463